=== PATIENT | female | born 1930 | race Caucasian/White ===

== ENCOUNTER 2016-09-30 11:22 | Inpatient (IN) | payer OTHER, MEDICARE ==
[~2016-09-30] VITALS: Ht 147.3 cm; Wt 42.6 kg
[~2016-09-30 11:22] MED LIST: AMLODIPINE10 MG PO; ARANESP200 MCG/0.; ASPIRIN CHILDRE81 MG PO; ATORVASTATIN CA40 MG PO; HYDRODIURIL 2525 MG PO; LASIX20 M1 PO; MYRBETRIQ25 MG PO; PERCOCET 325 MG1 TA2 PO; POTASSIUM CHLO10 ME1 PO; PRILOSEC 20MG C20 MG PO; TRAMADOL50 MG PO; VITAMIN D31000 IU PO
--- NOTE | 2016-09-30 11:35 | NUR ---
85 YEAR OLD FEMALE TO ER WITH COMPLAINTS OF SOB SINCE SATURDAY, O2 SAT ON RA 88-90 % , SOB INCREASES WITH EXERTION AND SPEAKING. PT HAS HISTORY OF ANEMIA, PT NOTED TO BE PALE. DENIES CP BUT STATES THAT SHE FEELS LIKE HER HEART IS RACING, HR 94 ON EKG. PT TO ROOM FROM DENNIS
--- NOTE | 2016-09-30 12:06 | NUR ---
APPRECIATE TRIAGE NOT, ALERT, DENIES ANY PAIN. PLACED ON DISPLAY ASSOCIATE, SINUS RHYTHM. AWAITING PROVIDER EVALUATION.
--- NOTE | 2016-09-30 13:03 | NUR ---
EVALUATED BY SANJU CHASE
--- NOTE | 2016-09-30 13:04 | ED GENERAL ADULT ---
History of Present Illness General Chief Complaint: Palpitations Stated Complaint: SOB/PALPATATIONS Source: patient, family, old records Exam Limitations: no limitations Vital Signs & Intake/Output Vital Signs & Intake/Output Vital Signs Date Time Temp Pulse Resp B/P B/P Pulse O2 O2 Flow FiO2 Mean Ox Delivery Rate 09/30 1403 97.8 81 19 131/60 95 Room Air 09/30 1319 81 131/60 09/30 1133 97.9 92 20 150/64 88 Room Air Allergies Coded Allergies: NO KNOWN ALLERGIES (06/06/15) Reconcile Medications Aspirin (Ecotrin*) 81 MG TABLET.DR 1 TAB PO DAILY HEART HEALTH (Reported) Atorvastatin Calcium (Lipitor) 40 MG TABLET 1 TAB PO DAILY CHOLESTEROL ( Reported) Cholecalciferol (Vitamin D3) (Vitamin D3) 400 UNIT TABLET 1 TAB PO DAILY SUPPLEMENT (Reported) Hydroxychloroquine Sulfate 200 MG TABLET 1 TAB PO D LUPUS (Reported) Omeprazole (Prilosec) 20 MG CAPSULE.DR 1 CAP PO DAILY GI (Reported) Potassium Chloride 10 MEQ TABLET.ER 2 TAB PO BID SUPPLEMENT (Reported) Prednisone 5 MG TABLET 1 TAB PO BID LUPUS (Reported) Triage Note: 85 YEAR OLD FEMALE TO ER WITH COMPLAINTS OF SOB SINCE SATURDAY, O2 SAT ON RA 88-90 % , SOB INCREASES WITH EXERTION AND SPEAKING. PT HAS HISTORY OF ANEMIA, PT NOTED TO BE PALE. DENIES CP BUT STATES THAT SHE FEELS LIKE HER HEART IS RACING, HR 94 ON EKG Triage Nurses Notes Reviewed? yes HPI: Patient is an 85-year-old female presents complaining of dyspnea with exertion and heart racing sensation. Symptoms onset on Saturday. Symptoms are mild at rest, worsened with exertion. Patient reports that she had 7 episodes of black diarrhea on Saturday, no black stools since then. Patient has a history of myelodysplastic disorder receives injections for anemia and has required blood transfusion previously. Patient takes 81 mg of aspirin daily, takes ibuprofen intermittently and has been on prednisone daily for the past one month. Patient denies chest pain, abdominal pain, dyspepsia, nausea, vomiting, cough, fevers, chills. (RENA BILLS,BRAYDEN) Past History Travel History Traveled to [place] past 21 day No Medical History Any Pertinent Medical History? 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 No (BRAYDEN DELGADILLO) Review of Systems Review of Systems Constitutional: Denies: chills, fever. EENTM: Reports: no symptoms. Respiratory: Reports: short of breath (WITH EXERTION). Denies: cough. Cardiovascular: Reports: palpitations. Denies: chest pain, peripheral edema, syncope. GI: Reports: changes in stool (saturday, NONE SINCE). Denies: abdominal pain, nausea, vomiting. Musculoskeletal: Reports: no symptoms. Skin: Reports: no symptoms. Neurological/Psychological: Reports: no symptoms. Hematologic/Endocrine: Reports: no symptoms. Immunologic/Allergic: Reports: no symptoms. (BRAYDEN DELGADILLO) Physical Exam Physical Exam General Appearance: well developed/nourished, alert, awake Head: atraumatic, normal appearance Eyes: Bilateral: normal appearance, PERRL, EOMI. Ears, Nose, Throat: normal pharynx, normal ENT inspection, hearing grossly normal Neck: normal inspection, supple, full range of motion Respiratory: normal breath sounds, chest non-tender, no respiratory distress, lungs clear Cardiovascular: regular rate/rhythm (NO APPRECIABLE MURMUR) Peripheral Pulses: 2+ dorsalis pedis (R), 2+ dorsalis pedis (L) Gastrointestinal: soft, non-tender Rectal: dark stool, heme positive Back: normal inspection, normal range of motion Extremities: normal inspection, normal capillary refill, normal range of motion, no edema Neurologic/Psych: awake, alert, oriented x 3, normal mood/affect Skin: intact, normal color, warm/dry Lymphatic: no anterior cervical bryan Core Measures ACS in differential dx? Yes ASA ordered for poss ACS? No-d/t bleeding/risk of CVA/TIA Diagnosis: No Severe Sepsis Present: No Septic Shock Present: No (BRAYDEN DELGADILLO) Progress Differential Diagnoses I considered the following diagnoses in my evaluation of the patient: Plan of Care: Orders Procedure Date/time Status Regular Diet 09/30 D Active BLOOD PRODUCT PICKUP 09/30 1512 Active Misc Message 09/30 1508 Active ED Holding Orders 09/30 1508 Active Vital Signs 09/30 1508 Active Code Status 09/30 1508 Active Admit to inpatient 09/30 1448 Active Patient Data 09/30 1440 Active LEUKOCYTE POOR (PACKED CELLS) 09/30 1419 Active Intake & Output 09/30 1339 Active MISTAKE 09/30 1305 Active Telemetry/Gm/Svp [employer] 09/30 1305 Active TROPONIN LEVEL 09/30 1305 Complete PROTHROMBIN TIME 09/30 1305 Complete COMPREHENSIVE METABOLIC PANEL 09/30 1305 Complete CBC WITHOUT DIFFERENTIAL 09/30 1305 Complete TYPE & SCREEN (NOT X-MATCH) 09/30 1305 Active EKG 09/30 1124 Active Laboratory Tests 09/30/16 1341: Anion Gap 10, Estimated GFR > 60, BUN/Creatinine Ratio 21.3, Glucose 117 H, Calcium 8.4, Total Bilirubin 0.4, AST 24, ALT 32, Alkaline Phosphatase 97, Troponin I < 0.01, Total Protein 7.1, Albumin 3.2 L, Globulin 3.9, Albumin/ Globulin Ratio 0.8 L, PT 12.1, INR 1.15, CBC w Diff MAN DIFF ORDERED, RBC 1.49 L, MCV 105.1 H, MCH 31.3 H, RDW 25.5 H, MPV 7.9, Gran % 45.0, Lymphocytes % 41.4, Monocytes % 13.6 H, Eosinophils % 0, Basophils % 0 L, Absolute Granulocytes 1.0 L, Segmented Neutrophils 60, Absolute Lymphocytes 0.9 L, Lymphocytes 35, Monocytes 5, Absolute Monocytes 0.3, Absolute Eosinophils 0, Absolute Basophils 0, Nucleated RBCs 9 H, Platelet Estimate ADEQUATE, Polychromasia 1+, Hypochromic-Microcytic 3+, Poikilocytosis 2+, Anisocytosis 2+, Macrocytic Cells 2+, Schistocytes , PUBS MCHC 29.8 L 09/30/2016 1:10:36 PM: Discussed with Dr. Bajwa 09/30/2016 2:20:30 PM: Critical hemoglobin discussed with patient and her family. Patient consented to blood transfusion after risks and benefits were discussed. Rectal exam performed no melena present but stool was dark and guaiac positive. 2 units of PRBC ordered. 09/30/2016 2:27:13 PM: Discussed with Dr. Tucker: can have admitting team contact him after they have evaluated patient. 09/30/2016 2:35:30 PM: Discussed with Dr. Carreon for admission (BRAYDEN DELGADILLO) Diagnostic Imaging: Viewed by Me: Radiology Read. Discussed w/RAD: Radiology Read. Initial ED EKG: NORMAL SINUS RHYTHM 94 BPM NORMAL AXIS, pvc PRESENT, MINIMAL st DEPRESSION IN LEADS v5 AND v6 THAT IS CHANGED FROM PREVIOUS ekg Prior EKG: changed Rhythm Strip: normal sinus rhythm (BRAYDEN DELGADILLO) Departure Departure Disposition: STILL A PATIENT Condition: Stable Clinical Impression Primary Impression: Symptomatic anemia Referrals: JIN FRANCISCO MD (PCP/Family) Departure Forms: Customer Survey General Discharge Information Admission Note Spoke With: ELISE CARREON MD Documentation of Exam: Documentation of any treatments & extenuating circumstances including Concerns Regarding Discharge (functional status, medication knowledge or non-compliance, living conditions, etc.) that warrant an admission rather than observation: Blood transfusion, serial complete blood cell counts, consider hematology and GI consultation. (BRAYDEN DELGADILLO) PA/PALLET SORTER Co-Sign Statement Statement: ED Attending supervision documentation- [x] I saw and evaluated the patient. I have also reviewed all the pertinent lab results and diagnostic results. I agree with the findings and the plan of care as documented in the PA's/PALLET SORTER's documentation. [] I have reviewed the ED Record and agree with the PA's/PALLET SORTER's documentation. [] Additions or exceptions (if any) to the PAs/PALLET SORTER's note and plan are summarized below: [] (SIM PROCTOR,NATALEE Borges) Critical Care Note Critical Care Note Critical Care Time: 30-74 min (BRAYDEN DELGADILLO)
[2016-09-30] MEDS ORDERED: HYDROXYCHLOROQ200 M2 PO (13:41)
[2016-09-30] MEDS ORDERED: PREDNISONE5 M1 PO (13:42)
[2016-09-30] MEDS ORDERED: VITAMIN D3400 UNI1 PO (13:42)
[2016-09-30] MEDS ORDERED: ASPIRIN EC81 M1 PO (13:43)
--- NOTE | 2016-09-30 13:44 | NUR ---
LABS DRAWN AND SENT BY THIS [facility]. BLUE,SST,PINK,LAV
[2016-09-30 13:55] LABS: ABSOLUTE BASOPHIL COUNT 0 /CUMM (0.0-0.2); ABSOLUTE EOSINOPHIL COUNT 0 /CUMM (0.0-0.7); ABSOLUTE MONOCYTE COUNT 0.3 /CUMM (0.10-0.60); BASOPHIL % 0 % (0.0-2.0); EOSINOPHIL % 0 % (0-5); RED BLOOD CELL CT 1.49 /CUMM (4.20-5.40)
[2016-09-30 13:58] LABS: ABSOLUTE LYMPH COUNT 0.9 /CUMM (1.2-3.4); MEAN CORPUSCULAR HGB 31.3 PG (27.0-31.0); MEAN CORPUSCULAR HGB CONC 29.8 G/DL (33.0-37.0); MEAN CORPUSCULAR VOLUME 105.1 FL (81.0-99.0); MEAN PLATELET VOLUME 7.9 FL (7.4-10.4); PLATELET COUNT 223 /CUMM (130-400); RBC DISTRIBUTION WIDTH 25.5 % (11.5-14.5)
[2016-09-30 14:01] LABS: PT 12.1 SEC (9.4-12.5)
[2016-09-30 14:02] LABS: HEMATOCRIT 15.7 % (37-47)
--- NOTE | 2016-09-30 14:05 | NUR ---
CRITICAL TEST RESULTS [id number] GRUPO HOANG 85 F TESTS AND RESULTS: HGB 4.7 HCT 15.7 Results received and read back by: MICHAEL ALMONTE Results received date and time: 09/30/16 1405 The following provider was notified of the results, and read the results back: BRAYDEN BILLS Notified date and time: 09/30/16 at 1405
--- NOTE | 2016-09-30 14:10 | RADIOLOGY REPORT ---
EXAMINATION: XR PORTABLE CHEST CLINICAL INFORMATION: Dyspnea with exertion. Rule out CHF. COMPARISON: 10/14/2015 TECHNIQUE: Portable AP upright view of the chest was obtained. FINDINGS: Lungs are hyperexpanded with architectural distortion in the upper lobes, consistent with COPD. No consolidation, pneumothorax, or pleural effusion. No appreciable interstitial edema. Cardiac silhouette is within normal limits in size. Pulmonary vasculature is normal. Multiple old left-sided rib fractures are again noted. Bones are osteopenic. There is scoliosis of the thoracolumbar spine with associated degenerative spondylosis. IMPRESSION: 1. Chronic changes of COPD. 2. No acute findings. No convincing radiographic evidence of CHF.
--- NOTE | 2016-09-30 14:10 | NUR ---
SANJU CHASE AT BEDSIDE
--- NOTE | 2016-09-30 14:18 | NUR ---
PT GUIAC+ PER SANJU NEAL.
[2016-09-30 14:26] LABS: WHITE BLOOD CELL COUNT 2.2 /CUMM (4.8-10.8)
--- NOTE | 2016-09-30 14:54 | History & Physical ---
KOJO PROCTOR,[facility] 09/30/16 1453: General Information and HPI MD Statement: I have seen and personally examined GRUPO HOANG and documented this H&P. The patient is a 85 year old F who presented with a patient stated chief complaint of [wrist, shortness breath, and palpitation]. Source of Information: patient, family, old records Exam Limitations: no limitations History of Present Illness: 85/F with PMHx HTN, HLD, SLE on Hydroxychloroquine, MDS diagnosed with BM biopsy on January, she is on darbepoetin every 2 weeks who presents to the [facility] ED complaining of exertional dyspnea, palpitation, and generalized weakness That started last Saturday. On last Saturday patient had multiple semi-formed, large and dark bowel movements, soon after on the same day she started complaining of generalize weakness, exertional dyspnea, and palpitation. Patient was admitted on March 2016 because of low H&H. Patient is taking aspirin and prednisone. She does not remember if she ever had a colonoscopy or upper endoscopy. Patient follows with oncology every 2 weeks to check CBC and receive darbepoetin , her last visit was 11 days ago, at that visit she was told that her H&H is normal. Patient denies nausea, vomiting, abdominal pain, chest pain, dizziness, lightheadedness, or loss of consciousness. Patient denies any bleeding from her chronic lower extremity varicocele. Allergies/Medications Allergies: Coded Allergies: NO KNOWN ALLERGIES (06/06/15) Home Med list Aspirin (Ecotrin*) 81 MG TABLET.DR 1 TAB PO DAILY HEART HEALTH (Reported) Atorvastatin Calcium (Lipitor) 40 MG TABLET 1 TAB PO DAILY CHOLESTEROL ( Reported) Cholecalciferol (Vitamin D3) (Vitamin D3) 400 UNIT TABLET 1 TAB PO DAILY SUPPLEMENT (Reported) Hydroxychloroquine Sulfate 200 MG TABLET 1 TAB PO D LUPUS (Reported) Omeprazole (Prilosec) 20 MG CAPSULE.DR 1 CAP PO DAILY GI (Reported) Potassium Chloride 10 MEQ TABLET.ER 2 TAB PO BID SUPPLEMENT (Reported) Prednisone 5 MG TABLET 1 TAB PO BID LUPUS (Reported) Past History Travel History Traveled to [place] past 21 day No Medical History Neurological: NONE EENT: NONE Cardiovascular: hypertension, hyperlipidemia Respiratory: NONE Gastrointestinal: NONE Hepatic: NONE Renal: NONE, urinary incontinence Musculoskeletal: NONE Psychiatric: NONE Endocrine: NONE Blood Disorders: MYELODYSPLASIA Cancer(s): NONE INFORMATICS CONSULTANT/Reproductive: NONE History of MRSA: No History of VRE: No History of CDIFF: No Influenza Vaccine: 03/10/15 Surgical History Surgical History: SKIN GRAFT Past Family/Social History Psychosocial History Services at Home: None ETOH Use: denies use Illicit Drug Use: denies illicit drug use Review of Systems Review of Systems Constitutional: Reports: weakness. Denies: chills, fever, unexplained weight loss. EENTM: Denies: blurred vision, double vision, visual changes. Cardiovascular: Reports: palpitations. Denies: chest pain, edema, orthopena, peripheral edema, syncope. Respiratory: Reports: short of breath. Denies: cough, hemoptysis, orthopnea, sputum production, stridor, wheezing. GI: Reports: melena. Denies: abdominal pain, bloating, constipation, diarrhea, distention, nausea, bloody stool, vomiting. Genitourinary: Denies: discharge, dysuria, hematuria. Musculoskeletal: Denies: back pain, joint pain. Exam & Diagnostic Data Last 24 Hrs of Vital Signs/I&O Vital Signs Date Time Temp Pulse Resp B/P B/P Pulse O2 O2 Flow FiO2 Mean Ox Delivery Rate 09/30 1652 98.2 77 19 130/60 87 Room Air 09/30 1627 98.9 73 18 124/60 93 Room Air 09/30 1403 97.8 81 19 131/60 95 Room Air 09/30 1319 81 131/60 09/30 1133 97.9 92 20 150/64 88 Room Air Intake & Output 09/30 1600 09/30 0800 09/30 0000 Intake Total 240 Output Total Balance 240 Intake, Oral 240 Patient 42.638 kg Weight Physical Exam General Appearance Alert, Oriented X3, Cooperative, No Acute Distress Skin No Rashes, bilateral lower extremity erythema up to mid vaughn. She is wearing tight socks with bandages because of recurrent varicose vein bleeding Skin Temp/Moisture Exam: Cool/Dry Sepsis Skin Exam (color): Pale HEENT Atraumatic, PERRLA, EOMI, Dry oral mucosa, pale bilateral conjunctiva Cardiovascular Regular Rate, Normal S1, Normal S2, No Murmurs, multiple extra beats Lungs Clear to Auscultation, Normal Air Movement Abdomen Soft, No Tenderness, increased bowel sounds Neurological Normal Speech, Strength at 5/5 X4 Ext Extremities No Edema, bilateral lower extremity erythema and bandages Last 24 Hrs of Labs/Red: Laboratory Tests 09/30/16 1341: Anion Gap 10, Estimated GFR > 60, BUN/Creatinine Ratio 21.3, Glucose 117 H, Calcium 8.4, Total Bilirubin 0.4, AST 24, ALT 32, Alkaline Phosphatase 97, Troponin I < 0.01, Total Protein 7.1, Albumin 3.2 L, Globulin 3.9, Albumin/ Globulin Ratio 0.8 L, PT 12.1, INR 1.15, CBC w Diff MAN DIFF ORDERED, RBC 1.49 L, MCV 105.1 H, MCH 31.3 H, RDW 25.5 H, MPV 7.9, Gran % 45.0, Lymphocytes % 41.4, Monocytes % 13.6 H, Eosinophils % 0, Basophils % 0 L, Absolute Granulocytes 1.0 L, Segmented Neutrophils 60, Absolute Lymphocytes 0.9 L, Lymphocytes 35, Monocytes 5, Absolute Monocytes 0.3, Absolute Eosinophils 0, Absolute Basophils 0, Nucleated RBCs 9 H, Platelet Estimate ADEQUATE, Polychromasia 1+, Hypochromic-Microcytic 3+, Poikilocytosis 2+, Anisocytosis 2+, Macrocytic Cells 2+, Schistocytes , PUBS MCHC 29.8 L Diagnostic Data EKG Results Sinus rhythm, regular, PVCs, no ST elevation or depression, no T-wave abnormalities. QTC within normal limits CXR Results No acute finding Assessment/Plan Assessment: 85/F who was admitted before because of low H&H. She had a history of multiple blood transfusion due to MDS. She was diagnosed last year with SLE and now on hydroxychloroquine and prednisone 5 mg twice a day. Patient reported multiple large dark stool on Saturday just prior to her symptom. #Acute anemia on top of chronic macrocytic anemia Patient CBC was done on oncology clinic visit 10 days ago and was above the target, today she presented with symptomatic anemia that developed post multiple large dark stool. She is taking aspirin and prednisone, this increases her chance of getting GI ulcers and bleed. Patient was found to be guaiac-positive in the ED. 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 Ration hemoglobin was 4.7. Constant for blood transfusion was obtained in the ED * Keep patient clear liquid with no reds allowed for now, then NPO starting midnight. * [place]son type, 2 packed RBCs transfusion. * We'll give IV fluid maintenance, patient is dehydrated. * CBC posttransfusion and then every 12 hours. * We'll continue PPI 40 mg * We will consult GI in the morning. * We will inform Dr. Gibbons oncologist. #Hyperlipidemia/hypertension/SLE * Continue statin * Continue hydroxychloroquine * Hold all antihypertensive medication Clear liquid diet, nothing by mouth starting midnight DVT prophylaxis Alps although only DNR/DNI As Ranked By This Provider Problem List: 1. Leg hematoma 2. Symptomatic anemia 3. Lupus (systemic lupus erythematosus) 4. HTN (hypertension) 5. HLD (hyperlipidemia) Core Measures/Miscellaneous Acute Coronary Syndrome ACS Diagnosis: No Cerebrovascular Accident CVA/TIA Diagnosis: No Congestive Heart Failure CHF Diagnosis: No Venous Thromboembolism VTE Risk Factors: Acute medical illness, Age > 40 No [facility] VTE prophylaxis d/t: No contraindications No VTE Pharm Prophylaxis d/t: No contraindications VTE Diagnosis: No VTE Type: NONE VTE Confirmed by (Test): NONE Severe Sepsis Severe Sepsis Present: No Septic Shock Septic Shock Present: No Miscellaneous Documentation Attending Case Discussed With: ELISE MUNOZ MD Primary Care Physician: JIN FRANCISCO MD. Patient sees these Specialists JIN FRANCISCO MD Level of Patient Care: General Medicine KIMBERLY MCKEON 09/30/161945: Resident Review Statement Resident Statement: examined this patient, discussed with agribusiness internship, agreed with agribusiness internship, discussed with family, reviewed EMR data (avail), reviewed images, amended to note Other Findings: This is 85-year-old female with past medical history of hypertension, hyperlipidemia, myelodysplastic syndrome on conservative management, SLE, GERD, bilateral leg swelling. Presented to the emergency department with chief complain off shortness of breath, palpitation and generalized weakness that was started last Saturday. Patient stated that she had multiple episode of diarrhea for 1 day that was started on , she stated the color of her stool was black without any bright blood been noticed. Patient stated that she follow with the consistent across the street, and that she receive darbepoetin alpha every other week. Patient stated that she received at least 2 time a transfusion when she went to the cancer Center since her discharge in March 2016. According to her daughters for the past couple months her H&H was stable and she didn't require any blood transfusion. Physical examination, lab and imaging as above. Assessment: -Acute and chronic anemia: The patient guaiac was positive in the emergency department, GI was consulted and stated that he will come to evaluate her in a.m. as the patient didn't have overt bleeding. Given the patient's underlying history of MDS that could be added onto her questionable GI bleeding. She will need to receive packed RBCs, and GI evaluation for possible inpatient or outpatient scope. -Generalized weakness: Most likely secondary to acute anemia, also the patient complain off palpitation that could be secondary to anemia. Plan: -Admit patient to general medicine floor -Vitals every shift, I and O's -Guaiac all stool -Repeat CBC after blood transfusion, transfuse as needed to keep H&H above 8 -Normal saline IV fluid hydration at 50 mL/h one bag -Start IV Protonix daily -Start the patient on clear liquid diet no reds -Vitamin B12, folate -Physical therapy consultation in a.m -Hematology consultation in a.m. -Gastrology consultation in a.m. -Hold home medication off aspirin -Continue the rest of her home medication -Pain pathway -DVT prophylaxis:Alps -DNI DNR TAMMY PROCTOR,[facility] 09/30/16 3938: Attending MD Review Statement Attending Statement Attending MD Statement: examined this patient, discuss w/resident/PA/MANAGER ZONE, agreed w/resident/PA/MANAGER ZONE, discussed with family, reviewed EMR data (avail), discussed with nursing, discussed with case mgmt, reviewed images, amended to note Attending Assessment/Plan: 85F with PMHx of HTN, HLD, SLE on Hydroxychloroquine, MDS on darbepoetin every 2 weeks c/w symptomatic anemia. Hb 4. Has been doing good for last 3 months, other odonnell she was getting transfussion every 2-3 weeks. Now c/w multiple dark stools. Admit to 2PRBC for now. She will need more transfusion. Inform Dr Jauregui about her admission. GI consult as Pt has Dark stools and is Guiac positive. Hold ASA. c/w PPI ALPS for DVT Px
--- NOTE | 2016-09-30 15:05 | NUR ---
IV ACCESS X 2 ESTABLISHED AT THIS TIME. #20 LFA AND #20 LAC. PLAN IS FOR ADMISSION TO HOSPITAL AND RECEIVE 2 UNITS PRBC PER SANJU CHASE.
--- NOTE | 2016-09-30 15:51 | NUR ---
BLOOD TRANSFUSION STARTED.
--- NOTE | 2016-09-30 16:12 | NUR ---
PT ADMITTED TO ROOM 230-2
--- NOTE | 2016-09-30 16:26 | NUR ---
REPORT GIVEN TO KORINA MAYNARD.
[2016-09-30 16:52] VITALS: BP 130/60
--- NOTE | 2016-09-30 17:12 | Admission Certification ---
Admission Certification Certification Statement - As attending physician, I certify that at the time of - admission, based on clinical presentation, severity of - symptoms, need for further diagnostic testing and - therapeutic interventions, and risk of adverse outcomes - without in-hospital treatment, in my clinical assessment, - this patient requires an acute hospital stay for a minimum - of two nights or longer. I have also considered psychsocial - factors such as support system, advanced age, financial - issues, cognitive issues, and failed out-patient treatments, - past re-admission history, safety of patient, and lack of - compliance as applicable. Specific rationale supporting this admission is: Symptomatic anemia, Hem/onc consult, will need PRBC, GI workup
--- NOTE | 2016-09-30 17:48 | NUR ---
ADMISSION NOTE- PT ARRIVED TO FLOOR AT 1645, A/O X 3 ON RA 87-88% DENIES SOB, PLACED ON 2L AT THIS TIME. DENIES CP DENIES PALPITATIONS, VSS, SKIN INTACT, BRUISING TO BLE, TRACE EDEMA, TWO BANDAIDS IN PLACE TO SHINS-ONE ON EACH- "BLOOD BLISTERS" DENIES PAIN OR DISCOMFORT. AX1 WITH CANE TO BATHROOM. FIRST UNIT OF BLOOD INFUSING FROM ER. PLAN IS TO GIVE 2 UNITS AND RECHECK CBC AT MIDNIGHT. CLEAR LIQ DIET. ORIENTED TO ROOM AND CALL MONTEMAYOR WILL MONITOR
[2016-09-30 18:08] VITALS: BP 132/60
--- NOTE | 2016-09-30 18:17 | NUR ---
FIRST UNIT OF BLOOD COMPLETED AT THIS TIME. VSS. CALL PLACED FOR SECOND UNIT OF BLOOD TO BE DELIVERED NOW.
[2016-09-30 19:26] VITALS: BP 128/60
[2016-09-30 21:46] VITALS: BP 128/68
--- NOTE | 2016-09-30 21:51 | NUR ---
2ND UNIT OF BLOOD FINISHED INFUSING AT THIS TIME. VSS. PT 97% ON 2L, PER SENIOR SQL DEVELOPER WEAN PT OFF O2, O2 TURNED DOWN TO 1L AT THIS TIME. PT DENIES SOB/CP. WILL CONTINUE TO MONITOR.
[2016-10-01 00:35] LABS: ABSOLUTE BASOPHIL COUNT 0 /CUMM (0.0-0.2); ABSOLUTE EOSINOPHIL COUNT 0 /CUMM (0.0-0.7); ABSOLUTE GRANULOCYTE CT 0.5 /CUMM (1.4-6.5); ABSOLUTE LYMPH COUNT 1.5 /CUMM (1.2-3.4); ABSOLUTE MONOCYTE COUNT 0.3 /CUMM (0.10-0.60); BASOPHIL % 0 % (0.0-2.0); EOSINOPHIL % 0 % (0-5); MEAN CORPUSCULAR HGB 30.9 PG (27.0-31.0); MEAN CORPUSCULAR HGB CONC 32.1 G/DL (33.0-37.0); MEAN PLATELET VOLUME 8.7 FL (7.4-10.4); PLATELET COUNT 195 /CUMM (130-400); RBC DISTRIBUTION WIDTH 21.9 % (11.5-14.5); WHITE BLOOD CELL COUNT 2.3 /CUMM (4.8-10.8)
[2016-10-01 00:36] LABS: GRANULOCYTE % 22.4 % (42.2-75.2)
[2016-10-01 01:01] LABS: HEMATOCRIT 23.8 % (37-47); MEAN CORPUSCULAR VOLUME 96.3 FL (81.0-99.0); RED BLOOD CELL CT 2.47 /CUMM (4.20-5.40)
[2016-10-01 06:52] VITALS: BP 124/70
--- NOTE | 2016-10-01 07:28 | Cons- Hematology ---
General Information and HPI Consulting Request Date of Consult: 10/01/16 Requested By: ELISE MUNOZ MD History of Present Illness: The patient is an 85-year-old woman with biopsy-proven myelodysplasia. She has been maintained on erythropoietin replacement therapy and red cell transfusions. She recently was begun on low dose prednisone by her dynamotor repairer resulting in stabilization of her hematocrit. This suggests a component of chronic hemolysis was present. Patient is now admitted with a sudden drop in hematocrit associated with black stools. Patient currently denies significant shortness of breath or chest pain. Stools have been found to be heme positive. Allergies/Medications Allergies: Coded Allergies: NO KNOWN ALLERGIES (06/06/15) Home Med List: Aspirin (Ecotrin*) 81 MG TABLET.DR 1 TAB PO DAILY HEART HEALTH (Reported) Atorvastatin Calcium (Lipitor) 40 MG TABLET 1 TAB PO DAILY CHOLESTEROL ( Reported) Cholecalciferol (Vitamin D3) (Vitamin D3) 400 UNIT TABLET 1 TAB PO DAILY SUPPLEMENT (Reported) Hydroxychloroquine Sulfate 200 MG TABLET 1 TAB PO D LUPUS (Reported) Omeprazole (Prilosec) 20 MG CAPSULE.DR 1 CAP PO DAILY GI (Reported) Potassium Chloride 10 MEQ TABLET.ER 2 TAB PO BID SUPPLEMENT (Reported) Prednisone 5 MG TABLET 1 TAB PO BID LUPUS (Reported) Current Medications: Current Medications Sig/Zeb Start time Last Medication Dose Route Stop Time Status Admin Acetaminophen 500 MG Q6P PRN 09/30 1615 AC PO Acetaminophen/ 1 TAB Q8P PRN 09/30 1615 AC Hydrocodone Bitart PO Atorvastatin Calcium 40 MG DAILY 10/01 1000 AC PO Cholecalciferol 400 IU DAILY 10/01 1000 AC PO Hydroxychloroquine 200 MG DAILY 10/01 1000 AC Sulfate PO Hydroxychloroquine 200 MG .[D] 09/30 1615 DC Sulfate PO Oxycodone/ 1 TAB Q6P PRN 09/30 1615 AC Acetaminophen PO Pantoprazole Sodium 40 MG DAILY 09/30 1615 AC 09/30 IV 2005 Patient Medication 1 UNIT ONE NR 09/30 1630 NE Teaching ED 09/30 1700 Patient Medication 1 UNIT ONE NR 09/30 1630 NE Teaching ED 09/30 1700 Patient Medication 1 UNIT ONE NR 09/30 1630 NE Teaching ED 09/30 1700 Prednisone 5 MG BID 10/01 1000 AC PO Sodium Chloride 1,000 ML Q10H 09/30 2350 AC 09/30 IV 10/01 0949 2355 Sodium Chloride 1,000 ML .Q10H 09/30 1615 DC IV Review of Systems Review of Systems: Patient denies headaches or dizziness. She denies nausea vomiting or abdominal pain. Patient denies significant shortness of breath presently. Patient denies dysuria hematuria. Patient denies focal neurologic deficit Past History Travel History Traveled to [place] past 21 day No Medical History Blood Transfusion Hx: Yes Neurological: NONE EENT: NONE Cardiovascular: hypertension, hyperlipidemia Respiratory: NONE Gastrointestinal: NONE Hepatic: NONE Renal: urinary incontinence Musculoskeletal: NONE Psychiatric: NONE Endocrine: NONE Blood Disorders: MYELODYSPLASIA Cancer(s): NONE C.O.D. CLERK/Reproductive: NONE Surgical History Surgical History: SKIN GRAFT RIGHT LEG Psychosocial History Services at Home: None Smoking Status: Former Smoker ETOH Use: denies use Illicit Drug Use: denies illicit drug use Exam & Diagnostic Data Vital Signs and I&O Vital Signs Date Time Temp Pulse Resp B/P B/P Pulse O2 O2 Flow FiO2 Mean Ox Delivery Rate 10/01 0652 98.1 66 16 124/70 98 Nasal 1.0L Cannula 10/01 0000 97 Nasal 1.0L Cannula 09/30 2146 98.4 68 16 128/68 97 Nasal 2.0L Cannula 09/30 1926 98.1 69 20 128/60 100 Nasal Cannula 09/30 1808 98.2 67 19 132/60 97 Nasal Cannula 09/30 1652 98.2 77 19 130/60 87 Room Air 09/30 1627 98.9 73 18 124/60 93 Room Air 09/30 1403 97.8 81 19 131/60 95 Room Air 09/30 1319 81 131/60 09/30 1133 97.9 92 20 150/64 88 Room Air Intake & Output 10/01 0800 10/01 0000 09/30 1600 Intake Total 200 1050 240 Output Total Balance 200 1050 240 Intake, Blood 700 Product Intake, Oral 200 350 240 Number 0 Bowel Movements Patient 94 lb 0.01 oz 94 lb 0.01 oz Weight Gen.: in NAD ENT: Sclera anicteric Chest: Normal respiratory effort, decreased breath sounds Cor: RRR, no extra sounds Abdomen: Soft, bowel sounds present, no tenderness, no rebound Extremities: Without clubbing, cyanosis, or asymmetric edema Neurology: Alert and oriented 3, no gross deficit Skin: No rashes Last 48 Hours of Lab Results: Laboratory Tests 10/01 09/30 0000 1341 Chemistry Sodium (137 - 145 mmol/L) 137 Potassium (3.5 - 5.1 mmol/L) 4.5 Chloride (98 - 107 mmol/L) 101 Carbon Dioxide (22 - 30 mmol/L) 25 Anion Gap (5 - 16) 10 BUN (7 - 17 mg/dL) 17 Creatinine (0.5 - 1.0 mg/dL) 0.8 Estimated GFR (>60 ml/min) > 60 BUN/Creatinine Ratio (7 - 25 %) 21.3 Glucose (65 - 99 mg/dL) 117 H Calcium (8.4 - 10.2 mg/dL) 8.4 Total Bilirubin (0.2 - 1.3 mg/dL) 0.4 AST (14 - 36 U/L) 24 ALT (9 - 52 U/L) 32 Alkaline Phosphatase (<127 U/L) 97 Troponin I (< 0.11 ng/ml) < 0.01 Total Protein (6.3 - 8.2 g/dL) 7.1 Albumin (3.5 - 5.0 g/dL) 3.2 L Globulin (1.9 - 4.2 gm/dL) 3.9 Albumin/Globulin Ratio (1.1 - 2.2 %) 0.8 L Vitamin B12 (239 - 931 pg/mL) 955 H Folate (2.76 - 20.0 ng/mL) > 20.0 H Coagulation PT (9.4 - 12.5 SEC) 12.1 INR (0.90 - 1.19) 1.15 Hematology CBC w Diff MAN DIFF ORDERED MAN DIFF ORDERED WBC (4.8 - 10.8 /CUMM) 2.3 L 2.2 L RBC (4.20 - 5.40 /CUMM) 2.47 L 1.49 L Hgb (12.0 - 16.0 G/DL) 7.6 L 4.7 *L Hct (37 - 47 %) 23.8 L 15.7 *L MCV (81.0 - 99.0 FL) 96.3 105.1 H MCH (27.0 - 31.0 PG) 30.9 31.3 H RDW (11.5 - 14.5 %) 21.9 H 25.5 H Plt Count (130 - 400 /CUMM) 195 223 MPV (7.4 - 10.4 FL) 8.7 7.9 Gran % (42.2 - 75.2 %) 22.4 L 45.0 Lymphocytes % (20.5 - 51.1 %) 64.2 H 41.4 Monocytes % (1.7 - 9.3 %) 13.4 H 13.6 H Eosinophils % (0 - 5 %) 0 0 Basophils % (0.0 - 2.0 %) 0 L 0 L Absolute Granulocytes (1.4 - 6.5 /CUMM) 0.5 L 1.0 L Segmented Neutrophils (42.2 - 75.2 %) 28 L 60 Absolute Lymphocytes (1.2 - 3.4 /CUMM) 1.5 0.9 L Lymphocytes (20.5 - 51.1 %) 68 H 35 Monocytes (1.7 - 9.3 %) 4 5 Absolute Monocytes (0.10 - 0.60 /CUMM) 0.3 0.3 Absolute Eosinophils (0.0 - 0.7 /CUMM) 0 0 Absolute Basophils (0.0 - 0.2 /CUMM) 0 0 Nucleated RBCs (0.0 - 0.0 /100WBC) 4 H 9 H Platelet Estimate (ADEQUATE) ADEQUATE ADEQUATE Polychromasia 1+ 1+ Hypochromic-Microcytic 3+ Poikilocytosis 2+ Anisocytosis 2+ Macrocytic Cells 1+ 2+ Schistocytes PUBS MCHC (33.0 - 37.0 G/DL) 32.1 L 29.8 L Assessment/Plan Assessment: 1. MDS-improved with transfusion. Hemolysis seems unlikely given normal total bilirubin Recommend- Continue prednisone 5 mg twice a day Transfuse to keep hematocrit > 24% 2. GI bleeding-as per gastroenterology. Workup seems appropriate given sudden drop in hematocrit from baseline of 30%(recently) Recommendations: .. Consult Acknowledgment - Thank you for your consult request.
[2016-10-01 08:14] LABS: ABSOLUTE BASOPHIL COUNT 0 /CUMM (0.0-0.2); ABSOLUTE EOSINOPHIL COUNT 0 /CUMM (0.0-0.7); ABSOLUTE GRANULOCYTE CT 1.3 /CUMM (1.4-6.5); ABSOLUTE LYMPH COUNT 1.3 /CUMM (1.2-3.4); ABSOLUTE MONOCYTE COUNT 0.1 /CUMM (0.10-0.60); BASOPHIL % 0.3 % (0.0-2.0); EOSINOPHIL % 0.2 % (0-5); HEMATOCRIT 24.6 % (37-47); MEAN CORPUSCULAR HGB 30.6 PG (27.0-31.0); MEAN CORPUSCULAR HGB CONC 31.7 G/DL (33.0-37.0); MEAN CORPUSCULAR VOLUME 96.4 FL (81.0-99.0); MEAN PLATELET VOLUME 8.5 FL (7.4-10.4); PLATELET COUNT 171 /CUMM (130-400); RBC DISTRIBUTION WIDTH 23.6 % (11.5-14.5); RED BLOOD CELL CT 2.55 /CUMM (4.20-5.40); WHITE BLOOD CELL COUNT 2.7 /CUMM (4.8-10.8)
[2016-10-01 08:36] LABS: GRANULOCYTE % 47.9 % (42.2-75.2)
--- NOTE | 2016-10-01 11:39 | PN- Housestaff ---
See Addendum Subjective Follow-up For: Acute anemia on top of chronic anemia Subjective: Afebrile, hemodynamically stable, no acute overnight events reported. Patient H &H is stable posttransfusion yesterday. Patient denies any current active complaints. She reported that all her symptom significantly improved post transfusion. Review of Systems Constitutional: Reports: no symptoms. Objective Last 24 Hrs of Vital Signs/I&O Vital Signs Date Time Temp Pulse Resp B/P B/P Pulse O2 O2 Flow FiO2 Mean Ox Delivery Rate 10/01 1418 97.0 66 18 112/60 98 Room Air 10/01 0800 98 Nasal 1.0L Cannula 10/01 0652 98.1 66 16 124/70 98 Nasal 1.0L Cannula 10/01 0000 97 Nasal 1.0L Cannula 09/30 2146 98.4 68 16 128/68 97 Nasal 2.0L Cannula 09/30 1926 98.1 69 20 128/60 100 Nasal Cannula 09/30 1808 98.2 67 19 132/60 97 Nasal Cannula 09/30 1652 98.2 77 19 130/60 87 Room Air 09/30 1627 98.9 73 18 124/60 93 Room Air Intake & Output 10/01 1600 10/01 0800 10/01 0000 Intake Total 235 901 1221 Output Total Balance 979 900 0644 Intake, Blood 700 Product Intake, IV 400 Intake, Oral 500 200 350 Number 0 Bowel Movements Patient 42.638 kg Weight Physical Exam General Appearance: Alert, Oriented X3, Cooperative, No Acute Distress HEENT: Atraumatic, PERRLA, EOMI, Mucous Membr. moist/pink Cardiovascular: Regular Rate, Normal S1, Normal S2, No Murmurs Lungs: Clear to Auscultation, Normal Air Movement Abdomen: Normal Bowel Sounds, Soft, No Tenderness Neurological: Normal Speech Extremities: No Cyanosis, No Edema, B/L LE erythema Current Medications: Current Medications Sig/Zeb Start time Last Medication Dose Route Stop Time Status Admin Acetaminophen 500 MG Q6P PRN 09/30 1615 AC PO Acetaminophen/ 1 TAB Q8P PRN 09/30 1614 AC Hydrocodone Bitart PO Atorvastatin Calcium 40 MG DAILY 10/01 1000 AC 10/01 PO 906 Cholecalciferol 400 IU DAILY 10/01 1000 AC 10/01 PO 09 Hydroxychloroquine 200 MG DAILY 10/01 1000 AC 10/01 Sulfate PO 0907 Hydroxychloroquine 200 MG .[D] 09/30 161 DC Sulfate PO Oxycodone/ 1 TAB Q6P PRN 09/30 161 AC Acetaminophen PO Pantoprazole Sodium 40 MG DAILY 09/30 1615 AC 10/01 IV 0907 Patient Medication 1 ED .STK-MED ONE 10/01 1348 DC Teaching ED 10/01 1349 Patient Medication 1 UNIT ONE NR 09/[address] Teaching ED 09/30 1700 Patient Medication 1 UNIT ONE NR 09/[address] Teaching ED 09/30 1700 Patient Medication 1 UNIT ONE NR 09/[address] [facility] ED 09/30 1700 Prednisone 5 MG BID 10/01 1000 AC 10/01 PO 0907 Sodium Chloride 1,000 ML Q10H 09/30 2350 DC 09/30 IV 10/01 0949 2355 Sodium Chloride 1,000 ML .Q10H 09/30 161 DC IV Last 24 Hrs of Lab/Red Results Last 24 Hrs of Labs/Mics: Laboratory Tests 10/01/16 0700: Anion Gap 10, Estimated GFR > 60, BUN/Creatinine Ratio 12.5, CBC w Diff MAN DIFF ORDERED, RBC 2.55 L, MCV 96.4, MCH 30.6, RDW 23.6 H, MPV 8.5, Gran % 47.9, Lymphocytes % 48.8, Monocytes % 2.8, Eosinophils % 0.2, Basophils % 0.3, Absolute Granulocytes 1.3 L, Segmented Neutrophils 38 L, Band Neutrophils 2, Absolute Lymphocytes 1.3, Lymphocytes 56 H, Monocytes 4, Absolute Monocytes 0.1 L, Absolute Eosinophils 0, Absolute Basophils 0, Nucleated RBCs 2 H, Platelet Estimate VERIFIED BY SMEAR, Polychromasia 1+, Anisocytosis 1+, Macrocytic Cells 1+, PUBS MCHC 31.7 L 10/01/16 0000: CBC w Diff MAN DIFF ORDERED, RBC 2.47 L, MCV 96.3, MCH 30.9, RDW 21.9 H, MPV 8.7, Gran % 22.4 L, Lymphocytes % 64.2 H, Monocytes % 13.4 H, Eosinophils % 0 , Basophils % 0 L, Absolute Granulocytes 0.5 L, Segmented Neutrophils 28 L, Absolute Lymphocytes 1.5, Lymphocytes 68 H, Monocytes 4, Absolute Monocytes 0.3 , Absolute Eosinophils 0, Absolute Basophils 0, Nucleated RBCs 4 H, Platelet Estimate ADEQUATE, Polychromasia 1+, Macrocytic Cells 1+, PUBS MCHC 32.1 L Assessment/Plan Assessment: 85/F who was admitted before because of low H&H. She had a history of multiple blood transfusion due to MDS. She was diagnosed last year with SLE and now on hydroxychloroquine and prednisone 5 mg twice a day. Patient reported multiple large dark stool on Saturday just prior to her symptom. #Acute anemia on top of chronic macrocytic anemia Patient CBC was done on oncology clinic visit 10 days ago and was above the target, today she presented with symptomatic anemia that developed post multiple large dark stool few days prior to admission. She is taking aspirin and prednisone, this increases her chance of getting GI ulcers and bleed. Patient was found to be guaiac-positive in the ED. 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 On admission hemoglobin was 4.7. Consent for blood transfusion was obtained in the ED. patient received 2 packed blood transfusion yesterday after which her hemoglobin being increased to 7.4. * Keep patient clear liquid with no reds allowed for now * CBC every 12 hours. * We'll continue PPI 40 mg * We will follow GI recommendation * We will follow Dr. Gibbons oncologist recommendation #Hyperlipidemia/hypertension/SLE * Continue statin * Continue hydroxychloroquine * Hold all antihypertensive medication #Increase oxygen demand Sedated patient required 2 L of oxygen to saturate above 92. This morning she is saturating well on 1 L of oxygen. She required no oxygen at baseline. * We will try to wean patient off oxygen Clear liquid diet DVT prophylaxis Alps although only DNR/DNI Problem List: 1. HTN (hypertension) 2. HLD (hyperlipidemia) 3. Myelodysplastic syndrome 4. Lupus (systemic lupus erythematosus) 5. Anemia Pain Ratin Pain Location: NA Pain Goal: Remain pain free Pain Plan: See A&P Tomorrow's Labs & Rationales: CBC to f/u Hb
[2016-10-01 14:18] VITALS: BP 112/60
--- NOTE | 2016-10-01 15:05 | Cons- Gastroenterology ---
General Information and HPI Consulting Request Date of Consult: 10/01/16 Requested By: KRISHNA PROCTOR,MARIO Reason for Consult: I was notified this morning by the hospitalist service to assess patient with multifactorial anemia (MDS) and OB-positive stool, HD #2. Source of Information: patient, old records Exam Limitations: no limitations History of Present Illness: 85-year-old female, HTN, HLD, SLE on Hydroxychloroquine, MDS diagnosed via BM biopsy 01/2016, on Darbepoetin Q 2 weeks & transfusions as needed, osteopenia, DJD, COPD, history of falls with left rib fractures, who presented to the [place] [facility] 09/30/2016 at 11:22 a.m., with dyspnea on exertion, palpitations & generalized weakness since 09/26/2016, attributed to symptomatic anemia. She claims she had dark stools on 09/26/2016, but was not taking any iron or Pepto- Bismol. She claimed her last bowel movement was 09/26/2016, but is passing flatus. Her baseline HCT is 30, and was 15.7 on admission. Upon arrival, BP 150/64, P 92, R 20, T 97.9, O2 sat RA 88%. She reportedly had dark bowel movements as an outpatient. She was OB-positive as an inpatient. She was taking ECASA 81 mg daily (denies history of ASHD or CVA) and Prednisone 5 mg BID for SLE. She denied any NSAIDs. She has never had an EGD or colonoscopy, but she may have remotely had a flexible sigmoidoscopy at her PMD > 20 years ago. She denied any nausea, vomiting, reflux (although she is on outpatient OTC Prilosec daily x years), odynophagia, dysphagia, hematemesis, early satiety, abdominal pain, chest pain, diarrhea, obstipation, change in stool caliber, or rectal bleeding. *The patient later stated that she is on the Prilosec x years for GERD, which alleviates it completely, however she is dependent on this. 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 The patient denied any abdominal trauma to suggest retroperitoneal bleeding. She denied any bleeding disorders. The patient denied any jaundice, fevers, chills, symptoms of UTI or URI, weight loss, or change in appetite. [id number]-year cigarette smoker, stopped in 1986. No EtOH or drugs. The patient is on clears po.*The patient initially refused an endoscopic GI workup, but now agrees to it. The patient's father reportedly had some type of "liver cancer" (non-cirrhotic- ? if primary vs. met), otherwise there is no family history of any definite GI malignancy, GI disease, or inherited liver disease. The patient received 2u PRBC on 09/30/2016. She denied any gross hematuria, hemoptysis or vaginal spotting. She does not see PATTERN MARKER. She was previously in [facility] 03/21/2016 to 03/22/2016, with a post-traumatic right popliteal hematoma, requiring transfusion. 03/21/2016: Doppler study RLE- negative DVT, + right popliteal fossa cyst. 03/29/2005: IPEP- normal, CHELLE- negative, ANCA- negative. 09/30/2016: *Admission labs- WBC 2.2 (60S/35L/5M/9 NRBC), H/H 4.7/15.7, MCV 105.1, RDW 25.5, PLT 223, glu 117, BUN/Cr 17/0.8, GFR > 60, normal lytes, including Ca 8.4, albumin 3.2, globulin 3.9, TBil 0.4, alk phos 97, AST 24, ALT 32, troponin < .01, B12 955, folate > 20 (*no Fe studies sent on admission labs? ! ), PT 12.1, INR 1.15. 10/01/2016: WBC 2.7, H//H 7.8/24.6 (post 2u PRBC on 09/30/2016), PLT 171; BUN/Cr 10/0.8, GFR > 60. 09/30/2016: XR PORTABLE CHEST- 1. Chronic changes of COPD. 2. No acute findings. No convincing radiographic evidence of CHF. 3. Multiple left-sided rib fractures. 4. DJD with scoliosis of T-L spine. 5. Osteopenia. 09/30/2016: EKG- NSR @ 94, normal axis, normal intervals, occasional unifocal PVCs, ? LVH, no acute ischemic change. Allergies/Medications Allergies: Coded Allergies: NO KNOWN ALLERGIES (06/06/15) Home Med List: Aspirin (Ecotrin*) 81 MG TABLET. 1 TAB PO DAILY HEART HEALTH (Reported) Atorvastatin Calcium (Lipitor) 40 MG TABLET 1 TAB PO DAILY CHOLESTEROL ( Reported) Cholecalciferol (Vitamin D3) (Vitamin D3) 400 UNIT TABLET 1 TAB PO DAILY SUPPLEMENT (Reported) Hydroxychloroquine Sulfate 200 MG TABLET 1 TAB PO D LUPUS (Reported) Omeprazole (Prilosec) 20 MG CAPSULE.DR 1 CAP PO DAILY GI (Reported) Potassium Chloride 10 MEQ TABLET.ER 2 TAB PO BID SUPPLEMENT (Reported) Prednisone 5 MG TABLET 1 TAB PO BID LUPUS (Reported) Current Medications: Current Medications Sig/Zeb Start time Last Medication Dose Route Stop Time Status Admin Acetaminophen 500 MG Q6P PRN 09/30 1615 AC PO Acetaminophen/ 1 TAB Q8P PRN 09/30 1615 AC Hydrocodone Bitart PO Atorvastatin Calcium 40 MG DAILY 10/01 1000 AC 10/01 PO 0907 Bisacodyl 5 MG DAILY 10/01 1430 AC 10/01 PO 1555 Cholecalciferol 400 IU DAILY 10/01 1000 AC 10/01 PO 0907 Hydroxychloroquine 200 MG DAILY 10/01 1000 AC 10/01 Sulfate PO 0907 Oxycodone/ 1 TAB Q6P PRN 09/30 1615 AC Acetaminophen PO Pantoprazole Sodium 40 MG DAILY 09/30 1615 AC 10/01 IV 0907 Patient Medication 1 ED .STK-MED ONE 10/01 1348 [facility] ED 10/01 1349 Patient Medication 1 UNIT ONE NR 09/30 1630 [facility] ED 09/30 1700 Patient Medication 1 UNIT ONE NR 09/30 1630 [facility] ED 09/30 1700 Patient Medication 1 UNIT ONE NR 09/30 1630 [facility] ED 09/30 1700 Polyethylene Glycol 1 GAL ONCE ONE 10/01 2100 AC PO 10/01 2101 Prednisone 5 MG BID 10/01 1000 AC 10/01 PO 0907 Senna/Docusate Sodium 2 TAB DAILY 10/01 1430 AC 10/01 PO 1555 Sodium Chloride 1,000 ML Q10H 09/30 2350 DC 09/30 IV 10/01 0949 2355 Sodium Chloride 1,000 ML .Q10H 09/30 1615 DC IV Past History Travel History Traveled to [place] past 21 day No Medical History Blood Transfusion Hx: Yes Neurological: NONE EENT: NONE Cardiovascular: hypertension, hyperlipidemia Respiratory: COPD Gastrointestinal: GERD (dependent on OTC Prilosec xyrs) Hepatic: NONE Renal: urinary incontinence Musculoskeletal: degen joint disease, falls, SLE Psychiatric: NONE Endocrine: NONE, osteopenia Blood Disorders: anemia, MYELODYSPLASIA Cancer(s): NONE PATTERN MARKER/Reproductive: NONE Surgical History Surgical History: SKIN GRAFT RIGHT LEG POST FALL Family History Relations & Conditions If Any: FATHER (Hx "liver ca" (? if primary vs. met); non-cirrhotic.). , Age 60+ ; Cause: Postoperative complication. MOTHER, , Age 60+; Cause: Unknown cause of morbidity or mortality. SON, , Age 30-40; Cause: MVA (motor vehicle accident). Psychosocial History Where Do You Live? Home Who Do You Live With? spouse (in law apt next to dtr), self Services at Home: None Primary Language: Georgian Smoking Status: Former Smoker ETOH Use: denies use Illicit Drug Use: denies illicit drug use Living Will? no Power of Airfreight Operations Agent/HCP? no Other Social History: . Lives alone in in-law apt next to r. Ex-38 pk yr cigarette smoker, D/ C 1986. No EtOH. No drugs. Uses cane. 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 Had 4 children- 1 son 30, MVA. 1 living son & 2 dtrs- [employer]. Functional Ability ADLs Independent: dressing, eating, toileting, bathing. Ambulation: cane IADLs Independent: shopping, housework, finances, food prep, telephone, transportation , medication admin. 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 Review of Systems Review of Systems: Full 14 point ROS was noncontributory, and as above. Review of Systems Constitutional: Denies: chills, diaphoresis, fever, malaise, weakness, unexplained weight loss. EENTM: Denies: blurred vision, double vision, visual changes, eye pain, eye drainage, eye tearing, icterus, ear discharge, ear pain, ear redness, hearing changes, nasal congestion, epistaxis, nasal pain, throat pain, throat swelling, mouth pain, tooth pain. Cardiovascular: Denies: chest pain, edema, orthopena, palpitations, peripheral edema, syncope. 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 Denies: cough, hemoptysis, orthopnea, sputum production, stridor, wheezing. GI: Reports: constipation (mild). Denies: no symptoms (GERD- dependent on Prilosec) , abdominal pain, bloating, diarrhea, distention, bowel incontinence, melena, nausea, bloody stool, changes in stool, vomiting, steatorrhea. Genitourinary: Denies: no symptoms (incontinence), discharge, dysuria, frequency, hematuria, hesitation, nocturia, pain, urgency. Musculoskeletal: Reports: joint pain (DJD). Denies: back pain, gout, joint swelling, muscle pain , muscle stiffness, neck pain. Skin: Reports: change in skin color (chronic LE B/L). Denies: cysts, change in hair/ nails, dryness, erythema, jaundice, lesions, lymphangitis, lumps, moles, rash. Neurological/Psychological: Denies: anxiety, ataxia, cognitive dysfunction, confusion, depressed, dementia, emotional problems, headache, numbness, paresthesia, pre-existing deficit, petit mal seizures, tingling, tremors, tonic-clonic seizures, unable to move lower ext , unable to move upper ext, weakness. Hematologic/Endocrine: Denies: no symptoms (MDS), bruising, bleeding, polyuria, polydipsia. Immunologic/Allergic: Denies: splenectomy, HIV/AIDS, lymphadenopathy. All Other Systems: Reviewed and Negative Exam & Diagnostic Data Vital Signs and I&O Vital Signs Date Time Temp Pulse Resp B/P B/P Pulse O2 O2 Flow FiO2 Mean Ox Delivery Rate 10/01 1418 97.0 66 18 112/60 98 Room Air 10/01 0800 98 Nasal 1.0L Cannula 10/01 0652 98.1 66 16 124/70 98 Nasal 1.0L Cannula 10/01 0000 97 Nasal 1.0L Cannula 09/30 2146 98.4 68 16 128/68 97 Nasal 2.0L Cannula 09/30 1926 98.1 69 20 128/60 100 Nasal Cannula 09/30 1808 98.2 67 19 132/60 97 Nasal Cannula 09/30 1652 98.2 77 19 130/60 87 Room Air 09/30 1627 98.9 73 18 124/60 93 Room Air Intake & Output 10/01 1600 10/01 0400 09/30 1600 09/30 0400 09/29 1600 09/29 0400 Intake Total 1100 1050 240 Output Total Balance 1100 1050 240 Intake, Blood 700 Product Intake, IV 400 Intake, Oral 700 350 240 Number 0 Bowel Movements Patient 94 lb 0.01 oz 94 lb 0.01 oz Weight Physical Exam: Well-developed well-nourished, thin chronically ill-appearing female, in no apparent distress. Sclera anicteric. Conjunctiva slightly pale. Oropharynx clear. False uppers. There is no adenopathy, thyromegaly, or JVD. No peripheral stigmata of inflammatory bowel disease or chronic liver disease on exam. No spiders on the anterior chest wall. No CVA tenderness. +T-L scoliosis. Breast & pelvic exams: API. Lungs: clear to A&P, with decreased BS at the bases B/L. Heart exam: regular rate rhythm, S1 and S2, without any murmur. Abdominal exam: normal bowel sounds, soft scaphoid belly, nontender, without guarding or rebound. No mass. No organomegaly. No fluid shift. No epigastric bruit. No pulsatile mass. Digital rectal exam: OB-positive in ER on admission 09/30/2016. *Repeat digital rectal exam by myself 10/01/2016: empty vault, contents OB- negative, no BRB, no mass, normal sphincter tone, no external hemorrhoids. No fissure. (? if melena at home 09/26/2016- not witnessed). Extremities: without C , C, or E. Stasis dermatitis changes LE B/L. +DJD. No palpable cords. No palmar erythema. No Dupuytren's contractures. Distal pulses 1+ bilaterally. DTRs 1+ bilaterally. Alert and oriented x 3. No tremor. No asterixis. Results Pertinent Lab Results: Laboratory Tests 10/01 10/01 0700 0000 Chemistry Sodium (137 - 145 mmol/L) 136 L Potassium (3.5 - 5.1 mmol/L) 4.1 Chloride (98 - 107 mmol/L) 100 Carbon Dioxide (22 - 30 mmol/L) 26 Anion Gap (5 - 16) 10 BUN (7 - 17 mg/dL) 10 Creatinine (0.5 - 1.0 mg/dL) 0.8 Estimated GFR (>60 ml/min) > 60 BUN/Creatinine Ratio (7 - 25 %) 12.5 Iron (37 - 170 ug/dL) 40 TIBC (265 - 497 ug/dL) Pending Ferritin (11.1 - 264 ng/mL) Pending Hematology CBC w Diff MAN DIFF ORDERED MAN DIFF ORDERED WBC (4.8 - 10.8 /CUMM) 2.7 L 2.3 L RBC (4.20 - 5.40 /CUMM) 2.55 L 2.47 L Hgb (12.0 - 16.0 G/DL) 7.8 L 7.6 L Hct (37 - 47 %) 24.6 L 23.8 L MCV (81.0 - 99.0 FL) 96.4 96.3 MCH (27.0 - 31.0 PG) 30.6 30.9 RDW (11.5 - 14.5 %) 23.6 H 21.9 H Plt Count (130 - 400 /CUMM) 171 195 MPV (7.4 - 10.4 FL) 8.5 8.7 Gran % (42.2 - 75.2 %) 47.9 22.4 L Lymphocytes % (20.5 - 51.1 %) 48.8 64.2 H Monocytes % (1.7 - 9.3 %) 2.8 13.4 H Eosinophils % (0 - 5 %) 0.2 0 Basophils % (0.0 - 2.0 %) 0.3 0 L Absolute Granulocytes (1.4 - 6.5 /CUMM) 1.3 L 0.5 L Segmented Neutrophils (42.2 - 75.2 %) 38 L 28 L Band Neutrophils (0.0 - 5.0 %) 2 Absolute Lymphocytes (1.2 - 3.4 /CUMM) 1.3 1.5 Lymphocytes (20.5 - 51.1 %) 56 H 68 H Monocytes (1.7 - 9.3 %) 4 4 Absolute Monocytes (0.10 - 0.60 /CUMM) 0.1 L 0.3 Absolute Eosinophils (0.0 - 0.7 /CUMM) 0 0 Absolute Basophils (0.0 - 0.2 /CUMM) 0 0 Nucleated RBCs (0.0 - 0.0 /100WBC) 2 H 4 H Platelet Estimate (ADEQUATE) VERIFIED BY SMEAR ADEQUATE Polychromasia 1+ 1+ Anisocytosis 1+ Macrocytic Cells 1+ 1+ PUBS MCHC (33.0 - 37.0 G/DL) 31.7 L 32.1 L 09/30 1341 Chemistry Sodium (137 - 145 mmol/L) 137 Potassium (3.5 - 5.1 mmol/L) 4.5 Chloride (98 - 107 mmol/L) 101 Carbon Dioxide (22 - 30 mmol/L) 25 Anion Gap (5 - 16) 10 BUN (7 - 17 mg/dL) 17 Creatinine (0.5 - 1.0 mg/dL) 0.8 Estimated GFR (>60 ml/min) > 60 BUN/Creatinine Ratio (7 - 25 %) 21.3 Glucose (65 - 99 mg/dL) 117 H Calcium (8.4 - 10.2 mg/dL) 8.4 Total Bilirubin (0.2 - 1.3 mg/dL) 0.4 AST (14 - 36 U/L) 24 ALT (9 - 52 U/L) 32 Alkaline Phosphatase (<127 U/L) 97 Troponin I (< 0.11 ng/ml) < 0.01 Total Protein (6.3 - 8.2 g/dL) 7.1 Albumin (3.5 - 5.0 g/dL) 3.2 L Globulin (1.9 - 4.2 gm/dL) 3.9 Albumin/Globulin Ratio (1.1 - 2.2 %) 0.8 L Vitamin B12 (239 - 931 pg/mL) 955 H Folate (2.76 - 20.0 ng/mL) > 20.0 H Coagulation PT (9.4 - 12.5 SEC) 12.1 INR (0.90 - 1.19) 1.15 Hematology CBC w Diff MAN DIFF ORDERED WBC (4.8 - 10.8 /CUMM) 2.2 L RBC (4.20 - 5.40 /CUMM) 1.49 L Hgb (12.0 - 16.0 G/DL) 4.7 *L Hct (37 - 47 %) 15.7 *L MCV (81.0 - 99.0 FL) 105.1 H MCH (27.0 - 31.0 PG) 31.3 H RDW (11.5 - 14.5 %) 25.5 H Plt Count (130 - 400 /CUMM) 223 MPV (7.4 - 10.4 FL) 7.9 Gran % (42.2 - 75.2 %) 45.0 Lymphocytes % (20.5 - 51.1 %) 41.4 Monocytes % (1.7 - 9.3 %) 13.6 H Eosinophils % (0 - 5 %) 0 Basophils % (0.0 - 2.0 %) 0 L Absolute Granulocytes (1.4 - 6.5 /CUMM) 1.0 L Segmented Neutrophils (42.2 - 75.2 %) 60 Absolute Lymphocytes (1.2 - 3.4 /CUMM) 0.9 L Lymphocytes (20.5 - 51.1 %) 35 Monocytes (1.7 - 9.3 %) 5 Absolute Monocytes (0.10 - 0.60 /CUMM) 0.3 Absolute Eosinophils (0.0 - 0.7 /CUMM) 0 Absolute Basophils (0.0 - 0.2 /CUMM) 0 Nucleated RBCs (0.0 - 0.0 /100WBC) 9 H Platelet Estimate (ADEQUATE) ADEQUATE Polychromasia 1+ Hypochromic-Microcytic 3+ Poikilocytosis 2+ Anisocytosis 2+ Macrocytic Cells 2+ Schistocytes PUBS MCHC (33.0 - 37.0 G/DL) 29.8 L Imaging/Other Studies: 09/30/2016: XR PORTABLE CHEST- 1. Chronic changes of COPD. 2. No acute findings. No convincing radiographic evidence of CHF. 3. Multiple left-sided rib fractures. 4. DJD with scoliosis of T-L spine. 5. Osteopenia. 09/30/2016: EKG- NSR @ 94, normal axis, normal intervals, occasional unifocal PVCs, ? LVH, no acute ischemic change. Assessment/Plan Assessment/Recommendations: 85-year-old female, HTN, HLD, SLE on Hydroxychloroquine, MDS diagnosed via BM biopsy 01/2016, on Darbepoetin Q 2 weeks & transfusions as needed, osteopenia, DJD, COPD, history of falls with left rib fractures, who presented to the [place] ER 09/30/2016 at 11:22 a.m., with dyspnea on exertion, palpitations & generalized weakness since 09/26/2016, attributed to symptomatic anemia. She claims she had dark stools on 09/26/2016, but was not taking any iron or Pepto- Bismol. She claimed her last bowel movement was 09/26/2016, but is passing flatus. Her baseline HCT is 30, and was 15.7 on admission. Upon arrival, BP 150/64, P 92, R 20, T 97.9, O2 sat RA 88%. She reportedly had dark bowel movements as an outpatient. She was OB-positive as an inpatient. She was taking ECASA 81 mg daily (denies history of ASHD or CVA) and Prednisone 5 mg BID for SLE. She denied any NSAIDs. She has never had an EGD or colonoscopy, but she may have remotely had a flexible sigmoidoscopy at her PMD > 20 years ago. She denied any nausea, vomiting, reflux (although she is on outpatient OTC Prilosec daily x years), odynophagia, dysphagia, hematemesis, early satiety, abdominal pain, chest pain, diarrhea, obstipation, change in stool caliber, or rectal bleeding. *The patient later stated that she is on the Prilosec x years for GERD, which alleviates it completely, however she is dependent on this. 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 The patient denied any abdominal trauma to suggest retroperitoneal bleeding. She denied any bleeding disorders. The patient denied any jaundice, fevers, chills, symptoms of UTI or URI, weight loss, or change in appetite. Ed-[id number]-[id number]-year cigarette smoker, stopped in 1986. No EtOH or drugs. The patient is on clears po. *The patient initially refused an endoscopic GI workup, but now agrees to it. The patient's father reportedly had some type of "liver cancer" (non-cirrhotic- ? if primary vs. met), otherwise there is no family history of any definite GI malignancy, GI disease, or inherited liver disease. The patient received 2u PRBC on 09/30/2016. She denied any gross hematuria, hemoptysis or vaginal spotting. She does not see PATTERN MARKER. She was previously in [facility] 03/21/2016 to 03/22/2016, with a post-traumatic right popliteal hematoma, requiring transfusion. 03/21/2016: Doppler study RLE- negative DVT, + right popliteal fossa cyst. 03/29/2005: IPEP- normal, CHELLE- negative, ANCA- negative. 09/30/2016: *Admission labs- WBC 2.2 (60S/35L/5M/9 NRBC), H/H 4.7/15.7, MCV 105.1, RDW 25.5, PLT 223, glu 117, BUN/Cr 17/0.8, GFR > 60, normal lytes, including Ca 8.4, albumin 3.2, globulin 3.9, TBil 0.4, alk phos 97, AST 24, ALT 32, troponin < .01, B12 955, folate > 20 (*no Fe studies sent on admission labs? ! ), PT 12.1, INR 1.15. 10/01/2016: WBC 2.7, H//H 7.8/24.6 (post 2u PRBC on 09/30/2016), PLT 171; BUN/Cr 10/0.8, GFR > 60. 09/30/2016: XR PORTABLE CHEST- 1. Chronic changes of COPD. 2. No acute findings. No convincing radiographic evidence of CHF. 3. Multiple left-sided rib fractures. 4. DJD with scoliosis of T-L spine. 5. Osteopenia. 09/30/2016: EKG- NSR @ 94, normal axis, normal intervals, occasional unifocal PVCs, ? LVH, no acute ischemic change. *The patient has acute on chronic anemia. She reportedly had melena on 2016 at home, which was unwitnessed. She had OB-positive stool on admission in the ER & now has empty vault, contents OB negative, on digital exam by myself 10/01/2016. She has never had an EGD or colonoscopy. She was on baby aspirin 81 mg daily, without any history of ASHD or CVA. She is on Prednisone, which is a relative risk factor for upper GI bleeding, as is COPD. There is no pertinent family history, other than the fact that her father reportedly had some type of "liver cancer (non-cirrhotic)", details unknown. Certainly, GI bleeding superimposed on MDS, is a distinct possibility, benign versus malignant. There is no history of abdominal trauma to suggest retroperitoneal bleeding. The normal TBilirubin goes against hemolysis. SUGGEST: Clears po for now, then NPO after 11:59 p.m. on 10/01/2016, for EGD/colonoscopy on Saturday10/02/2016. The risks and benefits of EGD/colonoscopy were discussed with the patient, and informed consent was obtained from her. GoLytely 1 gallon po now please, over 4-5 hours. Continue to hold ASA. Agree with IV Protonix 40 mg daily. Will defer to medical team for stress dose steroids (on H ydroxychloroquine, Prednisone 5 mg po BID for SLE). Supplemental O2 as needed. Add iron, TIBC, and ferritin to pre-transfusion labs of 09/30/2016. Continue Dulcolax and Senna. Pelvic exam API. Follow-up with hematology for Darbepoietin. Consideration for CT AP depending on clinical course to rule out retroperitoneal bleed (doubt). Check CBC Q12h for now. T&C 4u PRBC. Keep Hgb > 7 (no history of ASHD). If the above workup is negative, consideration for outpatient PillCam. The above findings and recommendations were discussed with the medical house staff. Further recommendations to follow, depending on clinical course. Problem List: 1. Symptomatic anemia 2. Occult blood positive stool 3. GERD (gastroesophageal reflux disease) 4. Constipation 5. MDS (myelodysplastic syndrome) Copies To: KRISHNA PROCTOR,MARIO; MARYAM PROCTOR,JIN Bain; DWIGHT PROCTOR,JESSE Cox; NANCY PROCTOR,MACKENZIE Yan. Consult Acknowledgment - Thank you for your consult request.
--- NOTE | 2016-10-01 22:18 | NUR ---
LATE ENTRY FOR 1999: BOWEL PREP FOR COLONSCOPY FOR TOMORROW MORNING STARTED AT THIS TIME. 2200-PT ABLE TO HAVE 1 BM AT THIS TIME. DENIES PAIN OR CRAMPING, BOWEL PREP CONTINUED.
[2016-10-01 22:46] VITALS: BP 132/54
[2016-10-02 06:57] VITALS: BP 110/64
--- NOTE | 2016-10-02 06:59 | PN- Housestaff ---
DANITA PROCTOR,JE 10/02/16 0658: Subjective Follow-up For: anemia sp 2prbc Subjective: Pt seen today, she is feeling "OK", reports light brown waterry stool this morning. plan for colonoscopy and endoscopy at noon. if no significant findings, plan to discharge today or tomorrow as hb currently stable post 2 units. she was on 1l o2 nc but denies shortness of breath. ros negative. Review of Systems Constitutional: Reports: see HPI. Objective Last 24 Hrs of Vital Signs/I&O Vital Signs Date Time Temp Pulse Resp B/P B/P Pulse O2 O2 Flow FiO2 Mean Ox Delivery Rate 10/02 0800 95 Nasal 1.0L Cannula 10/02 0657 98.0 68 18 110/64 95 Nasal Cannula 10/02 0000 95 Nasal 1.0L Cannula 10/01 2246 97.7 66 18 132/54 95 Nasal Cannula 10/01 1600 Nasal 1.0L Cannula 10/01 1418 97.0 66 18 112/60 98 Room Air Intake & Output 10/02 1600 10/02 0800 10/02 0000 Intake Total 500 Output Total Balance 500 Intake, IV 500 Number 2 1 Bowel Movements Patient 42.638 kg Weight Physical Exam General Appearance: Alert, Oriented X3, Cooperative, No Acute Distress Cardiovascular: Regular Rate, Normal S1, Normal S2, No Murmurs Lungs: Clear to Auscultation, Normal Air Movement Abdomen: Normal Bowel Sounds, Soft, No Tenderness Neurological: Normal Speech Current Medications: Current Medications Sig/Zeb Start time Last Medication Dose Route Stop Time Status Admin Acetaminophen 500 MG Q6P PRN 09/30 1615 AC PO Acetaminophen/ 1 TAB Q8P PRN 09/30 1615 AC Hydrocodone Bitart PO Atorvastatin Calcium 40 MG DAILY 10/01 1000 AC 10/01 PO 0907 Bisacodyl 5 MG DAILY 10/01 1430 AC 10/01 PO 1555 Cholecalciferol 400 IU DAILY 10/01 1000 AC 10/01 PO 0907 Hydroxychloroquine 200 MG DAILY 10/01 1000 AC 10/01 Sulfate PO 0907 Oxycodone/ 1 TAB Q6P PRN 09/30 1615 AC Acetaminophen PO Pantoprazole Sodium 40 MG DAILY 09/30 1615 AC 10/02 IV 0951 Patient Medication 1 ED .STK-MED ONE 10/[address] Teaching ED 10/01 1349 Polyethylene Glycol 1 GAL ONCE ONE 10/01 2100 DC 10/01 PO 10/01 Prednisone 5 MG BID 10/01 1000 AC 10/01 PO 2035 Senna/Docusate Sodium 2 TAB DAILY 10/01 1430 AC 10/01 PO 1555 Last 24 Hrs of Lab/Red Results Last 24 Hrs of Labs/Mics: Laboratory Tests 10/02/16 0640: CBC w Diff MAN DIFF ORDERED, RBC 2.63 L, MCV 96.8, MCH 31.0, RDW 23.3 H, MPV 8.2, Gran % 50.7, Lymphocytes % 47.7, Monocytes % 0.8 L, Eosinophils % 0.6, Basophils % 0.2, Absolute Granulocytes 1.1 L, Segmented Neutrophils 48, Band Neutrophils 1, Absolute Lymphocytes 1.1 L, Lymphocytes 51, Absolute Monocytes 0 L, Absolute Eosinophils 0, Absolute Basophils 0, Nucleated RBCs 3 H, Platelet Estimate VERIFIED BY SMEAR, Polychromasia 1+, Anisocytosis 1+, Macrocytic Cells 1+, Stomatocytes 1+, PUBS MCHC 32.0 L Assessment/Plan Assessment: 85/F who was admitted before because of low H&H. She had a history of multiple blood transfusion due to MDS. She was diagnosed last year with SLE and now on hydroxychloroquine and prednisone 5 mg twice a day. Patient reported multiple large dark stool on Saturday just prior to her symptom. #Acute anemia on top of chronic macrocytic anemia - Patient CBC was done on oncology clinic visit 10 days TAPPER BIT and was above the target, she presented with symptomatic anemia that developed post multiple large dark stool few days prior to admission. She is taking aspirin and prednisone, this increases her chance of getting GI ulcers and bleed. Patient was found to be guaiac-positive in the ED. 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 On admission hemoglobin was 4.7. Consent for blood transfusion was obtained in the ED. patient received 2 packed blood transfusion after which her hemoglobin being increased to 7.4, and stable at 8.1. * NPO for endoscopy and colonoscopy. Discharge if stable post procedure with f/u with PCP, Dr. Thompson, Dr. Bates, and CBC in 1 week. * CBC every 12 hours. * We'll continue PPI 40 mg IV * We will follow GI recommendation * We will follow Dr. Gibbons oncologist recommendation # Hyperlipidemia/hypertension/SLE * Continue statin * Continue hydroxychloroquine * Hold all antihypertensive medication # Increase oxygen demand * We will try to wean patient off oxygen NPO DVT prophylaxis Alps only DNR/DNI Problem List: 1. MDS (myelodysplastic syndrome) 2. Symptomatic anemia Pain Ratin Pain Location: none Pain Goal: Remain pain free Pain Plan: none Tomorrow's Labs & Rationales: cbc for anemia DVT/Prophylaxis: MARIO Rivera 10/02/16 1031: Attending MD Review Statement Attending Statement Attending MD Statement: examined this patient, discuss w/resident/PA/HEALTHCARE MARKETER, agreed w/resident/PA/HEALTHCARE MARKETER, discussed with family, reviewed EMR data (avail), discussed with nursing, discussed with case mgmt, reviewed images, amended to note Attending Assessment/Plan: "85/F with PMHx HTN, HLD, SLE on Hydroxychloroquine, MDS diagnosed with BM biopsy on January, she is on darbepoetin every 2 weeks who presents to the [place] ED complaining of exertional dyspnea, palpitation, and generalized weakness" ASSESSMENT 1. Anemia 2. Myelodysplasia 3. SLE on hydroxychloroquine, steroids 4. Hypertension 5. dyslipidemia PLAN Patient transfused 2 unit of PBC Hematology/consult following Patient agreed to GI work up. Plan for EGD/colon as per GI. Patient with stable h/h at discharge. resume home meds at d/c. check walking pulse oximtery, anticipate d/c soon. f/u OP PCP and hem/onc Dr Thompson.
--- NOTE | 2016-10-02 07:02 | PN- Hematology ---
Subjective Subjective: Patient fatigued, feels improved after red blood cell transfusion Review of Systems: 12 point review of systems otherwise unchanged Objective Vital Signs and I&Os Vital Signs Date Time Temp Pulse Resp B/P B/P Pulse O2 O2 Flow FiO2 Mean Ox Delivery Rate 10/02 0657 98.0 68 18 110/64 95 Nasal Cannula 10/02 0000 95 Nasal 1.0L Cannula 10/01 2246 97.7 66 18 132/54 95 Nasal Cannula 10/01 1600 Nasal 1.0L Cannula 10/01 1418 97.0 66 18 112/60 98 Room Air 10/01 0800 98 Nasal 1.0L Cannula Intake & Output 10/02 0800 10/02 0000 10/01 1600 10/01 0800 10/01 0000 09/30 1600 Intake Total 500 572 659 4510 240 Output Total Balance 500 139 184 2792 240 Intake, Blood 700 Product Intake, IV 500 400 Intake, Oral 500 200 350 240 Number 2 1 0 Bowel Movements Patient 94 lb 0.01 oz 94 lb 0.01 oz Weight Gen.: in NAD ENT: Sclera anicteric Chest: Normal respiratory effort, decreased breath sounds Cor: RRR, no extra sounds Abdomen: Soft, bowel sounds present, no tenderness, no rebound Extremities: Without clubbing, cyanosis, or asymmetric edema Neurology: Alert and oriented 3, no gross deficit Current Medications: Current Medications Sig/Zeb Start time Last Medication Dose Route Stop Time Status Admin Acetaminophen 500 MG Q6P PRN 09/30 1615 AC PO Acetaminophen/ 1 TAB Q8P PRN 09/30 1615 AC Hydrocodone Bitart PO Atorvastatin Calcium 40 MG DAILY 10/01 1000 AC 10/01 PO 0907 Bisacodyl 5 MG DAILY 10/01 1430 AC 10/01 PO 1555 Cholecalciferol 400 IU DAILY 10/01 1000 AC 10/01 PO 0907 Hydroxychloroquine 200 MG DAILY 10/01 1000 AC 10/01 Sulfate PO 0907 Oxycodone/ 1 TAB Q6P PRN 09/30 1615 AC Acetaminophen PO Pantoprazole Sodium 40 MG DAILY 09/30 1615 AC 10/01 IV 0907 Patient Medication 1 ED .STK-MED ONE 10/01 1348 DC Teaching ED 10/01 1349 Polyethylene Glycol 1 GAL ONCE ONE 10/01 2100 DC 10/01 PO 10/01 Prednisone 5 MG BID 10/01 1000 AC 10/01 PO 2036 Senna/Docusate Sodium 2 TAB DAILY 10/01 1430 AC 10/01 PO 1555 Sodium Chloride 1,000 ML Q10H 09/30 2350 DC 09/30 IV 10/01 0949 2355 Results Last 24 Hours of Lab Results: Hematocrit >24 Assessment/Plan Assessment/Recommendations: 1. MDS-continue current management 2. GI bleeding-endoscopies planned
--- NOTE | 2016-10-02 07:17 | PN- Gastroenterology ---
Assessment/Plan Assessment/Recommendations: 85-year-old female, HTN, HLD, SLE on Hydroxychloroquine, MDS diagnosed via BM biopsy 01/2016, on Darbepoetin Q 2 weeks & transfusions as needed, osteopenia, DJD, COPD, history of falls with left rib fractures, who presented to the [place] ER 09/30/2016 at 11:22 a.m., with dyspnea on exertion, palpitations & generalized weakness since 09/26/2016, attributed to symptomatic anemia. She claims she had dark stools on 09/26/2016, but was not taking any iron or Pepto- Bismol. She claimed her last bowel movement was 09/26/2016, but is passing flatus. Her baseline HCT is 30, and was 15.7 on admission. Upon arrival, BP 150/64, P 92, R 20, T 97.9, O2 sat RA 88%. She reportedly had dark bowel movements as an outpatient. She was OB-positive as an inpatient. She was taking ECASA 81 mg daily (denies history of ASHD or CVA) and Prednisone 5 mg BID for SLE. She denied any NSAIDs. She has never had an EGD or colonoscopy, but she may have remotely had a flexible sigmoidoscopy at her PMD > 20 years ago. She denied any nausea, vomiting, reflux (although she is on outpatient OTC Prilosec daily x years), odynophagia, dysphagia, hematemesis, early satiety, abdominal pain, chest pain, diarrhea, obstipation, change in stool caliber, or rectal bleeding. *The patient later stated that she is on the Prilosec x years for GERD, which alleviates it completely, however she is dependent on this. 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 The patient denied any abdominal trauma to suggest retroperitoneal bleeding. She denied any bleeding disorders. The patient denied any jaundice, fevers, chills, symptoms of UTI or URI, weight loss, or change in appetite. Oz-14-hsma-year cigarette smoker, stopped in 1986. No EtOH or drugs. The patient is on clears po. *The patient initially refused an endoscopic GI workup, but now agrees to it. The patient's father reportedly had some type of "liver cancer" (non-cirrhotic- ? if primary vs. met), otherwise there is no family history of any definite GI malignancy, GI disease, or inherited liver disease. The patient received 2u PRBC on 09/30/2016. She denied any gross hematuria, hemoptysis or vaginal spotting. She does not see SENIOR DATA SCIENTIST. She was previously in [facility] 03/21/2016 to 03/22/2016, with a post-traumatic right popliteal hematoma, requiring transfusion. 03/21/2016: Doppler study RLE- negative DVT, + right popliteal fossa cyst. 03/29/2005: IPEP- normal, CHELLE- negative, ANCA- negative. 09/30/2016: *Admission labs- WBC 2.2 (60S/35L/5M/9 NRBC), H/H 4.7/15.7, MCV 105.1, RDW 25.5, PLT 223, glu 117, BUN/Cr 17/0.8, GFR > 60, normal lytes, including Ca 8.4, albumin 3.2, globulin 3.9, TBil 0.4, alk phos 97, AST 24, ALT 32, troponin < .01, B12 955, folate > 20 (*no Fe studies sent on admission labs? ! ), PT 12.1, INR 1.15. 10/01/2016: WBC 2.7, H//H 7.8/24.6 (post 2u PRBC on 09/30/2016), PLT 171; BUN/Cr 10/0.8, GFR > 60. 09/30/2016: XR PORTABLE CHEST- 1. Chronic changes of COPD. 2. No acute findings. No convincing radiographic evidence of CHF. 3. Multiple left-sided rib fractures. 4. DJD with scoliosis of T-L spine. 5. Osteopenia. 09/30/2016: EKG- NSR @ 94, normal axis, normal intervals, occasional unifocal PVCs, ? LVH, no acute ischemic change. *The patient has acute on chronic anemia. She reportedly had melena on 2016 at home, which was unwitnessed. She had OB-positive stool on admission in the ER & now has empty vault, contents OB negative, on digital exam by myself 10/01/2016. She has never had an EGD or colonoscopy. She was on baby aspirin 81 mg daily, without any history of ASHD or CVA. She is on Prednisone, which is a relative risk factor for upper GI bleeding, as is COPD. There is no pertinent family history, other than the fact that her father reportedly had some type of "liver cancer (non-cirrhotic)", details unknown. Certainly, GI bleeding superimposed on MDS, is a distinct possibility, benign versus malignant. There is no history of abdominal trauma to suggest retroperitoneal bleeding. The normal TBilirubin goes against hemolysis. 09/30/2016: Fe 48, TIBC 242, Fe sat 19.8%, ferritin 782 (? acute phase rx- pre- transfx) *As of 10/02/2016, the patient remains hemodynamically stable and afebrile. O2 sat 1L- 95%. She feels stronger after receiving 2 units PRBC earlier this admission. She denied any overt GI bleeding or melena. She denied any chest pain or increased shortness of breath. There is no abdominal pain. She only took 1/2 gallon GoLytely, however she had clearish yellow returns. Medicine and hematology notes appreciated. She remains on IV Protonix 40 mg daily, plus Dulcolax and Senna. SUGGEST: NPO for EGD/colonoscopy on Saturday10/02/2016. The risks and benefits of EGD/ colonoscopy were discussed with the patient, and informed consent was obtained from her. Continue to hold ASA. Agree with IV Protonix 40 mg daily. Will defer to medical team for stress dose steroids (on Hydroxychloroquine, Prednisone 5 mg po BID for SLE). Supplemental O2 as needed. Continue Dulcolax and Senna. Pelvic exam API. Follow-up with hematology for Darbepoietin. Consideration for CT AP depending on clinical course to rule out retroperitoneal bleed (doubt). Check CBC Q12h for now. T&C 4u PRBC. Keep Hgb > 7 (no history of ASHD). If the above workup is negative, consideration for outpatient PillCam. The above findings and recommendations were previously discussed with the medical house staff. Further recommendations to follow, depending on clinical course. Problem List: 1. Symptomatic anemia 2. Occult blood positive stool 3. GERD (gastroesophageal reflux disease) 4. Constipation 5. MDS (myelodysplastic syndrome) Subjective Subjective: 09/30/2016: Fe 48, TIBC 242, Fe sat 19.8%, ferritin 782 (? acute phase rx- pre- transfx) *As of 10/02/2016, the patient remains hemodynamically stable and afebrile. O2 sat 1L- 95%. She feels stronger after receiving 2 units PRBC earlier this admission. She denied any overt GI bleeding or melena. She denied any chest pain or increased shortness of breath. There is no abdominal pain. She only took 1/2 gallon GoLytely, however she had clearish yellow returns. Medicine and hematology notes appreciated. She remains on IV Protonix 40 mg daily, plus Dulcolax and Senna. Review of Systems: Full 14 point ROS was noncontributory, and as above. Review of Systems Constitutional: Denies: chills, diaphoresis, fever, malaise, weakness, unexplained weight loss. EENTM: Denies: blurred vision, double vision, visual changes, eye pain, eye drainage, eye tearing, icterus, ear discharge, ear pain, ear redness, hearing changes, nasal congestion, epistaxis, nasal pain, throat pain, throat swelling, mouth pain, tooth pain. Cardiovascular: Denies: chest pain, edema, orthopena, palpitations, peripheral edema, syncope. 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 Denies: cough, hemoptysis, orthopnea, sputum production, stridor, wheezing. GI: Reports: constipation (mild), stable GERD on PPI. Denies: no symptoms (GERD- dependent on Prilosec), abdominal pain, bloating, diarrhea, distention, bowel incontinence, melena, nausea, bloody stool, changes in stool, vomiting, steatorrhea. Genitourinary: Denies: no symptoms (incontinence), discharge, dysuria, frequency, hematuria, hesitation, nocturia, pain, urgency. Musculoskeletal: Reports: joint pain (DJD). Denies: back pain, gout, joint swelling, muscle pain, muscle stiffness, neck pain. Skin: Reports: change in skin color (chronic LE B/L). Denies: cysts, change in hair/nails, dryness, erythema, jaundice, lesions, lymphangitis, lumps, moles, rash. Neurological/Psychological: Denies: anxiety, ataxia, cognitive dysfunction, confusion, depressed, dementia, emotional problems, headache, numbness, paresthesia, pre-existing deficit, petit mal seizures, tingling, tremors, tonic-clonic seizures, unable to move lower ext , unable to move upper ext, weakness. Hematologic/Endocrine: Denies: no symptoms (MDS), bruising, bleeding, polyuria, polydipsia. Immunologic/Allergic: Denies: splenectomy, HIV/AIDS, lymphadenopathy. All Other Systems: Reviewed and Negative Objective Vital Signs and I&Os Vital Signs Date Time Temp Pulse Resp B/P B/P Pulse O2 O2 Flow FiO2 Mean Ox Delivery Rate 10/02 0657 98.0 68 18 110/64 95 Nasal Cannula 10/02 0000 95 Nasal 1.0L Cannula 10/01 2246 97.7 66 18 132/54 95 Nasal Cannula 10/01 1600 Nasal 1.0L Cannula 10/01 1418 97.0 66 18 112/60 98 Room Air 10/01 0800 98 Nasal 1.0L Cannula Intake & Output 10/02 1600 10/02 0400 10/01 1600 10/01 0400 09/30 1600 09/30 0400 Intake Total 500 1100 1050 240 Output Total Balance 500 1100 1050 240 Intake, Blood 700 Product Intake, IV 500 400 Intake, Oral 700 350 240 Number 2 1 0 Bowel Movements Patient 94 lb 0.01 oz 94 lb 0.01 oz Weight Physical Exam: Well-developed, well-nourished, thin chronically ill-appearing female, in no apparent distress. Sclera anicteric. Conjunctiva less pale. Oropharynx clear. False uppers. There is no adenopathy, thyromegaly, or JVD. No peripheral stigmata of inflammatory bowel disease or chronic liver disease on exam. No spiders on the anterior chest wall. No CVA tenderness. +T-L scoliosis. Breast & pelvic exams: API. Lungs: clear to A&P, with decreased BS at the bases B/L. Heart exam: regular rate rhythm, S1 and S2, without any murmur. Abdominal exam: normal bowel sounds, soft scaphoid belly, nontender, without guarding or rebound. No mass. No organomegaly. No fluid shift. No epigastric bruit. No pulsatile mass. Digital rectal exam: OB-positive in ER on admission 09/30/2016. *Repeat digital rectal exam by myself 10/01/2016: empty vault, contents OB- negative, no BRB, no mass, normal sphincter tone, no external hemorrhoids. No fissure. (? if melena at home 09/26/2016- not witnessed). Extremities: without C , C, or E. Stasis dermatitis changes LE B/L. +DJD. No palpable cords. No palmar erythema. No Dupuytren's contractures. Distal pulses 1+ bilaterally. DTRs 1+ bilaterally. Alert and oriented x 3. No tremor. No asterixis. Current Medications: Current Medications Sig/Zeb Start time Last Medication Dose Route Stop Time Status Admin Acetaminophen 500 MG Q6P PRN 09/30 1615 AC PO Acetaminophen/ 1 TAB Q8P PRN 09/30 1615 AC Hydrocodone Bitart PO Atorvastatin Calcium 40 MG DAILY 10/01 1000 AC 10/01 PO 0907 Bisacodyl 5 MG DAILY 10/01 1430 AC 10/01 PO 1555 Cholecalciferol 400 IU DAILY 10/01 1000 AC 10/01 PO 0907 Hydroxychloroquine 200 MG DAILY 10/01 1000 AC 10/01 Sulfate PO 0907 Oxycodone/ 1 TAB Q6P PRN 09/30 1615 AC Acetaminophen PO Pantoprazole Sodium 40 MG DAILY 09/30 1615 AC 10/01 IV 0907 Patient Medication 1 ED .STK-MED ONE 10/01 1348 DC Teaching ED 10/01 1349 Polyethylene Glycol 1 GAL ONCE ONE 10/01 2100 DC 10/01 PO 10/01 2101 2036 Prednisone 5 MG BID 10/01 1000 AC 10/01 PO 2036 Senna/Docusate Sodium 2 TAB DAILY 10/01 1430 AC 10/01 PO 1555 Sodium Chloride 1,000 ML Q10H 09/30 2350 DC 09/30 IV 10/01 0949 2355 Results Pertinent Lab Results: Laboratory Tests 10/01 10/01 0700 0000 Chemistry Sodium (137 - 145 mmol/L) 136 L Potassium (3.5 - 5.1 mmol/L) 4.1 Chloride (98 - 107 mmol/L) 100 Carbon Dioxide (22 - 30 mmol/L) 26 Anion Gap (5 - 16) 10 BUN (7 - 17 mg/dL) 10 Creatinine (0.5 - 1.0 mg/dL) 0.8 Estimated GFR (>60 ml/min) > 60 BUN/Creatinine Ratio (7 - 25 %) 12.5 Iron (37 - 170 ug/dL) 40 TIBC (265 - 497 ug/dL) 220 L Hematology CBC w Diff MAN DIFF ORDERED MAN DIFF ORDERED WBC (4.8 - 10.8 /CUMM) 2.7 L 2.3 L RBC (4.20 - 5.40 /CUMM) 2.55 L 2.47 L Hgb (12.0 - 16.0 G/DL) 7.8 L 7.6 L Hct (37 - 47 %) 24.6 L 23.8 L MCV (81.0 - 99.0 FL) 96.4 96.3 MCH (27.0 - 31.0 PG) 30.6 30.9 RDW (11.5 - 14.5 %) 23.6 H 21.9 H Plt Count (130 - 400 /CUMM) 171 195 MPV (7.4 - 10.4 FL) 8.5 8.7 Gran % (42.2 - 75.2 %) 47.9 22.4 L Lymphocytes % (20.5 - 51.1 %) 48.8 64.2 H Monocytes % (1.7 - 9.3 %) 2.8 13.4 H Eosinophils % (0 - 5 %) 0.2 0 Basophils % (0.0 - 2.0 %) 0.3 0 L Absolute Granulocytes (1.4 - 6.5 /CUMM) 1.3 L 0.5 L Segmented Neutrophils (42.2 - 75.2 %) 38 L 28 L Band Neutrophils (0.0 - 5.0 %) 2 Absolute Lymphocytes (1.2 - 3.4 /CUMM) 1.3 1.5 Lymphocytes (20.5 - 51.1 %) 56 H 68 H Monocytes (1.7 - 9.3 %) 4 4 Absolute Monocytes (0.10 - 0.60 /CUMM) 0.1 L 0.3 Absolute Eosinophils (0.0 - 0.7 /CUMM) 0 0 Absolute Basophils (0.0 - 0.2 /CUMM) 0 0 Nucleated RBCs (0.0 - 0.0 /100WBC) 2 H 4 H Platelet Estimate (ADEQUATE) VERIFIED BY SMEAR ADEQUATE Polychromasia 1+ 1+ Anisocytosis 1+ Macrocytic Cells 1+ 1+ PUBS MCHC (33.0 - 37.0 G/DL) 31.7 L 32.1 L 09/30 1341 Chemistry Sodium (137 - 145 mmol/L) 137 Potassium (3.5 - 5.1 mmol/L) 4.5 Chloride (98 - 107 mmol/L) 101 Carbon Dioxide (22 - 30 mmol/L) 25 Anion Gap (5 - 16) 10 BUN (7 - 17 mg/dL) 17 Creatinine (0.5 - 1.0 mg/dL) 0.8 Estimated GFR (>60 ml/min) > 60 BUN/Creatinine Ratio (7 - 25 %) 21.3 Glucose (65 - 99 mg/dL) 117 H Calcium (8.4 - 10.2 mg/dL) 8.4 Iron (37 - 170 ug/dL) 48 TIBC (265 - 497 ug/dL) 242 L Ferritin (11.1 - 264 ng/mL) 784.0 H Total Bilirubin (0.2 - 1.3 mg/dL) 0.4 AST (14 - 36 U/L) 24 ALT (9 - 52 U/L) 32 Alkaline Phosphatase (<127 U/L) 97 Troponin I (< 0.11 ng/ml) < 0.01 Total Protein (6.3 - 8.2 g/dL) 7.1 Albumin (3.5 - 5.0 g/dL) 3.2 L Globulin (1.9 - 4.2 gm/dL) 3.9 Albumin/Globulin Ratio (1.1 - 2.2 %) 0.8 L Vitamin B12 (239 - 931 pg/mL) 955 H Folate (2.76 - 20.0 ng/mL) > 20.0 H Coagulation PT (9.4 - 12.5 SEC) 12.1 INR (0.90 - 1.19) 1.15 Hematology CBC w Diff MAN DIFF ORDERED WBC (4.8 - 10.8 /CUMM) 2.2 L RBC (4.20 - 5.40 /CUMM) 1.49 L Hgb (12.0 - 16.0 G/DL) 4.7 *L Hct (37 - 47 %) 15.7 *L MCV (81.0 - 99.0 FL) 105.1 H MCH (27.0 - 31.0 PG) 31.3 H RDW (11.5 - 14.5 %) 25.5 H Plt Count (130 - 400 /CUMM) 223 MPV (7.4 - 10.4 FL) 7.9 Gran % (42.2 - 75.2 %) 45.0 Lymphocytes % (20.5 - 51.1 %) 41.4 Monocytes % (1.7 - 9.3 %) 13.6 H Eosinophils % (0 - 5 %) 0 Basophils % (0.0 - 2.0 %) 0 L Absolute Granulocytes (1.4 - 6.5 /CUMM) 1.0 L Segmented Neutrophils (42.2 - 75.2 %) 60 Absolute Lymphocytes (1.2 - 3.4 /CUMM) 0.9 L Lymphocytes (20.5 - 51.1 %) 35 Monocytes (1.7 - 9.3 %) 5 Absolute Monocytes (0.10 - 0.60 /CUMM) 0.3 Absolute Eosinophils (0.0 - 0.7 /CUMM) 0 Absolute Basophils (0.0 - 0.2 /CUMM) 0 Nucleated RBCs (0.0 - 0.0 /100WBC) 9 H Platelet Estimate (ADEQUATE) ADEQUATE Polychromasia 1+ Hypochromic-Microcytic 3+ Poikilocytosis 2+ Anisocytosis 2+ Macrocytic Cells 2+ Schistocytes PUBS MCHC (33.0 - 37.0 G/DL) 29.8 L Imaging/Other Studies: 09/30/2016: XR PORTABLE CHEST- 1. Chronic changes of COPD. 2. No acute findings. No convincing radiographic evidence of CHF. 3. Multiple left-sided rib fractures. 4. DJD with scoliosis of T-L spine. 5. Osteopenia. 09/30/2016: EKG- NSR @ 94, normal axis, normal intervals, occasional unifocal PVCs, ? LVH, no acute ischemic change.
[2016-10-02 08:04] LABS: ABSOLUTE BASOPHIL COUNT 0 /CUMM (0.0-0.2); ABSOLUTE EOSINOPHIL COUNT 0 /CUMM (0.0-0.7); ABSOLUTE GRANULOCYTE CT 1.1 /CUMM (1.4-6.5); ABSOLUTE LYMPH COUNT 1.1 /CUMM (1.2-3.4); ABSOLUTE MONOCYTE COUNT 0 /CUMM (0.10-0.60); BASOPHIL % 0.2 % (0.0-2.0); EOSINOPHIL % 0.6 % (0-5); GRANULOCYTE % 50.7 % (42.2-75.2); HEMATOCRIT 25.4 % (37-47); MEAN CORPUSCULAR VOLUME 96.8 FL (81.0-99.0); MEAN PLATELET VOLUME 8.2 FL (7.4-10.4); PLATELET COUNT 198 /CUMM (130-400); RBC DISTRIBUTION WIDTH 23.3 % (11.5-14.5); RED BLOOD CELL CT 2.63 /CUMM (4.20-5.40); WHITE BLOOD CELL COUNT 2.2 /CUMM (4.8-10.8)
--- NOTE | 2016-10-02 09:01 | NUR ---
PHYSICAL THERAPY: ATTEMPTED TO SEE PT THIS MORNING BEFORE SCHEDULED COLONOSCOPY. PT REPORTS THAT SHE IS NOT FEELING WELL, DIDN'T SLEEP WELL LAST NIGHT, AND WOULD LIKE TO REST AND PREP FOR HER UPCOMING PROCEDURE. WILL CANCEL TODAY'S P.T. SESSION AND FOLLOW UP TOMORROW. THANK YOU.
--- NOTE | 2016-10-02 11:44 | Patient Discharge Instructions ---
Discharge Instructions General Discharge Information You were seen/treated for: Anemia, transfused 2 units of blood Special Instructions: - Please follow up with PCP, Dr. Thompson and Dr. Bates in 1 week. - Repeat CBC in 1 week Diet Continue normal diet: Yes Activity Full Activity/No Limits: Yes Acute Coronary Syndrome Inclusion Criteria At DC or during hospital stay patient has or had the following: ACS DIAGNOSIS No Discharge Core Measures Meds if any: Prescribed or Continued at Discharge Meds if any: NOT Prescribed or Continued at Discharge Congestive Heart Failure Inclusion Criteria At DC or during hospital stay patient has or had the following: CHF DIAGNOSIS No Discharge Core Measures Meds if any: Prescribed or Continued at Discharge Meds if any: NOT Prescribed or Continued at Discharge Cerebrovascular accident Inclusion Criteria At DC or during hospital stay patient has or had the following: CVA/TIA Diagnosis No Discharge Core Measures Meds if any: Prescribed or Continued at Discharge Meds if any: NOT Prescribed or Continued at Discharge Venous thromboembolism Inclusion Criteria VTE Diagnosis No VTE Type NONE VTE Confirmed by (Test) NONE Discharge Core Measures - Per Current guidelines, there needs to be overlap - treatment for the first 5 days of Warfarin therapy. - If discharged on Warfarin prior to 5 days of - overlap therapy, the patient will need to be - assessed for post discharge needs including - *Post discharge parental anticoagulation - *Warfarin and/or parental anticoagulation education - *Follow up date to check INR post discharge At least 5 days overlap therapy as Inpatient No Meds if any: Prescribed or Continued at Discharge Note: Overlap Therapy is Warfarin and Anticoagulant Meds if any: NOT Prescribed or Continued at Discharge
--- NOTE | 2016-10-02 12:19 | Proc Note Gastroenterology ---
Gastroenterology Procedure Date of Last Colonoscopy: Never Procedure Date: 10/02/16 GI Procedure(s): Combined baseline upper endoscopy to the third portion of the duodenum with random biopsies, plus baseline colonoscopy to the terminal ileum. Land Leveler: MACKENZIE CUMMINGS MD ASA Classification: III Indications: (*Please refer to GI consult of 10/01/2016). INDX: 85-year-old female, MDS, OB positive stool, questionable history of melena [facility] (OB negative, empty vault, on my digital rectal exam of 10/01/2016). Ex-ASA 81 mg daily. On Prednisone 5 mg BID & Plqquenil for SLE. No previous EGD or colonoscopy. There is no family history of GI disease or GI malignancy except for the patient's father having had some type of "liver cancer" (non-cirrhotic, uncertain if primary vs. met, uncertain if primary GI etiology). The patient has chronic GERD on PPI, plus mild constipation. Otherwise, GI review of systems negative. Meds Received: O2-10L via NRB & MAC as per Dr. Ag & Dr. Haji, of [facility]. Patient's Tolerance: good Complications: None Extent Reached: D3/TI. Procedure: Combined baseline upper endoscopy to the third portion of the duodenum with random biopsies, plus baseline colonoscopy to the terminal ileum, were performed with the Olympus high-definition videoscopes from above and below (the pediatric videocolonoscope was used from below), after obtaining informed consent from the patient for each procedure prior to IV sedation, with the radiation monitor and pulse oximeter, after 1/2 gallon of GoLYTELY (the patient could not finish the entire gallon), with the assistance of Dr. Ag & Dr. Haji, of [facility]. Documenting photographs were obtained from above and below, and placed inside the patient's chart. The patient's false teeth were removed preoperatively. Baseline upper endoscopy to the third portion of the duodenum with random biopsies, was performed with the Olympus high definition videoendoscope, after obtaining informed consent from the patient, with the radiation monitor and pulse oximeter, with the assistance of Dr. Ag, of [facility]. A mouthpiece was placed in the usual fashion to protect the patient's residual teeth & oral cavity. The patient was placed in the left lateral decubitus position and sedated by [facility]. At this point, the endoscope was advanced through the fenestrated hole in the NRB mask, into the mouth, then into the esophagus, using direct visualization technique. The vocal cords appeared normal. The esophageal mucosa appeared normal. There were no esophageal rings, webs, lesions, strictures, or ulcers. There was no monilia or vesicles. There was no esophageal ribbing. The Z line was well demarcated at 35 cm. There was a 3 cm sliding hiatal hernia pouch, from 35-38 cm, without any Bart erosions. No significant esophageal inflammation was seen. There were no ectopic islands, nor gross Sharp's esophagus. Based on the patient's symptoms, random biopsies of normal-appearing distal esophageal mucosa were obtained: (Specimen B- 35 cm, Specimen C- 32 cm). There were no esophageal or gastric varices, nor any Dora Cameron tear. The castro of the stomach distended normally with air insufflation. Direct and retroflexed views of the stomach were performed. There was nothing endoscopically to suggest gastroparesis or portal gastropathy. The mucosa of the gastric cardia, fundus, lesser curvature, incisura, body, and antrum appeared normal, without any gastric ulcers or gastric lesions. The pylorus was patent, without any gastric outlet obstruction or channel ulcer. The duodenal bulb, duodenal sweep, and third portion of the duodenum appeared normal, without any duodenal ulcers, distal ulcerations, or angiodysplasias. I was not able to see the ampulla with the direct-viewing scope. The folds of the second and third portions of the duodenum were normal in caliber, without any flattening, nodularity, scalloping, or mosaic pattern. Nevertheless, in view of the anemia, random small bowel biopsy 4 of normal- appearing second and third portions of the duodenum were obtained: (Specimen A- rule out malabsorption and/or celiac sprue). No active upper GI bleeding was seen. The patient tolerated the procedure well. After completing the preliminary baseline upper endoscopy to the third portion of the duodenum with random biopsies, baseline colonoscopy to the terminal ileum was performed with the Olympus high-definition pediatric videocolonoscope, after obtaining informed consent from the patient, with the radiation monitor and pulse oximeter, after 1/2 gallon of Zoey, with the assistance of Dr. Haji, of [facility]. The prep was good. The patient was in the left lateral decubitus position for the initial portion of the procedure, then was switched to the supine position, in order to inspect the right colon, cecum, and terminal ileum. Direct views of the rectum failed to reveal any external hemorrhoids, fissures, or perianal disease. Digital rectal exam was unremarkable, without any masses. Sphincter tone was normal. Retroflexion in the rectum failed to reveal any internal hemorrhoids, gross proctitis, rectal ulcers, or rectal lesions. The colonic mucosa was carefully inspected, both upon insertion and upon withdrawal of the colonoscope. Withdrawal time was exceedingly adequate. No definite diverticula were seen, although the patient's lumen was extremely tortuous and redundant, especially the proximal colon. The patient was repositioned, as above. There were no strictures. The cecum, base of the appendix, and ileocecal valve were all identified. The last few centimeters of the terminal ileum were entered, and appeared normal. Confirmatory photographs were obtained. The colonic mucosa appeared intact and within normal limits to the terminal ileum, without any polyps, lesions, gross colitis, ileitis, or angiodysplasias. No active lower GI bleeding was seen. The patient tolerated both procedures well. Impression: 1. Random small bowel biopsy 4 of normal-appearing second and third portions of the duodenum: (Specimen A- rule out malabsorption and/or celiac sprue). 2. 3 cm sliding hiatal hernia pouch from 35-38 cm, without any Bart erosions. 3. Random biopsies of normal-appearing distal esophageal mucosa: (Specimen B- 35 cm, Specimen C- 32 cm). 4. Normal colonic mucosa to the terminal ileum. 5. Tortuous colonic lumen, without any definite diverticula. 6. *No active upper or lower GI bleeding seen. Recommendations: Await random biopsies of duodenum and esophagus. The patient was advised to contact my office for the pathology results within 2 weeks. She was previously given my office number. Continue antireflux measures. Continue PPI daily (can switch patient to p.o. route). Regular diet as tolerated. Based on patient's advanced age, no indication for follow-up surveillance colonoscopy. Continue Dulcolax and Senna. Continue Plaquenil and Prednisone for SLE, as per medical team. Will defer to medical team regarding resumption of baby aspirin 81 mg daily (no history of ASHD or CVA). Pelvic exam API. Follow-up with hematology for Darbepoietin. Consideration for CT AP depending on clinical course, to rule out retroperitoneal bleed (doubt). Check CBC daily for now. T&C 4u PRBC. Keep Hgb > 7 (no history of ASHD). *Consideration for outpatient PillCam, for full workup of intermittent OB positive stools, if patient allows (the risks & benefits of this were discussed with the patient, including the need for retrieval of the PillCam if it gets obstructed, as it contains a battery). The above findings and recommendations were discussed with the patient postoperatively, as well as with Dr. Lopez. *Further inpatient GI follow up as needed. ADDENDUM: 10/03/2016- A. D2/D3, RANDOM BIOPSY X 4: UNREMARKABLE DUODENAL MUCOSA. NEGATIVE FOR SIGNIFICANT BLUNTING OF VILLI. B. ESOPHAGUS AT 35 CM, RANDOM BIOPSY: BENIGN ESOPHAGEAL MUCOSA. NEGATIVE FOR SIGNIFICANT NUMBER OF EOSINOPHILS. C. ESOPHAGUS AT 32 CM, RANDOM BIOPSY: BENIGN ESOPHAGEAL MUCOSA. NEGATIVE FOR SIGNIFICANT NUMBER OF EOSINOPHILS. Dictated by: KEM RAYMOND MD The pt was D/C to home on 10/03/2016. Hx MDS with superimposed OB+ stool. 10/02/2016: WBC 2.2, H/H 8.1/25.4, nl MCV, PLT 198. Random bxs D2/D3- normal villi. Random esophageal bxs at 35 & 32 cm- normal. I called the pt 10/03/2016 at 9:17 p.m. at [phone] & left a message regarding the negative random bxs. I then called the pt's dtr, Rosalinda Helton, at [phone] & left a similar message. Continue antireflux measures. Continue po PPI daily. Regular diet as tolerated. Based on patient's advanced age, no indication for follow-up surveillance colonoscopy. Continue Dulcolax and Senna. Continue Plaquenil and Prednisone for SLE, as per medical team. Will defer to medical team regarding resumption of baby aspirin 81 mg daily (no history of ASHD or CVA). Pelvic exam API. Follow-up with hematology for Darbepoietin (hx MDS). Consideration for CT AP depending on clinical course, to rule out retroperitoneal bleed (doubt). Keep Hgb > 7 (no history of ASHD). *Consideration for outpatient PillCam, for full workup of intermittent OB positive stools, if patient allows (the risks & benefits of this were discussed with the patient, including the need for retrieval of the PillCam if it gets obstructed, as it contains a battery). * Await pt decision. Follow-up Colonscopy Screening not indicated in view of patient's advanced age CC: KRISHNA PROCTOR,MARIO; MARYAM PROCTOR,JIN Bain; DWIGHT PROCTOR,JESSE Cox; NANCY PROCTOR,MACKENZIE Saunders
--- NOTE | 2016-10-02 13:26 | NUR ---
PHYSICAL THERAPY: Pt REFUSED PTX2 TODAY. SHE REPORTED TO THERAPISTS THAT SHE IS TOO TIRED AND IS LEAVING FLOOR FOR COLONOSCOPY. DESPITE IT BEING 3 HRS AWAY, SHE STILL REFUSED. WILL CHECK BACK ABLE.
[2016-10-02 15:03] VITALS: BP 142/60
[2016-10-03 06:38] VITALS: BP 122/62
--- NOTE | 2016-10-03 06:41 | PN- Oncology ---
Subjective Subjective: Offers no specific complaints, no complaints regarding endoscopy Review of Systems: 12 point review of systems negative Objective Vital Signs and I&Os Vital Signs Date Time Temp Pulse Resp B/P B/P Pulse O2 O2 Flow FiO2 Mean Ox Delivery Rate 10/03 0638 97.4 53 18 122/62 97 Room Air 10/02 2230 99.3 10/026 102.7 10/02 1600 Nasal 1.0L Cannula 10/02 1503 97.4 68 20 142/60 94 10/02 0800 95 Nasal 1.0L Cannula 10/02 0657 98.0 68 18 110/64 95 Nasal Cannula Intake & Output 10/03 0800 10/03 0000 10/02 1600 10/02 0800 10/02 0000 10/01 1600 Intake Total 120 500 900 Output Total 700 400 Balance -580 -400 500 900 Intake, IV 500 400 Intake, Oral 120 500 Number 1 2 1 Bowel Movements Output, Urine 700 400 Patient 94 lb 0.01 oz Weight Gen.: in NAD ENT: Sclera anicteric Chest: Normal respiratory effort, clear breath sounds Cor: RRR, no extra sounds Abdomen: Soft, bowel sounds present, no tenderness, no rebound Extremities: Without clubbing, cyanosis, or edema Neurology: Alert and oriented 3, no gross deficit Current Medications: Current Medications Sig/Zeb Start time Last Medication Dose Route Stop Time Status Admin Acetaminophen 500 MG .STK-MED ONE 10/02 2224 DC PO 10/02 222 Acetaminophen 500 MG Q6P PRN 09/30 1615 AC 10/02 PO 2226 Acetaminophen/ 1 TAB Q8P PRN 09/30 1615 AC Hydrocodone Bitart PO Aspirin Buffered 81 MG DAILY 10/02 1527 AC 10/02 PO 1730 Atorvastatin Calcium 40 MG DAILY 10/01 1000 AC 10/01 PO 0907 Bisacodyl 5 MG DAILY 10/01 1430 AC 10/01 PO 1555 Chlorhexidine 1 GM .STK-MED ONE 10/02 1331 DC Gluconate TOP 10/02 1332 Cholecalciferol 400 IU DAILY 10/01 1000 AC 10/01 PO 0907 Hydroxychloroquine 200 MG DAILY 10/01 1000 AC 10/01 Sulfate PO 0907 Omeprazole 20 MG DAILY AC 10/03 0700 AC PO Oxycodone/ 1 TAB Q6P PRN 09/30 1615 AC Acetaminophen PO Pantoprazole Sodium 40 MG DAILY 09/30 1615 DC 10/02 IV 0951 Prednisone 5 MG BID 10/01 1000 AC 10/02 PO 2059 Senna/Docusate Sodium 2 TAB DAILY 10/01 1430 AC 10/01 PO 1555 Results Last 24 Hours of Lab Results: Laboratory Tests 10/02 1700 Hematology CBC w Diff Cancelled WBC Cancelled RBC Cancelled Hgb Cancelled Hct Cancelled MCV Cancelled MCH Cancelled RDW Cancelled Plt Count Cancelled MPV Cancelled PUBS MCHC Cancelled Assessment/Plan Assessment/Recommendations: 1. MDS-stable counts 2. GI bleeding-no active bleeding discovered on endoscopies Await biopsies Question need for PillCam Follow-up my office
--- NOTE | 2016-10-03 06:57 | PN- Housestaff ---
Subjective Follow-up For: anemia Subjective: patient feels well this morning, she was sitting up in bed eating breakfast. she has tolerated food well except feeling gassy. she feels ready to go home. will get repeat pt evaluation for discharge disposition. informed the nurse to wean down her oxygen as tolerated and likely discharge today. Review of Systems Constitutional: Reports: see HPI. Objective Last 24 Hrs of Vital Signs/I&O Vital Signs Date Time Temp Pulse Resp B/P B/P Pulse O2 O2 Flow FiO2 Mean Ox Delivery Rate 10/03 0638 97.4 53 18 122/62 97 Room Air 10/02 2230 99.3 10/02 2225 102.7 10/02 1600 Nasal 1.0L Cannula 10/02 1503 97.4 68 20 142/60 94 10/02 0800 95 Nasal 1.0L Cannula Intake & Output 10/03 0800 10/03 0000 10/02 1600 Intake Total 120 Output Total 700 400 Balance -580 -400 Intake, Oral 120 Number 1 Bowel Movements Output, Urine 700 400 Patient 42.638 kg Weight Physical Exam General Appearance: Alert, Oriented X3, Cooperative, No Acute Distress HEENT: Atraumatic Cardiovascular: Regular Rate, Normal S1, Normal S2 Lungs: Clear to Auscultation, Normal Air Movement Abdomen: Normal Bowel Sounds, Soft, No Tenderness Extremities: No Edema Current Medications: Current Medications Sig/Zeb Start time Last Medication Dose Route Stop Time Status Admin Acetaminophen 500 MG .STK-MED ONE 10/02 2224 DC PO 10/02 2225 Acetaminophen 500 MG Q6P PRN 09/30 1615 AC 10/02 PO 2226 Acetaminophen/ 1 TAB Q8P PRN 09/30 1615 AC Hydrocodone Bitart PO Aspirin Buffered 81 MG DAILY 10/02 1527 AC 10/02 PO 1730 Atorvastatin Calcium 40 MG DAILY 10/01 1000 AC 10/01 PO 0907 Bisacodyl 5 MG DAILY 10/01 1430 AC 10/01 PO 1555 Chlorhexidine 1 GM .STK-MED ONE 10/02 1331 DC Gluconate TOP 10/02 1332 Cholecalciferol 400 IU DAILY 10/01 1000 AC 10/01 PO 0907 Hydroxychloroquine 200 MG DAILY 10/01 1000 AC 10/01 Sulfate PO 0907 Omeprazole 20 MG DAILY AC 10/03 0700 AC 10/03 PO 0644 Oxycodone/ 1 TAB Q6P PRN 09/30 1615 AC Acetaminophen PO Pantoprazole Sodium 40 MG DAILY 09/30 1615 DC 10/02 IV 0951 Prednisone 5 MG BID 10/01 1000 AC 10/02 PO 2058 Senna/Docusate Sodium 2 TAB DAILY 10/01 1430 AC 10/01 PO 1555 Assessment/Plan Assessment: 85/F who was admitted before because of low H&H. She had a history of multiple blood transfusion due to MDS. She was diagnosed last year with SLE and now on hydroxychloroquine and prednisone 5 mg twice a day. Patient reported multiple large dark stool on Saturday just prior to her symptom. 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 She is taking aspirin and prednisone, this increases her chance of getting GI ulcers and bleed. Patient was found to be guaiac-positive in the ED. 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 On admission hemoglobin was 4.7. Consent for blood transfusion was obtained in the ED. patient received 2 packed blood transfusion after which her hemoglobin being increased to 7.4, and stable at 8.1. - Endoscopy/colonoscopy showed no active bleeds. Biopsies obtained. * Plan for discharge f/u with PCP, Dr. Thompson, Dr. Bates, and CBC in 1 week. * We'll continue omeprazole , continue aspirin * We will follow GI recommendation, f/u with Dr. Bates for biopsy f/u * We will follow Dr. Gibbons oncologist recommendation # Hyperlipidemia/hypertension/SLE * Continue statin * Continue hydroxychloroquine * Hold all antihypertensive medication # Increase oxygen demand * We will try to wean patient off oxygen Heart healthy DVT prophylaxis Alps only DNR/DNI Problem List: 1. Anemia Pain Ratin Pain Location: none Pain Goal: Remain pain free Pain Plan: none Tomorrow's Labs & Rationales: none DVT/Prophylaxis: mechanical
--- NOTE | 2016-10-03 10:45 | Discharge Summary ---
Visit Information Visit Dates Admission Date: 09/30/16 Discharge Date: 10/03/16 Hospital Course Course Attending Physician: MARIO KELLER MD Primary Care Physician: JIN FRANCISCO MD Hospital Course: with PMHx HTN, HLD, SLE on Hydroxychloroquine, MDS diagnosed with BM biopsy in January 2016, on darbepoetin every 2 weeks, presented to the [facility] ED complaining of exertional dyspnea, palpitation, and generalized weakness, after multiple episodes of semi-formed, large and dark bowel movements. Her H/H on admission was found to be 4.7/15.7, while her H/H 10 days prior to admission was reportedly above target. She received 2 units of PRBC transfusions and h/h improved to 8.1/25.4. She reports improvement in symptoms and was cleared to go home without services by PT. Combined baseline upper endoscopy to the third portion of the duodenum with random biopsies, plus baseline colonoscopy to the terminal ileum was performed on 10/02/[address] Bates, with the following impressions: 1. Random small bowel biopsy 4 of normal-appearing second and third portions of the duodenum: (Specimen A- rule out malabsorption and/or celiac sprue). 2. 3 cm sliding hiatal hernia pouch from 35-38 cm, without any Bart erosions. 3. Random biopsies of normal-appearing distal esophageal mucosa: (Specimen B- 35 cm, SpecimenC- 32 cm). 4. Normal colonic mucosa to the terminal ileum. 5. Tortuous colonic lumen, without any definite diverticula. 6. *No active upper or lower GI bleeding seen. Pt will follow up with Dr. Bates for biopsy results, Dr. Thompson for repeat CBC in 1 week, and PCP. Allergies: Coded Allergies: NO KNOWN ALLERGIES (06/06/15) Disposition Summary Disposition Principal Diagnosis: Anemia most likely due to myelodysplastic syndrome Additional Diagnosis: SLE Discharge Disposition: home or self care Discharge Instructions General Discharge Information Code Status: Do Not Resucitate/Intubat Patient's Diet: Heart healthy Patient's Activity: As tolerated Follow-Up Instructions/Appts: You were seen/treated for: Anemia, transfused 2 units of blood Special Instructions: - Please follow up with PCP, Dr. Thompson and Dr. Bates in 1 week. - Repeat CBC in 1 week Medications at Discharge Discharge Medications: Continue taking these medications: Atorvastatin Calcium (Lipitor) 40 MG TABLET 1 Tablet ORAL DAILY Omeprazole (Prilosec) 20 MG CAPSULE.DR 1 Capsule ORAL DAILY Potassium Chloride (Potassium Chloride) 10 MEQ TABLET.ER 2 Tablet ORAL TWICE DAILY Qty = 120 Hydroxychloroquine Sulfate (Hydroxychloroquine Sulfate) 200 MG TABLET 1 Tablet ORAL Every Day Qty = 60 Comments: Last Taken: 10/03/16 Time: 8 AM Prednisone (Prednisone) 5 MG TABLET 1 Tablet ORAL TWICE DAILY Qty = 100 Comments: Last Taken: 10/03/16 Time: 8 AM Cholecalciferol (Vitamin D3) (Vitamin D3) 400 UNIT TABLET 1 Tablet ORAL DAILY Comments: Last Taken: 10/03/16 Time: 8 AM Aspirin (Ecotrin*) 81 MG TABLET.DR 1 Tablet ORAL DAILY Comments: Last Taken: 10/03/16 Time: 8 AM Copies To: EMILIANO PROCTOR,MACKENZIE Perez; MARYAM PROCTOR,JIN Bain; NANCY PROCTOR,MACKENZIE Saunders Attending MD Review Statement Documenting Attending: KRISHNA PROCTOR,MARIO
== END 2016-10-03 11:42 | disposition home health service (06) | DRG 812 ==
LOC: ERH 11:22 → 2NA 14:48 → ERHI 14:48 → ENRESERV 16:08 → 2NA 16:36 → ENPENDDIS 10-03 10:55 → 2NA 10-03 11:42
PROVIDERS: Physician Assistant; Student in an Organized Health Care Education/Training Program; ADMIT Internal Medicine
PROC: 0DJD8ZZ Inspection of Lower Intestinal Tract, Via Natural or Artificial Opening Endoscopic (ICD-10-PCS; 2016-09-30)
PROC: 0DB98ZX Excision of Duodenum, Via Natural or Artificial Opening Endoscopic, Diagnostic (ICD-10-PCS; principal; 2016-10-02)
PROC: 0DB58ZX Excision of Esophagus, Via Natural or Artificial Opening Endoscopic, Diagnostic (ICD-10-PCS; principal; 2016-10-02)
PROC: 0DJD8ZZ Inspection of Lower Intestinal Tract, Via Natural or Artificial Opening Endoscopic (ICD-10-PCS; principal; 2016-10-02)
DX: D46.9 Myelodysplastic syndrome, unspecified (principal); M32.9 Systemic lupus erythematosus, unspecified; I10 Essential (primary) hypertension; F17.200 Nicotine dependence, unspecified, uncomplicated
CPT/HCPCS: 2NASP; 36415; 82436; 86920; 88305; 93005; 93010; 97116-GO; 97161-GP; 97530-GO; 99291; J7512; P9016

== ENCOUNTER 2017-07-02 10:30 | Inpatient (IN) | payer OTHER, MEDICARE ==
[~2017-07-02] VITALS: Ht 147.3 cm; Wt 42.6 kg
[~2017-07-02 10:30] MED LIST changes: +ASPIRIN EC81 M1 PO; -ATORVASTATIN CA40 MG PO; +HYDROXYCHLOROQ200 M2 PO; +LIPITOR40 M1 PO; -POTASSIUM CHLO10 ME1 PO; +POTASSIUM CHLO10 ME4 PO; +PREDNISONE5 M1 PO; -PRILOSEC 20MG C20 MG PO; +PRILOSEC OTC20 M1 PO; +VITAMIN D3400 UNI1 PO
--- NOTE | 2017-07-02 11:06 | ED GI/GU/ABDOMINAL COMPLAINT ---
History of Present Illness General Chief Complaint: General Adult Stated Complaint: SIB FOR BLACK STOOL Source: patient Exam Limitations: no limitations Vital Signs & Intake/Output Vital Signs & Intake/Output Vital Signs Date Time Temp Pulse Resp B/P B/P Pulse O2 O2 Flow FiO2 Mean Ox Delivery Rate 07/02 1249 98.1 72 16 122/59 93 Room Air 07/02 1048 97.5 67 20 137/63 93 Room Air Allergies Coded Allergies: NO KNOWN ALLERGIES (06/06/15) Reconcile Medications Aspirin (Ecotrin*) 81 MG TABLET.DR 1 TAB PO DAILY HEART HEALTH (Reported) Atorvastatin Calcium (Lipitor) 40 MG TABLET 1 TAB PO DAILY CHOLESTEROL ( Reported) Cholecalciferol (Vitamin D3) (Vitamin D3) 400 UNIT TABLET 1 TAB PO DAILY SUPPLEMENT (Reported) Hydroxychloroquine Sulfate 200 MG TABLET 1 TAB PO DAILY LUPUS (Reported) Omeprazole Magnesium (Prilosec Otc) 20 MG TABLET.DR 1 TAB PO DAILY GI ( Reported) Potassium Chloride 10 MEQ TABLET.ER 2 TAB PO BID SUPPLEMENT (Reported) Prednisone 5 MG TABLET 1 TAB PO BID LUPUS (Reported) Triage Note: SIB DR CRUZ FOR BLACK TARRY STOOLS X 1 WEEK. PT WITH HX MYLEODYSPLASIA. PER DR CRUZ, PT HCT WENT FROM 26 TO 20. Triage Nurses Notes Reviewed? yes LMP (ages 10-50): post menopausal, unknown ? N Is pt currently ? No Onset: Abrupt Duration: week(s): (1), continues in ED Timing: single episode today Activities at Onset: BOWEL MOVEMENTS Prior Abdominal Problems: none Past Sexual History: Unobtainable at this time No Modifying Factors: none Associated Symptoms: weakness, FATIGUE HPI: 86-year-old female past medical history of myelodysplasia, anemia, COPD, hypertension, remembers evaluation of black stools. Patient states that over the past week she has had aN episode of black tarry stool every day. Last time was this morning. She does not take blood thinners other than aspirin. She reports associated lightheadedness fatigue and weakness. She does have a previous history of symptomatically anemia. She does not take any NSAIDs currently. No abdominal pain chest pain shortness of breath bright red blood per rectum vaginal bleeding GERD. She does not take iron. She had a colonoscopy back in September 2016 when she presented for symptom medical anemia. She was seen by Dr. Gibbons who did blood work and noted that her crit dropped from 26-20. SHe has needed transfusions in the past. (Shorty Giron) Past History Travel History Traveled to [place] past 21 day No Medical History Any Pertinent Medical History? see below for history Neurological: NONE EENT: NONE Cardiovascular: hypertension, hyperlipidemia Respiratory: COPD Gastrointestinal: GERD (dependent on OTC Prilosec xyrs) Hepatic: NONE Renal: urinary incontinence Musculoskeletal: degen joint disease, falls, SLE Psychiatric: NONE Endocrine: NONE, osteopenia Blood Disorders: anemia, MYELODYSPLASIA Cancer(s): NONE RECORD LABEL INTERNSHIP/Reproductive: NONE History of MRSA: No History of VRE: No History of CDIFF: No Surgical History Surgical History: SKIN GRAFT RIGHT LEG POST FALL Psychosocial History Who do you live with Significant Other Services at Home None What is your primary language Latvian Tobacco Use: Never used ETOH Use: denies use Illicit Drug Use: denies illicit drug use Family History Family History, If Any: FATHER (Hx "liver ca" (? if primary vs. met); non-cirrhotic.). , Age 60+ ; Cause: Postoperative complication. MOTHER, , Age 60+; Cause: Unknown cause of morbidity or mortality. SON, , Age 30-40; Cause: MVA (motor vehicle accident). Hx Contributory? No (Shorty Giron) Review of Systems Review of Systems Constitutional: Reports: malaise, weakness. EENTM: Reports: no symptoms. Respiratory: Reports: no symptoms. Cardiovascular: Reports: no symptoms. GI: Reports: melena, changes in stool. Genitourinary: Reports: no symptoms. Musculoskeletal: Reports: no symptoms. Skin: Reports: no symptoms. Neurological/Psychological: Reports: see HPI (FATIGUE, WEAK). Hematologic/Endocrine: Reports: no symptoms. Immunologic/Allergic: Reports: no symptoms. All Other Systems: Reviewed and Negative (Shorty Giron) Physical Exam Physical Exam General Appearance: well developed/nourished, no apparent distress, alert, awake , thin Head: atraumatic, normal appearance Eyes: Bilateral: PERRL, EOMI, other (PALE CONJUNCTIVA). Ears, Nose, Throat, Mouth: hearing grossly normal, moist mucous membrane Neck: normal inspection, supple, full range of motion Respiratory: normal breath sounds, chest non-tender, no respiratory distress, lungs clear Cardiovascular: regular rate/rhythm, normal peripheral pulses Peripheral Pulses: 2+ radial (R), 2+ radial (L) Gastrointestinal: normal bowel sounds, soft, non-tender, no organomegaly Rectal: normal inspection, normal rectal tone, THERE IS NO STOOL IN THE RECTAL VAULT. rECTAL SECRETIONS HEME-NEGATIVE Back: normal inspection, normal range of motion, no vertebral tenderness Extremities: normal range of motion Neurologic/Psych: no motor/sensory deficits, awake, alert, oriented x 3 Core Measures ACS in differential dx? No Sepsis Present: No Sepsis Focused Exam Completed? No (Stephane BILLS,Shorty) Progress Differential Diagnosis: diverticulitis, gastritis, hemorrhoids, Dora-Carlos Eduardo tear, peptic ulcer, PUD/GERD, perforated viscous, SYMPTOMATIC ANEMIA, UPPER gi BLEED, LOWER gi BLEED, COLON CANCER Plan of Care: Orders Procedure Date/time Status Regular Diet 07/02 D Active URINALYSIS 07/02 1237 Active BLOOD PRODUCT PICKUP 07/02 1231 Active Patient Data 07/02 1221 Active OXYGEN SETUP (GEN) 07/02 1204 Active Saline Lock 07/02 1204 Active Admit to inpatient 07/02 1204 Active Vital Signs 07/02 1204 Active Activity/Ambulation 07/02 1204 Active Code Status 07/02 1204 Active LEUKOCYTE POOR (PACKED CELLS) 07/02 1202 Active Intake & Output 07/02 1131 Active TROPONIN LEVEL 07/02 1120 Complete EKG 07/02 1056 Active MISTAKE 07/02 1055 Active PARTIAL THROMBOPLASTIN TIME 07/02 1032 Complete PROTHROMBIN TIME 07/02 1032 Complete COMPREHENSIVE METABOLIC PANEL 07/02 1032 Complete CBC WITHOUT DIFFERENTIAL 07/02 1032 Complete TYPE & SCREEN (NOT X-MATCH) 07/02 1032 Active Laboratory Tests 07/02/17 1120: Anion Gap 16, Estimated GFR > 60, BUN/Creatinine Ratio 28.8 H, Glucose 90, Calcium 9.0, Total Bilirubin 0.5, AST 37 H, ALT 28, Alkaline Phosphatase 97, Troponin I < 0.01, Total Protein 8.7 H, Albumin 3.6, Globulin 5.1 H, Albumin/ Globulin Ratio 0.7 L, PT 12.7 H, INR 1.21 H, APTT 25, CBC w Diff MAN DIFF ORDERED, RBC 2.09 L, MCV 104.7 H, MCH 30.0, RDW 18.5 H, MPV 8.8, Segmented Neutrophils 40 L, Band Neutrophils 2, Lymphocytes 48, Monocytes 10 H, Nucleated RBCs 1 H, Platelet Estimate VERIFIED BY SMEAR, Polychromasia 1+, Anisocytosis 1+, Macrocytic Cells 2+, PUBS MCHC 28.7 L 07/02/171055: Troponin I Cancelled Patient seen and evaluated. She has a history of myelodysplastic syndrome and symptomatically anemia. She was seen here back in September 2016 for similar symptoms. She reports black tarry stools currently wishes for GI bleed. The Hemoccult test currently is negative. There is no stool in the rectal vault. Her hemoglobin is 6.3 down from 8.1 in September 2016. She is not orthostatic. Vital signs are stable. She is symptomatically reporting weakness fatigue and lightheadedness. Spoke with Dr. Davis from she is aware and will see the patient. She recommends transfusion protonIX. TRANSfusion consent form signed 2 units packed red blood cells ordered. Patient be admitted to the hospital for further evaluation and treatment. Case discussed with Dr. Leach he agrees. Diagnostic Imaging: Viewed by Me: Radiology Read. Discussed w/RAD: Radiology Read. Radiology Impression: PATIENT: GRUPO HOANG PRESENT AGE : 86 PATIENT ACCOUNT NO: [id number] : 29 LOCATION: [facility] [place] ORDERING PHYSICIAN: Shorty BILLS SERVICE DATE: 07/02/17 EXAM TYPE: RAD - XRY- PORTABLE CHEST XRAY EXAMINATION: XR PORTABLE CHEST CLINICAL INFORMATION: Presumptive diagnosis, CHF. Signs and symptoms, GI bleeding. COMPARISON: Chest x -ray dated 10/14/2015. TECHNIQUE: Portable frontal view of the chest was obtained. FINDINGS: There is mild prominence of the central pulmonary vasculature suggestive of pulmonary vascular congestion but without evidence of dimitris pulmonary edema. The cardiac silhouette is probably within normal limits. No pleural effusion is noted. There is no evidence of pneumothorax. Bony remodeling of multiple of the lateral left ribs is consistent with old healed rib fractures, progressive by comparison with the previous study. IMPRESSION: Pulmonary vascular congestion without dimitris pulmonary edema. No pleural effusions are present. DICTATED BY: Manju Riley MD DATE/TIME DICTATED:1116 AUTOMOBILE TIRE BUILDER:CHUY DATE/TIME TRANSCRIBED:07/02/171116 CONFIDENTIAL, DO NOT COPY WITHOUT APPROPRIATE AUTHORIZATION. Initial ED EKG: normal sinus rhythm, no ST T wave changes (Shorty Giron) Departure Departure Disposition: STILL A PATIENT Condition: Stable Clinical Impression Primary Impression: Symptomatic anemia Referrals: Lauryn PROCTOR,Rio Bain (PCP/Family) Departure Forms: Customer Survey General Discharge Information Admission Note Spoke With: Bere Marsh MD Documentation of Exam: Documentation of any treatments & extenuating circumstances including Concerns Regarding Discharge (functional status, medication knowledge or non-compliance, living conditions, etc.) that warrant an admission rather than observation: [GI consult, hematology consult, transfusion, serial hemoglobinS, colonoscopy, IV Protonix, monitoring of vital signs] (Shorty Giron) PA/CONTRACTS ANALYST Co-Sign Statement Statement: ED Attending supervision documentation- x I saw and evaluated the patient. I have also reviewed all the pertinent lab results and diagnostic results. I agree with the findings and the plan of care as documented in the PA's/CONTRACTS ANALYST's documentation. Black stools, pallor, weakness hct below baseline. [] I have reviewed the ED Record and agree with the PA's/CONTRACTS ANALYST's documentation. [] Additions or exceptions (if any) to the PAs/CONTRACTS ANALYST's note and plan are summarized below: [] (Gracy PROCTOR,Octavio)
--- NOTE | 2017-07-02 11:23 | RADIOLOGY REPORT ---
EXAMINATION: XR PORTABLE CHEST CLINICAL INFORMATION: Presumptive diagnosis, CHF. Signs and symptoms, GI bleeding. COMPARISON: Chest x-ray dated 10/14/2015. TECHNIQUE: Portable frontal view of the chest was obtained. FINDINGS: There is mild prominence of the central pulmonary vasculature suggestive of pulmonary vascular congestion but without evidence of dimitris pulmonary edema. The cardiac silhouette is probably within normal limits. No pleural effusion is noted. There is no evidence of pneumothorax. Bony remodeling of multiple of the lateral left ribs is consistent with old healed rib fractures, progressive by comparison with the previous study. IMPRESSION: Pulmonary vascular congestion without dimitris pulmonary edema. No pleural effusions are present.
[2017-07-02 11:38] LABS: PLATELET COUNT 189 /CUMM (130-400); WHITE BLOOD CELL COUNT 3.2 /CUMM (4.8-10.8)
[2017-07-02 11:45] LABS: HEMATOCRIT 21.9 % (37-47); MEAN CORPUSCULAR HGB CONC 28.7 G/DL (33.0-37.0); MEAN CORPUSCULAR VOLUME 104.7 FL (81.0-99.0); MEAN PLATELET VOLUME 8.8 FL (7.4-10.4); RBC DISTRIBUTION WIDTH 18.5 % (11.5-14.5); RED BLOOD CELL CT 2.09 /CUMM (4.20-5.40)
[2017-07-02 11:47] LABS: PT 12.7 SEC (9.4-12.5); PTT 25 SEC (25-37)
--- NOTE | 2017-07-02 13:33 | Cons- Gastroenterology ---
General Information and HPI Consulting Request Date of Consult: 07/02/17 Requested By: Darvin PROCTOR,Steph Reason for Consult: 1. Melena 2. Anemia 3. Acute Drop in Hemoglobin/Hematocrit Source of Information: patient, Electronic Medical Records Exam Limitations: no limitations History of Present Illness: Patient is an 86-year-old female with past medical history of biopsy-proven myelodysplastic syndrome for which she sees Dr. Thompson. She has a past medical history of acute blood loss anemia with melena and has been seen in the past by Dr. Bates. In September of 2016 she was admitted with a chief complaint of melena and hemoccult positive stool. At that time her H/H had dropped to 20. At discharge on 10/02 her H/H was 8.1/25.4. On admission today she has an H/H of 6/3/21.9 with WBC of 3.2 and platelets of 189,000. Her MCV was 104.7 with an RDW of 18.5. BUN/Cr was 23/0.8. In September iron studies were obtained that showed an iron of 40 and ferritin of 784. She also had a normal B12 and folate. She underwent EGD and Colonoscopy which showed a hiatal hernia and a normal colon and terminal ileum. Biopsies were obtained from the esophagus and from the small bowel to rule out underlying inflammatory changes as well as Celiac Disease all of which were unrevealing. A consultation by Dr. Thompson at that time remarked that she had been started on prednisone by her celery wrapper for her systemic lupus erythematosus which had helped to stabilize an ongoing chronic hemolysis. Ms. Aguirre presents today with a chief complaint of daily melenic stools over the past week. She does not take any anticoagulants. Although she does take ASA 81 mg daily. She reports that the stool was "black as night." However, her stools were not loose, tarry or foul-smelling. She has had no dysphagia, odynophagia, nausea, vomiting, or abdominal pain. She has had no weight loss. She moves her bowels normally. She has a history of popliteal hematoma requiring transfusion but has nothad any falls and no joint swelling or pain. She has no unusual bruising. She does report feeling weak and fatigued. Allergies/Medications Allergies: Coded Allergies: NO KNOWN ALLERGIES (06/06/15) Home Med List: Aspirin (Ecotrin*) 81 MG TABLET.DR 1 TAB PO DAILY HEART HEALTH (Reported) Atorvastatin Calcium (Lipitor) 40 MG TABLET 1 TAB PO DAILY CHOLESTEROL ( Reported) Cholecalciferol (Vitamin D3) (Vitamin D3) 400 UNIT TABLET 1 TAB PO DAILY SUPPLEMENT (Reported) Hydroxychloroquine Sulfate 200 MG TABLET 1 TAB PO DAILY LUPUS (Reported) Omeprazole Magnesium (Prilosec Otc) 20 MG TABLET.DR 1 TAB PO DAILY GI ( Reported) Potassium Chloride 10 MEQ TABLET.ER 2 TAB PO BID SUPPLEMENT (Reported) Prednisone 5 MG TABLET 1 TAB PO BID LUPUS (Reported) Current Medications: Current Medications Sig/Zeb Start time Last Medication Dose Route Stop Time Status Admin Pantoprazole Sodium 0 .STK-MED ONE 07/02 1226 DC IV Pantoprazole Sodium 40 MG ONCE ONE 07/02 1215 DC 07/02 IV 07/02 1216 1222 Past History Travel History Traveled to [place] past 21 day No Medical History Neurological: NONE EENT: NONE Cardiovascular: hypertension, hyperlipidemia Respiratory: COPD Gastrointestinal: GERD (dependent on OTC Prilosec xyrs) Hepatic: NONE Renal: urinary incontinence Musculoskeletal: degen joint disease, falls, SLE Psychiatric: NONE Endocrine: NONE, osteopenia Blood Disorders: anemia, MYELODYSPLASIA Cancer(s): NONE 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 if primary vs. met); non-cirrhotic.). , Age 60+ ; Cause: Postoperative complication. MOTHER, , Age 60+; Cause: Unknown cause of morbidity or mortality. SON, , Age 30-40; Cause: MVA (motor vehicle accident). Psychosocial History Who Do You Live With? spouse (in law apt next to dtr), self Services at Home: None Primary Language: Kazakh ETOH Use: denies use Illicit Drug Use: denies illicit drug use Living Will? no Power of [employer] Assembler/HCP? no Functional Ability ADLs Independent: dressing, eating, toileting, bathing. Ambulation: cane IADLs Independent: shopping, housework, finances, food prep, telephone, transportation , medication admin. Review of Systems Review of Systems Constitutional: Reports: malaise, weakness. EENTM: Denies: no symptoms. Cardiovascular: Denies: no symptoms. Respiratory: Denies: no symptoms. GI: Reports: see HPI, melena. Genitourinary: Denies: no symptoms. Musculoskeletal: Reports: joint pain. Skin: Denies: no symptoms. Neurological/Psychological: Denies: no symptoms. Hematologic/Endocrine: Reports: bruising. Exam & Diagnostic Data Vital Signs and I&O Vital Signs Date Time Temp Pulse Resp B/P B/P Pulse O2 O2 Flow FiO2 Mean Ox Delivery Rate 07/02 1249 98.1 72 16 122/59 93 Room Air 07/02 1048 97.5 67 20 137/63 93 Room Air Intake & Output 07/02 1600 07/02 0400 07/01 1600 07/01 0400 06/30 1600 06/30 0400 Intake Total 0 Output Total Balance 0 Intake, Oral 0 Patient 93 lb Weight Weight Reported by Patient Measurement Method Physical Exam General Appearance: alert, awake, anxious, mild distress, thin Head: atraumatic, normal appearance Eyes: Bilateral: normal appearance. Ears, Nose, Throat: hearing grossly normal Neck: normal inspection, supple, full range of motion Respiratory: normal breath sounds, lungs clear Cardiovascular: regular rate/rhythm, normal S1S2 Regular without Rub, Murmur or Gallop Gastrointestinal: normal bowel sounds, soft, non-tender, no organomegaly Rectal: normal rectal tone, heme negative stool Back: normal inspection Neurologic/Psych: oriented x 3, normal mood/affect Cranial Nerves: Normal cranial nerves II-XII intact Skin: Bruising upper extremities/forearms bilaterally Results Pertinent Lab Results: Laboratory Tests 07/02 07/02 1120 1056 Chemistry Sodium (137 - 145 mmol/L) 142 Potassium (3.5 - 5.1 mmol/L) 4.4 Chloride (98 - 107 mmol/L) 101 Carbon Dioxide (22 - 30 mmol/L) 26 Anion Gap (5 - 16) 16 BUN (7 - 17 mg/dL) 23 H Creatinine (0.5 - 1.0 mg/dL) 0.8 Estimated GFR (>60 ml/min) > 60 BUN/Creatinine Ratio (7 - 25 %) 28.8 H Glucose (65 - 99 mg/dL) 90 Calcium (8.4 - 10.2 mg/dL) 9.0 Total Bilirubin (0.2 - 1.3 mg/dL) 0.5 AST (14 - 36 U/L) 37 H ALT (9 - 52 U/L) 28 Alkaline Phosphatase (<127 U/L) 97 Troponin I (< 0.11 ng/ml) < 0.01 Cancelled Total Protein (6.3 - 8.2 g/dL) 8.7 H Albumin (3.5 - 5.0 g/dL) 3.6 Globulin (1.9 - 4.2 gm/dL) 5.1 H Albumin/Globulin Ratio (1.1 - 2.2 %) 0.7 L Coagulation PT (9.4 - 12.5 SEC) 12.7 H INR (0.90 - 1.19) 1.21 H APTT (25 - 37 SEC) 25 Hematology CBC w Diff MAN DIFF ORDERED WBC (4.8 - 10.8 /CUMM) 3.2 L RBC (4.20 - 5.40 /CUMM) 2.09 L Hgb (12.0 - 16.0 G/DL) 6.3 *L Hct (37 - 47 %) 21.9 L MCV (81.0 - 99.0 FL) 104.7 H MCH (27.0 - 31.0 PG) 30.0 RDW (11.5 - 14.5 %) 18.5 H Plt Count (130 - 400 /CUMM) 189 MPV (7.4 - 10.4 FL) 8.8 Segmented Neutrophils (42.2 - 75.2 %) 40 L Band Neutrophils (0.0 - 5.0 %) 2 Lymphocytes (20.5 - 51.1 %) 48 Monocytes (1.7 - 9.3 %) 10 H Nucleated RBCs (0.0 - 0.0 /100WBC) 1 H Platelet Estimate (ADEQUATE) VERIFIED BY SMEAR Polychromasia 1+ Anisocytosis 1+ Macrocytic Cells 2+ PUBS MCHC (33.0 - 37.0 G/DL) 28.7 L Imaging/Other Studies: IMPRESSION: Pulmonary vascular congestion without dimitris pulmonary edema. No pleural effusions are present. Assessment/Plan Assessment/Recommendations: ASSESSMENT: 1. Acute Drop in H/H 2. Black Stools. Patient's stools are not clearly melenic. Per the ER report there is no stool in the vault and secretions were Hemoccult negative. Patient does not describe tarry or foul-smelling stools. Patient is Gallo had a negative EGD and colonoscopy in September. Question other etiology such as vasculitis that would explain her drop in H&H such as hemolysis which has been an ongoing problem in the past. 3. Myelodysplastic Syndrome 4. SLE -- on prednisone and plaquenil RECOMMENDATIONS: 1. Transfuse 2 units PRBC as you are doing now 2. Urgent EGD 3. If negative would recommend outpatient video capsule endoscopy to r/o small bowel avm 4. check haptoglobin and LDH 5. Protonix 40 mg IV BID 6. Admit to medical floor 7. 2 large bore IV 8. Serial H/H, every 6 hours for the first 24 hours 9. NPO until further notice 10. IV fluids, until able to take PO Copies To: Jay PROCTOR,Niranjan Saunders Consult Acknowledgment - Thank you for your consult request.
--- NOTE | 2017-07-02 13:43 | History & Physical ---
Juanjo Garcia 07/02/17 1342: General Information and HPI MD Statement: I have seen and personally examined GRUPO HOANG and documented this H&P. The patient is a 86 year old F who presented with a patient stated chief complaint of black stools for 1 week Source of Information: patient, family, Electronic Medical Records Exam Limitations: no limitations History of Present Illness: This is a 86-year-old female with past medical history significant for myelodysplastic syndrome, diagnosed from bone biopsy, on darbepoetin every 2 weeks, lupus on hydroxy chloroquine, prednisone, GERD, chronic anemia, COPD not on home oxygen, hypertension, degenerative joint disease, arthritis, history of falls, osteopenia presented from Dr. Gibbons's office for evaluation of low hemoglobin and black stools. Patient was diagnosed with myelodysplastic syndrome after bone marrow biopsy in 2015, has been following up with Dr. Gibbons oncologist, getting darbepoetin injections every 2 weeks. She was admitted at in September 2016 for anemia with hemoglobin 4.7, status post colonoscopy and endoscopy which were normal. She was advised to get outpatient PillCam study. Biopsies and celiac panel was negative. However she didn't get any outpatient PillCam study so far. Patient went for her routine appointment today with Dr. Gibbons to get darbepoetin injection, however she was found to have low hemoglobin. She was sent into the ER for further evaluation. Patient reports one-week history of black colored stools. She denied any nausea , vomiting, hematemesis, hematochezia. She has been noticing black tarry stools for 1 week. Denied any fresh blood in stool. She takes omeprazole daily. Of note she is on hydroxychloroquine and prednisone twice daily for lupus. Denied taking any iron supplements. Denied taking any fgln-bid-dqvrldz pain medication , and NSAIDS. She reports being tired and having low appetite these days. Otherwise she denied any chest pain, shortness of breath, exertional dyspnea. Review of systems was negative for chest pain, shortness of breath, fever, chills, palpitations, nausea, vomiting, abdominal pain, urinary symptoms, headache. Denied any allergies. Home medications include aspirin, Lipitor, hydroxychloroquine, prednisone, omeprazole. She denied any smoking, alcohol abuse, illicit drug abuse. She follows up with her PCP, oncologist Dr. 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 Allergies/Medications Allergies: Coded Allergies: NO KNOWN ALLERGIES (06/06/15) Home Med list Aspirin (Ecotrin*) 81 MG TABLET.DR 1 TAB PO DAILY HEART HEALTH (Reported) Atorvastatin Calcium (Lipitor) 40 MG TABLET 1 TAB PO DAILY CHOLESTEROL ( Reported) Cholecalciferol (Vitamin D3) (Vitamin D3) 400 UNIT TABLET 1 TAB PO DAILY SUPPLEMENT (Reported) Hydroxychloroquine Sulfate 200 MG TABLET 1 TAB PO DAILY LUPUS (Reported) Omeprazole Magnesium (Prilosec Otc) 20 MG TABLET.DR 1 TAB PO DAILY GI ( Reported) Potassium Chloride 10 MEQ TABLET.ER 2 TAB PO BID SUPPLEMENT (Reported) Prednisone 5 MG TABLET 1 TAB PO BID LUPUS (Reported) Compliance With Home Meds: GOOD Past History Travel History Traveled to [place] past 21 day No Medical History Neurological: NONE EENT: NONE Cardiovascular: hypertension, hyperlipidemia Respiratory: COPD Gastrointestinal: GERD (dependent on OTC Prilosec xyrs) Hepatic: NONE Renal: urinary incontinence Musculoskeletal: degen joint disease, falls, SLE Psychiatric: NONE Endocrine: NONE, osteopenia Blood Disorders: anemia, MYELODYSPLASIA Cancer(s): NONE 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 if primary vs. met); non-cirrhotic.). , Age 60+ ; Cause: Postoperative complication. MOTHER, , Age 60+; Cause: Unknown cause of morbidity or mortality. SON, , Age 30-40; Cause: MVA (motor vehicle accident). Psychosocial History Who Do You Live With? spouse (in law apt next to dtr), self Services at Home: None Primary Language: Latvian ETOH Use: denies use Illicit Drug Use: denies illicit drug use Living Will? no Power of Studio Associate/HCP? no Functional Ability ADLs Independent: dressing, eating, toileting, bathing. Ambulation: cane IADLs Independent: shopping, housework, finances, food prep, telephone, transportation , medication admin. Sexual History Past Sexual History Unobtainable at this time Review of Systems Review of Systems Constitutional: Reports: see HPI, weakness. Denies: diaphoresis, fever, malaise, unexplained weight loss. EENTM: Denies: blurred vision, double vision, visual changes, hearing changes. Cardiovascular: Denies: chest pain, edema, orthopena, palpitations, peripheral edema, syncope. Respiratory: Denies: cough, hemoptysis, orthopnea, short of breath, sputum production, stridor. GI: Reports: changes in stool. Denies: abdominal pain, constipation, diarrhea, bowel incontinence, nausea, bloody stool. Genitourinary: Denies: discharge, dysuria, frequency, hematuria. Musculoskeletal: Denies: back pain, gout, joint pain. Skin: Reports: erythema, rash. Exam & Diagnostic Data Last 24 Hrs of Vital Signs/I&O Vital Signs Date Time Temp Pulse Resp B/P B/P Pulse O2 O2 Flow FiO2 Mean Ox Delivery Rate 07/02 1249 98.1 72 16 122/59 93 Room Air 07/02 1048 97.5 67 20 137/63 93 Room Air Intake & Output 07/02 1600 07/02 0800 07/02 0000 Intake Total 0 Output Total Balance 0 Intake, Oral 0 Patient 42.184 kg Weight Weight Reported by Patient Measurement Method Physical Exam General Appearance Alert, Oriented X3, Cooperative, No Acute Distress Skin ECHYMOTIC LESIONS EVERYWHERE Skin Temp/Moisture Exam: Warm/Dry HEENT Atraumatic, PERRLA, EOMI, Mucous Membr. moist/pink Neck Supple, No JVD Lymphatic Axillary nl, Cervical nl Cardiovascular Normal S1, Normal S2 Lungs Clear to Auscultation, Normal Air Movement Abdomen Normal Bowel Sounds, Soft, No Tenderness, No Hepatospenomegaly Neurological Normal Speech, Strength at 5/5 X4 Ext, Normal Tone Extremities No Clubbing, No Cyanosis, No Edema, Normal Pulses, No Tenderness/ Swelling Vascular Pulses Symmetrical Last 24 Hrs of Labs/Red: Laboratory Tests 07/02/17 1120: Anion Gap 16, Estimated GFR > 60, BUN/Creatinine Ratio 28.8 H, Glucose 90, Calcium 9.0, Iron 89, TIBC 228 L, Ferritin Pending, Total Bilirubin 0.5, AST 37 H, ALT 28, Alkaline Phosphatase 97, Lactate Dehydrogenase 680 H, Troponin I < 0.01, Total Protein 8.7 H, Albumin 3.6, Globulin 5.1 H, Albumin/Globulin Ratio 0.7 L, Vitamin B12 Pending, Folate Pending, PT 12.7 H, INR 1.21 H, APTT 25, CBC w Diff MAN DIFF ORDERED, RBC 2.09 L, MCV 104.7 H, MCH 30.0, RDW 18.5 H, MPV 8.8, Segmented Neutrophils 40 L, Band Neutrophils 2, Lymphocytes 48, Monocytes 10 H, Nucleated RBCs 1 H, Platelet Estimate VERIFIED BY SMEAR, Polychromasia 1+, Anisocytosis 1+, Macrocytic Cells 2+, PUBS MCHC 28.7 L 07/02/17 1056: Troponin I Cancelled 07/02/17 1032: Haptoglobin Pending Microbiology 07/02 1436 GI: RHODA Preparation - COMP YEAST Assessment/Plan Assessment: This is a 86-year-old female with past medical history significant for myelodysplastic syndrome, diagnosed from bone biopsy, on darbepoetin every 2 weeks, lupus on hydroxy chloroquine, prednisone, GERD, chronic anemia, COPD not on home oxygen, hypertension, degenerative joint disease, arthritis, history of falls, osteopenia presented from Dr. Gibbons's office for evaluation of low hemoglobin and black stools. Vitals at the time of presentation afebrile, heart rate 67, respiratory rate 20, blood pressure 130/60, saturating at 93 on room air. Pertinent labs- WBC 3.2, hemoglobin 6.3, hematocrit 21.9, platelets 189. BEP completely normal LFT normal Troponin 0.01 Chest x-ray findings suggestive of pulmonary vascular congestion. 1. Acute blood loss anemia/melena Patient was sent in by PCP for evaluation of black stools and low hemoglobin. She is hemodynamically stable with normal vitals. However she was found to have hemoglobin 6.3 and hematocrit 21.9, MCV 104.7, RDW 18.5. LFTs were normal. Bilirubin was normal. stool guaiac negative. She will be admitted to general medicine for management of anemia. * Admit to general med floor * Monitor vitals closely * Acute on chronic anemia most possibly from worsening myelodysplastic syndrome, bone marrow suppression of RBC production. * Stool guaiac negative * Urgent endoscopy was done which showed Rosetta esophagitis. No source of bleeding was found. Patient needs outpatient PillCam study to evaluate for small bowel telangiectasia given history of lupus erythematosus * Type and screen * 2 large IV bore lines * Guaiac all the stools * Provide adequate hydration * Transfuse 2 units * serial hemoglobin * IV Protonix twice daily 40 mg * Appreciate shelf stocker recommendations * Avoid nsaids * Check orthostatic vitals * Hold aspirin * Follow-up iron studies, B12, folate, haptoglobin, LDH 2. Rosetta esophagitis Patient underwent urgent endoscopy given her acute on chronic anemia with hemoglobin 6.3. She was found to have Rosetta esophagitis on endoscopy. Patient also reports odynophagia sometimes. * Fungal infection most likely from prednisone use * Fluconazole 200 mg once and then continue fluconazole 100 daily for 14 days Lupus continue hydroxychloroquine and prednisone Hyperlipidemia continue Lipitor Myelodysplastic emserclf-zxibki-rk with Dr. Gibbons as an outpatient COPD not on home oxygen Full code DVT prophylaxis alps given GI bleed Regular diet Pain pathway As Ranked By This Provider Problem List: 1. MDS (myelodysplastic syndrome) 2. GERD (gastroesophageal reflux disease) 3. Anemia Core Measures/Misc (02/24) Acute Coronary Syndrome ACS Diagnosis: No Congestive Heart Failure Congestive Heart Failure Diagnosis No Cerebrovascular Accident CVA/TIA Diagnosis: No VTE (View Protocol) VTE Risk Factors No risk factors No Mechanical VTE Prophylaxis d/t Medical Contraindication No VTE Pharm Prophylaxis d/t Medical Contraindication Sepsis (View protocol) Sepsis Present: No Darvin PROCTOR,Steph 07/03/17 1123: Attending MD Review Statement Attending Statement Attending MD Statement: examined this patient, discuss w/resident/PA/OVERLAY PLASTICIAN, agreed w/resident/PA/OVERLAY PLASTICIAN, discussed with family, reviewed EMR data (avail), discussed with nursing, discussed with case mgmt, amended to note Attending Assessment/Plan: See my separate addendum.
--- NOTE | 2017-07-02 14:54 | Proc Note Endoscopy ---
Endoscopy Procedure Medical History: unchanged Mental Status: alert/oriented Heart/Lung Eval Prior to Sedation: within normal limits Candidate for Sedation? Yes Procedure Date: 07/02/17 Procedure Type: EGD w/biopsy Hand Rounder: Steph Boston MD ASA Classification: III Indications: 1. Acute Drop in Hemoglobin and Hematocrit 2. Melena 3. Light-headedness Instrument: diagnostic gastroscope Meds Received: MAC Patient's Tolerance: good Complications: none Extent Reached: second part of duodenum Procedure: Note: Informed consent was obtained prior to procedure. Risks and benefits of procedure were discussed with patient. Potential complications discussed included perforation, bleeding, abdominal pain, and adverse reaction to medications. It was explained that iany or all of these complications could result in the need for extended hospitalization, emergency surgery, transfusion of packed red blood cells (with the risk of HIV or hepatitis virus), intubation with mechanical ventilation, and possible need for antibiotics. It was further explained that an existing tumor polyp or mucosal abnormality might not be identified at the time of the procedure thus resulting in a missed opportunity for early diagnosis and treatment of a gastrointestinal malignancy or disease with possible interval development of a gastrointestinal cancer or other disease with possible worsening of clinical condition in the interval between endoscopies. It was also discussed that complications are not limited to those listed above. Possible alternatives to endoscopic treatment or evaluation were discussed. All questions were answered. Continuous EKG and blood pressure monitors were attached. Supplemental oxygen was provided with O2 Sat monitoring. Patient was placed in the left lateral decubitus position. A surgical timeout was performed. All persons in the room were identified. All concerns were expressed and answered. A bite block was placed in the mouth and sedation was administered by anesthesia and titrated to comfort prior to starting the procedure. The Olympus upper endoscope was advanced under direct vision to the level of the third portion of the duodenum. Esophagus: The esophagus had a normal mucosal vascular pattern throughout its entirety. The GE junction was identified and was normal. The Z line was located at 35 cm from the incisors and was nondisplaced. At the GE junction and throughout the entire esophagus there were tenacious heaped up white plaques/Mt. was suggestive of Candidal plaques. Brushing was obtained from the distal esophagus. Biopsy also was obtained from the distal esophagus to rule out underlying inflammatory changes. There was a qpjar-uh-kqkhed sized hiatal hernia noted. Stomach: The stomach had a normal mucosal and vascular pattern throughout its entirety. Retroflexed view of the cardiofundic region revealed a normal mucosal and vascular pattern. There were normal rugae and normal distensibility. There is a tadjy-au-zopqyd sized hiatal hernia noted. There were no Bart's erosions. The pylorus was patent and easily intubated. Biopsies were obtained from the antrum, angularis, gastric body and lesser curvature to rule out H. Pylori. Duodenum: The duodenum was fully examined from bulb down to the third portion. There was a normal mucosal vascular pattern throughout. Biopsies were obtained from D1, D2 and the duodenal bulb to rule out celiac disease. Over 6 separate bites were obtained. With the endoscope in the forward-viewing position, it was slowly withdrawn and all areas were re-inspected and findings are as described previously. Patient tolerated the procedure well. EBL: Minimal Specimens Removed: 1. D1, D2 and the duodenal bulb to rule out celiac disease. 2. antrum, angularis, gastric body and lesser curvature to rule out H. Pylori. 3. Brushing to rule out bri esophagitis 4. Distal esophageal biopsy Findings: 1. Mtraa-bv-npsfwb sized hiatal hernia 2. Bri esophagitis Impression: 1. Zodqy-qv-rznoft sized hiatal hernia 2. Bri esophagitis Recommendations: 1. Await pathology 2. As per my consult would check LDH and haptoglobin 3. As this is patient's second unremarkable EGD for evaluation of melena, would recommend outpatient video capsule endoscopy as patient may have melenic stool from small bowel telangiectasia given history of lupus erythematosus and prior negative EGD and colonoscopy. Also, given Hemoccult-negative stool as well as description of formed black stools would consider alternative etiologies for her drop in H&H such as hemolysis and/or progression of her myelodysplastic disease process. 4. Transfuse as needed 5. Serial H&H 6. Regular diet 7. Start Diflucan 200 mg by mouth on day 1 and then 100 mg daily for 14 day course CC: Jay PROCTOR,Niranjan Saundesr
[2017-07-02 15:30] VITALS: BP 122/59
--- NOTE | 2017-07-02 16:16 | PN- Att Addend ---
Attending Addendum Attending Brief Note 86-year-old female with past history significant for myelodysplasia, lupus, hypertension, GERD, previous admission for anemia presented with the black stools 1 week. Patient has been complaining of feeling tired and exhausted lately. She claims that she has not required any blood transfusions since September of last year. She denies any abdominal pain. She does admit to occasional Alia Borjas. Coagulation was seen by GI in the emergency room and was taken for endoscopy. Endoscopy results revealed a hiatal hernia as well as Rosetta esophagitis. Patient has been started on a PPI as well as Diflucan per GI recommendations. Vital Signs Date Time Temp Pulse Resp B/P B/P Pulse O2 O2 Flow FiO2 Mean Ox Delivery Rate 07/02 1249 98.1 72 16 122/59 93 Room Air 07/02 1048 97.5 67 20 137/63 93 Room Air on exam; aox3, nad. cv; s1,s2, rrr resp; clear abd; soft, nt, bs+ ext; no edema. Laboratory Tests 07/02 07/02 07/02 1120 1056 1032 Chemistry Sodium (137 - 145 mmol/L) 142 Potassium (3.5 - 5.1 mmol/L) 4.4 Chloride (98 - 107 mmol/L) 101 Carbon Dioxide (22 - 30 mmol/L) 26 Anion Gap (5 - 16) 16 BUN (7 - 17 mg/dL) 23 H Creatinine (0.5 - 1.0 mg/dL) 0.8 Estimated GFR (>60 ml/min) > 60 BUN/Creatinine Ratio (7 - 25 %) 28.8 H Glucose (65 - 99 mg/dL) 90 Calcium (8.4 - 10.2 mg/dL) 9.0 Iron (37 - 170 ug/dL) 89 TIBC (265 - 497 ug/dL) 228 L Ferritin (11.1 - 264 ng/mL) Pending Total Bilirubin (0.2 - 1.3 mg/dL) 0.5 AST (14 - 36 U/L) 37 H ALT (9 - 52 U/L) 28 Alkaline Phosphatase (<127 U/L) 97 Lactate Dehydrogenase (313 - 618 U/L) 680 H Troponin I (< 0.11 ng/ml) < 0.01 Cancelled Total Protein (6.3 - 8.2 g/dL) 8.7 H Albumin (3.5 - 5.0 g/dL) 3.6 Globulin (1.9 - 4.2 gm/dL) 5.1 H Albumin/Globulin Ratio (1.1 - 2.2 %) 0.7 L Vitamin B12 (239 - 931 pg/mL) Pending Folate (2.76 - 20.0 ng/mL) Pending Coagulation PT (9.4 - 12.5 SEC) 12.7 H INR (0.90 - 1.19) 1.21 H APTT (25 - 37 SEC) 25 Hematology CBC w Diff MAN DIFF ORDERED WBC (4.8 - 10.8 /CUMM) 3.2 L RBC (4.20 - 5.40 /CUMM) 2.09 L Hgb (12.0 - 16.0 G/DL) 6.3 *L Hct (37 - 47 %) 21.9 L MCV (81.0 - 99.0 FL) 104.7 H MCH (27.0 - 31.0 PG) 30.0 RDW (11.5 - 14.5 %) 18.5 H Plt Count (130 - 400 /CUMM) 189 MPV (7.4 - 10.4 FL) 8.8 Segmented Neutrophils (42.2 - 75.2 %) 40 L Band Neutrophils (0.0 - 5.0 %) 2 Lymphocytes (20.5 - 51.1 %) 48 Monocytes (1.7 - 9.3 %) 10 H Nucleated RBCs (0.0 - 0.0 /100WBC) 1 H Platelet Estimate (ADEQUATE) VERIFIED BY SMEAR Polychromasia 1+ Anisocytosis 1+ Macrocytic Cells 2+ PUBS MCHC (33.0 - 37.0 G/DL) 28.7 L Haptoglobin Pending Chest x-ray shows some pulmonary congestion but no overt pulmonary edema. A/P: 86-year-old female with past history significant for myelodysplasia, lupus, hypertension, GERD, previous admission for anemia admitted with acute blood loss anemia secondary to GI bleed. Endoscopy findings as dictated above. Patient will be started on Diflucan as well as PPI. Patient be started on diet. She has received 1 unit of transfusion. Will give her dose of Lasix in between and she will receive the second unit. Please monitor H&H. We'll continue the rest of her home medications but hold aspirin. DVT prophylaxis: ALPS. Full code. PT eval. Daughter present at bedside.
[2017-07-02 22:33] VITALS: BP 128/58
[2017-07-03 01:33] LABS: ABSOLUTE BASOPHIL COUNT 0 /CUMM (0.0-0.2); ABSOLUTE EOSINOPHIL COUNT 0 /CUMM (0.0-0.7); ABSOLUTE LYMPH COUNT 0.7 /CUMM (1.2-3.4); BASOPHIL % 0 % (0.0-2.0); HEMATOCRIT 24.5 % (37-47)
[2017-07-03 01:52] LABS: ABSOLUTE GRANULOCYTE CT 0.3 /CUMM (1.4-6.5); ABSOLUTE MONOCYTE COUNT 0.2 /CUMM (0.10-0.60); EOSINOPHIL % 0 % (0-5); MEAN CORPUSCULAR HGB 30.4 PG (27.0-31.0); MEAN CORPUSCULAR HGB CONC 31.4 G/DL (33.0-37.0); MEAN PLATELET VOLUME 8.8 FL (7.4-10.4); RED BLOOD CELL CT 2.54 /CUMM (4.20-5.40)
[2017-07-03 01:54] LABS: MEAN CORPUSCULAR VOLUME 96.8 FL (81.0-99.0)
[2017-07-03 04:46] LABS: PLATELET COUNT 141 /CUMM (130-400)
[2017-07-03 04:54] LABS: WHITE BLOOD CELL COUNT 1.1 /CUMM (4.8-10.8)
[2017-07-03 05:35] LABS: ABSOLUTE BASOPHIL COUNT 0 /CUMM (0.0-0.2); ABSOLUTE EOSINOPHIL COUNT 0 /CUMM (0.0-0.7); ABSOLUTE GRANULOCYTE CT 0.4 /CUMM (1.4-6.5); ABSOLUTE LYMPH COUNT 0.8 /CUMM (1.2-3.4); ABSOLUTE MONOCYTE COUNT 0 /CUMM (0.10-0.60); BASOPHIL % 0 % (0.0-2.0); EOSINOPHIL % 0 % (0-5); GRANULOCYTE % 32.8 % (42.2-75.2); HEMATOCRIT 25.6 % (37-47); MEAN CORPUSCULAR HGB 30.6 PG (27.0-31.0); MEAN CORPUSCULAR HGB CONC 31.3 G/DL (33.0-37.0); MEAN CORPUSCULAR VOLUME 97.9 FL (81.0-99.0); MEAN PLATELET VOLUME 9.6 FL (7.4-10.4); PLATELET COUNT 152 /CUMM (130-400); RBC DISTRIBUTION WIDTH 20.9 % (11.5-14.5); RED BLOOD CELL CT 2.61 /CUMM (4.20-5.40)
[2017-07-03 06:00] VITALS: BP 132/60
[2017-07-03 06:42] LABS: WHITE BLOOD CELL COUNT 1.3 /CUMM (4.8-10.8)
--- NOTE | 2017-07-03 07:29 | PN- Housestaff ---
Subjective Follow-up For: Acute blood loss anemia Myelodysplastic syndrome Candidia esophagitis Complaints: no complaints Subjective: Patient was seen and examined this morning. She is alert awake and oriented to time place and person. No acute events noticed. She denied any abdominal pain, nausea, vomiting, black stools. She is feeling much better this morning. No new complaints. She worked with physical therapist this morning. Vitals remained stable Review of Systems Constitutional: Reports: see HPI. Objective Last 24 Hrs of Vital Signs/I&O Vital Signs Date Time Temp Pulse Resp B/P B/P Pulse O2 O2 Flow FiO2 Mean Ox Delivery Rate 07/03 1419 98.3 63 18 128/52 97 Room Air 07/03 0600 98.7 71 18 132/60 94 Nasal Cannula 07/03 0000 Nasal 1.0L Cannula 07/02 2233 98.5 68 20 128/58 95 Nasal Cannula 07/02 1817 96 Nasal 1.0L Cannula Intake & Output 07/03 1600 07/03 0800 07/03 0000 Intake Total 480 451 Output Total 350 250 Balance 130 201 Intake, Blood 1 Product Intake, IV 50 Intake, Oral 480 400 Output, Urine 350 250 Patient 42.638 kg Weight Weight Reported by Patient Measurement Method Physical Exam General Appearance: Alert, Oriented X3, Cooperative, No Acute Distress Other Physical Findings: Skin ECHYMOTIC LESIONS EVERYWHERE Skin Temp/Moisture Exam: Warm/Dry HEENT Atraumatic, PERRLA, EOMI, Mucous Membr. moist/pink Neck Supple, No JVD Lymphatic Axillary nl, Cervical nl Cardiovascular Normal S1, Normal S2 Lungs Clear to Auscultation, Normal Air Movement Abdomen Normal Bowel Sounds, Soft, No Tenderness, No Hepatospenomegaly Neurological Normal Speech, Strength at 5/5 X4 Ext, Normal Tone Extremities No Clubbing, No Cyanosis, No Edema, Normal Pulses, No Tenderness/ Swelling Vascular Pulses Symmetrical Current Medications: Current Medications Sig/Zeb Start time Last Medication Dose Route Stop Time Status Admin Acetaminophen 650 MG Q6P PRN 07/02 1530 AC PO Acetaminophen 1,000 MG Q6P PRN 07/02 1530 AC IV Atorvastatin Calcium 40 MG DAILY 07/02 1534 AC 07/03 PO 0955 Benzocaine/Menthol 1 EVANGELIST Q2P PRN 07/02 2115 AC 07/03 PO 1432 Cholecalciferol 400 IU DAILY 07/02 1534 AC 07/03 PO 0957 Fluconazole 100 MG DAILY 07/03 1000 AC 07/03 PO 0956 Fluconazole 200 MG ONCE ONE 07/02 1545 DC PO 07/02 1546 Furosemide 20 MG ONCE ONE 07/02 1615 DC IV 07/02 1616 Hydroxychloroquine 200 MG DAILY 07/03 1000 AC 07/03 Sulfate PO 0957 Omeprazole 40 MG BID 07/03 1000 AC 07/03 PO 1432 Pantoprazole Sodium 40 MG BID 07/02 1533 DC 07/02 IV 2140 Patient Medication 1 ED ONE ONE 07/03 1100 DC Teaching ED 07/03 1101 Prednisone 5 MG BID 07/02 2200 AC 07/03 PO 0955 Last 24 Hrs of Lab/Red Results Last 24 Hrs of Labs/Mics: Laboratory Tests 07/03/17 0825: Anion Gap 13, Estimated GFR > 60, BUN/Creatinine Ratio 48.3 H, CBC w Diff MAN DIFF ORDERED, RBC 2.76 L, MCV 98.2, MCH 31.0, RDW 20.1 H, MPV 8.3, Gran % 39.9 L, Lymphocytes % 59.1 H, Monocytes % 0.9 L, Eosinophils % 0, Basophils % 0.1, Absolute Granulocytes 0.8 L, Segmented Neutrophils 35 L, Band Neutrophils 2, Absolute Lymphocytes 1.1 L, Lymphocytes 62 H, Monocytes 1 L, Absolute Monocytes 0 L, Absolute Eosinophils 0, Absolute Basophils 0, Nucleated RBCs 2 H, Platelet Estimate VERIFIED BY SMEAR, Polychromasia 1+, Anisocytosis 2+, Target Cells , PUBS MCHC 31.5 L 07/03/17 0500: CBC w Diff NO MAN DIFF REQ, RBC 2.61 L, MCV 97.9, MCH 30.6, RDW 20.9 H, MPV 9.6, Gran % 32.8 L, Lymphocytes % 65.6 H, Monocytes % 1.6 L, Eosinophils % 0, Basophils % 0, Absolute Granulocytes 0.4 L, Absolute Lymphocytes 0.8 L, Absolute Monocytes 0 L, Absolute Eosinophils 0, Absolute Basophils 0, PUBS MCHC 31.3 L 07/03/17 0030: CBC w Diff MAN DIFF ORDERED, RBC 2.54 L, MCV 96.8, MCH 30.4, RDW 20.0 H, MPV 8.8, Gran % 27.0 L, Lymphocytes % 59.5 H, Monocytes % 13.5 H, Eosinophils % 0 , Basophils % 0, Absolute Granulocytes 0.3 L, Segmented Neutrophils 27 L, Absolute Lymphocytes 0.7 L, Lymphocytes 63 H, Monocytes 10 H, Absolute Monocytes 0.2, Absolute Eosinophils 0, Absolute Basophils 0, Nucleated RBCs 7 H , Platelet Estimate ADEQUATE, Polychromasia 1+, Hypochromic-Microcytic 1+, Anisocytosis 1+, Macrocytic Cells FEW, Target Cells FEW, Stomatocytes FEW, Bhargav Cells FEW, PUBS MCHC 31.4 L 07/02/17 1607: Urine Color YEL, Urine Clarity CLEAR, Urine pH 7.5, Ur Specific [place] 1.020, Urine Protein NEG, Urine Ketones NEG, Urine Nitrite NEG, Urine Bilirubin NEG, Urine Urobilinogen 0.2, Ur Leukocyte Esterase NEG, Ur Microscopic EXAM NOT REQUIRED, Urine Hemoglobin NEG, Urine Glucose NEG Assessment/Plan Assessment: This is a 86-year-old female with past medical history significant for myelodysplastic syndrome, diagnosed from bone biopsy, on darbepoetin every 2 weeks, lupus on hydroxy chloroquine, prednisone, GERD, chronic anemia, COPD not on home oxygen, hypertension, degenerative joint disease, arthritis, history of falls, osteopenia presented from Dr. Gibbons's office for evaluation of low hemoglobin and black stools. Vitals at the time of presentation afebrile, heart rate 67, respiratory rate 20, blood pressure 130/60, saturating at 93 on room air. Pertinent labs- WBC 3.2, hemoglobin 6.3, hematocrit 21.9, platelets 189. BEP completely normal LFT normal Troponin 0.01 Chest x-ray findings suggestive of pulmonary vascular congestion. 1. Acute blood loss anemia/melena Patient was sent in by PCP for evaluation of black stools and low hemoglobin. She is hemodynamically stable with normal vitals. However she was found to have hemoglobin 6.3 and hematocrit 21.9, MCV 104.7, RDW 18.5. LFTs were normal. Bilirubin was normal. stool guaiac positive. She is admitted to general medicine for management of anemia. * Admited to general med floor * Monitor vitals closely * Acute on chronic anemia most possibly from worsening myelodysplastic syndrome, bone marrow suppression of RBC production. * Stool guaiac positive * Urgent endoscopy was done which showed Rosetta esophagitis. No source of bleeding was found. Patient needs outpatient PillCam study to evaluate for small bowel telangiectasia given history of lupus erythematosus * Type and screen * 2 large IV bore lines * Guaiac all the stools * Provide adequate hydration * Transfused 2 units * serial hemoglobin-hemoglobin remained stable between 7-8. * Oral PPI omeprazole 40 mg twice daily * Appreciate senior health consultant recommendations * Avoid nsaids * Hold aspirin 2. Rosetta esophagitis Patient underwent urgent endoscopy given her acute on chronic anemia with hemoglobin 6.3. She was found to have Rosetta esophagitis on endoscopy. Patient also reports odynophagia sometimes. * Fungal infection most likely from prednisone use * Fluconazole 200 mg once and then continue fluconazole 100 daily for 14 days- day1 3. Neutropenia WBC count went down to as low as 1.3. Absolute neutrophil count 426. Oncology consult was placed in regarding management of neutropenia. Given her myelodysplastic disease neupogen is not recommended. * Follow-up WBC count closely * Follow-up oncology recommendations Lupus continue hydroxychloroquine and prednisone Hyperlipidemia continue Lipitor Myelodysplastic [id number] with Dr. Gibbons as an outpatient COPD not on home oxygen Full code DVT prophylaxis alps given GI bleed Regular diet Pain pathway Problem List: 1. MDS (myelodysplastic syndrome) 2. GERD (gastroesophageal reflux disease) Pain Ratin Pain Location: n/a Pain Goal: Remain pain free Pain Plan: tylniol Tomorrow's Labs & Rationales: cbc
[2017-07-03 09:03] LABS: ABSOLUTE BASOPHIL COUNT 0 /CUMM (0.0-0.2); ABSOLUTE EOSINOPHIL COUNT 0 /CUMM (0.0-0.7); ABSOLUTE GRANULOCYTE CT 0.8 /CUMM (1.4-6.5); ABSOLUTE LYMPH COUNT 1.1 /CUMM (1.2-3.4); ABSOLUTE MONOCYTE COUNT 0 /CUMM (0.10-0.60); BASOPHIL % 0.1 % (0.0-2.0); EOSINOPHIL % 0 % (0-5); GRANULOCYTE % 39.9 % (42.2-75.2); HEMATOCRIT 27.1 % (37-47); MEAN CORPUSCULAR HGB CONC 31.5 G/DL (33.0-37.0); MEAN CORPUSCULAR VOLUME 98.2 FL (81.0-99.0); MEAN PLATELET VOLUME 8.3 FL (7.4-10.4); PLATELET COUNT 136 /CUMM (130-400); RBC DISTRIBUTION WIDTH 20.1 % (11.5-14.5); RED BLOOD CELL CT 2.76 /CUMM (4.20-5.40); WHITE BLOOD CELL COUNT 1.9 /CUMM (4.8-10.8)
--- NOTE | 2017-07-03 11:35 | PN- Att Addend ---
Attending Addendum Attending Brief Note Patient seen and examined, Feels ok. H&H remains stable. WBC was dropped yesterday but improved today. Vital Signs Date Time Temp Pulse Resp B/P B/P Pulse O2 O2 Flow FiO2 Mean Ox Delivery Rate 07/03 0600 98.7 71 18 132/60 94 Nasal Cannula 07/03 0000 Nasal 1.0L Cannula 07/02 2233 98.5 68 20 128/58 95 Nasal Cannula 07/02 1817 96 Nasal 1.0L Cannula 07/02 1530 98.1 72 16 122/59 93 Nasal 1.0L Cannula 07/02 1249 98.1 72 16 122/59 93 Room Air on exam; aox3, nad. cv; s1,s2, rrr resp; clear abd; soft, nt, bs+ ext; no edema. Laboratory Tests 07/03 07/03 0825 0500 Chemistry Sodium (137 - 145 mmol/L) 140 Potassium (3.5 - 5.1 mmol/L) 4.1 Chloride (98 - 107 mmol/L) 101 Carbon Dioxide (22 - 30 mmol/L) 25 Anion Gap (5 - 16) 13 BUN (7 - 17 mg/dL) 29 H Creatinine (0.5 - 1.0 mg/dL) 0.6 Estimated GFR (>60 ml/min) > 60 BUN/Creatinine Ratio (7 - 25 %) 48.3 H Hematology CBC w Diff MAN DIFF ORDERED NO MAN DIFF REQ WBC (4.8 - 10.8 /CUMM) 1.9 L 1.3 *L RBC (4.20 - 5.40 /CUMM) 2.76 L 2.61 L Hgb (12.0 - 16.0 G/DL) 8.5 L 8.0 L Hct (37 - 47 %) 27.1 L 25.6 L MCV (81.0 - 99.0 FL) 98.2 97.9 MCH (27.0 - 31.0 PG) 31.0 30.6 RDW (11.5 - 14.5 %) 20.1 H 20.9 H Plt Count (130 - 400 /CUMM) 136 152 MPV (7.4 - 10.4 FL) 8.3 9.6 Gran % (42.2 - 75.2 %) 39.9 L 32.8 L Lymphocytes % (20.5 - 51.1 %) 59.1 H 65.6 H Monocytes % (1.7 - 9.3 %) 0.9 L 1.6 L Eosinophils % (0 - 5 %) 0 0 Basophils % (0.0 - 2.0 %) 0.1 0 Absolute Granulocytes (1.4 - 6.5 /CUMM) 0.8 L 0.4 L Segmented Neutrophils (42.2 - 75.2 %) 35 L Band Neutrophils (0.0 - 5.0 %) 2 Absolute Lymphocytes (1.2 - 3.4 /CUMM) 1.1 L 0.8 L Lymphocytes (20.5 - 51.1 %) 62 H Monocytes (1.7 - 9.3 %) 1 L Absolute Monocytes (0.10 - 0.60 /CUMM) 0 L 0 L Absolute Eosinophils (0.0 - 0.7 /CUMM) 0 0 Absolute Basophils (0.0 - 0.2 /CUMM) 0 0 Nucleated RBCs (0.0 - 0.0 /100WBC) 2 H Platelet Estimate (ADEQUATE) VERIFIED BY SMEAR Polychromasia 1+ Anisocytosis 2+ Target Cells PUBS MCHC (33.0 - 37.0 G/DL) 31.5 L 31.3 L 07/03 07/02 0030 1607 Hematology CBC w Diff MAN DIFF ORDERED WBC (4.8 - 10.8 /CUMM) 1.1 *L RBC (4.20 - 5.40 /CUMM) 2.54 L Hgb (12.0 - 16.0 G/DL) 7.7 L Hct (37 - 47 %) 24.5 L MCV (81.0 - 99.0 FL) 96.8 MCH (27.0 - 31.0 PG) 30.4 RDW (11.5 - 14.5 %) 20.0 H Plt Count (130 - 400 /CUMM) 141 MPV (7.4 - 10.4 FL) 8.8 Gran % (42.2 - 75.2 %) 27.0 L Lymphocytes % (20.5 - 51.1 %) 59.5 H Monocytes % (1.7 - 9.3 %) 13.5 H Eosinophils % (0 - 5 %) 0 Basophils % (0.0 - 2.0 %) 0 Absolute Granulocytes (1.4 - 6.5 /CUMM) 0.3 L Segmented Neutrophils (42.2 - 75.2 %) 27 L Absolute Lymphocytes (1.2 - 3.4 /CUMM) 0.7 L Lymphocytes (20.5 - 51.1 %) 63 H Monocytes (1.7 - 9.3 %) 10 H Absolute Monocytes (0.10 - 0.60 /CUMM) 0.2 Absolute Eosinophils (0.0 - 0.7 /CUMM) 0 Absolute Basophils (0.0 - 0.2 /CUMM) 0 Nucleated RBCs (0.0 - 0.0 /100WBC) 7 H Platelet Estimate (ADEQUATE) ADEQUATE Polychromasia 1+ Hypochromic-Microcytic 1+ Anisocytosis 1+ Macrocytic Cells FEW Target Cells FEW Stomatocytes FEW [place] Cells FEW PUBS MCHC (33.0 - 37.0 G/DL) 31.4 L Urines Urine Color (YEL,AMB,STR) YEL Urine Clarity (CLEAR) CLEAR Urine pH (5.0 - 8.0) 7.5 Ur Specific [place] (1.001 - 1.035) 1.020 Urine Protein (NEG,<30 MG/DL) NEG Urine Ketones (NEG) NEG Urine Nitrite (NEG) NEG Urine Bilirubin (NEG) NEG Urine Urobilinogen (0.1 - 1.0 EU/dl) 0.2 Ur Leukocyte Esterase (NEG) NEG Ur Microscopic EXAM NOT REQUIRED Urine Hemoglobin (NEG) NEG Urine Glucose (N MG/DL) NEG A/P; 86-year-old female with past history significant for myelodysplasia, lupus, hypertension, GERD, previous admission for anemia admitted with acute blood loss anemia secondary to GI bleed. Endoscopy yesterday results revealed a hiatal hernia as well as Rosetta esophagitis. Continue PPI, Diflucan. H&H stable. WBC dropped due to myelodysplasia and now this am improved. Continue the rest of medications. DVT px; ALPS.
--- NOTE | 2017-07-03 14:18 | Discharge Summary ---
Visit Information Visit Dates Admission Date: 07/02/17 Discharge Date: 07/04/2017 Hospital Course Course Attending Physician: Steph Boston MD Primary Care Physician: Lauryn PROCTOR,[place] Consulting Request: Consulting Specialty: Gastroenterology Hospital Course: This is a 86-year-old female with past medical history significant for myelodysplastic syndrome, diagnosed from bone biopsy, on darbepoetin every 2 weeks, lupus on hydroxy chloroquine, prednisone, GERD, chronic anemia, COPD not on home oxygen, hypertension, degenerative joint disease, arthritis, history of falls, osteopenia presented from Dr. Gibbons's office for evaluation of low hemoglobin and black stools. Vitals at the time of presentation afebrile, heart rate 67, respiratory rate 20, blood pressure 130/60, saturating at 93 on room air. Pertinent labs- WBC 3.2, hemoglobin 6.3, hematocrit 21.9, platelets 189. BEP completely normal LFT normal Troponin 0.01 Chest x-ray findings suggestive of pulmonary vascular congestion. 1. Acute blood loss anemia/melena Patient was sent in by PCP for evaluation of black stools and low hemoglobin. She is hemodynamically stable with normal vitals. However she was found to have hemoglobin 6.3 and hematocrit 21.9, MCV 104.7, RDW 18.5. LFTs were normal. Bilirubin was normal. stool guaiac positive. She is admitted to general medicine for management of anemia. Acute on chronic anemia most possibly from worsening myelodysplastic syndrome, bone marrow suppression of RBC production. Urgent endoscopy was done which showed Bri esophagitis. No source of bleeding was found. Patient needs outpatient PillCam study to evaluate for small bowel telangiectasia given history of lupus erythematosus. Type and screen was done. She received 2 units of packed RBC. Hemoglobin remained stable between 7-8. Received IV Protonix in the hospital. Later switched to oral omeprazole 40 mg once daily. Aspirin was on hold in the hospital. She Was advised to follow-up with preventative maintenance technician closely after discharge as an outpatient. 2. Bri esophagitis Patient underwent urgent endoscopy given her acute on chronic anemia with hemoglobin 6.3. She was found to have Bri esophagitis on endoscopy. Patient also reported odynophagia sometimes. Fungal infection most likely from prednisone use. She received fluconazole 200 mg once and then she was started on fluconazole 100 mg daily for the next 2 weeks. 3. Neutropenia WBC count went down to as low as 1.3. Absolute neutrophil count 426. Oncology consult was placed in regarding management of neutropenia. Given her myelodysplastic disease neupogen is not recommended. However follow-up WBC remained stable at 2.2. Lupus continued hydroxychloroquine and prednisone Hyperlipidemia continued Lipitor Myelodysplastic [id number] with Dr. Gibbons as an outpatient COPD not on home oxygen Full code DVT prophylaxis alps given GI bleed Regular diet Pain pathway Allergies: Coded Allergies: NO KNOWN ALLERGIES (06/06/15) Significant Procedures: Medical History: unchanged Mental Status: alert/oriented Heart/Lung Eval Prior to Sedation: within normal limits Candidate for Sedation? Yes Procedure Date: 07/02/17 Procedure Type: EGD w/biopsy Home School Teacher: Steph Boston MD ASA Classification: III Indications: 1. Acute Drop in Hemoglobin and Hematocrit 2. Melena 3. Light-headedness Instrument: diagnostic gastroscope Meds Received: MAC Patient's Tolerance: good Complications: none Extent Reached: second part of duodenum Procedure: Note: Informed consent was obtained prior to procedure. Risks and benefits of procedure were discussed with patient. Potential complications discussed included perforation, bleeding, abdominal pain, and adverse reaction to medications. It was explained that iany or all of these complications could result in the need for extended hospitalization, emergency surgery, transfusion of packed red blood cells (with the risk of HIV or hepatitis virus), intubation with mechanical ventilation, and possible need for antibiotics. It was further explained that an existing tumor polyp or mucosal abnormality might not be identified at the time of the procedure thus resulting in a missed opportunity for early diagnosis and treatment of a gastrointestinal malignancy or disease with possible interval development of a gastrointestinal cancer or other disease with possible worsening of clinical condition in the interval between endoscopies. It was also discussed that complications are not limited to those listed above. Possible alternatives to endoscopic treatment or evaluation were discussed. All questions were answered. Continuous EKG and blood pressure monitors were attached. Supplemental oxygen was provided with O2 Sat monitoring. Patient was placed in the left lateral decubitus position. A surgical timeout was performed. All persons in the room were identified. All concerns were expressed and answered. A bite block was placed in the mouth and sedation was administered by anesthesia and titrated to comfort prior to starting the procedure. The Olympus upper endoscope was advanced under direct vision to the level of the third portion of the duodenum. Esophagus: The esophagus had a normal mucosal vascular pattern throughout its entirety. The GE junction was identified and was normal. The Z line was located at 35 cm from the incisors and was nondisplaced. At the GE junction and throughout the entire esophagus there were tenacious heaped up white plaques/Mt. was suggestive of Candidal plaques. Brushing was obtained from the distal esophagus. Biopsy also was obtained from the distal esophagus to rule out underlying inflammatory changes. There was a zewho-hp-mmdion sized hiatal hernia noted. Stomach: The stomach had a normal mucosal and vascular pattern throughout its entirety. Retroflexed view of the cardiofundic region revealed a normal mucosal and vascular pattern. There were normal rugae and normal distensibility. There is a grdhz-lu-xdshqr sized hiatal hernia noted. There were no Bart's erosions. The pylorus was patent and easily intubated. Biopsies were obtained from the antrum, angularis, gastric body and lesser curvature to rule out H. Pylori. Duodenum: The duodenum was fully examined from bulb down to the third portion. There was a normal mucosal vascular pattern throughout. Biopsies were obtained from D1, D2 and the duodenal bulb to rule out celiac disease. Over 6 separate bites were obtained. With the endoscope in the forward-viewing position, it was slowly withdrawn and all areas were re-inspected and findings are as described previously. Patient tolerated the procedure well. EBL: Minimal Specimens Removed: 1. D1, D2 and the duodenal bulb to rule out celiac disease. 2. antrum, angularis, gastric body and lesser curvature to rule out H. Pylori. 3. Brushing to rule out bri esophagitis 4. Distal esophageal biopsy Findings: 1. Rnotv-vq-mjikgg sized hiatal hernia 2. Bri esophagitis Impression: 1. Robzi-fn-mshqli sized hiatal hernia 2. Bri esophagitis Pertinent Lab Results: FINDINGS: There is mild prominence of the central pulmonary vasculature suggestive of pulmonary vascular congestion but without evidence of dimitris pulmonary edema. The cardiac silhouette is probably within normal limits. No pleural effusion is noted. There is no evidence of pneumothorax. Bony remodeling of multiple of the lateral left ribs is consistent with old healed rib fractures, progressive by comparison with the previous study. IMPRESSION: Pulmonary vascular congestion without dimitris pulmonary edema. No pleural effusions are present. Disposition Summary Disposition Principal Diagnosis: Acute blood loss anemia Myelodysplastic syndrome Candidia esophagitis Additional Diagnosis: Neutropenia Discharge Disposition: home or self care Discharge Instructions General Discharge Information Code Status: Full Code Patient's Diet: As Tolerated Patient's Activity: As tolerated Follow-Up Instructions/Appts: Please follow-up with PCP in one week after discharge. Please follow-up with oncologist in one week after discharge. Please follow-up with preventative maintenance technician in 1 week after discharge Medications at Discharge Discharge Medications: Stop taking the following medications: Omeprazole Magnesium (Prilosec Otc) 20 MG TABLET. ORAL DAILY Continue taking these medications: Atorvastatin Calcium (Lipitor) 40 MG TABLET 1 Tablet ORAL DAILY Potassium Chloride (Potassium Chloride) 10 MEQ TABLET.ER 2 Tablet ORAL TWICE DAILY Hydroxychloroquine Sulfate (Hydroxychloroquine Sulfate) 200 MG TABLET 1 Tablet ORAL DAILY Qty = 60 Comments: Last Taken: 10/03/16 Time: 8 AM Prednisone (Prednisone) 5 MG TABLET 1 Tablet ORAL TWICE DAILY Qty = 100 Comments: Last Taken: 10/03/16 Time: 8 AM Cholecalciferol (Vitamin D3) (Vitamin D3) 400 UNIT TABLET 1 Tablet ORAL DAILY Comments: Last Taken: 10/03/16 Time: 8 AM Aspirin (Ecotrin*) 81 MG TABLET. 1 Tablet ORAL DAILY Comments: Last Taken: 10/03/16 Time: 8 AM Start taking the following new medications: Fluconazole (Diflucan) 100 MG TABLET 100 Milligram ORAL DAILY Qty = 12 No Refills Instructions: . Omeprazole (Omeprazole) 20 MG CAPSULE.DR 40 Milligram ORAL DAILY Qty = 30 No Refills Benzocaine/Menthol (Chloraseptic Sore Throat Lozng) 6 MG-10 MG LOZENGE 1 Lozenge ORAL EVERY 2 HOURS NEEDED as needed for Sore Throat Qty = 20 No Refills Copies To: Lauryn PROCTOR,[place] B[place]
[2017-07-03 14:19] VITALS: BP 128/52
[2017-07-03] MEDS ORDERED: DIFLUCAN100 M1 PO (15:43)
[2017-07-03] MEDS ORDERED: OMEPRAZOLE20 M2 PO (15:43)
--- NOTE | 2017-07-03 15:45 | Patient Discharge Instructions ---
Discharge Instructions General Discharge Information You were seen/treated for: Acute blood loss anemia Candidiasis esophagitis Neutropenia Special Instructions: Follow Up with PCP in one week after discharge. Follow-up with oncologist in one week after discharge Follow-up with franchise sales representative in 1 week after discharge Diet Continue normal diet: Yes Activity Full Activity/No Limits: Yes Acute Coronary Syndrome Inclusion Criteria At DC or during hospital stay patient has or had the following: ACS DIAGNOSIS No Discharge Core Measures Meds if any: Prescribed or Continued at Discharge ROSS/ARB if EF <40% No Meds if any: NOT Prescribed or Continued at Discharge Congestive Heart Failure Inclusion Criteria At DC or during hospital stay patient has or had the following: CHF DIAGNOSIS No Discharge Core Measures Meds if any: Prescribed or Continued at Discharge Meds if any: NOT Prescribed or Continued at Discharge Cerebrovascular accident Inclusion Criteria At DC or during hospital stay patient has or had the following: CVA/TIA Diagnosis No Discharge Core Measures Meds if any: Prescribed or Continued at Discharge Meds if any: NOT Prescribed or Continued at Discharge Venous thromboembolism Inclusion Criteria VTE Diagnosis No VTE Type NONE VTE Confirmed by (Test) NONE Discharge Core Measures - Per Current guidelines, there needs to be overlap - treatment for the first 5 days of Warfarin therapy. - If discharged on Warfarin prior to 5 days of - overlap therapy, the patient will need to be - assessed for post discharge needs including - *Post discharge parental anticoagulation - *Warfarin and/or parental anticoagulation education - *Follow up date to check INR post discharge At least 5 days overlap therapy as Inpatient No Meds if any: Prescribed or Continued at Discharge Note: Overlap Therapy is Warfarin and Anticoagulant Meds if any: NOT Prescribed or Continued at Discharge
--- NOTE | 2017-07-03 17:41 | PN- Gastroenterology ---
Assessment/Plan Assessment/Recommendations: ASSESSMENT: 1. Acute Drop in H/H 2. Black Stools. -- no signs of UGI Bleeding on EGD 3. Myelodysplastic Syndrome 4. SLE -- on prednisone and plaquenil RECOMMENDATIONS: 1. If negative would recommend outpatient video capsule endoscopy to r/o small bowel avm 2. Haptoglobin and LDH were not checked and likely of little utility now 3. Discussed with patient that she will need follow up with me as an outpatient for possible capsule endoscopy. She is not eager to have capsule endoscopy but is willing to consider it. Subjective Subjective: Patient denies melena nor bright red blood per rectum. No nausea, vomiting or abdominal pain. Review of Systems Constitutional: Reports: malaise, weakness. Gastrointestinal: Denies: no symptoms. Hematologic/Endocrine: Reports: bruising. Objective Vital Signs and I&Os Vital Signs Date Time Temp Pulse Resp B/P B/P Pulse O2 O2 Flow FiO2 Mean Ox Delivery Rate 07/03 1419 98.3 63 18 128/52 97 Room Air 07/03 0600 98.7 71 18 132/60 94 Nasal Cannula 07/03 0000 Nasal 1.0L Cannula 07/02 2233 98.5 68 20 128/58 95 Nasal Cannula 07/02 1817 96 Nasal 1.0L Cannula Intake & Output 07/03 1600 07/03 0400 07/02 1600 07/02 0400 07/01 1600 07/01 0400 Intake Total 480 451 0 Output Total 350 250 Balance 130 201 0 Intake, Blood 1 Product Intake, IV 50 Intake, Oral 480 400 0 Output, Urine 350 250 Patient 94 lb 0.01 oz 93 lb Weight Weight Reported by Patient Reported by Patient Measurement Method Physical Exam General Appearance: no apparent distress, alert, awake Head: normal appearance Respiratory: normal breath sounds, no respiratory distress, lungs clear Cardiovascular: regular rate/rhythm Abdomen: normal bowel sounds, soft, non-tender, no organomegaly Neurologic/Psychiatric: awake, alert, oriented x 3 Skin: intact, normal color, warm/dry Current Medications: Current Medications Sig/Zeb Start time Last Medication Dose Route Stop Time Status Admin Acetaminophen 650 MG Q6P PRN 07/02 1530 AC PO Acetaminophen 1,000 MG Q6P PRN 07/02 1530 AC IV Atorvastatin Calcium 40 MG DAILY 07/02 1534 AC 07/03 PO 0955 Benzocaine/Menthol 1 EVANGELIST Q2P PRN 07/02 2115 AC 07/03 PO 1432 Cholecalciferol 400 IU DAILY 07/02 1534 AC 07/03 PO 0957 Fluconazole 100 MG DAILY 07/03 1000 AC 07/03 PO 0956 Hydroxychloroquine 200 MG DAILY 07/03 1000 AC 07/03 Sulfate PO 0957 Omeprazole 40 MG BID 07/03 1000 AC 07/03 PO 1432 Pantoprazole Sodium 40 MG BID 07/02 1533 DC 07/02 IV 2140 Patient Medication 1 ED ONE ONE 07/03 1100 DC Teaching ED 07/03 1101 Prednisone 5 MG BID 07/02 2200 AC 07/03 PO 0955 Results Pertinent Lab Results: Laboratory Tests 07/03 07/03 0825 0500 Chemistry Sodium (137 - 145 mmol/L) 140 Potassium (3.5 - 5.1 mmol/L) 4.1 Chloride (98 - 107 mmol/L) 101 Carbon Dioxide (22 - 30 mmol/L) 25 Anion Gap (5 - 16) 13 BUN (7 - 17 mg/dL) 29 H Creatinine (0.5 - 1.0 mg/dL) 0.6 Estimated GFR (>60 ml/min) > 60 BUN/Creatinine Ratio (7 - 25 %) 48.3 H Hematology CBC w Diff MAN DIFF ORDERED NO MAN DIFF REQ WBC (4.8 - 10.8 /CUMM) 1.9 L 1.3 *L RBC (4.20 - 5.40 /CUMM) 2.76 L 2.61 L Hgb (12.0 - 16.0 G/DL) 8.5 L 8.0 L Hct (37 - 47 %) 27.1 L 25.6 L MCV (81.0 - 99.0 FL) 98.2 97.9 MCH (27.0 - 31.0 PG) 31.0 30.6 RDW (11.5 - 14.5 %) 20.1 H 20.9 H Plt Count (130 - 400 /CUMM) 136 152 MPV (7.4 - 10.4 FL) 8.3 9.6 Gran % (42.2 - 75.2 %) 39.9 L 32.8 L Lymphocytes % (20.5 - 51.1 %) 59.1 H 65.6 H Monocytes % (1.7 - 9.3 %) 0.9 L 1.6 L Eosinophils % (0 - 5 %) 0 0 Basophils % (0.0 - 2.0 %) 0.1 0 Absolute Granulocytes (1.4 - 6.5 /CUMM) 0.8 L 0.4 L Segmented Neutrophils (42.2 - 75.2 %) 35 L Band Neutrophils (0.0 - 5.0 %) 2 Absolute Lymphocytes (1.2 - 3.4 /CUMM) 1.1 L 0.8 L Lymphocytes (20.5 - 51.1 %) 62 H Monocytes (1.7 - 9.3 %) 1 L Absolute Monocytes (0.10 - 0.60 /CUMM) 0 L 0 L Absolute Eosinophils (0.0 - 0.7 /CUMM) 0 0 Absolute Basophils (0.0 - 0.2 /CUMM) 0 0 Nucleated RBCs (0.0 - 0.0 /100WBC) 2 H Platelet Estimate (ADEQUATE) VERIFIED BY SMEAR Polychromasia 1+ Anisocytosis 2+ Target Cells PUBS MCHC (33.0 - 37.0 G/DL) 31.5 L 31.3 L 07/03 07/02 0030 1607 Hematology CBC w Diff MAN DIFF ORDERED WBC (4.8 - 10.8 /CUMM) 1.1 *L RBC (4.20 - 5.40 /CUMM) 2.54 L Hgb (12.0 - 16.0 G/DL) 7.7 L Hct (37 - 47 %) 24.5 L MCV (81.0 - 99.0 FL) 96.8 MCH (27.0 - 31.0 PG) 30.4 RDW (11.5 - 14.5 %) 20.0 H Plt Count (130 - 400 /CUMM) 141 MPV (7.4 - 10.4 FL) 8.8 Gran % (42.2 - 75.2 %) 27.0 L Lymphocytes % (20.5 - 51.1 %) 59.5 H Monocytes % (1.7 - 9.3 %) 13.5 H Eosinophils % (0 - 5 %) 0 Basophils % (0.0 - 2.0 %) 0 Absolute Granulocytes (1.4 - 6.5 /CUMM) 0.3 L Segmented Neutrophils (42.2 - 75.2 %) 27 L Absolute Lymphocytes (1.2 - 3.4 /CUMM) 0.7 L Lymphocytes (20.5 - 51.1 %) 63 H Monocytes (1.7 - 9.3 %) 10 H Absolute Monocytes (0.10 - 0.60 /CUMM) 0.2 Absolute Eosinophils (0.0 - 0.7 /CUMM) 0 Absolute Basophils (0.0 - 0.2 /CUMM) 0 Nucleated RBCs (0.0 - 0.0 /100WBC) 7 H Platelet Estimate (ADEQUATE) ADEQUATE Polychromasia 1+ Hypochromic-Microcytic 1+ Anisocytosis 1+ Macrocytic Cells FEW Target Cells FEW Stomatocytes FEW Bhargav Cells FEW PUBS MCHC (33.0 - 37.0 G/DL) 31.4 L Urines Urine Color (YEL,AMB,STR) YEL Urine Clarity (CLEAR) CLEAR Urine pH (5.0 - 8.0) 7.5 Ur Specific [place] (1.001 - 1.035) 1.020 Urine Protein (NEG,<30 MG/DL) NEG Urine Ketones (NEG) NEG Urine Nitrite (NEG) NEG Urine Bilirubin (NEG) NEG Urine Urobilinogen (0.1 - 1.0 EU/dl) 0.2 Ur Leukocyte Esterase (NEG) NEG Ur Microscopic EXAM NOT REQUIRED Urine Hemoglobin (NEG) NEG Urine Glucose (N MG/DL) NEG 07/02 07/02 07/02 1120 1056 1032 Chemistry Sodium (137 - 145 mmol/L) 142 Potassium (3.5 - 5.1 mmol/L) 4.4 Chloride (98 - 107 mmol/L) 101 Carbon Dioxide (22 - 30 mmol/L) 26 Anion Gap (5 - 16) 16 BUN (7 - 17 mg/dL) 23 H Creatinine (0.5 - 1.0 mg/dL) 0.8 Estimated GFR (>60 ml/min) > 60 BUN/Creatinine Ratio (7 - 25 %) 28.8 H Glucose (65 - 99 mg/dL) 90 Calcium (8.4 - 10.2 mg/dL) 9.0 Iron (37 - 170 ug/dL) 89 TIBC (265 - 497 ug/dL) 228 L Ferritin (11.1 - 264 ng/mL) 394.0 H Total Bilirubin (0.2 - 1.3 mg/dL) 0.5 AST (14 - 36 U/L) 37 H ALT (9 - 52 U/L) 28 Alkaline Phosphatase (<127 U/L) 97 Lactate Dehydrogenase (313 - 618 U/L) 680 H Troponin I (< 0.11 ng/ml) < 0.01 Cancelled Total Protein (6.3 - 8.2 g/dL) 8.7 H Albumin (3.5 - 5.0 g/dL) 3.6 Globulin (1.9 - 4.2 gm/dL) 5.1 H Albumin/Globulin Ratio (1.1 - 2.2 %) 0.7 L Vitamin B12 (239 - 931 pg/mL) 916 Folate (2.76 - 20.0 ng/mL) 19.6 Coagulation PT (9.4 - 12.5 SEC) 12.7 H INR (0.90 - 1.19) 1.21 H APTT (25 - 37 SEC) 25 Hematology CBC w Diff MAN DIFF ORDERED WBC (4.8 - 10.8 /CUMM) 3.2 L RBC (4.20 - 5.40 /CUMM) 2.09 L Hgb (12.0 - 16.0 G/DL) 6.3 *L Hct (37 - 47 %) 21.9 L MCV (81.0 - 99.0 FL) 104.7 H MCH (27.0 - 31.0 PG) 30.0 RDW (11.5 - 14.5 %) 18.5 H Plt Count (130 - 400 /CUMM) 189 MPV (7.4 - 10.4 FL) 8.8 Segmented Neutrophils (42.2 - 75.2 %) 40 L Band Neutrophils (0.0 - 5.0 %) 2 Lymphocytes (20.5 - 51.1 %) 48 Monocytes (1.7 - 9.3 %) 10 H Nucleated RBCs (0.0 - 0.0 /100WBC) 1 H Platelet Estimate (ADEQUATE) VERIFIED BY SMEAR Polychromasia 1+ Anisocytosis 1+ Macrocytic Cells 2+ PUBS MCHC (33.0 - 37.0 G/DL) 28.7 L Haptoglobin Pending
[2017-07-03 22:20] VITALS: BP 124/60
[2017-07-04 06:09] VITALS: BP 130/52
--- NOTE | 2017-07-04 06:32 | Cons- Hematology ---
See Addendum General Information and HPI Consulting Request Date of Consult: 07/04/17 Requested By: Steph Boston MD History of Present Illness: 86-year-old woman with known MDS treated with darbepoetin and prednisone 10 mg a day . Her MDS is characterized by anemia with modest leukopenia. She was admitted from my office with a dramatic drop in her hematocrit associated with black tarry stools for several days. She is now status post transfusion and upper endoscopy. She currently feels well back to her baseline. She specifically denied fever or chills or other infectious complaints. Allergies/Medications Allergies: Coded Allergies: NO KNOWN ALLERGIES (06/06/15) Home Med List: Aspirin (Ecotrin*) 81 MG TABLET.DR 1 TAB PO DAILY HEART HEALTH (Reported) Atorvastatin Calcium (Lipitor) 40 MG TABLET 1 TAB PO DAILY CHOLESTEROL ( Reported) Cholecalciferol (Vitamin D3) (Vitamin D3) 400 UNIT TABLET 1 TAB PO DAILY SUPPLEMENT (Reported) Fluconazole (Diflucan) 100 MG TABLET 100 MG PO DAILY bri esophagitis Hydroxychloroquine Sulfate 200 MG TABLET 1 TAB PO DAILY LUPUS (Reported) Omeprazole 20 MG CAPSULE.DR 40 MG PO BID gi bleed Omeprazole Magnesium (Prilosec Otc) 20 MG TABLET.DR 1 TAB PO DAILY GI ( Reported) Potassium Chloride 10 MEQ TABLET.ER 2 TAB PO BID SUPPLEMENT (Reported) Prednisone 5 MG TABLET 1 TAB PO BID LUPUS (Reported) Current Medications: Current Medications Sig/Zeb Start time Last Medication Dose Route Stop Time Status Admin Acetaminophen 650 MG Q6P PRN 07/02 1530 AC PO Acetaminophen 1,000 MG Q6P PRN 07/02 1530 AC IV Atorvastatin Calcium 40 MG DAILY 07/02 1534 AC 07/03 PO 0955 Benzocaine/Menthol 1 EVANGELIST Q2P PRN 07/02 2115 AC 07/03 PO 2158 Cholecalciferol 400 IU DAILY 07/02 1534 AC 07/03 PO 0957 Fluconazole 100 MG DAILY 07/03 1000 AC 07/03 PO 0956 Hydroxychloroquine 200 MG DAILY 07/03 1000 AC 07/03 Sulfate PO 0957 Omeprazole 40 MG BID 07/03 1000 AC 07/03 PO 2156 Pantoprazole Sodium 40 MG BID 07/02 1533 DC 07/02 IV 2140 Patient Medication 1 ED ONE ONE 07/03 1100 DC Teaching ED 07/03 1101 Prednisone 5 MG BID 07/02 2199 AC 07/03 PO 2156 Review of Systems Review of Systems: Patient denies headaches or dizziness. She denies shortness of breath cough chest pain or hemoptysis. Patient denies nausea vomiting or abdominal pain. Patient denies dysuria or hematuria. 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 if primary vs. met); non-cirrhotic.). , Age 60+ ; Cause: Postoperative complication. MOTHER, , Age 60+; Cause: Unknown cause of morbidity or mortality. SON, , Age 30-40; Cause: MVA (motor vehicle accident). Psychosocial History Where Do You Live? Home Who Do You Live With? spouse (in law apt next to dtr), self Services at Home: None Primary Language: Korean Smoking Status: Former Smoker ETOH Use: denies use Illicit Drug Use: denies illicit drug use Living Will? no Power of Histologist/HCP? no Functional Ability ADLs Independent: dressing, eating, toileting, bathing. Ambulation: cane IADLs Independent: shopping, housework, finances, food prep, telephone, transportation , medication admin. Exam & Diagnostic Data Vital Signs and I&O Vital Signs Date Time Temp Pulse Resp B/P B/P Pulse O2 O2 Flow FiO2 Mean Ox Delivery Rate 07/04 0609 97.7 64 20 130/52 91 Room Air 07/03 2220 98.0 61 19 124/60 91 Room Air 07/03 1419 98.3 63 18 128/52 97 Room Air Intake & Output 07/04 0800 07/04 0000 07/03 1600 Intake Total 240 240 240 Output Total 200 Balance 240 240 40 Intake, Oral 240 240 240 Output, Urine 200 Gen.: in NAD ENT: Sclera anicteric Chest: Normal respiratory effort, clear breath sounds Cor: RRR, no extra sounds Abdomen: Soft, bowel sounds present, no tenderness, no rebound Extremities: Without clubbing, cyanosis, or asymmetric edema Neurology: Alert and oriented 3, no gross deficit Skin: No rashes Last 48 Hours of Lab Results: Laboratory Tests 07/03 07/03 0825 0500 Chemistry Sodium (137 - 145 mmol/L) 140 Potassium (3.5 - 5.1 mmol/L) 4.1 Chloride (98 - 107 mmol/L) 101 Carbon Dioxide (22 - 30 mmol/L) 25 Anion Gap (5 - 16) 13 BUN (7 - 17 mg/dL) 29 H Creatinine (0.5 - 1.0 mg/dL) 0.6 Estimated GFR (>60 ml/min) > 60 BUN/Creatinine Ratio (7 - 25 %) 48.3 H Hematology CBC w Diff MAN DIFF ORDERED NO MAN DIFF REQ WBC (4.8 - 10.8 /CUMM) 1.9 L 1.3 *L RBC (4.20 - 5.40 /CUMM) 2.76 L 2.61 L Hgb (12.0 - 16.0 G/DL) 8.5 L 8.0 L Hct (37 - 47 %) 27.1 L 25.6 L MCV (81.0 - 99.0 FL) 98.2 97.9 MCH (27.0 - 31.0 PG) 31.0 30.6 RDW (11.5 - 14.5 %) 20.1 H 20.9 H Plt Count (130 - 400 /CUMM) 136 152 MPV (7.4 - 10.4 FL) 8.3 9.6 Gran % (42.2 - 75.2 %) 39.9 L 32.8 L Lymphocytes % (20.5 - 51.1 %) 59.1 H 65.6 H Monocytes % (1.7 - 9.3 %) 0.9 L 1.6 L Eosinophils % (0 - 5 %) 0 0 Basophils % (0.0 - 2.0 %) 0.1 0 Absolute Granulocytes (1.4 - 6.5 /CUMM) 0.8 L 0.4 L Segmented Neutrophils (42.2 - 75.2 %) 35 L Band Neutrophils (0.0 - 5.0 %) 2 Absolute Lymphocytes (1.2 - 3.4 /CUMM) 1.1 L 0.8 L Lymphocytes (20.5 - 51.1 %) 62 H Monocytes (1.7 - 9.3 %) 1 L Absolute Monocytes (0.10 - 0.60 /CUMM) 0 L 0 L Absolute Eosinophils (0.0 - 0.7 /CUMM) 0 0 Absolute Basophils (0.0 - 0.2 /CUMM) 0 0 Nucleated RBCs (0.0 - 0.0 /100WBC) 2 H Platelet Estimate (ADEQUATE) VERIFIED BY SMEAR Polychromasia 1+ Anisocytosis 2+ Target Cells PUBS MCHC (33.0 - 37.0 G/DL) 31.5 L 31.3 L 07/03 07/02 0030 1607 Hematology CBC w Diff MAN DIFF ORDERED WBC (4.8 - 10.8 /CUMM) 1.1 *L RBC (4.20 - 5.40 /CUMM) 2.54 L Hgb (12.0 - 16.0 G/DL) 7.7 L Hct (37 - 47 %) 24.5 L MCV (81.0 - 99.0 FL) 96.8 MCH (27.0 - 31.0 PG) 30.4 RDW (11.5 - 14.5 %) 20.0 H Plt Count (130 - 400 /CUMM) 141 MPV (7.4 - 10.4 FL) 8.8 Gran % (42.2 - 75.2 %) 27.0 L Lymphocytes % (20.5 - 51.1 %) 59.5 H Monocytes % (1.7 - 9.3 %) 13.5 H Eosinophils % (0 - 5 %) 0 Basophils % (0.0 - 2.0 %) 0 Absolute Granulocytes (1.4 - 6.5 /CUMM) 0.3 L Segmented Neutrophils (42.2 - 75.2 %) 27 L Absolute Lymphocytes (1.2 - 3.4 /CUMM) 0.7 L Lymphocytes (20.5 - 51.1 %) 63 H Monocytes (1.7 - 9.3 %) 10 H Absolute Monocytes (0.10 - 0.60 /CUMM) 0.2 Absolute Eosinophils (0.0 - 0.7 /CUMM) 0 Absolute Basophils (0.0 - 0.2 /CUMM) 0 Nucleated RBCs (0.0 - 0.0 /100WBC) 7 H Platelet Estimate (ADEQUATE) ADEQUATE Polychromasia 1+ Hypochromic-Microcytic 1+ Anisocytosis 1+ Macrocytic Cells FEW Target Cells FEW Stomatocytes FEW Bhargav Cells FEW PUBS MCHC (33.0 - 37.0 G/DL) 31.4 L Urines Urine Color (YEL,AMB,STR) YEL Urine Clarity (CLEAR) CLEAR Urine pH (5.0 - 8.0) 7.5 Ur Specific [place] (1.001 - 1.035) 1.020 Urine Protein (NEG,<30 MG/DL) NEG Urine Ketones (NEG) NEG Urine Nitrite (NEG) NEG Urine Bilirubin (NEG) NEG Urine Urobilinogen (0.1 - 1.0 EU/dl) 0.2 Ur Leukocyte Esterase (NEG) NEG Ur Microscopic EXAM NOT REQUIRED Urine Hemoglobin (NEG) NEG Urine Glucose (N MG/DL) NEG 07/02 07/02 07/02 1120 1056 1032 Chemistry Sodium (137 - 145 mmol/L) 142 Potassium (3.5 - 5.1 mmol/L) 4.4 Chloride (98 - 107 mmol/L) 101 Carbon Dioxide (22 - 30 mmol/L) 26 Anion Gap (5 - 16) 16 BUN (7 - 17 mg/dL) 23 H Creatinine (0.5 - 1.0 mg/dL) 0.8 Estimated GFR (>60 ml/min) > 60 BUN/Creatinine Ratio (7 - 25 %) 28.8 H Glucose (65 - 99 mg/dL) 90 Calcium (8.4 - 10.2 mg/dL) 9.0 Iron (37 - 170 ug/dL) 89 TIBC (265 - 497 ug/dL) 228 L Ferritin (11.1 - 264 ng/mL) 394.0 H Total Bilirubin (0.2 - 1.3 mg/dL) 0.5 AST (14 - 36 U/L) 37 H ALT (9 - 52 U/L) 28 Alkaline Phosphatase (<127 U/L) 97 Lactate Dehydrogenase (313 - 618 U/L) 680 H Troponin I (< 0.11 ng/ml) < 0.01 Cancelled Total Protein (6.3 - 8.2 g/dL) 8.7 H Albumin (3.5 - 5.0 g/dL) 3.6 Globulin (1.9 - 4.2 gm/dL) 5.1 H Albumin/Globulin Ratio (1.1 - 2.2 %) 0.7 L Vitamin B12 (239 - 931 pg/mL) 916 Folate (2.76 - 20.0 ng/mL) 19.6 Coagulation PT (9.4 - 12.5 SEC) 12.7 H INR (0.90 - 1.19) 1.21 H APTT (25 - 37 SEC) 25 Hematology CBC w Diff MAN DIFF ORDERED WBC (4.8 - 10.8 /CUMM) 3.2 L RBC (4.20 - 5.40 /CUMM) 2.09 L Hgb (12.0 - 16.0 G/DL) 6.3 *L Hct (37 - 47 %) 21.9 L MCV (81.0 - 99.0 FL) 104.7 H MCH (27.0 - 31.0 PG) 30.0 RDW (11.5 - 14.5 %) 18.5 H Plt Count (130 - 400 /CUMM) 189 MPV (7.4 - 10.4 FL) 8.8 Segmented Neutrophils (42.2 - 75.2 %) 40 L Band Neutrophils (0.0 - 5.0 %) 2 Lymphocytes (20.5 - 51.1 %) 48 Monocytes (1.7 - 9.3 %) 10 H Nucleated RBCs (0.0 - 0.0 /100WBC) 1 H Platelet Estimate (ADEQUATE) VERIFIED BY SMEAR Polychromasia 1+ Anisocytosis 1+ Macrocytic Cells 2+ PUBS MCHC (33.0 - 37.0 G/DL) 28.7 L Haptoglobin Pending Imaging/Other Studies: Chest x-ray-mild congestion Endoscopy-consistent with fungal esophagitis Assessment/Plan Assessment: 1. Significant anemia in the setting of MDS. Given the patient's clinical scenario, a superimposed GI bleed is most likely etiology of her current profound anemia. Given normal bilirubin, I would not suspect active hemolysis. Recommend-as per GI-PillCam study Follow-up my office in 2 weeks to continue darbepoetin Prednisone 10 milligrams orally per day 2. Esophagitis I have discussed this with the patient Recommendations: .. Consult Acknowledgment - Thank you for your consult request.
--- NOTE | 2017-07-04 07:43 | PN- Housestaff ---
See Addendum Subjective Follow-up For: Acute blood loss anemia Myelodysplastic syndrome Candidia esophagitis Complaints: no complaints Subjective: Patient was seen and examined this morning. She is alert awake and oriented to time place and person. No acute events noticed. She denied any abdominal pain, nausea, vomiting, black stools. She is feeling much better this morning. No new complaints. Vitals remained stable Review of Systems Constitutional: Reports: see HPI. Objective Last 24 Hrs of Vital Signs/I&O Vital Signs Date Time Temp Pulse Resp B/P B/P Pulse O2 O2 Flow FiO2 Mean Ox Delivery Rate 07/04 0609 97.7 64 20 130/52 91 Room Air 07/03 2220 98.0 61 19 124/60 91 Room Air 07/03 1419 98.3 63 18 128/52 97 Room Air Intake & Output 07/04 1600 07/04 0800 07/04 0000 Intake Total 240 240 Output Total Balance 240 240 Intake, Oral 240 240 Physical Exam General Appearance: Alert, Oriented X3, Cooperative, No Acute Distress Other Physical Findings: Skin ECHYMOTIC LESIONS EVERYWHERE Skin Temp/Moisture Exam: Warm/Dry HEENT Atraumatic, PERRLA, EOMI, Mucous Membr. moist/pink Neck Supple, No JVD Lymphatic Axillary nl, Cervical nl Cardiovascular Normal S1, Normal S2 Lungs Clear to Auscultation, Normal Air Movement Abdomen Normal Bowel Sounds, Soft, No Tenderness, No Hepatospenomegaly Neurological Normal Speech, Strength at 5/5 X4 Ext, Normal Tone Extremities No Clubbing, No Cyanosis, No Edema, Normal Pulses, No Tenderness/ Swelling Vascular Pulses Symmetrical Current Medications: Current Medications Sig/Zeb Start time Last Medication Dose Route Stop Time Status Admin Acetaminophen 650 MG Q6P PRN 07/02 1530 AC PO Acetaminophen 1,000 MG Q6P PRN 07/02 1530 AC IV Atorvastatin Calcium 40 MG DAILY 07/02 1534 AC 07/04 PO 1021 Benzocaine/Menthol 1 EVANGELIST Q2P PRN 07/02 2115 AC 07/04 PO 1020 Cholecalciferol 400 IU DAILY 07/02 1534 AC 07/04 PO 1021 Fluconazole 100 MG DAILY 07/03 1000 AC 07/04 PO 1020 Hydroxychloroquine 200 MG DAILY 07/03 1000 AC 07/03 Sulfate PO 0957 Omeprazole 40 MG BID 07/03 1000 AC 07/03 PO 2156 Patient Medication 1 ED ONE ONE 07/03 1100 DC Teaching ED 07/03 1101 Prednisone 5 MG BID 07/020 AC 07/04 PO 1020 Last 24 Hrs of Lab/Red Results Last 24 Hrs of Labs/Mics: Laboratory Tests 07/04/17 0728: CBC w Diff MAN DIFF ORDERED, RBC 2.50 L, MCV 98.2, MCH 30.8, MCHC 31.4 L, RDW 20.3 H, MPV 8.3, Gran % 41.0 L, Lymphocytes % 57.1 H, Monocytes % 1.4 L, Eosinophils % 0.2, Basophils % 0.3, Absolute Granulocytes 0.9 L, Segmented Neutrophils 33 L, Absolute Lymphocytes 1.2, Lymphocytes 62 H, Monocytes 5, Absolute Monocytes 0 L, Absolute Eosinophils 0, Absolute Basophils 0, Nucleated RBCs 1 H, Platelet Estimate ADEQUATE, Polychromasia 1+, Anisocytosis 1+, Macrocytic Cells FEW, Ovalocytes FEW Assessment/Plan Assessment: This is a 86-year-old female with past medical history significant for myelodysplastic syndrome, diagnosed from bone biopsy, on darbepoetin every 2 weeks, lupus on hydroxy chloroquine, prednisone, GERD, chronic anemia, COPD not on home oxygen, hypertension, degenerative joint disease, arthritis, history of falls, osteopenia presented from Dr. Gibbons's office for evaluation of low hemoglobin and black stools. Vitals at the time of presentation afebrile, heart rate 67, respiratory rate 20, blood pressure 130/60, saturating at 93 on room air. Pertinent labs- WBC 3.2, hemoglobin 6.3, hematocrit 21.9, platelets 189. BEP completely normal LFT normal Troponin 0.01 Chest x-ray findings suggestive of pulmonary vascular congestion. 1. Acute blood loss anemia/melena Patient was sent in by PCP for evaluation of black stools and low hemoglobin. She is hemodynamically stable with normal vitals. However she was found to have hemoglobin 6.3 and hematocrit 21.9, MCV 104.7, RDW 18.5. LFTs were normal. Bilirubin was normal. stool guaiac positive. She is admitted to general medicine for management of anemia. * Admited to general med floor * Monitor vitals closely * Acute on chronic anemia most possibly from worsening myelodysplastic syndrome, bone marrow suppression of RBC production. * Stool guaiac positive * Urgent endoscopy was done which showed Rosetta esophagitis. No source of bleeding was found. Patient needs outpatient PillCam study to evaluate for small bowel telangiectasia given history of lupus erythematosus * Type and screen done * 2 large IV bore lines * Guaiac all the stools * Provide adequate hydration * Transfused 2 units * serial hemoglobin-hemoglobin remained stable between 7-8. * Oral PPI omeprazole 40 mg daily * Appreciate tag press operator recommendations * Avoid nsaids 2. Rosetta esophagitis Patient underwent urgent endoscopy given her acute on chronic anemia with hemoglobin 6.3. She was found to have Rosetta esophagitis on endoscopy. Patient also reports odynophagia sometimes. * Fungal infection most likely from prednisone use * Fluconazole 200 mg once and then continue fluconazole 100 daily for 14 days- day2 3. Neutropenia WBC count went down to as low as 1.3. Absolute neutrophil count 426. Oncology consult was placed in regarding management of neutropenia. Given her myelodysplastic disease neupogen is not recommended. * Follow-up WBC count improved 2.2 * Follow-up oncology recommendations Lupus continue hydroxychloroquine and prednisone Hyperlipidemia continue Lipitor Myelodysplastic [id number] with Dr. Gibbons as an outpatient COPD not on home oxygen Full code DVT prophylaxis alps given GI bleed Regular diet Pain pathway Problem List: 1. MDS (myelodysplastic syndrome) 2. Symptomatic anemia Pain Ratin Pain Location: none Pain Goal: Remain pain free Pain Plan: none Tomorrow's Labs & Rationales: none Consulting Request: Consulting Specialty: Gastroenterology
[2017-07-04 08:25] LABS: ABSOLUTE BASOPHIL COUNT 0 /CUMM (0.0-0.2); ABSOLUTE EOSINOPHIL COUNT 0 /CUMM (0.0-0.7); ABSOLUTE GRANULOCYTE CT 0.9 /CUMM (1.4-6.5); ABSOLUTE LYMPH COUNT 1.2 /CUMM (1.2-3.4); ABSOLUTE MONOCYTE COUNT 0 /CUMM (0.10-0.60); BASOPHIL % 0.3 % (0.0-2.0); EOSINOPHIL % 0.2 % (0-5); HEMATOCRIT 24.6 % (37-47); MEAN CORPUSCULAR HGB 30.8 PG (27.0-31.0); MEAN CORPUSCULAR HGB CONC 31.4 G/DL (33.0-37.0); MEAN CORPUSCULAR VOLUME 98.2 FL (81.0-99.0); MEAN PLATELET VOLUME 8.3 FL (7.4-10.4); PLATELET COUNT 148 /CUMM (130-400); RBC DISTRIBUTION WIDTH 20.3 % (11.5-14.5); WHITE BLOOD CELL COUNT 2.2 /CUMM (4.8-10.8)
[2017-07-04] MEDS ORDERED: DIFLUCAN100 M1 PO (09:25)
[2017-07-04] MEDS ORDERED: OMEPRAZOLE20 M2 PO (09:25)
[2017-07-04] MEDS ORDERED: CHLORASEPTIC S1 EACH PO (09:42)
== END 2017-07-04 15:00 | DRG 378 ==
LOC: ERH 10:30 → ERHI 12:04 → 2NA 12:04 → ENRESERV 13:28 → 2NA 14:36 → ENPENDDIS 07-04 10:31 → ENTRNSPT 07-04 14:37 → 2NA 07-04 15:00 → EDTRNSPTSTS 07-04 15:13 → EDTRNSPT 07-04 15:13 → CMPTRNSPT 07-04 15:18
PROVIDERS: Hospitalist; Internal Medicine; Physician Assistant
PROC: 0DB68ZX Excision of Stomach, Via Natural or Artificial Opening Endoscopic, Diagnostic (ICD-10-PCS; principal; 2017-07-02)
PROC: 0DB38ZX Excision of Lower Esophagus, Via Natural or Artificial Opening Endoscopic, Diagnostic (ICD-10-PCS; 2017-07-02)
PROC: 0DB98ZX Excision of Duodenum, Via Natural or Artificial Opening Endoscopic, Diagnostic (ICD-10-PCS; 2017-07-02)
PROC: 30233N1 Transfusion of Nonautologous Red Blood Cells into Peripheral Vein, Percutaneous Approach (ICD-10-PCS; 2017-07-02)
DX: K92.2 Gastrointestinal hemorrhage, unspecified (principal); B37.81 Candidal esophagitis; M32.9 Systemic lupus erythematosus, unspecified; D70.9 Neutropenia, unspecified; J44.9 Chronic obstructive pulmonary disease, unspecified; D62 Acute posthemorrhagic anemia; D46.9 Myelodysplastic syndrome, unspecified; I10 Essential (primary) hypertension; K21.9 Gastro-esophageal reflux disease without esophagitis; K92.1 Melena; K44.9 Diaphragmatic hernia without obstruction or gangrene; M19.90 Unspecified osteoarthritis, unspecified site; Z91.81 History of falling; M85.80 Other specified disorders of bone density and structure, unspecified site; Z87.891 Personal history of nicotine dependence; R32 Unspecified urinary incontinence
CPT/HCPCS: 2NASP; 36415; 71045; 81003; 82436; 83010; 86920; 93005; 93010; 97116-GO; 97161-GP; 97530-GO; J1940; J7512; P9016

== ENCOUNTER 2017-07-29 12:27 | Inpatient (IN) | payer OTHER, MEDICARE ==
[~2017-07-29] VITALS: Ht 147.3 cm; Wt 38.3 kg
[~2017-07-29 12:27] MED LIST changes: +CHLORASEPTIC S1 EACH PO; +DIFLUCAN100 M1 PO; +OMEPRAZOLE20 M2 PO; +VITAMIN D32000 UNI1 PO; -VITAMIN D3400 UNI1 PO
--- NOTE | 2017-07-29 12:37 | ED DYSPNEA/ASTHMA COMPLAINT ---
History of Present Illness General Chief Complaint: General Adult Stated Complaint: BIBA ?PNA SEPSIS AND DIARRHEA Source: patient, family, old records, EMS Exam Limitations: no limitations Vital Signs & Intake/Output Vital Signs & Intake/Output Vital Signs Date Time Temp Pulse Resp B/P B/P Pulse O2 O2 Flow FiO2 Mean Ox Delivery Rate 07/29 1999 94 Nasal 6.0L Cannula 07/29 1814 98.0 98 25 84/44 91 Nasal 5.0L Cannula 07/29 1730 91 Nasal 6.0L Cannula 07/29 1725 98.0 94 24 104/58 93 Nasal 6.0L Cannula 07/29 1653 97.4 101 24 94/49 93 Nasal 6.0L Cannula 07/29 1627 97.6 105 24 99/52 93 Nasal 6.0L Cannula 07/29 1600 99.4 97 24 102/50 93 Nasal 6.0L Cannula 07/29 1539 99.4 96 24 96/56 91 Nasal 6.0L Cannula 07/29 1534 97 24 94/50 86 Nasal 6.0L Cannula 07/29 1532 99.5 106 28 95/50 77 Nasal 3.0L Cannula 07/29 1508 93 Venti Mask 35% 07/29 1503 99.5 108 28 93/44 93 Venti Mask 35% 07/29 1416 99.8 107 30 109/51 95 Venti Mask 35% 07/29 1345 110 30 97/50 95 Venti Mask 35% 07/29 1307 99 Venti Mask 35% 07/29 1300 102.4 109 30 116/53 100 Venti Mask 35% 07/29 1250 102.4 Allergies Coded Allergies: NO KNOWN ALLERGIES (06/06/15) Reconcile Medications Atorvastatin Calcium (Lipitor) 40 MG TABLET 1 TAB PO DAILY CHOLESTEROL ( Reported) Cholecalciferol (Vitamin D3) (Vitamin D3) 2,000 UNIT TABLET 1 TAB PO DAILY VITAMIN SUPPORT (Reported) Hydroxychloroquine Sulfate 200 MG TABLET 1 TAB PO DAILY LUPUS (Reported) Omeprazole Magnesium (Prilosec Otc) 20 MG TABLET.DR 1 20MG PO DAILY ACID REFLUX (Reported) Potassium Chloride 10 MEQ TABLET.ER 2 TAB PO BID SUPPLEMENT (Reported) Prednisone 5 MG TABLET 1 TAB PO BID LUPUS (Reported) Triage Nurses Notes Reviewed? yes Onset: Abrupt Duration: day(s): (1), constant Timing: recent history Severity: moderate, severe Associated Symptoms: denies HPI: 86 Year old female past medical history significant for myelodysplastic syndrome , diagnosed from bone biopsy, on darbepoetin every 2 weeks, lupus on hydroxy chloroquine, prednisone, GERD, chronic anemia, COPD not on home oxygen, hypertension, degenerative joint disease, arthritis, history of falls, osteopenia presents brought in by ambulance after patient was found to be lethargic and had several episodes of diarrhea today. The patient lives with her family who states she was in her normal state of health up until today. On arrival of EMS they were unable to obtain an oxygen saturation blood pressure was in the 70 systolic. Patient is alert and oriented 3 on arrival reporting to a cough and feeling short of breath. She denies chest pain abdominal pain nausea vomiting (Ezio Jernigan) ED Sepsis Exam Date of Focused Sepsis Exam: 07/29/17 Time of Focused Sepsis Exam: 1424 Sepsis Cardiac Exam: Tachycardia Sepsis Resp Exam: Ronchi Sepsis Cap Refill Exam: <2 Sec Sepsis Peripheral Pulse Exam: Normal Sepsis Peripheral Pulse Location: Radial Sepsis Skin Color Exam: Normal for Ethnicity Skin Temp/Moisture Exam: Warm/Dry (Ezio Jernigan) Past History Travel History Traveled to [place] past 21 day No Medical History Any Pertinent Medical History? see below for history Neurological: NONE EENT: NONE Cardiovascular: hypertension, hyperlipidemia Respiratory: COPD Gastrointestinal: GERD (dependent on OTC Prilosec xyrs) Hepatic: NONE Renal: urinary incontinence Musculoskeletal: degen joint disease, falls, SLE Psychiatric: NONE Endocrine: NONE, osteopenia Blood Disorders: anemia, MYELODYSPLASIA Cancer(s): NONE CARTOGRAPHIC TECHNICIAN/Reproductive: NONE History of MRSA: No History of VRE: No History of CDIFF: No Influenza Vaccine: 03/10/17 Surgical History Surgical History: SKIN GRAFT RIGHT LEG POST FALL Psychosocial History Who do you live with Significant Other Services at Home None What is your primary language Grenadian Family History Family History, If Any: FATHER (Hx "liver ca" (? if primary vs. met); non-cirrhotic.). , Age 60+ ; Cause: Postoperative complication. MOTHER, , Age 60+; Cause: Unknown cause of morbidity or mortality. SON, , Age 30-40; Cause: MVA (motor vehicle accident). Hx Contributory? No (Ezio Jernigan) Review of Systems Review of Systems Constitutional: Reports: see HPI. Comments Review of systems: via family, All other systems negative. Constitutional, chills fever, no malaise HEENT: no sore throat no congestion, no ear pain Cardiovascular: No chest pain , no palpitation Skin: no rashes, no change in skin Respiratory: dyspnea no cough no sputum GI: diarrhea : No dysuria No hematuria, no frequency Muscle skeletal: No joint pain, no back pain Neurologic: , no headache Heme/endocrine: No bruising Immunology: No lymphadenopathy (Ezio Jernigan) Physical Exam Physical Exam General Appearance: cachetic Respiratory: rhonchi Comments: Cachectic female in moderate distress HEENT: Normal EENT exam; PERRL, EOMI, HEAD is atraumatic. moist mucous membranes. Neck: Supple, normal range of motion Back: Full range of motion Cardiovascular: Tachycardic, regular rhythm no murmurs rubs or gallops, normal JVP Respiratory: respiratory distress. Patient speaking in 3-4 word sentences lung sounds are rhonchorous, No wheezing Abdomen: Soft, nontender nondistended, no appreciable organomegaly. Normal bowel sounds. No rebound/guarding,, No ascites. Rectal: Guaiac negative brown stool Extremity: No edema, the legs are ecchymotic, full range of motion of extremities, Neuro: Alert oriented x3, motor sensory normal, cranial nerves II through XII grossly intact. There were no obvious focal neurologic abnormalities. Skin: No appreciable rash on exposed skin, skin is warm and dry. Psych: Mood and affect is normal, memory and judgment is normal. Core Measures ACS in differential dx? Yes CVA/TIA Diagnosis No Sepsis Present: Yes Sepsis Focused Exam Completed? Yes (Ezio Jernigan) Progress Differential Diagnosis: AMI, CHF, COPD, pericarditis, pulmonary embolism, pneumonia, unstable angina, uti, sepsis, electrolyte abnoramlity, gi bleed, chronic anemia Plan of Care: Orders Procedure Date/time Status VANCOMYCIN (VANCOCIN) LEVEL 07/30 0500 Active ICU LAB BUNDLE 07/30 0500 Active CBC WITHOUT DIFFERENTIAL 07/30 0500 Active TROPONIN LEVEL 07/30 0100 Active TROPONIN LEVEL 07/30 0100 Active EKG 07/30 0100 Active EKG 07/30 0100 Active Nothing by Mouth 07/29 D Active LACTIC ACID 07/29 2200 Active TROPONIN LEVEL 07/29 1900 Complete LACTIC ACID 07/29 1900 Complete ICU LAB BUNDLE 07/29 1900 Complete EKG 07/29 1900 Active Wound Care/Dressing 07/29 1808 Complete Weight 07/29 1808 Complete VTE Mechanical Prophylaxis 07/29 1808 Complete Vital Signs 07/29 1808 Complete Turn and Reposition 07/29 1808 Complete Drains/Tubes 07/29 1808 Complete Teach/Educate 07/29 1808 Complete Skin Integrity Protocol 07/29 1808 Complete Skin/Pressure Ulcer Assess (Sk 07/29 1808 Complete Precautions 07/29 1808 Complete Pain Treatment and Response 07/29 1808 Complete Nutritional Intake, Monitor 07/29 1808 Complete Isolation 07/29 1808 Complete CIWA 07/29 1808 Complete Patient Care Conference 07/29 1808 Complete Activity/Ambulation 07/29 1808 Complete Drains/Tubes 07/29 1802 Active BLOOD PRODUCT PICKUP 07/29 1757 Active Add-on Test (ER Only) 07/29 1658 Active Add-on Test (ER Only) 07/29 1656 Active Wound Care/Dressing 07/29 1649 Active Weight 07/29 1649 Active VTE Mechanical Prophylaxis 07/29 1649 Active Vital Signs 07/29 1649 Active Turn and Reposition 07/29 1649 Active Drains/Tubes 07/29 1649 Complete Teach/Educate 07/29 1649 Active Skin Integrity Protocol 07/29 1649 Active Skin/Pressure Ulcer Assess (Sk 07/29 1649 Active Precautions 07/29 1649 Active Pain Treatment and Response 07/29 1649 Active Nutritional Intake, Monitor 07/29 1649 Active Isolation 07/29 1649 Active CIWA 07/29 1649 Complete Patient Care Conference 07/29 1649 Active Activity/Ambulation 07/29 1649 Active VRE ACTIVE SURVIELLANCE 07/29 1633 Active ACTIVE SURVEILLANCE NARES 07/29 1633 Active STREP PNEUMO URINARY ANTIGEN 07/29 1557 Complete LEGIONELLA URINARY ANTIGEN 07/29 1557 Complete C.DIFFICILE 07/29 1557 Active LACTIC ACID 07/29 1535 Complete TRC EVALUATION (GEN) 07/29 1531 Active OXYGEN SETUP (GEN) 07/29 1531 Active Pathway - chart 07/29 1531 Active House Staff 07/29 1531 Active Patient Data 07/29 1531 Active Code Status 07/29 1531 Active Admit to inpatient 07/29 1429 Active Telemetry/Breakdown Mill Operator 07/29 1422 Active BLOOD PRODUCT PICKUP 07/29 1422 Active Patient Data 07/29 1417 Active LEUKOCYTE POOR (PACKED CELLS) 07/29 1409 Active Add-on Test (ER Only) 07/29 1402 Active MAGNESIUM 07/29 1250 Complete FIBRINOGEN LEVEL 07/29 1250 Complete D-DIMER 07/29 1250 Complete CORTISOL PM 07/29 1250 Complete CREATINE PHOSPHOKINASE 07/29 1250 Complete BLOOD CULTURE 07/29 1242 Active PARTIAL THROMBOPLASTIN TIME 07/29 1241 Complete PROTHROMBIN TIME 07/29 1241 Complete TYPE & SCREEN (NOT X-MATCH) 07/29 1241 Active FingerStick- Glucose 07/29 1240 Complete ARTERIAL BLOOD GAS (GEN) 07/29 1235 Complete Muir, Insertion/Removal/Asses 07/29 1235 Active RAPID VIRAL INFLUENZA A 07/29 1235 Complete CULTURE,URINE 07/29 1235 Active VIRAL CULTURE 07/29 1235 Active URINALYSIS 07/29 1235 Complete TROPONIN LEVEL 07/29 1235 Complete LACTIC ACID 07/29 1235 Complete COMPREHENSIVE METABOLIC PANEL 07/29 1235 Complete CBC WITHOUT DIFFERENTIAL 07/29 1235 Complete B-TYPE NATRIURETIC PEP (BNP) 07/29 1235 Complete EKG 07/29 1235 Active TRC EVALUATION (GEN) 07/29 UNK Active Lab Add-on Test 07/29 UNK Active VTE Mechanical Prophylaxis 07/29 UNK Active Vital Signs 07/29 UNK Complete MISTAKE 07/29 UNK Active Intake & Output 07/29 UNK Active Hemoccult 07/29 UNK Active FingerStick- Glucose 07/29 UNK Active Current Medications Sig/Zeb Start time Last Medication Dose Stop Time Status Admin Ceftazidime 1,000 MG Q12 07/30 1000 AC (Fortaz) Methylprednisolone 40 MG Q12H 07/29 2000 AC 07/29 (Solumedrol) 202 Magnesium Sulfate 1 GM Q2H 07/29 1845 AC 07/29 (Mag Sulfate in D5) 07/29 2244 1946 Dextrose/Water 100 ML (D5W) Azithromycin 500 MG DAILY 07/29 1730 AC (Zithromax) Dextrose/Water 250 ML (D5W) Dextrose/Water 1,000 ML ONCE ONE 07/29 1400 AC 07/29 (D5W 1000) 07/29 2159 1358 Laboratory Tests 07/29/17 1852: Anion Gap 10, Estimated GFR 36 L, Glucose 95, Lactic Acid 2.6 H, Calcium 7.6 L, Phosphorus 4.2, Magnesium 1.4 L, Total Bilirubin 0.4, AST 152 H, ALT 50, Troponin I 0.28 *H, Albumin 2.4 L 07/29/17 1604: Lactic Acid 2.4 H 07/29/17 1255: Urine Color YEL, Urine Clarity CLDY H, Urine pH 7.0, Ur Specific [place] 1.020, Urine Protein 100 H, Urine Ketones NEG, Urine Nitrite NEG, Urine Bilirubin NEG, Urine Urobilinogen 0.2, Ur Leukocyte Esterase NEG, Ur Microscopic SEDIMENT EXAMINED, Urine RBC 5-10 H, Urine WBC 50-75 H, Ur Epithelial Cells FEW, Urine Bacteria PACKD H, Hyaline Casts 1-3 H, Granular Casts 1-3 H, Urine Mucus RARE , Urine Hemoglobin SMALL H, Urine Glucose NEG 07/29/17 1250: Anion Gap 7, Estimated GFR > 60, BUN/Creatinine Ratio 24.3, Glucose 43 *L, Lactic Acid 3.2 H, Calcium 4.8 *L, Magnesium 1.1 L, Total Bilirubin 0.2, AST 33, ALT 20, Alkaline Phosphatase 24, Creatine Kinase 622 H, Troponin I 0.11 *H, Sbs-C-Exgjdfuqcub Pept 4350 H, Total Protein 3.6 L, Albumin 1.3 L, Globulin 2.3, Albumin/Globulin Ratio 0.6 L, Cortisol PM Sample 6.2, PT 20.6 H, INR 1.98 H, APTT 44 H, Fibrinogen Activity 156 L, D-Dimer High Sensitivty 1188 H, CBC w Diff MAN DIFF ORDERED, RBC 1.88 L, MCV 96.6, MCH 29.3, MCHC 30.4 L, RDW 27.3 H, MPV 8.5, Segmented Neutrophils 25 L, Band Neutrophils 12 H, Lymphocytes 47 , Monocytes 16 H, Nucleated RBCs 1 H, Platelet Estimate DECREASED, Hypochromic -Microcytic 2+, Poikilocytosis 2+, Anisocytosis 2+ 07/29/17 1235: Virus Culture Pending 07/29/17 1230: pH 7.39, pCO2 37, pO2 395 H, HCO3 22, ABG O2 Sat (Measured) 99.0, Carboxyhemoglobin 0.3 L, O2 Concentration % 100%, O2 Delivery Method NRB, Phlebotomy Draw Site RIGHT BRACHIAL 07/29/17 0500: Random Vancomycin Cancelled Microbiology 07/29 1734 URINE ROUT: Streptococcus pneumoniae Antigen (M - CAN Cancelled: DUPLICATE ORDER 07/29 1730 UPPER RESP: Surveillance Culture - RECD 07/29 1730 GI: Surveillance Culture - RECD 07/29 1645 GI: Surveillance Culture - CAN Cancelled: Cancelled via OE: DUPLICATE ORDER 07/29 1557 STOOL: Clostridium difficile Toxin A & B - ORD 07/29 1335 BLOOD: Blood Culture - RECD 07/29 1315 BLOOD: Blood Culture - RECD 07/29 1255 URINE ROUT: Legionella Antigen - COMP 07/29 1255 URINE ROUT: Streptococcus pneumoniae Antigen (M - COMP 07/29 1255 URINE ROUT: Urine Culture - RECD 07/29 1252 NASOPHARYN: Influenza Virus A & B Rapid Smear - COMP Unable to obtain accurate pulse ox, ABG will be ordered Dr. Farr at bedside to evaluate PT and agrees with plan after reviewing the ABG patient was taken off high flow alert and oriented 3 mentating well at this time IV fluids running I discussed with the patient and her family at length all of her lab results today Dr. Farr at bedside to discuss plan of care she'll be admitted to the ICU. Dr. Peng spoke with Dr. Pope who is in the department to evaluate patient in consult EKG reveals sinus tach with no acute changes Patient's daughter Rosalinda consented for blood 2 units ordered cardiology and transportation associate at bedside Diagnostic Imaging: Viewed by Me: Radiology Read. Discussed w/RAD: Radiology Read. Radiology Impression: PATIENT: GRUPO HOANG PRESENT AGE : 86 PATIENT ACCOUNT NO: [id number] : 29 LOCATION: [facility] ORDERING PHYSICIAN: Ezio BILLS SERVICE DATE: 07/29/17-1234 EXAM TYPE: RAD - XRY- PORTABLE CHEST XRAY EXAMINATION: XR PORTABLE CHEST CLINICAL INFORMATION: Cough and fever COMPARISON: Multiple chest x-rays most recent prior dated 07/02/2017 TECHNIQUE: Portable frontal view of the chest was obtained. FINDINGS: Increasing haziness and prominence of the interstitial markings. No acute airspace opacity. Stable mild cardiomegaly. Mild central pulmonary vascular congestion. Pleural thickening or trace right effusion. Degenerative changes bilateral shoulders and thoracic spine. No acute osseous abnormality. IMPRESSION: Increasing haziness of the interstitial markings may represent interstitial edema. Differential possibility also includes viral or interstitial pneumonia. Pleural thickening or trace right effusion. DICTATED BY: Chano Wilson MD DATE/TIME DICTATED:07/29/171411 SUBSTATION ELECTRICIAN SUPERVISOR:CHUY DATE/TIME TRANSCRIBED:07/29/171411 CONFIDENTIAL, DO NOT COPY WITHOUT APPROPRIATE AUTHORIZATION. <Electronically signed in Other Vendor System> SIGNED BY: Chano Wilson MD 07/29/171416 Initial ED EKG: stach at 100, no acute st seg changes, normal axis Prior EKG: changed Rhythm Strip: sinus tachycardia (Ezio Jernigan) Departure Departure Time of Disposition: 1413 Disposition: STILL A PATIENT Condition: Guarded Clinical Impression Primary Impression: Sepsis Qualifiers: Sepsis type: sepsis due to unspecified organism Qualified Code: A41.9 - Sepsis, unspecified organism Secondary Impressions: Chronic anemia, Elevated troponin, Hypocalcemia, Hypokalemia, UTI (urinary tract infection) Referrals: Rio Combs MD (PCP/Family) Departure Forms: Customer Survey General Discharge Information Admission Note Spoke With: Marck Blackwell MD Documentation of Exam: Documentation of any treatments & extenuating circumstances including Concerns Regarding Discharge (functional status, medication knowledge or non-compliance, living conditions, etc.) that warrant an admission rather than observation: IV ABX, IV FLUIDS, ELECTROLYTE REPLACEMENT, TREND LABS, POSSIBLE IV PRESSORES. PREMATURE DISCHARGE WOULD BE MEDICALLY HARMFUL (Ezio Jernigan) PA/GUILLOTINE TRIMMER Co-Sign Statement Statement: ED Attending supervision documentation- [x] I saw and evaluated the patient. I have also reviewed all the pertinent lab results and diagnostic results. I agree with the findings and the plan of care as documented in the PA's/GUILLOTINE TRIMMER's documentation. [] I have reviewed the ED Record and agree with the PA's/GUILLOTINE TRIMMER's documentation. [] Additions or exceptions (if any) to the PAs/GUILLOTINE TRIMMER's note and plan are summarized below: [] 12:46 PM I've seen and personally examined the patient and I agree with the PAs evaluation. She is an 86-year-old female presents to the emergency department hypotensive and febrile. Her O2 sat on 100% nonrebreather is 91%. She is hypotensive. She is receiving IV fluids. Sepsis workup including 30 mL per KG and serum lactic acid level was ordered. She is also getting IV ceftriaxone and Fortaz. Cardiology consultation was obtained-the patient was seen by Dr. Pope. ICU consultation was obtained, the patient was seen and admitted by Dr. Blackwell. 07/29/17 2:30 PM Patient: Clear. She has positive troponin. She was seen and evaluated by Dr. Pope. No additional care. Accepted to the ICU by Dr. Blackwell. The rationale for admission his blood transfusions, IV fluids, intensive care level monitoring. (Crow Farr DO) Critical Care Note Critical Care Note Critical Care Time: 30-74 min (Ezio Jernigan)
[2017-07-29 13:17] LABS: MEAN CORPUSCULAR HGB 29.3 PG (27.0-31.0); MEAN CORPUSCULAR HGB CONC 30.4 G/DL (33.0-37.0); MEAN CORPUSCULAR VOLUME 96.6 FL (81.0-99.0); MEAN PLATELET VOLUME 8.5 FL (7.4-10.4); PLATELET COUNT 71 /CUMM (130-400); RBC DISTRIBUTION WIDTH 27.3 % (11.5-14.5); RED BLOOD CELL CT 1.88 /CUMM (4.20-5.40)
[2017-07-29 13:19] LABS: HEMATOCRIT 18.2 % (37-47); PT 20.6 SEC (9.4-12.5); PTT 44 SEC (25-37)
--- NOTE | 2017-07-29 14:17 | RADIOLOGY REPORT ---
EXAMINATION: XR PORTABLE CHEST CLINICAL INFORMATION: Cough and fever COMPARISON: Multiple chest x-rays most recent prior dated 07/02/2017 TECHNIQUE: Portable frontal view of the chest was obtained. FINDINGS: Increasing haziness and prominence of the interstitial markings. No acute airspace opacity. Stable mild cardiomegaly. Mild central pulmonary vascular congestion. Pleural thickening or trace right effusion. Degenerative changes bilateral shoulders and thoracic spine. No acute osseous abnormality. IMPRESSION: Increasing haziness of the interstitial markings may represent interstitial edema. Differential possibility also includes viral or interstitial pneumonia. Pleural thickening or trace right effusion.
--- NOTE | 2017-07-29 14:49 | History & Physical ---
Umari Hall 07/29/17 1448: General Information and HPI MD Statement: I have seen and personally examined GRUPO HOANG and documented this H&P. Source of Information: patient, family Exam Limitations: clinical condition History of Present Illness: This is a 86-year-old lady with past medical history significant for myelodysplastic syndrome and chronic anemia, lupus, GERD, COPD, hypertension who was brought to the hospital for further evaluation of diarrhea and weakness. Patient's family including her daughter Tarah are present at bedside who helped provide parts of history. The patient had flu-like symptoms since Saturday which were improving. Per family, she had a large amount of diarrhea this morning and felt weak after to the point that she was not able to sit up. The family became concerned and called an ambulance to bring the patient to the hospital. There was no blood noted in the stool. The patient reports having cough with sputum(is unsure of the color). The patient denies having any fever, chills, nausea, vomiting, dizziness, lightheadedness, abdominal pain, urinary symptoms. Regarding her myelodysplastic syndrome, the patient follows with Dr. Thompson, her last blood transfusion was 2 weeks ago. Allergies/Medications Allergies: Coded Allergies: NO KNOWN ALLERGIES (06/06/15) Home Med list Atorvastatin Calcium (Lipitor) 40 MG TABLET 1 TAB PO DAILY CHOLESTEROL ( Reported) Cholecalciferol (Vitamin D3) (Vitamin D3) 2,000 UNIT TABLET 1 TAB PO DAILY VITAMIN SUPPORT (Reported) Hydroxychloroquine Sulfate 200 MG TABLET 1 TAB PO DAILY LUPUS (Reported) Omeprazole Magnesium (Prilosec Otc) 20 MG TABLET.DR 1 20MG PO DAILY ACID REFLUX (Reported) Potassium Chloride 10 MEQ TABLET.ER 2 TAB PO BID SUPPLEMENT (Reported) Prednisone 5 MG TABLET 1 TAB PO BID LUPUS (Reported) Past History Travel History Traveled to [place] past 21 day No Medical History Neurological: NONE EENT: NONE Cardiovascular: hypertension, hyperlipidemia Respiratory: COPD Gastrointestinal: GERD (dependent on OTC Prilosec xyrs) Hepatic: NONE Renal: urinary incontinence Musculoskeletal: degen joint disease, falls, SLE Psychiatric: NONE Endocrine: NONE, osteopenia Blood Disorders: anemia, MYELODYSPLASIA Cancer(s): NONE CHIEF OF ANESTHESIOLOGY/Reproductive: NONE History of MRSA: No History of VRE: No History of CDIFF: No Influenza Vaccine: 04/10/17 Surgical History Surgical History: SKIN GRAFT RIGHT LEG POST FALL Past Family/Social History Family History Relations & Conditions if any FATHER (Hx "liver ca" (? if primary vs. met); non-cirrhotic.). , Age 60+ ; Cause: Postoperative complication. MOTHER, , Age 60+; Cause: Unknown cause of morbidity or mortality. SON, , Age 30-40; Cause: MVA (motor vehicle accident). Psychosocial History Who Do You Live With? spouse (in law apt next to dtr), self Services at Home: None Primary Language: Slovenian Living Will? no Power of Window Cutter/HCP? no Functional Ability ADLs Independent: dressing, eating, toileting, bathing. Ambulation: cane IADLs Independent: shopping, housework, finances, food prep, telephone, transportation , medication admin. Review of Systems Review of Systems Constitutional: Reports: weakness. Denies: chills, diaphoresis, fever, malaise, unexplained weight loss. EENTM: Reports: no symptoms. Cardiovascular: Denies: chest pain, edema, orthopena, palpitations, peripheral edema, syncope. Respiratory: Reports: no symptoms. GI: Reports: diarrhea. Denies: abdominal pain, bloating, constipation, distention, bowel incontinence, melena, nausea, bloody stool, changes in stool, vomiting, steatorrhea. Genitourinary: Denies: discharge, dysuria, frequency, hematuria, hesitation, nocturia, pain, urgency. Musculoskeletal: Reports: no symptoms. Skin: Reports: no symptoms. Neurological/Psychological: Reports: no symptoms. Hematologic/Endocrine: Reports: no symptoms. Immunologic/Allergic: Reports: no symptoms. All Other Systems: Reviewed and Negative Exam & Diagnostic Data Last 24 Hrs of Vital Signs/I&O Vital Signs Date Time Temp Pulse Resp B/P B/P Pulse O2 O2 Flow FiO2 Mean Ox Delivery Rate 07/29 1600 99.4 97 24 102/50 93 Nasal 6.0L Cannula 07/29 1539 99.4 96 24 96/56 91 Nasal 6.0L Cannula 07/29 1534 97 24 94/50 86 Nasal 6.0L Cannula 07/29 1532 99.5 106 28 95/50 77 Nasal 3.0L Cannula 07/29 1508 93 Venti Mask 35% 07/29 1503 99.5 108 28 93/44 93 Venti Mask 35% 07/29 1416 99.8 107 30 109/51 95 Venti Mask 35% 07/29 1345 110 30 97/50 95 Venti Mask 35% 07/29 1307 99 Venti Mask 35% 07/29 1300 102.4 109 30 116/53 100 Venti Mask 35% 07/29 1250 102.4 Intake & Output 07/29 1600 07/29 0800 07/29 0000 Intake Total 500 Output Total Balance 500 Intake, IV 500 Patient 89 lb 15.99 oz Weight Physical Exam General Appearance Alert, Oriented X3, Cooperative, Mild Distress Skin ecchymosis noted on bilateral lower extremities. Skin Temp/Moisture Exam: Warm/Dry Sepsis Skin Exam (color): Normal for Ethnicity HEENT Atraumatic, PERRLA, EOMI, Mucous Membr. moist/pink Neck Supple, No JVD, No thryomegaly, +2 Carotid Pulse wo Bruit, No LAD Lymphatic Axillary nl, Cervical nl Cardiovascular Normal S1, Normal S2, No Murmurs, Gallops, Rubs, tachycardic Lungs Expiratory wheezes, Decreased breath sounds Abdomen Normal Bowel Sounds, Soft, No Tenderness, No Hepatospenomegaly, No Masses Neurological Normal Speech, Strength at 5/5 X4 Ext, Sensation Intact Extremities BL LE edema, See skin exam Vascular Normal Pulses Last 24 Hrs of Labs/Red: Laboratory Tests 07/29/17 1604: Lactic Acid Pending 07/29/17 1255: Urine Color YEL, Urine Clarity CLDY H, Urine pH 7.0, Ur Specific [place] 1.020, Urine Protein 100 H, Urine Ketones NEG, Urine Nitrite NEG, Urine Bilirubin NEG, Urine Urobilinogen 0.2, Ur Leukocyte Esterase NEG, Ur Microscopic SEDIMENT EXAMINED, Urine RBC 5-10 H, Urine WBC 50-75 H, Ur Epithelial Cells FEW, Urine Bacteria PACKD H, Hyaline Casts 1-3 H, Granular Casts 1-3 H, Urine Mucus RARE , Urine Hemoglobin SMALL H, Urine Glucose NEG 07/29/17 1250: Anion Gap 7, Estimated GFR > 60, BUN/Creatinine Ratio 24.3, Glucose 43 *L, Lactic Acid 3.2 H, Calcium 4.8 *L, Total Bilirubin 0.2, AST 33, ALT 20, Alkaline Phosphatase 24, Troponin I 0.11 *H, Jrz-T-Cprmuwtonra Pept 4350 H, Total Protein 3.6 L, Albumin 1.3 L, Globulin 2.3, Albumin/Globulin Ratio 0.6 L, PT 20.6 H, INR 1.98 H, APTT 44 H, CBC w Diff MAN DIFF ORDERED, RBC 1.88 L , MCV 96.6, MCH 29.3, MCHC 30.4 L, RDW 27.3 H, MPV 8.5, Segmented Neutrophils 25 L, Band Neutrophils 12 H, Lymphocytes 47, Monocytes 16 H, Nucleated RBCs 1 H, Platelet Estimate DECREASED, Hypochromic-Microcytic 2+, Poikilocytosis 2+, Anisocytosis 2+ 07/29/17 1235: Virus Culture Pending 07/29/17 1230: pH 7.39, pCO2 37, pO2 395 H, HCO3 22, ABG O2 Sat (Measured) 99.0, Carboxyhemoglobin 0.3 L, O2 Concentration % 100%, O2 Delivery Method NRB, Phlebotomy Draw Site RIGHT BRACHIAL Microbiology 07/29 1557 URINE ROUT: Legionella Antigen - ORD 07/29 1557 URINE ROUT: Streptococcus pneumoniae Antigen (M - ORD 07/29 1557 STOOL: Clostridium difficile Toxin A & B - ORD 07/29 1335 BLOOD: Blood Culture - RECD 07/29 1315 BLOOD: Blood Culture - RECD 07/29 1255 URINE ROUT: Urine Culture - RECD 07/29 1252 NASOPHARYN: Influenza Virus A & B Rapid Smear - COMP Diagnostic Data EKG Results Sinus tachycardia, rate 114,? Supraventricular bigeminy Assessment/Plan Assessment: This is a 86-year-old lady with past medical history significant for myelodysplastic syndrome and chronic anemia, lupus, GERD, COPD, hypertension who was brought to the hospital for further evaluation of diarrhea and weakness. On route she hospital she was noted to be hypoxemic and was started on oxygen supplement. Assessment #Acute hypoxic respiratory failure #Sepsis with likely GI versus urinary source #Hypoglycemia: likely 2/2 poor PO intake #Elevated troponin #Electrolyte abnormalities #MDS with chronic anemia #History of COPD Plan * Admission to the ICU * Monitor vitals closely * Oxygen supplementation as needed * TRC/nebs * Check fingersticks * Monitor electrolytes and replete accordingly * Blood cultures, urine cultures, stool for C. difficile * Check urine for legionella and strep antigen * Flu swab has been negative * Check troponins until they peak, check serial EKGs * Trend lactic acid * Received IV vancomycin and IV ceftaz x1 in the ED; will consult ID for guidance for antibiotic therapy * Cardiology consult * Will keep the patient nothing by mouth at this point * DVT prophylaxis Alps given thrombocytopenia * The patient is full code As Ranked By This Provider Problem List: 1. Chronic anemia 2. Elevated troponin 3. Hypokalemia 4. Sepsis Qualifiers Sepsis type: sepsis due to unspecified organism Qualified Code: A41.9 - Sepsis, unspecified organism 5. MDS (myelodysplastic syndrome) Core Measures/Misc (02/24) Acute Coronary Syndrome ACS Diagnosis: No Congestive Heart Failure Congestive Heart Failure Diagnosis No Cerebrovascular Accident CVA/TIA Diagnosis: No VTE (View Protocol) VTE Risk Factors Age>40 No Mechanical VTE Prophylaxis d/t N/A MechProphylax Ordered No VTE Pharm Prophylaxis d/t Other (thrombocytopenia) Sepsis (View protocol) Sepsis Present: No Marck Blackwell MD 07/29/17 1520: Attending MD Review Statement Attending Statement Attending MD Statement: examined this patient, discuss w/resident/PA/ENG[employer] SAL[employer], agreed w/resident/PA/[employer], discussed with family, reviewed EMR data (avail), discussed with nursing, discussed with case mgmt, reviewed images, amended to note Attending Assessment/Plan: Impression 86 year old woman * hx of MDS/Anemia * acute hypoxemic respiratory failure * sepsis - likely urinary vs GI source * troponinemia Plan Respiratory -change to high flow o2 and titrate as needed to keep spo2 >92% ID -received vancomycin/ceftaz, panculture including sputum, stool studies -legionella and strep ag -tailor abx once cx return [facility] -cardiology consulted -f/u recommendations Heme -alert Dr. Thompson regarding pts admission -she has been ordered prbcs Metabolic -electrolyte including calcium repletion -repeat bmp/ca tonight -on steroids, if bp doesnt improve will consider stress dose, however stabilizing now Alimentary -NPO for now Neuro -alert, no acute issues Full Code discussed plan of care with patient and family, all questions answered TTS 45 min
--- NOTE | 2017-07-29 15:20 | Admission Certification ---
Admission Certification Certification Statement - As attending physician, I certify that at the time of - admission, based on clinical presentation, severity of - symptoms, need for further diagnostic testing and - therapeutic interventions, and risk of adverse outcomes - without in-hospital treatment, in my clinical assessment, - this patient requires an acute hospital stay for a minimum - of two nights or longer. I have also considered psychsocial - factors such as support system, advanced age, financial - issues, cognitive issues, and failed out-patient treatments, - past re-admission history, safety of patient, and lack of - compliance as applicable. Specific rationale supporting this admission is: anemia, respiratory distress/failure, sepsis, hypocalcemia, hypoglycemia, hypokalemia, ICU level of care.
--- NOTE | 2017-07-29 16:50 | Cons- Infect Disease ---
General Information and HPI Consulting Request Date of Consult: 07/29/17 Requested By: Marck Blackwell M.D. Reason for Consult: Rule out sepsis Source of Information: patient, family, old records History of Present Illness: This is an 86-year-old woman with a history of lupus, maintained on 10 mg of prednisone daily, COPD, hypertension and myelodysplastic syndrome, maintained on Erythropoietin and periodic red blood cell transfusions, hospitalized 4 weeks prior to admission with anemia and melanotic stools, found on upper endoscopy to have candidal esophagitis, treated with blood transfusions and discharged on Fluconazole to complete a two-week course of treatment, seen in the emergency room 2 weeks prior to admission for anemia, requiring 2 units of blood, admitted today after she was brought to the emergency room because of the sudden onset of diarrhea, lethargy and weakness and several days of a cough, reportedly productive of yellow sputum, and congestion with no documented fevers. She was reportedly found by EMS to be hypotensive, with a blood pressure in the 70s, and with an O2 sat also in the 70s. In the ER she was febrile to 102.4. She was guaiac negative. Laboratory data revealed a white blood cell count of 7000, with 25 segs and 12 bands, H&H 5.5 and 18, platelets 71,000, glucose 43, BUN/ creatinine 17 and 0.7, potassium 2.6, lactic acid 3.2, calcium 4.8, with normal liver enzymes, troponin 0.11, proBNP 4350, INR 1.98/PTT 44. Urinalysis 5-10 RBCs/50-75 WBCs. Chest x-ray revealed increased interstitial markings. A Muir catheter was inserted. She was given a half an amp of Dextrose, Lasix and IV fluids and is currently being transfused. She was also given one dose each of Vancomycin and Ceftazidime. At present she does not mild shortness of breath and weakness but does not report any specific pain. Allergies/Medications Allergies: Coded Allergies: NO KNOWN ALLERGIES (06/06/15) Home Med List: Atorvastatin Calcium (Lipitor) 40 MG TABLET 1 TAB PO DAILY CHOLESTEROL ( Reported) Cholecalciferol (Vitamin D3) (Vitamin D3) 2,000 UNIT TABLET 1 TAB PO DAILY VITAMIN SUPPORT (Reported) Hydroxychloroquine Sulfate 200 MG TABLET 1 TAB PO DAILY LUPUS (Reported) Omeprazole Magnesium (Prilosec Otc) 20 MG TABLET.DR 1 20MG PO DAILY ACID REFLUX (Reported) Potassium Chloride 10 MEQ TABLET.ER 2 TAB PO BID SUPPLEMENT (Reported) Prednisone 5 MG TABLET 1 TAB PO BID LUPUS (Reported) Past History Travel History Traveled to [place] past 21 day No Medical History Neurological: NONE EENT: NONE Cardiovascular: hypertension, hyperlipidemia Respiratory: COPD Gastrointestinal: GERD (dependent on OTC Prilosec xyrs) Hepatic: NONE Renal: urinary incontinence Musculoskeletal: degen joint disease, falls, SLE Psychiatric: NONE Endocrine: osteopenia Blood Disorders: anemia, MYELODYSPLASIA 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 if primary vs. met); non-cirrhotic.). , Age 60+ ; Cause: Postoperative complication. MOTHER, , Age 60+; Cause: Unknown cause of morbidity or mortality. SON, , Age 30-40; Cause: MVA (motor vehicle accident). Psychosocial History Who Do You Live With? spouse (in law apt next to dtr), self Services at Home: None Primary Language: [place] Living Will? no Power of Advertising Associate/HCP? no Functional Ability ADLs Independent: dressing, eating, toileting, bathing. Ambulation: cane IADLs Independent: shopping, housework, finances, food prep, telephone, transportation , medication admin. Review of Systems Review of Systems Cardiovascular: Denies: chest pain. Respiratory: Reports: cough, short of breath. GI: Denies: abdominal pain, nausea, vomiting. Genitourinary: Reports: no symptoms. Musculoskeletal: Denies: back pain, joint pain, muscle pain. All Other Systems: Reviewed and Negative Exam & Diagnostic Data Last 24 Hrs of Vital Signs/I&O Vital Signs Date Time Temp Pulse Resp B/P B/P Pulse O2 O2 Flow FiO2 Mean Ox Delivery Rate 07/29 1627 97.6 105 24 99/52 93 Nasal 6.0L Cannula 07/29 1600 99.4 97 24 102/50 93 Nasal 6.0L Cannula 07/29 1539 99.4 96 24 96/56 91 Nasal 6.0L Cannula 07/29 1534 97 24 94/50 86 Nasal 6.0L Cannula 07/29 1532 99.5 106 28 95/50 77 Nasal 3.0L Cannula 07/29 1508 93 Venti Mask 35% 07/29 1503 99.5 108 28 93/44 93 Venti Mask 35% 07/29 1416 99.8 107 30 109/51 95 Venti Mask 35% 07/29 1345 110 30 97/50 95 Venti Mask 35% 07/29 1307 99 Venti Mask 35% 07/29 1300 102.4 109 30 116/53 100 Venti Mask 35% 07/29 1250 102.4 Intake & Output 07/29 1600 07/29 0800 07/29 0000 Intake Total 500 Output Total Balance 500 Intake, IV 500 Patient 89 lb 15.99 oz Weight Physical Exam Other Physical Findings: MAXIMUM TEMPERATURE 102.4. She is weak appearing, lethargic but responsive, in mild respiratory distress, with high flow oxygen in place. Skin diffuse ecchymoses. HEENT dry oral mucosa. Neck is supple with shoddy bilateral cervical adenopathy. Lungs bilateral expiratory wheezes with scattered rhonchi. Heart regular rhythm with no murmur. Abdomen is soft, nontender with positive bowel sounds. Back no CVA tenderness. Extremities 1+ edema both lower extremities, with diffuse ecchymoses; pulses 1+ and equal. Neuro is without focality. Muir catheter is in place. Last 24 Hours of Lab Results: Laboratory Tests 07/29 07/29 1604 1255 Chemistry Lactic Acid Pending Urines Urine Color (YEL,AMB,STR) YEL Urine Clarity (CLEAR) CLDY H Urine pH (5.0 - 8.0) 7.0 Ur Specific [place] (1.001 - 1.035) 1.020 Urine Protein (NEG,<30 MG/DL) 100 H Urine Ketones (NEG) NEG Urine Nitrite (NEG) NEG Urine Bilirubin (NEG) NEG Urine Urobilinogen (0.1 - 1.0 EU/dl) 0.2 Ur Leukocyte Esterase (NEG) NEG Ur Microscopic SEDIMENT EXAMINED Urine RBC (0 - 5 /HPF) 5-10 H Urine WBC (0 - 2 /HPF) 50-75 H Ur Epithelial Cells (NONE,FEW) FEW Urine Bacteria (NEG/NONE) PACKD H Hyaline Casts (0/LPF) 1-3 H Granular Casts (NONE /LPF) 1-3 H Urine Mucus (FEW,NONE) RARE Urine Hemoglobin (NEG) SMALL H Urine Glucose (N MG/DL) NEG 07/29 07/29 1250 1235 Chemistry Sodium (137 - 145 mmol/L) 141 Potassium (3.5 - 5.1 mmol/L) 2.6 *L Chloride (98 - 107 mmol/L) 118 H Carbon Dioxide (22 - 30 mmol/L) 17 L Anion Gap (5 - 16) 7 BUN (7 - 17 mg/dL) 17 Creatinine (0.5 - 1.0 mg/dL) 0.7 Estimated GFR (>60 ml/min) > 60 BUN/Creatinine Ratio (7 - 25 %) 24.3 Glucose (65 - 99 mg/dL) 43 *L Lactic Acid (0.7 - 2.1 mmol/L) 3.2 H Calcium (8.4 - 10.2 mg/dL) 4.8 *L Total Bilirubin (0.2 - 1.3 mg/dL) 0.2 AST (14 - 36 U/L) 33 ALT (9 - 52 U/L) 20 Alkaline Phosphatase (<127 U/L) 24 Troponin I (< 0.11 ng/ml) 0.11 *H [id number] Pept (<125 pg/mL) 4350 H Total Protein (6.3 - 8.2 g/dL) 3.6 L Albumin (3.5 - 5.0 g/dL) 1.3 L Globulin (1.9 - 4.2 gm/dL) 2.3 Albumin/Globulin Ratio (1.1 - 2.2 %) 0.6 L Coagulation PT (9.4 - 12.5 SEC) 20.6 H INR (0.90 - 1.19) 1.98 H APTT (25 - 37 SEC) 44 H Hematology CBC w Diff MAN DIFF ORDERED WBC (4.8 - 10.8 /CUMM) 7.0 RBC (4.20 - 5.40 /CUMM) 1.88 L Hgb (12.0 - 16.0 G/DL) 5.5 *L Hct (37 - 47 %) 18.2 *L MCV (81.0 - 99.0 FL) 96.6 MCH (27.0 - 31.0 PG) 29.3 MCHC (33.0 - 37.0 G/DL) 30.4 L RDW (11.5 - 14.5 %) 27.3 H Plt Count (130 - 400 /CUMM) 71 L MPV (7.4 - 10.4 FL) 8.5 Segmented Neutrophils (42.2 - 75.2 %) 25 L Band Neutrophils (0.0 - 5.0 %) 12 H Lymphocytes (20.5 - 51.1 %) 47 Monocytes (1.7 - 9.3 %) 16 H Nucleated RBCs (0.0 - 0.0 /100WBC) 1 H Platelet Estimate (ADEQUATE) DECREASED Hypochromic-Microcytic 2+ Poikilocytosis 2+ Anisocytosis 2+ Serology Virus Culture Pending 07/29 1230 Blood Gas pH (7.35 - 7.45 PH) 7.39 pCO2 (35 - 45 TORR) 37 pO2 (80 - 100 TORR) 395 H HCO3 (21 - 28 MEQ/L) 22 ABG O2 Sat (Measured) (>96.0 %) 99.0 Carboxyhemoglobin (1.5 - 5.0 %) 0.3 L O2 Concentration % 100% O2 Delivery Method NRB Miscellaneous Phlebotomy Draw Site RIGHT BRACHIAL Last 24 Hours of Red Results: Blood cultures 2 July 29 pending Urine culture July 29 pending Rapid flu swab July 29 negative Diagnostic Data Recent Imaging Findings: Chest x-ray July 29 reveals bilateral increased interstitial markings Assessment/Plan Assessment/Plan Impression: This is an 86-year-old woman with a history of lupus, maintained on 10 mg of prednisone daily, COPD, hypertension and myelodysplastic syndrome, maintained on Erythropoietin and periodic red blood cell transfusions, admitted today because of the sudden onset of diarrhea, lethargy and weakness and several days of a cough, reportedly productive of yellow sputum, and congestion, found to be febrile with borderline hypotension, in mild respiratory distress, with multiple laboratory abnormalities, including hypoglycemia, hypokalemia, hypocalcemia, anemia, thrombocytopenia, bandemia, coagulopathy, elevated troponin and pyuria and with her chest x-ray revealing increased interstitial markings. Her clinical picture is consistent with sepsis. She has several possible sources including pneumonia, with a report of a productive cough prior to admission and increased markings on chest x-ray, the urinary tract, with pyuria, though she denies urinary symptoms, and the GI tract, with diarrhea, though her abdominal exam is benign and she has no history of recent antibiotics to suggest C. difficile. Her electrolyte abnormalities may in part be secondary to relative adrenal insufficiency and stress steroids should be considered. Her anemia may be multifactorial, as may her thrombocytopenia, given her history of MDS and SLE, though this, along with her prolonged coags, is suggestive of sepsis and possible DIC. Influenza is possible, though she has no headache, sore throat or body aches to suggest this diagnosis. Her elevated troponin is of unclear significance and she has apparently been evaluated by Cardiology. Her prognosis at this time appears quite guarded. Suggestion: 1. Would cover with stress steroids 2. Sputum for culture 3. Urine for strep pneumo antigen and Legionella antigen 4. Stool for C. difficile 5. Consider CT of the chest, abdomen and pelvis 6. Add Azithromycin 500 mg IV every 24 hours pending above 7. Vancomycin random level in the a.m. 8. Continue Ceftazidime 1 g IV every 12 hours pending above Consult Acknowledgment - Thank you for your consult request.
[2017-07-29 18:14] VITALS: BP 84/44
--- NOTE | 2017-07-29 21:03 | Cons- Cardiology ---
General Information and HPI Consulting Request Date of Consult: 07/29/17 Requested By: Marck Blackwell MD History of Present Illness: Ms. Aguirre is an 86 year old female with history of myelodysplastic syndrome, Lupus and COPD. She has had chronic anemia and recently had a blood transfusion. Over the past few days this patient has had shortness of breath which has progressed and is accompanied by a cough. She denies fever or chills. She was noted to be profoundly weak and was brought to the ER for further evaluation. The patient also had diarrhea. This patient denies chest pain, pressure, tightness, lightheadedness of palpitations. In the ER this patient was hypotensive and was noted to have guaiac positive stool with a profoundly low H/H. Platelets are low at 71 and her INR is elvated. She has an elevated creatinine, increased serum lactate level and mildly elevated troponin. Finally, this patient has a purulent urine. Allergies/Medications Allergies: Coded Allergies: NO KNOWN ALLERGIES (06/06/15) Home Med List: Atorvastatin Calcium (Lipitor) 40 MG TABLET 1 TAB PO DAILY CHOLESTEROL ( Reported) Cholecalciferol (Vitamin D3) (Vitamin D3) 2,000 UNIT TABLET 1 TAB PO DAILY VITAMIN SUPPORT (Reported) Hydroxychloroquine Sulfate 200 MG TABLET 1 TAB PO DAILY LUPUS (Reported) Omeprazole Magnesium (Prilosec Otc) 20 MG TABLET.DR 1 20MG PO DAILY ACID REFLUX (Reported) Potassium Chloride 10 MEQ TABLET.ER 2 TAB PO BID SUPPLEMENT (Reported) Prednisone 5 MG TABLET 1 TAB PO BID LUPUS (Reported) Review of Systems Review of Systems: A review of systems is unremarkable. 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 if primary vs. met); non-cirrhotic.). , Age 60+ ; Cause: Postoperative complication. MOTHER, , Age 60+; Cause: Unknown cause of morbidity or mortality. SON, , Age 30-40; Cause: MVA (motor vehicle accident). Psychosocial History Who Do You Live With? spouse (in law apt next to dtr), self Services at Home: None Primary Language: Sinhala Smoking Status: Former Smoker Living Will? no Power of Sales Incentive Analyst/HCP? no Functional Ability ADLs Independent: dressing, eating, toileting, bathing. Ambulation: cane IADLs Independent: shopping, housework, finances, food prep, telephone, transportation , medication admin. Exam & Diagnostic Data Vital Signs and I&O Vital Signs Date Time Temp Pulse Resp B/P B/P Pulse O2 O2 Flow FiO2 Mean Ox Delivery Rate 07/29 2000 94 Nasal 6.0L Cannula 07/29 1814 98.0 98 25 84/44 91 Nasal 5.0L Cannula 07/29 1730 91 Nasal 6.0L Cannula 07/29 1725 98.0 94 24 104/58 93 Nasal 6.0L Cannula 07/29 1653 97.4 101 24 94/49 93 Nasal 6.0L Cannula 07/29 1627 97.6 105 24 99/52 93 Nasal 6.0L Cannula 07/29 1600 99.4 97 24 102/50 93 Nasal 6.0L Cannula 07/29 1539 99.4 96 24 96/56 91 Nasal 6.0L Cannula 07/29 1534 97 24 94/50 86 Nasal 6.0L Cannula 07/29 1532 99.5 106 28 95/50 77 Nasal 3.0L Cannula 07/29 1508 93 Venti Mask 35% 07/29 1503 99.5 108 28 93/44 93 Venti Mask 35% 07/29 1416 99.8 107 30 109/51 95 Venti Mask 35% 07/29 1345 110 30 97/50 95 Venti Mask 35% 07/29 1307 99 Venti Mask 35% 07/29 1300 102.4 109 30 116/53 100 Venti Mask 35% 07/29 1250 102.4 Intake & Output 07/29 1600 07/29 0800 07/29 0000 07/28 1600 07/28 0800 07/28 0000 Intake Total 500 Output Total Balance 500 Intake, IV 500 Patient 89 lb 15.99 oz Weight Physical Exam: General: WD/WN male in NAD; alert and oriented x 3 HEENT: NC/AT, PERRL, EOMI Neck: no JVD, no carotid bruit Heart: RRR w/o murmur Lungs: crackles at the bases bilaterally Abdomen: soft, NT, +ve bowel sounds Extremities; no edema with venous stasis changes, legs are ecchymotic Diagnostic Data EKG Results sinus rhythm Assessment/Plan Assessment/Plan * This patient is profoundly anemic and in that setting has demand ischemia causing a type 2 RI. She denies chest discomfort and does not demonstrate any ischemic ST-T changes. In consideration of her borderline blood pressure the patient cannot tolerate anti-ischemic medications such as nitrate or beta blockers and due to her bleeding she cannot tolerate anticoagulation. Ensure adequate oxygenation and transfuse to an H/H of 04/06. Monitor on telemetry in the CCU and follow cardiac enzymes until peak. * Obtain an echocardiogram * This patient is hypotensive which may be related to sepsis, volume loss in the setting of bleeding or adrenal insufficiency due to being on prolonged steroid therapy. Volume can be repleted as the patient is transfused. Antibiotic therapy should be instituted to treat sepsis. Finally, this patient will need stress steroids. * This patient has fever and signs of sepsis. She has a purulent urine and a cough with abnormal chest X-ray. As such, she may have both a UTI and pneumonia. Although she has diarrhea it is likely related to blood in her bowels. Continue antibiotic therapy. * It should be noted that hydroxychloroquine is associated with diarrhea, bruising and anemia. Consult Acknowledgment - Thank you for your consult request.
[2017-07-30] VITALS: BP 110/50
[2017-07-30 00:59] LABS: ABSOLUTE BASOPHIL COUNT 0 /CUMM (0.0-0.2); ABSOLUTE EOSINOPHIL COUNT 0 /CUMM (0.0-0.7)
[2017-07-30 01:10] LABS: ABSOLUTE GRANULOCYTE CT 4.4 /CUMM (1.4-6.5); ABSOLUTE LYMPH COUNT 1.4 /CUMM (1.2-3.4); BASOPHIL % 0 % (0.0-2.0); EOSINOPHIL % 0.1 % (0-5); GRANULOCYTE % 40.7 % (42.2-75.2); MEAN CORPUSCULAR HGB 29.6 PG (27.0-31.0); MEAN CORPUSCULAR HGB CONC 31.3 G/DL (33.0-37.0); MEAN CORPUSCULAR VOLUME 94.5 FL (81.0-99.0); MEAN PLATELET VOLUME 9.1 FL (7.4-10.4); PLATELET COUNT 83 /CUMM (130-400); RBC DISTRIBUTION WIDTH 23.4 % (11.5-14.5)
[2017-07-30 01:14] LABS: RED BLOOD CELL CT 4.13 /CUMM (4.20-5.40); WHITE BLOOD CELL COUNT 10.9 /CUMM (4.8-10.8)
--- NOTE | 2017-07-30 03:00 | CT SCAN REPORT ---
EXAMINATION: CT CHEST WITHOUT CONTRAST CT ABDOMEN AND PELVIS WITHOUT CONTRAST CLINICAL INFORMATION: Sepsis. Hypotension. Leukocytosis. COMPARISON: 06/06/2015 TECHNIQUE: Multidetector volumetric imaging was performed through the chest, abdomen and pelvis without contrast. Sagittal and coronal reformatted images were obtained on the technologist's workstation. Axial MIP volume rendering provided. DLP: 318 mGy-cm. FINDINGS: CHEST: Lungs: The central airways are patent. Small bilateral pleural effusions. Left basilar consolidation with air bronchograms. Extensive centrilobular emphysema. Interlobular septal thickening. Consolidation in the left lower lobe limits evaluation of the previously seen nodule. Mediastinum: The heart is enlarged. Coronary artery calcifications are present. No pericardial effusion. Mediastinal lymphadenopathy is noted, appearing increased when compared to prior. For instance, there is a precarinal node which measures 1.2 x 1.1 cm. The main pulmonary arteries are enlarged, suggesting pulmonary artery hypertension. Chest Wall/Axilla: No lymphadenopathy. No chest wall mass. ABDOMEN/PELVIS: Liver, Gallbladder, Biliary Tree: The liver is normal in size, shape, and attenuation. No focal hepatic lesion or biliary ductal dilatation is present. Distended without wall thickening. Small gallstones layering in the gallbladder lumen. Pancreas: Unremarkable. Spleen: Unremarkable. Adrenal Glands: Unremarkable. Kidneys and Ureters: The kidneys are normal in size, shape, and attenuation. No hydronephrosis, hydroureter or calculi seen. No perinephric stranding. Bladder: Partially decompressed with a Muir catheter in place. Gastrointestinal Tract: Stomach is unremarkable. The small bowel is normal in caliber without obstruction. A majority of the colon is fluid-filled. No definite colonic wall thickening. No adjacent inflammation. No free air. No free fluid. Abdominal Wall: No hernia is demonstrated. Lymphovascular Structures: Lymph nodes: Normal. Vascular: Moderate atherosclerotic calcifications. Pelvic Viscera: A pessary is in place. No adnexal mass. Atrophic uterus. OSSEOUS STRUCTURES: No suspicious sclerotic or lytic bone lesions are identified. Degenerative changes of the spine. Multiple chronic left lateral rib fractures. IMPRESSION: 1. Small bilateral pleural effusions. Left lower lobe consolidation with air bronchograms is suspicious for pneumonia. 2. Mediastinal lymphadenopathy is likely reactive. 3. No acute findings in the abdomen or pelvis.
[2017-07-30 05:15] LABS: ABSOLUTE BASOPHIL COUNT 0 /CUMM (0.0-0.2); ABSOLUTE EOSINOPHIL COUNT 0 /CUMM (0.0-0.7); ABSOLUTE GRANULOCYTE CT 9.9 /CUMM (1.4-6.5); ABSOLUTE LYMPH COUNT 2.8 /CUMM (1.2-3.4); ABSOLUTE MONOCYTE COUNT 0 /CUMM (0.10-0.60); BASOPHIL % 0.1 % (0.0-2.0); EOSINOPHIL % 0.4 % (0-5); HEMATOCRIT 39.6 % (37-47); MEAN CORPUSCULAR HGB 29.9 PG (27.0-31.0); MEAN CORPUSCULAR HGB CONC 31.3 G/DL (33.0-37.0); MEAN CORPUSCULAR VOLUME 95.3 FL (81.0-99.0); MEAN PLATELET VOLUME 9.2 FL (7.4-10.4); PLATELET COUNT 99 /CUMM (130-400); RBC DISTRIBUTION WIDTH 25.2 % (11.5-14.5); RED BLOOD CELL CT 4.16 /CUMM (4.20-5.40); WHITE BLOOD CELL COUNT 12.8 /CUMM (4.8-10.8)
[2017-07-30 05:17] LABS: GRANULOCYTE % 77.2 % (42.2-75.2)
--- NOTE | 2017-07-30 07:27 | Cons- Hematology ---
See Addendum General Information and HPI Consulting Request Date of Consult: 07/30/17 Requested By: Marck Blackwell MD History of Present Illness: 86-year-old woman well known to me with myelodysplasia, as well as lupus, COPD. She has been treated with darbepoetin and prednisone 10 mg a day. Recent course has been complicated several rapid drops in hematocrit presumed secondary to GI bleeding. Hemolytic workup has been negative. Patient has a recent diagnosis of Rosetta esophagitis . Patient is now admitted with several days of fever diarrhea and malaise. Allergies/Medications Allergies: Coded Allergies: NO KNOWN ALLERGIES (06/06/15) Home Med List: Atorvastatin Calcium (Lipitor) 40 MG TABLET 1 TAB PO DAILY CHOLESTEROL ( Reported) Cholecalciferol (Vitamin D3) (Vitamin D3) 2,000 UNIT TABLET 1 TAB PO DAILY VITAMIN SUPPORT (Reported) Hydroxychloroquine Sulfate 200 MG TABLET 1 TAB PO DAILY LUPUS (Reported) Omeprazole Magnesium (Prilosec Otc) 20 MG TABLET.DR 1 20MG PO DAILY ACID REFLUX (Reported) Potassium Chloride 10 MEQ TABLET.ER 2 TAB PO BID SUPPLEMENT (Reported) Prednisone 5 MG TABLET 1 TAB PO BID LUPUS (Reported) Current Medications: Current Medications Sig/Zeb Start time Last Medication Dose Route Stop Time Status Admin Acetaminophen 1,000 MG ONCE ONE 07/29 1315 DC 07/29 N/A 1 UNIT IV 07/29 1329 1250 Acetaminophen 0 .STK-MED ONE 07/29 1239 DC IV Albuterol Sulfate 3 ML Q4P PRN 07/29 2200 AC INH Azithromycin 500 MG DAILY 07/29 1730 AC 07/29 Dextrose/Water 250 ML IV 2215 Calcium Gluconate 0 .STK-MED ONE 07/29 1456 DC IV Calcium Gluconate 1 GM ONCE ONE 07/29 1430 DC 07/29 Sodium Chloride 100 ML IV 07/29 1529 1500 Ceftazidime 1,000 MG Q12 07/30 1000 AC IV Ceftazidime 0 .STK-MED ONE 07/29 1316 DC .ROUTE Ceftazidime 1,000 MG ONCE ONE 07/29 1245 DC 07/29 IV 07/29 1246 1335 Dextrose 25 GM ONCE ONE 07/29 1345 DC 07/29 IV 07/29 1346 1340 Dextrose 1 SYR ONE ONE 07/29 1245 DC 07/29 IV 07/29 1246 1315 Dextrose/Water 1,000 ML ONCE ONE 07/29 1400 DC 07/29 IV 07/29 2159 1358 Furosemide 0 .STK-MED ONE 07/29 1436 DC IV Furosemide 20 MG ONCE ONE 07/29 1430 DC 07/29 IV 07/29 1431 1432 Magnesium Sulfate 1 GM Q2H 07/29 1845 DC 07/29 Dextrose/Water 100 ML IV 07/29 2244 2105 Methylprednisolone 40 MG Q12H 07/29 2000 AC 07/29 IV 2028 Ondansetron HCl 4 MG ONCE ONE 07/29 1330 DC 07/29 IV 07/29 1331 1327 Ondansetron HCl 0 .STK-MED ONE 07/29 1329 DC .ROUTE Potassium Chloride 10 MEQ ONCE ONE 07/29 1400 DC 07/29 IV 07/29 1401 1538 Potassium Chloride 10 MEQ ONCE ONE 07/29 1400 DC IV 07/29 1401 Sodium Chloride 1,000 ML Q13H 07/30 0230 AC 07/30 IV 07/30 1529 0300 Sodium Chloride 1,000 ML BOLUS ONE 07/29 1400 DC 07/29 IV 07/29 1459 1310 Sodium Chloride 1,000 ML BOLUS ONE 07/29 1315 DC 07/29 IV 07/29 1414 1250 Vancomycin HCl 0 .STK-MED ONE 07/29 1316 DC .ROUTE Vancomycin HCl 1,000 MG ONCE ONE 07/29 1245 DC 07/29 Dextrose/Water 250 ML IV 07/29 1344 1350 Review of Systems Review of Systems: Patient currently denies headaches or dizziness. She is mildly short of breath without hemoptysis or chest pain. She denied nausea abdominal pain but is had diarrhea. She denied blood loss. She denied dysuria or hematuria. 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 if primary vs. met); non-cirrhotic.). , Age 60+ ; Cause: Postoperative complication. MOTHER, , Age 60+; Cause: Unknown cause of morbidity or mortality. SON, , Age 30-40; Cause: MVA (motor vehicle accident). Psychosocial History Who Do You Live With? spouse (in law apt next to dtr), self Services at Home: None Primary Language: Khmer Smoking Status: Former Smoker Living Will? no Power of Industrial Retrofit Designer/HCP? no Functional Ability ADLs Independent: dressing, eating, toileting, bathing. Ambulation: cane IADLs Independent: shopping, housework, finances, food prep, telephone, transportation , medication admin. Exam & Diagnostic Data Vital Signs and I&O Vital Signs Date Time Temp Pulse Resp B/P B/P Pulse O2 O2 Flow FiO2 Mean Ox Delivery Rate 07/30 0400 94 Nasal 6.0L Cannula 07/30 0000 95 Nasal 6.0L Cannula 07/30 0000 99.3 106 24 110/50 95 Nasal 6.0L Cannula 07/29 2000 94 Nasal 6.0L Cannula 07/29 1845 93 Nasal 6.0L Cannula 07/29 1840 Nasal 6.0L Cannula 07/29 1814 98.0 98 25 84/44 91 Nasal 5.0L Cannula 07/29 1730 91 Nasal 6.0L Cannula 07/29 1725 98.0 94 24 104/58 93 Nasal 6.0L Cannula 07/29 1653 97.4 101 24 94/49 93 Nasal 6.0L Cannula 07/29 1627 97.6 105 24 99/52 93 Nasal 6.0L Cannula 07/29 1600 99.4 97 24 102/50 93 Nasal 6.0L Cannula 07/29 1539 99.4 96 24 96/56 91 Nasal 6.0L Cannula 07/29 1534 97 24 94/50 86 Nasal 6.0L Cannula 07/29 1532 99.5 106 28 95/50 77 Nasal 3.0L Cannula 07/29 1508 93 Venti Mask 35% 07/29 1503 99.5 108 28 93/44 93 Venti Mask 35% 07/29 1416 99.8 107 30 109/51 95 Venti Mask 35% 07/29 1345 110 30 97/50 95 Venti Mask 35% 07/29 1307 99 Venti Mask 35% 07/29 1300 102.4 109 30 116/53 100 Venti Mask 35% 07/29 1250 102.4 Intake & Output 07/30 0800 07/30 0000 07/29 1600 Intake Total 742 5975 500 Output Total 1025 370 Balance -283 5605 500 Intake, Blood 700 Product Intake, IV 742 5275 500 Number 1 Bowel Movements Output, Urine 1025 370 Patient 90 lb 89 lb 15.99 oz Weight Weight Bed scale Measurement Method Gen.: Ill-appearing ENT: Sclera anicteric Chest: Normal respiratory effort, clear breath sounds Cor: RRR, no extra sounds Abdomen: Soft, bowel sounds present, no tenderness, no rebound Extremities: Without clubbing, cyanosis, or asymmetric edema Neurology: Alert and oriented 3, no gross deficit Skin: No rashes Last 48 Hours of Lab Results: Laboratory Tests 07/30 07/30 07/30 0445 0445 0200 Chemistry Sodium (137 - 145 mmol/L) 133 L Potassium (3.5 - 5.1 mmol/L) 4.9 Chloride (98 - 107 mmol/L) 100 Carbon Dioxide (22 - 30 mmol/L) 21 L Anion Gap (5 - 16) 11 BUN (7 - 17 mg/dL) 25 H Creatinine (0.5 - 1.0 mg/dL) 1.2 H Estimated GFR (>60 ml/min) 42 L Glucose (65 - 99 mg/dL) 109 H Lactic Acid (0.7 - 2.1 mmol/L) 3.2 H 3.4 H Calcium (8.4 - 10.2 mg/dL) 7.5 L Phosphorus (2.5 - 4.5 mg/dL) 5.4 H Magnesium (1.6 - 2.3 mg/dL) 2.2 Total Bilirubin (0.2 - 1.3 mg/dL) 0.7 AST (14 - 36 U/L) 216 H ALT (9 - 52 U/L) 65 H Troponin I (< 0.11 ng/ml) 0.15 *H Albumin (3.5 - 5.0 g/dL) 2.6 L Hematology CBC w Diff NO MAN DIFF REQ WBC (4.8 - 10.8 /CUMM) 12.8 H RBC (4.20 - 5.40 /CUMM) 4.16 L Hgb (12.0 - 16.0 G/DL) 12.4 Hct (37 - 47 %) 39.6 MCV (81.0 - 99.0 FL) 95.3 MCH (27.0 - 31.0 PG) 29.9 MCHC (33.0 - 37.0 G/DL) 31.3 L RDW (11.5 - 14.5 %) 25.2 H Plt Count (130 - 400 /CUMM) 99 L MPV (7.4 - 10.4 FL) 9.2 Gran % (42.2 - 75.2 %) 77.2 H Lymphocytes % (20.5 - 51.1 %) 21.9 Monocytes % (1.7 - 9.3 %) 0.4 L Eosinophils % (0 - 5 %) 0.4 Basophils % (0.0 - 2.0 %) 0.1 Absolute Granulocytes (1.4 - 6.5 /CUMM) 9.9 H Absolute Lymphocytes (1.2 - 3.4 /CUMM) 2.8 Absolute Monocytes (0.10 - 0.60 /CUMM) 0 L Absolute Eosinophils (0.0 - 0.7 /CUMM) 0 Absolute Basophils (0.0 - 0.2 /CUMM) 0 Toxicology Random Vancomycin (ug/ml) 11.0 07/29 07/29 07/29 2345 2200 1852 Chemistry Sodium (137 - 145 mmol/L) 132 L Potassium (3.5 - 5.1 mmol/L) 3.9 Chloride (98 - 107 mmol/L) 101 Carbon Dioxide (22 - 30 mmol/L) 21 L Anion Gap (5 - 16) 10 BUN (7 - 17 mg/dL) 25 H Creatinine (0.5 - 1.0 mg/dL) 1.4 H Estimated GFR (>60 ml/min) 36 L Glucose (65 - 99 mg/dL) 95 Lactic Acid (0.7 - 2.1 mmol/L) 3.0 H 2.6 H Calcium (8.4 - 10.2 mg/dL) 7.6 L Phosphorus (2.5 - 4.5 mg/dL) 4.2 Magnesium (1.6 - 2.3 mg/dL) 1.4 L Total Bilirubin (0.2 - 1.3 mg/dL) 0.4 AST (14 - 36 U/L) 152 H ALT (9 - 52 U/L) 50 Troponin I (< 0.11 ng/ml) 0.28 *H Albumin (3.5 - 5.0 g/dL) 2.4 L Hematology CBC w Diff MAN DIFF ORDERED WBC (4.8 - 10.8 /CUMM) 10.9 H RBC (4.20 - 5.40 /CUMM) 4.13 L Hgb (12.0 - 16.0 G/DL) 12.2 Hct (37 - 47 %) 39.0 MCV (81.0 - 99.0 FL) 94.5 MCH (27.0 - 31.0 PG) 29.6 MCHC (33.0 - 37.0 G/DL) 31.3 L RDW (11.5 - 14.5 %) 23.4 H Plt Count (130 - 400 /CUMM) 83 L MPV (7.4 - 10.4 FL) 9.1 Gran % (42.2 - 75.2 %) 40.7 L Lymphocytes % (20.5 - 51.1 %) 12.8 L Monocytes % (1.7 - 9.3 %) 46.4 H Eosinophils % (0 - 5 %) 0.1 Basophils % (0.0 - 2.0 %) 0 Absolute Granulocytes (1.4 - 6.5 /CUMM) 4.4 Segmented Neutrophils (42.2 - 75.2 %) 44 Band Neutrophils (0.0 - 5.0 %) 11 H Absolute Lymphocytes (1.2 - 3.4 /CUMM) 1.4 Lymphocytes (20.5 - 51.1 %) 41 Monocytes (1.7 - 9.3 %) 4 Absolute Monocytes (0.10 - 0.60 /CUMM) 5.0 H Absolute Eosinophils (0.0 - 0.7 /CUMM) 0 Absolute Basophils (0.0 - 0.2 /CUMM) 0 Platelet Estimate (ADEQUATE) DECREASED Poikilocytosis 1+ Anisocytosis 1+ Macrocytic Cells 1+ Ovalocytes 1+ 07/29 07/29 1604 1255 Chemistry Lactic Acid (0.7 - 2.1 mmol/L) 2.4 H Urines Urine Color (YEL,AMB,STR) YEL Urine Clarity (CLEAR) CLDY H Urine pH (5.0 - 8.0) 7.0 Ur Specific [place] (1.001 - 1.035) 1.020 Urine Protein (NEG,<30 MG/DL) 100 H Urine Ketones (NEG) NEG Urine Nitrite (NEG) NEG Urine Bilirubin (NEG) NEG Urine Urobilinogen (0.1 - 1.0 EU/dl) 0.2 Ur Leukocyte Esterase (NEG) NEG Ur Microscopic SEDIMENT EXAMINED Urine RBC (0 - 5 /HPF) 5-10 H Urine WBC (0 - 2 /HPF) 50-75 H Ur Epithelial Cells (NONE,FEW) FEW Urine Bacteria (NEG/NONE) PACKD H Hyaline Casts (0/LPF) 1-3 H Granular Casts (NONE /LPF) 1-3 H Urine Mucus (FEW,NONE) RARE Urine Hemoglobin (NEG) SMALL H Urine Glucose (N MG/DL) NEG 07/29 07/29 1250 1235 Chemistry Sodium (137 - 145 mmol/L) 141 Potassium (3.5 - 5.1 mmol/L) 2.6 *L Chloride (98 - 107 mmol/L) 118 H Carbon Dioxide (22 - 30 mmol/L) 17 L Anion Gap (5 - 16) 7 BUN (7 - 17 mg/dL) 17 Creatinine (0.5 - 1.0 mg/dL) 0.7 Estimated GFR (>60 ml/min) > 60 BUN/Creatinine Ratio (7 - 25 %) 24.3 Glucose (65 - 99 mg/dL) 43 *L Lactic Acid (0.7 - 2.1 mmol/L) 3.2 H Calcium (8.4 - 10.2 mg/dL) 4.8 *L Magnesium (1.6 - 2.3 mg/dL) 1.1 L Total Bilirubin (0.2 - 1.3 mg/dL) 0.2 AST (14 - 36 U/L) 33 ALT (9 - 52 U/L) 20 Alkaline Phosphatase (<127 U/L) 24 Creatine Kinase (30 - 135 U/L) 622 H Troponin I (< 0.11 ng/ml) 0.11 *H Cxy-S-Wfdjooovizi Pept (<125 pg/mL) 4350 H Total Protein (6.3 - 8.2 g/dL) 3.6 L Albumin (3.5 - 5.0 g/dL) 1.3 L Globulin (1.9 - 4.2 gm/dL) 2.3 Albumin/Globulin Ratio (1.1 - 2.2 %) 0.6 L Cortisol PM Sample (1.7 - 14.1) 6.2 Coagulation PT (9.4 - 12.5 SEC) 20.6 H INR (0.90 - 1.19) 1.98 H APTT (25 - 37 SEC) 44 H Fibrinogen Activity (200 - 393 MG/DL) 156 L D-Dimer High Sensitivty (0 - 243 ng/ml) 1188 H Hematology CBC w Diff MAN DIFF ORDERED WBC (4.8 - 10.8 /CUMM) 7.0 RBC (4.20 - 5.40 /CUMM) 1.88 L Hgb (12.0 - 16.0 G/DL) 5.5 *L Hct (37 - 47 %) 18.2 *L MCV (81.0 - 99.0 FL) 96.6 MCH (27.0 - 31.0 PG) 29.3 MCHC (33.0 - 37.0 G/DL) 30.4 L RDW (11.5 - 14.5 %) 27.3 H Plt Count (130 - 400 /CUMM) 71 L MPV (7.4 - 10.4 FL) 8.5 Segmented Neutrophils (42.2 - 75.2 %) 25 L Band Neutrophils (0.0 - 5.0 %) 12 H Lymphocytes (20.5 - 51.1 %) 47 Monocytes (1.7 - 9.3 %) 16 H Nucleated RBCs (0.0 - 0.0 /100WBC) 1 H Platelet Estimate (ADEQUATE) DECREASED Hypochromic-Microcytic 2+ Poikilocytosis 2+ Anisocytosis 2+ Serology Virus Culture Pending 07/29 07/29 1230 0500 Blood Gas pH (7.35 - 7.45 PH) 7.39 pCO2 (35 - 45 TORR) 37 pO2 (80 - 100 TORR) 395 H HCO3 (21 - 28 MEQ/L) 22 ABG O2 Sat (Measured) (>96.0 %) 99.0 Carboxyhemoglobin (1.5 - 5.0 %) 0.3 L O2 Concentration % 100% O2 Delivery Method NRB Miscellaneous Phlebotomy Draw Site RIGHT BRACHIAL Toxicology Random Vancomycin Cancelled Nasal swab-negative for flu Imaging/Other Studies: CT-chest abdomen pelvis-question pneumonia Assessment/Plan Assessment: 1. Presumed sepsis-as per ID, stress dose steroids 2. Hematologic status-patient was admitted with profound anemia, hematocrit 18. After 2 units of red blood cells the patient's had a dramatic rise in her hematocrit. Patient's white blood count in the past is borderline but now is elevated with adequate neutrophils. Recommend- Follow CBC Transfuse accordingly No indication for g-csf 3. Coagulopathy-consistent with DIC Recommend- Would aim to keep fibrinogen greater than 200 with cryoprecipitate If active bleeding, FFP Monitor PT PTT fibrinogen Recommendations: .. Consult Acknowledgment - Thank you for your consult request.
[2017-07-30 08:00] VITALS: BP 110/60
--- NOTE | 2017-07-30 10:33 | Cons- CRCU ---
General Information and HPI Allergies/Medications Allergies: Coded Allergies: NO KNOWN ALLERGIES (06/06/15) Home Med List: Atorvastatin Calcium (Lipitor) 40 MG TABLET 1 TAB PO DAILY CHOLESTEROL ( Reported) Cholecalciferol (Vitamin D3) (Vitamin D3) 2,000 UNIT TABLET 1 TAB PO DAILY VITAMIN SUPPORT (Reported) Hydroxychloroquine Sulfate 200 MG TABLET 1 TAB PO DAILY LUPUS (Reported) Omeprazole Magnesium (Prilosec Otc) 20 MG TABLET.DR 1 20MG PO DAILY ACID REFLUX (Reported) Potassium Chloride 10 MEQ TABLET.ER 2 TAB PO BID SUPPLEMENT (Reported) Prednisone 5 MG TABLET 1 TAB PO BID LUPUS (Reported) Past History Travel History Traveled to [place] past 21 day No Medical History Neurological: NONE EENT: NONE Cardiovascular: hypertension, hyperlipidemia Respiratory: COPD Gastrointestinal: GERD (dependent on OTC Prilosec xyrs) Hepatic: NONE Renal: urinary incontinence Musculoskeletal: degen joint disease, falls, SLE Psychiatric: NONE Endocrine: osteopenia Blood Disorders: anemia, MYELODYSPLASIA Cancer(s): NONE 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 if primary vs. met); non-cirrhotic.). , Age 60+ ; Cause: Postoperative complication. MOTHER, , Age 60+; Cause: Unknown cause of morbidity or mortality. SON, , Age 30-40; Cause: MVA (motor vehicle accident). Psychosocial History Who Do You Live With? spouse (in law apt next to dtr), self Services at Home: None Primary Language: Serbian Smoking Status: Former Smoker Living Will? no Power of Neuroradiologist/HCP? no Functional Ability ADLs Independent: dressing, eating, toileting, bathing. Ambulation: cane IADLs Independent: shopping, housework, finances, food prep, telephone, transportation , medication admin. Assessment/Plan [facility] Consult Acknowledgment - Thank you for your consult request.
--- NOTE | 2017-07-30 10:34 | PN- Resident CRCU ---
Yakov PROCTOR,Prabha 07/30/17 1034: Subjective HPI/CRCU Issues: Septic shock 24 Hour Events: MAXIMUM TEMPERATURE 99.3. Heart rate between 90-106, normal sinus rhythm with PACs. Respiratory rate between 18-28. Blood pressure between 94/56-110/50. Patient is on 6 L nasal cannula satting between 90-97% 24 hour intake: 4467. 24 hour output: 1145. Pt has no complaints this AM. She is awake and alert on NC. Objective Vital Signs & I&O Last 8 Hrs of Vitals and I&O: Intake & Output 07/30 1600 Intake Total 700 Output Total 1100 Balance -400 Intake, IV 700 Number 0 Bowel Movements Output, Urine 1100 Exam General Appearance: well developed/nourished, alert, awake, mild distress Head: atraumatic, normal appearance Ears, Nose, Throat: normal pharynx Neck: normal inspection, supple Respiratory: wheezing Cardiovascular: regular rate/rhythm Gastrointestinal: soft, non-tender Extremities: pedal edema Current Medications: Current Medications Sig/Zeb Start time Last Medication Dose Route Stop Time Status Admin Albuterol Sulfate 3 ML Q4P PRN 07/29 2200 AC 07/30 INH 1341 Azithromycin 500 MG 2200 07/30 2200 AC Dextrose/Water 250 ML IV Azithromycin 500 MG DAILY 07/29 1730 DC 07/29 Dextrose/Water 250 ML IV 2215 Ceftazidime 1,000 MG Q12 07/30 1000 DC 07/30 IV 0946 Ceftriaxone Sodium 1,000 MG DAILY 07/30 1159 AC 07/30 IV 1337 Dextrose 12.5 GM ONCE ONE 07/30 1130 DC 07/30 IV 07/30 1131 1128 Dextrose/Sodium 1,000 ML Q13H 07/30 1345 DC 07/30 Chloride IV 1337 Dextrose/Water 1,000 ML ONCE ONE 07/29 1400 DC 07/29 IV 07/29 2159 1358 Furosemide 20 MG ONCE ONE 07/30 1715 DC 07/30 IV 07/30 1716 1714 Magnesium Sulfate 1 GM Q2H 07/29 1845 DC 07/29 Dextrose/Water 100 ML IV 07/29 2244 2105 Methylprednisolone 40 MG Q12H 07/29 2000 AC 07/30 IV 0808 Sodium Chloride 1,000 ML Q13H 07/30 0230 DC 07/30 IV 07/30 1529 0300 Impression/Plan Impression/Problem List Impression: This is a 86-year-old lady with past medical history significant for myelodysplastic syndrome and chronic anemia requiring blood transfusions, lupus on hydroxychloroquine and prednisone, GERD, hx of COPD, and hypertension who was brought to the hospital for further evaluation of diarrhea and weakness. She was foung to be in sepsis with profound anemia. Initially she was hypotensive but responded well to fluids and adjunctive theraphy. Her progress has been hindered today by worsening respiratory distress requiring hi-flow. PLAN: Respiratory: Acute hypoxic respiratory failure: Xray shows worsening inflitrates today. C/o edema vs PNA. She failed swallow eval, unsure if she has hx aspiration. However lugns sound much better today. She was very wheezy yesterday and only has some residual wheeze and mild crackles today. * Solumedrol IV 40 BID * Lasix 20 x1 with repeat if pt improves * Con't hi flow at 60 * HOB elevated * NEBS prn * If respiratory status worsens will do repeat lasix and get a gas History of COPD: * Nebs * Solumedrol as above Infectious disease: Sepsis: Pt has WBC 14 with 35 bands later this evening. Given that most pertinent finding on CT Chest abdomen and pelvis was possible consolidation in chest most likely source of infection is PNA, though she is growing GNR in urine. Pt does not have any urinary symptoms at this time. Note that pt was initially hypotensive yesterday but her BP is WNL today. Holding all anti- hypertensives. Lactic acidosis resolved. * Continue Vanco today * Trough level * Monitor berger cultures * Change Ceftaz to ceftriaxone today * Continue Azithromycin * Appreciate ID consult * Sputum cx Cardiovascular: Hypotension: Much better today when compared to yesterday. However, she is on steroids and was initially volume resuscitated after episodes of diarrhea. * Cont' monitor * Cardiac consult appreciated Heme oncology: MDS with chronic anemia: After 2u PRBC pt had hb 5.5--> 12.4. Unsure of the synergistic jump in hematocrit given only two units. Repeat values suggest that the jump in Hb is accurate. * Repeat CBC at 7 PM * Initially DIC panel positive for very low Fibrinogen; repeat shows elevated fibrinogen. * Appreciate Heme/Onc recs * Will give FFP if active bleeding Metabolic: Hypokalemia: * Will replete Alimentary: Failed swallow eval: * As such currently nothing by mouth * Very low rate of IVF had to be held due to c/o volume overload Transamanitis: Today AST 164 and ALT 62. Unsure if her coagulopathy is secondary to liver/DIC. Nephro: * No issues DVT prophylaxis ALPS for c/o bleeding Gi ppx on board FC NPO Problem List: 1. Chronic anemia 2. Elevated troponin 3. Sepsis Pain Ratin Tomorrow's Labs & Rationales: CBC ICU Plan DVT/Prophylaxis: mechanical Marck Blackwell MD 07/30/17 1038: Attending MD Review Statement Attending Sign Off Attending Cosign Statement: I have: examined this patient, reviewed [employer] EMR data, personally reviewd images, discussd w/resident/PA/[employer], discussed mgmt plan w/monique, discussed mgmt plan w/CM, discussed mgmt plan w/pt, agreed w/resident/PA/[employer], amended to note. Other Findings: Impression 86 year old woman hx of MDS/Anemia acute hypoxemic respiratory failure sepsis - likely urinary vs GI source troponinemia Plan Respiratory -titrate as needed to keep spo2 >92% ID -tailor abx once cx return -scan pending CVS -cardiology consulted -f/u recommendations Heme -f/u hematology recs -DIC, cryo considered pending labs -s/p prbcs Metabolic -electrolyte improved -cont solumedrol for now, reduce to prednisone to tomorrow Alimentary -NPO for now Neuro -alert, no acute issues Full Code TTS 35 min
[2017-07-30 10:46] LABS: PT 18.2 SEC (9.4-12.5); PTT 37 SEC (25-37)
--- NOTE | 2017-07-30 10:47 | PN- Infect Dx ---
Subjective Subjective: MAXIMUM TEMPERATURE 102.4 with temperatures decreased overnight on steroids. Her blood pressure has been borderline off pressors. She feels somewhat better with no complaints of shortness of breath but she does have a cough. She has had no further diarrhea. Objective Last 24 Hrs of Vital Signs/I&O Vital Signs Date Time Temp Pulse Resp B/P B/P Pulse O2 O2 Flow FiO2 Mean Ox Delivery Rate 07/30 0400 94 Nasal 6.0L Cannula 07/30 0000 95 Nasal 6.0L Cannula 07/30 0000 99.3 106 24 110/50 95 Nasal 6.0L Cannula 07/29 2000 94 Nasal 6.0L Cannula 07/29 1845 93 Nasal 6.0L Cannula 07/29 1840 Nasal 6.0L Cannula 07/29 1814 98.0 98 25 84/44 91 Nasal 5.0L Cannula 07/29 1730 91 Nasal 6.0L Cannula 07/29 1725 98.0 94 24 104/58 93 Nasal 6.0L Cannula 07/29 1653 97.4 101 24 94/49 93 Nasal 6.0L Cannula 07/29 1627 97.6 105 24 99/52 93 Nasal 6.0L Cannula 07/29 1600 99.4 97 24 102/50 93 Nasal 6.0L Cannula 07/29 1539 99.4 96 24 96/56 91 Nasal 6.0L Cannula 07/29 1534 97 24 94/50 86 Nasal 6.0L Cannula 07/29 1532 99.5 106 28 95/50 77 Nasal 3.0L Cannula 07/29 1508 93 Venti Mask 35% 07/29 1503 99.5 108 28 93/44 93 Venti Mask 35% 07/29 1416 99.8 107 30 109/51 95 Venti Mask 35% 07/29 1345 110 30 97/50 95 Venti Mask 35% 07/29 1307 99 Venti Mask 35% 07/29 1300 102.4 109 30 116/53 100 Venti Mask 35% 07/29 1250 102.4 Intake & Output 07/30 1600 07/30 0800 07/30 0000 Intake Total 742 5975 Output Total 1025 370 Balance -283 5605 Intake, Blood 700 Product Intake, IV 742 5275 Number 1 Bowel Movements Output, Urine 1025 370 Patient 90 lb Weight Weight Bed scale Measurement Method Physical Exam Other Physical Findings: She is awake and alert in no acute distress Lungs scattered rhonchi and crackles Heart regular rhythm with no murmur Abdomen is soft, nontender with positive bowel sounds Extremities ecchymoses on both lower extremities Muir catheter is in place Results Last 24 Hours of Lab Results: Laboratory Tests 07/30 07/30 07/30 07/30 07/30 1010 0940 0848 0730 0445 Chemistry Lactic Acid (0.7 - 2.1 mmol/L) Pending Cancelled 2.6 H 3.2 H Coagulation PT Pending INR Pending APTT Pending Fibrinogen Activity Pending 07/30 07/30 0445 0200 Chemistry Sodium (137 - 145 mmol/L) 133 L Potassium (3.5 - 5.1 mmol/L) 4.9 Chloride (98 - 107 mmol/L) 100 Carbon Dioxide (22 - 30 mmol/L) 21 L Anion Gap (5 - 16) 11 BUN (7 - 17 mg/dL) 25 H Creatinine (0.5 - 1.0 mg/dL) 1.2 H Estimated GFR (>60 ml/min) 42 L Glucose (65 - 99 mg/dL) 109 H Lactic Acid (0.7 - 2.1 mmol/L) 3.4 H Calcium (8.4 - 10.2 mg/dL) 7.5 L Phosphorus (2.5 - 4.5 mg/dL) 5.4 H Magnesium (1.6 - 2.3 mg/dL) 2.2 Total Bilirubin (0.2 - 1.3 mg/dL) 0.7 AST (14 - 36 U/L) 216 H ALT (9 - 52 U/L) 65 H Troponin I (< 0.11 ng/ml) 0.15 *H Albumin (3.5 - 5.0 g/dL) 2.6 L Hematology CBC w Diff NO MAN DIFF REQ WBC (4.8 - 10.8 /CUMM) 12.8 H RBC (4.20 - 5.40 /CUMM) 4.16 L Hgb (12.0 - 16.0 G/DL) 12.4 Hct (37 - 47 %) 39.6 MCV (81.0 - 99.0 FL) 95.3 MCH (27.0 - 31.0 PG) 29.9 MCHC (33.0 - 37.0 G/DL) 31.3 L RDW (11.5 - 14.5 %) 25.2 H Plt Count (130 - 400 /CUMM) 99 L MPV (7.4 - 10.4 FL) 9.2 Gran % (42.2 - 75.2 %) 77.2 H Lymphocytes % (20.5 - 51.1 %) 21.9 Monocytes % (1.7 - 9.3 %) 0.4 L Eosinophils % (0 - 5 %) 0.4 Basophils % (0.0 - 2.0 %) 0.1 Absolute Granulocytes (1.4 - 6.5 /CUMM) 9.9 H Absolute Lymphocytes (1.2 - 3.4 /CUMM) 2.8 Absolute Monocytes (0.10 - 0.60 /CUMM) 0 L Absolute Eosinophils (0.0 - 0.7 /CUMM) 0 Absolute Basophils (0.0 - 0.2 /CUMM) 0 Toxicology Random Vancomycin (ug/ml) 11.0 07/29 07/29 07/29 2345 2200 1852 Chemistry Sodium (137 - 145 mmol/L) 132 L Potassium (3.5 - 5.1 mmol/L) 3.9 Chloride (98 - 107 mmol/L) 101 Carbon Dioxide (22 - 30 mmol/L) 21 L Anion Gap (5 - 16) 10 BUN (7 - 17 mg/dL) 25 H Creatinine (0.5 - 1.0 mg/dL) 1.4 H Estimated GFR (>60 ml/min) 36 L Glucose (65 - 99 mg/dL) 95 Lactic Acid (0.7 - 2.1 mmol/L) 3.0 H 2.6 H Calcium (8.4 - 10.2 mg/dL) 7.6 L Phosphorus (2.5 - 4.5 mg/dL) 4.2 Magnesium (1.6 - 2.3 mg/dL) 1.4 L Total Bilirubin (0.2 - 1.3 mg/dL) 0.4 AST (14 - 36 U/L) 152 H ALT (9 - 52 U/L) 50 Troponin I (< 0.11 ng/ml) 0.28 *H Albumin (3.5 - 5.0 g/dL) 2.4 L Hematology CBC w Diff MAN DIFF ORDERED WBC (4.8 - 10.8 /CUMM) 10.9 H RBC (4.20 - 5.40 /CUMM) 4.13 L Hgb (12.0 - 16.0 G/DL) 12.2 Hct (37 - 47 %) 39.0 MCV (81.0 - 99.0 FL) 94.5 MCH (27.0 - 31.0 PG) 29.6 MCHC (33.0 - 37.0 G/DL) 31.3 L RDW (11.5 - 14.5 %) 23.4 H Plt Count (130 - 400 /CUMM) 83 L MPV (7.4 - 10.4 FL) 9.1 Gran % (42.2 - 75.2 %) 40.7 L Lymphocytes % (20.5 - 51.1 %) 12.8 L Monocytes % (1.7 - 9.3 %) 46.4 H Eosinophils % (0 - 5 %) 0.1 Basophils % (0.0 - 2.0 %) 0 Absolute Granulocytes (1.4 - 6.5 /CUMM) 4.4 Segmented Neutrophils (42.2 - 75.2 %) 44 Band Neutrophils (0.0 - 5.0 %) 11 H Absolute Lymphocytes (1.2 - 3.4 /CUMM) 1.4 Lymphocytes (20.5 - 51.1 %) 41 Monocytes (1.7 - 9.3 %) 4 Absolute Monocytes (0.10 - 0.60 /CUMM) 5.0 H Absolute Eosinophils (0.0 - 0.7 /CUMM) 0 Absolute Basophils (0.0 - 0.2 /CUMM) 0 Platelet Estimate (ADEQUATE) DECREASED Poikilocytosis 1+ Anisocytosis 1+ Macrocytic Cells 1+ Ovalocytes 1+ 07/29 07/29 1604 1255 Chemistry Lactic Acid (0.7 - 2.1 mmol/L) 2.4 H Urines Urine Color (YEL,AMB,STR) YEL Urine Clarity (CLEAR) CLDY H Urine pH (5.0 - 8.0) 7.0 Ur Specific [place] (1.001 - 1.035) 1.020 Urine Protein (NEG,<30 MG/DL) 100 H Urine Ketones (NEG) NEG Urine Nitrite (NEG) NEG Urine Bilirubin (NEG) NEG Urine Urobilinogen (0.1 - 1.0 EU/dl) 0.2 Ur Leukocyte Esterase (NEG) NEG Ur Microscopic SEDIMENT EXAMINED Urine RBC (0 - 5 /HPF) 5-10 H Urine WBC (0 - 2 /HPF) 50-75 H Ur Epithelial Cells (NONE,FEW) FEW Urine Bacteria (NEG/NONE) PACKD H Hyaline Casts (0/LPF) 1-3 H Granular Casts (NONE /LPF) 1-3 H Urine Mucus (FEW,NONE) RARE Urine Hemoglobin (NEG) SMALL H Urine Glucose (N MG/DL) NEG 07/29 07/29 1250 1235 Chemistry Sodium (137 - 145 mmol/L) 141 Potassium (3.5 - 5.1 mmol/L) 2.6 *L Chloride (98 - 107 mmol/L) 118 H Carbon Dioxide (22 - 30 mmol/L) 17 L Anion Gap (5 - 16) 7 BUN (7 - 17 mg/dL) 17 Creatinine (0.5 - 1.0 mg/dL) 0.7 Estimated GFR (>60 ml/min) > 60 BUN/Creatinine Ratio (7 - 25 %) 24.3 Glucose (65 - 99 mg/dL) 43 *L Lactic Acid (0.7 - 2.1 mmol/L) 3.2 H Calcium (8.4 - 10.2 mg/dL) 4.8 *L Magnesium (1.6 - 2.3 mg/dL) 1.1 L Total Bilirubin (0.2 - 1.3 mg/dL) 0.2 AST (14 - 36 U/L) 33 ALT (9 - 52 U/L) 20 Alkaline Phosphatase (<127 U/L) 24 Creatine Kinase (30 - 135 U/L) 622 H Troponin I (< 0.11 ng/ml) 0.11 *H Emo-F-Wztyrnmurvy Pept (<125 pg/mL) 4350 H Total Protein (6.3 - 8.2 g/dL) 3.6 L Albumin (3.5 - 5.0 g/dL) 1.3 L Globulin (1.9 - 4.2 gm/dL) 2.3 Albumin/Globulin Ratio (1.1 - 2.2 %) 0.6 L Cortisol PM Sample (1.7 - 14.1) 6.2 Coagulation PT (9.4 - 12.5 SEC) 20.6 H INR (0.90 - 1.19) 1.98 H APTT (25 - 37 SEC) 44 H Fibrinogen Activity (200 - 393 MG/DL) 156 L D-Dimer High Sensitivty (0 - 243 ng/ml) 1188 H Hematology CBC w Diff MAN DIFF ORDERED WBC (4.8 - 10.8 /CUMM) 7.0 RBC (4.20 - 5.40 /CUMM) 1.88 L Hgb (12.0 - 16.0 G/DL) 5.5 *L Hct (37 - 47 %) 18.2 *L MCV (81.0 - 99.0 FL) 96.6 MCH (27.0 - 31.0 PG) 29.3 MCHC (33.0 - 37.0 G/DL) 30.4 L RDW (11.5 - 14.5 %) 27.3 H Plt Count (130 - 400 /CUMM) 71 L MPV (7.4 - 10.4 FL) 8.5 Segmented Neutrophils (42.2 - 75.2 %) 25 L Band Neutrophils (0.0 - 5.0 %) 12 H Lymphocytes (20.5 - 51.1 %) 47 Monocytes (1.7 - 9.3 %) 16 H Nucleated RBCs (0.0 - 0.0 /100WBC) 1 H Platelet Estimate (ADEQUATE) DECREASED Hypochromic-Microcytic 2+ Poikilocytosis 2+ Anisocytosis 2+ Serology Virus Culture Pending 07/29 1230 Blood Gas pH (7.35 - 7.45 PH) 7.39 pCO2 (35 - 45 TORR) 37 pO2 (80 - 100 TORR) 395 H HCO3 (21 - 28 MEQ/L) 22 ABG O2 Sat (Measured) (>96.0 %) 99.0 Carboxyhemoglobin (1.5 - 5.0 %) 0.3 L O2 Concentration % 100% O2 Delivery Method NRB Miscellaneous Phlebotomy Draw Site RIGHT BRACHIAL Last 24 Hours of Red Results: Blood cultures 2 July 29 Urine culture July 29 greater than 100,000 colonies of lactose fermenting gram-negative rods Urine strep pneumo antigen and Legionella antigen July 29 negative Recent Imaging Studies: CT of the chest, abdomen and pelvis July 30 reveals left lower lobe consolidation with air bronchograms and small bilateral pleural effusions Assessment/Plan ID Impression: Somewhat improved with temperatures down (on stress steroids) with white blood cell count mildly elevated, possibly secondary to the steroids, on Vancomycin, Azithromycin and Ceftazidime Day 1 for presumed sepsis, most likely secondary to pneumonia, with her CT scan revealing a left lower lobe consolidation, with a urinary source also possible, though the positive urine culture likely represents asymptomatic bacteriuria given the absence of urinary symptoms. Her H&H is markedly elevated after just 2 units of packed RBCs, which is somewhat difficult to explain. Suggestion: 1. Would attempt to obtain a sputum culture 2. Follow-up final cultures 3. Discontinue Ceftazidime 4. Begin Ceftriaxone 1 g IV every 24 hours 5. Re-dose with Vancomycin 1 g IV 1 today 6. Continue Azithromycin
--- NOTE | 2017-07-30 15:17 | PN- Cardiology ---
Subjective Subjective: * Patient continues to report shortness of breath although she feels better than yesterday. No chest discomfort. * sinus rhythm * creatinine 1.2 * cardiac enzymes are coming down * Improved H/H after transfusion * emphysema and left basilar consolidation noted on her chest CT Objective Vital Signs and I&Os Vital Signs Date Time Temp Pulse Resp B/P B/P Pulse O2 O2 Flow FiO2 Mean Ox Delivery Rate 07/30 1436 100.0 07/30 1344 93 Nasal 6.0L Cannula 07/30 1200 93 Nasal 6.0L Cannula 07/30 0800 92 Nasal 6.0L Cannula 07/30 0800 98.2 93 16 110/60 92 Nasal 6.0L Cannula 07/30 0400 94 Nasal 6.0L Cannula 07/30 0000 95 Nasal 6.0L Cannula 07/30 0000 99.3 106 24 110/50 95 Nasal 6.0L Cannula 07/29 2000 94 Nasal 6.0L Cannula 07/29 1845 93 Nasal 6.0L Cannula 07/29 1840 Nasal 6.0L Cannula 07/29 1814 98.0 98 25 84/44 91 Nasal 5.0L Cannula 07/29 1730 91 Nasal 6.0L Cannula 07/29 1725 98.0 94 24 104/58 93 Nasal 6.0L Cannula 07/29 1653 97.4 101 24 94/49 93 Nasal 6.0L Cannula 07/29 1627 97.6 105 24 99/52 93 Nasal 6.0L Cannula 07/29 1600 99.4 97 24 102/50 93 Nasal 6.0L Cannula 07/29 1539 99.4 96 24 96/56 91 Nasal 6.0L Cannula 07/29 1534 97 24 94/50 86 Nasal 6.0L Cannula 07/29 1532 99.5 106 28 95/50 77 Nasal 3.0L Cannula Intake & Output 07/30 1600 07/30 0800 07/30 0000 07/29 1600 07/29 0807/29 0000 Intake Total 742 5975 500 Output Total 1025 370 Balance -283 5605 500 Intake, Blood 700 Product Intake, IV 742 5275 500 Number 1 Bowel Movements Output, Urine 1025 370 Patient 90 lb 89 lb 15.99 oz Weight Weight Bed scale Measurement Method Physical Exam: General: WD/WN male in NAD; alert and oriented x 3 HEENT: NC/AT, PERRL, EOMI Neck: no JVD, no carotid bruit Heart: RRR w/o murmur Lungs: clear bilaterally Abdomen: soft, NT, +ve bowel sounds Extremities; no edema with venous stasis changes, legs are ecchymotic Assessment/Plan Assessment/Plan * This patient demonstrated demand ischemia causing a type 2 NH in the setting of severe anemia and the physiologic stress of infection. She denies chest discomfort and does not demonstrate any ischemic ST-T changes. She does have coronary calcifications of her chest CT indicative of some degree of coronary artery disease but an ACS characterized by ruptured plaque is not suspected. In consideration of her bleeding she cannot tolerate anticoagulation at this point in time. Ensure adequate oxygenation. Monitor on telemetry in the CCU. We will hold off on a statin since her hepatic transaminases are elevated at present. * Obtain an echocardiogram * This patient's blood pressue is improved. Her prior hypotension is may have been related to sepsis, volume loss in the setting of bleeding or adrenal insufficiency due to being on prolonged steroid therapy. Continue antibiotic therapy as recommended by Dr. Olvera and continue steroids. * It should be noted that hydroxychloroquine is associated with diarrhea, bruising and anemia. Continue telemetry? Yes
[2017-07-30 16:00] VITALS: BP 116/55
--- NOTE | 2017-07-30 16:25 | RADIOLOGY REPORT ---
EXAMINATION: XR PORTABLE CHEST CLINICAL INFORMATION: Respiratory failure, and the concern for increasing pulmonary edema. COMPARISON: Portable chest x-ray dated 07/29/2017, CT scan of chest abdomen pelvis performed on the same day as the current study. TECHNIQUE: Portable frontal view of the chest was obtained. FINDINGS: There is interval progression of the haziness and prominence of the pulmonary interstitial markings as well as interval development of blunting of the left costophrenic angle. Findings are concerning for increasing pulmonary edema. IMPRESSION: Findings suggestive of progression of the pulmonary edema present on the previous study, versus interstitial pneumonia or viral pneumonia.
[2017-07-30 17:25] LABS: ABSOLUTE BASOPHIL COUNT 0 /CUMM (0.0-0.2); ABSOLUTE EOSINOPHIL COUNT 0 /CUMM (0.0-0.7); ABSOLUTE GRANULOCYTE CT 11.4 /CUMM (1.4-6.5); ABSOLUTE LYMPH COUNT 1.6 /CUMM (1.2-3.4); ABSOLUTE MONOCYTE COUNT 1.1 /CUMM (0.10-0.60); BASOPHIL % 0.1 % (0.0-2.0); EOSINOPHIL % 0 % (0-5); GRANULOCYTE % 80.8 % (42.2-75.2); HEMATOCRIT 36.1 % (37-47); MEAN CORPUSCULAR HGB 29.5 PG (27.0-31.0); MEAN CORPUSCULAR HGB CONC 31.4 G/DL (33.0-37.0); MEAN CORPUSCULAR VOLUME 94.1 FL (81.0-99.0); MEAN PLATELET VOLUME 8.7 FL (7.4-10.4); PLATELET COUNT 117 /CUMM (130-400); RBC DISTRIBUTION WIDTH 24.3 % (11.5-14.5); RED BLOOD CELL CT 3.84 /CUMM (4.20-5.40); WHITE BLOOD CELL COUNT 14.1 /CUMM (4.8-10.8)
[2017-07-30 17:39] LABS: PT 18.4 SEC (9.4-12.5); PTT 38 SEC (25-37)
[2017-07-31 05:07] LABS: ABSOLUTE BASOPHIL COUNT 0 /CUMM (0.0-0.2); ABSOLUTE EOSINOPHIL COUNT 0 /CUMM (0.0-0.7); ABSOLUTE GRANULOCYTE CT 9.9 /CUMM (1.4-6.5); ABSOLUTE LYMPH COUNT 2.4 /CUMM (1.2-3.4); ABSOLUTE MONOCYTE COUNT 0.1 /CUMM (0.10-0.60); BASOPHIL % 0.1 % (0.0-2.0); EOSINOPHIL % 0.1 % (0-5); HEMATOCRIT 36.3 % (37-47); MEAN CORPUSCULAR HGB CONC 31.8 G/DL (33.0-37.0); MEAN CORPUSCULAR VOLUME 94.5 FL (81.0-99.0); MEAN PLATELET VOLUME 8.6 FL (7.4-10.4); PLATELET COUNT 109 /CUMM (130-400); RBC DISTRIBUTION WIDTH 24.5 % (11.5-14.5); RED BLOOD CELL CT 3.84 /CUMM (4.20-5.40); WHITE BLOOD CELL COUNT 12.5 /CUMM (4.8-10.8)
--- NOTE | 2017-07-31 07:30 | PN- Hematology ---
Subjective Subjective: Feeling better 12 point review of systems unchanged Objective Vital Signs and I&Os Vital Signs Date Time Temp Pulse Resp B/P B/P Pulse O2 O2 Flow FiO2 Mean Ox Delivery Rate 07/31 0514 94 Nasal 60% Cannula 07/31 0047 93 Nasal 60% Cannula 07/31 0033 90 Nasal 55% Cannula 07/30 2200 95 Nasal 55% Cannula 07/30 2000 96 Nasal 65% Cannula 07/30 1711 88 Nasal 60% Cannula 07/30 1600 96 Nasal 60% Cannula 07/30 1600 99.1 95 20 116/55 96 Nasal 60% Cannula 07/30 1436 100.0 07/30 1344 93 Nasal 6.0L Cannula 07/30 1200 93 Nasal 6.0L Cannula 07/30 0800 92 Nasal 6.0L Cannula 07/30 0800 98.2 93 16 110/60 92 Nasal 6.0L Cannula Intake & Output 07/31 0800 07/31 0000 07/30 1600 07/30 0800 07/30 0000 07/29 1600 Intake Total 100 675 433 650 3370 500 Output Total 1150 1775 1100 1025 370 Balance -1050 -1100 -400 -283 5605 500 Intake, Blood 700 Product Intake, IV 100 675 328 744 7893 500 Number 0 1 Bowel Movements Output, Urine 1150 1775 1100 1025 370 Patient 90 lb 89 lb 15.99 oz Weight Weight Bed scale Measurement Method Gen.: in NAD ENT: Sclera anicteric Chest: Normal respiratory effort, decreased breath sounds Cor: RRR, no extra sounds Abdomen: Soft, bowel sounds present, no tenderness, no rebound Extremities: Without clubbing, cyanosis, or asymmetric edema Neurology: Alert and oriented 3, no gross deficit Current Medications: Current Medications Sig/Zeb Start time Last Medication Dose Route Stop Time Status Admin Albuterol Sulfate 3 ML Q4P PRN 07/29 2199 AC 07/30 INH 1341 Azithromycin 500 MG 07/30 AC 07/30 Dextrose/Water 250 ML IV 2147 Azithromycin 500 MG DAILY 07/29 1730 DC 07/29 Dextrose/Water 250 ML IV 2215 Ceftazidime 1,000 MG Q12 07/30 1000 DC 07/30 IV 0946 Ceftriaxone Sodium 1,000 MG DAILY 07/30 1159 AC 07/30 IV 1337 Dextrose 12.5 GM ONCE ONE 07/30 1130 DC 07/30 IV 07/30 1131 1128 Dextrose/Sodium 1,000 ML Q13H 07/30 1345 DC 07/30 Chloride IV 1337 Furosemide 20 MG ONCE ONE 07/30 1715 DC 07/30 IV 07/30 1716 1714 Methylprednisolone 40 MG Q12H 07/29 1999 AC 07/30 IV 2030 Pantoprazole Sodium 40 MG DAILY 07/30 2200 AC 07/30 IV 2147 Potassium Chloride 10 MEQ Q1H 07/30 2045 DC 07/30 IV 07/30 2146 2310 Sodium Chloride 1,000 ML Q13H 07/30 0230 DC 07/30 IV 07/30 1529 0300 Vancomycin HCl 1,000 MG ONCE ONE 07/30 1900 DC 07/30 Dextrose/Water 250 ML IV 07/30 1959 1925 Results Last 24 Hours of Lab Results: Laboratory Tests 07/31 07/30 0435 1900 Chemistry Sodium (137 - 145 mmol/L) 139 Cancelled Potassium (3.5 - 5.1 mmol/L) 3.5 Cancelled Chloride (98 - 107 mmol/L) 103 Cancelled Carbon Dioxide (22 - 30 mmol/L) 26 Cancelled Anion Gap (5 - 16) 10 Cancelled BUN (7 - 17 mg/dL) 19 H Cancelled Creatinine (0.5 - 1.0 mg/dL) 1.0 Cancelled Estimated GFR (>60 ml/min) 52 L Glucose (65 - 99 mg/dL) 132 H Cancelled Calcium (8.4 - 10.2 mg/dL) 7.8 L Cancelled Phosphorus (2.5 - 4.5 mg/dL) 4.2 Cancelled Magnesium (1.6 - 2.3 mg/dL) 2.2 Cancelled Total Bilirubin (0.2 - 1.3 mg/dL) 0.3 Cancelled AST (14 - 36 U/L) 137 H Cancelled ALT (9 - 52 U/L) 63 H Cancelled Albumin (3.5 - 5.0 g/dL) 2.5 L Cancelled Coagulation PT Cancelled INR Cancelled APTT Cancelled Fibrinogen Activity Cancelled Hematology CBC w Diff MAN DIFF ORDERED Cancelled WBC (4.8 - 10.8 /CUMM) 12.5 H Cancelled RBC (4.20 - 5.40 /CUMM) 3.84 L Cancelled Hgb (12.0 - 16.0 G/DL) 11.5 L Cancelled Hct (37 - 47 %) 36.3 L Cancelled MCV (81.0 - 99.0 FL) 94.5 Cancelled MCH (27.0 - 31.0 PG) 30.0 Cancelled MCHC (33.0 - 37.0 G/DL) 31.8 L Cancelled RDW (11.5 - 14.5 %) 24.5 H Cancelled Plt Count (130 - 400 /CUMM) 109 L Cancelled MPV (7.4 - 10.4 FL) 8.6 Cancelled Gran % (42.2 - 75.2 %) 79.0 H Lymphocytes % (20.5 - 51.1 %) 19.6 L Monocytes % (1.7 - 9.3 %) 1.2 L Eosinophils % (0 - 5 %) 0.1 Basophils % (0.0 - 2.0 %) 0.1 Absolute Granulocytes (1.4 - 6.5 /CUMM) 9.9 H Segmented Neutrophils (42.2 - 75.2 %) 50 Band Neutrophils (0.0 - 5.0 %) 27 H Absolute Lymphocytes (1.2 - 3.4 /CUMM) 2.4 Lymphocytes (20.5 - 51.1 %) 17 L Monocytes (1.7 - 9.3 %) 6 Absolute Monocytes (0.10 - 0.60 /CUMM) 0.1 Absolute Eosinophils (0.0 - 0.7 /CUMM) 0 Absolute Basophils (0.0 - 0.2 /CUMM) 0 Nucleated RBCs (0.0 - 0.0 /100WBC) 2 H Platelet Estimate (ADEQUATE) DECREASED Polychromasia 1+ Anisocytosis 1+ Macrocytic Cells FEW Target Cells FEW Stomatocytes 1+ Lee Cells FEW Elliptocytes FEW 07/30 07/30 07/30 1604 1010 0940 Chemistry Sodium (137 - 145 mmol/L) 137 Potassium (3.5 - 5.1 mmol/L) 3.6 Chloride (98 - 107 mmol/L) 104 Carbon Dioxide (22 - 30 mmol/L) 21 L Anion Gap (5 - 16) 12 BUN (7 - 17 mg/dL) 20 H Creatinine (0.5 - 1.0 mg/dL) 1.0 Estimated GFR (>60 ml/min) 52 L Glucose (65 - 99 mg/dL) 149 H Lactic Acid (0.7 - 2.1 mmol/L) 1.4 Calcium (8.4 - 10.2 mg/dL) 7.5 L Phosphorus (2.5 - 4.5 mg/dL) 4.5 Magnesium (1.6 - 2.3 mg/dL) 2.2 Total Bilirubin (0.2 - 1.3 mg/dL) 0.3 AST (14 - 36 U/L) 164 H ALT (9 - 52 U/L) 62 H Albumin (3.5 - 5.0 g/dL) 2.4 L Coagulation PT (9.4 - 12.5 SEC) 18.4 H 18.2 H INR (0.90 - 1.19) 1.76 H 1.74 H APTT (25 - 37 SEC) 38 H 37 Fibrinogen Activity (200 - 393 MG/DL) 604 H 640 H D-Dimer High Sensitivty (0 - 243 ng/ml) 3225 H Hematology CBC w Diff MAN DIFF ORDERED WBC (4.8 - 10.8 /CUMM) 14.1 H RBC (4.20 - 5.40 /CUMM) 3.84 L Hgb (12.0 - 16.0 G/DL) 11.3 L Hct (37 - 47 %) 36.1 L MCV (81.0 - 99.0 FL) 94.1 MCH (27.0 - 31.0 PG) 29.5 MCHC (33.0 - 37.0 G/DL) 31.4 L RDW (11.5 - 14.5 %) 24.3 H Plt Count (130 - 400 /CUMM) 117 L MPV (7.4 - 10.4 FL) 8.7 Gran % (42.2 - 75.2 %) 80.8 H Lymphocytes % (20.5 - 51.1 %) 11.4 L Monocytes % (1.7 - 9.3 %) 7.7 Eosinophils % (0 - 5 %) 0 Basophils % (0.0 - 2.0 %) 0.1 Absolute Granulocytes (1.4 - 6.5 /CUMM) 11.4 H Segmented Neutrophils (42.2 - 75.2 %) 40 L Band Neutrophils (0.0 - 5.0 %) 35 H Absolute Lymphocytes (1.2 - 3.4 /CUMM) 1.6 Lymphocytes (20.5 - 51.1 %) 8 L Monocytes (1.7 - 9.3 %) 13 H Absolute Monocytes (0.10 - 0.60 /CUMM) 1.1 H Absolute Eosinophils (0.0 - 0.7 /CUMM) 0 Absolute Basophils (0.0 - 0.2 /CUMM) 0 Metamyelocytes (0.0 - 1.0 %) 4 H Nucleated RBCs (0.0 - 0.0 /100WBC) 1 H Polychromasia 1+ Anisocytosis 2+ Macrocytic Cells 2+ 07/30 07/30 0840 0730 Chemistry Lactic Acid (0.7 - 2.1 mmol/L) Cancelled 2.6 H Microbiology-GNR urine Assessment/Plan Hematology Assessment/Recommendations: 1. Pneumonia-overall improved 2. Hematologic status-CBC stable 3. Coagulopathy-much improved
--- NOTE | 2017-07-31 07:34 | PN- Resident CRCU ---
Yakov PROCTOR,Prabha 07/31/17 0734: Subjective HPI/CRCU Issues: Saw patient at bedside this a.m. She is on high flow mask. She states she feels better today than yesterday. No acute overnight events complaints. Problems: Respiratory failure secondary to pneumonia Failed swallow eval 24 Hour Events: Vitals: MAXIMUM TEMPERATURE 100.0, respiratory rate between 11 and 22, heart rate between 7497, blood pressure between 96/54 and 138/66, satting 93% on high flow at 60% FiO2. In: 1475. Out: 4025. Last fingerstick: 153, 224, 182. Objective Vital Signs & I&O Last 8 Hrs of Vitals and I&O: Intake & Output 07/31 1600 Intake Total 250 Output Total 1300 Balance -1050 Intake, IV 250 Intake, Oral 0 Intake, Tube 0 Feeding Output, Urine 1300 Patient 40.823 kg Weight Exam General Appearance: well developed/nourished, no apparent distress, alert Head: atraumatic, HI FLOW OXYGEN Ears, Nose, Throat: NC IN. Neck: supple Respiratory: NO WHEEZES, SOME CRACKLES AND RHONCHI PRESENT. Cardiovascular: regular rate/rhythm Gastrointestinal: soft, non-tender Extremities: HAS SIGNIFICANT ECCHYMOSIS IN BILAT LE Current Medications: Current Medications Sig/Zeb Start time Last Medication Dose Route Stop Time Status Admin Albuterol Sulfate 3 ML Q4P PRN 07/29 2199 AC 07/30 INH 1341 Azithromycin 500 MG 07/30 AC 07/30 Dextrose/Water 250 ML IV 2147 Ceftriaxone Sodium 1,000 MG DAILY 07/30 1159 AC 07/31 IV 1056 Dextrose/Sodium 1,000 ML Q20H 07/31 1030 AC 07/31 Chloride IV 1100 Furosemide 20 MG ONCE ONE 07/31 1030 DC 07/31 IV 07/31 1031 1058 Heparin Sodium 25,000 UNIT Q24H 07/31 1730 CAN (Porcine) IV Sodium Chloride 500 ML Methylprednisolone 40 MG Q12H 07/29 2000 DC 07/31 IV 0841 Pantoprazole Sodium 40 MG DAILY 07/30 2200 AC 07/31 IV 1056 Potassium Chloride 10 MEQ Q1H 07/30 2045 DC 07/30 IV 07/30 2146 2310 Prednisone 40 MG DAILY 08/01 1000 AC PO Prednisone 40 MG DAILY 07/31 1134 CAN PO Sodium Chloride 2 SPRAY Q4P PRN 07/31 1715 AC 07/31 KRYSTYNA 1735 Vancomycin HCl 1,000 MG ONCE ONE 07/300 DC 07/30 Dextrose/Water 250 ML IV 07/30 Impression/Plan Impression/Problem List Impression: This is a 86-year-old lady with past medical history significant for myelodysplastic syndrome and chronic anemia requiring blood transfusions, lupus on hydroxychloroquine and prednisone, GERD, hx of COPD, and hypertension who was brought to the hospital for further evaluation of diarrhea and weakness. She was foung to be in sepsis with profound anemia. Initially she was hypotensive but responded well to fluids and adjunctive theraphy. Her progress has been hindered by worsening respiratory distress requiring hi-flow O2 and repeat failed swallow evals. PLAN: Respiratory: Acute hypoxic respiratory failure: Xray shows improving inflitrates after aggressive diuresis. C/o edema vs PNA. She failed swallow eval again today. Unsure if she has hx aspiration. * Solumedrol switched to PO Prednisone 40mg today * IV Lasix 20 x 1 * Con't hi flow at 60 * HOB elevated * NEBS prn * If respiratory status worsens will do repeat lasix and get a gas History of COPD: * Nebs * Solumedrol as above Infectious disease: Sepsis: White count 12.5 and 27 bands which is improved from 14 and 35 bands yesterday.. Given that most pertinent finding on CT Chest abdomen and pelvis was possible consolidation in chest most likely source of infection is PNA, though she is growing GNR in urine. Pt does not have any urinary symptoms at this time. * We'll stop vancomycin after today * Monitor berger cultures * Due to ceftriaxone * Continue Azithromycin * Appreciate ID consult * Follow-up Sputum cx Cardiovascular: Elevated troponin: Resolved .Patient's troponin peaked at 0.28 on July 29. Thought to be secondary to demand due to low hemoglobin and sepsis. Per retail service specialist, transfusion recommendations are 10 and 28. * Pending echocardiogram to evaluate cardiac function. * Appreciate cardiology recommendations * Per Cardiology given transamanitis will hold off on starting her on a statin Heme oncology: MDS with chronic anemia: After 2u PRBC pt had hb 5.5--> 12.4. Unsure of the synergistic jump in hematocrit given only two units. Repeat values suggest that the jump in Hb is accurate. * Repeat CBC at 7 PM * Initially DIC panel positive for very low Fibrinogen; repeat shows elevated fibrinogen. * Appreciate Heme/Onc recs * Will give FFP if active bleeding History of lupus: Patient is on hydroxychloroquine and prednisone 10 mg daily at home for treatment of lupus. This medication is associated with leukopenia, thrombocytopenia and aplastic anemia along with hemolysis. Note that after discontinuing medication her counts seem to have significantly improved. * Continue to hold hydroxychloroquine * Continue steroid Metabolic: Hypokalemia: * Will replete Alimentary: Failed swallow eval: * As such currently nothing by mouth * Very low rate of IVF had to be held due to c/o volume overload Transamanitis: Today AST 137 and ALT 63. Unsure if her coagulopathy is secondary to liver/DIC. ??fx of hydroxychloroquine. Nephro: * No issues DVT prophylaxis ALPS for c/o bleeding Gi ppx on board FC NPO Problem List: 1. Chronic anemia 2. Sepsis Pain Ratin Tomorrow's Labs & Rationales: cbc icu Plan DVT/Prophylaxis: mechanical Marck Blackwell MD 07/31/17 1112: Attending MD Review Statement Attending Sign Off Attending Cosign Statement: I have: examined this patient, reviewed aval EMR data, personally reviewd images, discussd w/resident/PA/[employer], discussed mgmt plan w/monique, discussed mgmt plan w/CM, discussed mgmt plan w/pt, agreed w/resident/PA/[employer], amended to note. Other Findings: Impression 86 year old woman hx of MDS/Anemia acute hypoxemic respiratory failure sepsis - likely urinary vs GI source troponinemia Plan Respiratory -titrate as needed to keep spo2 >92% -needs better high flow nasal cannula fit, d/w RT ID -f/u ID recs regarding abx -scan pending CVS -cardiology consulted -f/u recommendations Heme -f/u hematology recs -s/p blood products Metabolic -electrolyte improved -dc solumedrol, begin prednisone (SLE) Alimentary -NPO for now, failed swallow eval, if not passing swallow eval may require parenteral nutrition Neuro -alert, no acute issues Full Code TTS 35 min
[2017-07-31 08:00] VITALS: BP 122/60
--- NOTE | 2017-07-31 10:00 | RADIOLOGY REPORT ---
EXAMINATION: XR PORTABLE CHEST CLINICAL INFORMATION: Follow-up pulmonary edema after aggressive diuresis. Increasing O2 requirement. COMPARISON: Chest radiograph 07/30/2017. TECHNIQUE: Portable frontal view of the chest was obtained. Multiple support lines overlie the patient. FINDINGS: Compared to the prior study there is interval decrease in pulmonary edema with stable background prominence of the interstitium. The hazy opacification at the left lower lobe has decreased. There is no central vascular congestion. No large volume pleural effusions are seen. There is no pneumothorax. There are stable biapical pleural-parenchymal thickening. There is redemonstration of multiple chronic appearing left-sided rib fractures. The cardiomediastinal contours are stable. IMPRESSION: Interval decrease in pulmonary edema. No new consolidation. No large volume effusion.
--- NOTE | 2017-07-31 11:45 | PN- Infect Dx ---
Subjective Subjective: Afebrile on steroids. She feels better but continues to have a nonproductive cough. Objective Last 24 Hrs of Vital Signs/I&O Vital Signs Date Time Temp Pulse Resp B/P B/P Pulse O2 O2 Flow FiO2 Mean Ox Delivery Rate 07/31 1011 91 Nasal 70% Cannula 07/31 0800 91 Nasal 60% Cannula 07/31 0514 94 Nasal 60% Cannula 07/31 0047 93 Nasal 60% Cannula 07/31 0033 90 Nasal 55% Cannula 07/30 2200 95 Nasal 55% Cannula 07/30 2000 96 Nasal 65% Cannula 07/30 1711 88 Nasal 60% Cannula 07/30 1600 96 Nasal 60% Cannula 07/30 1600 99.1 95 20 116/55 96 Nasal 60% Cannula 07/30 1436 100.0 07/30 1344 93 Nasal 6.0L Cannula 07/30 1200 93 Nasal 6.0L Cannula Intake & Output 07/31 1600 07/31 0800 07/31 0000 Intake Total 100 675 Output Total 1150 1775 Balance -1050 -1100 Intake, IV 100 675 Output, Urine 1150 1775 Patient 89 lb 15.99 oz Weight Physical Exam Other Physical Findings: She is more awake and alert, on the high flow oxygen, in no acute distress Lungs bilateral crackles and rhonchi Heart regular rhythm with no murmur Abdomen is soft, nontender with positive bowel sounds Extremities ecchymosis both lower extremities Muir catheter remains in place Results Last 24 Hours of Lab Results: Laboratory Tests 07/31 07/30 0435 1900 Chemistry Sodium (137 - 145 mmol/L) 139 Cancelled Potassium (3.5 - 5.1 mmol/L) 3.5 Cancelled Chloride (98 - 107 mmol/L) 103 Cancelled Carbon Dioxide (22 - 30 mmol/L) 26 Cancelled Anion Gap (5 - 16) 10 Cancelled BUN (7 - 17 mg/dL) 19 H Cancelled Creatinine (0.5 - 1.0 mg/dL) 1.0 Cancelled Estimated GFR (>60 ml/min) 52 L Glucose (65 - 99 mg/dL) 132 H Cancelled Calcium (8.4 - 10.2 mg/dL) 7.8 L Cancelled Phosphorus (2.5 - 4.5 mg/dL) 4.2 Cancelled Magnesium (1.6 - 2.3 mg/dL) 2.2 Cancelled Total Bilirubin (0.2 - 1.3 mg/dL) 0.3 Cancelled AST (14 - 36 U/L) 137 H Cancelled ALT (9 - 52 U/L) 63 H Cancelled Albumin (3.5 - 5.0 g/dL) 2.5 L Cancelled Coagulation PT Cancelled INR Cancelled APTT Cancelled Fibrinogen Activity Cancelled Hematology CBC w Diff MAN DIFF ORDERED Cancelled WBC (4.8 - 10.8 /CUMM) 12.5 H Cancelled RBC (4.20 - 5.40 /CUMM) 3.84 L Cancelled Hgb (12.0 - 16.0 G/DL) 11.5 L Cancelled Hct (37 - 47 %) 36.3 L Cancelled MCV (81.0 - 99.0 FL) 94.5 Cancelled MCH (27.0 - 31.0 PG) 30.0 Cancelled MCHC (33.0 - 37.0 G/DL) 31.8 L Cancelled RDW (11.5 - 14.5 %) 24.5 H Cancelled Plt Count (130 - 400 /CUMM) 109 L Cancelled MPV (7.4 - 10.4 FL) 8.6 Cancelled Gran % (42.2 - 75.2 %) 79.0 H Lymphocytes % (20.5 - 51.1 %) 19.6 L Monocytes % (1.7 - 9.3 %) 1.2 L Eosinophils % (0 - 5 %) 0.1 Basophils % (0.0 - 2.0 %) 0.1 Absolute Granulocytes (1.4 - 6.5 /CUMM) 9.9 H Segmented Neutrophils (42.2 - 75.2 %) 50 Band Neutrophils (0.0 - 5.0 %) 27 H Absolute Lymphocytes (1.2 - 3.4 /CUMM) 2.4 Lymphocytes (20.5 - 51.1 %) 17 L Monocytes (1.7 - 9.3 %) 6 Absolute Monocytes (0.10 - 0.60 /CUMM) 0.1 Absolute Eosinophils (0.0 - 0.7 /CUMM) 0 Absolute Basophils (0.0 - 0.2 /CUMM) 0 Nucleated RBCs (0.0 - 0.0 /100WBC) 2 H Platelet Estimate (ADEQUATE) DECREASED Polychromasia 1+ Anisocytosis 1+ Macrocytic Cells FEW Target Cells FEW Stomatocytes 1+ Bhargav Cells FEW Elliptocytes FEW 07/30 1604 Chemistry Sodium (137 - 145 mmol/L) 137 Potassium (3.5 - 5.1 mmol/L) 3.6 Chloride (98 - 107 mmol/L) 104 Carbon Dioxide (22 - 30 mmol/L) 21 L Anion Gap (5 - 16) 12 BUN (7 - 17 mg/dL) 20 H Creatinine (0.5 - 1.0 mg/dL) 1.0 Estimated GFR (>60 ml/min) 52 L Glucose (65 - 99 mg/dL) 149 H Calcium (8.4 - 10.2 mg/dL) 7.5 L Phosphorus (2.5 - 4.5 mg/dL) 4.5 Magnesium (1.6 - 2.3 mg/dL) 2.2 Total Bilirubin (0.2 - 1.3 mg/dL) 0.3 AST (14 - 36 U/L) 164 H ALT (9 - 52 U/L) 62 H Albumin (3.5 - 5.0 g/dL) 2.4 L Coagulation PT (9.4 - 12.5 SEC) 18.4 H INR (0.90 - 1.19) 1.76 H APTT (25 - 37 SEC) 38 H Fibrinogen Activity (200 - 393 MG/DL) 604 H D-Dimer High Sensitivty (0 - 243 ng/ml) 3225 H Hematology CBC w Diff MAN DIFF ORDERED WBC (4.8 - 10.8 /CUMM) 14.1 H RBC (4.20 - 5.40 /CUMM) 3.84 L Hgb (12.0 - 16.0 G/DL) 11.3 L Hct (37 - 47 %) 36.1 L MCV (81.0 - 99.0 FL) 94.1 MCH (27.0 - 31.0 PG) 29.5 MCHC (33.0 - 37.0 G/DL) 31.4 L RDW (11.5 - 14.5 %) 24.3 H Plt Count (130 - 400 /CUMM) 117 L MPV (7.4 - 10.4 FL) 8.7 Gran % (42.2 - 75.2 %) 80.8 H Lymphocytes % (20.5 - 51.1 %) 11.4 L Monocytes % (1.7 - 9.3 %) 7.7 Eosinophils % (0 - 5 %) 0 Basophils % (0.0 - 2.0 %) 0.1 Absolute Granulocytes (1.4 - 6.5 /CUMM) 11.4 H Segmented Neutrophils (42.2 - 75.2 %) 40 L Band Neutrophils (0.0 - 5.0 %) 35 H Absolute Lymphocytes (1.2 - 3.4 /CUMM) 1.6 Lymphocytes (20.5 - 51.1 %) 8 L Monocytes (1.7 - 9.3 %) 13 H Absolute Monocytes (0.10 - 0.60 /CUMM) 1.1 H Absolute Eosinophils (0.0 - 0.7 /CUMM) 0 Absolute Basophils (0.0 - 0.2 /CUMM) 0 Metamyelocytes (0.0 - 1.0 %) 4 H Nucleated RBCs (0.0 - 0.0 /100WBC) 1 H Polychromasia 1+ Anisocytosis 2+ Macrocytic Cells 2+ Last 24 Hours of Red Results: Blood cultures 2 July 29 negative Urine culture July 29 greater than 100,000 colonies of Escherichia coli sensitive to all antibiotics tested Recent Imaging Studies: Chest x-ray July 31 reveals a decrease in pulmonary edema with a decrease in the left lower lobe density and with no large pleural effusions Assessment/Plan ID Impression: Improved, with temperatures remaining normal (on stress steroids) with white blood cell count mildly elevated, likely secondary to the steroids, on Vancomycin, Azithromycin and Ceftriaxone Day 2 for presumed sepsis, most likely secondary to pneumonia, with persistent cough, respiratory failure, requiring high flow oxygen, and with her CT scan revealing a left lower lobe consolidation. A urinary source is also possible, but she has had no urinary symptoms and, therefore, suspect that the positive urine culture represents asymptomatic bacteriuria. Her H&H is stable, suggesting that the low H&H on admission was a spurious value. Suggestion: 1. Would hold on further Vancomycin 2. Continue Ceftriaxone and Azithromycin
[2017-07-31 12:00] VITALS: BP 130/80
[2017-07-31 15:14] VITALS: BP 126/58
--- NOTE | 2017-07-31 20:37 | PN- Cardiology ---
Subjective Subjective: * Patient continues to report shortness of breath. No chest discomfort. * sinus rhythm * cardiac enzymes are coming down * Improved H/H after transfusion * emphysema and left basilar consolidation noted on her chest CT * elevated D-dimer Objective Vital Signs and I&Os Vital Signs Date Time Temp Pulse Resp B/P B/P Pulse O2 O2 Flow FiO2 Mean Ox Delivery Rate 07/31 Nasal 60% Cannula 07/31 1931 94 Nasal 65% Cannula 07/31 1620 94 Nasal 70% Cannula 07/31 1600 94 Nasal 70% Cannula 07/31 1514 98.9 85 14 126/58 92 Nasal 70% Cannula 07/31 1403 93 Nasal 70% Cannula 07/31 1200 93 Nasal 70% Cannula 07/31 1200 97.7 73 130/80 88 Nasal 70% Cannula 07/31 1011 91 Nasal 70% Cannula 07/31 0800 91 Nasal 60% Cannula 07/31 0800 97.9 80 18 122/60 93 Nasal 60% Cannula 07/31 0514 94 Nasal 60% Cannula 07/31 0047 93 Nasal 60% Cannula 07/31 0033 90 Nasal 55% Cannula 07/30 2200 95 Nasal 55% Cannula Intake & Output 07/31 1600 07/31 0800 07/31 0000 07/30 1600 07/30 0800 07/30 0000 Intake Total 250 100 675 872 695 1659 Output Total 1300 1150 1775 1100 1025 370 Balance -1050 -1050 -1100 -400 -283 5605 Intake, Blood 700 Product Intake, IV 250 100 675 612 078 7589 Intake, Oral 0 Intake, Tube 0 Feeding Number 0 1 Bowel Movements Output, Urine 1300 1150 1775 1100 1025 370 Patient 89 lb 15.99 oz 90 lb Weight Weight Bed scale Measurement Method Physical Exam: General: WD/WN male in NAD; alert and oriented x 3 HEENT: NC/AT, PERRL, EOMI Neck: no JVD, no carotid bruit Heart: RRR w/o murmur Lungs: clear bilaterally Abdomen: soft, NT, +ve bowel sounds Extremities; no edema with venous stasis changes, legs are ecchymotic Assessment/Plan Assessment/Plan * This patient had an elevated troponin which was initially attributed to demand ischemia. She continues to have shortness of breath despite being on high flow oxygen and despite her chest X-ray to a large extent clearing. In consideration of these facts and a very elevated D-dimer it is prudent to obtain a CT angiogram to rule out a PE now that her creatinine has normalized. Her last pO2 was high but it was on high flow oxygen. If the patient rules in for a PE then begin IV heparin. * We will continue to treat for demand ischemia with type 2 CO in the setting of severe anemia and the physiologic stress of infection. She denies chest discomfort and does not demonstrate any ischemic ST-T changes. She does have coronary calcifications of her chest CT indicative of some degree of coronary artery disease but an ACS characterized by ruptured plaque is not suspected. Ensure adequate oxygenation. Monitor on telemetry in the CCU. We will hold off on a statin since her hepatic transaminases are elevated at present. * Obtain an echocardiogram * This patient's blood pressue is improved. Her prior hypotension is may have been related to sepsis, volume loss in the setting of bleeding or adrenal insufficiency due to being on prolonged steroid therapy. Continue antibiotic therapy as recommended by Dr. Olvera and continue steroids. * It should be noted that hydroxychloroquine is associated with diarrhea, bruising and anemia. Continue telemetry? Yes
--- NOTE | 2017-07-31 21:05 | ECHOCARDIOGRAM REPORT ---
GRUPO HOANG Age: 86 : 1930 Gender: F Exam Date: 07/30/2017 17:59 Exam Location: [facility] Ht (in): 60 Wt (lb): 90 BSA: 1.31 BP: 110 / 50 Ordering Physician: Johanny Carter MD Referring Physician: Jeronimo Pope MD, PhD Technologist: Connie Vee [facility] Room Number: 108 Indications: MYOCARDIAL ISCHEMIA/IN Rhythm: Sinus Technical Quality: fair FINDINGS Left Ventricle Normal left ventricular size and wall thickness. Mildly decreased systolic function with mid to distal anteroseptal hypokinesis. Diastolic filling pattern is consistent with impaired LV relaxation. The ejection fraction is visually estimated at 40%. Right Ventricle The right ventricle is normal in size and function. Right Atrium The right atrium is normal in size. Left Atrium The left atrium is normal in size. The interatrial septum is intact. Mitral Valve The mitral valve is normal in structure and function. There is mild mitral regurgitation. Aortic Valve Structurally normal aortic valve without significant sclerosis or stenosis. There is trace aortic regurgitation. Tricuspid Valve The tricuspid valve is normal in structure and function. There is no tricuspid regurgitation. Pulmonic Valve Structurally normal pulmonic valve. There is no pulmonic regurgitation. Pericardium Normal pericardium without effusion. No pleural effusion. Great Vessels Normal aortic root dimension. The aortic arch and great vessels are well seen and are normal. CONCLUSIONS 1. Mildly decreased EF of 40% with mid to distal anteroseptal wall hypokinesis and impaired LV relaxation. 2. Mild mitral regurgitation. 3. Trace aortic insufficiency. Jeronimo Pope M.D. (Electronically Signed) Final Date: 31 July 2017 21:04 MEASUREMENTS (Male / Female) Normal Values 2D ECHO LV Diastolic Diameter PLAX 4.2 cm 4.2 - 5.9 / 3.9 - 5.3 cm LV Systolic Diameter PLAX 2.9 cm 2.1 - 4.0 cm LV Fractional Shortening PLAX 31.0 % 25 - 46 % LV Ejection Fraction 2D Teich 59.0 % IVS Diastolic Thickness 0.9 cm LVPW Diastolic Thickness 0.9 cm LV Relative Wall Thickness 0.4 RV Internal Dim ED PLAX 2.4 cm 1.9 - 3.8 cm LVOT Diameter 2.0 cm Aortic Root Diameter 3.0 cm LA Systolic Diameter LX 3.2 cm 3.0 - 4.0 / 2.7 - 3.8 cm LA Volume 29.0 cm 18 - 58 / 22 - 52 cm Ascending Aorta Diameter 2.9 cm DOPPLER AV Peak Velocity 125.0 cm/s AV Peak Gradient 6.3 mmHg AV Mean Velocity 88.9 cm/s AV Mean Gradient 4.0 mmHg AV Velocity Time Integral 27.5 cm LVOT Peak Velocity 96.3 cm/s LVOT Peak Gradient 3.7 mmHg LVOT Mean Velocity 64.3 cm/s LVOT Mean Gradient 2.0 mmHg LVOT Velocity Time Integral 21.7 cm LVOT Stroke Volume 68.2 cm AV Area Cont Eq vti 2.5 cm AV Area Cont Eq pk 2.4 cm MV Peak Velocity 131.0 cm/s MV Peak Gradient 6.9 mmHg MV Mean Velocity 62.7 cm/s MV Mean Gradient 2.0 mmHg Mitral E Point Velocity 81.9 cm/s Mitral A Point Velocity 104.0 cm/s Mitral E to A Ratio 0.8 MV PHT Velocity 73.7 cm/s MV Deceleration Angelina 217.0 cm/s MV Pressure Half Time 101.9 ms MV Area PHT 2.2 cm MV Deceleration Time 285.0 ms PV Peak Velocity 79.6 cm/s PV Peak Gradient 2.5 mmHg PV Mean Velocity 51.7 cm/s PV Mean Gradient 1.0 mmHg PV Velocity Time Integral 14.9 cm LV E' Lateral Velocity 9.2 cm/s Mitral E to LV E' Lateral Ratio 8.9 LV E' Septal Velocity 6.5 cm/s Mitral E to LV E' Septal Ratio 12.5
--- NOTE | 2017-07-31 21:19 | CT SCAN REPORT ---
EXAMINATION: CT ANGIOGRAM OF THE CHEST WITH AND WITHOUT CONTRAST (CT PULMONARY ANGIOGRAM FOR PE) CLINICAL INFORMATION: Shortness of breath COMPARISON: CT chest 07/30/2017, chest x-ray 07/31/2017 TECHNIQUE: Prior to contrast administration, noncontrast localization images were obtained. Subsequently, multidetector volumetric imaging was performed from the thoracic inlet to below the diaphragms following the administration of 80 mL Omnipaque 350 intravenous contrast. No contrast reaction reported. Sagittal, coronal, and MIP oblique sagittal reformatted images were obtained on the CT workstation, uploaded to PACS, and reviewed. Total exam dose-length product 172.0 mGy-cm. FINDINGS: QUALITY OF STUDY/CONTRAST BOLUS: Satisfactory PULMONARY ARTERIES: No central or segmental pulmonary emboli. THORACIC AORTA: Atherosclerotic vascular wall calcifications of aortic arch and descending aorta. No aneurysm or dissection of aorta LUNG: There is marked emphysematous changes of lungs. Bibasilar consolidation at the dependent lung bilaterally. PLEURA: Small bilateral pleural effusions. MEDIASTINUM: Normal heart size. No pericardial effusion. No hilar or mediastinal lymphadenopathy. No evidence of septal bowing or right heart strain. CHEST WALL/AXILLA: No axillary or internal mammary lymphadenopathy. OSSEOUS STRUCTURES: Multiple healed left-sided rib fractures. Degenerative spondylosis of dorsal spine. UPPER ABDOMEN: Unremarkable. No reflux of contrast into the hepatic veins to suggest elevated right heart pressures. IMPRESSION: 1. No evidence of pulmonary embolism. 2. Bibasilar infiltrates with small bilateral pleural effusions. 3. Marked emphysematous changes of lung. VTE: negative
[2017-08-01] VITALS: BP 142/60
[2017-08-01 06:13] LABS: ABSOLUTE BASOPHIL COUNT 0 /CUMM (0.0-0.2); ABSOLUTE EOSINOPHIL COUNT 0 /CUMM (0.0-0.7); ABSOLUTE GRANULOCYTE CT 5.2 /CUMM (1.4-6.5); ABSOLUTE LYMPH COUNT 1.1 /CUMM (1.2-3.4); ABSOLUTE MONOCYTE COUNT 0.1 /CUMM (0.10-0.60); BASOPHIL % 0 % (0.0-2.0); EOSINOPHIL % 0.2 % (0-5); GRANULOCYTE % 82.1 % (42.2-75.2); HEMATOCRIT 33.4 % (37-47); MEAN CORPUSCULAR VOLUME 93.7 FL (81.0-99.0); MEAN PLATELET VOLUME 9.8 FL (7.4-10.4); RBC DISTRIBUTION WIDTH 22.8 % (11.5-14.5); RED BLOOD CELL CT 3.57 /CUMM (4.20-5.40); WHITE BLOOD CELL COUNT 6.3 /CUMM (4.8-10.8)
[2017-08-01 06:43] LABS: PLATELET COUNT ND /CUMM (130-400)
--- NOTE | 2017-08-01 07:19 | PN- Resident CRCU ---
Yakov PROCTOR,Prabha 08/01/17 0718: Subjective HPI/CRCU Issues: Acute hypoxic respiratory failure secondary to pneumonia Elevated troponin MDS of chronic anemia LFT elevation Saw patient at bedside this a.m., she seemed a little better but she said she felt about the same as yesterday. Oxygen requirement is increasing throughout the day. She continues to feel swallow eval and I spoke with family member at bedside about possibly requiring alternate methods of feeding. Plan is for MBS tomorrow and further evaluate alternative measures depending on pathology of swallow mechanism. 24 Hour Events: Vitals: Temperature 97.0, heart rate between 6484, respiratory rate between 13 and 22, blood pressure between 114/59 and 134/65. Patient on high flow between 60 and 70% last night. Satting around 93% Total in: 7088. Total out: 7470. Objective Vital Signs & I&O Last 8 Hrs of Vitals and I&O: Intake & Output 08/01 1600 Intake Total 437 Output Total 1200 Balance -763 Intake, IV 437 Number 0 Bowel Movements Output, Urine 1200 Exam General Appearance: well developed/nourished, no apparent distress, alert, awake , mild distress, hi flow nasal canula in place Head: atraumatic, normal appearance Ears, Nose, Throat: normal pharynx, normal ENT inspection Neck: normal inspection, supple Respiratory: respiratory distress Cardiovascular: regular rate/rhythm Gastrointestinal: soft, non-tender Extremities: normal inspection Current Medications: Current Medications Sig/Zeb Start time Last Medication Dose Route Stop Time Status Admin Albuterol Sulfate 3 ML Q4P PRN 07/29 2199 AC 08/01 INH 1048 Azithromycin 500 MG 07/30 AC 07/31 Dextrose/Water 250 ML IV 2143 Ceftriaxone Sodium 1,000 MG DAILY 07/30 1159 AC 08/01 IV 1002 Dextrose/Sodium 1,000 ML Q20H 07/31 1030 AC 08/01 Chloride IV 0826 Furosemide 20 MG ONCE ONE 08/01 1230 DC 08/01 IV 08/01 1231 1226 Methylprednisolone 40 MG DAILY 08/01 1000 AC 08/01 IV 1002 Pantoprazole Sodium 40 MG DAILY 07/30 2200 AC 08/01 IV 1002 Potassium Chloride 10 MEQ Q1H 08/01 0900 DC 08/01 IV 08/01 1001 1155 Prednisone 40 MG DAILY 08/01 1000 CAN PO Sodium Chloride 2 SPRAY Q4P PRN 07/31 1715 AC 07/31 KRYSTYNA 1735 Impression/Plan Impression/Problem List Impression: This is a 86-year-old lady with past medical history significant for myelodysplastic syndrome and chronic anemia requiring blood transfusions, lupus on hydroxychloroquine and prednisone, GERD, hx of COPD, and hypertension who was brought to the hospital for further evaluation of diarrhea and weakness. She was foung to be in sepsis with profound anemia. Initially she was hypotensive but responded well to fluids and adjunctive theraphy. Her progress has been hindered by worsening respiratory distress requiring hi-flow O2 and repeat failed swallow evals. PLAN: Respiratory: Acute hypoxic respiratory failure: She is now on 100% Hi flow nasal cannula. She has increased from 60--70--100% thruogh the past two days. She does have sig hx smoking with evidence of emphysema in CTA. Dimer markedly elevated but no evidence of PE on CTA. There are some infiltrates on CT with minor pleural effusion. * Solumedrol dose decreased * IV Lasix 20 x 1 * Con't hi flow. Pt is very clear about her wishes and has articulated multiple times in room with family present that she wants to be intubated and wants all aggressive measures to be performed if necessary. * HOB elevated * NEBS prn * If respiratory status worsens will do repeat lasix and get a gas History of COPD: * Nebs * Solumedrol as above Infectious disease: Sepsis: White count 6.3 and 14 bands which is improved but she has been on steroids. Given that most pertinent finding on CT Chest abdomen and pelvis was possible consolidation in chest most likely source of infection is PNA, though she is growing pansensitive ecoli in urine. Pt does not have any urinary symptoms at this time. * We'll stop vancomycin after today * Monitor berger cultures * Due to ceftriaxone * Continue Azithromycin * Appreciate ID consult * Follow-up Sputum cx Cardiovascular: Elevated troponin: Resolved .Patient's troponin peaked at 0.28 on July 29. Thought to be secondary to demand due to low hemoglobin and sepsis. Per education reviewer, transfusion recommendations are 10 and 28. * Pending echocardiogram to evaluate cardiac function. * Appreciate cardiology recommendations * Per Cardiology given transamanitis will hold off on starting her on a statin Heme oncology: MDS with chronic anemia: After 2u PRBC pt had hb 5.5--> 12.4 today around 10. Unsure of the synergistic jump in hematocrit given only two units. Repeat values suggest that the jump in Hb is accurate. * Repeat CBC at 7 PM * Initially DIC panel positive for very low Fibrinogen; repeat shows elevated fibrinogen. * Appreciate Heme/Onc recs * Will give FFP if active bleeding * dic panel today History of lupus: Patient is on hydroxychloroquine and prednisone 10 mg daily at home for treatment of lupus. This medication is associated with leukopenia, thrombocytopenia and aplastic anemia along with hemolysis. Note that after discontinuing medication her counts seem to have significantly improved. * Continue to hold hydroxychloroquine * Continue steroid Metabolic: Hypokalemia: Likely 2/2 lasix. Pt does not have a central line and is currently NPO given failed swallow eval x3. Cannot replete orally. Will attempt to replete via PIV. * Replete Alimentary: Failed swallow eval: * As such currently nothing by mouth * Very low rate of IVF had to be held due to c/o volume overload Transamanitis: Unsure of etiology. Transamanitis in 100s since admission. Unsure if her coagulopathy is secondary to liver/DIC. ??fx of hydroxychloroquine. Nephro: * No issues DVT prophylaxis ALPS for c/o bleeding GI ppx on board Muir in place FC NPO Problem List: 1. Hypokalemia 2. Thrombocytopenia 3. 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 Other Findings: Impression 86 year old woman hx of MDS/Anemia acute hypoxemic respiratory failure sepsis - likely urinary vs GI source troponinemia Plan Respiratory -titrate as needed to keep spo2 >92% -needs better high flow nasal cannula fit, d/w RT ID -f/u ID recs regarding abx -scan pending CVS -cardiology consulted -f/u recommendations -no evidence of PE Heme -f/u hematology recs Metabolic -electrolyte improved -taper steroids Alimentary -NPO for now, failed swallow eval, if not passing swallow eval may require parenteral nutrition Neuro -alert, no acute issues Full Code TTS 35 min
--- NOTE | 2017-08-01 07:44 | PN- Hematology ---
Subjective Subjective: Breathing is improved. She denies any new pain. She does have some difficulty with swallowing. She denies any nausea or vomiting. She denies any diarrhea. She has no new fever or chills. Review of Systems Constitutional: Reports: weakness. Denies: chills, fever. EENTM: Reports: throat pain. Denies: throat swelling. Cardiovascular: Denies: chest pain. Respiratory: Reports: short of breath. Gastrointestinal: Denies: abdominal pain. Musculoskeletal: Denies: back pain. Immunologic/Allergic: Denies: lymphadenopathy. All Other Systems: Reviewed and Negative Objective Vital Signs and I&Os Vital Signs Date Time Temp Pulse Resp B/P B/P Pulse O2 O2 Flow FiO2 Mean Ox Delivery Rate 08/01 0400 93 Nasal 65% Cannula 08/01 0000 90 Nasal 65% Cannula 08/01 0000 97.0 82 14 142/60 90 Nasal 65% Cannula 07/31 2349 89 Nasal 60% Cannula 07/31 2208 93 Nasal 60% Cannula 07/31 2000 92 Nasal 60% Cannula 07/31 1931 94 Nasal 65% Cannula 07/31 1620 94 Nasal 70% Cannula 07/31 1600 94 Nasal 70% Cannula 07/31 1514 98.9 85 14 126/58 92 Nasal 70% Cannula 07/31 1403 93 Nasal 70% Cannula 07/31 1200 93 Nasal 70% Cannula 07/31 1200 97.7 73 130/80 88 Nasal 70% Cannula 07/31 1011 91 Nasal 70% Cannula 07/31 0800 91 Nasal 60% Cannula 07/31 0800 97.9 80 18 122/60 93 Nasal 60% Cannula Intake & Output 08/01 0800 08/01 0000 07/31 1600 07/31 0800 07/31 0000 07/30 1600 Intake Total 496 400 250 100 675 700 Output Total 142 924 5893 1150 1775 1100 Balance 96 -200 -1050 -1050 -1100 -400 Intake, IV 496 400 250 100 675 700 Intake, Oral 0 0 Intake, Tube 0 Feeding Number 0 0 0 Bowel Movements Output, Urine 863 486 9587 1150 1775 1100 Patient 40.823 kg Weight Physical Exam General Appearance: no apparent distress, alert, awake, comfortable Head: atraumatic, normal appearance Ears, Nose, Throat: normal pharynx Respiratory: chest non-tender, no respiratory distress, quiet respiration, on highflow oxygen Cardiovascular: regular rate/rhythm Abdomen: normal bowel sounds, soft, non-tender Extremities: no edema Neurologic/Psychiatric: awake, alert, oriented x 3 Skin: normal color Current Medications: Current Medications Sig/Zeb Start time Last Medication Dose Route Stop Time Status Admin Albuterol Sulfate 3 ML Q4P PRN 07/29 2199 AC 07/30 INH 1341 Azithromycin 500 MG 07/30 AC 07/31 Dextrose/Water 250 ML IV 2143 Ceftriaxone Sodium 1,000 MG DAILY 07/30 1159 AC 07/31 IV 1056 Dextrose/Sodium 1,000 ML Q20H 07/31 1030 AC 07/31 Chloride IV 1100 Furosemide 20 MG ONCE ONE 07/31 1030 DC 07/31 IV 07/31 1031 1058 Heparin Sodium 25,000 UNIT Q24H 07/31 1730 CAN (Porcine) IV Sodium Chloride 500 ML Methylprednisolone 40 MG DAILY 08/01 1000 AC IV Methylprednisolone 40 MG Q12H 07/29 2000 DC 07/31 IV 0841 Pantoprazole Sodium 40 MG DAILY 07/30 2200 AC 07/31 IV 1056 Prednisone 40 MG DAILY 08/01 1000 CAN PO Prednisone 40 MG DAILY 07/31 1134 CAN PO Sodium Chloride 2 SPRAY Q4P PRN 07/31 1715 AC 07/31 KRYSTYNA 1735 Results Last 24 Hours of Lab Results: Laboratory Tests 08/01 0513 Chemistry Sodium (137 - 145 mmol/L) 139 Potassium (3.5 - 5.1 mmol/L) 3.4 L Chloride (98 - 107 mmol/L) 99 Carbon Dioxide (22 - 30 mmol/L) 32 H Anion Gap (5 - 16) 8 BUN (7 - 17 mg/dL) 20 H Creatinine (0.5 - 1.0 mg/dL) 0.7 Estimated GFR (>60 ml/min) > 60 Glucose (65 - 99 mg/dL) 97 Calcium (8.4 - 10.2 mg/dL) 8.0 L Phosphorus (2.5 - 4.5 mg/dL) 3.0 Magnesium (1.6 - 2.3 mg/dL) 2.0 Total Bilirubin (0.2 - 1.3 mg/dL) 0.6 AST (14 - 36 U/L) 115 H ALT (9 - 52 U/L) 51 Albumin (3.5 - 5.0 g/dL) 2.6 L Hematology CBC w Diff MAN DIFF ORDERED WBC (4.8 - 10.8 /CUMM) 6.3 RBC (4.20 - 5.40 /CUMM) 3.57 L Hgb (12.0 - 16.0 G/DL) 10.7 L Hct (37 - 47 %) 33.4 L MCV (81.0 - 99.0 FL) 93.7 MCH (27.0 - 31.0 PG) 30.0 MCHC (33.0 - 37.0 G/DL) 32.0 L RDW (11.5 - 14.5 %) 22.8 H Plt Count (130 - 400 /CUMM) ND MPV (7.4 - 10.4 FL) 9.8 Gran % (42.2 - 75.2 %) 82.1 H Lymphocytes % (20.5 - 51.1 %) 16.8 L Monocytes % (1.7 - 9.3 %) 0.9 L Eosinophils % (0 - 5 %) 0.2 Basophils % (0.0 - 2.0 %) 0 Absolute Granulocytes (1.4 - 6.5 /CUMM) 5.2 Segmented Neutrophils (42.2 - 75.2 %) 72 Band Neutrophils (0.0 - 5.0 %) 14 H Absolute Lymphocytes (1.2 - 3.4 /CUMM) 1.1 L Lymphocytes (20.5 - 51.1 %) 4 L Monocytes (1.7 - 9.3 %) 9 Absolute Monocytes (0.10 - 0.60 /CUMM) 0.1 Absolute Eosinophils (0.0 - 0.7 /CUMM) 0 Absolute Basophils (0.0 - 0.2 /CUMM) 0 Metamyelocytes (0.0 - 1.0 %) 1 Platelet Estimate (ADEQUATE) ADEQUATE Hypochromic-Microcytic 1+ Poikilocytosis 1+ Ovalocytes 1+ Other Body Source Fld Total RBCs Counted (%) 100 Recent Imaging Studies: CTA chest 07/31/2017: 1. No evidence of pulmonary embolism. 2. Bibasilar infiltrates with small bilateral pleural effusions. 3. Marked emphysematous changes of lung. Assessment/Plan Hematology Assessment/Recommendations: Ms. Aguirre is an 86-year-old female with myelodysplastic syndrome and chronic anemia requiring blood transfusions, lupus on hydroxychloroquine and prednisone, GERD, COPD, and hypertension who was brought to the hospital for further evaluation of diarrhea and weakness. She was noted to have severe anemia and hypoxia respiratory failure. She is on antibiotics and is improving. She had evidence of DIC and is improving. Her blood counts are also improving. Sepsis: -improving -antibiotics as per primary DIC: -improving -monitor PT/PTT/fibrinogen Cytopenias: -overall improving -monitor CBC Please call [phone] with any questions or concerns. Problem List: 1. Chronic anemia 2. Sepsis 3. MDS (myelodysplastic syndrome) 4. Thrombocytopenia
[2017-08-01 08:00] VITALS: BP 130/70
--- NOTE | 2017-08-01 10:52 | PN- Infect Dx ---
Subjective Subjective: Afebrile on steroids. She feels improved with no complaints. Objective Last 24 Hrs of Vital Signs/I&O Vital Signs Date Time Temp Pulse Resp B/P B/P Pulse O2 O2 Flow FiO2 Mean Ox Delivery Rate 08/01 0928 93 Nasal 70% Cannula 08/01 0800 90 Nasal 75% Cannula 08/01 08 97.8 65 130/70 90 Nasal 70% Cannula 08/01 0400 93 Nasal 65% Cannula 08/01 0000 90 Nasal 65% Cannula 08/01 0000 97.0 82 14 142/60 90 Nasal 65% Cannula 07/31 2349 89 Nasal 60% Cannula 07/31 2208 93 Nasal 60% Cannula 07/31 2000 92 Nasal 60% Cannula 07/31 1931 94 Nasal 65% Cannula 07/31 1620 94 Nasal 70% Cannula 07/31 1600 94 Nasal 70% Cannula 07/31 1514 98.9 85 14 126/58 92 Nasal 70% Cannula 07/31 1403 93 Nasal 70% Cannula 07/31 1200 93 Nasal 70% Cannula 07/31 1200 97.7 73 130/80 88 Nasal 70% Cannula Intake & Output 08/01 1600 08/01 0800 08/01 0000 Intake Total 496 400 Output Total 400 600 Balance 96 -200 Intake, IV 496 400 Intake, Oral 0 Number 0 0 Bowel Movements Output, Urine 400 600 Physical Exam Other Physical Findings: She appears comfortable on high flow oxygen Lungs diffuse crackles Heart regular rhythm with no murmur Abdomen is soft, nontender positive bowel sounds Extremities ecchymoses both lower extremities Muir catheter remains in place Results Last 24 Hours of Lab Results: Laboratory Tests 08/01 512 Chemistry Sodium (137 - 145 mmol/L) 139 Potassium (3.5 - 5.1 mmol/L) 3.4 L Chloride (98 - 107 mmol/L) 99 Carbon Dioxide (22 - 30 mmol/L) 32 H Anion Gap (5 - 16) 8 BUN (7 - 17 mg/dL) 20 H Creatinine (0.5 - 1.0 mg/dL) 0.7 Estimated GFR (>60 ml/min) > 60 Glucose (65 - 99 mg/dL) 97 Calcium (8.4 - 10.2 mg/dL) 8.0 L Phosphorus (2.5 - 4.5 mg/dL) 3.0 Magnesium (1.6 - 2.3 mg/dL) 2.0 Total Bilirubin (0.2 - 1.3 mg/dL) 0.6 AST (14 - 36 U/L) 115 H ALT (9 - 52 U/L) 51 Albumin (3.5 - 5.0 g/dL) 2.6 L Hematology CBC w Diff MAN DIFF ORDERED WBC (4.8 - 10.8 /CUMM) 6.3 RBC (4.20 - 5.40 /CUMM) 3.57 L Hgb (12.0 - 16.0 G/DL) 10.7 L Hct (37 - 47 %) 33.4 L MCV (81.0 - 99.0 FL) 93.7 MCH (27.0 - 31.0 PG) 30.0 MCHC (33.0 - 37.0 G/DL) 32.0 L RDW (11.5 - 14.5 %) 22.8 H Plt Count (130 - 400 /CUMM) ND MPV (7.4 - 10.4 FL) 9.8 Gran % (42.2 - 75.2 %) 82.1 H Lymphocytes % (20.5 - 51.1 %) 16.8 L Monocytes % (1.7 - 9.3 %) 0.9 L Eosinophils % (0 - 5 %) 0.2 Basophils % (0.0 - 2.0 %) 0 Absolute Granulocytes (1.4 - 6.5 /CUMM) 5.2 Segmented Neutrophils (42.2 - 75.2 %) 72 Band Neutrophils (0.0 - 5.0 %) 14 H Absolute Lymphocytes (1.2 - 3.4 /CUMM) 1.1 L Lymphocytes (20.5 - 51.1 %) 4 L Monocytes (1.7 - 9.3 %) 9 Absolute Monocytes (0.10 - 0.60 /CUMM) 0.1 Absolute Eosinophils (0.0 - 0.7 /CUMM) 0 Absolute Basophils (0.0 - 0.2 /CUMM) 0 Metamyelocytes (0.0 - 1.0 %) 1 Platelet Estimate (ADEQUATE) ADEQUATE Hypochromic-Microcytic 1+ Poikilocytosis 1+ Ovalocytes 1+ Other Body Source Fld Total RBCs Counted (%) 100 Last 24 Hours of Red Results: Blood cultures July 29 negative Recent Imaging Studies: CTA of the chest July 31 bibasilar densities with small bilateral pleural effusions Assessment/Plan ID Impression: Continues to improve, with temperatures remaining normal (on steroids) with white blood cell count also now normal on Ceftriaxone and Azithromycin Day 3 of treatment for sepsis, most likely secondary to pneumonia, with a persistent cough, respiratory failure, requiring high flow oxygen, and with her most recent CT scan revealing bibasilar densities. There appears to be an element of fluid overload as well, which may in part explain her continued respiratory failure. Suggestion: 1. Remove Muir catheter once I's and O's are stable 2. Continue Ceftriaxone and Azithromycin
[2017-08-01 16:00] VITALS: BP 120/70
--- NOTE | 2017-08-01 19:19 | PN- Cardiology ---
Subjective Subjective: * Patient continues to report shortness of breath. No chest discomfort. * sinus rhythm * cardiac enzymes are coming down * Improved H/H after transfusion * Oxygen requirements are increasing. Emphysema and basilar consolidation noted on her chest CT. Small pleural effusions. No central or segmental pulmonary emboli noted. * elevated D-dimer Objective Vital Signs and I&Os Vital Signs Date Time Temp Pulse Resp B/P B/P Pulse O2 O2 Flow FiO2 Mean Ox Delivery Rate 08/01 1600 90 Nasal 95% Cannula 08/01 1600 99.0 72 18 120/70 90 Nasal 95% Cannula 08/01 1234 91 Nasal 100% Cannula 08/01 1200 Nasal 70% Cannula 08/01 1050 91 Nasal 70% Cannula 08/01 0928 93 Nasal 70% Cannula 08/01 0800 90 Nasal 75% Cannula 08/01 0800 97.8 65 130/70 90 Nasal 70% Cannula 08/01 0400 93 Nasal 65% Cannula 08/01 0000 90 Nasal 65% Cannula 08/01 0000 97.0 82 14 142/60 90 Nasal 65% Cannula 07/31 2349 89 Nasal 60% Cannula 07/31 2208 93 Nasal 60% Cannula 07/31 1999 92 Nasal 60% Cannula 07/31 1931 94 Nasal 65% Cannula Intake & Output 08/01 1600 08/01 0800 08/01 0000 07/31 1600 07/31 0800 07/31 0000 Intake Total 437 496 400 250 100 675 Output Total 1200 271 439 9814 1150 1775 Balance -763 96 -200 -1050 -1050 -1100 Intake, IV 437 496 400 250 100 675 Intake, Oral 0 0 Intake, Tube 0 Feeding Number 0 0 0 Bowel Movements Output, Urine 1200 632 693 1320 1150 1775 Patient 89 lb 15.99 oz Weight Physical Exam: General: WD/WN male in NAD; alert and oriented x 3 HEENT: NC/AT, PERRL, EOMI Neck: no JVD, no carotid bruit Heart: RRR w/o murmur Lungs: clear bilaterally Abdomen: soft, NT, +ve bowel sounds Extremities; no edema with venous stasis changes, legs are ecchymotic Assessment/Plan Assessment/Plan * This patient had an elevated troponin which was initially attributed to demand ischemia. She continues to have shortness of breath despite being on high flow oxygen and despite her chest X-ray to a large extent clearing. In consideration of these facts and a very elevated D-dimer a CT angiogram was done to assess for a PE. This study did not show any central or segmental pulmonary emboli. If the patient continues to demonstrate a respiratory status disproportionate to her pulmonary findings I would consider peripheral embolization which is a potential situation due to the late acquisition of her CT angiogram as central thrombus may already have been breaking up. If suspected it would be reasonable to begin IV heparin. Would obtain a repeat ABG after lowering her supplemental oxygen to evaluate her pO2. * We will continue to treat for demand ischemia with type 2 [place] in the setting of severe anemia and the physiologic stress of infection. She denies chest discomfort and does not demonstrate any ischemic ST-T changes. She does have coronary calcifications of her chest CT indicative of some degree of coronary artery disease but an ACS characterized by ruptured plaque is not suspected. Ensure adequate oxygenation. Monitor on telemetry in the CCU. We will hold off on a statin since her hepatic transaminases are elevated at present. * Obtain an echocardiogram * This patient's blood pressue is improved. Her prior hypotension is may have been related to sepsis, volume loss in the setting of bleeding or adrenal insufficiency due to being on prolonged steroid therapy. Continue antibiotic therapy as recommended by Dr. Olvera and continue steroids. * It should be noted that hydroxychloroquine is associated with diarrhea, bruising and anemia. Continue telemetry? Yes
[2017-08-01 20:24] LABS: PT 11.7 SEC (9.4-12.5); PTT 27 SEC (25-37)
[2017-08-02] VITALS: BP 146/68
[2017-08-02 04:44] LABS: ABSOLUTE BASOPHIL COUNT 0 /CUMM (0.0-0.2); ABSOLUTE EOSINOPHIL COUNT 0 /CUMM (0.0-0.7); ABSOLUTE GRANULOCYTE CT 1.6 /CUMM (1.4-6.5); BASOPHIL % 0 % (0.0-2.0); MEAN PLATELET VOLUME 9.4 FL (7.4-10.4); RBC DISTRIBUTION WIDTH 22.6 % (11.5-14.5); WHITE BLOOD CELL COUNT 3.7 /CUMM (4.8-10.8)
[2017-08-02 04:49] LABS: ABSOLUTE LYMPH COUNT 1.5 /CUMM (1.2-3.4); ABSOLUTE MONOCYTE COUNT 0.7 /CUMM (0.10-0.60); EOSINOPHIL % 0.6 % (0-5); GRANULOCYTE % 41.7 % (42.2-75.2); MEAN CORPUSCULAR HGB 29.6 PG (27.0-31.0); MEAN CORPUSCULAR HGB CONC 31.7 G/DL (33.0-37.0); MEAN CORPUSCULAR VOLUME 93.4 FL (81.0-99.0); PLATELET COUNT 88 /CUMM (130-400)
[2017-08-02 05:45] LABS: HEMATOCRIT 39.2 % (37-47)
--- NOTE | 2017-08-02 07:38 | PN- Hematology ---
Subjective Subjective: She feels a little better with her breathing. She remains on hi-flow oxygen. She did not chest pain this morning. It has went away. She denies any fever or chills. She denies any nausea or vomiting. Review of Systems Constitutional: Denies: chills, fever. Cardiovascular: Reports: chest pain (resolved). Respiratory: Reports: short of breath. Denies: cough. Gastrointestinal: Denies: abdominal pain. Musculoskeletal: Denies: back pain. Neurological/Psychological: Denies: confusion. All Other Systems: Reviewed and Negative Objective Vital Signs and I&Os Vital Signs Date Time Temp Pulse Resp B/P B/P Pulse O2 O2 Flow FiO2 Mean Ox Delivery Rate 08/02 0400 91 Nasal 60% Cannula 08/02 0209 94 Nasal 60% Cannula 08/02 0000 98.2 64 14 146/68 93 Nasal 65% Cannula 08/02 0000 93 Nasal 65% Cannula 08/01 2030 92 Nasal 65% Cannula 08/01 2000 89 Nasal 60% Cannula 08/01 1600 90 Nasal 95% Cannula 08/01 1600 99.0 72 18 120/70 90 Nasal 95% Cannula 08/01 1234 91 Nasal 100% Cannula 08/01 1200 Nasal 70% Cannula 08/01 1050 91 Nasal 70% Cannula 08/01 0928 93 Nasal 70% Cannula 08/01 0800 90 Nasal 75% Cannula 08/01 0800 97.8 65 130/70 90 Nasal 70% Cannula Intake & Output 08/02 0800 08/02 0000 08/01 1600 08/01 0800 08/01 0000 07/31 1600 Intake Total 675 396 437 496 400 250 Output Total 571 389 8906 148 661 4644 Balance -175 -174 -763 96 -200 -1050 Intake, IV 675 396 437 496 400 250 Intake, Oral 0 0 0 Intake, Tube 0 Feeding Number 0 0 0 0 0 Bowel Movements Output, Urine 629 020 2446 096 281 5771 Patient 40.823 kg Weight Physical Exam: General Appearance: no apparent distress, alert, awake, comfortable Head: atraumatic, normal appearance Ears, Nose, Throat: normal pharynx Respiratory: chest non-tender, no respiratory distress, quiet respiration, on highflow oxygen Cardiovascular: regular rate/rhythm Abdomen: normal bowel sounds, soft, non-tender Extremities: no edema Neurologic/Psychiatric: awake, alert, oriented x 3 Skin: hyperpigmented/ecchymoses on the lower extremities and in the hands Current Medications: Current Medications Sig/Zeb Start time Last Medication Dose Route Stop Time Status Admin Acetaminophen 1,000 MG ONCE ONE 08/01 2014 DC 08/01 N/A 1 UNIT IV 08/01 Albuterol Sulfate 3 ML BID 08/01 2199 AC 08/01 INH 2030 Albuterol Sulfate 3 ML Q4P PRN 07/29 220 DC 08/01 INH 1048 Azithromycin 500 MG 07/30 AC 08/01 Dextrose/Water 250 ML IV 2347 Ceftriaxone Sodium 1,000 MG DAILY 07/30 1159 AC 08/01 IV 1002 Dextrose/Sodium 1,000 ML Q20H 07/31 1030 DC 08/01 Chloride IV 0826 Furosemide 20 MG ONCE ONE 08/02 0300 DC 08/02 IV 08/02 0301 0307 Furosemide 20 MG ONCE ONE 08/01 1230 DC 08/01 IV 08/01 1231 1226 Methylprednisolone 40 MG DAILY 08/01 1000 AC 08/01 IV 1002 Nitroglycerin 0.4 MG ONCE ONE 08/02 0415 DC 08/02 SL 08/02 0416 0405 Nitroglycerin 0.4 MG Q 5 MINUTES X 3 DO.. 08/02 0415 AC 08/02 SL 0508 Pantoprazole Sodium 40 MG DAILY 07/30 220 AC 08/01 IV 1002 Potassium Chloride 10 MEQ Q1H 08/02 0300 DC 08/02 IV 08/02 0401 0419 Potassium Chloride 10 MEQ ONCE ONE 08/01 2130 DC 08/01 IV 08/01 213 2308 Potassium Chloride 10 MEQ Q1H 08/01 1915 DC 08/01 IV 08/01 Potassium Chloride 10 MEQ Q1H 08/01 0900 DC 08/01 IV 08/01 1001 1155 Sodium Chloride 2 SPRAY Q4P PRN 07/31 1715 AC 07/31 KRYSTYNA 1735 Results Last 24 Hours of Lab Results: Laboratory Tests 08/02 08/02 08/02 0620 0410 0140 Chemistry Sodium (137 - 145 mmol/L) 137 139 Potassium (3.5 - 5.1 mmol/L) 3.8 3.4 L Chloride (98 - 107 mmol/L) 94 L 98 Carbon Dioxide (22 - 30 mmol/L) 34 H 32 H Anion Gap (5 - 16) 9 9 BUN (7 - 17 mg/dL) 25 H 24 H Creatinine (0.5 - 1.0 mg/dL) 0.6 0.7 Estimated GFR (>60 ml/min) > 60 > 60 Glucose (65 - 99 mg/dL) 91 133 H Calcium (8.4 - 10.2 mg/dL) 8.1 L 8.0 L Phosphorus (2.5 - 4.5 mg/dL) 3.0 3.3 Magnesium (1.6 - 2.3 mg/dL) 1.7 1.8 Total Bilirubin (0.2 - 1.3 mg/dL) 0.5 0.3 AST (14 - 36 U/L) 77 H 66 H ALT (9 - 52 U/L) 49 50 Troponin I (< 0.11 ng/ml) 0.04 Albumin (3.5 - 5.0 g/dL) 2.9 L 2.7 L Hematology CBC w Diff MAN DIFF ORDERED WBC (4.8 - 10.8 /CUMM) 3.7 L RBC (4.20 - 5.40 /CUMM) 4.20 Hgb (12.0 - 16.0 G/DL) 12.4 Hct (37 - 47 %) 39.2 MCV (81.0 - 99.0 FL) 93.4 MCH (27.0 - 31.0 PG) 29.6 MCHC (33.0 - 37.0 G/DL) 31.7 L RDW (11.5 - 14.5 %) 22.6 H Plt Count (130 - 400 /CUMM) 88 L MPV (7.4 - 10.4 FL) 9.4 Gran % (42.2 - 75.2 %) 41.7 L Lymphocytes % (20.5 - 51.1 %) 39.0 Monocytes % (1.7 - 9.3 %) 18.7 H Eosinophils % (0 - 5 %) 0.6 Basophils % (0.0 - 2.0 %) 0 Absolute Granulocytes (1.4 - 6.5 /CUMM) 1.6 Segmented Neutrophils (42.2 - 75.2 %) 62 Band Neutrophils (0.0 - 5.0 %) 10 H Absolute Lymphocytes (1.2 - 3.4 /CUMM) 1.5 Lymphocytes (20.5 - 51.1 %) 19 L Monocytes (1.7 - 9.3 %) 9 Absolute Monocytes (0.10 - 0.60 /CUMM) 0.7 H Absolute Eosinophils (0.0 - 0.7 /CUMM) 0 Absolute Basophils (0.0 - 0.2 /CUMM) 0 Nucleated RBCs (0.0 - 0.0 /100WBC) 4 H Platelet Estimate (ADEQUATE) DECREASED Anisocytosis 1+ Macrocytic Cells 1+ Target Cells 1+ 08/01 Blood Gas pH (7.35 - 7.45 PH) 7.51 H pCO2 (35 - 45 TORR) 40 pO2 (80 - 100 TORR) 55 L HCO3 (21 - 28 MEQ/L) 31 H ABG O2 Sat (Measured) (>96.0 %) 89.0 L P-50 (Temp Corrected) N Carboxyhemoglobin (1.5 - 5.0 %) 0.5 L O2 Concentration % 60% Temperature (97.0 - 100.0 FARH) 98.3 O2 Delivery Method HFNC AT 40 Chemistry Sodium (137 - 145 mmol/L) 141 Potassium (3.5 - 5.1 mmol/L) 2.5 *L Chloride (98 - 107 mmol/L) 95 L Carbon Dioxide (22 - 30 mmol/L) 33 H Anion Gap (5 - 16) 13 BUN (7 - 17 mg/dL) 20 H Creatinine (0.5 - 1.0 mg/dL) 0.8 Estimated GFR (>60 ml/min) > 60 Glucose (65 - 99 mg/dL) 98 Calcium (8.4 - 10.2 mg/dL) 8.3 L Phosphorus (2.5 - 4.5 mg/dL) 2.8 Magnesium (1.6 - 2.3 mg/dL) 1.8 Total Bilirubin (0.2 - 1.3 mg/dL) 0.4 AST (14 - 36 U/L) 73 H ALT (9 - 52 U/L) 57 H Albumin (3.5 - 5.0 g/dL) 2.8 L Coagulation PT (9.4 - 12.5 SEC) 11.7 INR (0.90 - 1.19) 1.12 APTT (25 - 37 SEC) 27 Fibrinogen Activity (200 - 393 MG/DL) 588 H D-Dimer High Sensitivty (0 - 243 ng/ml) 2288 H Miscellaneous Phlebotomy Draw Site RIGHT RADIAL Assessment/Plan Hematology Assessment/Recommendations: Ms. Aguirre is an 86-year-old female with myelodysplastic syndrome and chronic anemia requiring blood transfusions, lupus on hydroxychloroquine and prednisone, GERD, COPD, and hypertension who was brought to the hospital for further evaluation of diarrhea and weakness. She was noted to have severe anemia and hypoxia respiratory failure. Respiratory status is slowly improving. DIC seems to also be improving and being monitored currently. Platelet count and WBC continues to fluctuate. She does not need any intervention for the cytopenia for now. Sepsis: -antibiotics as per primary/ID DIC: -monitor PT/PTT/fibrinogen Pancytopenia: -continue monitoring CBC Please call [phone] with any questions or concerns. Problem List: 1. Thrombocytopenia 2. Chronic anemia 3. UTI (urinary tract infection) 4. MDS (myelodysplastic syndrome)
--- NOTE | 2017-08-02 07:52 | PN- Resident CRCU ---
Yakov PROCTOR,Prabha 08/02/17 0752: Subjective HPI/CRCU Issues: Saw patient at bedside this a.m. Overnight, she had one episode of chest pain that seemed to ameliorate with nitrate. EKG and troponin within normal limits. Patient stated overall she felt about the same. She was pending a swallow eval and MBS this morning. Vitals: Temperature 97.9 to 100, heart rate between 62 and 92, blood pressure between 116/70 and 157/76. Wean down from 100% FiO2 on high flow nasal cannula to 65% on high flow then switched to a nasal pendant. Satting between 88 and 97. Blood gas last night: 7.51, 40, 31. Total in: 8596. Total out: 10,090. 24 Hour Events: -- Objective Vital Signs & I&O Last 8 Hrs of Vitals and I&O: -- Exam General Appearance: well developed/nourished, no apparent distress, comfortable Head: atraumatic, normal appearance Ears, Nose, Throat: normal pharynx, nc IN PLACE Neck: normal inspection, supple Respiratory: + Crackles in bases. no wheezes appreciated. Cardiovascular: no edema Gastrointestinal: soft, non-tender Extremities: significant ecchymoses present in bilat le adn in her arms. no active area s of bleeding Impression/Plan Impression/Problem List Impression: This is a 86-year-old lady with past medical history significant for myelodysplastic syndrome and chronic anemia requiring blood transfusions, lupus on hydroxychloroquine and prednisone, GERD, hx of COPD, and hypertension who was brought to the hospital for further evaluation of diarrhea and weakness. She was foung to be in sepsis with profound anemia. Initially she was hypotensive but responded well to fluids and adjunctive theraphy. Her progress has been hindered by worsening respiratory distress requiring hi-flow O2 and repeat failed swallow evals. PLAN: Respiratory: Acute hypoxic respiratory failure: Doing much better today. Switched to nasal pendant from high flow. She does have sig hx smoking with evidence of emphysema in CTA. Dimer markedly elevated but no evidence of PE on CTA. There are some infiltrates on CT with minor pleural effusion. * Solumedrol dose decreased--> Plan is to taper her back to her home dose of steroids in the next two days * PRN diuresis. * Pt is very clear about her wishes and has articulated multiple times in room with family present that she wants to be intubated and wants all aggressive measures to be performed if necessary. * HOB elevated * NEBS prn History of COPD: * Nebs * Solumedrol as above Infectious disease: Sepsis: Given that most pertinent finding on CT Chest abdomen and pelvis was possible consolidation in chest most likely source of infection is PNA, though she is growing pansensitive ecoli in urine. Pt does not have any urinary symptoms at this time. * Monitor berger cultures * Continue Azithromycin/ceftriaxone duration per ID * Appreciate ID consult * Follow-up Sputum cx Cardiovascular: Elevated troponin: Resolved .Patient's troponin peaked at 0.28 on July 29. Thought to be secondary to demand due to low hemoglobin and sepsis. Per [employer] worker, transfusion recommendations are 10 and 28. Unfortunately later today pt complained of CP and her trop became positive and continues to rise. So far peak .52, w/o EKG changes. After speaking with family adn explaining risks the plan is to proceed with heparin drip per cardio recomendations. Will do more frequent CBC and monitor very closely. In this pt with hx of GI bleed, MDS, chronic anemia, and DIC when she first came in, risks and benefits were weighed. Note that pt has been guiac + multiple times during this admission. In context of chest pain, and uptrending trops will treat for ACS. Will re-evaluate pending pt's hospital course. * Appreciate cardiology recommendations * Per Cardiology given transamanitis will hold off on starting her on a statin * Careful monitoring of H/H. Heme oncology: MDS with chronic anemia: After 2u PRBC pt had hb 5.5--> 12.4 today around 10. Unsure of the synergistic jump in hematocrit given only two units. Repeat values suggest that the jump in Hb is accurate. * Initially DIC panel positive for very low Fibrinogen; repeat shows elevated fibrinogen. * Appreciate Heme/Onc recs * Will give FFP if active bleeding * Monitor DIC panel History of lupus: Patient is on hydroxychloroquine and prednisone 10 mg daily at home for treatment of lupus. This medication is associated with leukopenia, thrombocytopenia and aplastic anemia along with hemolysis. Note that after discontinuing medication her counts seem to have significantly improved. * Continue to hold hydroxychloroquine * Continue steroid Metabolic: Hypokalemia: * Replete Alimentary: Failed swallow eval: * As such currently nothing by mouth * Very low rate of IVF had to be held due to c/o volume overload Transamanitis: Unsure of etiology. Transamanitis in 100s since admission. Unsure if her coagulopathy is secondary to liver/DIC. ??fx of hydroxychloroquine. Nephro: * No issues DVT prophylaxis ALPS for c/o bleeding GI ppx on board Muir in place FC NPO Problem List: 1. Thrombocytopenia 2. Elevated troponin 3. Hypokalemia Pain Ratin Tomorrow's Labs & Rationales: cbc icu Plan DVT/Prophylaxis: mechanical Marck Blackwell MD 08/02/17 1342: Objective Current Medications: Current Medications Sig/Zeb Start time Last Medication Dose Route Stop Time Status Admin Albuterol Sulfate 3 ML BID 08/01 2199 AC 08/04 INH 0746 Azithromycin 500 MG 07/30 AC 08/03 Dextrose/Water 250 ML IV 2217 Ceftriaxone Sodium 1,000 MG DAILY 07/30 1159 AC 08/04 IV 1127 Furosemide 40 MG ONCE ONE 08/04 1015 DC 08/04 IV 08/04 1016 1128 Furosemide 20 MG ONCE ONE 08/03 1615 DC 08/03 IV 08/03 1616 1638 Heparin Sodium 25,000 UNIT Q24H 08/02 1945 AC 08/02 (Porcine) IV 08/05 1800 2224 Sodium Chloride 500 ML Hydrocortisone 40 MG DAILY 08/04 1000 AC 08/04 Sodium Succinate IV 1128 Lidocaine 1 PAT ONCE ONE 08/04 1130 DC EXT 08/04 1131 Magnesium Oxide 400 MG ONE ONE 08/04 0630 CAN PO 08/04 0631 Magnesium Sulfate 1 GM ONCE ONE 08/04 0945 AC 08/04 Dextrose/Water 100 ML IV 08/04 1344 1124 Nitroglycerin 1 GM Q6 08/02 2359 AC 08/04 TOP 0619 Pantoprazole Sodium 40 MG DAILY 07/30 2200 AC 08/04 IV 1127 Potassium Chloride 10 MEQ ONCE ONE 08/04 0945 DC 08/04 IV 08/04 0946 1124 Potassium Chloride 40 MEQ ONCE ONE 08/04 0630 CAN PO 08/04 0631 Potassium Chloride 20 MEQ BID 08/03 1102 DC 08/03 PO 2215 Prednisone 10 MG DAILY 08/04 1000 CAN PO Sodium Chloride 2 SPRAY Q4P PRN 07/31 1715 AC 07/31 KRYSTYNA 1735 Attending MD Review Statement Attending Sign Off Attending Cosign Statement: I have: examined this patient, reviewed [employer] EMR data, personally reviewd images, discussd w/resident/PA/CLIPPER MACHINE OPERATOR, discussed mgmt plan w/monique, discussed mgmt plan w/CM, discussed mgmt plan w/pt, agreed w/resident/PA/CLIPPER MACHINE OPERATOR, amended to note. Other Findings: Impression 86 year old woman hx of MDS/Anemia acute hypoxemic respiratory failure sepsis - likely urinary vs GI source troponinemia Plan Respiratory -titrate as needed to keep spo2 >92% ID -f/u ID recs regarding abx -scan pending CVS -cardiology consulted -f/u recommendations -no evidence of PE Heme -f/u hematology recs Metabolic -electrolyte improved -taper steroids Alimentary -NPO for now, failed swallow eval, if not passing swallow eval may require parenteral nutrition, awaiting MBS Neuro -alert Full Code TTS 35 min
[2017-08-02 08:00] VITALS: BP 130/70
--- NOTE | 2017-08-02 10:09 | RADIOLOGY REPORT ---
EXAMINATION: XR PORTABLE ABDOMEN CLINICAL INFORMATION: Abdominal pain and constipation. COMPARISON: CT images from 07/30/2017 TECHNIQUE: AP view of the abdomen. FINDINGS: On this limited single AP view of the abdomen, there is mild gaseous distention of bowel. Gas is seen to level the rectum. No evidence of bowel obstruction or overt pneumoperitoneum. There is no excessive fecal material within the colon or rectum. Findings in the visualized chest include cardiomegaly and persistent small pleural effusions. Mild dextroscoliosis of severely degenerated lumbar spine. IMPRESSION: Mild, nonspecific gaseous distention of the bowel without bowel obstruction. Consider possibility of mild ileus. No overt pneumoperitoneum observed on this limited single view exam.
--- NOTE | 2017-08-02 11:07 | PN- Infect Dx ---
Subjective Subjective: Afebrile on steroids. She had lower chest pain earlier today but this has now resolved and she overall feels improved. She apparently failed her swallowing evaluation yesterday. Objective Last 24 Hrs of Vital Signs/I&O Vital Signs Date Time Temp Pulse Resp B/P B/P Pulse O2 O2 Flow FiO2 Mean Ox Delivery Rate 08/02 0800 97 Nasal 70% Cannula 08/02 0800 98.0 70 18 130/70 97 Nasal 70% Cannula 08/02 0400 91 Nasal 60% Cannula 08/02 0209 94 Nasal 60% Cannula 08/02 0000 98.2 64 14 146/68 93 Nasal 65% Cannula 08/02 0000 93 Nasal 65% Cannula 08/01 2030 92 Nasal 65% Cannula 08/01 2000 89 Nasal 60% Cannula 08/01 1600 90 Nasal 95% Cannula 08/01 1600 99.0 72 18 120/70 90 Nasal 95% Cannula 08/01 1234 91 Nasal 100% Cannula 08/01 1200 Nasal 70% Cannula Intake & Output 08/02 1600 08/02 0800 08/02 0000 Intake Total 675 396 Output Total 850 570 Balance -175 -174 Intake, IV 675 396 Intake, Oral 0 Number 0 0 Bowel Movements Output, Urine 850 570 Physical Exam Other Physical Findings: She appears comfortable on the nasal pendant. Lungs mostly clear Chest no tenderness on palpation Heart regular rhythm with no murmur Abdomen is soft, nontender with positive bowel sounds Extremities bilateral lower extremity ecchymoses Muir catheter remains in place Results Last 24 Hours of Lab Results: Laboratory Tests 08/02 08/02 08/02 0950 0620 0410 Chemistry Sodium (137 - 145 mmol/L) 137 Potassium (3.5 - 5.1 mmol/L) 3.8 Chloride (98 - 107 mmol/L) 94 L Carbon Dioxide (22 - 30 mmol/L) 34 H Anion Gap (5 - 16) 9 BUN (7 - 17 mg/dL) 25 H Creatinine (0.5 - 1.0 mg/dL) 0.6 Estimated GFR (>60 ml/min) > 60 Glucose (65 - 99 mg/dL) 91 Calcium (8.4 - 10.2 mg/dL) 8.1 L Phosphorus (2.5 - 4.5 mg/dL) 3.0 Magnesium (1.6 - 2.3 mg/dL) 1.7 Total Bilirubin (0.2 - 1.3 mg/dL) 0.5 AST (14 - 36 U/L) 77 H ALT (9 - 52 U/L) 49 Troponin I (< 0.11 ng/ml) Pending 0.04 Albumin (3.5 - 5.0 g/dL) 2.9 L Hematology CBC w Diff MAN DIFF ORDERED WBC (4.8 - 10.8 /CUMM) 3.7 L RBC (4.20 - 5.40 /CUMM) 4.20 Hgb (12.0 - 16.0 G/DL) 12.4 Hct (37 - 47 %) 39.2 MCV (81.0 - 99.0 FL) 93.4 MCH (27.0 - 31.0 PG) 29.6 MCHC (33.0 - 37.0 G/DL) 31.7 L RDW (11.5 - 14.5 %) 22.6 H Plt Count (130 - 400 /CUMM) 88 L MPV (7.4 - 10.4 FL) 9.4 Gran % (42.2 - 75.2 %) 41.7 L Lymphocytes % (20.5 - 51.1 %) 39.0 Monocytes % (1.7 - 9.3 %) 18.7 H Eosinophils % (0 - 5 %) 0.6 Basophils % (0.0 - 2.0 %) 0 Absolute Granulocytes (1.4 - 6.5 /CUMM) 1.6 Segmented Neutrophils (42.2 - 75.2 %) 62 Band Neutrophils (0.0 - 5.0 %) 10 H Absolute Lymphocytes (1.2 - 3.4 /CUMM) 1.5 Lymphocytes (20.5 - 51.1 %) 19 L Monocytes (1.7 - 9.3 %) 9 Absolute Monocytes (0.10 - 0.60 /CUMM) 0.7 H Absolute Eosinophils (0.0 - 0.7 /CUMM) 0 Absolute Basophils (0.0 - 0.2 /CUMM) 0 Nucleated RBCs (0.0 - 0.0 /100WBC) 4 H Platelet Estimate (ADEQUATE) DECREASED Anisocytosis 1+ Macrocytic Cells 1+ Target Cells 1+ 08/02 Blood Gas pH (7.35 - 7.45 PH) 7.51 H pCO2 (35 - 45 TORR) 40 pO2 (80 - 100 TORR) 55 L HCO3 (21 - 28 MEQ/L) 31 H ABG O2 Sat (Measured) (>96.0 %) 89.0 L P-50 (Temp Corrected) N Carboxyhemoglobin (1.5 - 5.0 %) 0.5 L O2 Concentration % 60% Temperature (97.0 - 100.0 FARH) 98.3 O2 Delivery Method HFNC AT 40 Chemistry Sodium (137 - 145 mmol/L) 139 141 Potassium (3.5 - 5.1 mmol/L) 3.4 L 2.5 *L Chloride (98 - 107 mmol/L) 98 95 L Carbon Dioxide (22 - 30 mmol/L) 32 H 33 H Anion Gap (5 - 16) 9 13 BUN (7 - 17 mg/dL) 24 H 20 H Creatinine (0.5 - 1.0 mg/dL) 0.7 0.8 Estimated GFR (>60 ml/min) > 60 > 60 Glucose (65 - 99 mg/dL) 133 H 98 Calcium (8.4 - 10.2 mg/dL) 8.0 L 8.3 L Phosphorus (2.5 - 4.5 mg/dL) 3.3 2.8 Magnesium (1.6 - 2.3 mg/dL) 1.8 1.8 Total Bilirubin (0.2 - 1.3 mg/dL) 0.3 0.4 AST (14 - 36 U/L) 66 H 73 H ALT (9 - 52 U/L) 50 57 H Albumin (3.5 - 5.0 g/dL) 2.7 L 2.8 L Coagulation PT (9.4 - 12.5 SEC) 11.7 INR (0.90 - 1.19) 1.12 APTT (25 - 37 SEC) 27 Fibrinogen Activity (200 - 393 MG/DL) 588 H D-Dimer High Sensitivty (0 - 243 ng/ml) 2288 H Miscellaneous Phlebotomy Draw Site RIGHT RADIAL Last 24 Hours of Red Results: No new cultures Recent Imaging Studies: Abdominal x-ray August 02 reveals mild, nonspecific gaseous distention of the bowel Assessment/Plan ID Impression: Continues to improve, with temperatures remaining normal (on steroids) and white blood cell count also now normal, with decreased bands, on Ceftriaxone and Azithromycin Day 4 of treatment for sepsis, most likely secondary to pneumonia, with further improvement in her respiratory status. Her mild leukopenia and thrombocytopenia may be secondary to sepsis versus her underlying myelodysplastic syndrome. Suggestion: 1. Remove Muir catheter 2. Continue Ceftriaxone and Azithromycin Ruth Ann Martini MD will be covering until August 12
--- NOTE | 2017-08-02 14:44 | RADIOLOGY REPORT ---
EXAMINATION: XR MODIFIED BARIUM SWALLOW CLINICAL INFORMATION: Unable to swallow. COMPARISON: None TECHNIQUE: Modified barium swallow study was performed with speech therapist. FINDINGS: No evidence of any penetration or aspiration noted. FLUOROSCOPY TIME: 1 minute 40 seconds NUMBER OF IMAGES: 13 images IMPRESSION: No evidence of aspiration or penetration is noted. A full procedural detail and a separate report will be dictated by the speech therapist.
[2017-08-02 16:00] VITALS: BP 138/62
--- NOTE | 2017-08-02 17:34 | PN- Cardiology ---
Subjective Subjective: * Patient is less short of breath and is on a nasal cannula. Earlier today she had some epigastric verses chest discomfort. * sinus rhythm * cardiac enzymes are elevated * Improved H/H Objective Vital Signs and I&Os Vital Signs Date Time Temp Pulse Resp B/P B/P Pulse O2 O2 Flow FiO2 Mean Ox Delivery Rate 08/02 1640 Nasal 8L Cannula 08/02 1600 97 Nasal 6.0L Cannula 08/02 1600 99.0 60 12 138/62 99 Ventilator 25% 08/02 1200 90 Nasal 8L Cannula 08/02 1104 97 Nasal 8L Cannula 08/02 0800 97 Nasal 70% Cannula 08/02 0800 98.0 70 18 130/70 97 Nasal 70% Cannula 08/02 0400 91 Nasal 60% Cannula 08/02 0209 94 Nasal 60% Cannula 08/02 0000 98.2 64 14 146/68 93 Nasal 65% Cannula 08/02 0000 93 Nasal 65% Cannula 08/01 2030 92 Nasal 65% Cannula 08/01 2000 89 Nasal 60% Cannula Intake & Output 08/02 1600 08/02 0800 08/02 0000 08/01 1600 08/01 0800 08/01 0000 Intake Total 180 675 396 437 496 400 Output Total 250 078 925 6866 400 600 Balance -70 -175 -174 -763 96 -200 Intake, IV 180 675 396 437 496 400 Intake, Oral 0 0 Number 0 0 0 0 0 0 Bowel Movements Output, Urine 250 649 173 9257 400 600 Physical Exam: General: WD/WN male in NAD; alert and oriented x 3 HEENT: NC/AT, PERRL, EOMI Neck: no JVD, no carotid bruit Heart: RRR w/o murmur Lungs: clear bilaterally Abdomen: soft, NT, +ve bowel sounds Extremities; no edema with venous stasis changes, legs are ecchymotic Assessment/Plan Assessment/Plan * This patient had an elevated troponin which was initially attributed to demand ischemia. her enzyme are trending up although there are no ST elevations suggestive of an acute injury current. In consideration of her comorbidities she should be treated medically. Begin NTG paste 1 inch Q6 hrs. Begin IV heparin with careful monitoring of her H/H and Platelets. Guaiac all stools and watch for bleeding. Ensure adequate oxygenation. Monitor on telemetry in the CCU. We will hold off on a statin since her hepatic transaminases are elevated at present. * This patient's blood pressue is improved. Her prior hypotension is may have been related to sepsis, volume loss in the setting of bleeding or adrenal insufficiency due to being on prolonged steroid therapy. Continue antibiotic therapy as recommended by Dr. Olvera and continue steroids. * It should be noted that hydroxychloroquine is associated with diarrhea, bruising and anemia. Her anemia improved after stopping this medication. Continue telemetry? Yes
[2017-08-02 18:47] LABS: ABSOLUTE BASOPHIL COUNT 0 /CUMM (0.0-0.2); ABSOLUTE EOSINOPHIL COUNT 0 /CUMM (0.0-0.7); ABSOLUTE GRANULOCYTE CT 0.5 /CUMM (1.4-6.5); ABSOLUTE LYMPH COUNT 1.5 /CUMM (1.2-3.4); ABSOLUTE MONOCYTE COUNT 0.3 /CUMM (0.10-0.60); BASOPHIL % 0 % (0.0-2.0); EOSINOPHIL % 0 % (0-5); GRANULOCYTE % 21.9 % (42.2-75.2); HEMATOCRIT 39.5 % (37-47); MEAN CORPUSCULAR HGB 29.7 PG (27.0-31.0); MEAN CORPUSCULAR HGB CONC 32.1 G/DL (33.0-37.0); MEAN CORPUSCULAR VOLUME 92.5 FL (81.0-99.0); RBC DISTRIBUTION WIDTH 22.5 % (11.5-14.5); RED BLOOD CELL CT 4.27 /CUMM (4.20-5.40)
[2017-08-02 19:01] LABS: PLATELET COUNT 81 /CUMM (130-400); WHITE BLOOD CELL COUNT 2.3 /CUMM (4.8-10.8)
--- NOTE | 2017-08-02 22:44 | RADIOLOGY REPORT ---
EXAMINATION: XR PORTABLE CHEST CLINICAL INFORMATION: Hypoxia. Concern for aspiration or pulmonary edema. COMPARISON: Chest x-ray 07/31/2017 , 07/30/2017. CT chest 07/31/2017. Chest x-ray 07/02/2017 TECHNIQUE: Portable frontal view of the chest was obtained. 10:07 PM FINDINGS: There is persistent mild central pulmonary vascular congestion. This is similar to chest x-ray 07/31/2017. There is no overt edema however. There are bilateral pleural effusions blunting the costophrenic angle which are moderate in volume. Linear density above both diaphragms of subsegmental atelectasis. No dense consolidation. IMPRESSION: 1. Persistent mild pulmonary vascular congestion. There are bilateral pleural effusions now present. 2. No dense consolidation. Linear atelectasis at lung bases.
[2017-08-03] VITALS: BP 112/64
[2017-08-03 05:12] LABS: ABSOLUTE BASOPHIL COUNT 0 /CUMM (0.0-0.2); ABSOLUTE EOSINOPHIL COUNT 0 /CUMM (0.0-0.7); ABSOLUTE GRANULOCYTE CT 0.3 /CUMM (1.4-6.5); ABSOLUTE LYMPH COUNT 1.5 /CUMM (1.2-3.4); ABSOLUTE MONOCYTE COUNT 0.2 /CUMM (0.10-0.60); BASOPHIL % 0 % (0.0-2.0); EOSINOPHIL % 0 % (0-5); GRANULOCYTE % 14.5 % (42.2-75.2); HEMATOCRIT 39.2 % (37-47); MEAN CORPUSCULAR HGB 29.6 PG (27.0-31.0); MEAN CORPUSCULAR HGB CONC 31.9 G/DL (33.0-37.0); MEAN PLATELET VOLUME 9.7 FL (7.4-10.4); PLATELET COUNT 76 /CUMM (130-400); RBC DISTRIBUTION WIDTH 22.2 % (11.5-14.5); RED BLOOD CELL CT 4.22 /CUMM (4.20-5.40); WHITE BLOOD CELL COUNT 2.1 /CUMM (4.8-10.8)
[2017-08-03 05:16] LABS: PTT 42 SEC (25-37)
[2017-08-03 08:00] VITALS: BP 112/66
--- NOTE | 2017-08-03 08:43 | PN- Resident CRCU ---
Yudelka PROCTOR,Chun 08/03/17 0842: Subjective HPI/CRCU Issues: Patient seen and examined. She is seen sitting upright in bed resting comfortably maintained on supplemental oxygen via nasal cannula. She appears to be in no acute distress. Her family member is at bedside. She reports feeling well and has no complaints and otherwise denies any headache, fever, chills, chest pain, palpitations, shortness of breath, nausea, vomiting, or diarrhea. Objective Vital Signs & I&O Last 8 Hrs of Vitals and I&O: VS since 0000 08/03/17 -TMAX: 99.5 -HR 68-131 -RR 16-20 -BP 102-11/64-70 -O2 96-98% on 90% FiO2 Telemetry-Period of atrial fibrillation with RVR, now NSR rate controlled Exam General Appearance: well developed/nourished, no apparent distress, alert, awake , comfortable, thin Other Physical Findings: GEN: thin elderly woman in no acute distress HEENT: NCAT, PERRL, EOMI, anicteric sclera, MMM, nasal cannula in place NECK: Supple, no JVD, trachea midline, no accessory respiratory muscle use CARD: Normal S1/S2 w/o m/g/r; RRR PULM: Scant bibasilar crackles (R>L) ABD: Soft, NT, ND, BS+ NEURO: Awake and alert, CN II-XII grossly intact EXT: normal pulses, no cyanosis or edema Current Medications: Current Medications Sig/Zeb Start time Last Medication Dose Route Stop Time Status Admin Albuterol Sulfate 3 ML BID 08/01 2199 AC 08/03 INH 0849 Aspirin 300 MG ONCE ONE 08/02 1145 DC 08/02 DC 08/02 1146 1156 Azithromycin 500 MG 07/30 AC 08/02 Dextrose/Water 250 ML IV 2220 Ceftriaxone Sodium 1,000 MG DAILY 07/30 1159 AC 08/03 IV 0928 Furosemide 20 MG ONCE ONE 08/02 2244 DC 08/02 IV 08/02 2245 224 Heparin Sodium 25,000 UNIT Q24H 08/02 1945 AC 08/02 (Porcine) IV 2224 Sodium Chloride 500 ML Magnesium Chloride 64 MG ONCE ONE 08/03 0015 DC 08/03 PO 08/03 0016 0110 Methylprednisolone 20 MG DAILY 08/02 1000 DC IV Metoprolol Tartrate 5 MG ONCE ONE 08/03 0130 DC 08/03 IV 08/03 0131 0124 Nitroglycerin 1 GM Q6 08/02 2359 AC 08/03 TOP 0614 Nitroglycerin 0.4 MG Q 5 MINUTES X 3 DO.. 08/02 0415 DC 08/02 SL 0508 Pantoprazole Sodium 40 MG DAILY 07/30 2200 AC 08/03 IV 0928 Potassium Chloride 20 MEQ BID 08/03 1102 AC PO Potassium Chloride 20 MEQ ONCE ONE 08/03 0015 DC 08/03 PO 08/03 0016 0027 Prednisone 10 MG DAILY 08/04 1000 AC PO Prednisone 10 MG ONCE ONE 08/03 1000 DC 08/03 PO 08/03 1001 0928 Sodium Chloride 2 SPRAY Q4P PRN 07/31 1715 AC 07/31 KRYSTYNA 1735 Impression/Plan Impression/Problem List Impression: 86 year old woman with multiple medical problems significant for COPD, MDS, SLE, anemia seen for evaluation of diarrhea and weakness with "flu-like" symptoms found to have respiratory failure with sepsis and pneumonia requiring ICU admission. Patient remains on high flow oxygen with SPO2 in the low 90s. She is otherwise asymptomatic and in no acute respiratory distress. She remains otherwise hemodynamically stable with improved sepsis. She is afebrile without leukocytosis on day six of ceftriaxone/azithromycin for her pneumonia. Hemoglobin remains stable. She is now back on oral prednisone. Potassium was found to be low which was repleated. Problem List -Sepsis -Acute hypoxic respiratory failure -Elevated troponin, likely demand ischemia -Myelodysplastic syndrome -Transfusion-dependent anemia -SLE, on hydroxychloroquine/prednisone -COPD -Hypertension Plan -ICU -TRC with Nebs PRN -High-flow O2, on 90% FiO2 -Type & Cross, transfuse PRBC to hgb > 8 -Ceftriaxone 1 g IV Daily, day 6 -Azithromycin 500 mg IV Daily, day 6 -Protonix 40 mg IV Daily -Heparin GGT for atrial fibrillation -Continue home meds: prednisone, NTG -Held meds: hydroxychloroquine, statin; restart as tolerated/needed -Consults with cardiology, hematology, and infectious disease -Pain control PRN -Regular diet (ground/thins) -DVT PPx -FULL CODE Problem List: 1. Sepsis Pain Ratin Tomorrow's Labs & Rationales: CBC, BMP, Mg Plan DVT/Prophylaxis: mechanical Rosalva MD,Marck 08/03/17 0927: Attending MD Review Statement Attending Sign Off Attending Cosign Statement: I have: examined this patient, reviewed aval EMR data, personally reviewd images, discussd w/resident/PA/HOEING [employer]OW BOSS, discussed mgmt plan w/monique, discussed mgmt plan w/CM, discussed mgmt plan w/pt, agreed w/resident/PA/HOEING [employer]OW [employer]OSS, amended to note. Other Findings: Impression 86 year old woman hx of MDS/Anemia acute hypoxemic respiratory failure sepsis - likely urinary vs GI source troponinemia Plan Respiratory -titrate as needed to keep spo2 >92% ID -f/u ID recs regarding abx -scan pending CVS -cardiology consulted -f/u recommendations -no evicence of PE -fount in a.fib, elevated troponins, on heparin gtt Heme -f/u hematology recs Metabolic -electrolyte improved -taper steroids Alimentary -diet ordered, aspiration precautions Neuro -alert Full Code TTS 35 min keep in ICU given o2 requirements
--- NOTE | 2017-08-03 13:01 | PN- Infect Dx ---
Subjective Subjective: Dry cough; denies any headache, fever, chills, chest pain, palpitations, shortness of breath, nausea, vomiting, or diarrhea. Review of Systems Comments: 12 points reviewed as noted, otherwise negative. Objective Last 24 Hrs of Vital Signs/I&O Vital Signs Date Time Temp Pulse Resp B/P B/P Pulse O2 O2 Flow FiO2 Mean Ox Delivery Rate 08/03 0852 97 Nasal 90% Cannula 08/03 08 98.5 68 20 112/66 96 Nasal 95% Cannula 08/03 0800 96 Nasal 95% Cannula 08/03 0400 96 Nasal 95% Cannula 08/03 0124 131 16 102/70 08/03 0104 96 Nasal 95% Cannula 08/03 0000 98 Nasal 95% Cannula 08/03 0000 99.5 75 16 112/64 98 Nasal 95% Cannula 08/02 2050 94 Nasal 7.0L Cannula 08/02 2000 91 Nasal 7.0L Cannula 08/02 1640 Nasal 8L Cannula 08/02 1600 97 Nasal 6.0L Cannula 08/02 1600 99.0 60 12 138/62 99 Ventilator 25% Intake & Output 08/03 1600 08/03 0800 08/03 0000 Intake Total 250 1330 Output Total 250 250 Balance 0 1080 Intake, IV 70 250 Intake, Oral 180 1080 Number 0 0 Bowel Movements Output, Urine 250 250 Physical Exam Other Physical Findings: GEN: thin elderly woman in no acute distress HEENT: NCAT, PERRL, EOMI, anicteric sclera, MMM, nasal cannula in place NECK: Supple, no JVD, trachea midline, no accessory respiratory muscle use CARD: Normal S1/S2 w/o m/g/r; RRR PULM: Scant bibasilar crackles (R>L) ABD: Soft, NT, ND, BS+ NEURO: Awake and alert, CN II-XII grossly intact EXT: normal pulses, no cyanosis or edema Results Last 24 Hours of Lab Results: Laboratory Tests 08/03 08/03 08/03 1245 0436 0034 Chemistry Sodium (137 - 145 mmol/L) 136 L Potassium (3.5 - 5.1 mmol/L) 3.4 L Chloride (98 - 107 mmol/L) 90 L Carbon Dioxide (22 - 30 mmol/L) 37 H Anion Gap (5 - 16) 9 BUN (7 - 17 mg/dL) 30 H Creatinine (0.5 - 1.0 mg/dL) 0.9 Estimated GFR (>60 ml/min) 59 L Glucose (65 - 99 mg/dL) 109 H Calcium (8.4 - 10.2 mg/dL) 8.0 L Phosphorus (2.5 - 4.5 mg/dL) 3.4 Magnesium (1.6 - 2.3 mg/dL) 1.6 Total Bilirubin (0.2 - 1.3 mg/dL) 0.3 AST (14 - 36 U/L) 56 H ALT (9 - 52 U/L) 50 Troponin I (< 0.11 ng/ml) 0.46 *H Albumin (3.5 - 5.0 g/dL) 2.9 L Coagulation APTT (25 - 37 SEC) Pending 42 H D-Dimer High Sensitivty Pending Hematology CBC w Diff MAN DIFF ORDERED WBC (4.8 - 10.8 /CUMM) 2.1 L RBC (4.20 - 5.40 /CUMM) 4.22 Hgb (12.0 - 16.0 G/DL) 12.5 Hct (37 - 47 %) 39.2 MCV (81.0 - 99.0 FL) 93.0 MCH (27.0 - 31.0 PG) 29.6 MCHC (33.0 - 37.0 G/DL) 31.9 L RDW (11.5 - 14.5 %) 22.2 H Plt Count (130 - 400 /CUMM) 76 L MPV (7.4 - 10.4 FL) 9.7 Gran % (42.2 - 75.2 %) 14.5 L Lymphocytes % (20.5 - 51.1 %) 74.3 H Monocytes % (1.7 - 9.3 %) 11.2 H Eosinophils % (0 - 5 %) 0 Basophils % (0.0 - 2.0 %) 0 Absolute Granulocytes (1.4 - 6.5 /CUMM) 0.3 L Segmented Neutrophils (42.2 - 75.2 %) 42 L Absolute Lymphocytes (1.2 - 3.4 /CUMM) 1.5 Lymphocytes (20.5 - 51.1 %) 51 Monocytes (1.7 - 9.3 %) 7 Absolute Monocytes (0.10 - 0.60 /CUMM) 0.2 Absolute Eosinophils (0.0 - 0.7 /CUMM) 0 Absolute Basophils (0.0 - 0.2 /CUMM) 0 Platelet Estimate (ADEQUATE) DECREASED Poikilocytosis 1+ Macrocytic Cells 1+ 08/02 08/02 1743 1425 Chemistry Potassium (3.5 - 5.1 mmol/L) 3.4 L Magnesium (1.6 - 2.3 mg/dL) 1.8 Troponin I (< 0.11 ng/ml) 0.52 *H 0.48 *H Hematology CBC w Diff NO MAN DIFF REQ WBC (4.8 - 10.8 /CUMM) 2.3 L RBC (4.20 - 5.40 /CUMM) 4.27 Hgb (12.0 - 16.0 G/DL) 12.7 Hct (37 - 47 %) 39.5 MCV (81.0 - 99.0 FL) 92.5 MCH (27.0 - 31.0 PG) 29.7 MCHC (33.0 - 37.0 G/DL) 32.1 L RDW (11.5 - 14.5 %) 22.5 H Plt Count (130 - 400 /CUMM) 81 L MPV (7.4 - 10.4 FL) 9.0 Gran % (42.2 - 75.2 %) 21.9 L Lymphocytes % (20.5 - 51.1 %) 64.8 H Monocytes % (1.7 - 9.3 %) 13.3 H Eosinophils % (0 - 5 %) 0 Basophils % (0.0 - 2.0 %) 0 Absolute Granulocytes (1.4 - 6.5 /CUMM) 0.5 L Absolute Lymphocytes (1.2 - 3.4 /CUMM) 1.5 Absolute Monocytes (0.10 - 0.60 /CUMM) 0.3 Absolute Eosinophils (0.0 - 0.7 /CUMM) 0 Absolute Basophils (0.0 - 0.2 /CUMM) 0 Last 24 Hours of Red Results: Procedure Result > URINE CULTURE Final 07/31/17-1007 Greater than 100,000 colonies per ml of: ESCHERICHIA COLI 1. ESCHERICHIA COLI RX AB ------ -- AMPICILLIN S CEFAZOLIN S AMOXICILLIN/CLAVULINIC ACID S AMPICILLIN/SULBACTAM S CIPROFLOXACIN S GENTAMICIN S NITROFURANTOIN S TRIMETHOPRIM/SULFAMETHOXAZOLE S Note: Infectious Diseases Society of [place] Guidelines state that asymptomatic bacteriuria is not associated with any increase in morbidity or mortality in most patients and therefore treatment is usually not indicated unless patients are less than five years old, or about to undergo urological procedures. BC 07/29 NGTSD x2 Recent Imaging Studies: SERVICE DATE: 08/02/17 EXAM TYPE: RAD - XRY-PORTABLE CHEST XRAY EXAMINATION: XR PORTABLE CHEST CLINICAL INFORMATION: Hypoxia. Concern for aspiration or pulmonary edema. COMPARISON: Chest x-ray 07/31/2017 , 07/30/2017. CT chest 07/31/2017. Chest x-ray 07/02/2017 TECHNIQUE: Portable frontal view of the chest was obtained. 10:07 PM FINDINGS: There is persistent mild central pulmonary vascular congestion. This is similar to chest x-ray 07/31/2017. There is no overt edema however. There are bilateral pleural effusions blunting the costophrenic angle which are moderate in volume. Linear density above both diaphragms of subsegmental atelectasis. No dense consolidation. IMPRESSION: 1. Persistent mild pulmonary vascular congestion. There are bilateral pleural effusions now present. 2. No dense consolidation. Linear atelectasis at lung bases. DICTATED BY: Elieser Butler MD DATE/TIME DICTATED:08/02/172236 BAD WORK GATHERER:CHUY DATE/TIME TRANSCRIBED:08/02/172236 CTA IMPRESSION: 1. No evidence of pulmonary embolism. 2. Bibasilar infiltrates with small bilateral pleural effusions. 3. Marked emphysematous changes of lung. VTE: negative Assessment/Plan ID Impression: 86-year-old woman with a history of lupus, maintained on 10 mg of prednisone daily, COPD, hypertension and myelodysplastic syndrome, maintained on Erythropoietin and periodic red blood cell transfusions, hospitalized 4 weeks prior to admission with anemia and melanotic stools, found on upper endoscopy to have candidal esophagitis, treated with blood transfusions and discharged on Fluconazole to complete a two-week course of treatment, seen in the emergency room 2 weeks prior to admission for anemia, requiring 2 units of blood, admitted 07/29 with sepsis. Continues to improve, with temperatures remaining normal (on steroids), while on Ceftriaxone and Azithromycin Day 5 of treatment for sepsis, most likely secondary to pneumonia, with further improvement in her respiratory status. Her mild leukopenia and thrombocytopenia may be secondary to sepsis versus her underlying myelodysplastic syndrome. Suggestion: 1. Remove Muir catheter 2. Continue Ceftriaxone and Azithromycin Suggestion: 1. F/U hem recommendations; continue to trend CBC; please call if fever. 2. Continue Ceftriaxone and Azithromycin D #5/.
[2017-08-03 14:15] LABS: PTT 68 SEC (25-37)
[2017-08-03 16:00] VITALS: BP 112/60
--- NOTE | 2017-08-03 18:51 | PN- Cardiology ---
Subjective Subjective: Reasonably stable ; sitting in bedside chair; no specific complaints. Objective Vital Signs and I&Os Vital Signs Date Time Temp Pulse Resp B/P B/P Pulse O2 O2 Flow FiO2 Mean Ox Delivery Rate 08/03 1600 98.3 67 20 112/60 96 Nasal 8L Cannula 08/03 1600 96 Nasal 7.0L Cannula 08/03 1200 95 Nasal 8L Cannula 08/03 0852 97 Nasal 90% Cannula 08/03 0800 98.5 68 20 112/66 96 Nasal 95% Cannula 08/03 0800 96 Nasal 95% Cannula 08/03 0400 96 Nasal 95% Cannula 08/03 0124 131 16 102/70 08/03 0104 96 Nasal 95% Cannula 08/03 0000 98 Nasal 95% Cannula 08/03 0000 99.5 75 16 112/64 98 Nasal 95% Cannula 08/02 2050 94 Nasal 7.0L Cannula 08/02 1999 91 Nasal 7.0L Cannula Intake & Output 08/03 1600 08/03 0800 08/03 0000 08/02 1600 08/02 0800 08/02 0000 Intake Total 560 281 5288 180 675 396 Output Total 250 250 250 850 570 Balance 580 0 1080 -70 -175 -174 Intake, IV 100 70 250 180 675 396 Intake, Oral 530 113 1863 0 Number 1 0 0 0 0 0 Bowel Movements Output, Urine 250 250 250 850 570 Physical Exam: GENERAL: thin elderly woman in no acute distress HEENT: NCAT, PERRL, EOMI, anicteric sclera, MMM, nasal cannula in place NECK: Supple, no JVD, carotid normal bilaterally HEART: Normal S1/S2 ; 1/6 systolic murmur PULM: Bilateral rhonchi ABD: Soft, NT, ND, BS+ NEURO: Nonfocal EXT: normal pulses, no cyanosis or edema Assessment/Plan Assessment/Plan Assessment: 1. Elevated troponin consistent with Type II [place] 2. Sepsis 3. Acute hypoxic respiratory failure 4. COPD 5. MDS 6. SLE 7. Anemia Recommendations: - COntinue current management as outlined by the ICU team - Continue IV heparin another 24 hours if stable - Continue current cardiac medications. - Reassess status in AM Continue telemetry? Yes
[2017-08-04] VITALS: BP 102/60
[2017-08-04 00:42] LABS: PTT 62 SEC (25-37)
[2017-08-04 06:02] LABS: ABSOLUTE BASOPHIL COUNT 0 /CUMM (0.0-0.2); ABSOLUTE EOSINOPHIL COUNT 0 /CUMM (0.0-0.7); ABSOLUTE GRANULOCYTE CT 0.6 /CUMM (1.4-6.5); ABSOLUTE LYMPH COUNT 2.7 /CUMM (1.2-3.4); ABSOLUTE MONOCYTE COUNT 0.2 /CUMM (0.10-0.60); BASOPHIL % 0.2 % (0.0-2.0); EOSINOPHIL % 0 % (0-5); GRANULOCYTE % 17.8 % (42.2-75.2); HEMATOCRIT 38.2 % (37-47); MEAN CORPUSCULAR HGB 29.6 PG (27.0-31.0); MEAN CORPUSCULAR HGB CONC 31.7 G/DL (33.0-37.0); MEAN CORPUSCULAR VOLUME 93.4 FL (81.0-99.0); MEAN PLATELET VOLUME 9.5 FL (7.4-10.4); PLATELET COUNT 60 /CUMM (130-400); RBC DISTRIBUTION WIDTH 21.4 % (11.5-14.5); RED BLOOD CELL CT 4.09 /CUMM (4.20-5.40)
[2017-08-04 06:28] LABS: WHITE BLOOD CELL COUNT 3.5 /CUMM (4.8-10.8)
[2017-08-04 08:00] VITALS: BP 110/58
--- NOTE | 2017-08-04 08:31 | RADIOLOGY REPORT ---
EXAMINATION: XR PORTABLE CHEST CLINICAL INFORMATION: SOB with decreased saturation. COMPARISON: Chest 08/02/2017 TECHNIQUE: Portable frontal view of the chest was obtained. FINDINGS: There is a new patchy airspace opacity in the right lung base and likely consolidation left lung base retrocardiac area. Similarly patchy airspace opacities seen in the right upper lobe paramediastinal. Heart size is normal. Pulmonary vascularity is slightly prominent, less likely congestion. No gross bony abnormality. IMPRESSION: New airspace opacity right lower lobe, left lower lobe and right upper lobe suggestive of infiltrates, likely aspiration related. There is no suggestion for congestion on this exam. Previously seen pleural effusions are not well visualized on this exam but cannot be excluded.
--- NOTE | 2017-08-04 09:20 | PN- Resident CRCU ---
Umair Hall 08/04/17 0920: Subjective HPI/CRCU Issues: The patient was seen and examined this morning. Early in the morning, she desaturated. Chest x-ray was ordered which was suspicious for aspiration. She was made nothing by mouth. She has remained afebrile. Patient first having shortness of breath improved while on oxygen, denies any neck, dizziness, lightheadedness, nausea, vomiting, chest pain, abdominal pain, urinary symptoms. Objective Vital Signs & I&O Last 8 Hrs of Vitals and I&O: Vital Signs Date Time Temp Pulse Resp B/P B/P Pulse O2 O2 Flow FiO2 Mean Ox Delivery Rate 08/04 1157 93 Aerosol 100% Mask 08/04 08 92 Aerosol 100% Mask 08/04 0808 86 Nasal 90% Cannula 08/04 08 97.6 74 16 110/58 88 Nasal 9L Cannula 08/04 0400 91 Nasal 9L Cannula 08/04 0000 94 Nasal 9L Cannula 08/04 0000 97.2 76 11 102/60 94 Nasal 9L Cannula 08/03 2054 94 Nasal 8L Cannula 08/03 2000 94 Nasal 8L Cannula 08/03 1600 98.3 67 20 112/60 96 Nasal 8L Cannula 08/03 1600 96 Nasal 7.0L Cannula Intake & Output 08/04 1600 08/04 0800 08/04 0000 Intake Total 100 711 Output Total Balance 100 711 Intake, IV 100 351 Intake, Oral 360 Number 0 1 Bowel Movements Exam General Appearance: no apparent distress, alert, awake Head: atraumatic, normal appearance Ears, Nose, Throat: normal ENT inspection Neck: normal inspection, supple Respiratory: diminished breath sounds bilaterally, mild bibasilar crackles Cardiovascular: regular rate/rhythm Gastrointestinal: normal bowel sounds, soft, non-tender Extremities: no edema Cranial Nerves: normal hearing, PERRL Skin: intact Current Medications: Current Medications Sig/Zeb Start time Last Medication Dose Route Stop Time Status Admin Albuterol Sulfate 3 ML BID 08/01 2199 AC 08/04 INH 0746 Azithromycin 500 MG 07/30 DC 08/03 Dextrose/Water 250 ML IV 2217 Ceftriaxone Sodium 1,000 MG DAILY 07/30 1159 DC 08/04 IV 1127 Furosemide 40 MG ONCE ONE 08/04 1015 DC 08/04 IV 08/04 1016 1128 Furosemide 20 MG ONCE ONE 08/03 1615 DC 08/03 IV 08/03 1616 1638 Heparin Sodium 25,000 UNIT Q24H 08/02 1945 AC 08/02 (Porcine) IV 08/05 1800 2224 Sodium Chloride 500 ML Hydrocortisone 40 MG DAILY 08/04 1000 AC 08/04 Sodium Succinate IV 1128 Lidocaine 1 PAT ONCE ONE 08/04 1130 DC EXT 08/04 1131 Magnesium Oxide 400 MG ONE ONE 08/04 0630 CAN PO 08/04 0631 Magnesium Sulfate 1 GM ONCE ONE 08/04 0945 DC 08/04 Dextrose/Water 100 ML IV 08/04 1344 1124 Nitroglycerin 1 GM Q6 08/02 2359 AC 08/04 TOP 0619 Non-Formulary 0 SEE ADMIN CRITERIA 08/04 1345 CAN Medication ANY Pantoprazole Sodium 40 MG DAILY 07/30 2200 AC 08/04 IV 1127 Potassium Chloride 10 MEQ ONCE ONE 08/04 0945 DC 08/04 IV 08/04 0946 1124 Potassium Chloride 40 MEQ ONCE ONE 08/04 0630 CAN PO 08/04 0631 Potassium Chloride 20 MEQ BID 08/03 1102 DC 08/03 PO 2215 Prednisone 10 MG DAILY 08/04 1000 CAN PO Sodium Chloride 2 SPRAY Q4P PRN 07/31 1715 AC 07/31 KRYSTYNA 1735 Vancomycin HCl 750 MG Q24 08/04 1400 DC Dextrose/Water 250 ML IV Vancomycin HCl 750 MG Q24H 08/04 1400 AC Dextrose/Water 250 ML IV Vancomycin HCl 500 MG Q12 08/04 1333 DC Dextrose/Water 250 ML IV Impression/Plan Impression/Problem List Impression: This is a 86 year old lady with past medical history significant for COPD, MDS, SLE, anemia seen for evaluation of diarrhea and weakness with "flu-like" symptoms found to have respiratory failure with sepsis and pneumonia requiring ICU admission. Assessment/plan: #Acute hypoxemic respiratory failure: * Had another episode of desaturation, chest x-ray suspicious for aspiration * The patient was made nothing by mouth, will change medications to IV * On prednisone 10 mg daily, will change to equivalent of IV Solu-Cortef 40 mg daily, checked with pharmacy * IV diuretics on a when necessary basis * Repeat swallow evaluation done today, they agreed with keeping the patient nothing by mouth this point #History of COPD: * TRC/nebs as needed * IV steroids as above #Sepsis: * Most likely respiratory source * Possible consolidation in the chest, likely pneumonia, suspect aspiration pneumonia * Sputum cultures were sent * Talked with infectious disease, fairly was suggested to change antibiotics to vancomycin and Zosyn, checked dosing with pharmacy #Elevated troponins * Troponin peaked, initially attributes it to demand ischemia given her comorbidities, she was started on IV heparin. * Discussed with cardiology on-call, Dr. Maya who suggests continuing IV heparin until tomorrow morning * Follow cardiology recommendations #History of MDS/anemia * Initially DIC panel positive for very low Fibrinogen; repeat shows elevated fibrinogen. * Appreciate Heme/Onc recs * Will give FFP if active bleeding * Monitor DIC panel #History of Lupus: * On hydroxychloroquine and prednisone 10 mg daily at home. * Hydroxychloroquine is associated with leukopenia, thrombocytopenia and aplastic anemia along with hemolysis. Note that after discontinuing medication her counts seem to have significantly improved. * Continue to hold hydroxychloroquine * Continue steroids #Electrolytes abnormalities * Monitor electrolytes and replete accordingly #Transaminitis: * Unsure of etiology. Transamanitis in 100s since admission. Unsure if her coagulopathy is secondary to liver/DIC. ??fx of hydroxychloroquine. #DVT PPX: * Being addressed by IV heparin #Code status: * Full code Problem List: 1. Elevated troponin 2. Sepsis 3. MDS (myelodysplastic syndrome) Pain Ratin Tomorrow's Labs & Rationales: CBC to monitor H&H ICU bundle to monitor electrolytes Plan DVT/Prophylaxis: mechanical Rosalva PROCTOR,Marck 08/04/17 0943: Attending MD Review Statement Attending Sign Off Attending Cosign Statement: I have: examined this patient, reviewed [facility] EMR data, personally reviewd images, discussd w/resident/PA/[employer], discussed mgmt plan w/monique, discussed mgmt plan w/CM, discussed mgmt plan w/pt, agreed w/resident/PA/[employer], amended to note. Other Findings: Impression 86 year old woman hx of MDS/Anemia acute hypoxemic respiratory failure sepsis - likely urinary vs GI source troponinemia Plan Respiratory -titrate as needed to keep spo2 >92% ID -f/u ID recs regarding abx -scan pending CVS -cardiology consulted -f/u recommendations -no evicence of PE -fount in a.fib, elevated troponins, on heparin gtt Heme -f/u hematology recs Metabolic -electrolyte improved -taper steroids Alimentary -diet ordered, aspiration precautions Neuro -alert Full Code TTS 35 min
--- NOTE | 2017-08-04 12:28 | PN- Infect Dx ---
Subjective Subjective: Fatigued. Increased cough. Increased O2 requirements. Chills. Review of Systems Comments: 12 points reviewed as noted, otherwise negative. Objective Last 24 Hrs of Vital Signs/I&O Vital Signs Date Time Temp Pulse Resp B/P B/P Pulse O2 O2 Flow FiO2 Mean Ox Delivery Rate 08/04 1157 93 Aerosol 100% Mask 08/04 0820 92 Aerosol 100% Mask 08/04 0808 86 Nasal 90% Cannula 08/04 0400 91 Nasal 9L Cannula 08/04 0000 94 Nasal 9L Cannula 08/04 0000 97.2 76 11 102/60 94 Nasal 9L Cannula 08/03 2054 94 Nasal 8L Cannula 08/03 1999 94 Nasal 8L Cannula 08/03 1600 98.3 67 20 112/60 96 Nasal 8L Cannula 08/03 1600 96 Nasal 7.0L Cannula Intake & Output 08/04 1600 08/04 0800 08/04 0000 Intake Total 100 711 Output Total Balance 100 711 Intake, IV 100 351 Intake, Oral 360 Number 0 1 Bowel Movements Physical Exam Other Physical Findings: GEN: thin elderly thin and frail, chronically ill HEENT: NCAT, PERRL, EOMI, anicteric sclera NECK: Supple, no JVD, trachea midline CARD: S1, S2 present, no m/g/r PULM: BS present ABD: Soft, NT NEURO: Awake and alert, CN II-XII grossly intact EXT: normal pulses, no cyanosis or edema Results Last 24 Hours of Lab Results: Laboratory Tests 08/04 08/04 08/03 0458 0000 1245 Chemistry Sodium (137 - 145 mmol/L) 137 Potassium (3.5 - 5.1 mmol/L) 3.7 Chloride (98 - 107 mmol/L) 88 L Carbon Dioxide (22 - 30 mmol/L) 39 H Anion Gap (5 - 16) 10 BUN (7 - 17 mg/dL) 32 H Creatinine (0.5 - 1.0 mg/dL) 0.9 Estimated GFR (>60 ml/min) 59 L BUN/Creatinine Ratio (7 - 25 %) 35.6 H Magnesium (1.6 - 2.3 mg/dL) 1.6 Coagulation APTT (25 - 37 SEC) 62 H 68 H D-Dimer High Sensitivty (0 - 243 ng/ml) 937 H Hematology CBC w Diff NO MAN DIFF REQ WBC (4.8 - 10.8 /CUMM) 3.5 L RBC (4.20 - 5.40 /CUMM) 4.09 L Hgb (12.0 - 16.0 G/DL) 12.1 Hct (37 - 47 %) 38.2 MCV (81.0 - 99.0 FL) 93.4 MCH (27.0 - 31.0 PG) 29.6 MCHC (33.0 - 37.0 G/DL) 31.7 L RDW (11.5 - 14.5 %) 21.4 H Plt Count (130 - 400 /CUMM) 60 L MPV (7.4 - 10.4 FL) 9.5 Gran % (42.2 - 75.2 %) 17.8 L Lymphocytes % (20.5 - 51.1 %) 76.1 H Monocytes % (1.7 - 9.3 %) 5.9 Eosinophils % (0 - 5 %) 0 Basophils % (0.0 - 2.0 %) 0.2 Absolute Granulocytes (1.4 - 6.5 /CUMM) 0.6 L Absolute Lymphocytes (1.2 - 3.4 /CUMM) 2.7 Absolute Monocytes (0.10 - 0.60 /CUMM) 0.2 Absolute Eosinophils (0.0 - 0.7 /CUMM) 0 Absolute Basophils (0.0 - 0.2 /CUMM) 0 Last 24 Hours of Red Results: SPEC #: [id number] BRANDEN: 08/04/17 STATUS: RES RECD: 08/04/[address]: Isabel PROCTOR, Randy SOURCE: LOWER RESP ENTR: 08/04/17 [facility] DR: Lauryn PROCTOR,Rio Bain SPDESC: SPUTUM Rosalva PROCTOR,Marck ORDERED: LOWER RESPIRATO Procedure Result > GRAM STAIN Final 08/04/17 WHITE BLOOD CELLS FEW SQUAMOUS CELLS FEW GRAM POSITIVE COCCI FEW GRAM NEGATIVE RODS RARE GRAM POSITIVE RODS RARE LOWER RESPIRATORY CULTURE - PENDING Recent Imaging Studies: CXR 08/04 FINDINGS: There is a new patchy airspace opacity in the right lung base and likely consolidation left lung base retrocardiac area. Similarly patchy airspace opacities seen in the right upper lobe paramediastinal. Heart size is normal. Pulmonary vascularity is slightly prominent, less likely congestion. No gross bony abnormality. IMPRESSION: New airspace opacity right lower lobe, left lower lobe and right upper lobe suggestive of infiltrates, likely aspiration related. There is no suggestion for congestion on this exam. Previously seen pleural effusions are not well visualized on this exam but cannot be excluded. DICTATED BY: Hussain Noble MD DATE/TIME DICTATED:08/04/17823 [employer]GER:CHUY DATE/TIME TRANSCRIBED:08/04/17823 Assessment/Plan ID Impression: 86-year-old woman with a history of lupus (maintained on prednisone 10 mg daily) , COPD, hypertension and myelodysplastic syndrome, and bri esophagitis was admitted 07/29 with sepsis. Temperatures remaining normal (on steroids), while on Ceftriaxone and Azithromycin Day 6 of treatment for sepsis, most likely secondary to pneumonia. Persistent cough; CXR 08/04 revealing new airspace opacity right lower lobe, left lower lobe and right upper lobe suggestive of infiltrates, likely aspiration related. Of note MBS on 08/02 was negative for aspiration. While leukopenia improving; noted worsening thrombocytopenia. Suggestion: 1. F/U sputum cx results; aspiration precautions. 2. Trend CBC/BMP; please call if fever. 3. Treated w/ Ceftriaxone and Azithromycin D #6; taking in account worsening aspiration pneumonia consider empiric Zosyn 3.375 gm q 8 h and one dose iv vancomycin 1 gm x 1 pending sputum cx results.
[2017-08-04 13:09] LABS: PTT 58 SEC (25-37)
[2017-08-04 16:00] VITALS: BP 102/56
--- NOTE | 2017-08-04 17:47 | PN- Cardiology ---
Subjective Subjective: Clinically unchanged. NO new CV symptoms. Transient atrial fibrillatiion now reverted to NSR. Objective Vital Signs and I&Os Vital Signs Date Time Temp Pulse Resp B/P B/P Pulse O2 O2 Flow FiO2 Mean Ox Delivery Rate 08/04 1600 93 Aerosol 95% Mask 08/04 1600 98.0 83 17 102/56 93 Aerosol 95% Mask 08/04 1200 94 Venti Mask 100% 08/04 1157 93 Aerosol 100% Mask 08/04 0820 92 Aerosol 100% Mask 08/04 0808 86 Nasal 90% Cannula 08/04 0800 88 Nasal 9L Cannula 08/04 0800 97.6 74 16 110/58 88 Nasal 9L Cannula 08/04 0400 91 Nasal 9L Cannula 08/04 0000 94 Nasal 9L Cannula 08/04 0000 97.2 76 11 102/60 94 Nasal 9L Cannula 08/03 2054 94 Nasal 8L Cannula 08/03 2000 94 Nasal 8L Cannula Intake & Output 08/04 1600 08/04 0800 08/04 0000 08/03 1600 08/03 0800 08/03 0000 Intake Total 225 100 711 066 534 4172 Output Total 600 250 250 Balance -375 100 711 580 0 1080 Intake, IV 225 100 351 100 70 250 Intake, Oral 360 997 737 9280 Number 0 1 1 0 0 Bowel Movements Output, Urine 600 250 250 Physical Exam: GENERAL: thin elderly woman in no acute distress HEENT: NCAT, PERRL, EOMI, anicteric sclera, MMM, nasal cannula in place NECK: Supple, no JVD, carotid normal bilaterally HEART: Normal S1/S2 ; 1/6 systolic murmur PULM: Bilateral rhonchi ABD: Soft, NT, ND, BS+ NEURO: Nonfocal EXT: normal pulses, no cyanosis or edema Current Medications: Current Medications Sig/Zeb Start time Last Medication Dose Route Stop Time Status Admin Albuterol Sulfate 3 ML BID 08/01 2199 AC 08/04 INH 0746 Azithromycin 500 MG 07/30 DC 08/03 Dextrose/Water 250 ML IV 2217 Ceftriaxone Sodium 1,000 MG DAILY 07/30 1159 DC 08/04 IV 1127 Furosemide 40 MG ONCE ONE 08/04 1015 DC 08/04 IV 08/04 1016 1128 Heparin Sodium 25,000 UNIT Q24H 08/02 1945 AC 08/02 (Porcine) IV 08/05 1800 2224 Sodium Chloride 500 ML Hydrocortisone 40 MG DAILY 08/04 1000 AC 08/04 Sodium Succinate IV 1128 Lidocaine 1 PAT ONCE ONE 08/04 1130 DC EXT 08/04 1131 Magnesium Oxide 400 MG ONE ONE 08/04 0630 CAN PO 08/04 0631 Magnesium Sulfate 1 GM ONCE ONE 08/04 0945 DC 08/04 Dextrose/Water 100 ML IV 08/04 1344 1124 Nitroglycerin 1 GM Q6 08/02 2359 AC 08/04 TOP 0619 Non-Formulary 0 SEE ADMIN CRITERIA 08/04 1345 CAN Medication ANY Pantoprazole Sodium 40 MG DAILY 07/30 2200 AC 08/04 IV 1127 Potassium Chloride 10 MEQ ONCE ONE 08/04 0945 DC 08/04 IV 08/04 0946 1124 Potassium Chloride 40 MEQ ONCE ONE 08/04 0630 CAN PO 08/04 0631 Potassium Chloride 20 MEQ BID 08/03 1102 DC 08/03 PO 2215 Prednisone 10 MG DAILY 08/04 1000 CAN PO Sodium Chloride 2 SPRAY Q4P PRN 07/31 1715 AC 07/31 KRYSTYNA 1735 Vancomycin HCl 750 MG Q24 08/04 1400 DC Dextrose/Water 250 ML IV Vancomycin HCl 750 MG Q24H 08/04 1400 AC 08/04 Dextrose/Water 250 ML IV 1600 Vancomycin HCl 500 MG Q12 08/04 1333 DC Dextrose/Water 250 ML IV Results Last 48 Hrs of Labs/Mics: Laboratory Tests 08/04/17 1225: APTT 58 H 08/04/17 0458: Anion Gap 10, Estimated GFR 59 L, BUN/Creatinine Ratio 35.6 H, Magnesium 1.6, CBC w Diff NO MAN DIFF REQ, RBC 4.09 L, MCV 93.4, MCH 29.6, MCHC 31.7 L, RDW 21.4 H, MPV 9.5, Gran % 17.8 L, Lymphocytes % 76.1 H, Monocytes % 5.9, Eosinophils % 0, Basophils % 0.2, Absolute Granulocytes 0.6 L, Absolute Lymphocytes 2.7, Absolute Monocytes 0.2, Absolute Eosinophils 0, Absolute Basophils 0 08/04/17 0000: APTT 62 H 08/03/17 1245: APTT 68 H, D-Dimer High Sensitivty 937 H 08/03/17 0436: Anion Gap 9, Estimated GFR 59 L, Glucose 109 H, Calcium 8.0 L, Phosphorus 3.4 , Magnesium 1.6, Total Bilirubin 0.3, AST 56 H, ALT 50, Albumin 2.9 L, APTT 42 H, CBC w Diff MAN DIFF ORDERED, RBC 4.22, MCV 93.0, MCH 29.6, MCHC 31.9 L, RDW 22.2 H, MPV 9.7, Gran % 14.5 L, Lymphocytes % 74.3 H, Monocytes % 11.2 H, Eosinophils % 0, Basophils % 0, Absolute Granulocytes 0.3 L, Segmented Neutrophils 42 L, Absolute Lymphocytes 1.5, Lymphocytes 51, Monocytes 7, Absolute Monocytes 0.2, Absolute Eosinophils 0, Absolute Basophils 0, Platelet Estimate DECREASED, Poikilocytosis 1+, Macrocytic Cells 1+ 08/03/17 0034: Troponin I 0.46 *H Assessment/Plan Assessment/Plan Assessment: 1. Elevated troponin consistent with Type II IL 2. Sepsis 3. Acute hypoxic respiratory failure 4. COPD 5. MDS 6. SLE 7. Anemia 8. Paroxysmal atrial fibrillation - reverted to sinus rhythm Recommendations: - COntinue current management as outlined by the ICU team - Continue IV heparin another 24 hours if stable - Continue current cardiac medications. - Reassess status in AM - Considder addition of low dose metoprolol at that time if tolerated by BP. Continue telemetry? Yes
[2017-08-04 21:11] LABS: PTT 71 SEC (25-37)
[2017-08-05] VITALS: BP 136/80
[2017-08-05 05:43] LABS: ABSOLUTE BASOPHIL COUNT 0 /CUMM (0.0-0.2); ABSOLUTE EOSINOPHIL COUNT 0 /CUMM (0.0-0.7); ABSOLUTE LYMPH COUNT 2.9 /CUMM (1.2-3.4); ABSOLUTE MONOCYTE COUNT 0.1 /CUMM (0.10-0.60); BASOPHIL % 0.1 % (0.0-2.0); EOSINOPHIL % 0 % (0-5); GRANULOCYTE % 25.6 % (42.2-75.2); MEAN CORPUSCULAR HGB 29.3 PG (27.0-31.0); MEAN CORPUSCULAR HGB CONC 31.6 G/DL (33.0-37.0); MEAN CORPUSCULAR VOLUME 92.7 FL (81.0-99.0); MEAN PLATELET VOLUME 9.4 FL (7.4-10.4); PLATELET COUNT 48 /CUMM (130-400); RBC DISTRIBUTION WIDTH 21.4 % (11.5-14.5); RED BLOOD CELL CT 3.47 /CUMM (4.20-5.40); WHITE BLOOD CELL COUNT 4.1 /CUMM (4.8-10.8)
[2017-08-05 05:52] LABS: HEMATOCRIT 32.1 % (37-47)
--- NOTE | 2017-08-05 07:23 | PN- Hematology ---
Subjective Subjective: She denies any new pain. She has no fever or chills. She did have some nose bleeding overnight. She is on a facemask now. Review of Systems Constitutional: Denies: chills, fever. EENTM: Reports: epistaxis. Cardiovascular: Denies: chest pain. Respiratory: Reports: short of breath. Denies: hemoptysis. Gastrointestinal: Denies: abdominal pain. Musculoskeletal: Denies: back pain. Hematologic/Endocrine: Reports: bruising, bleeding. All Other Systems: Reviewed and Negative Objective Vital Signs and I&Os Vital Signs Date Time Temp Pulse Resp B/P B/P Pulse O2 O2 Flow FiO2 Mean Ox Delivery Rate 08/05 0400 91 Aerosol 80% Mask 08/05 0000 92 Aerosol 80% Mask 08/05 0000 97.6 76 18 136/80 92 Aerosol 80% Mask 08/04 2115 93 Aerosol 80% Mask 08/04 2000 93 Aerosol 80% Mask 08/04 1600 93 Aerosol 95% Mask 08/04 1600 98.0 83 17 102/56 93 Aerosol 95% Mask 08/04 1200 94 Venti Mask 100% 08/04 1157 93 Aerosol 100% Mask 08/04 0820 92 Aerosol 100% Mask 08/04 0808 86 Nasal 90% Cannula 08/04 0800 88 Nasal 9L Cannula 08/04 0800 97.6 74 16 110/58 88 Nasal 9L Cannula Intake & Output 08/05 0800 08/05 0000 08/04 1600 08/04 0800 08/04 0000 08/03 1600 Intake Total 254 686 225 100 711 580 Output Total 235 440 600 Balance 19 246 -375 100 711 580 Intake, IV 104 566 225 100 351 100 Intake, Oral 150 120 360 480 Number 0 1 1 Bowel Movements Output, Urine 235 440 600 Physical Exam: General Appearance: no apparent distress, alert, awake, comfortable Head: atraumatic, normal appearance Ears, Nose, Throat: dry blood in nares and lips Respiratory: chest non-tender, no respiratory distress, quiet respiration, on facemask Cardiovascular: regular rate/rhythm Abdomen: normal bowel sounds, soft, non-tender Extremities: no edema Neurologic/Psychiatric: awake, alert, oriented x 3 Skin: diffuse ecchymoses and hyperpigmentation in the extremities Current Medications: Current Medications Sig/Zeb Start time Last Medication Dose Route Stop Time Status Admin Acetaminophen 1,000 MG .STK-MED ONE 08/04 1118 DC IV 08/04 1119 Albuterol Sulfate 3 ML BID 08/01 2200 AC 08/04 INH 2115 Azithromycin 500 MG 07/30 2200 DC 08/03 Dextrose/Water 250 ML IV 2217 Ceftriaxone Sodium 1,000 MG DAILY 07/30 1159 DC 08/04 IV 1127 Dextrose 25 GM ONCE ONE 08/05 0630 DC 08/05 IV 08/05 0631 0630 Dextrose 25 GM ONCE ONE 08/05 0030 DC 08/05 IV 08/05 0031 0028 Furosemide 40 MG ONCE ONE 08/04 1015 DC 08/04 IV 08/04 1016 1128 Heparin Sodium 25,000 UNIT Q24H 08/02 1945 DC 08/02 (Porcine) IV 08/05 1800 2224 Sodium Chloride 500 ML Hydrocortisone 40 MG DAILY 08/04 1000 AC 08/04 Sodium Succinate IV 1128 Lidocaine 1 PAT ONCE ONE 08/04 1130 DC EXT 08/04 1131 Magnesium Oxide 400 MG ONE ONE 08/04 0630 CAN PO 08/04 0631 Magnesium Sulfate 1 GM .STK-MED ONE 08/04 1107 DC IM 08/04 1108 Magnesium Sulfate 1 GM ONCE ONE 08/04 0945 DC 08/04 Dextrose/Water 100 ML IV 08/04 1344 1124 Nitroglycerin 1 GM Q6 08/02 2359 AC 08/05 TOP 0630 Non-Formulary 0 SEE ADMIN CRITERIA 08/04 1345 CAN Medication ANY Pantoprazole Sodium 40 MG DAILY 07/30 2200 AC 08/04 IV 1127 Potassium Chloride 20 MEQ BID 08/05 1000 AC 08/05 PO 0641 Potassium Chloride 10 MEQ ONCE ONE 08/04 0945 DC 08/04 IV 08/04 0946 1124 Potassium Chloride 40 MEQ ONCE ONE 08/04 0630 CAN PO 08/04 0631 Potassium Chloride 20 MEQ BID 08/03 1102 DC 08/03 PO 2215 Prednisone 10 MG DAILY 08/04 1000 CAN PO Sodium Chloride 2 SPRAY Q4P PRN 07/31 1715 AC 07/31 KRYSTYNA 1735 Vancomycin HCl 750 MG Q24 08/04 1400 DC Dextrose/Water 250 ML IV Vancomycin HCl 750 MG Q24H 08/04 1400 AC 08/04 Dextrose/Water 250 ML IV 1600 Vancomycin HCl 500 MG Q12 08/04 1333 DC Dextrose/Water 250 ML IV Results Last 24 Hours of Lab Results: Laboratory Tests 08/05 08/04 08/04 8476 2004 1225 Chemistry Sodium (137 - 145 mmol/L) 133 L Potassium (3.5 - 5.1 mmol/L) 3.1 L Chloride (98 - 107 mmol/L) 87 L Carbon Dioxide (22 - 30 mmol/L) 38 H Anion Gap (5 - 16) 7 BUN (7 - 17 mg/dL) 25 H Creatinine (0.5 - 1.0 mg/dL) 0.8 Estimated GFR (>60 ml/min) > 60 Glucose (65 - 99 mg/dL) 49 *L Calcium (8.4 - 10.2 mg/dL) 8.1 L Phosphorus (2.5 - 4.5 mg/dL) 2.9 Magnesium (1.6 - 2.3 mg/dL) 1.7 Total Bilirubin (0.2 - 1.3 mg/dL) 0.3 AST (14 - 36 U/L) 38 H ALT (9 - 52 U/L) 35 Albumin (3.5 - 5.0 g/dL) 2.6 L Coagulation APTT (25 - 37 SEC) 71 H 58 H Hematology CBC w Diff MAN DIFF ORDERED WBC (4.8 - 10.8 /CUMM) 4.1 L RBC (4.20 - 5.40 /CUMM) 3.47 L Hgb (12.0 - 16.0 G/DL) 10.1 L Hct (37 - 47 %) 32.1 L MCV (81.0 - 99.0 FL) 92.7 MCH (27.0 - 31.0 PG) 29.3 MCHC (33.0 - 37.0 G/DL) 31.6 L RDW (11.5 - 14.5 %) 21.4 H Plt Count (130 - 400 /CUMM) 48 L MPV (7.4 - 10.4 FL) 9.4 Gran % (42.2 - 75.2 %) 25.6 L Lymphocytes % (20.5 - 51.1 %) 71.9 H Monocytes % (1.7 - 9.3 %) 2.4 Eosinophils % (0 - 5 %) 0 Basophils % (0.0 - 2.0 %) 0.1 Absolute Granulocytes (1.4 - 6.5 /CUMM) 1.0 L Segmented Neutrophils (42.2 - 75.2 %) 21 L Band Neutrophils (0.0 - 5.0 %) 1 Absolute Lymphocytes (1.2 - 3.4 /CUMM) 2.9 Lymphocytes (20.5 - 51.1 %) 72 H Monocytes (1.7 - 9.3 %) 6 Absolute Monocytes (0.10 - 0.60 /CUMM) 0.1 Absolute Eosinophils (0.0 - 0.7 /CUMM) 0 Absolute Basophils (0.0 - 0.2 /CUMM) 0 Platelet Estimate (ADEQUATE) DECREASED Hypochromic-Microcytic 1+ Poikilocytosis 2+ Ovalocytes 1+ Stomatocytes 1+ Other Body Source Fld Total RBCs Counted (%) 100 Recent Imaging Studies: Chest x-ray 08/04/2017: New airspace opacity right lower lobe, left lower lobe and right upper lobe suggestive of infiltrates, likely aspiration related. There is no suggestion for congestion on this exam. Previously seen pleural effusions are not well visualized on this exam but cannot be excluded. Assessment/Plan Hematology Assessment/Recommendations: Ms. Aguirre is an 86-year-old female with myelodysplastic syndrome and chronic anemia requiring blood transfusions, lupus on hydroxychloroquine and prednisone, GERD, COPD, and hypertension who was brought to the hospital for further evaluation of diarrhea and weakness. She was noted to have severe anemia and hypoxia respiratory failure. She is on facemask at the moment. CXR demonstrated feature concerning for aspiration. She was ceftriaxone, azithromycin, and vancomycin. She is switched to pip/tazo and vancomycin. she is noted to have epistaxis this morning. Her blood work demonstrated worsening anemia. This is concerning for possible bleeding. She should have heparin discontinued for now. She should get 1 unit pooled platelet transfusion given bleeding. DIC should be checked. Thrombocytopenia may be related to infection and drug. Pancytopenia: -transfused 1 unit pooled platelet given bleeding and <50,000 -discontinue heparin drip -monitor CBC Sepsis: -antibiotics as per primary/ID DIC: -monitor PT/PTT/fibrinogen -transfuse with cryo if fibrinogen <100 Please call [phone] with any questions or concerns. Problem List: 1. Thrombocytopenia 2. Chronic anemia 3. Sepsis 4. MDS (myelodysplastic syndrome)
--- NOTE | 2017-08-05 07:54 | PN- Resident CRCU ---
Umair Hall 08/05/17 0753: Subjective HPI/CRCU Issues: The patient was seen and examined this morning. The patient desaturated earlier in the morning to 70s on high flow oxygen. She was noted to be in respiratory distress. Report notes shortness of breath, denied any dizziness, lightheadedness, chest pain, abdominal pain, urinary symptoms. ABG was ordered. Chest x-ray revealed worsening of opacity in the right lower lobe. With attending (Dr. Blackwell) instructions, she was started on BiPAP; her oxygen saturations improved to high 90s. Discussed with family, present at bedside, they agree with intubation if need be. This morning had worsening of thrombocytopenia, hematology recommended with the transfusion. Objective Vital Signs & I&O Last 8 Hrs of Vitals and I&O: Vital Signs Date Time Temp Pulse Resp B/P B/P Pulse O2 O2 Flow FiO2 Mean Ox Delivery Rate 08/05 08 98.1 96 24 108/58 99 BIPAP 100% 08/05 0800 99 BIPAP 100% 08/05 0745 96 99 08/05 0745 86 Nasal 100% Cannula 08/05 0400 91 Aerosol 80% Mask 08/05 0000 92 Aerosol 80% Mask 08/05 0000 97.6 76 18 136/80 92 Aerosol 80% Mask 08/04 2115 93 Aerosol 80% Mask 08/04 2000 93 Aerosol 80% Mask 08/04 1600 93 Aerosol 95% Mask 08/04 1600 98.0 83 17 102/56 93 Aerosol 95% Mask 08/04 1200 94 Venti Mask 100% 08/04 1157 93 Aerosol 100% Mask Intake & Output 08/05 1600 08/05 0800 08/05 0000 Intake Total 254 686 Output Total 235 440 Balance 19 246 Intake, IV 104 566 Intake, Oral 150 120 Output, Urine 235 440 Exam General Appearance: moderate distress Other Physical Findings: Head: atraumatic, normal appearance Ears, Nose, Throat: normal ENT inspection Neck: normal inspection, supple Respiratory: diminished breath sounds bilaterally Cardiovascular: regular rate/rhythm Gastrointestinal: normal bowel sounds, soft, non-tender Extremities: no edema Cranial Nerves: normal hearing, PERRL Skin: intact Current Medications: Current Medications Sig/Zeb Start time Last Medication Dose Route Stop Time Status Admin Acetaminophen 1,000 MG .STK-MED ONE 08/04 1118 DC IV 08/04 1119 Albuterol Sulfate 3 ML BID 08/01 2200 AC 08/05 INH 0745 Azithromycin 500 MG 2200 07/30 2200 DC 08/03 Dextrose/Water 250 ML IV 2217 Ceftriaxone Sodium 1,000 MG DAILY 07/30 1159 DC 08/04 IV 1127 Dextrose 25 GM ONCE ONE 08/05 0630 DC 08/05 IV 08/05 0631 0630 Dextrose 25 GM ONCE ONE 08/05 0030 DC 08/05 IV 08/05 0031 0028 Heparin Sodium 25,000 UNIT Q24H 08/02 1945 DC 08/02 (Porcine) IV 08/05 1800 2224 Sodium Chloride 500 ML Hydrocortisone 40 MG DAILY 08/04 1000 AC 08/05 Sodium Succinate IV 0957 Lidocaine 1 PAT ONCE ONE 08/04 1130 DC EXT 08/04 1131 Magnesium Sulfate 1 GM .STK-MED ONE 08/04 1107 DC IM 08/04 1108 Magnesium Sulfate 1 GM ONCE ONE 08/04 0945 DC 08/04 Dextrose/Water 100 ML IV 08/04 1344 1124 Nitroglycerin 1 GM Q6 08/02 2359 AC 08/05 TOP 0630 Non-Formulary 0 SEE ADMIN CRITERIA 08/04 1345 CAN Medication ANY Pantoprazole Sodium 40 MG DAILY 07/30 2200 AC 08/05 IV 0957 Potassium Chloride 20 MEQ BID 08/05 1000 AC 08/05 PO 0641 Potassium Chloride 10 MEQ Q1H 08/05 0915 AC 08/05 IV 08/05 1216 0950 Sodium Chloride 2 SPRAY Q4P PRN 07/31 1715 AC 07/31 KRYSTYNA 1735 Vancomycin HCl 750 MG Q24 08/04 1400 DC Dextrose/Water 250 ML IV Vancomycin HCl 750 MG Q24H 08/04 1400 AC 08/04 Dextrose/Water 250 ML IV 1600 Vancomycin HCl 500 MG Q12 08/04 1333 DC Dextrose/Water 250 ML IV Impression/Plan Impression/Problem List Impression: This is a 86 year old lady with past medical history significant for COPD, MDS, SLE, anemia seen for evaluation of diarrhea and weakness with "flu-like" symptoms found to have respiratory failure with sepsis and pneumonia requiring ICU admission. Assessment/plan: #Acute hypoxemic respiratory failure: * Had another episode of desaturation, chest x-ray revealed worsening of right lower lobe opacification, she wasn't started on BiPAP * Follow-up ABG results. * The patient was made nothing by mouth * On prednisone 10 mg daily, continue with equivalent of IV Solu-Cortef 40 mg daily, checked with pharmacy * IV diuretics on a when necessary basis * Repeat swallow evaluation today #Hypoglycemia: * Glucose 49 this morning, required IV dextrose 25 g push #History of COPD: * TRC/nebs as needed * IV steroids as above #Sepsis: * Most likely respiratory source * Possible consolidation in the chest, likely pneumonia, suspect aspiration pneumonia * Sputum cultures were sent * Continue with vancomycin and Zosyn, checked dosing with pharmacy #Elevated troponins * Troponin peaked, initially attributes it to demand ischemia given her comorbidities, she was started on IV heparin. * IV heparin was discontinued this morning given thrombocytopenia. * Follow cardiology recommendations #History of MDS/anemia * Initially DIC panel positive for very low Fibrinogen; repeat shows elevated fibrinogen. * Appreciate Heme/Onc recs * Will give FFP if active bleeding * Monitor DIC panel #History of Lupus: * On hydroxychloroquine and prednisone 10 mg daily at home. * Hydroxychloroquine is associated with leukopenia, thrombocytopenia and aplastic anemia along with hemolysis. Note that after discontinuing medication her counts seem to have significantly improved. * Continue to hold hydroxychloroquine * Continue steroids #Electrolytes abnormalities * Monitor electrolytes and replete accordingly * Noted to be hypokalemic to 3.1 this morning; will replete with IV potassium at this point given she is nothing by mouth. * Considering JENY tube placement * Will check potassium level later today. #Transaminitis: * Unsure of etiology. Transamanitis in 100s since admission. Unsure if her coagulopathy is secondary to liver/DIC. ??fx of hydroxychloroquine. #DVT PPX: * ALPS given worsening of thrombocytopenia #Code status: * Full code Problem List: 1. Thrombocytopenia 2. Respiratory failure Pain Ratin Tomorrow's Labs & Rationales: CBC to monitor platelets and H&H ICU bundle to monitor electrolytes Plan DVT/Prophylaxis: Marck Ca MD 08/05/17 1154: Attending MD Review Statement Attending Sign Off Attending Cosign Statement: I have: examined this patient, reviewed [facility] EMR data, personally reviewd images, discussd w/resident/PA/HOP PICKER, discussed mgmt plan w/monique, discussed mgmt plan w/CM, discussed mgmt plan w/pt, agreed w/resident/PA/HOP PICKER, amended to note. Other Findings: Impression 86 year old woman hx of MDS/Anemia acute hypoxemic respiratory failure sepsis - likely urinary vs GI source troponinemia Plan Respiratory -titrate as needed to keep spo2 >88% ID -f/u ID recs regarding abx -likely underlying pneumonia - mostly pronounced at her RLL with aspiration the most likely cause CVS -cardiology consulted -f/u recommendations Heme -f/u hematology recs Metabolic -electrolyte improved -taper steroids Alimentary -diet ordered, aspiration precautions Neuro -alert Full Code TTS 35 min
[2017-08-05 08:00] VITALS: BP 108/58
--- NOTE | 2017-08-05 08:07 | RADIOLOGY REPORT ---
EXAMINATION: XR PORTABLE CHEST CLINICAL INFORMATION: Pneumonia/aspiration. COMPARISON: Multiple prior chest x-rays most recent prior dated 08/04/2017 TECHNIQUE: Portable frontal view of the chest was obtained. FINDINGS: Stable mild cardiomegaly. Hyperinflated lungs noted bilaterally similar to the previous examination. Interval worsening airspace opacification right lower lung. Stable retrocardiac opacification lower lung. Trace effusion pleural thickening noted bilaterally. Bony thorax is intact. IMPRESSION: Worsening airspace disease right lower lung. Stable airspace disease left lower lung including the retrocardiac region. Findings may represent aspiration pneumonia in the appropriate clinical setting. Trace effusions.
--- NOTE | 2017-08-05 09:30 | PN- Cardiology ---
Subjective Subjective: * Patient is short of breath without chest discomfort. She is on Bipap. * sinus rhythm * cardiac enzymes are are trending down * Very low platelets with a nose bleed this morning. * Potassium is 3.1 Objective Vital Signs and I&Os Vital Signs Date Time Temp Pulse Resp B/P B/P Pulse O2 O2 Flow FiO2 Mean Ox Delivery Rate 08/05 799 98.1 96 24 108/58 99 BIPAP 100% 08/05 0745 96 99 08/05 0745 86 Nasal 100% Cannula 08/05 0400 91 Aerosol 80% Mask 08/05 0000 92 Aerosol 80% Mask 08/05 0000 97.6 76 18 136/80 92 Aerosol 80% Mask 08/04 2115 93 Aerosol 80% Mask 08/04 2000 93 Aerosol 80% Mask 08/04 1600 93 Aerosol 95% Mask 08/04 1600 98.0 83 17 102/56 93 Aerosol 95% Mask 08/04 1200 94 Venti Mask 100% 08/04 1157 93 Aerosol 100% Mask Intake & Output 08/05 1600 08/05 0800 08/05 0000 08/04 1600 08/04 0800 08/04 0000 Intake Total 254 686 225 100 711 Output Total 235 440 600 Balance 19 246 -375 100 711 Intake, IV 104 566 225 100 351 Intake, Oral 150 120 360 Number 0 1 Bowel Movements Output, Urine 235 440 600 Physical Exam: General: WD/WN male in NAD; alert and oriented x 3 Neck: no JVD, no carotid bruit Heart: RRR w/o murmur Lungs: decreased air movement bilaterally Extremities; no edema with venous stasis changes, legs are ecchymotic Assessment/Plan Assessment/Plan * This patient had an elevated troponin which was initially attributed to demand ischemia. Her enzyme are now trending down and she is pain free. She is not a reasonable and safe candidate for acute intervention due to her breathing issues , inability to lie flat and very low platelets with bleeding. There is no acute injury current on her ECG and she is pain free. We will continue medical therapy with NTG paste 1 inch Q6 hrs. Ensure adequate oxygenation. Monitor on telemetry in the CCU. We will hold off on a statin since her hepatic transaminases are elevated at present. * This patient's blood pressue is borderline. Her prior hypotension is may have been related to sepsis, volume loss in the setting of bleeding or adrenal insufficiency due to being on prolonged steroid therapy. Continue antibiotic therapy as recommended by Dr. Olvera and continue steroids. * This patient needs to have her potassium repleted especially in the setting of continued Lasix use, a decreased EF and recent positive troponin. Okay to begin with KCL 20meq IV but she may need a small NG tube for administration. * Diurese with Lasix 40mg IV BID or as tolerated by blood pressure. Continue telemetry? Yes
[2017-08-05 16:00] VITALS: BP 100/58
--- NOTE | 2017-08-05 16:22 | PN- Infect Dx ---
Subjective Subjective: The patient desaturated earlier in the morning to 70s on high flow oxygen. She was noted to be in respiratory distress. Requiring BiPAP. Chest x-ray revealed worsening of opacity in the right lower lobe. Review of Systems Comments: 12 points reviewed as noted, otherwise negative. Has shortness of breath; chest pain, abdominal pain, urinary symptoms. Objective Last 24 Hrs of Vital Signs/I&O Vital Signs Date Time Temp Pulse Resp B/P B/P Pulse O2 O2 Flow FiO2 Mean Ox Delivery Rate 08/05 1401 78 98 08/05 1200 96 BIPAP 75% 08/05 1114 98 97 08/05 0800 98.1 96 24 108/58 99 BIPAP 100% 08/05 0800 99 BIPAP 100% 08/05 0745 96 99 08/05 0745 86 Nasal 100% Cannula 08/05 0400 91 Aerosol 80% Mask 08/05 0000 92 Aerosol 80% Mask 08/05 0000 97.6 76 18 136/80 92 Aerosol 80% Mask 08/04 2115 93 Aerosol 80% Mask 08/04 1999 93 Aerosol 80% Mask Intake & Output 08/05 1600 08/05 0800 08/05 0000 Intake Total 600 254 686 Output Total 150 235 440 Balance 450 19 246 Intake, Blood 280 Product Intake, IV 320 104 566 Intake, Oral 150 120 Output, Urine 150 235 440 Physical Exam Other Physical Findings: EN: elderly thin and frail, mild resp distress HEENT: NC/AT,, anicteric sclera NECK: Supple, no MARIAA CARD: S1, S2 present, no m/g/r PULM: BS present, few b/l rhonchi, bibasilar rales ABD: Soft, NT NEURO: Awake and alert, answering questions appropriately EXT: no cyanosis or pedal edema Results Last 24 Hours of Lab Results: Laboratory Tests 08/05 08/05 08/04 4945 0359 2004 Blood Gas pH (7.35 - 7.45 PH) 7.52 H pCO2 (35 - 45 TORR) 39 pO2 (80 - 100 TORR) 117 H HCO3 (21 - 28 MEQ/L) 31 H ABG O2 Sat (Measured) (>96.0 %) 98.0 P-50 (Temp Corrected) YES Carboxyhemoglobin (1.5 - 5.0 %) 0.4 L O2 Concentration % 75% Temperature (97.0 - 100.0 FARH) 98.1 Respiration Rate (BPM) 18 O2 Delivery Method BIPAP Vent Mode ST Expiratory Pressure (CM H2O P) 6 Inspiratory Pressure (CM H2O P) 16 Chemistry Sodium (137 - 145 mmol/L) 133 L Potassium (3.5 - 5.1 mmol/L) 3.1 L Chloride (98 - 107 mmol/L) 87 L Carbon Dioxide (22 - 30 mmol/L) 38 H Anion Gap (5 - 16) 7 BUN (7 - 17 mg/dL) 25 H Creatinine (0.5 - 1.0 mg/dL) 0.8 Estimated GFR (>60 ml/min) > 60 Glucose (65 - 99 mg/dL) 49 *L Calcium (8.4 - 10.2 mg/dL) 8.1 L Phosphorus (2.5 - 4.5 mg/dL) 2.9 Magnesium (1.6 - 2.3 mg/dL) 1.7 Total Bilirubin (0.2 - 1.3 mg/dL) 0.3 AST (14 - 36 U/L) 38 H ALT (9 - 52 U/L) 35 Albumin (3.5 - 5.0 g/dL) 2.6 L Coagulation APTT (25 - 37 SEC) 71 H Hematology CBC w Diff MAN DIFF ORDERED WBC (4.8 - 10.8 /CUMM) 4.1 L RBC (4.20 - 5.40 /CUMM) 3.47 L Hgb (12.0 - 16.0 G/DL) 10.1 L Hct (37 - 47 %) 32.1 L MCV (81.0 - 99.0 FL) 92.7 MCH (27.0 - 31.0 PG) 29.3 MCHC (33.0 - 37.0 G/DL) 31.6 L RDW (11.5 - 14.5 %) 21.4 H Plt Count (130 - 400 /CUMM) 48 L MPV (7.4 - 10.4 FL) 9.4 Gran % (42.2 - 75.2 %) 25.6 L Lymphocytes % (20.5 - 51.1 %) 71.9 H Monocytes % (1.7 - 9.3 %) 2.4 Eosinophils % (0 - 5 %) 0 Basophils % (0.0 - 2.0 %) 0.1 Absolute Granulocytes (1.4 - 6.5 /CUMM) 1.0 L Segmented Neutrophils (42.2 - 75.2 %) 21 L Band Neutrophils (0.0 - 5.0 %) 1 Absolute Lymphocytes (1.2 - 3.4 /CUMM) 2.9 Lymphocytes (20.5 - 51.1 %) 72 H Monocytes (1.7 - 9.3 %) 6 Absolute Monocytes (0.10 - 0.60 /CUMM) 0.1 Absolute Eosinophils (0.0 - 0.7 /CUMM) 0 Absolute Basophils (0.0 - 0.2 /CUMM) 0 Platelet Estimate (ADEQUATE) DECREASED Hypochromic-Microcytic 1+ Poikilocytosis 2+ Ovalocytes 1+ Stomatocytes 1+ Miscellaneous Phlebotomy Draw Site RIGHT RADIAL Other Body Source Fld Total RBCs Counted (%) 100 Last 24 Hours of Red Results: SPEC #: [id number] BRANDEN: 08/04/17 STATUS: RES RECD: 08/04/[address]: Isabel PROCTOR, Randy SOURCE: LOWER RESP ENTR: 08/04/[address]: Lauryn PROCTOR,[place] SPDESC: SPUTUM Marck Blackwell MD ORDERED: LOWER RESPIRATO Procedure Result > GRAM STAIN Final 08/04/17 WHITE BLOOD CELLS FEW SQUAMOUS CELLS FEW GRAM POSITIVE COCCI FEW GRAM NEGATIVE RODS RARE GRAM POSITIVE RODS RARE > LOWER RESPIRATORY CULTURE Preliminary 08/05/17 Mixed ean after 1 day with Moderate growth of: GRAM NEGATIVE RODS Identification and sensitivities to follow Recent Imaging Studies: CXR IMPRESSION: Worsening airspace disease right lower lung. Stable airspace disease left lower lung including the retrocardiac region. Findings may represent aspiration pneumonia in the appropriate clinical setting. Trace effusions. DICTATED BY: Chano Wilson MD DATE/TIME DICTATED:08/05/17799 Assessment/Plan ID Impression: 86-year-old woman with a history of lupus (maintained on prednisone 10 mg daily) , COPD, hypertension and myelodysplastic syndrome, and bri esophagitis was admitted 07/29 with sepsis. Temperatures remaining normal (on steroids), while on Ceftriaxone and Azithromycin Day 6 of treatment for sepsis, most likely secondary to pneumonia. Persistent cough; CXR 08/04 revealing new airspace opacity right lower lobe, left lower lobe and right upper lobe suggestive of infiltrates, likely aspiration related. Of note MBS on 08/02 was negative for aspiration. Leukopenia; worsening thrombocytopenia. Suggestion: 1. F/U final sputum cx results from 08/04 to further guide abx treatment; preliminary GNR; aspiration precautions. 2. Trend CBC/BMP; please call if fever. 3. Cont Zosyn 3.375 gm q 8 h D #2. 4. Repeat nasal MRSA surv cx.
[2017-08-05 18:44] LABS: ABSOLUTE BASOPHIL COUNT 0 /CUMM (0.0-0.2); ABSOLUTE EOSINOPHIL COUNT 0 /CUMM (0.0-0.7); ABSOLUTE GRANULOCYTE CT 0.5 /CUMM (1.4-6.5); ABSOLUTE LYMPH COUNT 1.5 /CUMM (1.2-3.4); ABSOLUTE MONOCYTE COUNT 0.7 /CUMM (0.10-0.60); BASOPHIL % 0 % (0.0-2.0); EOSINOPHIL % 0 % (0-5); GRANULOCYTE % 18.2 % (42.2-75.2); HEMATOCRIT 29.1 % (37-47); MEAN CORPUSCULAR HGB CONC 32.4 G/DL (33.0-37.0); MEAN CORPUSCULAR VOLUME 92.5 FL (81.0-99.0); MEAN PLATELET VOLUME 9.6 FL (7.4-10.4); PTT 27 SEC (25-37); RBC DISTRIBUTION WIDTH 21.6 % (11.5-14.5); RED BLOOD CELL CT 3.15 /CUMM (4.20-5.40); WHITE BLOOD CELL COUNT 2.7 /CUMM (4.8-10.8)
[2017-08-05 18:49] LABS: PLATELET COUNT 76 /CUMM (130-400)
[2017-08-06] VITALS: BP 102/60
[2017-08-06 05:02] LABS: ABSOLUTE BASOPHIL COUNT 0 /CUMM (0.0-0.2); ABSOLUTE EOSINOPHIL COUNT 0 /CUMM (0.0-0.7); ABSOLUTE GRANULOCYTE CT 0.3 /CUMM (1.4-6.5); BASOPHIL % 0 % (0.0-2.0); MEAN CORPUSCULAR VOLUME 93.2 FL (81.0-99.0)
[2017-08-06 05:14] LABS: ABSOLUTE LYMPH COUNT 2.2 /CUMM (1.2-3.4); ABSOLUTE MONOCYTE COUNT 0.8 /CUMM (0.10-0.60); EOSINOPHIL % 0.2 % (0-5); HEMATOCRIT 28.1 % (37-47); MEAN CORPUSCULAR HGB 30.2 PG (27.0-31.0); MEAN CORPUSCULAR HGB CONC 32.4 G/DL (33.0-37.0); MEAN PLATELET VOLUME 9.2 FL (7.4-10.4); RBC DISTRIBUTION WIDTH 21.7 % (11.5-14.5); RED BLOOD CELL CT 3.02 /CUMM (4.20-5.40); WHITE BLOOD CELL COUNT 3.3 /CUMM (4.8-10.8)
[2017-08-06 05:45] LABS: GRANULOCYTE % 8.8 % (42.2-75.2)
[2017-08-06 05:46] LABS: PLATELET COUNT 60 /CUMM (130-400)
--- NOTE | 2017-08-06 07:38 | PN- Hematology ---
Subjective Subjective: She feels a little better this morning. She has no fever or chills. She has no nausea or vomiting. She denies any new pain. Epistaxis has improved. She is back on high flow nasal canula. Review of Systems: Constitutional: Denies: chills, fever. EENTM: Reports: epistaxis improved. Cardiovascular: Denies: chest pain. Respiratory: Reports: short of breath. Denies: hemoptysis. Gastrointestinal: Denies: abdominal pain. Musculoskeletal: Denies: back pain. Hematologic/Endocrine: Reports: bruising. All Other Systems: Reviewed and Negative Objective Vital Signs and I&Os Vital Signs Date Time Temp Pulse Resp B/P B/P Pulse O2 O2 Flow FiO2 Mean Ox Delivery Rate 08/06 0400 98 Nasal 75% Cannula 08/06 0143 97 Nasal 75% Cannula 08/06 0000 97.8 82 23 102/60 98 Nasal 75% Cannula 08/06 0000 98 Nasal 75% Cannula 08/05 2000 97 Nasal 80% Cannula 08/05 1850 94 BIPAP 55% 08/05 1600 99.7 78 24 100/58 96 BIPAP 60% 08/05 1600 96 BIPAP 60% 08/05 1600 80 97 08/05 1401 78 98 08/05 1200 96 BIPAP 75% 08/05 1114 98 97 08/05 0800 98.1 96 24 108/58 99 BIPAP 100% 08/05 0800 99 BIPAP 100% 08/05 0745 96 99 08/05 0745 86 Nasal 100% Cannula Intake & Output 08/06 0800 08/06 0000 08/05 1600 08/05 0800 08/05 0000 08/04 1600 Intake Total 100 200 600 254 686 225 Output Total 375 935 150 235 440 600 Balance -275 -735 450 19 246 -375 Intake, Blood 280 Product Intake, IV 100 200 320 104 566 225 Intake, Oral 150 120 Output, Urine 375 935 150 235 440 600 Physical Exam: General Appearance: no apparent distress, alert, awake, comfortable Head: atraumatic, normal appearance Ears, Nose, Throat: dry blood in nares, high flow NC in place Respiratory: chest non-tender, no respiratory distress, quiet respiration, on facemask Cardiovascular: regular rate/rhythm Abdomen: normal bowel sounds, soft, non-tender Extremities: no edema Neurologic/Psychiatric: awake, alert, oriented x 3 Skin: diffuse ecchymoses and hyperpigmentation in the extremities Current Medications: Current Medications Sig/Zeb Start time Last Medication Dose Route Stop Time Status Admin Albuterol Sulfate 3 ML BID 08/01 220 AC 08/05 INH 2145 Dextrose 25 GM ONCE ONE 08/06 0600 DC 08/06 IV 08/06 0601 0559 Dextrose 12.5 GM ONCE ONE 08/06 0115 DC 08/06 IV 08/06 0116 0131 Furosemide 20 MG ONCE ONE 08/06 0545 DC 08/06 IV 08/06 0546 0643 Furosemide 40 MG ONCE ONE 08/05 1500 DC 08/05 IV 08/05 1501 1525 Hydrocortisone 40 MG DAILY 08/04 1000 AC 08/05 Sodium Succinate IV 0957 Nitroglycerin 1 GM Q6 08/02 2359 AC 08/05 TOP 1819 Pantoprazole Sodium 40 MG DAILY 07/30 2200 AC 08/05 IV 0957 Potassium Chloride 10 MEQ Q1H 08/06 0645 AC 08/06 IV 08/06 0746 0646 Potassium Chloride 10 MEQ ONCE ONE 08/05 1930 DC 08/05 IV 08/05 1931 2020 Potassium Chloride 20 MEQ BID 08/05 1000 DC 08/05 PO 0641 Potassium Chloride 10 MEQ Q1H 08/05 0915 DC 08/05 IV 08/05 1216 1315 Sodium Chloride 2 SPRAY Q4P PRN 07/31 1715 AC 07/31 KRYSTYNA 1735 Vancomycin HCl 750 MG Q24H 08/04 1400 DC 08/04 Dextrose/Water 250 ML IV 1600 Results Last 24 Hours of Lab Results: Laboratory Tests 08/06 08/05 0430 1710 Chemistry Sodium (137 - 145 mmol/L) 138 133 L Potassium (3.5 - 5.1 mmol/L) 3.4 L 3.8 Chloride (98 - 107 mmol/L) 90 L 88 L Carbon Dioxide (22 - 30 mmol/L) 39 H 37 H Anion Gap (5 - 16) 9 9 BUN (7 - 17 mg/dL) 24 H 22 H Creatinine (0.5 - 1.0 mg/dL) 0.9 0.9 Estimated GFR (>60 ml/min) 59 L 59 L Glucose (65 - 99 mg/dL) 63 L 131 H Calcium (8.4 - 10.2 mg/dL) 8.2 L 8.2 L Phosphorus (2.5 - 4.5 mg/dL) 3.1 3.5 Magnesium (1.6 - 2.3 mg/dL) 1.7 1.7 Total Bilirubin (0.2 - 1.3 mg/dL) 0.6 0.5 AST (14 - 36 U/L) 30 32 ALT (9 - 52 U/L) 36 40 Albumin (3.5 - 5.0 g/dL) 2.8 L 2.9 L Coagulation PT (9.4 - 12.5 SEC) 13.0 H INR (0.90 - 1.19) 1.24 H APTT (25 - 37 SEC) 27 Fibrinogen Activity (200 - 393 MG/DL) 344 Hematology CBC w Diff MAN DIFF ORDERED NO MAN DIFF REQ WBC (4.8 - 10.8 /CUMM) 3.3 L 2.7 L RBC (4.20 - 5.40 /CUMM) 3.02 L 3.15 L Hgb (12.0 - 16.0 G/DL) 9.1 L 9.4 L Hct (37 - 47 %) 28.1 L 29.1 L MCV (81.0 - 99.0 FL) 93.2 92.5 MCH (27.0 - 31.0 PG) 30.2 30.0 MCHC (33.0 - 37.0 G/DL) 32.4 L 32.4 L RDW (11.5 - 14.5 %) 21.7 H 21.6 H Plt Count (130 - 400 /CUMM) 60 L 76 L MPV (7.4 - 10.4 FL) 9.2 9.6 Gran % (42.2 - 75.2 %) 8.8 L 18.2 L Lymphocytes % (20.5 - 51.1 %) 66.6 H 57.0 H Monocytes % (1.7 - 9.3 %) 24.4 H 24.8 H Eosinophils % (0 - 5 %) 0.2 0 Basophils % (0.0 - 2.0 %) 0 0 Absolute Granulocytes (1.4 - 6.5 /CUMM) 0.3 L 0.5 L Segmented Neutrophils (42.2 - 75.2 %) 26 L Band Neutrophils (0.0 - 5.0 %) 5 Absolute Lymphocytes (1.2 - 3.4 /CUMM) 2.2 1.5 Lymphocytes (20.5 - 51.1 %) 63 H Monocytes (1.7 - 9.3 %) 6 Absolute Monocytes (0.10 - 0.60 /CUMM) 0.8 H 0.7 H Absolute Eosinophils (0.0 - 0.7 /CUMM) 0 0 Absolute Basophils (0.0 - 0.2 /CUMM) 0 0 Platelet Estimate (ADEQUATE) VERIFIED BY SMEAR Hypochromic-Microcytic 1+ Poikilocytosis 1+ Anisocytosis 2+ Target Cells 1+ Stomatocytes 1+ 08/05 08/05 1305 0800 Blood Gas pH (7.35 - 7.45 PH) 7.52 H pCO2 (35 - 45 TORR) 39 pO2 (80 - 100 TORR) 117 H HCO3 (21 - 28 MEQ/L) 31 H ABG O2 Sat (Measured) (>96.0 %) 98.0 P-50 (Temp Corrected) YES Carboxyhemoglobin (1.5 - 5.0 %) 0.4 L O2 Concentration % 75% Temperature (97.0 - 100.0 FARH) 98.1 Respiration Rate (BPM) 18 O2 Delivery Method BIPAP Vent Mode ST Expiratory Pressure (CM H2O P) 6 Inspiratory Pressure (CM H2O P) 16 Coagulation APTT Cancelled Miscellaneous Phlebotomy Draw Site RIGHT RADIAL Recent Imaging Studies: CXR 08/05/2017: Worsening airspace disease right lower lung. Stable airspace disease left lower lung including the retrocardiac region. Findings may represent aspiration pneumonia in the appropriate clinical setting. Trace effusions. Assessment/Plan Hematology Assessment/Recommendations: Ms. Aguirre is an 86-year-old female with myelodysplastic syndrome and chronic anemia requiring blood transfusions, lupus on hydroxychloroquine and prednisone, GERD, COPD, and hypertension who was brought to the hospital for further evaluation of diarrhea and weakness. She was noted to have severe anemia and hypoxia respiratory failure. CXR demonstrated worsening RLL opacity concerning for aspiration pneumonia. She is on pip/tazo and vancomycin. She is afebrile. She has some worsening of her hematologic parameters including anemia, thrombocytopenia, and DIC. This is likely related to bleeding and worsening pneumonia. She has improved with the epistaxis after holding heparin drip and transfusing with 1 unit pooled platelet. She should be monitored closely for worsening DIC and bleeding. Pancytopenia: -monitor CBC Sepsis of pulmonary origin: -antibiotics as per primary/ID DIC: -monitor PT/PTT/fibrinogen -transfuse with cryo if fibrinogen <100 Please call [phone] with any questions or concerns. Problem List: 1. Respiratory failure 2. Thrombocytopenia 3. Chronic anemia 4. MDS (myelodysplastic syndrome) 5. Sepsis
[2017-08-06 08:00] VITALS: BP 98/58
--- NOTE | 2017-08-06 08:34 | PN- Resident CRCU ---
Umair Hall 08/06/17 0834: Subjective HPI/CRCU Issues: The patient was seen and examined this morning. She states that she is feeling much better. Has been saturating high 90s on high flow oxygen. Denies headache, nausea, vomiting, dizziness, lightheadedness, shortness of breath, chest pain, abdominal pain, urinary symptoms. Objective Vital Signs & I&O Last 8 Hrs of Vitals and I&O: Intake & Output 08/06 1600 Intake Total Output Total Balance Patient 89 lb 15.99 oz Weight Exam General Appearance: no apparent distress, alert, awake Other Physical Findings: Head: atraumatic, normal appearance Ears, Nose, Throat: normal ENT inspection Neck: normal inspection, supple Respiratory: diminished breath sounds bilaterally; slightly improved compared to last physical exam Cardiovascular: regular rate/rhythm Gastrointestinal: normal bowel sounds, soft, non-tender Extremities: no edema Cranial Nerves: normal hearing, PERRL Skin: intact Current Medications: Current Medications Sig/Zeb Start time Last Medication Dose Route Stop Time Status Admin Albuterol Sulfate 3 ML BID 08/01 2200 AC 08/06 INH 0848 Dextrose 25 GM ONCE ONE 08/06 0600 DC 08/06 IV 08/06 0601 0559 Dextrose 12.5 GM ONCE ONE 08/06 0115 DC 08/06 IV 08/06 0116 0131 Furosemide 20 MG ONCE ONE 08/06 0545 DC 08/06 IV 08/06 0546 0643 Furosemide 40 MG ONCE ONE 08/05 1500 DC 08/05 IV 08/05 1501 1525 Hydrocortisone 40 MG DAILY 08/04 1000 AC 08/06 Sodium Succinate IV 0936 Nitroglycerin 1 GM Q6 08/02 2359 AC 08/05 TOP 1819 Pantoprazole Sodium 40 MG DAILY 07/30 2200 AC 08/06 IV 0935 Potassium Chloride 10 MEQ Q1H 08/06 0645 DC 08/06 IV 08/06 0746 0936 Potassium Chloride 10 MEQ ONCE ONE 08/05 1930 DC 08/05 IV 08/05 1931 2020 Potassium Chloride 20 MEQ BID 08/05 1000 DC 08/05 PO 0641 Sodium Chloride 2 SPRAY Q4P PRN 07/31 1715 AC 07/31 KRYSTYNA 1735 Impression/Plan Impression/Problem List Impression: This is a 86 year old lady with past medical history significant for COPD, MDS, SLE, anemia seen for evaluation of diarrhea and weakness with "flu-like" symptoms found to have respiratory failure with sepsis and pneumonia requiring ICU admission. Assessment/plan: #Acute hypoxemic respiratory failure: * Chest x-ray revealed worsening of right lower lobe opacification * Now off BiPAP, on high flow oxygen with adequate saturations. * The patient was made nothing by mouth * On prednisone 10 mg daily, continue with equivalent of IV Solu-Cortef 40 mg daily, checked with pharmacy * IV diuretics on a when necessary basis * Repeat swallow evaluation today #Hypoglycemia: * No further episode of hypoglycemia so far #History of COPD: * TRC/nebs as needed * IV steroids as above #Sepsis: * Most likely respiratory source * Possible consolidation in the chest, likely pneumonia, suspect aspiration pneumonia * Sputum cultures were sent * Continue with vancomycin and Zosyn, checked dosing with pharmacy #Elevated troponins * Troponin peaked, initially attributes it to demand ischemia given her comorbidities, she was started on IV heparin. * IV heparin was discontinued this morning given thrombocytopenia. * Follow cardiology recommendations #History of MDS/anemia * Initially DIC panel positive for very low Fibrinogen; repeat shows elevated fibrinogen. * Appreciate Heme/Onc recs * Will give FFP if active bleeding * Monitor DIC panel #History of Lupus: * On hydroxychloroquine and prednisone 10 mg daily at home. * Hydroxychloroquine is associated with leukopenia, thrombocytopenia and aplastic anemia along with hemolysis. Note that after discontinuing medication her counts seem to have significantly improved. * Continue to hold hydroxychloroquine * Continue steroids #Electrolytes abnormalities * Monitor electrolytes and replete accordingly * Noted to be hypokalemic to 3.4 this morning; received IV KCL 10 MEQ x2. * Will give another dose of IV KCL 10 MEQ. * Considering JENY tube placement #Transaminitis: * Unsure of etiology. Transamanitis in 100s since admission. Unsure if her coagulopathy is secondary to liver/DIC. ??fx of hydroxychloroquine. #DVT PPX: * ALPS given worsening of thrombocytopenia #Code status: * Full code Problem List: 1. Thrombocytopenia 2. Chronic anemia 3. MDS (myelodysplastic syndrome) 4. Respiratory failure Pain Ratin Tomorrow's Labs & Rationales: CBC to monitor H&H ICU bundle to monitor electrolytes Plan DVT/Prophylaxis: Marck Ca MD 08/06/17 1105: Attending MD Review Statement Attending Sign Off Attending Cosign Statement: I have: examined this patient, reviewed aval EMR data, personally reviewd images, discussd w/resident/PA/RAMP FLIGHT ATTENDANT, discussed mgmt plan w/monique, discussed mgmt plan w/CM, discussed mgmt plan w/pt, agreed w/resident/PA/RAMP FLIGHT ATTENDANT, amended to note. Other Findings: Impression 86 year old woman hx of MDS/Anemia acute hypoxemic respiratory failure sepsis - likely urinary vs GI source troponinemia Plan Respiratory -titrate as needed to keep spo2 >88% ID -f/u ID recs regarding abx -likely underlying pneumonia - mostly pronounced at her RLL with aspiration the most likely cause CVS -cardiology consulted -f/u recommendations Heme -f/u hematology recs Metabolic -electrolyte improved -taper steroids Alimentary -aspiration precautions -ko feed today Neuro -alert Full Code TTS 35 min
[2017-08-06 12:00] VITALS: BP 90/50
--- NOTE | 2017-08-06 12:22 | PN- Infect Dx ---
Subjective Subjective: Low grade temp; no fever. Persistent cough. Off BiPAP; on high flow O2. Review of Systems Comments: 12 points reviewed as noted, otherwise negative. Objective Last 24 Hrs of Vital Signs/I&O Vital Signs Date Time Temp Pulse Resp B/P B/P Pulse O2 O2 Flow FiO2 Mean Ox Delivery Rate 08/06 1200 100 Nasal 60% Cannula 08/06 0845 95 Nasal 60% Cannula 08/06 0800 97 Nasal 70% Cannula 08/06 0800 99.0 78 20 98/58 97 Nasal 70% Cannula 08/06 0400 98 Nasal 75% Cannula 08/06 0143 97 Nasal 75% Cannula 08/06 0000 97.8 82 23 102/60 98 Nasal 75% Cannula 08/06 0000 98 Nasal 75% Cannula 08/05 2000 97 Nasal 80% Cannula 08/05 1850 94 BIPAP 55% 08/05 1600 99.7 78 24 100/58 96 BIPAP 60% 08/05 1600 96 BIPAP 60% 08/05 1600 80 97 08/05 1401 78 98 Intake & Output 08/06 1600 08/06 0800 08/06 0000 Intake Total 100 200 Output Total 375 935 Balance -275 -735 Intake, IV 100 200 Output, Urine 375 935 Patient 89 lb 15.99 oz Weight Physical Exam Other Physical Findings: GEN: elderly thin and frail, mild resp distress HEENT: NC/AT,, anicteric sclera NECK: Supple, no MARIAA CARD: S1, S2 present, no m/g/r PULM: BS present, few b/l rhonchi, bibasilar rales ABD: Soft, NT NEURO: Awake and alert, answering questions appropriately EXT: no cyanosis or pedal edema Results Last 24 Hours of Lab Results: Laboratory Tests 08/06 08/05 0430 1710 Chemistry Sodium (137 - 145 mmol/L) 138 133 L Potassium (3.5 - 5.1 mmol/L) 3.4 L 3.8 Chloride (98 - 107 mmol/L) 90 L 88 L Carbon Dioxide (22 - 30 mmol/L) 39 H 37 H Anion Gap (5 - 16) 9 9 BUN (7 - 17 mg/dL) 24 H 22 H Creatinine (0.5 - 1.0 mg/dL) 0.9 0.9 Estimated GFR (>60 ml/min) 59 L 59 L Glucose (65 - 99 mg/dL) 63 L 131 H Calcium (8.4 - 10.2 mg/dL) 8.2 L 8.2 L Phosphorus (2.5 - 4.5 mg/dL) 3.1 3.5 Magnesium (1.6 - 2.3 mg/dL) 1.7 1.7 Total Bilirubin (0.2 - 1.3 mg/dL) 0.6 0.5 AST (14 - 36 U/L) 30 32 ALT (9 - 52 U/L) 36 40 Albumin (3.5 - 5.0 g/dL) 2.8 L 2.9 L Coagulation PT (9.4 - 12.5 SEC) 13.0 H INR (0.90 - 1.19) 1.24 H APTT (25 - 37 SEC) 27 Fibrinogen Activity (200 - 393 MG/DL) 344 Hematology CBC w Diff MAN DIFF ORDERED NO MAN DIFF REQ WBC (4.8 - 10.8 /CUMM) 3.3 L 2.7 L RBC (4.20 - 5.40 /CUMM) 3.02 L 3.15 L Hgb (12.0 - 16.0 G/DL) 9.1 L 9.4 L Hct (37 - 47 %) 28.1 L 29.1 L MCV (81.0 - 99.0 FL) 93.2 92.5 MCH (27.0 - 31.0 PG) 30.2 30.0 MCHC (33.0 - 37.0 G/DL) 32.4 L 32.4 L RDW (11.5 - 14.5 %) 21.7 H 21.6 H Plt Count (130 - 400 /CUMM) 60 L 76 L MPV (7.4 - 10.4 FL) 9.2 9.6 Gran % (42.2 - 75.2 %) 8.8 L 18.2 L Lymphocytes % (20.5 - 51.1 %) 66.6 H 57.0 H Monocytes % (1.7 - 9.3 %) 24.4 H 24.8 H Eosinophils % (0 - 5 %) 0.2 0 Basophils % (0.0 - 2.0 %) 0 0 Absolute Granulocytes (1.4 - 6.5 /CUMM) 0.3 L 0.5 L Segmented Neutrophils (42.2 - 75.2 %) 26 L Band Neutrophils (0.0 - 5.0 %) 5 Absolute Lymphocytes (1.2 - 3.4 /CUMM) 2.2 1.5 Lymphocytes (20.5 - 51.1 %) 63 H Monocytes (1.7 - 9.3 %) 6 Absolute Monocytes (0.10 - 0.60 /CUMM) 0.8 H 0.7 H Absolute Eosinophils (0.0 - 0.7 /CUMM) 0 0 Absolute Basophils (0.0 - 0.2 /CUMM) 0 0 Platelet Estimate (ADEQUATE) VERIFIED BY SMEAR Hypochromic-Microcytic 1+ Poikilocytosis 1+ Anisocytosis 2+ Target Cells 1+ Stomatocytes 1+ 08/05 1305 Blood Gas pH (7.35 - 7.45 PH) 7.52 H pCO2 (35 - 45 TORR) 39 pO2 (80 - 100 TORR) 117 H HCO3 (21 - 28 MEQ/L) 31 H ABG O2 Sat (Measured) (>96.0 %) 98.0 P-50 (Temp Corrected) YES Carboxyhemoglobin (1.5 - 5.0 %) 0.4 L O2 Concentration % 75% Temperature (97.0 - 100.0 FARH) 98.1 Respiration Rate (BPM) 18 O2 Delivery Method BIPAP Vent Mode ST Expiratory Pressure (CM H2O P) 6 Inspiratory Pressure (CM H2O P) 16 Miscellaneous Phlebotomy Draw Site RIGHT RADIAL Last 24 Hours of Red Results: SPEC #: [id number] BRANDEN: 08/04/17 STATUS: COMP RECD: 08/04/[address]: Isabel PROCTOR, Randy SOURCE: LOWER RESP ENTR: 08/04/[address]: Lauryn PROCTOR,[place] SPDESC: SPUTUM Marck Blackwell MD ORDERED: LOWER RESPIRATO Procedure Result > GRAM STAIN Final 08/04/17113 WHITE BLOOD CELLS FEW SQUAMOUS CELLS FEW GRAM POSITIVE COCCI FEW GRAM NEGATIVE RODS RARE GRAM POSITIVE RODS RARE > LOWER RESPIRATORY CULTURE Final 08/06/17 Mixed ean after 2 days with Moderate growth of: PSEUDOMONAS AERUGINOSA 1. PSEUDOMONAS AERUGINOSA RX AB ------ -- CEFTAZIDIME S CIPROFLOXACIN S GENTAMICIN S MEROPENEM S Recent Imaging Studies: CXR 08/05 IMPRESSION: Worsening airspace disease right lower lung. Stable airspace disease left lower lung including the retrocardiac region. Findings may represent aspiration pneumonia in the appropriate clinical setting. Trace effusions. DICTATED BY: Chano Wilson MD DATE/TIME DICTATED:08/05/17799 COMPUTER TEACHER:CHUY Assessment/Plan ID Impression: 86-year-old woman with a history of lupus (maintained on prednisone 10 mg daily) , COPD, hypertension and myelodysplastic syndrome, and bri esophagitis was admitted 07/29 with sepsis. Persistent cough; CXR 08/05 revealing worsening right lower lobe pneumonia. Most recent sputum culture from 08/04 growing Ps. aeruginosa pansensitive. Leukopenia; thrombocytopenia. Suggestion: 1. Aspiration precautions; pulm toilet. 2. Trend CBC/BMP; please call if fever. 3. Cont Zosyn 3.375 gm q 8 h D #3; start Ceftazidime 2 gm iv q 8 h in am in order to complete total 14 d treatment.
[2017-08-06 16:00] VITALS: BP 90/50
--- NOTE | 2017-08-06 18:48 | RADIOLOGY REPORT ---
EXAMINATION: CHEST 1 VIEW CLINICAL INFORMATION: Tube placement. COMPARISON: 08/05/2017. TECHNIQUE: An AP view of the chest is provided. FINDINGS: The cardiac silhouette is stable. An enteric tube is in place. The tip overlies the left upper quadrant, likely within the stomach. There is a small left pleural effusion with associated airspace disease. There is streaky bibasilar opacification, improved on the right since the prior exam. The osseous structures are stable with healed left lateral rib fractures. IMPRESSION: Enteric tube in place. Slight improved aeration at the right lung base. Small left pleural effusion with bibasilar airspace disease.
--- NOTE | 2017-08-06 20:04 | RADIOLOGY REPORT ---
EXAMINATION: CHEST 1 VIEW CLINICAL INFORMATION: Enteric tube repositioning. COMPARISON: Same day chest radiograph. TECHNIQUE: An AP view of the chest is provided. FINDINGS: The cardiac silhouette is stable. An enteric tube is in place. The weighted tip is present within the left upper quadrant, likely within the stomach. The mediastinal and hilar contours are unremarkable. There is a small left pleural effusion with adjacent airspace disease. There is streaky bibasilar opacification, improved from prior exam. The osseous structures are stable. IMPRESSION: Enteric tube in place with the weighted tip within the left upper quadrant, likely within the stomach. Small left pleural effusion with associated airspace disease. Mild bibasilar streaky hazy opacification.
--- NOTE | 2017-08-06 22:32 | PN- Cardiology ---
Subjective Subjective: * The patient is a bit less short of breath on high flow oxygen. * sinus rhythm * potassium is 3.4 * platelets mildly improved to 60K Objective Vital Signs and I&Os Vital Signs Date Time Temp Pulse Resp B/P B/P Pulse O2 O2 Flow FiO2 Mean Ox Delivery Rate 08/06 2019 97 Nasal 50% Cannula 08/06 1999 94 Nasal 40% Cannula 08/06 1600 92 Nasal 50% Cannula 08/06 1600 98.0 74 19 90/50 92 Nasal 50% Cannula 08/06 1409 94 Nasal 50% Cannula 08/06 1200 98.2 76 20 90/50 97 Nasal 50% Cannula 08/06 1200 100 Nasal 60% Cannula 08/06 0845 95 Nasal 60% Cannula 08/06 0800 97 Nasal 70% Cannula 08/06 0800 99.0 78 20 98/58 97 Nasal 70% Cannula 08/06 0400 98 Nasal 75% Cannula 08/06 0143 97 Nasal 75% Cannula 08/06 0000 97.8 82 23 102/60 98 Nasal 75% Cannula 08/06 0000 98 Nasal 75% Cannula Intake & Output 08/06 1600 08/06 0800 08/06 0000 08/05 1600 08/05 0800 08/05 0000 Intake Total 330 100 200 600 254 686 Output Total 600 375 935 150 235 440 Balance -270 -275 -735 450 19 246 Intake, Blood 280 Product Intake, IV 330 100 200 320 104 566 Intake, Oral 150 120 Number 0 Bowel Movements Output, Urine 600 375 935 150 235 440 Patient 89 lb 15.99 oz Weight Physical Exam: General: WD/WN male in NAD; alert and oriented x 3 Neck: no JVD, no carotid bruit Heart: RRR w/o murmur Lungs: decreased air movement bilaterally Extremities; no edema with venous stasis changes, legs are ecchymotic Assessment/Plan Assessment/Plan * This patient had an elevated troponin which was initially attributed to demand ischemia. Her enzyme are now trending down and she is pain free. She is not a reasonable and safe candidate for acute intervention due to her breathing issues , inability to lie flat and very low platelets with bleeding. There is no acute injury current on her ECG and she is pain free. We will continue medical therapy with NTG paste 1 inch Q6 hrs. Ensure adequate oxygenation. Monitor on telemetry in the CCU. We will hold off on a statin since her hepatic transaminases are elevated at present. * This patient's blood pressue is borderline. Her prior hypotension is may have been related to sepsis, volume loss in the setting of bleeding or adrenal insufficiency due to being on prolonged steroid therapy. Continue antibiotic therapy as recommended by Dr. Olvera and continue steroids. * Replete potassium. * Diurese with Lasix 40mg IV BID or as tolerated by blood pressure. * Check for HIT antibodies Continue telemetry? Yes
[2017-08-07] VITALS: BP 98/60
[2017-08-07 05:09] LABS: MEAN CORPUSCULAR HGB 29.2 PG (27.0-31.0); MEAN CORPUSCULAR HGB CONC 31.4 G/DL (33.0-37.0); MEAN CORPUSCULAR VOLUME 92.8 FL (81.0-99.0); MEAN PLATELET VOLUME 9.4 FL (7.4-10.4); PLATELET COUNT 48 /CUMM (130-400); RBC DISTRIBUTION WIDTH 21.9 % (11.5-14.5); RED BLOOD CELL CT 2.91 /CUMM (4.20-5.40); WHITE BLOOD CELL COUNT 2.3 /CUMM (4.8-10.8)
[2017-08-07 05:18] LABS: PT 13.9 SEC (9.4-12.5); PTT 27 SEC (25-37)
--- NOTE | 2017-08-07 07:36 | PN- Hematology ---
Subjective Subjective: She reports being very thristy. She has NG tube placed yesterday for feeding. Chest x-ray demonstrated some improvement in her RLL opacity. Review of Systems Constitutional: Reports: see HPI. Denies: chills, fever. Cardiovascular: Denies: chest pain. Respiratory: Reports: short of breath. Gastrointestinal: Denies: diarrhea. Neurological/Psychological: Reports: anxiety. All Other Systems: Reviewed and Negative Objective Vital Signs and I&Os Vital Signs Date Time Temp Pulse Resp B/P B/P Pulse O2 O2 Flow FiO2 Mean Ox Delivery Rate 08/07 0400 93 Nasal 50% Cannula 08/07 0056 88 Nasal 45% Cannula 08/07 0000 93 Nasal 45% Cannula 08/07 0000 98.1 73 16 98/60 93 Nasal 45% Cannula 08/06 2019 97 Nasal 50% Cannula 08/06 2000 94 Nasal 40% Cannula 08/06 1600 92 Nasal 50% Cannula 08/06 1600 98.0 74 19 90/50 92 Nasal 50% Cannula 08/06 1409 94 Nasal 50% Cannula 08/06 1200 98.2 76 20 90/50 97 Nasal 50% Cannula 08/06 1200 100 Nasal 60% Cannula 08/06 0845 95 Nasal 60% Cannula 08/06 0800 97 Nasal 70% Cannula 08/06 0800 99.0 78 20 98/58 97 Nasal 70% Cannula Intake & Output 08/07 0800 08/07 0000 08/06 1600 08/06 0800 08/06 0000 08/05 1600 Intake Total 528 200 330 100 200 600 Output Total 145 140 600 375 935 150 Balance 383 60 -270 -275 -735 450 Intake, Blood 280 Product Intake, IV 300 200 330 100 200 320 Intake, Tube 88 Feeding Intake, Tube 140 Irrigant Number 0 0 Bowel Movements Output, Urine 145 140 600 375 935 150 Patient 41.816 kg 40.823 kg Weight Weight Bed scale Measurement Method Physical Exam: General Appearance: no apparent distress, alert, awake, comfortable Head: atraumatic, normal appearance Ears, Nose, Throat: dry blood in nares, high flow NC in place, NG tube in place Respiratory: chest non-tender, no respiratory distress, quiet respiration, on facemask Cardiovascular: regular rate/rhythm Abdomen: normal bowel sounds, soft, non-tender Extremities: no edema Neurologic/Psychiatric: awake, alert, oriented x 3 Skin: diffuse ecchymoses and hyperpigmentation in the extremities, worse in the lower extremity Current Medications: Current Medications Sig/Zeb Start time Last Medication Dose Route Stop Time Status Admin Albuterol Sulfate 3 ML BID 08/01 2199 AC 08/06 INH 2010 Furosemide 40 MG 7:30 AM, & 4:30 PM 08/07 0730 AC IV Hydrocortisone 40 MG DAILY 08/04 1000 AC 08/06 Sodium Succinate IV 0936 Nitroglycerin 1 GM Q6 08/02 2359 AC 08/07 TOP 0545 Pantoprazole Sodium 40 MG DAILY 07/30 2200 AC 08/06 IV 0935 Potassium Chloride 10 MEQ Q1H 08/06 2345 DC 08/07 IV 08/07 0046 0316 Potassium Chloride 10 MEQ ONCE ONE 08/06 1500 DC 08/06 IV 08/06 1501 1458 Potassium Chloride 10 MEQ Q1H 08/06 0645 DC 08/06 IV 08/06 0746 0936 Sodium Chloride 2 SPRAY Q4P PRN 07/31 1715 AC 07/31 KRYSTYNA 1735 Results Last 24 Hours of Lab Results: Laboratory Tests 08/07 08/07 0435 0005 Chemistry Sodium (137 - 145 mmol/L) 139 Potassium (3.5 - 5.1 mmol/L) 3.8 3.4 L Chloride (98 - 107 mmol/L) 96 L Carbon Dioxide (22 - 30 mmol/L) 33 H Anion Gap (5 - 16) 11 BUN (7 - 17 mg/dL) 29 H Creatinine (0.5 - 1.0 mg/dL) 0.8 Estimated GFR (>60 ml/min) > 60 Glucose (65 - 99 mg/dL) 89 Calcium (8.4 - 10.2 mg/dL) 8.4 Phosphorus (2.5 - 4.5 mg/dL) 3.8 Magnesium (1.6 - 2.3 mg/dL) 1.7 Total Bilirubin (0.2 - 1.3 mg/dL) 0.6 AST (14 - 36 U/L) 26 ALT (9 - 52 U/L) 24 Albumin (3.5 - 5.0 g/dL) 2.7 L Coagulation PT (9.4 - 12.5 SEC) 13.9 H INR (0.90 - 1.19) 1.33 H APTT (25 - 37 SEC) 27 Fibrinogen Activity (200 - 393 MG/DL) 401 H Hematology CBC w Diff MAN DIFF ORDERED WBC (4.8 - 10.8 /CUMM) 2.3 L RBC (4.20 - 5.40 /CUMM) 2.91 L Hgb (12.0 - 16.0 G/DL) 8.5 L Hct (37 - 47 %) 27.0 L MCV (81.0 - 99.0 FL) 92.8 MCH (27.0 - 31.0 PG) 29.2 MCHC (33.0 - 37.0 G/DL) 31.4 L RDW (11.5 - 14.5 %) 21.9 H Plt Count (130 - 400 /CUMM) 48 L MPV (7.4 - 10.4 FL) 9.4 Segmented Neutrophils (42.2 - 75.2 %) 34 L Lymphocytes (20.5 - 51.1 %) 58 H Monocytes (1.7 - 9.3 %) 8 Platelet Estimate (ADEQUATE) DECREASED Hypochromic-Microcytic 1+ Poikilocytosis 1+ Ovalocytes 1+ Immunology Heparin-induced Plt Ab Pending Heparin-PF4 AB OD Pending Other Body Source Fld Total RBCs Counted (%) 100 Recent Imaging Studies: Chest x-ray 08/06/2017: The cardiac silhouette is stable. An enteric tube is in place. The tip overlies the left upper quadrant, likely within the stomach. There is a small left pleural effusion with associated airspace disease. There is streaky bibasilar opacification, improved on the right since the prior exam. The osseous structures are stable with healed left lateral rib fractures. Assessment/Plan Hematology Assessment/Recommendations: Ms. Aguirre is an 86-year-old female with myelodysplastic syndrome and chronic anemia requiring blood transfusions, lupus on hydroxychloroquine and prednisone, GERD, COPD, and hypertension who was brought to the hospital for further evaluation of diarrhea and weakness. She was noted to have severe anemia and hypoxia respiratory failure. Chest x-rays demonstrating improvement in the right lower lobe opacity. She has NG tube in place currently. She continues to be on antibiotic and being followed by by infectious disease. Pip/tazo is switched to ceftazidime due to sputum growing out pansensitive P. aeruginosa. Anemia continues to worsen along with platelet count. This is likely related to infection/drug in setting of MDS. DIC panel is stable. She will continue to be monitored for now. Pancytopenia: -continue to monitor CBC Sepsis of pulmonary origin: -antibiotics as per primary/ID DIC: -transfuse with cryo if fibrinogen <100 Please call [phone] with any questions or concerns. Problem List: 1. Respiratory failure 2. Thrombocytopenia 3. Chronic anemia 4. MDS (myelodysplastic syndrome) 5. Pneumonia
[2017-08-07 08:00] VITALS: BP 110/54
--- NOTE | 2017-08-07 08:29 | PN- Resident CRCU ---
Umair Hall 08/07/17 0828: Subjective HPI/CRCU Issues: The patient was seen and examined in the morning. She reports having pain in her legs. Feels dry. Has been tolerating tube feeding. Denies any headache, dizziness, lightheadedness, nausea, vomiting, chest pain, abdominal pain, urinary symptoms. Objective Vital Signs & I&O Last 8 Hrs of Vitals and I&O: Intake & Output 08/07 1600 Intake Total 392 Output Total 650 Balance -258 Intake, IV 92 Intake, Tube 160 Feeding Intake, Tube 140 Irrigant Output, Urine 650 Exam General Appearance: no apparent distress, alert, awake Head: atraumatic, normal appearance, Left side JENY tube intact Other Physical Findings: Ears, Nose, Throat: normal ENT inspection Neck: normal inspection, supple Respiratory: diminished breath sounds bilaterally; not changed compared to last physical exam Cardiovascular: regular rate/rhythm Gastrointestinal: normal bowel sounds, soft, non-tender Extremities: no edema, extensive ecchymosis on lower extremities; tenderness to palpation Cranial Nerves: normal hearing, PERRL Skin: intact Current Medications: Current Medications Sig/Zeb Start time Last Medication Dose Route Stop Time Status Admin Acetaminophen 1,000 MG ONCE ONE 08/08 0130 DC 08/08 IV 08/08 0131 0121 Albuterol Sulfate 3 ML BID 08/01 2199 08/08 INH 0916 Ceftazidime 1,000 MG Q8 08/07 2200 AC 08/08 IV 0552 Ceftazidime 1,000 MG Q12 08/07 1000 DC 08/07 IV 0941 Furosemide 20 MG ONCE ONE 08/07 2300 DC 08/07 IV 08/07 2301 2251 Furosemide 40 MG 7:30 AM, & 4:30 PM 08/07 0730 AC 08/08 IV 1021 Glycerin 2 SPRAY Q2P PRN 08/07 0830 AC 08/07 PO 1200 Hydrocortisone 40 MG DAILY 08/04 1000 AC 08/08 Sodium Succinate IV 1014 Hydromorphone HCl 2 MG Q6P PRN 08/07 2300 CAN PO Magnesium Sulfate 1 GM ONCE ONE 08/08 0645 DC 08/08 Dextrose/Water 100 ML IV 08/08 1044 1000 Morphine Sulfate 2 MG ONCE ONE 08/07 2300 CAN IV 08/07 2301 Nitroglycerin 1 GM Q6 08/02 2359 AC 08/08 TOP 1232 Pantoprazole Sodium 40 MG DAILY 07/30 2200 AC 08/08 IV 1015 Potassium Chloride 10 MEQ Q1H 08/08 0945 DC 08/08 IV 08/08 1046 1045 Potassium Chloride 40 MEQ ONCE ONE 08/08 0545 DC 08/08 PO 08/08 0546 0550 Sodium Chloride 2 SPRAY Q4P PRN 07/31 1715 AC 07/31 KRYSTYNA 1735 Impression/Plan Impression/Problem List Impression: This is a 86 year old lady with past medical history significant for COPD, MDS, SLE, anemia seen for evaluation of diarrhea and weakness with "flu-like" symptoms found to have respiratory failure with sepsis and pneumonia requiring ICU admission. Assessment/plan: #Acute hypoxemic respiratory failure: * Chest x-ray revealed worsening of right lower lobe opacification * Now off BiPAP, on high flow oxygen with adequate saturations. * The patient was started on tube feeding via JENY tube * On prednisone 10 mg daily, continue with equivalent of IV Solu-Cortef 40 mg daily, checked with pharmacy * IV diuretics on a when necessary basis * Repeat swallow evaluation #Bilateral lower extremity discoloration: * Doppler negative for DVTs. * Vascular insult appreciated. They recommend Asael bandage. #Hypoglycemia: * No further episode of hypoglycemia so far #History of COPD: * TRC/nebs as needed * IV steroids as above #Sepsis: * Most likely respiratory source * Possible consolidation in the chest, likely pneumonia, suspect aspiration pneumonia * Sputum cultures growing pansensitive Pseudomonas. * Per ID instructions, will change antibiotics to ceftazidime. Dosing reduced to 1 g TID per ID and pharmacy. #Elevated troponins * Troponin peaked, initially attributes it to demand ischemia given her comorbidities, she was started on IV heparin. * IV heparin was discontinued this given thrombocytopenia. * Follow cardiology recommendations #History of MDS/anemia * Initially DIC panel positive for very low Fibrinogen; repeat shows elevated fibrinogen. * Appreciate Heme/Onc recs * Will give FFP if active bleeding * Monitor DIC panel #History of Lupus: * On hydroxychloroquine and prednisone 10 mg daily at home. * Hydroxychloroquine is associated with leukopenia, thrombocytopenia and aplastic anemia along with hemolysis. Note that after discontinuing medication her counts seem to have significantly improved. * Continue to hold hydroxychloroquine * Continue steroids #Electrolytes abnormalities * Monitor electrolytes and replete accordingly * Noted to be hypokalemic to 3.8 this morning; received IV KCL 10 MEQ x1. #Transaminitis: * Unsure of etiology. Transamanitis in 100s since admission. Unsure if her coagulopathy is secondary to liver/DIC. ??fx of hydroxychloroquine. #DVT PPX: * ALPS given worsening of thrombocytopenia #Code status: * Full code Problem List: 1. Pneumonia Pain Ratin Pain Location: [facility] Labs & Rationales: CBC to monitor H&H ICU bundle to monitor electrolytes Plan DVT/Prophylaxis: Marck Ca MD 08/07/17 1057: Attending MD Review Statement Attending Sign Off Attending Cosign Statement: I have: examined this patient, reviewed avalbl EMR data, personally reviewd images, discussd w/resident/PA/DEFENSE ATTORNEY, discussed mgmt plan w/monique, discussed mgmt plan w/CM, discussed mgmt plan w/pt, agreed w/resident/PA/DEFENSE ATTORNEY, amended to note. Other Findings: Impression 86 year old woman hx of MDS/Anemia acute hypoxemic respiratory failure sepsis - likely urinary vs GI source troponinemia Plan Respiratory -titrate as needed to keep spo2 >88% ID -f/u ID recs regarding abx -likely underlying pneumonia - mostly pronounced at her RLL with aspiration the most likely cause CVS -cardiology consulted -f/u recommendations Heme -f/u hematology recs -vascular sx input regarding leg tenderness and discoloration Metabolic -electrolyte improved -taper steroids Alimentary -aspiration precautions -ko feed, tube feeds Neuro -alert Full Code TTS 35 min
--- NOTE | 2017-08-07 11:59 | PN- Infect Dx ---
Subjective Subjective: No fever; deep cough. Requiring high flow O2. Review of Systems Comments: 12 points reviewed as noted, otherwise negative. Objective Last 24 Hrs of Vital Signs/I&O Vital Signs Date Time Temp Pulse Resp B/P B/P Pulse O2 O2 Flow FiO2 Mean Ox Delivery Rate 08/07 1133 91 Nasal 60% Cannula 08/07 0800 91 Nasal 50% Cannula 08/07 0800 99.0 78 26 110/54 91 Nasal 50% Cannula 08/07 0400 93 Nasal 50% Cannula 08/07 0056 88 Nasal 45% Cannula 08/07 0000 93 Nasal 45% Cannula 08/07 0000 98.1 73 16 98/60 93 Nasal 45% Cannula 08/06 2019 97 Nasal 50% Cannula 08/06 2000 94 Nasal 40% Cannula 08/06 1600 92 Nasal 50% Cannula 08/06 1600 98.0 74 19 90/50 92 Nasal 50% Cannula 08/06 1409 94 Nasal 50% Cannula 08/06 1200 98.2 76 20 90/50 97 Nasal 50% Cannula 08/06 1200 100 Nasal 60% Cannula Intake & Output 08/07 1600 08/07 0800 08/07 0000 Intake Total 528 200 Output Total 145 140 Balance 383 60 Intake, IV 300 200 Intake, Tube 88 Feeding Intake, Tube 140 Irrigant Number 0 Bowel Movements Output, Urine 145 140 Patient 92 lb 3 oz Weight Weight Bed scale Measurement Method Physical Exam Other Physical Findings: GEN: elderly thin and frail, mild resp distress HEENT: NC/AT,, anicteric sclera NECK: Supple, no MARIAA CARD: S1, S2 present, no m/g/r PULM: BS present, few b/l rhonchi ABD: Soft, NT NEURO: Awake and alert, answering questions appropriately EXT: no cyanosis or pedal edema Skin: blood blisters LE's Results Last 24 Hours of Lab Results: Laboratory Tests 08/07 08/07 0435 0005 Chemistry Sodium (137 - 145 mmol/L) 139 Potassium (3.5 - 5.1 mmol/L) 3.8 3.4 L Chloride (98 - 107 mmol/L) 96 L Carbon Dioxide (22 - 30 mmol/L) 33 H Anion Gap (5 - 16) 11 BUN (7 - 17 mg/dL) 29 H Creatinine (0.5 - 1.0 mg/dL) 0.8 Estimated GFR (>60 ml/min) > 60 Glucose (65 - 99 mg/dL) 89 Calcium (8.4 - 10.2 mg/dL) 8.4 Phosphorus (2.5 - 4.5 mg/dL) 3.8 Magnesium (1.6 - 2.3 mg/dL) 1.7 Total Bilirubin (0.2 - 1.3 mg/dL) 0.6 AST (14 - 36 U/L) 26 ALT (9 - 52 U/L) 24 Albumin (3.5 - 5.0 g/dL) 2.7 L Coagulation PT (9.4 - 12.5 SEC) 13.9 H INR (0.90 - 1.19) 1.33 H APTT (25 - 37 SEC) 27 Fibrinogen Activity (200 - 393 MG/DL) 401 H Hematology CBC w Diff MAN DIFF ORDERED WBC (4.8 - 10.8 /CUMM) 2.3 L RBC (4.20 - 5.40 /CUMM) 2.91 L Hgb (12.0 - 16.0 G/DL) 8.5 L Hct (37 - 47 %) 27.0 L MCV (81.0 - 99.0 FL) 92.8 MCH (27.0 - 31.0 PG) 29.2 MCHC (33.0 - 37.0 G/DL) 31.4 L RDW (11.5 - 14.5 %) 21.9 H Plt Count (130 - 400 /CUMM) 48 L MPV (7.4 - 10.4 FL) 9.4 Segmented Neutrophils (42.2 - 75.2 %) 34 L Lymphocytes (20.5 - 51.1 %) 58 H Monocytes (1.7 - 9.3 %) 8 Platelet Estimate (ADEQUATE) DECREASED Hypochromic-Microcytic 1+ Poikilocytosis 1+ Ovalocytes 1+ Immunology Heparin-induced Plt Ab Pending Heparin-PF4 AB OD Pending Other Body Source Fld Total RBCs Counted (%) 100 Last 24 Hours of Red Results: SPEC #: [id number] BRANDEN: 08/06/17 STATUS: COMP RECD: 08/06/[address]: Isabel PROCTOR, Randy SOURCE: UPPER RESP ENTR: 08/06/[address]: Lauryn PROCTOR,[place] SPDESC: Marck Winkler MD ORDERED: ACT SURV NARES Procedure Result > ACTIVE SURVEILLANCE CULTURE Final 08/07/17 NO METHICILLIN RESISTANT STAPH AUREUS ISOLATED Recent Imaging Studies: CXR IMPRESSION: Enteric tube in place with the weighted tip within the left upper quadrant, likely within the stomach. Small left pleural effusion with associated airspace disease. Mild bibasilar streaky hazy opacification. DICTATED BY: Ramon Bermeo MD DATE/TIME DICTATED:08/06/171958 SPECIAL EDUCATION ASSISTANT:CHUY DATE/TIME TRANSCRIBED:08/06/171958 Assessment/Plan ID Impression: 86-year-old woman with a history of lupus (maintained on prednisone 10 mg daily) , COPD, hypertension and myelodysplastic syndrome, and bri esophagitis was admitted 07/29 with sepsis. Persistent cough; CXR 08/05 revealing worsening right lower lobe pneumonia. Most recent sputum culture from 08/04 growing Ps. aeruginosa pansensitive. Leukopenia; thrombocytopenia (DIC). Transaminitis Suggestion: 1. Aspiration precautions; pulm toilet. 2. Trend CBC/BMP; please call if fever. 3. Cont Ceftazidime 2 gm iv q 8 h in am in order to complete total 14 d treatment (D#07/20).
[2017-08-07 12:00] VITALS: BP 110/60
--- NOTE | 2017-08-07 12:55 | Cons- Vascular Surgery ---
General Information and HPI Consulting Request Date of Consult: 08/07/17 Requested By: Marck Blackwell MD History of Present Illness: 86-year-old lady with myelodysplastic syndrome, lupus, GERD, COPD and hypertension was admitted for diarrhea and weakness. She was also found to be thrombocytopenia. Vascular surgery was consulted regarding bilateral lower extremity discoloration possible ischemia. Allergies/Medications Allergies: Coded Allergies: NO KNOWN ALLERGIES (06/06/15) Home Med List: Atorvastatin Calcium (Lipitor) 40 MG TABLET 1 TAB PO DAILY CHOLESTEROL ( Reported) Cholecalciferol (Vitamin D3) (Vitamin D3) 2,000 UNIT TABLET 1 TAB PO DAILY VITAMIN SUPPORT (Reported) Hydroxychloroquine Sulfate 200 MG TABLET 1 TAB PO DAILY LUPUS (Reported) Omeprazole Magnesium (Prilosec Otc) 20 MG TABLET.DR 1 20MG PO DAILY ACID REFLUX (Reported) Potassium Chloride 10 MEQ TABLET.ER 2 TAB PO BID SUPPLEMENT (Reported) Prednisone 5 MG TABLET 1 TAB PO BID LUPUS (Reported) Past History Medical History Neurological: NONE EENT: NONE Cardiovascular: hypertension, hyperlipidemia Respiratory: COPD Gastrointestinal: GERD (dependent on OTC Prilosec xyrs) Hepatic: NONE Renal: urinary incontinence Musculoskeletal: degen joint disease, falls, SLE Psychiatric: NONE Endocrine: osteopenia Blood Disorders: anemia, MYELODYSPLASIA Cancer(s): NONE RN ENTEROSTOMAL/Reproductive: NONE Surgical History Pertinent Surgical History: SKIN GRAFT RIGHT LEG POST FALL Family History Relations & Conditions If Any: FATHER (Hx "liver ca" (? if primary vs. met); non-cirrhotic.). , Age 60+ ; Cause: Postoperative complication. MOTHER, , Age 60+; Cause: Unknown cause of morbidity or mortality. SON, , Age 30-40; Cause: MVA (motor vehicle accident). Psychosocial History Who Do You Live With? spouse (in law apt next to dtr), self Services at Home: None Primary Language: Sinhala Smoking Status: Former Smoker Living Will? no Power of Registered Physical Therapist/HCP? no Functional Ability ADLs Independent: dressing, eating, toileting, bathing. Ambulation: cane IADLs Independent: shopping, housework, finances, food prep, telephone, transportation , medication admin. Review of Systems Review of Systems: Patient denies headache, dizziness, cough, palpitation Exam & Diagnostic Data Vital Signs and I&O Vital Signs Date Time Temp Pulse Resp B/P B/P Pulse O2 O2 Flow FiO2 Mean Ox Delivery Rate 08/07 1200 Nasal 60% Cannula 08/07 1200 98.7 74 22 110/60 92 Nasal 60% Cannula 08/07 1133 91 Nasal 60% Cannula 08/07 0800 91 Nasal 50% Cannula 08/07 0800 99.0 78 26 110/54 91 Nasal 50% Cannula 08/07 0400 93 Nasal 50% Cannula 08/07 0056 88 Nasal 45% Cannula 08/07 0000 93 Nasal 45% Cannula 08/07 0000 98.1 73 16 98/60 93 Nasal 45% Cannula 08/06 2019 97 Nasal 50% Cannula 08/06 2000 94 Nasal 40% Cannula 08/06 1600 92 Nasal 50% Cannula 08/06 1600 98.0 74 19 90/50 92 Nasal 50% Cannula 08/06 1409 94 Nasal 50% Cannula Intake & Output 08/07 1600 08/07 0800 08/07 0000 08/06 1600 08/06 0800 08/06 0000 Intake Total 528 200 330 100 200 Output Total 145 140 600 375 935 Balance 383 60 -270 -275 -735 Intake, IV 300 200 330 100 200 Intake, Tube 88 Feeding Intake, Tube 140 Irrigant Number 0 0 Bowel Movements Output, Urine 145 140 600 375 935 Patient 92 lb 3 oz 89 lb 15.99 oz Weight Weight Bed scale Measurement Method Physical Exam: Patient is alert Lungs: Decreased breath sounds bilaterally Cardiac: Regular rhythm Abdomen: Soft, nontender nondistended Extremities: There are strongly palpable pedal pulses bilaterally. There is dark discoloration of bilateral legs. There are no ulcers. Assessment/Plan Assessment/Plan 86-year-old lady with thrombocytopenia myelodysplastic disorder and other medical issues with bilateral lower extremity discoloration. Given her strongly palpable pedal pulses, I don't think she has significant arterial disease. Her presentation is most consistent with chronic venous insufficiency. Because of her thrombocytopenia, she may have capillary bleeders on the skin causing some pain and worsening of discoloration. Recommendation: Bilateral lower extremity venous duplex Wrap both legs from feet up to above the knee with Asael bandage. Thank you for asking me to be involved in the care of this patient. Consult Acknowledgment - Thank you for your consult request.
[2017-08-07 16:00] VITALS: BP 108/48
--- NOTE | 2017-08-07 16:22 | ULTRASOUND REPORT ---
EXAMINATION: US TRIPLEX OF LOWER EXTREMITIES, BILATERAL CLINICAL INFORMATION: Bilateral lower extremity pain. COMPARISON: None TECHNIQUE: Color-flow triplex imaging with spectral analysis and compression Doppler were performed on the lower extremities. FINDINGS: Respiratory variation, normal compression and augmented flow are noted throughout the lower extremities. The visualized common femoral vein, superficial femoral vein, profunda femoral vein, popliteal vein and midcalf peroneal and posterior tibial venous segments show no evidence of deep venous thrombosis. There is no Marquez's cyst. IMPRESSION: Normal triplex scan without evidence of deep venous thrombosis involving the lower extremities.
[2017-08-08] VITALS: BP 100/70
[2017-08-08 05:05] LABS: ABSOLUTE BASOPHIL COUNT 0 /CUMM (0.0-0.2); ABSOLUTE EOSINOPHIL COUNT 0 /CUMM (0.0-0.7); ABSOLUTE GRANULOCYTE CT 1.2 /CUMM (1.4-6.5); ABSOLUTE LYMPH COUNT 1.1 /CUMM (1.2-3.4); ABSOLUTE MONOCYTE COUNT 2.1 /CUMM (0.10-0.60); BASOPHIL % 0 % (0.0-2.0); EOSINOPHIL % 0 % (0-5); RED BLOOD CELL CT 3.07 /CUMM (4.20-5.40)
[2017-08-08 05:34] LABS: HEMATOCRIT 28.7 % (37-47); MEAN CORPUSCULAR HGB 29.6 PG (27.0-31.0); MEAN CORPUSCULAR HGB CONC 31.8 G/DL (33.0-37.0); MEAN CORPUSCULAR VOLUME 93.3 FL (81.0-99.0); MEAN PLATELET VOLUME 9.6 FL (7.4-10.4); PLATELET COUNT 55 /CUMM (130-400); RBC DISTRIBUTION WIDTH 21.4 % (11.5-14.5)
[2017-08-08 05:38] LABS: GRANULOCYTE % 27.3 % (42.2-75.2); WHITE BLOOD CELL COUNT 4.4 /CUMM (4.8-10.8)
[2017-08-08 05:43] LABS: PT 12.8 SEC (9.4-12.5); PTT 24 SEC (25-37)
--- NOTE | 2017-08-08 07:38 | PN- Hematology ---
Subjective Subjective: She is on Bipap this morning. She denies any new pain. She has no fever or chills. She denies any diarrhea. Review of Systems: Limited due to Bipap Review of Systems Constitutional: Denies: chills, fever. Cardiovascular: Denies: chest pain. Gastrointestinal: Denies: abdominal pain. Musculoskeletal: Denies: back pain. Skin: Reports: dryness. Hematologic/Endocrine: Reports: bruising. Denies: bleeding. All Other Systems: Reviewed and Negative Objective Vital Signs and I&Os Vital Signs Date Time Temp Pulse Resp B/P B/P Pulse O2 O2 Flow FiO2 Mean Ox Delivery Rate 08/08 0659 87 90 08/08 0649 81 91 08/08 0400 92 BIPAP 60% 08/08 0323 76 91 08/08 0021 92 95 08/08 0018 61 96 08/08 0000 93 BIPAP 65% 08/08 0000 98.8 90 28 100/70 93 BIPAP 65% 08/07 2250 65 91 08/07 2120 90 Nasal 80% Cannula 08/07 2000 93 Nasal 80% Cannula 08/07 1656 93 Nasal 70% Cannula 08/07 1600 95 Nasal 70% Cannula 08/07 1600 98.2 71 20 108/48 95 Nasal 70% Cannula 08/07 1300 94 Nasal 70% Cannula 08/07 1200 Nasal 60% Cannula 08/07 1200 98.7 74 22 110/60 92 Nasal 60% Cannula 08/07 1133 91 Nasal 60% Cannula 08/07 0800 91 Nasal 50% Cannula 08/07 0800 99.0 78 26 110/54 91 Nasal 50% Cannula Intake & Output 08/08 0808/08 0000 08/07 1600 08/07 0800 08/07 0000 08/06 1600 Intake Total 680 410 392 528 200 330 Output Total 780 250 650 145 140 600 Balance -100 160 -258 383 60 -270 Intake, IV 100 30 92 300 200 330 Intake, Tube 320 240 160 88 Feeding Intake, Tube 260 140 140 140 Irrigant Number 0 0 0 Bowel Movements Output, Urine 780 250 650 145 140 600 Patient 41.816 kg 40.823 kg Weight Weight Bed scale Measurement Method Physical Exam: General Appearance: no apparent distress, alert, awake, comfortable Head: atraumatic, normal appearance Ears, Nose, Throat: dry blood in nares, NG tube in place Respiratory: chest non-tender, no respiratory distress, quiet respiration, BiPAP in place Cardiovascular: regular rate/rhythm Abdomen: normal bowel sounds, soft, non-tender : rincon in place Extremities: no edema Neurologic/Psychiatric: awake, alert, oriented x 3 Skin: diffuse ecchymoses and hyperpigmentation in the extremities, worse in the lower extremity Current Medications: Current Medications Sig/Zeb Start time Last Medication Dose Route Stop Time Status Admin Acetaminophen 1,000 MG ONCE ONE 08/08 0130 DC 08/08 IV 08/08 0131 0121 Albuterol Sulfate 3 ML BID 08/01 2200 AC 08/07 INH 2118 Ceftazidime 1,000 MG Q8 08/07 2200 AC 08/08 IV 0552 Ceftazidime 1,000 MG Q12 08/07 1000 DC 08/07 IV 0941 Furosemide 20 MG ONCE ONE 08/07 2300 DC 08/07 IV 08/07 230 2251 Furosemide 20 MG ONCE ONE 08/07 1330 DC 08/07 IV 08/07 1331 1324 Furosemide 40 MG 7:30 AM, & 4:30 PM 08/07 0730 AC IV Glycerin 2 SPRAY Q2P PRN 08/07 0830 AC 08/07 PO 1200 Hydrocortisone 40 MG DAILY 08/04 1000 AC 08/07 Sodium Succinate IV 0941 Hydromorphone HCl 2 MG Q6P PRN 08/07 2300 CAN PO Magnesium Sulfate 1 GM ONCE ONE 08/08 0645 AC Dextrose/Water 100 ML IV 08/08 1044 Morphine Sulfate 2 MG ONCE ONE 08/07 2300 CAN IV 08/07 2301 Nitroglycerin 1 GM Q6 08/02 2359 AC 08/08 TOP 0556 Pantoprazole Sodium 40 MG DAILY 07/30 2200 AC 08/07 IV 0941 Potassium Chloride 40 MEQ ONCE ONE 08/08 0545 DC 08/08 PO 08/08 0546 0550 Sodium Chloride 2 SPRAY Q4P PRN 07/31 1715 AC 07/31 KRYSTYNA 1735 Results Last 24 Hours of Lab Results: Laboratory Tests 08/08 0350 Chemistry Sodium (137 - 145 mmol/L) 140 Potassium (3.5 - 5.1 mmol/L) 2.7 *L Chloride (98 - 107 mmol/L) 93 L Carbon Dioxide (22 - 30 mmol/L) 37 H Anion Gap (5 - 16) 11 BUN (7 - 17 mg/dL) 32 H Creatinine (0.5 - 1.0 mg/dL) 0.8 Estimated GFR (>60 ml/min) > 60 Glucose (65 - 99 mg/dL) 132 H Calcium (8.4 - 10.2 mg/dL) 8.6 Phosphorus (2.5 - 4.5 mg/dL) 2.8 Magnesium (1.6 - 2.3 mg/dL) 1.7 Total Bilirubin (0.2 - 1.3 mg/dL) 0.6 AST (14 - 36 U/L) 24 ALT (9 - 52 U/L) 31 Albumin (3.5 - 5.0 g/dL) 3.0 L Coagulation PT (9.4 - 12.5 SEC) 12.8 H INR (0.90 - 1.19) 1.22 H APTT (25 - 37 SEC) 24 L Fibrinogen Activity (200 - 393 MG/DL) 394 H Hematology CBC w Diff MAN DIFF ORDERED WBC (4.8 - 10.8 /CUMM) 4.4 L RBC (4.20 - 5.40 /CUMM) 3.07 L Hgb (12.0 - 16.0 G/DL) 9.1 L Hct (37 - 47 %) 28.7 L MCV (81.0 - 99.0 FL) 93.3 MCH (27.0 - 31.0 PG) 29.6 MCHC (33.0 - 37.0 G/DL) 31.8 L RDW (11.5 - 14.5 %) 21.4 H Plt Count (130 - 400 /CUMM) 55 L MPV (7.4 - 10.4 FL) 9.6 Gran % (42.2 - 75.2 %) 27.3 L Lymphocytes % (20.5 - 51.1 %) 25.6 Monocytes % (1.7 - 9.3 %) 47.1 H Eosinophils % (0 - 5 %) 0 Basophils % (0.0 - 2.0 %) 0 Absolute Granulocytes (1.4 - 6.5 /CUMM) 1.2 L Segmented Neutrophils (42.2 - 75.2 %) 42 L Band Neutrophils (0.0 - 5.0 %) 9 H Absolute Lymphocytes (1.2 - 3.4 /CUMM) 1.1 L Lymphocytes (20.5 - 51.1 %) 34 Monocytes (1.7 - 9.3 %) 15 H Absolute Monocytes (0.10 - 0.60 /CUMM) 2.1 H Absolute Eosinophils (0.0 - 0.7 /CUMM) 0 Absolute Basophils (0.0 - 0.2 /CUMM) 0 Platelet Estimate (ADEQUATE) DECREASED Hypochromic-Microcytic 1+ Anisocytosis 2+ Stomatocytes 1+ Elliptocytes FEW Recent Imaging Studies: US lower extremity 08/07/2017: Respiratory variation, normal compression and augmented flow are noted throughout the lower extremities. The visualized common femoral vein, superficial femoral vein, profunda femoral vein, popliteal vein and midcalf peroneal and posterior tibial venous segments show no evidence of deep venous thrombosis. There is no Marquez's cyst. Assessment/Plan Hematology Assessment/Recommendations: Ms. Aguirre is an 86-year-old female with myelodysplastic syndrome and chronic anemia requiring blood transfusions, lupus on hydroxychloroquine and prednisone, GERD, COPD, and hypertension who was brought to the hospital for further evaluation of diarrhea and weakness. She was noted to have severe anemia and hypoxia respiratory failure. Respiratory status contines to be her main issue. She is on ceftazidime at the moment. NG tube is in place with tube feeding. Bloodwork seems to show some improvement today. Her coags have also been stable. She has no significant changes in DIC parameters. Hemoglobin seems to have improved along with platelet count. Pancytopenia: -no transfusion needed at the moment -continue to monitor CBC Sepsis of pulmonary origin: -antibiotics as per primary/ID DIC: -transfuse with cryo if fibrinogen <100 Please call [phone] with any questions or concerns. Problem List: 1. Pneumonia 2. Chronic anemia 3. Thrombocytopenia 4. MDS (myelodysplastic syndrome) 5. Respiratory failure
[2017-08-08 08:00] VITALS: BP 120/60
--- NOTE | 2017-08-08 10:57 | PN- Resident CRCU ---
Umair Hall 08/08/17 1057: Subjective HPI/CRCU Issues: The patient was seen and examined this morning. She desaturated overnight and was started on the BiPAP. At the time of our interview, she reports having shortness of breath. Denies any nausea, vomiting, dizziness, lightheadedness, headache, chest pain, abdominal pain, urinary symptoms. Has been refusing to wear Asael bandage. Vital signs remain stable. Objective Vital Signs & I&O Last 8 Hrs of Vitals and I&O: Vital Signs Date Time Temp Pulse Resp B/P B/P Pulse O2 O2 Flow FiO2 Mean Ox Delivery Rate 08/08 1425 79 97 08/08 1136 76 93 08/08 0921 94 BIPAP 70% 08/08 08 97 08/08 08 96 BIPAP 80% 08/08 08 98.6 80 20 120/60 97 BIPAP 80% 08/08 0659 87 90 08/08 0649 81 91 08/08 0400 92 BIPAP 60% 08/08 0323 76 91 08/08 0021 92 95 08/08 0018 61 96 08/08 0000 93 BIPAP 65% 08/08 0000 98.8 90 28 100/70 93 BIPAP 65% 08/07 2250 65 91 08/07 2120 90 Nasal 80% Cannula 08/07 1999 93 Nasal 80% Cannula 08/07 1656 93 Nasal 70% Cannula Intake & Output 08/08 1600 08/08 0800 08/08 0000 Intake Total 680 410 Output Total 780 250 Balance -100 160 Intake, IV 100 30 Intake, Tube 320 240 Feeding Intake, Tube 260 140 Irrigant Number 0 Bowel Movements Output, Urine 780 250 Exam General Appearance: alert, awake, on BIPAP Other Physical Findings: Head: atraumatic, normal appearance, Left side JENY tube intact Other Physical Findings: Ears, Nose, Throat: normal ENT inspection Neck: normal inspection, supple Respiratory: diminished breath sounds bilaterally Cardiovascular: regular rate/rhythm Gastrointestinal: normal bowel sounds, soft, non-tender Extremities: no edema, extensive ecchymosis on lower extremities with tenderness to palpation Cranial Nerves: normal hearing, PERRL Skin:see extremities exam Current Medications: Current Medications Sig/Zeb Start time Last Medication Dose Route Stop Time Status Admin Acetaminophen 1,000 MG ONCE ONE 08/08 129 DC 08/08 IV 03/01 0131 0121 Albuterol Sulfate 3 ML BID 08/01 2200 AC 08/08 INH 0916 Ceftazidime 1,000 MG Q8 08/07 2200 AC 08/08 IV 0552 Ceftazidime 1,000 MG Q12 08/07 1000 DC 08/07 IV 0941 Furosemide 20 MG ONCE ONE 08/07 2300 DC 08/07 IV 08/07 2301 2251 Furosemide 40 MG 7:30 AM, & 4:30 PM 08/07 0730 AC 08/08 IV 1021 Glycerin 2 SPRAY Q2P PRN 08/07 0830 AC 08/07 PO 1200 Hydrocortisone 40 MG DAILY 08/04 1000 AC 08/08 Sodium Succinate IV 1014 Hydromorphone HCl 2 MG Q6P PRN 08/07 2300 CAN PO Magnesium Sulfate 1 GM ONCE ONE 08/08 0645 DC 08/08 Dextrose/Water 100 ML IV 08/08 1044 1000 Morphine Sulfate 2 MG ONCE ONE 08/07 2300 CAN IV 08/07 2301 Nitroglycerin 1 GM Q6 08/02 2359 AC 08/08 TOP 1232 Pantoprazole Sodium 40 MG DAILY 07/30 2200 AC 08/08 IV 1015 Potassium Chloride 10 MEQ Q1H 08/08 0945 DC 08/08 IV 08/08 1046 1045 Potassium Chloride 40 MEQ ONCE ONE 08/08 0545 DC 08/08 PO 08/08 0546 0550 Sodium Chloride 2 SPRAY Q4P PRN 07/31 1715 AC 07/31 KRYSTYNA 1735 Impression/Plan Impression/Problem List Impression: This is a 86 year old lady with past medical history significant for COPD, MDS, SLE, anemia seen for evaluation of diarrhea and weakness with "flu-like" symptoms found to have respiratory failure with sepsis and pneumonia requiring ICU admission. Assessment/plan: #Acute hypoxemic respiratory failure: * Will repeat chest x-ray today. * Was started on BiPAP overnight. * On tube feeding via JENY tube * On prednisone 10 mg daily, continue with equivalent of IV Solu-Cortef 40 mg daily, checked with pharmacy * IV diuretics on a when necessary basis * Repeat swallow evaluation #Bilateral lower extremity discoloration: * Doppler negative for DVTs. * Vascular insult appreciated. They recommend Asael bandage. * The patient has been refusing Asael bandage #Hypoglycemia: * No further episode of hypoglycemia so far #History of COPD: * TRC/nebs as needed * IV steroids as above #Sepsis: * Most likely respiratory source * Possible consolidation in the chest, likely pneumonia, suspect aspiration pneumonia * Sputum cultures growing pansensitive Pseudomonas. * Continue with ceftazidime 1 g TID per ID and pharmacy. #Elevated troponins * Troponin peaked, initially attributes it to demand ischemia given her comorbidities, she was started on IV heparin. * IV heparin was discontinued this given thrombocytopenia. * Follow cardiology recommendations #History of MDS/anemia * Initially DIC panel positive for very low Fibrinogen; repeat shows elevated fibrinogen. * Appreciate Heme/Onc recs * Will give FFP if active bleeding * Monitor DIC panel #History of Lupus: * On hydroxychloroquine and prednisone 10 mg daily at home. * Hydroxychloroquine is associated with leukopenia, thrombocytopenia and aplastic anemia along with hemolysis. Note that after discontinuing medication her counts seem to have significantly improved. * Continue to hold hydroxychloroquine * Continue steroids #Electrolytes abnormalities * Monitor electrolytes and replete accordingly * Noted to be hypokalemic to 2.7 this morning; received IV KCL; has been refusing IV potassium, having burning at the site of injection. IV KCl to be tried at a lower rate. Klor via JENY tube * Will repeat K level later today. #Transaminitis: * Unsure of etiology. Transamanitis in 100s since admission. Unsure if her coagulopathy is secondary to liver/DIC. ??fx of hydroxychloroquine. #DVT PPX: * ALPS given worsening of thrombocytopenia #Code status: * Full code Problem List: 1. Thrombocytopenia 2. Respiratory failure Pain Ratin Tomorrow's Labs & Rationales: CBC to monitor H&H ICU bundle to monitor electrolytes Plan DVT/Prophylaxis: Marck Ca MD 08/08/17 1136: Attending MD Review Statement Attending Sign Off Attending Cosign Statement: I have: examined this patient, reviewed [facility] EMR data, personally reviewd images, discussd w/resident/PA/NUCLEAR REACTOR TECHNICIAN, discussed mgmt plan w/monique, discussed mgmt plan w/CM, discussed mgmt plan w/pt, agreed w/resident/PA/NUCLEAR REACTOR TECHNICIAN, amended to note. Other Findings: Impression 86 year old woman hx of MDS/Anemia acute hypoxemic respiratory failure sepsis - likely urinary vs GI source troponinemia Plan Respiratory -titrate as needed to keep spo2 >88% ID -f/u ID recs regarding abx -likely underlying pneumonia - mostly pronounced at her RLL with aspiration the most likely cause CVS -cardiology consulted -f/u recommendations Heme -f/u hematology recs -vascular sx input regarding leg tenderness and discoloration appreciated Metabolic -electrolyte improved -taper steroids Alimentary -aspiration precautions -ko feed, tube feeds Neuro -alert Full Code TTS 35 min
--- NOTE | 2017-08-08 11:58 | PN- Infect Dx ---
Subjective Subjective: No fever; requiring BiPAP. Fatigued Review of Systems Comments: 12 points reviewed as noted, otherwise negative. Objective Last 24 Hrs of Vital Signs/I&O Vital Signs Date Time Temp Pulse Resp B/P B/P Pulse O2 O2 Flow FiO2 Mean Ox Delivery Rate 08/08 1136 76 93 08/08 0921 94 BIPAP 70% 08/08 0805 97 08/08 0659 87 90 08/08 0649 81 91 08/08 0400 92 BIPAP 60% 08/08 0323 76 91 08/08 0021 92 95 08/08 0018 61 96 08/08 0000 93 BIPAP 65% 08/08 0000 98.8 90 28 100/70 93 BIPAP 65% 08/07 2250 65 91 08/07 2120 90 Nasal 80% Cannula 08/07 2000 93 Nasal 80% Cannula 08/07 1656 93 Nasal 70% Cannula 08/07 1600 95 Nasal 70% Cannula 08/07 1600 98.2 71 20 108/48 95 Nasal 70% Cannula 08/07 1300 94 Nasal 70% Cannula 08/07 1200 Nasal 60% Cannula 08/07 1200 98.7 74 22 110/60 92 Nasal 60% Cannula Intake & Output 08/08 1600 08/08 0800 08/08 0000 Intake Total 680 410 Output Total 780 250 Balance -100 160 Intake, IV 100 30 Intake, Tube 320 240 Feeding Intake, Tube 260 140 Irrigant Number 0 Bowel Movements Output, Urine 780 250 Physical Exam Other Physical Findings: GEN: elderly thin and frail HEENT: NC/AT,, anicteric sclera NECK: Supple, no MARIAA CARD: S1, S2 present, no m/g/r PULM: BS present, few b/l rhonchi ABD: Soft, NT NEURO: Awake and alert, answering questions appropriately EXT: no cyanosis or pedal edema Skin: blood blisters/extensive ecchymoses LE's Results Last 24 Hours of Lab Results: Laboratory Tests 08/08 0350 Chemistry Sodium (137 - 145 mmol/L) 140 Potassium (3.5 - 5.1 mmol/L) 2.7 *L Chloride (98 - 107 mmol/L) 93 L Carbon Dioxide (22 - 30 mmol/L) 37 H Anion Gap (5 - 16) 11 BUN (7 - 17 mg/dL) 32 H Creatinine (0.5 - 1.0 mg/dL) 0.8 Estimated GFR (>60 ml/min) > 60 Glucose (65 - 99 mg/dL) 132 H Calcium (8.4 - 10.2 mg/dL) 8.6 Phosphorus (2.5 - 4.5 mg/dL) 2.8 Magnesium (1.6 - 2.3 mg/dL) 1.7 Total Bilirubin (0.2 - 1.3 mg/dL) 0.6 AST (14 - 36 U/L) 24 ALT (9 - 52 U/L) 31 Albumin (3.5 - 5.0 g/dL) 3.0 L Coagulation PT (9.4 - 12.5 SEC) 12.8 H INR (0.90 - 1.19) 1.22 H APTT (25 - 37 SEC) 24 L Fibrinogen Activity (200 - 393 MG/DL) 394 H Hematology CBC w Diff MAN DIFF ORDERED WBC (4.8 - 10.8 /CUMM) 4.4 L RBC (4.20 - 5.40 /CUMM) 3.07 L Hgb (12.0 - 16.0 G/DL) 9.1 L Hct (37 - 47 %) 28.7 L MCV (81.0 - 99.0 FL) 93.3 MCH (27.0 - 31.0 PG) 29.6 MCHC (33.0 - 37.0 G/DL) 31.8 L RDW (11.5 - 14.5 %) 21.4 H Plt Count (130 - 400 /CUMM) 55 L MPV (7.4 - 10.4 FL) 9.6 Gran % (42.2 - 75.2 %) 27.3 L Lymphocytes % (20.5 - 51.1 %) 25.6 Monocytes % (1.7 - 9.3 %) 47.1 H Eosinophils % (0 - 5 %) 0 Basophils % (0.0 - 2.0 %) 0 Absolute Granulocytes (1.4 - 6.5 /CUMM) 1.2 L Segmented Neutrophils (42.2 - 75.2 %) 42 L Band Neutrophils (0.0 - 5.0 %) 9 H Absolute Lymphocytes (1.2 - 3.4 /CUMM) 1.1 L Lymphocytes (20.5 - 51.1 %) 34 Monocytes (1.7 - 9.3 %) 15 H Absolute Monocytes (0.10 - 0.60 /CUMM) 2.1 H Absolute Eosinophils (0.0 - 0.7 /CUMM) 0 Absolute Basophils (0.0 - 0.2 /CUMM) 0 Platelet Estimate (ADEQUATE) DECREASED Hypochromic-Microcytic 1+ Anisocytosis 2+ Stomatocytes 1+ Elliptocytes FEW Last 24 Hours of Red Results: SPEC #: [id number] BRANDEN: 08/07/17 STATUS: COLB RECD: - SUBM DR: Isabel PROCTOR, Randy SOURCE: URINE ROUT ENTR: 08/07/[address]: Lauryn PROCTOR,[place] SPDESC: URINE KARTHIK Blackwell MD,Marck ORDERED: URINE CULTURE Procedure Result URINE CULTURE PENDING RECEIPT Recent Imaging Studies: DUS 08/07 There is no Marquez's cyst. IMPRESSION: Normal triplex scan without evidence of deep venous thrombosis involving the lower extremities. DICTATED BY: Ramon Bermeo MD DATE/TIME DICTATED:08/07/171613 ASSOCIATE PROFESSOR OF SOCIOLOGY:CHUY DATE/TIME TRANSCRIBED:08/07/171613 Assessment/Plan ID Impression: 86-year-old woman with a history of lupus (maintained on prednisone 10 mg daily) , COPD, hypertension and myelodysplastic syndrome, and bri esophagitis was admitted 07/29 with sepsis. Persistent cough; CXR 08/05 revealing worsening right lower lobe pneumonia. Most recent sputum culture from 08/04 growing Ps. aeruginosa pansensitive. Thrombocytopenia (DIC). Transaminitis Suggestion: 1. Aspiration precautions; pulm toilet. 2. Trend CBC; WBC trending up; L shift w/ 9% bands; F/U UA/UC results. 3. Cont Ceftazidime 1 gm iv q 8 h in am in order to complete total 14 d treatment (D#08/17).
[2017-08-08 13:41] LABS: HEPARIN INDUCED PLATELET AB NEGATIVE (NEGATIVE)
[2017-08-08 16:00] VITALS: BP 120/60
--- NOTE | 2017-08-08 17:55 | PN- Cardiology ---
Subjective Subjective: * Breathing remains difficult with shortness of breath requiring BIPAP. * sinus rhythm * potassium is 2.7 * HIT antibiodies negative with platelets remaining low at 55K Objective Vital Signs and I&Os Vital Signs Date Time Temp Pulse Resp B/P B/P Pulse O2 O2 Flow FiO2 Mean Ox Delivery Rate 08/08 1647 Nasal 8L Cannula 08/08 1637 75 94 08/08 1425 79 97 08/08 1136 76 93 08/08 0921 94 BIPAP 70% 08/08 0805 97 08/08 08 96 BIPAP 80% 08/08 08 98.6 80 20 120/60 97 BIPAP 80% 08/08 0659 87 90 08/08 0649 81 91 08/08 0400 92 BIPAP 60% 08/08 0323 76 91 08/08 0021 92 95 08/08 0018 61 96 08/08 0000 93 BIPAP 65% 08/08 0000 98.8 90 28 100/70 93 BIPAP 65% 08/07 2250 65 91 08/07 2120 90 Nasal 80% Cannula 08/07 1999 93 Nasal 80% Cannula Intake & Output 08/08 1600 08/08 0800 / 0000 08/07 1600 08/07 0800 08/07 0000 Intake Total 680 410 392 528 200 Output Total 780 250 650 145 140 Balance -100 160 -258 383 60 Intake, IV 100 30 92 300 200 Intake, Tube 320 240 160 88 Feeding Intake, Tube 260 140 140 140 Irrigant Number 0 0 Bowel Movements Output, Urine 780 250 650 145 140 Patient 92 lb 3 oz Weight Weight Bed scale Measurement Method Physical Exam: General: WD/WN male in NAD; alert and oriented x 3 Neck: no JVD, no carotid bruit Heart: RRR w/o murmur Lungs: decreased air movement bilaterally Extremities; no edema with venous stasis changes, legs are ecchymotic Assessment/Plan Assessment/Plan * This patient had an elevated troponin which was initially attributed to demand ischemia. Her enzyme are now trending down and she is pain free. She is not a reasonable and safe candidate for acute intervention due to her breathing issues , inability to lie flat and very low platelets with bleeding. There is no acute injury current on her ECG and she is pain free. We will continue medical therapy with NTG paste 1 inch Q6 hrs. Ensure adequate oxygenation. Monitor on telemetry in the CCU. We will hold off on a statin since her hepatic transaminases are elevated at present. * This patient's blood pressue is borderline. Her prior hypotension is may have been related to sepsis, volume loss in the setting of bleeding or adrenal insufficiency due to being on prolonged steroid therapy. Continue antibiotic therapy as recommended by Dr. Olvera and continue steroids. * Replete potassium. * Diurese with Lasix 40mg IV BID or as tolerated by blood pressure. Continue telemetry? Yes
--- NOTE | 2017-08-08 22:35 | RADIOLOGY REPORT ---
EXAMINATION: XR PORTABLE CHEST CLINICAL INFORMATION: 86-year-old female patient with dyspnea. COMPARISON: Portable chest x-rays from 07/02/2017 through 08/06/2017. CT the chest on 07/30/[address] of the chest on 07/31/2017. TECHNIQUE: Portable AP semierect view of the chest was obtained. FINDINGS/IMPRESSION: Certainly there has been improvement in the degree of interstitial pulmonary edema of the right lower lobe since August 04. However, there is persistent dense left lower lobe consolidation which is thought to represent atelectasis and/or pneumonia. The small pleural effusions are difficult to evaluate in this semierect portable chest x-ray. Severe emphysematous disease involves both upper lobes. The tip of the feeding tube is in the stomach.
[2017-08-09] VITALS: BP 100/60
--- NOTE | 2017-08-09 07:34 | PN- Hematology ---
Subjective Subjective: Her breathing is about the same. She feels unwell. She denies any pain. She has not had any bleeding. Review of Systems: Limited due to Bipap Constitutional: Denies: chills, fever. Cardiovascular: Denies: chest pain. Gastrointestinal: Denies: abdominal pain. Musculoskeletal: Denies: back pain. Skin: Reports: dryness. Hematologic/Endocrine: Reports: bruising. Denies: bleeding. All Other Systems: Reviewed and Negative Objective Vital Signs and I&Os Vital Signs Date Time Temp Pulse Resp B/P B/P Pulse O2 O2 Flow FiO2 Mean Ox Delivery Rate 08/09 0527 75 91 08/09 0400 93 BIPAP 60% 08/09 0333 81 91 08/09 0029 73 94 08/09 0000 96 BIPAP 60% 08/09 0000 96.0 83 18 100/60 96 BIPAP 60% 08/08 2235 93 90 08/08 2047 98.3 08/08 2000 90 BIPAP 60% 08/08 1935 96 92 08/08 1647 Nasal 8L Cannula 08/08 1637 75 94 08/08 1600 98.6 80 18 120/60 95 BIPAP 60% 08/08 1600 95 BIPAP 60% 08/08 1425 79 97 08/08 1200 93 BIPAP 70% 08/08 1136 76 93 08/08 0921 94 BIPAP 70% 08/08 0805 97 08/08 0800 96 BIPAP 80% 08/08 0800 98.6 80 20 120/60 97 BIPAP 80% Intake & Output 08/09 0800 08/09 0000 08/08 1600 08/08 0800 08/08 0000 08/07 1600 Intake Total 220 195 680 410 392 Output Total 130 750 780 250 650 Balance 90 -555 -100 160 -258 Intake, IV 195 100 30 92 Intake, Tube 80 320 240 160 Feeding Intake, Tube 140 260 140 140 Irrigant Number 0 Bowel Movements Output, Urine 130 750 780 250 650 Patient 36.741 kg Weight Weight Bed scale Measurement Method Physical Exam: General Appearance: no apparent distress, alert, awake, comfortable Head: atraumatic, normal appearance Ears, Nose, Throat: dry blood in nares, NG tube in place Respiratory: chest non-tender, no respiratory distress, quiet respiration, BiPAP in place Cardiovascular: regular rate/rhythm Abdomen: normal bowel sounds, soft, non-tender : rincon in place Extremities: no edema Neurologic/Psychiatric: awake, alert, oriented x 3 Skin: diffuse ecchymoses and hyperpigmentation in the extremities, worse in the lower extremity Current Medications: Current Medications Sig/Zeb Start time Last Medication Dose Route Stop Time Status Admin Acetaminophen 1,000 MG ONCE ONE 08/08 2044 DC 08/08 N/A 1 UNIT IV 08/08 Albuterol Sulfate 3 ML BID 08/01 2199 AC 08/08 INH 2015 Ceftazidime 1,000 MG Q8 08/07 220 AC 08/09 IV 0557 Furosemide 40 MG 7:30 AM, & 4:30 PM 08/07 0730 AC 08/08 IV 1711 Glycerin 2 SPRAY Q2P PRN 08/07 0830 AC 08/07 PO 1200 Hydrocortisone 40 MG DAILY 08/04 1000 AC 08/08 Sodium Succinate IV 1014 Magnesium Sulfate 1 GM ONCE ONE 08/08 0645 DC 08/08 Dextrose/Water 100 ML IV 08/08 1044 1000 Nitroglycerin 1 GM Q6 08/02 2359 AC 08/09 TOP 0557 Pantoprazole Sodium 40 MG DAILY 07/30 2200 AC 08/08 IV 1015 Potassium Chloride 20 MEQ BID 08/08 1800 AC 08/08 PO 2202 Potassium Chloride 10 MEQ Q1H 08/08 1800 DC 08/08 IV 08/08 1901 2202 Potassium Chloride 10 MEQ Q1H 08/08 0945 DC 08/08 IV 08/08 1046 1400 Sodium Chloride 2 SPRAY Q4P PRN 07/31 1715 AC 07/31 KRYSTYNA 1735 Results Last 24 Hours of Lab Results: Laboratory Tests 08/08 1830 Chemistry Sodium (137 - 145 mmol/L) 141 Potassium (3.5 - 5.1 mmol/L) 3.5 Chloride (98 - 107 mmol/L) 93 L Carbon Dioxide (22 - 30 mmol/L) 38 H Anion Gap (5 - 16) 11 BUN (7 - 17 mg/dL) 31 H Creatinine (0.5 - 1.0 mg/dL) 0.8 Estimated GFR (>60 ml/min) > 60 Glucose (65 - 99 mg/dL) 129 H Calcium (8.4 - 10.2 mg/dL) 9.0 Phosphorus (2.5 - 4.5 mg/dL) 4.1 Magnesium (1.6 - 2.3 mg/dL) 2.1 Total Bilirubin (0.2 - 1.3 mg/dL) 0.7 AST (14 - 36 U/L) 24 ALT (9 - 52 U/L) 29 Albumin (3.5 - 5.0 g/dL) 3.4 L Recent Imaging Studies: CXR 08/08/2017: Certainly there has been improvement in the degree of interstitial pulmonary edema of the right lower lobe since August 04. However, there is persistent dense left lower lobe consolidation which is thought to represent atelectasis and/or pneumonia. The small pleural effusions are difficult to evaluate in this semierect portable chest x-ray. Severe emphysematous disease involves both upper lobes. The tip of the feeding tube is in the stomach. Assessment/Plan Hematology Assessment/Recommendations: Ms. Aguirre is an 86-year-old female with myelodysplastic syndrome and chronic anemia requiring blood transfusions, lupus on hydroxychloroquine and prednisone, GERD, COPD, and hypertension who was brought to the hospital for further evaluation of diarrhea and weakness. She was noted to have severe anemia and hypoxia respiratory failure. Respiratory status remains the same with improving CXR. She continues on ceftazidime. Hematologic parameters demonstrated some improvement yesterday. DIC parameters are stable. This does not have to be check every day now. Limited blood draw on her as much as possible. Pancytopenia: -follow up CBC today Sepsis of pulmonary origin: -antibiotics as per primary/ID DIC: -may recheck with any worsening hematologic parameters or bleeding -transfuse with cryo if fibrinogen <100 Please call [phone] with any questions or concerns. Problem List: 1. Pneumonia 2. Respiratory failure 3. Thrombocytopenia 4. Chronic anemia 5. MDS (myelodysplastic syndrome)
[2017-08-09 08:00] VITALS: BP 108/60
--- NOTE | 2017-08-09 09:21 | PN- Resident CRCU ---
Umair Hall 08/09/17 0921: Subjective HPI/CRCU Issues: The patient was seen and examined this morning. On Bipap. She is complaining of SOB and that her BIPAP mask is bothering her.Denies any headache, n/v, dizziness , lightheadedness, CP, abdominal pain, urinary symptoms. It was reported that she passed tissue overnight which was sent for pathology. Tube feeding rate was reduced. Was reported to have positive hemoccult this morning. BP and DE stable. Objective Vital Signs & I&O Last 8 Hrs of Vitals and I&O: Intake & Output 08/09 1600 Intake Total 329 Output Total 550 Balance -221 Intake, IV 130 Intake, Oral 0 Intake, Tube 169 Feeding Intake, Tube 30 Irrigant Number 2 Bowel Movements Output, Urine 550 Exam General Appearance: alert, awake, on BIPAP Other Physical Findings: Head: atraumatic, normal appearance, Left side JENY tube intact Other Physical Findings: Ears, Nose, Throat: normal ENT inspection Neck: normal inspection, supple Respiratory: diminished breath sounds bilaterally Cardiovascular: regular rate/rhythm Gastrointestinal: normal bowel sounds, soft, non-tender Extremities: no edema, extensive ecchymosis on lower extremities with tenderness to palpation Cranial Nerves: normal hearing, PERRL Current Medications: Current Medications Sig/Zeb Start time Last Medication Dose Route Stop Time Status Admin Acetaminophen 500 MG Q6H PRN 08/09 1245 AC N/A 1 UNIT IV Acetaminophen 1,000 MG ONCE ONE 08/08 2044 DC 08/08 N/A 1 UNIT IV 08/08 Albuterol Sulfate 3 ML BID 08/01 220 AC 08/09 INH 1016 Ceftazidime 1,000 MG Q8 08/07 2200 AC 08/09 IV 0557 Furosemide 40 MG 7:30 AM, & 4:30 PM 08/07 0730 AC 08/09 IV 1017 Glycerin 2 SPRAY Q2P PRN 08/07 0830 AC 08/07 PO 1200 Hydrocortisone 40 MG DAILY 08/04 1000 AC 08/09 Sodium Succinate IV 1017 Nitroglycerin 1 GM Q6 08/02 2359 AC 08/09 TOP 0557 Pantoprazole Sodium 40 MG DAILY 07/30 2200 AC 08/09 IV 1017 Potassium Chloride 20 MEQ BID 08/08 1800 AC 08/09 PO 1017 Potassium Chloride 10 MEQ Q1H 08/08 1800 DC 08/08 IV 08/08 1901 2202 Sodium Chloride 2 SPRAY Q4P PRN 07/31 1715 AC 07/31 KRYSTYNA 1735 Impression/Plan Impression/Problem List Impression: This is a 86 year old lady with past medical history significant for COPD, MDS, SLE, anemia seen for evaluation of diarrhea and weakness with "flu-like" symptoms found to have respiratory failure with sepsis and pneumonia requiring ICU admission. Assessment/plan: #Acute hypoxemic respiratory failure: * On BiPAP. * On tube feeding via JENY tube rate reduced. * On prednisone 10 mg daily, continue with equivalent of IV Solu-Cortef 40 mg daily, checked with pharmacy * IV Lasix 40 twice a day if blood pressure allows. * Repeat swallow evaluation #Bilateral lower extremity discoloration: * Doppler negative for DVTs. * Vascular insult appreciated. They recommend Asael bandage. * The patient has been refusing Asael bandage #Hypoglycemia: * No further episode of hypoglycemia so far #History of COPD: * TRC/nebs as needed * IV steroids as above #Sepsis: * Most likely respiratory source * Possible consolidation in the chest, likely pneumonia, suspect aspiration pneumonia * Sputum cultures growing pansensitive Pseudomonas. * Continue with ceftazidime 1 g TID per ID and pharmacy. #Elevated troponins * Troponin peaked, initially attributes it to demand ischemia given her comorbidities, she was started on IV heparin. * IV heparin was discontinued this given thrombocytopenia. * Follow cardiology recommendations #History of MDS/anemia * Initially DIC panel positive for very low Fibrinogen; repeat shows elevated fibrinogen. * Appreciate Heme/Onc recs * Will give FFP if active bleeding * Recheck DIC panel if there is any worsening of hematologic parameters or bleeding * Transfuse with cryo if fibrinogen<100 #History of Lupus: * On hydroxychloroquine and prednisone 10 mg daily at home. * Hydroxychloroquine is associated with leukopenia, thrombocytopenia and aplastic anemia along with hemolysis. Note that after discontinuing medication her counts seem to have significantly improved. * Continue to hold hydroxychloroquine * Continue steroids #Electrolytes abnormalities * Monitor electrolytes and replete accordingly * Noted to be hypokalemic to 3.9 this morning;c/w Klor via JENY tube * Monitor daily K level #Transaminitis-resolved * Unsure of etiology. Transamanitis on admission. Unsure if her coagulopathy is secondary to liver/DIC. ??fx of hydroxychloroquine. * Hydroxycholorquine stopped during hospital stay; transaminitis has resolved #Deficated intestinal tissue: * Follow pathology results #Hemoccult positive: * H&H stable * Not on any AC or Anti-plt * Monitor closely #DVT PPX: * ALPS given worsening of thrombocytopenia #Code status: * Full code Problem List: 1. Respiratory failure 2. Pneumonia 3. Thrombocytopenia Pain Ratin Tomorrow's Labs & Rationales: CBC to monitor H&H ICU bundle to monitor electrolytes Plan DVT/Prophylaxis: Marck Ca MD 08/09/17 1146: Attending MD Review Statement Attending Sign Off Attending Cosign Statement: I have: examined this patient, reviewed aval EMR data, personally reviewd images, discussd w/resident/PA/FINANCIAL REP, discussed mgmt plan w/monique, discussed mgmt plan w/CM, discussed mgmt plan w/pt, agreed w/resident/PA/FINANCIAL REP, amended to note. Other Findings: Impression 86 year old woman hx of MDS/Anemia acute hypoxemic respiratory failure sepsis - likely urinary vs GI source troponinemia Plan Respiratory -titrate as needed to keep spo2 >88% ID -f/u ID recs regarding abx -RLL pna with aspiration the most likely cause CVS -cardiology consulted -f/u recommendations Heme -f/u hematology recs -vascular sx input regarding leg tenderness and discoloration appreciated Metabolic -electrolyte improved -taper steroids Alimentary -aspiration precautions -ko feed, tube feeds Neuro -alert Full Code TTS 35 min
[2017-08-09 09:26] LABS: HEMATOCRIT 29.6 % (37-47); MEAN CORPUSCULAR HGB 29.7 PG (27.0-31.0); MEAN CORPUSCULAR HGB CONC 31.8 G/DL (33.0-37.0); MEAN CORPUSCULAR VOLUME 93.4 FL (81.0-99.0); MEAN PLATELET VOLUME 9.4 FL (7.4-10.4); PLATELET COUNT 76 /CUMM (130-400); RBC DISTRIBUTION WIDTH 21.4 % (11.5-14.5); RED BLOOD CELL CT 3.17 /CUMM (4.20-5.40); WHITE BLOOD CELL COUNT 2.9 /CUMM (4.8-10.8)
[2017-08-09 09:59] LABS: PT 12.9 SEC (9.4-12.5); PTT 25 SEC (25-37)
--- NOTE | 2017-08-09 12:33 | PN- Infect Dx ---
Subjective Subjective: No fever. Fatigued. Poor iv access Review of Systems Comments: 12 points reviewed as noted, otherwise negative. Objective Last 24 Hrs of Vital Signs/I&O Vital Signs Date Time Temp Pulse Resp B/P B/P Pulse O2 O2 Flow FiO2 Mean Ox Delivery Rate 08/09 1021 89 BIPAP 60% 08/09 1021 93 88 08/09 0820 72 90 08/09 0800 97.0 79 20 108/60 91 BIPAP 60% 08/09 0527 75 91 08/09 0400 93 BIPAP 60% 08/09 0333 81 91 08/09 0029 73 94 03 0000 96 BIPAP 60% 08/09 0000 96.0 83 18 100/60 96 BIPAP 60% 08/08 2235 93 90 08/08 2047 98.3 08/09 1999 92 BIPAP 60% 08/08 2000 90 BIPAP 60% 08/08 1935 96 92 08/08 1647 Nasal 8L Cannula 08/08 1637 75 94 08/08 1600 98.6 80 18 120/60 95 BIPAP 60% 08/08 1600 95 BIPAP 60% 08/08 1425 79 97 Intake & Output 08/09 1600 08/09 0800 08/09 0000 Intake Total 220 636 Output Total 130 700 Balance 90 -64 Intake, IV 546 Intake, Oral 0 Intake, Tube 80 10 Feeding Intake, Tube 140 80 Irrigant Number 1 Bowel Movements Output, Urine 130 700 Patient 81 lb Weight Weight Bed scale Measurement Method Physical Exam Other Physical Findings: GEN: elderly thin and frail requiring BiPAP HEENT: NC/AT,, anicteric sclera NECK: Supple, no MARIAA CARD: S1, S2 present, no m/g/r PULM: BS present, few b/l rhonchi ABD: Soft, NT NEURO: Awake and alert, answering questions appropriately EXT: no cyanosis or pedal edema Skin: blood blisters/extensive ecchymoses LE's Results Last 24 Hours of Lab Results: Laboratory Tests 08/09 08/08 0745 1830 Chemistry Sodium (137 - 145 mmol/L) 147 H 141 Potassium (3.5 - 5.1 mmol/L) 3.9 3.5 Chloride (98 - 107 mmol/L) 100 93 L Carbon Dioxide (22 - 30 mmol/L) 36 H 38 H Anion Gap (5 - 16) 11 11 BUN (7 - 17 mg/dL) 35 H 31 H Creatinine (0.5 - 1.0 mg/dL) 0.9 0.8 Estimated GFR (>60 ml/min) 59 L > 60 Glucose (65 - 99 mg/dL) 98 129 H Calcium (8.4 - 10.2 mg/dL) 9.1 9.0 Phosphorus (2.5 - 4.5 mg/dL) 3.5 4.1 Magnesium (1.6 - 2.3 mg/dL) 2.2 2.1 Total Bilirubin (0.2 - 1.3 mg/dL) 0.7 0.7 AST (14 - 36 U/L) 25 24 ALT (9 - 52 U/L) 28 29 Albumin (3.5 - 5.0 g/dL) 3.4 L 3.4 L Coagulation PT (9.4 - 12.5 SEC) 12.9 H INR (0.90 - 1.19) 1.23 H APTT (25 - 37 SEC) 25 Fibrinogen Activity (200 - 393 MG/DL) 434 H Hematology CBC w Diff MAN DIFF ORDERED WBC (4.8 - 10.8 /CUMM) 2.9 L RBC (4.20 - 5.40 /CUMM) 3.17 L Hgb (12.0 - 16.0 G/DL) 9.4 L Hct (37 - 47 %) 29.6 L MCV (81.0 - 99.0 FL) 93.4 MCH (27.0 - 31.0 PG) 29.7 MCHC (33.0 - 37.0 G/DL) 31.8 L RDW (11.5 - 14.5 %) 21.4 H Plt Count (130 - 400 /CUMM) 76 L MPV (7.4 - 10.4 FL) 9.4 Segmented Neutrophils (42.2 - 75.2 %) 28 L Band Neutrophils (0.0 - 5.0 %) 2 Lymphocytes (20.5 - 51.1 %) 66 H Monocytes (1.7 - 9.3 %) 4 Platelet Estimate (ADEQUATE) DECREASED Anisocytosis 1+ Last 24 Hours of Red Results: Reviewed Recent Imaging Studies: CXR FINDINGS/IMPRESSION: Certainly there has been improvement in the degree of interstitial pulmonary edema of the right lower lobe since August 04. However, there is persistent dense left lower lobe consolidation which is thought to represent atelectasis and/or pneumonia. The small pleural effusions are difficult to evaluate in this semierect portable chest x-ray. Severe emphysematous disease involves both upper lobes. The tip of the feeding tube is in the stomach. DICTATED BY: Damon Herron MD DATE/TIME DICTATED:08/08/172225 WAGON WASHER:CHUY DATE/TIME TRANSCRIBED:08/08/172225 Assessment/Plan ID Impression: 86-year-old woman with a history of lupus (maintained on prednisone 10 mg daily) , COPD, hypertension and myelodysplastic syndrome, and bri esophagitis was admitted 07/29 with sepsis. Persistent cough; CXR 3/1revealing dense LLL pneumonia. Most recent sputum culture from 08/04 growing Ps. aeruginosa pansensitive. Thrombocytopenia (DIC); PLT CT trending up. Suggestion: 1. Aspiration precautions; pulm toilet. 2. Trend CBC; persistent leukopenia. 3. Cont Ceftazidime 1 gm iv q 8 h (dose adjusted per pharmacy) in am in order to complete total 14 d treatment (D#/). 4. Consider double lumen PICC (for iv abx/labs).
[2017-08-09 16:00] VITALS: BP 112/70
--- NOTE | 2017-08-09 20:35 | PN- Cardiology ---
Subjective Subjective: * Patient continues to require breathing support with BIPAP despite aggressive diuresis. * sinus rhythm * potassium is 3.9 and sodium 147 * platelets 76K Objective Vital Signs and I&Os Vital Signs Date Time Temp Pulse Resp B/P B/P Pulse O2 O2 Flow FiO2 Mean Ox Delivery Rate / 1600 99 BIPAP 70% 08/09 1600 96.8 92 18 112/70 92 BIPAP 70% 08/09 1550 88 98 / 1411 98 03/ 1210 88 03/ 1200 89 BIPAP 30% 08/09 1021 89 BIPAP 60% 08/09 1021 93 88 / 0820 72 90 / 0800 97.0 79 20 108/60 91 BIPAP 60% 08/09 0800 94 BIPAP 60% 08/09 0527 75 91 / 0400 93 BIPAP 60% 08/09 0333 81 91 / 0029 73 94 03/ 0000 96 BIPAP 60% / 0000 96.0 83 18 100/60 96 BIPAP 60% 08/08 2235 93 90 08/08 2047 98.3 Intake & Output 08/09 1600 /02 0800 03/02 0000 / 1600 08/08 0800 03/ 0000 Intake Total 329 220 636 195 680 410 Output Total 550 130 700 750 780 250 Balance -221 90 -64 -555 -100 160 Intake, IV 130 546 195 100 30 Intake, Oral 0 0 Intake, Tube 169 80 10 320 240 Feeding Intake, Tube 30 140 80 260 140 Irrigant Number 2 1 0 Bowel Movements Output, Urine 550 130 700 750 780 250 Patient 81 lb Weight Weight Bed scale Measurement Method Physical Exam: General: WD/WN male in NAD; alert and oriented x 3 Neck: no JVD, no carotid bruit Heart: RRR w/o murmur Lungs: decreased air movement bilaterally Extremities; no edema with venous stasis changes, legs are ecchymotic Assessment/Plan Assessment/Plan * This patient had an elevated troponin which was initially attributed to demand ischemia. Her enzyme are now trending down and she is pain free. She is not a reasonable and safe candidate for acute intervention due to her breathing issues , inability to lie flat and very low platelets with bleeding. There is no acute injury current on her ECG and she is pain free. We will continue medical therapy with NTG paste 1 inch Q6 hrs. Ensure adequate oxygenation. Monitor on telemetry in the CCU. LFT's are improved. Begin Lipitor 20mg daily. * This patient's blood pressue was borderline but is now improved. Her prior hypotension is may have been related to sepsis, volume loss in the setting of bleeding or adrenal insufficiency due to being on prolonged steroid therapy. Continue antibiotic therapy as recommended by infectious disease and continue steroids. * The patient has not improved with empiric diuretic therapy. I don't think she has heart failure. Patient is now becoming dry. Hold Lasix for now. Continue telemetry? Yes
[2017-08-10] VITALS: BP 122/70
--- NOTE | 2017-08-10 01:39 | RADIOLOGY REPORT ---
EXAMINATION: XR PORTABLE CHEST CLINICAL INFORMATION: Vomiting. Acute hypoxic respiratory failure. COMPARISON: 08/08/2017 TECHNIQUE: Portable frontal view of the chest was obtained. FINDINGS: Dobbhoff tube extends into the stomach. Cardiac leads overlie the chest. The lungs are well expanded. There is increased hazy opacity at the right midlung with persistent right basilar hazy opacity. No pleural effusion or pneumothorax. Chronic appearing interstitial change consistent with known emphysema. The cardiomediastinal silhouette is unchanged, with a calcified aorta. IMPRESSION: Known emphysema. Increased hazy opacity at the right midlung with persistent right basilar opacity. Findings could represent aspiration.
[2017-08-10 05:20] LABS: MEAN CORPUSCULAR HGB 29.7 PG (27.0-31.0); MEAN CORPUSCULAR HGB CONC 31.5 G/DL (33.0-37.0); MEAN CORPUSCULAR VOLUME 94.3 FL (81.0-99.0); MEAN PLATELET VOLUME 9.4 FL (7.4-10.4); PLATELET COUNT 85 /CUMM (130-400); RBC DISTRIBUTION WIDTH 21.5 % (11.5-14.5); RED BLOOD CELL CT 3.18 /CUMM (4.20-5.40); WHITE BLOOD CELL COUNT 2.7 /CUMM (4.8-10.8)
[2017-08-10 08:00] VITALS: BP 120/60
--- NOTE | 2017-08-10 08:11 | PN- Resident CRCU ---
LeninjovanyFili 08/10/17 0810: Subjective HPI/CRCU Issues: Acute hypoxic respiratory failure Demand Ischemia MDS of chronic anemia Transaminitis 24 Hour Events: Apparently earlier this morning patient vomited while on BiPAP. feeds were stopped and she was placed on high flow. Seen and examined patient this morning. On interview patient states that she does not feel too well overall. Afebrile overnight, total intake 17,423 total output 70,470 Currently saturating 98% on nonrebreather at 60% Objective Vital Signs & I&O Last 8 Hrs of Vitals and I&O: Intake & Output 08/10 1600 08/10 0800 08/10 0000 Intake Total 150 369 Output Total 100 300 Balance 50 69 Intake, IV 130 30 Intake, Oral 0 0 Intake, Other 170 Intake, Tube 20 169 Feeding Number 1 1 Bowel Movements Output, Urine 100 300 Laboratory Tests 08/10 0458 Chemistry Sodium (137 - 145 mmol/L) 149 H Potassium (3.5 - 5.1 mmol/L) 4.2 Chloride (98 - 107 mmol/L) 99 Carbon Dioxide (22 - 30 mmol/L) 38 H Anion Gap (5 - 16) 13 BUN (7 - 17 mg/dL) 50 H Creatinine (0.5 - 1.0 mg/dL) 1.0 Estimated GFR (>60 ml/min) 52 L Glucose (65 - 99 mg/dL) 120 H Calcium (8.4 - 10.2 mg/dL) 9.2 Phosphorus (2.5 - 4.5 mg/dL) 4.8 H Magnesium (1.6 - 2.3 mg/dL) 2.3 Total Bilirubin (0.2 - 1.3 mg/dL) 0.6 AST (14 - 36 U/L) 25 ALT (9 - 52 U/L) 27 Albumin (3.5 - 5.0 g/dL) 3.3 L Hematology CBC w Diff MAN DIFF ORDERED WBC (4.8 - 10.8 /CUMM) 2.7 L RBC (4.20 - 5.40 /CUMM) 3.18 L Hgb (12.0 - 16.0 G/DL) 9.4 L Hct (37 - 47 %) 30.0 L MCV (81.0 - 99.0 FL) 94.3 MCH (27.0 - 31.0 PG) 29.7 MCHC (33.0 - 37.0 G/DL) 31.5 L RDW (11.5 - 14.5 %) 21.5 H Plt Count (130 - 400 /CUMM) 85 L MPV (7.4 - 10.4 FL) 9.4 Segmented Neutrophils (42.2 - 75.2 %) 29 L Lymphocytes (20.5 - 51.1 %) 65 H Monocytes (1.7 - 9.3 %) 6 Nucleated RBCs (0.0 - 0.0 /100WBC) 1 H Platelet Estimate (ADEQUATE) DECREASED Polychromasia 1+ Hypochromic-Microcytic 2+ Poikilocytosis 1+ Anisocytosis 2+ Microcytic Cells 1+ Macrocytic Cells 2+ Target Cells 1+ Exam General Appearance: awake, cachetic, lethargic, mild distress Head: atraumatic Neck: supple Respiratory: quiet respiration Cardiovascular: regular rate/rhythm, edema Gastrointestinal: normal bowel sounds, soft Extremities: no edema Skin: cyanosis (fingertips), ecchymosis Skin Temp/Moisture Exam: Cool/Dry Nutrition Nutrition: tube feeding Current Medications: Current Medications Sig/Zeb Start time Last Medication Dose Route Stop Time Status Admin Acetaminophen 500 MG Q6H PRN 08/09 1245 AC 08/10 N/A 1 UNIT IV 0500 Albuterol Sulfate 3 ML BID 08/01 220 AC 08/09 INH 2100 Ceftazidime 1,000 MG Q8 08/07 2200 AC 08/10 IV 0554 Furosemide 40 MG 7:30 AM, & 4:30 PM 08/07 0730 DC 08/09 IV 1606 Glycerin 2 SPRAY Q2P PRN 08/07 0830 AC 08/07 PO 1200 Hydrocortisone 40 MG DAILY 08/04 1000 AC 08/10 Sodium Succinate IV 0946 Nitroglycerin 1 GM Q6 08/02 2359 AC 08/10 TOP 0554 Ondansetron HCl 4 MG ONCE ONE 08/10 0100 DC 08/10 IV 08/10 0101 0101 Pantoprazole Sodium 40 MG DAILY 07/30 2200 AC 08/10 IV 0945 Potassium Chloride 20 MEQ BID 08/08 1800 AC 08/09 PO 2155 Sodium Chloride 2 SPRAY Q4P PRN 07/31 1715 AC 07/31 KRYSTYNA 1735 CXR Findings: SERVICE DATE: 08/10/17 EXAM TYPE: RAD - XRY-PORTABLE CHEST XRAY FINDINGS: Dobbhoff tube extends into the stomach. Cardiac leads overlie the chest. The lungs are well expanded. There is increased hazy opacity at the right midlung with persistent right basilar hazy opacity. No pleural effusion or pneumothorax. Chronic appearing interstitial change consistent with known emphysema. The cardiomediastinal silhouette is unchanged, with a calcified aorta. IMPRESSION: Known emphysema. Increased hazy opacity at the right midlung with persistent right basilar opacity. Findings could represent aspiration. Impression/Plan Impression/Problem List Impression: 86 year old lady with past medical history significant for COPD, history of lupus (maintained on prednisone 10 mg daily), COPD, hypertension and myelodysplastic syndrome, and bri esophagitis was admitted 07/29 for sepsis. Assessment/plan: #Acute hypoxemic respiratory failure: * currently on high flow, after her episode of vomiting repeat chest x-ray showed worsening right opacity. * Restarted tube feeding via JENY tube rate reduced * On prednisone 10 mg daily, continue with equivalent of IV Solu-Cortef 40 mg daily, checked with pharmacy * Hold off IV Lasix 40 twice she is currently euvolemic * familly was updated regarding morning events * On examination bluish discoloration of fingertips central cyanosis versus #History of COPD: * TRC/nebs as needed * IV steroids as above #Sepsis: * Possible consolidation in the chest, likely pneumonia, suspect aspiration pneumonia * Sputum cultures growing pansensitive Pseudomonas. * ID on board appreciate recommendations * Continue with ceftazidime 1 g TID per ID (D#11/17) * Repeat sputum culture #Bilateral lower extremity discoloration: * Doppler negative for DVTs. * Vascular insult appreciated. They recommend Asael bandage. * The patient has been refusing Asael bandage #Elevated troponins * Troponin peaked, initially attributes it to demand ischemia given her comorbidities, she was started on IV heparin. * IV heparin was discontinued this given thrombocytopenia. * Follow cardiology recommendations #History of MDS/anemia * Initially DIC panel positive for very low Fibrinogen; repeat shows elevated fibrinogen. * Appreciate Heme/Onc recs * Will give FFP if active bleeding * Recheck DIC panel if there is any worsening of hematologic parameters or bleeding * Transfuse with cryo if fibrinogen<100 #History of Lupus: * On hydroxychloroquine and prednisone 10 mg daily at home. * Hydroxychloroquine is associated with leukopenia, thrombocytopenia and aplastic anemia along with hemolysis. Note that after discontinuing medication her counts seem to have significantly improved. * Continue to hold hydroxychloroquine * Continue steroids #Electrolytes abnormalities * Monitor electrolytes and replete accordingly * Potassium to 4.2 this morning #Deficated intestinal tissue: * Follow pathology results #Hemoccult positive: * H&H stable * Not on any AC or Anti-plt * Monitor closely #Malnutriton low lenny score #DVT PPX: * ALPS given worsening of thrombocytopenia #Code status: * Full code Problem List: 1. HTN (hypertension) 2. Elevated troponin 3. Sepsis 4. Respiratory failure Pain Ratin Tomorrow's Labs & Rationales: cbc/icu panel Plan DVT/Prophylaxis: Marck Ca MD 08/10/17 0931: Attending MD Review Statement Attending Sign Off Attending Cosign Statement: I have: examined this patient, reviewed avalbl EMR data, personally reviewd images, discussd w/resident/PA/[employer]ER [employer]F [employer], discussed mgmt plan w/monique, discussed mgmt plan w/CM, discussed mgmt plan w/pt, agreed w/resident/PA/F[employer]ER R[employer]F NET, amended to note. Other Findings: Impression 86 year old woman hx of MDS/Anemia acute hypoxemic respiratory failure sepsis - likely urinary vs GI source troponinemia Plan Respiratory -titrate as needed to keep spo2 >88% ID -f/u ID recs regarding abx -RLL pna with aspiration the most likely cause CVS -cardiology consulted -f/u recommendations Heme -f/u hematology recs -vascular sx input regarding leg tenderness and discoloration appreciated Metabolic -electrolyte improved -taper steroids Alimentary -aspiration precautions -ko feed, tube feeds Neuro -alert Full Code TTS 35 min
--- NOTE | 2017-08-10 11:22 | PN- Infect Dx ---
Subjective Subjective: No fever; persistent SOB and weakness. Vomited. Review of Systems Comments: 12 points reviewed as noted, otherwise negative. Objective Last 24 Hrs of Vital Signs/I&O Vital Signs Date Time Temp Pulse Resp B/P B/P Pulse O2 O2 Flow FiO2 Mean Ox Delivery Rate 08/11 799 98.6 74 18 120/60 96 Part 60% ReBreather 08/10 0800 97 Part 60% ReBreather 08/10 0400 96 Part 60% ReBreather 08/10 0018 98 93 08/10 0000 93 BIPAP 55% 08/10 0000 97.9 95 27 122/70 93 BIPAP 55% 08/09 2222 106 92 08/09 2100 93 BIPAP 55% 08/10 1999 103 93 08/09 2000 92 BIPAP 55% 08/09 1600 99 BIPAP 70% 08/09 1600 96.8 92 18 112/70 92 BIPAP 70% 08/09 1550 88 98 08/09 1411 98 08/09 1210 88 08/09 1200 89 BIPAP 30% Intake & Output 08/10 1600 08/10 0800 08/10 0000 Intake Total 150 369 Output Total 100 300 Balance 50 69 Intake, IV 130 30 Intake, Oral 0 0 Intake, Other 170 Intake, Tube 20 169 Feeding Number 1 1 Bowel Movements Output, Urine 100 300 Physical Exam Other Physical Findings: GEN: elderly thin and frail requiring BiPAP HEENT: NC/AT,, anicteric sclera NECK: Supple, no MARIAA CARD: S1, S2 present, no m/g/r PULM: BS present, few b/l rhonchi ABD: Soft, NT NEURO: Awake and alert, answering questions appropriately EXT: no cyanosis or pedal edema Skin: blood blisters/extensive ecchymoses LE's Results Last 24 Hours of Lab Results: Laboratory Tests 08/10 0458 Chemistry Sodium (137 - 145 mmol/L) 149 H Potassium (3.5 - 5.1 mmol/L) 4.2 Chloride (98 - 107 mmol/L) 99 Carbon Dioxide (22 - 30 mmol/L) 38 H Anion Gap (5 - 16) 13 BUN (7 - 17 mg/dL) 50 H Creatinine (0.5 - 1.0 mg/dL) 1.0 Estimated GFR (>60 ml/min) 52 L Glucose (65 - 99 mg/dL) 120 H Calcium (8.4 - 10.2 mg/dL) 9.2 Phosphorus (2.5 - 4.5 mg/dL) 4.8 H Magnesium (1.6 - 2.3 mg/dL) 2.3 Total Bilirubin (0.2 - 1.3 mg/dL) 0.6 AST (14 - 36 U/L) 25 ALT (9 - 52 U/L) 27 Albumin (3.5 - 5.0 g/dL) 3.3 L Hematology CBC w Diff MAN DIFF ORDERED WBC (4.8 - 10.8 /CUMM) 2.7 L RBC (4.20 - 5.40 /CUMM) 3.18 L Hgb (12.0 - 16.0 G/DL) 9.4 L Hct (37 - 47 %) 30.0 L MCV (81.0 - 99.0 FL) 94.3 MCH (27.0 - 31.0 PG) 29.7 MCHC (33.0 - 37.0 G/DL) 31.5 L RDW (11.5 - 14.5 %) 21.5 H Plt Count (130 - 400 /CUMM) 85 L MPV (7.4 - 10.4 FL) 9.4 Segmented Neutrophils (42.2 - 75.2 %) 29 L Lymphocytes (20.5 - 51.1 %) 65 H Monocytes (1.7 - 9.3 %) 6 Nucleated RBCs (0.0 - 0.0 /100WBC) 1 H Platelet Estimate (ADEQUATE) DECREASED Polychromasia 1+ Hypochromic-Microcytic 2+ Poikilocytosis 1+ Anisocytosis 2+ Microcytic Cells 1+ Macrocytic Cells 2+ Target Cells 1+ Last 24 Hours of Red Results: Reviewed Recent Imaging Studies: CXR 08/10 IMPRESSION: Known emphysema. Increased hazy opacity at the right midlung with persistent right basilar opacity. Findings could represent aspiration. DICTATED BY: Radha PROCTOR,Bolivar DATE/TIME DICTATED:08/10/17133 SUPERVISORY FORESTER:CHUY DATE/TIME TRANSCRIBED:08/10/17133 Assessment/Plan ID Impression: 86-year-old woman with a history of lupus (maintained on prednisone 10 mg daily) , COPD, hypertension and myelodysplastic syndrome, and bri esophagitis was admitted 07/29 with sepsis. Persistent cough; CXR 3/3revealing RLL pneumonia; suspicious for ongoing aspiration. Most recent sputum culture from 08/04 growing Ps. aeruginosa pansensitive. Thrombocytopenia (DIC); PLT CT trending up. Persistent leukopenia Suggestion: 1. Aspiration precautions; pulm toilet; can gastric residuals be checked (? Kaofeed in place). 2. Trend CBC. If productive cough repeat sputum cx 3. Cont Ceftazidime 1 gm iv q 8 h (dose adjusted per pharmacy) in am in order to complete total 14 d treatment (D#10/17). 4. Consider double lumen PICC (for iv abx/labs).
[2017-08-10 16:00] VITALS: BP 102/48
--- NOTE | 2017-08-10 22:52 | Event Note ---
Event Note Event Note: S: MD called as pt refusing bipap B:Pt admitted in ICU for acute hypoxic resp failure and sepsis A/R: Called the daughter and informed her that the patient is requesting her to come into the hospital. I told the daughter it would be a good idea for the two to discuss the patient's goals of care as she is the POA. I did inform the daughter that the patient appears to be confused but does know she is in the hosp. Patient unabel to state which hosp or the year. Patient currently on high flow with O2 sats @ 94%. Family came in to discuss goals of care with patient. The family has decided DNR /DNI.
[2017-08-11] VITALS: BP 118/60
[2017-08-11 05:18] LABS: ABSOLUTE BASOPHIL COUNT 0 /CUMM (0.0-0.2); ABSOLUTE EOSINOPHIL COUNT 0 /CUMM (0.0-0.7); ABSOLUTE GRANULOCYTE CT 0.3 /CUMM (1.4-6.5); ABSOLUTE MONOCYTE COUNT 0.5 /CUMM (0.10-0.60); BASOPHIL % 0 % (0.0-2.0); EOSINOPHIL % 0 % (0-5); MEAN CORPUSCULAR HGB 29.1 PG (27.0-31.0); MEAN CORPUSCULAR HGB CONC 30.8 G/DL (33.0-37.0); MEAN CORPUSCULAR VOLUME 94.7 FL (81.0-99.0); MEAN PLATELET VOLUME 10.3 FL (7.4-10.4); RED BLOOD CELL CT 3.07 /CUMM (4.20-5.40); WHITE BLOOD CELL COUNT 2.9 /CUMM (4.8-10.8)
[2017-08-11 05:39] LABS: GRANULOCYTE % 11.5 % (42.2-75.2); PLATELET COUNT 50 /CUMM (130-400)
[2017-08-11 08:00] VITALS: BP 118/60
--- NOTE | 2017-08-11 09:36 | PN- Resident CRCU ---
Yakov PROCTOR,Prabha 08/11/17 0935: Subjective HPI/CRCU Issues: Hypoxic respiratory failure MDS with chronic anemia Sepsis Transamanitis Emphysema 96.7-98.6/72-104/16-28/(107/60)-(132/59) On 60% non rebreather mask satting 97% TIn 98071/ TOut 98565 24 Hour Events: Had a long discussion with pt and with family this morning about goals of care and expectations. They have decided to promote quality of life over quantity of life. Pt herself verbalized that all she wanted was a sip of water. Overnight she had become DNR/DNI and is currently thinking about comfort measures. She would like to speak with all her children and will get back to us later in the day. Objective Vital Signs & I&O Last 8 Hrs of Vitals and I&O: Intake & Output 08/11 1600 Intake Total 431 Output Total 150 Balance 281 Intake, IV 170 Intake, Oral 0 Intake, Other 80 Intake, Tube 81 Feeding Intake, Tube 100 Irrigant Number 0 Bowel Movements Output, Urine 150 Exam General Appearance: alert, awake, mild distress Head: atraumatic Ears, Nose, Throat: on bipap Neck: normal inspection, supple, full range of motion Respiratory: normal breath sounds, crackles, rhonchi, respiratory distress Cardiovascular: regular rate/rhythm Gastrointestinal: soft, non-tender Extremities: significant ecchymoses in bilat LE Current Medications: Current Medications Sig/Zeb Start time Last Medication Dose Route Stop Time Status Admin Acetaminophen 1,000 MG .STK-MED ONE 08/11 2207 DC IV 08/10 220 Acetaminophen 500 MG Q6H PRN 08/09 1245 08/11 N/A 1 UNIT IV 0934 Albuterol Sulfate 3 ML BID 08/01 220 AC 08/11 INH 0818 Ceftazidime 1,000 MG Q8 08/07 2200 AC 08/11 IV 1418 Glycerin 2 SPRAY Q2P PRN 08/07 0830 AC 08/07 PO 1200 Hydrocortisone 40 MG DAILY 08/04 1000 AC 08/11 Sodium Succinate IV 0935 Melatonin 5 MG ONCE ONE 08/11 0045 DC 08/11 PO 08/11 0046 0101 Morphine Sulfate 1 MG ONCE ONE 08/11 1415 DC 08/11 IV 08/11 1416 1417 Nitroglycerin 1 GM Q6 08/02 2359 AC 08/11 TOP 1200 Pantoprazole Sodium 40 MG DAILY 07/30 2200 AC 08/11 IV 0935 Potassium Chloride 20 MEQ BID 08/08 1800 AC 08/11 PO 0935 Sodium Chloride 2 SPRAY Q4P PRN 07/31 1715 AC 07/31 KRYSTYNA 1735 Impression/Plan Impression/Problem List Impression: This is a 86-year-old lady with past medical history significant for myelodysplastic syndrome and chronic anemia requiring blood transfusions, lupus on hydroxychloroquine and prednisone, GERD, hx of COPD, and hypertension who was brought to the hospital for further evaluation of diarrhea and weakness. She was foung to be in sepsis with profound anemia. Initially she was hypotensive but responded well to fluids and adjunctive theraphy. Her progress has been hindered by worsening respiratory distress requiring hi-flow O2 and repeat failed swallow evals. Last night pt deteriorated on bipap and she and family wished to become DNR/DNI. PLAN: Respiratory: Acute hypoxic respiratory failure: Pt wishes to avoid bipap as she states that it significantly distresses her. She is currently on nasal pendant.She does have sig hx smoking with evidence of emphysema in CTA. Dimer markedly elevated but no evidence of PE on CTA. There are some infiltrates on CT with minor pleural effusion. Regarding advanced directives pt wishes to be more comfortable but remain DNR/ DNI tonight. Family would like to speak to hospice in AM to evaluate all their options. In the interim, pt would like Morphine PRN for pain and be able to drink water/have ice chips though she is known to aspirate. She verbalized understanding of the consequences includng possibility of worsening respratory distress. Family was present and aware of her wishes and are onboard. * PRN diuresis. * HOB elevated * NEBS prn * Bipap PRN if pt tolerates w/goals sats >88% * tube feeds were decreased when pt ws on bipap to decrease risk of aspiration. If pt tolerates will attempt to increase. History of COPD: * Nebs * pt is on solucortef for her relative AI. Infectious disease: Sepsis: Given that most pertinent finding on CT Chest abdomen and pelvis was possible consolidation in chest most likely source of infection is PNA with pseudomonas in cx though she is growing pansensitive ecoli in urine. Pt does not have any urinary symptoms at this time. * Monitor berger cultures * Continue Ceftaz per ID * Appreciate ID consult * Follow-up Sputum cx Cardiovascular: Elevated troponin: Resolved * Appreciate cardiology recommendations * When pt can tolerate PO will start statin * Careful monitoring of H/H. Heme oncology: MDS with chronic anemia: Today HB 8.9. stable. * Initially DIC panel positive for very low Fibrinogen; repeat shows elevated fibrinogen. * Appreciate Heme/Onc recs * Will give FFP if active bleeding * Monitor DIC panel History of lupus: Patient is on hydroxychloroquine and prednisone 10 mg daily at home for treatment of lupus. This medication is associated with leukopenia, thrombocytopenia and aplastic anemia along with hemolysis. Note that after discontinuing medication her counts seem to have significantly improved. * Continue to hold hydroxychloroquine * Continue steroid Metabolic: Hypokalemia: * Replete Alimentary: Failed swallow eval: * As such currently nothing by mouth * Very low rate of IVF had to be held due to c/o volume overload Transamanitis: Unsure of etiology. Transamanitis in 100s since admission. Unsure if her coagulopathy is secondary to liver/DIC. ??fx of hydroxychloroquine. Nephro: * No issues DVT prophylaxis ALPS for c/o bleeding GI ppx on board [place] in place DNR/DNI NPO Problem List: 1. Pneumonia 2. Respiratory failure 3. Thrombocytopenia 4. Chronic anemia 5. Elevated troponin Pain Ratin Tomorrow's Labs & Rationales: icu cbc Plan DVT/Prophylaxis: mechanical Marck Blackwell MD 08/11/17 1021: Attending MD Review Statement Attending Sign Off Attending Cosign Statement: I have: examined this patient, reviewed [facility] EMR data, personally reviewd images, discussd w/resident/PA/FLAT EXAMINER, discussed mgmt plan w/monique, discussed mgmt plan w/CM, discussed mgmt plan w/pt, agreed w/resident/PA/FLAT EXAMINER, amended to note. Other Findings: Impression 86 year old woman hx of MDS/Anemia acute hypoxemic respiratory failure sepsis - likely urinary vs GI source troponinemia Plan Respiratory -titrate as needed to keep spo2 >88% ID -f/u ID recommendations - cont abx -RML/RLL pna with aspiration the most likely cause - pseudomonas in sputum cx CVS -cardiology consulted -f/u recommendations Heme -f/u hematology recs -vascular sx input regarding leg tenderness and discoloration appreciated Metabolic -electrolyte improved -taper steroids Alimentary -aspiration precautions -ko feed, tube feeds Neuro -alert Code status changed to DNR/DNI TTS 35 min
--- NOTE | 2017-08-11 13:21 | PN- Infect Dx ---
Subjective Subjective: No cee; persistent cough/SOB. Review of Systems Comments: 12 points reviewed as noted, otherwise negative. Objective Last 24 Hrs of Vital Signs/I&O Vital Signs Date Time Temp Pulse Resp B/P B/P Pulse O2 O2 Flow FiO2 Mean Ox Delivery Rate 08/11 1200 95 Part 60% ReBreather 08/11 0852 95 Part 60% ReBreather 08/11 0800 96.7 77 18 118/60 94 Part 60% ReBreather 08/11 0800 94 Part 60% ReBreather 08/11 0400 98 Non 100% ReBreather 08/11 0015 76 96 08/11 0000 96 Non 100% ReBreather 08/11 0000 96.7 86 20 118/60 92 Non 100% ReBreather 08/10 2229 94 92 08/10 2116 90 Aerosol 60% Mask 08/10 2000 94 Aerosol 60% Mask 08/10 1600 96.8 81 24 102/48 97 Aerosol 60% Mask 08/10 1600 94 Aerosol 60% Mask Intake & Output 08/11 1600 08/11 0800 08/11 0000 Intake Total 249 230 Output Total 125 150 Balance 124 80 Intake, IV 130 0 Intake, Oral 0 Intake, Tube 59 60 Feeding Intake, Tube 60 170 Irrigant Number 0 0 Bowel Movements Output, Urine 125 150 Patient 81 lb 6 oz Weight Weight Bed scale Measurement Method Physical Exam Other Physical Findings: GEN: elderly WF thin and frail HEENT: NC/AT,, anicteric sclera NECK: Supple, no MARIAA CARD: S1, S2 present, no m/g/r PULM: BS present, few b/l rhonchi ABD: Soft, NT NEURO: Awake and alert, answering questions appropriately EXT: no cyanosis or pedal edema Skin: blood blisters/extensive ecchymoses LE's Results Last 24 Hours of Lab Results: Laboratory Tests 08/11 0442 Chemistry Sodium (137 - 145 mmol/L) 148 H Potassium (3.5 - 5.1 mmol/L) 4.2 Chloride (98 - 107 mmol/L) 103 Carbon Dioxide (22 - 30 mmol/L) 36 H Anion Gap (5 - 16) 9 BUN (7 - 17 mg/dL) 50 H Creatinine (0.5 - 1.0 mg/dL) 0.7 Estimated GFR (>60 ml/min) > 60 Glucose (65 - 99 mg/dL) 97 Calcium (8.4 - 10.2 mg/dL) 9.1 Phosphorus (2.5 - 4.5 mg/dL) 4.1 Magnesium (1.6 - 2.3 mg/dL) 2.4 H Total Bilirubin (0.2 - 1.3 mg/dL) 0.8 AST (14 - 36 U/L) 28 ALT (9 - 52 U/L) 25 Albumin (3.5 - 5.0 g/dL) 3.1 L Hematology CBC w Diff NO MAN DIFF REQ WBC (4.8 - 10.8 /CUMM) 2.9 L RBC (4.20 - 5.40 /CUMM) 3.07 L Hgb (12.0 - 16.0 G/DL) 8.9 L Hct (37 - 47 %) 29.0 L MCV (81.0 - 99.0 FL) 94.7 MCH (27.0 - 31.0 PG) 29.1 MCHC (33.0 - 37.0 G/DL) 30.8 L RDW (11.5 - 14.5 %) 21.0 H Plt Count (130 - 400 /CUMM) 50 L MPV (7.4 - 10.4 FL) 10.3 Gran % (42.2 - 75.2 %) 11.5 L Lymphocytes % (20.5 - 51.1 %) 71.2 H Monocytes % (1.7 - 9.3 %) 17.3 H Eosinophils % (0 - 5 %) 0 Basophils % (0.0 - 2.0 %) 0 Absolute Granulocytes (1.4 - 6.5 /CUMM) 0.3 L Absolute Lymphocytes (1.2 - 3.4 /CUMM) 2.0 Absolute Monocytes (0.10 - 0.60 /CUMM) 0.5 Absolute Eosinophils (0.0 - 0.7 /CUMM) 0 Absolute Basophils (0.0 - 0.2 /CUMM) 0 Last 24 Hours of Red Results: SPEC #: [id number] BRANDEN: 08/10/17 STATUS: COLB RECD: - SUBM DR: Wagner PROCTOR, Fili SOURCE: LOWER RESP ENTR: 08/10/[address]: Lauryn PROCTOR,[place] SPDESC: SPUTUM RosalvaMarck ledezma MD ORDERED: LOWER RESPIRATO Procedure Result LOWER RESPIRATO PENDING RECEIPT Recent Imaging Studies: CXR 08/10 reviewed. Assessment/Plan ID Impression: 86-year-old woman with a history of lupus (maintained on prednisone 10 mg daily) , COPD, hypertension and myelodysplastic syndrome, and bri esophagitis was admitted 07/29 with sepsis. Persistent cough; CXR 3 revealing worsening RML/RLL pneumonia; due to aspiration. Most recent sputum culture from 08/04 growing Ps. aeruginosa pansensitive. Thrombocytopenia (DIC); PLT CT trending down again. Persistent leukopenia Suggestion: 1. Aspiration precautions 2. Trend CBC. If productive cough repeat sputum cx 3. Cont Ceftazidime 1 gm iv q 8 h (dose adjusted per pharmacy) in am in order to complete total 14 d treatment (D#11/17). 4. Goal of care per team.
[2017-08-11 16:00] VITALS: BP 112/51
[2017-08-11 22:00] VITALS: BP 90/47
[2017-08-12 05:45] LABS: ABSOLUTE BASOPHIL COUNT 0 /CUMM (0.0-0.2); ABSOLUTE EOSINOPHIL COUNT 0 /CUMM (0.0-0.7); ABSOLUTE MONOCYTE COUNT 0 /CUMM (0.10-0.60)
[2017-08-12 06:00] LABS: ABSOLUTE LYMPH COUNT 1.8 /CUMM (1.2-3.4); BASOPHIL % 0.2 % (0.0-2.0); EOSINOPHIL % 0.1 % (0-5); HEMATOCRIT 27.5 % (37-47); MEAN CORPUSCULAR HGB 29.6 PG (27.0-31.0); MEAN CORPUSCULAR HGB CONC 31.4 G/DL (33.0-37.0); MEAN CORPUSCULAR VOLUME 94.2 FL (81.0-99.0); MEAN PLATELET VOLUME 9.1 FL (7.4-10.4); PLATELET COUNT 65 /CUMM (130-400); RBC DISTRIBUTION WIDTH 20.9 % (11.5-14.5); RED BLOOD CELL CT 2.93 /CUMM (4.20-5.40)
[2017-08-12 06:13] LABS: WHITE BLOOD CELL COUNT 4.9 /CUMM (4.8-10.8)
--- NOTE | 2017-08-12 07:13 | PN- Resident CRCU ---
LeninjovanySarahmode 08/12/17 0713: Subjective HPI/CRCU Issues: Acute hypoxic respiratory failure Demand Ischemia MDS chronic anemia Transaminitis 24 Hour Events: Patient was agitated overnight she wanted to have ice chips, was given Ativan. Goals of care were addressed yesterday, code status changed to DNR/DNI Continues to feel unwell Objective Vital Signs & I&O Last 8 Hrs of Vitals and I&O: Intake & Output 08/12 1600 08/12 0800 08/12 0000 Intake Total 300 90 Output Total 145 Balance 155 90 Intake, IV 120 10 Intake, Other 180 Intake, Tube 80 Feeding Output, Urine 145 Laboratory Tests 08/12 0520 Chemistry Sodium (137 - 145 mmol/L) 135 L Potassium (3.5 - 5.1 mmol/L) 3.0 L Chloride (98 - 107 mmol/L) 98 Carbon Dioxide (22 - 30 mmol/L) 28 Anion Gap (5 - 16) 9 BUN (7 - 17 mg/dL) 33 H Creatinine (0.5 - 1.0 mg/dL) 0.6 Estimated GFR (>60 ml/min) > 60 Glucose (65 - 99 mg/dL) 71 Calcium (8.4 - 10.2 mg/dL) 7.8 L Phosphorus (2.5 - 4.5 mg/dL) 2.7 Magnesium (1.6 - 2.3 mg/dL) 1.8 Total Bilirubin (0.2 - 1.3 mg/dL) 0.5 AST (14 - 36 U/L) 18 ALT (9 - 52 U/L) 22 Albumin (3.5 - 5.0 g/dL) 2.3 L Hematology CBC w Diff MAN DIFF ORDERED WBC (4.8 - 10.8 /CUMM) 4.9 RBC (4.20 - 5.40 /CUMM) 2.93 L Hgb (12.0 - 16.0 G/DL) 8.6 L Hct (37 - 47 %) 27.5 L MCV (81.0 - 99.0 FL) 94.2 MCH (27.0 - 31.0 PG) 29.6 MCHC (33.0 - 37.0 G/DL) 31.4 L RDW (11.5 - 14.5 %) 20.9 H Plt Count (130 - 400 /CUMM) 65 L MPV (7.4 - 10.4 FL) 9.1 Gran % (42.2 - 75.2 %) 62.0 Lymphocytes % (20.5 - 51.1 %) 37.0 Monocytes % (1.7 - 9.3 %) 0.7 L Eosinophils % (0 - 5 %) 0.1 Basophils % (0.0 - 2.0 %) 0.2 Absolute Granulocytes (1.4 - 6.5 /CUMM) 3.0 Segmented Neutrophils (42.2 - 75.2 %) 43 Band Neutrophils (0.0 - 5.0 %) 7 H Absolute Lymphocytes (1.2 - 3.4 /CUMM) 1.8 Lymphocytes (20.5 - 51.1 %) 34 Monocytes (1.7 - 9.3 %) 16 H Absolute Monocytes (0.10 - 0.60 /CUMM) 0 L Absolute Eosinophils (0.0 - 0.7 /CUMM) 0 Absolute Basophils (0.0 - 0.2 /CUMM) 0 Platelet Estimate (ADEQUATE) DECREASED Hypochromic-Microcytic 1+ Anisocytosis 1+ Target Cells 1+ Stomatocytes 1+ Exam General Appearance: cachetic, moderate distress Respiratory: decreased breath sounds Cardiovascular: regular rate/rhythm Gastrointestinal: normal bowel sounds Extremities: no edema Nutrition Nutrition: tube feeding Current Medications: Current Medications Sig/Zeb Start time Last Medication Dose Route Stop Time Status Admin Acetaminophen 500 MG Q6H PRN 08/09 1245 DC 08/12 N/A 1 UNIT IV 0300 Albuterol Sulfate 3 ML BID 08/01 2199 AC 08/12 INH 0938 Alprazolam 0.5 MG ONCE ONE 08/11 230 DC 08/11 PO 08/11 2301 2307 Ceftazidime 1,000 MG Q8 08/07 2199 AC 08/12 IV 0527 Glycerin 2 SPRAY Q2P PRN 08/07 0830 AC 08/07 PO 1200 Hydrocortisone 40 MG DAILY 08/04 1000 AC 08/11 Sodium Succinate IV 0935 Melatonin 5 MG ONCE ONE 08/11 2229 DC 08/11 PO 08/11 2230 222 Morphine Sulfate 1 MG ONCE ONE 08/11 2114 DC 08/11 IV 08/11 Morphine Sulfate 4 MG .STK-MED ONE 08/11 2110 DC IM 08/12 2111 Morphine Sulfate 1 MG ONCE ONE 08/11 1415 DC 03/04 IV 08/11 1416 1417 Morphine Sulfate 4 MG .STK-MED ONE 08/11 1415 DC IM 08/11 1416 Nitroglycerin 1 GM Q6 08/02 2359 AC 08/11 TOP 1846 Pantoprazole Sodium 40 MG DAILY 07/30 2200 AC 08/11 IV 0935 Potassium Chloride 40 MEQ ONCE ONE 08/12 0900 DC PO 08/12 0901 Potassium Chloride 20 MEQ BID 08/08 1800 AC 08/11 PO 2125 Sodium Chloride 2 SPRAY Q4P PRN 07/31 1715 AC 07/31 KRYSTYNA 1735 Impression/Plan Impression/Problem List Impression: 86 year old lady with past medical history significant for COPD, history of lupus (maintained on prednisone 10 mg daily), COPD, hypertension and myelodysplastic syndrome, and bri esophagitis was admitted 07/29 for sepsis. Assessment/plan: #Acute hypoxemic respiratory failure: * on Non rebreather * Restarted tube feeding via JENY tube rate reduced * On prednisone 10 mg daily, continue with equivalent of IV Solu-Cortef 40 mg daily * Hold off IV Lasix 40 she is currently euvolemic * On examination bluish discoloration of fingertips central cyanosis #History of COPD: * TRC/nebs as needed * IV steroids as above #Sepsis: afebrile overnight, no leukocytosis * Possible consolidation in the chest, likely pneumonia, suspect aspiration pneumonia * Sputum cultures growing pansensitive Pseudomonas. * ID on board appreciate recommendations * Continue with ceftazidime 1 g decreased to q12 per ID (D#11/17) #Bilateral lower extremity discoloration: * Doppler negative for DVTs. * Vascular insult appreciated. They recommend Asael bandage. * The patient has been refusing Asael bandage #Elevated troponins * Troponin peaked, attributed to demand ischemia given her comorbidities * Follow cardiology recommendations * electrolytes repleted #History of MDS/anemia * Initially DIC panel positive for very low Fibrinogen; repeat shows elevated fibrinogen. * Appreciate Heme/Onc recs * Will give FFP if active bleeding * Recheck DIC panel if there is any worsening of hematologic parameters or bleeding * Transfuse with cryo if fibrinogen<100 last checked 08/09/17 434 #History of Lupus: * On hydroxychloroquine and prednisone 10 mg daily at home. * Hydroxychloroquine is associated with leukopenia, thrombocytopenia and aplastic anemia along with hemolysis. Note that after discontinuing medication her counts seem to have significantly improved. * Continue to hold hydroxychloroquine * Continue steroids #Electrolytes abnormalities * Monitor electrolytes and replete accordingly #Hemoccult positive: * H&H stable * Not on any AC or Anti-plt * Monitor closely #Malnutriton low lenny score #DVT PPX: * ALPS given worsening of thrombocytopenia #Code status: * Full code * poor prognosis Problem List: 1. Pneumonia 2. Respiratory failure Pain Ratin Tomorrow's Labs & Rationales: none required Plan DVT/Prophylaxis: Marck Ca MD 08/12/17 0930: Attending MD Review Statement Attending Sign Off Attending Cosign Statement: I have: examined this patient, reviewed al EMR data, personally reviewd images, discussd w/resident/PA/BLAST FURNACE OPERATOR, discussed mgmt plan w/monique, discussed mgmt plan w/CM, discussed mgmt plan w/pt, agreed w/resident/PA/BLAST FURNACE OPERATOR, amended to note. Other Findings: Impression 86 year old woman hx of MDS/Anemia acute hypoxemic respiratory failure sepsis - likely urinary vs GI source troponinemia Plan Respiratory -titrate as needed to keep spo2 >88% ID -f/u ID recommendations - cont abx -RML/RLL pna with aspiration the most likely cause - pseudomonas in sputum cx CVS -cardiology consulted -f/u recommendations Heme -f/u hematology recs -vascular sx input regarding leg tenderness and discoloration appreciated Metabolic -electrolyte improved -taper steroids Alimentary -aspiration precautions -ko feed, tube feeds Neuro -alert Code status changed to DNR/DNI TTS 35 min Continuing to discuss goals of care with family
[2017-08-12 08:00] VITALS: BP 110/50
--- NOTE | 2017-08-12 10:11 | PN- Infect Dx ---
Subjective Subjective: Afebrile on steroids. She does not offer any complaints. Objective Last 24 Hrs of Vital Signs/I&O Vital Signs Date Time Temp Pulse Resp B/P B/P Pulse O2 O2 Flow FiO2 Mean Ox Delivery Rate 08/12 0945 93 Non 100% ReBreather 08/12 08 93 Non 100% ReBreather 08/12 08 97.0 84 20 110/50 93 Non 100% ReBreather 08/12 0400 96 Non 100% ReBreather 08/12 0026 98 03 0000 92 Non 100% ReBreather 08/11 2200 98.3 96 36 90/47 90 Non 100% ReBreather 08/11 2033 90 Part 60% ReBreather 08/11 2000 88 Part 60% ReBreather 08/11 1600 96.8 73 19 112/51 96 Part 60% ReBreather 08/11 1600 95 Part 60% ReBreather 08/11 1200 95 Part 60% ReBreather Intake & Output 08/12 1600 08/12 0800 08/12 0000 Intake Total 300 90 Output Total 145 Balance 155 90 Intake, IV 120 10 Intake, Other 180 Intake, Tube 80 Feeding Output, Urine 145 Physical Exam Other Physical Findings: She appears lethargic but arousable, on a nonrebreather, in no acute distress Lungs diffuse crackles Heart regular rhythm with no murmur Abdomen is soft, nontender with positive bowel sounds Extremities bilateral lower extremity ecchymoses unchanged Muir catheter remains in place Results Last 24 Hours of Lab Results: Laboratory Tests 08/12 05 Chemistry Sodium (137 - 145 mmol/L) 135 L Potassium (3.5 - 5.1 mmol/L) 3.0 L Chloride (98 - 107 mmol/L) 98 Carbon Dioxide (22 - 30 mmol/L) 28 Anion Gap (5 - 16) 9 BUN (7 - 17 mg/dL) 33 H Creatinine (0.5 - 1.0 mg/dL) 0.6 Estimated GFR (>60 ml/min) > 60 Glucose (65 - 99 mg/dL) 71 Calcium (8.4 - 10.2 mg/dL) 7.8 L Phosphorus (2.5 - 4.5 mg/dL) 2.7 Magnesium (1.6 - 2.3 mg/dL) 1.8 Total Bilirubin (0.2 - 1.3 mg/dL) 0.5 AST (14 - 36 U/L) 18 ALT (9 - 52 U/L) 22 Albumin (3.5 - 5.0 g/dL) 2.3 L Hematology CBC w Diff MAN DIFF ORDERED WBC (4.8 - 10.8 /CUMM) 4.9 RBC (4.20 - 5.40 /CUMM) 2.93 L Hgb (12.0 - 16.0 G/DL) 8.6 L Hct (37 - 47 %) 27.5 L MCV (81.0 - 99.0 FL) 94.2 MCH (27.0 - 31.0 PG) 29.6 MCHC (33.0 - 37.0 G/DL) 31.4 L RDW (11.5 - 14.5 %) 20.9 H Plt Count (130 - 400 /CUMM) 65 L MPV (7.4 - 10.4 FL) 9.1 Gran % (42.2 - 75.2 %) 62.0 Lymphocytes % (20.5 - 51.1 %) 37.0 Monocytes % (1.7 - 9.3 %) 0.7 L Eosinophils % (0 - 5 %) 0.1 Basophils % (0.0 - 2.0 %) 0.2 Absolute Granulocytes (1.4 - 6.5 /CUMM) 3.0 Segmented Neutrophils (42.2 - 75.2 %) 43 Band Neutrophils (0.0 - 5.0 %) 7 H Absolute Lymphocytes (1.2 - 3.4 /CUMM) 1.8 Lymphocytes (20.5 - 51.1 %) 34 Monocytes (1.7 - 9.3 %) 16 H Absolute Monocytes (0.10 - 0.60 /CUMM) 0 L Absolute Eosinophils (0.0 - 0.7 /CUMM) 0 Absolute Basophils (0.0 - 0.2 /CUMM) 0 Platelet Estimate (ADEQUATE) DECREASED Hypochromic-Microcytic 1+ Anisocytosis 1+ Target Cells 1+ Stomatocytes 1+ Last 24 Hours of Red Results: No recent cultures Assessment/Plan ID Impression: Overall status poor, with worsening respiratory status, now on Ceftazidime, Day 5 of treatment for possible Pseudomonas pneumonia, with a chest x-ray 8 days ago revealing new airspace opacities in the right lower lobe, left lower lobe and right upper lobes. She remains afebrile (on steroids) with white blood cell count normal, though, with her underlying myelodysplastic syndrome, this parameter is not likely to be useful. Suggestion: 1. Continue Ceftazidime but decrease to 1 g IV every 12 hours
[2017-08-12 16:00] VITALS: BP 108/56
--- NOTE | 2017-08-12 19:48 | PN- Cardiology ---
Subjective Subjective: * Patient is off BIPAP and is breathing comfortably without shortness of breath. No chest discomfort. * On supplemental oxygen with normal O2 saturation while on oxygen. * Ceftazidime continuing for possible pseudomonal pneumonia. * sinus rhythm * potassium is 3.0 * Platelets 65K Objective Vital Signs and I&Os Vital Signs Date Time Temp Pulse Resp B/P B/P Pulse O2 O2 Flow FiO2 Mean Ox Delivery Rate 08/13 1599 97.7 82 18 108/56 97 Non 100% ReBreather 08/12 1600 96 Non 100% ReBreather 08/12 1448 95 Non 100% ReBreather 08/12 1200 97 Non 100% ReBreather 08/12 0945 93 Non 100% ReBreather 08/12 0800 93 Non 100% ReBreather 08/12 0800 97.0 84 20 110/50 93 Non 100% ReBreather 08/12 0400 96 Non 100% ReBreather 08/12 0026 98 03/05 0000 92 Non 100% ReBreather 08/11 2200 98.3 96 36 90/47 90 Non 100% ReBreather 08/11 2032 90 Part 60% ReBreather 08/12 1999 88 Part 60% ReBreather Intake & Output 08/12 1600 08/12 0800 03/ 0000 08/11 1600 08/11 0800 08/11 0000 Intake Total 140 300 90 431 249 230 Output Total 150 145 150 125 150 Balance -10 155 90 281 124 80 Intake, IV 120 10 170 130 0 Intake, Oral 0 0 Intake, Other 70 180 80 Intake, Tube 70 80 81 59 60 Feeding Intake, Tube 100 60 170 Irrigant Number 0 0 0 Bowel Movements Output, Urine 150 145 150 125 150 Patient 81 lb 6 oz Weight Weight Bed scale Measurement Method Physical Exam: General: WD/WN male in NAD; alert and oriented x 3 Neck: no JVD, no carotid bruit Heart: RRR w/o murmur Lungs: decreased air movement bilaterally Extremities; no edema with venous stasis changes, legs are ecchymotic Assessment/Plan Assessment/Plan * This patient had an elevated troponin which was initially attributed to demand ischemia. Her enzyme have trended down and she is pain free. She is not a reasonable and safe candidate for acute intervention due to her breathing issues , inability to lie flat and very low platelets with bleeding. There is no acute injury current on her ECG and she is pain free. We will continue medical therapy with NTG paste 1 inch Q6 hrs. Ensure adequate oxygenation. Monitor on telemetry in the CCU. Begin Lipitor 20mg daily. * This patient's blood pressue was borderline but is now improved. Her prior hypotension may have been related to sepsis, volume loss in the setting of bleeding or adrenal insufficiency due to being on prolonged steroid therapy. Continue antibiotic therapy as recommended by infectious disease and continue steroids. Consider weaning steroids. * The patient did not improved with empiric diuretic therapy. I don't think she has heart failure. No Lasix. Continue telemetry? Yes
[2017-08-13] VITALS: BP 96/44
[2017-08-13 05:27] LABS: HEMATOCRIT 24.8 % (37-47); MEAN CORPUSCULAR HGB CONC 31.8 G/DL (33.0-37.0); MEAN CORPUSCULAR VOLUME 94.2 FL (81.0-99.0); MEAN PLATELET VOLUME 10.2 FL (7.4-10.4); PLATELET COUNT 51 /CUMM (130-400); RED BLOOD CELL CT 2.63 /CUMM (4.20-5.40); WHITE BLOOD CELL COUNT 4.2 /CUMM (4.8-10.8)
--- NOTE | 2017-08-13 07:50 | PN- Resident CRCU ---
LeninlazarogildaFili 08/13/17 0750: Subjective HPI/CRCU Issues: HPI/CRCU Issues: Acute hypoxic respiratory failure Demand Ischemia MDS chronic anemia Transaminitis 24 Hour Events: no overnight events reported. Patient did not want to be placed on bipap Objective Vital Signs & I&O Last 8 Hrs of Vitals and I&O: Intake & Output 08/13 1600 08/13 0800 08/13 0000 Intake Total 142 186 Output Total 70 140 Balance 72 46 Intake, Tube 92 76 Feeding Intake, Tube 50 110 Irrigant Output, Urine 70 140 Laboratory Tests 08/13 0440 Chemistry Sodium (137 - 145 mmol/L) 147 H Potassium (3.5 - 5.1 mmol/L) 4.4 Chloride (98 - 107 mmol/L) 108 H Carbon Dioxide (22 - 30 mmol/L) 31 H Anion Gap (5 - 16) 8 BUN (7 - 17 mg/dL) 30 H Creatinine (0.5 - 1.0 mg/dL) 0.8 Estimated GFR (>60 ml/min) > 60 Glucose (65 - 99 mg/dL) 78 Calcium (8.4 - 10.2 mg/dL) 9.6 Phosphorus (2.5 - 4.5 mg/dL) 3.0 Magnesium (1.6 - 2.3 mg/dL) 2.2 Total Bilirubin (0.2 - 1.3 mg/dL) 0.6 AST (14 - 36 U/L) 24 ALT (9 - 52 U/L) 22 Albumin (3.5 - 5.0 g/dL) 2.7 L Hematology CBC w Diff MAN DIFF ORDERED WBC (4.8 - 10.8 /CUMM) 4.2 L RBC (4.20 - 5.40 /CUMM) 2.63 L Hgb (12.0 - 16.0 G/DL) 7.9 L Hct (37 - 47 %) 24.8 L MCV (81.0 - 99.0 FL) 94.2 MCH (27.0 - 31.0 PG) 30.0 MCHC (33.0 - 37.0 G/DL) 31.8 L RDW (11.5 - 14.5 %) 21.0 H Plt Count (130 - 400 /CUMM) 51 L MPV (7.4 - 10.4 FL) 10.2 Segmented Neutrophils (42.2 - 75.2 %) 47 Band Neutrophils (0.0 - 5.0 %) 2 Lymphocytes (20.5 - 51.1 %) 39 Monocytes (1.7 - 9.3 %) 12 H Platelet Estimate (ADEQUATE) DECREASED Polychromasia 1+ Hypochromic-Microcytic 1+ Poikilocytosis 1+ Ovalocytes 1+ Other Body Source Fld Total RBCs Counted (%) 100 Exam General Appearance: cachetic, moderate distress Respiratory: quiet respiration, rhonchi Cardiovascular: regular rate/rhythm Extremities: no edema Current Medications: Current Medications Sig/Zeb Start time Last Medication Dose Route Stop Time Status Admin Albuterol Sulfate 3 ML Q4-PRN PRN 08/12 1715 AC INH Atorvastatin Calcium 20 MG 1700 08/13 1700 CAN PO Ceftazidime 1,000 MG Q12 08/12 2200 DC 08/13 IV 1043 Glycerin 2 SPRAY Q2P PRN 08/07 0830 AC 08/07 PO 1200 Hydrocortisone 40 MG DAILY 08/04 1000 AC 08/13 Sodium Succinate IV 1043 Morphine Sulfate 2 MG Q6P PRN 08/13 1445 AC IV Nitroglycerin 1 GM Q6 08/02 2359 DC 08/11 TOP 1846 Pantoprazole Sodium 40 MG DAILY 07/30 2200 AC 08/13 IV 1043 Potassium Chloride 20 MEQ BID 08/08 1800 AC 08/13 PO 1043 Scopolamine HBr 1 PAT Q72H 08/13 1100 AC 08/13 TOP 1144 Sodium Chloride 2 SPRAY Q4P PRN 07/31 1715 AC 07/31 KRYSTYNA 1735 Impression/Plan Impression/Problem List Impression: 86 year old lady with past medical history significant for COPD, history of lupus (maintained on prednisone 10 mg daily), COPD, hypertension and myelodysplastic syndrome, and bri esophagitis was admitted 07/29 for sepsis. No Labs were ordered overnight. Goals of care addressed this morning by Dr. Nagy. Patient and family would like to persue comfort measures at this time. Assessment/plan: #Acute hypoxemic respiratory failure: * on Non rebreather * Restarted tube feeding via JENY tube rate at reduced * On prednisone 10 mg daily, continue with equivalent of IV Solu-Cortef 40 mg daily #History of COPD: * TRC/nebs as needed * IV steroids as above #Sepsis: afebrile overnight, no leukocytosis * Possible consolidation in the chest, likely pneumonia, suspect aspiration pneumonia * Sputum cultures growing pansensitive Pseudomonas. * ID on board appreciate recommendations * Continue with ceftazidime 1 g decreased to q12 per ID (D#12/17) -will discontinue today #Bilateral lower extremity discoloration: * Doppler negative for DVTs. * Vascular insult appreciated. They recommend Asael bandage. * The patient has been refusing Asael bandage #Elevated troponins * Troponin peaked, attributed to demand ischemia given her comorbidities * Follow cardiology recommendations * electrolytes repleted #History of MDS/anemia * Initially DIC panel positive for very low Fibrinogen; repeat shows elevated fibrinogen. * Appreciate Heme/Onc recs * Will give FFP if active bleeding * Recheck DIC panel if there is any worsening of hematologic parameters or bleeding * Transfuse with cryo if fibrinogen<100 last checked 08/09/17 434 #History of Lupus: * On hydroxychloroquine and prednisone 10 mg daily at home. * Hydroxychloroquine is associated with leukopenia, thrombocytopenia and aplastic anemia along with hemolysis. Note that after discontinuing medication her counts seem to have significantly improved. * Continue to hold hydroxychloroquine * Continue steroids #Electrolytes abnormalities * Monitor electrolytes and replete accordingly #Hemoccult positive: * H&H stable * Not on any AC or Anti-plt * Monitor closely #Malnutriton low lenny score #DVT PPX: * ALPS given worsening of thrombocytopenia #Code status: * Full code * poor prognosis Problem List: 1. Respiratory failure 2. Thrombocytopenia 3. Elevated troponin Pain Ratin Tomorrow's Labs & Rationales: none required Plan DVT/Prophylaxis: mechanical Marck Blackwell MD 08/13/17 1442: Attending MD Review Statement Attending Sign Off Attending Cosign Statement: I have: examined this patient, reviewed al EMR data, personally reviewd images, discussd w/resident/PA/BOOK SORTER, discussed mgmt plan w/monique, discussed mgmt plan w/CM, discussed mgmt plan w/pt, agreed w/resident/PA/BOOK SORTER, amended to note. Other Findings: Impression 86 year old woman hx of MDS/Anemia acute hypoxemic respiratory failure sepsis - likely urinary vs GI source troponinemia Plan for comfort care per patient choice, family is in agreement. TTS 35 min
[2017-08-13 08:00] VITALS: BP 106/60
--- NOTE | 2017-08-13 13:40 | Transfer of Care Summary ---
Hospital Course Course Hospital Course: 86-year-old lady with past medical history significant for myelodysplastic syndrome and chronic anemia requiring blood transfusions, lupus on hydroxychloroquine and prednisone, GERD, hx of COPD, and hypertension who was brought to the hospital for further evaluation of diarrhea and weakness. In the ER she was febrile to 102.4. She was guaiac negative. Laboratory data revealed a white blood cell count of 7000, with 25 segs and 12 bands, H&H 5.5 and 18, platelets 71,000, glucose 43, BUN/creatinine 17 and 0.7, potassium 2.6, lactic acid 3.2, calcium 4.8, with normal liver enzymes, troponin 0.11, proBNP 4350, INR 1.98/PTT 44. Urinalysis 5-10 RBCs/50-75 WBCs. Chest x-ray revealed increased interstitial markings. She was admitted to the ICU for the following: Acute hypoxemic respiratory failure in the setting of emphsyema secondary interstial edema and continuing aspiration: She was initally on nasal cannula during her hospitalization she progressively worsened to require high flow and eventually bipap. Diuresed with IV lasix daily till euvolemia was achieved and then discontinued. Maintained on IV Solu- Cortef 40 mg daily Sepsis likely due to pneumonia Pressors were never required and BP responded to fluids and steriods Sputum cultures grew pansensitive Pseudomonas. ID on board. Initially treated with Vancomycin and ceftazidine. Vanco was dc and ceftazidime was continued per ID Bilateral lower extremity discoloration: Doppler negative for DVTs. Vascular recommend Asael bandage which the patient has been refusing Asael bandage Elevated troponins Troponin peaked and trended down, attributed to demand ischemia given her comorbidities IV heparin was started and was later discontinued as she was noted to active nasal bleeding. History of MDS/anemia Initially DIC panel positive for very low Fibrinogen; repeated showed elevated fibrinogen. Heme/Onc were consulted and she was monitored for active bleeding History of Lupus: On hydroxychloroquine and prednisone 10 mg daily at home. Maintained on IV Solu -Cortef 40 mg daily for her adrenal insufficiency. Malnutriton low lenny score, currently on low rate of tube feeds. Code status: Made comfort care today. Her antibiotics and IV steriods were discontinued. very poor prognosis Assessment/Plan: Things to follow up: -address if family would like to consult hospice -if patient would like to continue on tube feeds -pain management, she did not require much pain meds in ICU
[2017-08-13 14:24] VITALS: BP 90/52
[2017-08-13 22:05] VITALS: BP 108/52
--- NOTE | 2017-08-14 07:28 | PN- Housestaff ---
Margarito PROCTOR,Ruddy 08/14/17 0727: Subjective Follow-up For: Sepsis secondary to pneumonia , likely aspiration. Acute hypoxemic respiratory failure Demand ischemia Malnutrition Subjective: Patient was seen and examined at bedside, family was also present at bedside. She was resting comfortably. She had no acute events overnight. After being transferred to [facility] last night and attempt at a goals of care discussion was had with the patient and 3 of her children. Family did not seem emotionally ready to have this discussion as it had been a prolonged process to get them to the point of comfort measures. They were informed that this discussion could be temporarily delayed but would need to be had in the future. She is complaining of nonproductive cough and dry mouth. Patient has no other complaints. She denies any pain, chest discomfort, shortness of breath, nausea, vomiting, fever, chills. Review of Systems Constitutional: Denies: chills, fever, malaise. Cardiovascular: Denies: chest pain, palpitations. Respiratory: Reports: cough. Denies: short of breath, sputum production. Gastrointestinal: Reports: no symptoms. Genitourinary: Reports: no symptoms. Objective Last 24 Hrs of Vital Signs/I&O Vital Signs Date Time Temp Pulse Resp B/P B/P Pulse O2 O2 Flow FiO2 Mean Ox Delivery Rate 08/14 0113 93 Nasal 100% Cannula 08/14 0000 Nasal 100% Cannula 08/13 2212 Nasal 100% Cannula 08/13 2205 97.5 70 20 108/52 100 08/13 1933 Nasal 100% Cannula 08/13 1600 100% 08/13 1558 94 Nasal 100% Cannula 08/13 1424 98.4 83 22 90/52 99 08/13 1148 Nasal 100% Cannula 08/13 0800 94 Non 100% ReBreather 08/13 0800 97.7 78 24 106/60 94 Non 100% ReBreather Intake & Output 08/14 0800 08/14 0000 08/13 1600 Intake Total 130 Output Total 75 Balance 55 Intake, Tube 80 Feeding Intake, Tube 50 Irrigant Output, Urine 75 Physical Exam General Appearance: Alert, Cooperative, No Acute Distress, AOx2 Skin Temp/Moisture Exam: Warm/Dry Cardiovascular: Regular Rate, Normal S1, Normal S2 Lungs: diminished breath sounds, scant rhonchi Abdomen: Normal Bowel Sounds, Soft, No Tenderness Extremities: scattered ecchymoses on the upper extremities Current Medications: Current Medications Sig/Zeb Start time Last Medication Dose Route Stop Time Status Admin Albuterol Sulfate 3 ML Q4-PRN PRN 08/12 1715 AC INH Atorvastatin Calcium 20 MG 1700 08/13 1700 CAN PO Ceftazidime 1,000 MG Q12 08/12 2200 DC 08/13 IV 1043 Glycerin 2 SPRAY Q2P PRN 08/07 0830 AC 08/07 PO 1200 Hydrocortisone 40 MG DAILY 08/04 1000 AC 08/13 Sodium Succinate IV 1043 Melatonin 5 MG AT BEDTIME 08/13 2200 AC 08/13 PO 2138 Morphine Sulfate 2 MG Q6P PRN 08/13 1445 AC IV Nitroglycerin 1 GM Q6 08/02 2359 DC 08/11 TOP 1846 Pantoprazole Sodium 40 MG DAILY 07/30 2200 AC 08/13 IV 1043 Potassium Chloride 20 MEQ BID 08/08 1800 AC 08/13 PO 2128 Scopolamine HBr 1 PAT Q72H 08/13 1100 AC 08/13 TOP 1144 Sodium Chloride 2 SPRAY Q4P PRN 07/31 1715 AC 07/31 KRYSTYNA 1735 Assessment/Plan Assessment: #Acute hypoxemic respiratory failure On high flow nasal canula #History of COPD TRC/nebs as needed IV steroids to ease breathing #Sepsis: off of antibiotics as the patient is now on comfort measures #Bilateral lower extremity discoloration: Doppler negative for DVTs. #Elevated troponins consistent with demand ischemia #Malnutriton low lenny score tube feeds currently at low rate due to patient coughing. 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 We will also reconsult nutrition in order to get recommendations for advancing the tube feeding as the patient and her family are willing to accept the risk of aspiration with increasing tube feeds Diet: Regular diet, tube feeds DVT PPX: ALPS CODE STATUS: MEDIA SERVICES COORDINATOR Problem List: 1. Respiratory failure 2. Pneumonia 3. Thrombocytopenia 4. Elevated troponin Pain Ratin Pain Location: none Pain Goal: Remain pain free Pain Plan: pain pathway Tomorrow's Labs & Rationales: none Ramon Holland MD 08/14/171701: Attending MD Review Statement Attending Statement Attending MD Statement: examined this patient, discuss w/resident/PA/PORTABLE MACHINE CUTTER, agreed w/resident/PA/PORTABLE MACHINE CUTTER, discussed with family, reviewed EMR data (avail), discussed with nursing, discussed with case mgmt, amended to note Attending Assessment/Plan: The patient was seen and discussed with house staff. Tolerating low rate NG tube feeds with some cough as per daughter. Will need to have further discussions regarding goals of care with family. Currently on Comfort Measures and will need to consider Hospice.
[2017-08-14 07:38] VITALS: BP 100/54
[2017-08-14 14:28] VITALS: BP 93/53
[2017-08-14 22:07] VITALS: BP 106/58
[2017-08-15 06:33] VITALS: BP 104/52
--- NOTE | 2017-08-15 07:22 | PN- Housestaff ---
Margarito PROCTOR,Ruddy 08/15/1722: Subjective Follow-up For: Sepsis secondary to pneumonia , likely aspiration. Acute hypoxemic respiratory failure Demand ischemia Subjective: Patient seen and examined at bedside. She had no acute events overnight. She continues to have a nonproductive cough. She has been tolerating small amounts of by mouth intake but has also been coughing afterwards. She has no other complaints and denies any chest pain, shortness of breath, nausea, vomiting, fever, chills. Review of Systems Constitutional: Reports: no symptoms. Cardiovascular: Reports: no symptoms. Respiratory: Reports: cough. Denies: short of breath. Gastrointestinal: Reports: no symptoms. Genitourinary: Reports: no symptoms. Objective Last 24 Hrs of Vital Signs/I&O Vital Signs Date Time Temp Pulse Resp B/P B/P Pulse O2 O2 Flow FiO2 Mean Ox Delivery Rate 08/15 0633 98.1 75 20 104/52 98 Nasal Cannula 08/15 0036 96 Nasal 100% Cannula 08/15 0000 94 Nasal 100% Cannula 08/14 2240 94 Nasal 100% Cannula 08/14 2207 97.5 69 20 106/58 89 Nasal Cannula 08/14 1834 96 Nasal 100% Cannula 08/14 1624 97 Nasal 100% Cannula 08/14 1600 Nasal 100% Cannula 08/14 1428 97.8 82 20 93/53 84 Nasal 25% Cannula 08/14 1210 Nasal 100% Cannula 08/14 0800 Nasal Cannula 08/14 0755 Nasal 100% Cannula 08/14 0738 97.6 71 20 100/54 100 Nasal Cannula Intake & Output 08/15 0800 08/15 0000 07 1600 Intake Total 490 80 Output Total 20 50 90 Balance 470 30 -90 Intake, Oral 360 Intake, Tube 80 30 Feeding Intake, Tube 50 50 Irrigant Number 2 Bowel Movements Output, Urine 20 50 90 Patient 79 lb 1 oz Weight Weight Bed scale Measurement Method Physical Exam General Appearance: Alert, Cooperative, No Acute Distress Cardiovascular: Regular Rate, Normal S1, Normal S2 Lungs: rhonchi, dimished breath sounds Abdomen: Normal Bowel Sounds, Soft, No Tenderness Current Medications: Current Medications Sig/Zeb Start time Last Medication Dose Route Stop Time Status Admin Albuterol Sulfate 3 ML Q4-PRN PRN 08/12 1715 AC INH Benzocaine/Menthol 1 EVANGELIST Q2P PRN 08/14 1045 AC 08/14 PO 1142 Glycerin 2 SPRAY Q2P PRN 08/07 0830 AC 08/07 PO 1200 Guaifenesin 10 ML Q6P PRN 08/14 2230 AC PO Hydrocortisone 40 MG DAILY 08/04 1000 AC 08/14 Sodium Succinate IV 0942 Melatonin 5 MG AT BEDTIME 08/13 2200 AC 08/14 PO 2109 Morphine Sulfate 2 MG Q6P PRN 08/13 1445 AC IV Pantoprazole Sodium 40 MG DAILY 07/30 2200 AC 08/14 IV 0942 Patient Medication 1 ED ONE ONE 08/14 1145 DC 08/14 Teaching ED 08/14 1146 1144 Potassium Chloride 20 MEQ BID 08/08 1800 DC 08/14 PO 0942 Scopolamine HBr 1 PAT Q72H 08/13 1100 AC 08/13 TOP 1144 Sodium Chloride 2 SPRAY Q4P PRN 07/31 1715 AC 07/31 KRYSTYNA 1735 Assessment/Plan Assessment: Patient is an 86-year-old female with a PMH significant for myelodysplastic syndrome with chronic anemia, lupus, GERD, COPD, HTN presented to the hospital with complaints of diarrhea and weakness. She had a prolonged stay in the ICU for treatment of sepsis, acute hypoxic respiratory failure and demand ischemia. She was transferred to the [facility] floor on 08/13/17 after she was made comfort measures. Goals of care discussion will be had with the patient's family this afternoon. PT evaluation will be done tomorrow to assess for the possibility of sending patient to [facility], however and I will likely require weaning the patient off of high flow O2 #Acute hypoxemic respiratory failure On high flow nasal canula #History of COPD TRC/nebs as needed IV steroids taper #Sepsis: off of antibiotics as the patient is now on comfort measures #Bilateral lower extremity discoloration: Doppler negative for DVTs. #Elevated troponins consistent with demand ischemia #Malnutriton low lenny score tube feeds are being increased per nutrition recommendations She is tolerating small amounts of by mouth diet Diet: Regular diet, tube feeds DVT PPX: ALPS CODE STATUS: APPLICATION DEVELOPER MANAGER Problem List: 1. Pneumonia 2. Respiratory failure 3. Elevated troponin Pain Ratin Pain Location: none Pain Goal: Remain pain free Pain Plan: pain pathway Tomorrow's Labs & Rationales: none Bere Marsh MD 08/15/17 1351: Attending MD Review Statement Attending Statement Attending MD Statement: examined this patient, discuss w/resident/PA/TRANSCRIBER, agreed w/resident/PA/TRANSCRIBER, reviewed EMR data (avail) Attending Assessment/Plan: 86F PMH myelodysplastic syndrome admitted to ICU several weeks ago for sepsis econdary to pneumonia complicated by respiratory failure with very poor prognosis. Will increase tube feeds, continue PO feeds, taper steroids, hold antibiotics for now, PT eval, continue discussions with patient and family. No further labs draws as patient is comfort measures only.
[2017-08-15 14:52] VITALS: BP 90/51
[2017-08-15 21:30] VITALS: BP 103/86
[2017-08-16 06:44] VITALS: BP 90/52
--- NOTE | 2017-08-16 06:58 | PN- Housestaff ---
Margarito PROCTOR,Ruddy 08/16/17 0658: Subjective Follow-up For: Sepsis secondary to pneumonia , likely aspiration. Acute hypoxemic respiratory failure Demand ischemia Subjective: Patient seen and examined at bedside. She is resting currently. She had no acute events overnight. She continues to have a cough although is improved by Robitussin yesterday. She currently has no other complaints. Review of Systems Constitutional: Denies: chills, fever. Cardiovascular: Denies: chest pain, palpitations. Respiratory: Reports: cough. Denies: short of breath, sputum production. Gastrointestinal: Reports: no symptoms. Genitourinary: Reports: no symptoms. Musculoskeletal: Reports: no symptoms. Objective Last 24 Hrs of Vital Signs/I&O Vital Signs Date Time Temp Pulse Resp B/P B/P Pulse O2 O2 Flow FiO2 Mean Ox Delivery Rate 08/16 0644 97.8 75 20 90/52 90 Nasal Cannula 08/16 0114 97 Nasal 100% Cannula 08/16 0000 97 Nasal 100% Cannula 08/15 2130 98.0 85 18 103/86 98 08/15 1923 Nasal 100% Cannula 08/15 1650 98 Nasal 100% Cannula 08/15 1600 Nasal 100% Cannula 08/15 1452 100.2 77 20 90/51 94 /08 1423 100.3 08 1400 100.3 08/15 0855 92 Nasal 100% Cannula 08/15 0800 Nasal 100% Cannula Intake & Output 08/16 0800 08/16 0000 08/15 1600 Intake Total 220 Output Total 300 Balance -300 220 Intake, IV 10 Intake, Oral 50 Intake, 160 TPN/PPN Output, Urine 300 Patient 87 lb 1 oz Weight Physical Exam General Appearance: Alert, Oriented X3, Cooperative, No Acute Distress Skin Temp/Moisture Exam: Warm/Dry Cardiovascular: Regular Rate, Normal S1, Normal S2 Lungs: diffuse rhonchi Abdomen: Normal Bowel Sounds, Soft, No Tenderness Neurological: Normal Speech, Normal Tone, Sensation Intact Extremities: ecchymoses on the bilateral upper extremities Current Medications: Current Medications Sig/Zeb Start time Last Medication Dose Route Stop Time Status Admin Acetaminophen 500 MG Q6P PRN 08/15 1415 AC 08/15 PO 1423 Albuterol Sulfate 3 ML Q4-PRN PRN 08/12 1715 AC 08/15 INH 0843 Benzocaine/Menthol 1 EVANGELIST Q2P PRN 08/14 1045 AC 08/16 PO 0521 Benzonatate 100 MG TID 08/15 1746 AC PO Glycerin 2 SPRAY Q2P PRN 08/07 0830 AC 08/07 PO 1200 Guaifenesin 10 ML .STK-MED ONE 08/15 1818 DC PO 08/15 1819 Guaifenesin 10 ML .STK-MED ONE 08/15 0840 DC PO 08/15 0841 Guaifenesin 10 ML Q6P PRN 08/14 2230 AC 08/16 PO 0521 Hydrocortisone 40 MG DAILY 08/04 1000 DC 08/15 Sodium Succinate IV 0842 Melatonin 5 MG AT BEDTIME 08/13 2200 AC 08/15 PO 2048 Morphine Sulfate 2 MG Q6P PRN 08/13 1445 AC 08/15 IV 0943 Pantoprazole Sodium 40 MG DAILY 07/30 2200 AC 08/15 IV 0842 Patient Medication 1 ED ONE ONE 08/15 1600 DC Teaching ED 08/15 1601 Prednisone 10 MG DAILY 08/28 1000 AC PO Prednisone 20 MG DAILY 08/25 1000 AC PO 08/28 0959 Prednisone 30 MG DAILY 08/22 1000 AC PO 08/25 0959 Prednisone 40 MG DAILY 08/19 1000 AC PO 08/22 0959 Prednisone 50 MG DAILY 08/16 1000 CAN PO 08/28 0959 Prednisone 50 MG DAILY 08/16 1000 AC PO 08/19 0959 Scopolamine HBr 1 PAT Q72H 08/13 1100 AC 08/13 TOP 1144 Sodium Chloride 2 SPRAY Q4P PRN 07/31 1715 AC 07/31 KRYSTYNA 1735 Assessment/Plan Assessment: Patient is an 86-year-old female with a PMH significant for myelodysplastic syndrome with chronic anemia, lupus, GERD, COPD, HTN presented to the hospital with complaints of diarrhea and weakness. She had a prolonged stay in the ICU for treatment of sepsis, acute hypoxic respiratory failure and demand ischemia. She was transferred to the [facility] floor on 08/13/17 after she was made comfort measures. Goals of care discussion will be had with the patient's family yesterday. No decisions were made but the family and patient were made aware of their options moving forward including hospice care or STR if we can wean off of high flow O2 or home with 24 hour care. PT cannot evaluate the patient while she is on high flow oxygen #Acute hypoxemic respiratory failure On high flow nasal canula, will attempt to wean off of high flow. #History of COPD TRC/nebs as needed IV steroids taper #Sepsis: off of antibiotics as the patient is now on comfort measures #Bilateral lower extremity discoloration: Doppler negative for DVTs. 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 Pneumonia 2. Respiratory failure 3. Chronic anemia 4. Elevated troponin Pain Ratin Pain Location: none Pain Goal: Remain pain free Pain Plan: pain pathway Tomorrow's Labs & Rationales: none Bere Marsh MD 08/16/17 1356: Attending MD Review Statement Attending Statement Attending MD Statement: examined this patient, discuss w/resident/PA/CAREER DEVELOPMENT CONSULTANT, agreed w/resident/PA/CAREER DEVELOPMENT CONSULTANT, reviewed EMR data (avail) Attending Assessment/Plan: 86F PMH myelodysplastic syndrome admitted to ICU several weeks ago for sepsis econdary to pneumonia complicated by respiratory failure with very poor prognosis. Will increase tube feeds, continue PO feeds, taper steroids, hold antibiotics for now, PT eval, continue discussions with patient and family. No further labs draws as patient is comfort measures only.
[2017-08-16 15:30] VITALS: BP 98/60
[2017-08-16 22:33] VITALS: BP 95/49
[2017-08-17 06:20] VITALS: BP 100/50
--- NOTE | 2017-08-17 08:08 | PN- Housestaff ---
Margarito PROCTOR,Ruddy 08/17/17 0807: Subjective Follow-up For: Sepsis secondary to pneumonia , likely aspiration. Acute hypoxemic respiratory failure Demand ischemia Subjective: Patient was seen and examined at bedside. She had no acute events overnight. She continues to complain of cough and now new onset right-sided pain, she has difficulty conveying the location and says that it is all along the right side. The has no other complaints and denies any chest pain, shortness of breath, nausea, vomiting, fever, chills. Review of Systems Constitutional: Denies: chills, fever. Cardiovascular: Denies: chest pain, palpitations. Respiratory: Reports: cough. Denies: short of breath. Gastrointestinal: Reports: no symptoms. Genitourinary: Reports: no symptoms. Musculoskeletal: Reports: see HPI. Objective Last 24 Hrs of Vital Signs/I&O Vital Signs Date Time Temp Pulse Resp B/P B/P Pulse O2 O2 Flow FiO2 Mean Ox Delivery Rate 08/17 0749 83 Nasal 100% Cannula 08/17 0620 97.6 69 22 100/50 98 Nasal Cannula 08/17 0111 92 Nasal 100% Cannula 08/17 0000 Nasal 100% Cannula 08/16 2233 97.8 74 20 95/49 91 Nasal Cannula 08/16 1530 97.3 73 22 98/60 92 08/16 1038 96 Nasal 100% Cannula Intake & Output 08/17 1600 08/17 0800 08/17 0000 Intake Total 600 Output Total 150 200 Balance -150 400 Intake, Oral 100 Intake, Tube 360 Feeding Intake, Tube 140 Irrigant Number 0 1 Bowel Movements Output, Urine 150 200 Patient 90 lb 4 oz Weight Weight Bed scale Measurement Method Physical Exam General Appearance: Alert, Oriented X3, Cooperative, No Acute Distress Skin Temp/Moisture Exam: Warm/Dry Cardiovascular: Regular Rate, Normal S1, Normal S2 Lungs: diffuse rhonchi Abdomen: Normal Bowel Sounds, mildly distended, mild TTP of the RUQ and RLQ Neurological: Normal Speech, Normal Tone, Sensation Intact Extremities: large ecchymoses on the UEs Other Physical Findings: Mild TTP of RUQ, RLQ of abdomen and R lateral chest along the mid axillary line, no overlying skin changes Current Medications: Current Medications Sig/Zeb Start time Last Medication Dose Route Stop Time Status Admin Acetaminophen 500 MG Q6P PRN 08/15 1415 AC 08/15 PO 1423 Albuterol Sulfate 3 ML Q4-PRN PRN 08/12 1715 AC 08/15 INH 0843 Benzocaine/Menthol 1 EVANGELIST Q2P PRN 08/14 1045 AC 08/16 PO 0521 Benzonatate 100 MG TID 08/15 1746 DC PO Glycerin 2 SPRAY Q2P PRN 08/07 0830 AC 08/07 PO 1200 Guaifenesin 10 ML .STK-MED ONE 08/16 1614 DC PO 08/16 1615 Guaifenesin 10 ML .STK-MED ONE 08/16 1023 DC PO 08/16 1024 Guaifenesin 10 ML Q6P PRN 08/14 2230 AC 08/17 PO 0021 Melatonin 5 MG AT BEDTIME 08/13 2200 AC 08/16 PO 2132 Morphine Sulfate 2 MG Q6P PRN 08/13 1445 AC 08/15 IV 0943 Pantoprazole Sodium 40 MG DAILY 07/30 2200 AC 08/16 IV 1032 Prednisone 10 MG DAILY 08/28 1000 AC PO Prednisone 20 MG DAILY 08/25 1000 AC PO 08/28 0959 Prednisone 30 MG DAILY 08/22 1000 AC PO 08/25 0959 Prednisone 40 MG DAILY 08/19 1000 AC PO 08/22 0959 Prednisone 50 MG DAILY 08/16 1000 AC 08/16 PO 08/19 0959 1026 Scopolamine HBr 1 PAT Q72H 08/13 1100 AC 08/16 TOP 1032 Sodium Chloride 2 SPRAY Q4P PRN 07/31 1715 AC 07/31 KRYSTYNA 1735 Assessment/Plan Assessment: Patient is an 86-year-old female with a PMH significant for myelodysplastic syndrome with chronic anemia, lupus, GERD, COPD, HTN presented to the hospital with complaints of diarrhea and weakness. She had a prolonged stay in the ICU for treatment of sepsis, acute hypoxic respiratory failure and demand ischemia. She was transferred to the [facility] floor on 08/13/17 after she was made comfort measures. Patient is complaining of new onset right-sided pain, but having difficulty conveying where exactly the pain is. She has mild tenderness to palpation along the right side and some mild abdominal distention. She was started on a regimen with MiraLAX. The pain was not improved by morphine, and Lidoderm patch was started. #Acute hypoxemic respiratory failure Attempts to wean off of high flow nasal oxygen were unsuccessful yesterday. #History of COPD TRC/nebs as needed oral steroids taper #Sepsis: off of antibiotics as the patient is now on comfort measures #Bilateral lower extremity discoloration: Doppler negative for DVTs. 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 Pneumonia 2. Respiratory failure 3. Thrombocytopenia 4. Chronic anemia 5. Elevated troponin Pain Ratin Pain Location: R side Pain Goal: Remain pain free Pain Plan: lidocaine patch, morphine, tylenol Tomorrow's Labs & Rationales: none Bere Marsh MD 08/17/17 1436: Attending MD Review Statement Attending Statement Attending MD Statement: examined this patient, discuss w/resident/PA/BATCH AND FURNACE OPERATOR, agreed w/resident/PA/BATCH AND FURNACE OPERATOR, reviewed EMR data (avail) Attending Assessment/Plan: 86F PMH myelodysplastic syndrome admitted to ICU several weeks ago for sepsis econdary to pneumonia complicated by respiratory failure with very poor prognosis. Will increase tube feeds, continue PO feeds, taper steroids, hold antibiotics for now, PT eval, continue discussions with patient and family. No further labs draws as patient is comfort measures only.
[2017-08-17 15:06] VITALS: BP 108/60
[2017-08-17 22:16] VITALS: BP 93/52
[2017-08-18 06:20] VITALS: BP 104/52
--- NOTE | 2017-08-18 08:51 | PN- Housestaff ---
Margarito PROCTOR,Ruddy 08/18/17 0851: Subjective Follow-up For: Sepsis secondary to pneumonia , likely aspiration. Acute hypoxemic respiratory failure Demand ischemia Subjective: Patient was seen and examined at bedside. She had no acute events overnight. Patient continues to complain of cough which has now become productive with some greenish sputum. Her right-sided pain is not resolved. The has no other complaints and denies any chest pain, shortness of breath, nausea, vomiting, fever, chills. Review of Systems Constitutional: Reports: no symptoms. EENTM: Reports: no symptoms. Cardiovascular: Reports: no symptoms. Respiratory: Reports: cough, sputum production. Gastrointestinal: Reports: no symptoms. Genitourinary: Reports: no symptoms. Musculoskeletal: Reports: no symptoms. Objective Last 24 Hrs of Vital Signs/I&O Vital Signs Date Time Temp Pulse Resp B/P B/P Pulse O2 O2 Flow FiO2 Mean Ox Delivery Rate 08/18 0620 98.4 77 20 104/52 97 Nasal Cannula 08/18 0000 96 Nasal Cannula 08/17 2329 96 08/17 2216 98.3 77 22 93/52 85 08/17 2211 Nasal 100% Cannula 08/17 1905 95 Nasal 100% Cannula 08/17 1627 98 Nasal 100% Cannula 08/17 1506 97.7 81 20 108/60 98 Intake & Output 08/18 1600 08/18 0800 08/18 0000 Intake Total 500 145 Output Total 150 150 Balance 350 -5 Intake, Oral 10 Intake, Tube 360 135 Feeding Intake, Tube 140 Irrigant Number 0 Bowel Movements Output, Urine 150 150 Patient 91 lb 5 oz Weight Weight Bed scale Measurement Method Physical Exam General Appearance: Alert, Oriented X3, Cooperative, No Acute Distress Skin Temp/Moisture Exam: Warm/Dry Cardiovascular: Regular Rate, Normal S1, Normal S2 Lungs: diffuse rhonchi Abdomen: Normal Bowel Sounds, Soft, No Tenderness Current Medications: Current Medications Sig/Zeb Start time Last Medication Dose Route Stop Time Status Admin Acetaminophen 500 MG Q4 HRS NEEDED PRN 08/17 1415 AC PO Acetaminophen 500 MG Q6P PRN 08/15 1415 DC 08/17 PO 0905 Albuterol Sulfate 3 ML Q4-PRN PRN 08/12 1715 AC 08/15 INH 0843 Benzocaine/Menthol 1 EVANGELIST Q2P PRN 08/14 1045 AC 08/16 PO 0521 Glycerin 2 SPRAY Q2P PRN 08/07 0830 AC 08/07 PO 1200 Guaifenesin 10 ML Q6P PRN 08/14 2230 AC 08/17 PO 0021 Lidocaine 1 PAT DAILY@1300 08/17 1300 AC 08/17 EXT 1350 Melatonin 5 MG AT BEDTIME 08/13 2200 AC 08/17 PO 2200 Morphine Sulfate 2 MG Q4 HRS NEEDED PRN 08/17 1415 AC 08/17 IV 1420 Morphine Sulfate 2 MG Q6P PRN 08/13 1445 DC 08/17 IV 0857 Pantoprazole Sodium 40 MG DAILY 07/30 2200 AC 08/17 IV 1047 Polyethylene Glycol 17 GM DAILY 08/17 1032 AC 08/17 PO 1053 Prednisone 10 MG DAILY 08/28 1000 AC PO Prednisone 20 MG DAILY 08/25 1000 AC PO 08/28 0959 Prednisone 30 MG DAILY 08/22 1000 AC PO 08/25 0959 Prednisone 40 MG DAILY 08/19 1000 AC PO 08/22 0959 Prednisone 50 MG DAILY 08/16 1000 AC 08/17 PO 08/19 0959 0904 Scopolamine HBr 1 PAT Q72H 08/13 1100 AC 08/16 TOP 1032 Sodium Chloride 2 SPRAY Q4P PRN 07/31 1715 AC 07/31 KRYSTYNA 1735 Assessment/Plan Assessment: Patient is an 86-year-old female with a PMH significant for myelodysplastic syndrome with chronic anemia, lupus, GERD, COPD, HTN presented to the hospital with complaints of diarrhea and weakness. She had a prolonged stay in the ICU for treatment of sepsis, acute hypoxic respiratory failure and demand ischemia. She was transferred to the [facility] floor on 08/13/17 after she was made comfort measures. Patient is complaining of new onset right-sided pain, but having difficulty conveying where exactly the pain is. She has mild tenderness to palpation along the right side and some mild abdominal distention. She was started on a regimen with MiraLAX. The pain was not improved by morphine, and Lidoderm patch was started. #Acute hypoxemic respiratory failure Attempts to wean off of high flow nasal oxygen were unsuccessful. We will attempt again tomorrow and have continued treatment goals of care discussion with the family based on the results. #History of COPD TRC/nebs as needed oral steroids taper #Sepsis: off of antibiotics as the patient is now on comfort measures #Bilateral lower extremity discoloration: Doppler negative for DVTs. 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 Pneumonia 2. Respiratory failure 3. Elevated troponin Pain Ratin Pain Location: none Pain Goal: Remain pain free Pain Plan: pain pathway Tomorrow's Labs & Rationales: none Bere Marsh MD 08/18/17 1324: Attending MD Review Statement Attending Statement Attending MD Statement: examined this patient, discuss w/resident/PA/SKID STRAPPER, agreed w/resident/PA/SKID STRAPPER, reviewed EMR data (avail) Attending Assessment/Plan: 86F [facility] myelodysplastic syndrome admitted to ICU several weeks ago for sepsis econdary to pneumonia complicated by respiratory failure with very poor prognosis. Will increase tube feeds, continue PO feeds, taper steroids, hold antibiotics for now, PT eval, continue discussions with patient and family. No further labs draws as patient is comfort measures only.
[2017-08-18 14:39] VITALS: BP 109/64
[2017-08-18 22:22] VITALS: BP 103/66
[2017-08-19 06:20] VITALS: BP 104/68
--- NOTE | 2017-08-19 07:22 | PN- Housestaff ---
Margarito PROCTOR,Ruddy 08/19/17 0721: Subjective Follow-up For: Sepsis secondary to pneumonia , likely aspiration. Acute hypoxemic respiratory failure Demand ischemia Subjective: Patient was seen and examined at bedside. She is resting comfortably. She had no acute events overnight. Her NG tube has become clogged, with unsuccessful attempts to unclog it. She is able to take in small amounts of by mouth diet. She continues to complain of a productive cough. She denies any chest pain, shortness of breath, nausea, vomiting, fever, chills. Review of Systems Constitutional: Reports: no symptoms. EENTM: Reports: no symptoms. Cardiovascular: Reports: no symptoms. Respiratory: Reports: cough, sputum production. Denies: short of breath. Gastrointestinal: Reports: no symptoms. Genitourinary: Reports: no symptoms. Musculoskeletal: Reports: no symptoms. Skin: Reports: no symptoms. Objective Last 24 Hrs of Vital Signs/I&O Vital Signs Date Time Temp Pulse Resp B/P B/P Pulse O2 O2 Flow FiO2 Mean Ox Delivery Rate 08/19 0620 97.9 67 20 104/68 92 Nasal Cannula 08/19 0000 Nasal 95% Cannula 08/18 2222 98.3 80 20 103/66 95 Nasal Cannula 08/18 2216 96 Nasal 95% Cannula 08/18 1923 96 Nasal 100% Cannula 08/18 1626 92 Nasal 100% Cannula 08/18 1439 97.6 81 22 109/64 93 08/18 1430 99 Nasal 100% Cannula 08/18 1412 99 Nasal 100% Cannula 08/18 1137 Nasal 100% Cannula 08/18 1001 Nasal 100% Cannula 08/18 0800 98 Nasal 100% Cannula Intake & Output 08/19 0800 08/19 0000 08/18 1600 Intake Total 570 250 940 Output Total 75 250 400 Balance 495 0 540 Intake, Oral 400 Intake, 540 TPN/PPN Intake, Tube 360 180 Feeding Intake, Tube 210 70 Irrigant Number 0 Bowel Movements Output, Urine 75 250 400 Patient 91 lb 6 oz Weight Weight Bed scale Measurement Method Physical Exam General Appearance: Alert, Oriented X3, Cooperative, No Acute Distress Skin Temp/Moisture Exam: Warm/Dry HEENT: abrasion on nose and upper lip Cardiovascular: Regular Rate, Normal S1, Normal S2 Lungs: Clear to Auscultation, Normal Air Movement Abdomen: Normal Bowel Sounds, Soft, No Tenderness Neurological: Normal Speech, Normal Tone, Sensation Intact Current Medications: Current Medications Sig/Zeb Start time Last Medication Dose Route Stop Time Status Admin Acetaminophen 500 MG Q4 HRS NEEDED PRN 08/17 1415 AC PO Albuterol Sulfate 3 ML Q4-PRN PRN 08/12 1715 AC 08/15 INH 0843 Benzocaine/Menthol 1 EVANGELIST Q2P PRN 08/14 1045 AC 08/16 PO 0521 Benzonatate 100 MG TID 08/18 1015 AC 08/18 PO 2138 Glycerin 2 SPRAY Q2P PRN 08/07 0830 AC 08/07 PO 1200 Guaifenesin 10 ML .STK-MED ONE 08/18 2026 DC PO 08/19 2027 Guaifenesin 10 ML .STK-MED ONE 08/18 0923 DC PO 08/18 0924 Guaifenesin 10 ML Q6P PRN 08/14 2230 AC 08/18 PO 0924 Lidocaine 1 PAT DAILY@1300 08/17 1300 AC 08/18 EXT 1516 Melatonin 5 MG AT BEDTIME 08/13 2200 AC 08/18 PO 2138 Morphine Sulfate 2 MG Q4 HRS NEEDED PRN 08/17 1415 AC 08/17 IV 1420 Pantoprazole Sodium 40 MG DAILY 07/30 2200 AC 08/18 IV 1010 Polyethylene Glycol 17 GM DAILY 08/17 1032 AC 08/18 PO 1026 Prednisone 10 MG DAILY 08/28 1000 AC PO Prednisone 20 MG DAILY 08/25 1000 AC PO 08/28 0959 Prednisone 30 MG DAILY 08/22 1000 AC PO 08/25 0959 Prednisone 40 MG DAILY 08/19 1000 AC PO 08/22 0959 Prednisone 50 MG DAILY 08/16 1000 AC 08/18 PO 08/19 0959 1010 Scopolamine HBr 1 PAT Q72H 08/13 1100 AC 08/16 TOP 1032 Sodium Chloride 2 SPRAY Q4P PRN 07/31 1715 AC 07/31 KRYSTYNA 1735 Assessment/Plan Assessment: Patient is an 86-year-old female with a PMH significant for myelodysplastic syndrome with chronic anemia, lupus, GERD, COPD, HTN presented to the hospital with complaints of diarrhea and weakness. She had a prolonged stay in the ICU for treatment of sepsis, acute hypoxic respiratory failure and demand ischemia. She was transferred to the [facility] floor on 08/13/17 after she was made comfort measures. pain has resolved, plan to meet with the family today to discuss goals of care #Acute hypoxemic respiratory failure Attempts to wean off of high flow nasal oxygen were unsuccessful. We will attempt again tomorrow and have continued treatment goals of care discussion with the family based on the results. #History of COPD TRC/nebs as needed oral steroids taper #Sepsis: off of antibiotics as the patient is now on comfort measures #Bilateral lower extremity discoloration: Doppler negative for DVTs. 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 Pneumonia 2. Respiratory failure 3. Chronic anemia 4. Elevated troponin Pain Ratin Pain Location: none Pain Goal: Remain pain free Pain Plan: pain pathway Tomorrow's Labs & Rationales: none Bere Marsh MD 08/19/17 1432: Attending MD Review Statement Attending Statement Attending MD Statement: examined this patient, discuss w/resident/PA/MICROECONOMICS PROFESSOR, agreed w/resident/PA/MICROECONOMICS PROFESSOR, reviewed EMR data (avail) Attending Assessment/Plan: NG clogged today, will continue to try to flush, continue conversations with family regarding goals of care
[2017-08-19 14:19] VITALS: BP 100/60
[2017-08-19 23:11] VITALS: BP 114/68
--- NOTE | 2017-08-20 06:53 | PN- Housestaff ---
Margarito PROCTOR,Ruddy 08/20/17 0653: Subjective Follow-up For: Sepsis secondary to pneumonia , likely aspiration. Acute hypoxemic respiratory failure Demand ischemia Subjective: Patient seen and examined at bedside. She had no acute events overnight. She was complaining of right-sided pain similar to her previous complaints. Her NG tube is still clogged. Her cough continues to improve. She has no new complaints and denies any chest pain or shortness of breath, nausea vomiting fever, chills. Review of Systems Constitutional: Reports: no symptoms. EENTM: Reports: no symptoms. Respiratory: Reports: cough. Gastrointestinal: Reports: see HPI, abdominal pain. Objective Last 24 Hrs of Vital Signs/I&O Vital Signs Date Time Temp Pulse Resp B/P B/P Pulse O2 O2 Flow FiO2 Mean Ox Delivery Rate 08/20 0139 99 Nasal 100% Cannula 08/19 2311 97.2 62 20 114/68 100 08/19 2250 94 Nasal 95% Cannula 08/19 1959 93 Nasal 95% Cannula 08/19 1642 93 Nasal 95% Cannula 08/19 1600 100% 08/19 1419 97.8 61 21 100/60 95 08/19 1414 Nasal 100% Cannula 08/19 0920 95 Nasal 100% Cannula 08/19 0800 Nasal 100% Cannula Intake & Output 08/20 0800 08/20 0000 08/19 1600 Intake Total 250 Output Total 300 Balance -50 Intake, Oral 250 Output, Urine 300 Physical Exam General Appearance: Alert, Oriented X3, Cooperative, No Acute Distress Skin Temp/Moisture Exam: Warm/Dry Cardiovascular: Regular Rate, Normal S1, Normal S2 Lungs: diffuse rhonchi, improved from yesterday Abdomen: Normal Bowel Sounds, No Tenderness, mild distension Current Medications: Current Medications Sig/Zeb Start time Last Medication Dose Route Stop Time Status Admin Acetaminophen 600 MG Q6-PRN PRN 08/19 1030 AC 08/19 IV 1022 Acetaminophen 1,000 MG Q6H PRN 08/19 1015 DC N/A 1 UNIT IV Acetaminophen 500 MG Q4 HRS NEEDED PRN 08/17 1415 DC PO Albuterol Sulfate 3 ML Q4-PRN PRN 08/12 1715 AC 08/15 INH 0843 Benzocaine/Menthol 1 EVANGELIST Q2P PRN 08/14 1045 AC 08/19 PO 0833 Benzonatate 100 MG TID 08/18 1015 AC 08/19 PO 202 Glycerin 2 SPRAY Q2P PRN 08/07 0830 AC 08/07 PO 1200 Guaifenesin 10 ML .STK-MED ONE 08/19 1001 DC PO 08/19 1002 Guaifenesin 10 ML Q6P PRN 08/14 2230 AC 08/19 PO 1002 Lidocaine 1 PAT DAILY@1300 08/17 1300 AC 08/18 EXT 1516 Melatonin 5 MG AT BEDTIME 08/13 2200 AC 08/19 PO 202 Morphine Sulfate 2 MG Q4 HRS NEEDED PRN 08/17 1415 AC 08/17 IV 1420 Pantoprazole Sodium 40 MG DAILY 07/30 2200 AC 08/19 IV 0834 Polyethylene Glycol 17 GM DAILY 08/17 1032 AC 08/19 PO 0833 Prednisone 10 MG DAILY 08/28 1000 AC PO Prednisone 20 MG DAILY 08/25 1000 AC PO 08/28 0959 Prednisone 30 MG DAILY 08/22 1000 AC PO 08/25 0959 Prednisone 40 MG DAILY 08/19 1000 AC 08/19 PO 08/22 0959 0833 Prednisone 50 MG DAILY 08/16 1000 DC 08/18 PO 08/19 0959 1010 Scopolamine HBr 1 PAT Q72H 08/13 1100 AC 08/19 TOP 0833 Sodium Chloride 2 SPRAY Q4P PRN 07/31 1715 AC 07/31 KRYSTYNA 1735 Assessment/Plan Assessment: Patient is an 86-year-old female with a PMH significant for myelodysplastic syndrome with chronic anemia, lupus, GERD, COPD, HTN presented to the hospital with complaints of diarrhea and weakness. She had a prolonged stay in the ICU for treatment of sepsis, acute hypoxic respiratory failure and demand ischemia. She was transferred to the [facility] med floor on 08/13/17 after she was made comfort measures. NG tube was removed today. Patient tolerated this well and is now on a pure diet this will be advanced as tolerated. #Acute hypoxemic respiratory failure We'll attempt to wean off of high flow oxygen with a lower goal is by mouth of 86% -Pulmonary recommendations appreciated #History of COPD TRC/nebs as needed oral steroids taper #Sepsis: off of antibiotics as the patient is now on comfort measures #Bilateral lower extremity discoloration: Doppler negative for DVTs. #Elevated troponins consistent with demand ischemia #Malnutriton low lenny score tube feeds were at goal, but now on hold due to clog in line She is tolerating small amounts of by mouth diet but continues to cough with by mouth intake Diet: Regular diet, tube feeds on hold due to clog DVT PPX: ALPS CODE STATUS: STAFF RN Problem List: 1. Respiratory failure 2. Chronic anemia 3. Elevated troponin Pain Ratin Pain Location: R side Pain Goal: Remain pain free Pain Plan: pain pathway Tomorrow's Labs & Rationales: none Bere Marsh MD 08/20/17 1252: Attending MD Review Statement Attending Statement Attending MD Statement: examined this patient, discuss w/resident/PA/WET AND DRY SUGAR BIN OPERATOR, agreed w/resident/PA/WET AND DRY SUGAR BIN OPERATOR, reviewed EMR data (avail) Attending Assessment/Plan: NG removed. Patient is comfortable, still requiring high flow oxygen. Family requesting pulmonary re-evaluation, will call Dr. Blackwell, continue current management.
[2017-08-20 07:00] VITALS: BP 98/56
--- NOTE | 2017-08-20 13:36 | PN- Pulmonary ---
Subjective HPI/Critical Care Issues: pt seen and examined on high flow o2 nasogastric tube was removed shes eating at bedside minimal complaints she is on comfort measures Objective Current Medications: Current Medications Sig/Zeb Start time Last Medication Dose Route Stop Time Status Admin Acetaminophen 600 MG Q6-PRN PRN 08/19 1030 AC 08/19 IV 1022 Albuterol Sulfate 3 ML Q4-PRN PRN 08/12 1715 AC 08/15 INH 0843 Benzocaine/Menthol 1 EVANGELIST Q2P PRN 08/14 1045 AC 08/20 PO 0830 Benzonatate 100 MG TID 08/18 1015 AC 08/20 PO 0830 Glycerin 2 SPRAY Q2P PRN 08/07 0830 AC 08/07 PO 1200 Guaifenesin 10 ML Q6P PRN 08/14 2230 AC 08/20 PO 0830 Lidocaine 1 PAT DAILY@1300 08/17 1300 AC 08/20 EXT 1154 Melatonin 5 MG AT BEDTIME 08/13 2200 AC 08/19 PO 2026 Morphine Sulfate 2 MG Q4 HRS NEEDED PRN 08/17 1415 AC 08/20 IV 1101 Pantoprazole Sodium 40 MG DAILY 07/30 2200 AC 08/20 IV 0835 Polyethylene Glycol 17 GM DAILY 08/17 1032 AC 08/20 PO 0835 Prednisone 10 MG DAILY 08/28 1000 AC PO Prednisone 20 MG DAILY 08/25 1000 AC PO 08/28 0959 Prednisone 30 MG DAILY 08/22 1000 AC PO 08/25 0959 Prednisone 40 MG DAILY 08/19 1000 AC 08/20 PO 08/22 0959 0830 Scopolamine HBr 1 PAT Q72H 08/13 1100 AC 08/19 TOP 0833 Sodium Chloride 2 SPRAY Q4P PRN 07/31 1715 AC 07/31 KRYSTYNA 1735 Vital Signs & I&O Last 24 Hrs of Vitals and I&O: Vital Signs Date Time Temp Pulse Resp B/P B/P Pulse O2 O2 Flow FiO2 Mean Ox Delivery Rate 08/20 0800 Nasal 100% Cannula 08/20 0700 97.4 56 20 98/56 98 08/20 0139 99 Nasal 100% Cannula 08/19 2311 97.2 62 20 114/68 100 08/19 2250 94 Nasal 95% Cannula 08/19 1959 93 Nasal 95% Cannula 08/19 1642 93 Nasal 95% Cannula 08/19 1600 100% 08/19 1419 97.8 61 21 100/60 95 08/19 1414 Nasal 100% Cannula Intake & Output 08/20 1600 08/20 0800 08/20 0000 Intake Total 250 Output Total 325 300 Balance -325 -50 Intake, Oral 250 Output, Urine 325 300 Patient 84 lb 8 oz Weight Exam Other Physical Findings: gen awake heent nasal cannula cvs s1, s2 lungs rare rhonchi ext ecchymosis Impression/Plan Impression/Plan Impression/Plan: Impression 86 year old woman hx of MDS/Anemia acute hypoxemic respiratory failure Plan -continue comfort measures -would recommend to discuss with respiratory therapy regarding options such as a nasal pendant to reduce high flow o2 -goal spo2 can be set to be >86% -continue trc/nebs -prednisone taper as ordered
[2017-08-20 15:00] VITALS: BP 120/66
[2017-08-21 06:50] VITALS: BP 110/60
--- NOTE | 2017-08-21 07:07 | PN- Housestaff ---
Margarito PROCTOR,Ruddy 08/21/17 0706: Subjective Follow-up For: Sepsis secondary to pneumonia , likely aspiration. Acute hypoxemic respiratory failure Demand ischemia Subjective: Patient seen and examined at bedside. She was resting comfortably. She had no acute events overnight. She was weaned off of high flow O2 nasal cannula and placed on 3 L O2 nasal cannula yesterday. She has been tolerating this well and denies any shortness of breath. Her cough has remained persistent with less sputum production. Review of Systems Constitutional: Reports: no symptoms. EENTM: Reports: no symptoms. Cardiovascular: Reports: no symptoms. Respiratory: Reports: cough, sputum production. Denies: short of breath. Gastrointestinal: Reports: no symptoms. Genitourinary: Reports: no symptoms. Musculoskeletal: Reports: no symptoms. Objective Last 24 Hrs of Vital Signs/I&O Vital Signs Date Time Temp Pulse Resp B/P B/P Pulse O2 O2 Flow FiO2 Mean Ox Delivery Rate 08/21 0650 97.4 52 20 110/60 99 Nasal 3.0L Cannula 08/21 0000 92 Nasal 3.0L Cannula 08/20 2235 92 Nasal 3.0L Cannula 08/20 1731 89 Nasal 100% Cannula 08/20 1600 Nasal 100% Cannula 08/20 1500 98.0 64 20 120/66 98 08/20 1346 Nasal 100% Cannula 08/20 0800 Nasal 100% Cannula Intake & Output 08/21 0800 08/21 0000 08/20 1600 Intake Total 480 100 Output Total 400 350 100 Balance -400 130 0 Intake, Oral 480 100 Output, Urine 400 350 100 Physical Exam General Appearance: Alert, Cooperative, No Acute Distress Skin Temp/Moisture Exam: Warm/Dry Cardiovascular: Regular Rate, Normal S1, Normal S2 Lungs: scant rhonchi Abdomen: Normal Bowel Sounds, Soft, No Tenderness Neurological: Normal Speech, Normal Tone, Sensation Intact Current Medications: Current Medications Sig/Zeb Start time Last Medication Dose Route Stop Time Status Admin Acetaminophen 600 MG Q6-PRN PRN 08/19 1030 AC 08/19 IV 1022 Albuterol Sulfate 3 ML Q4-PRN PRN 08/12 1715 AC 08/15 INH 0843 Benzocaine/Menthol 1 EVANGELIST Q2P PRN 08/14 1045 AC 08/20 PO 0830 Benzonatate 100 MG TID 08/18 1015 AC 08/20 PO 2114 Glycerin 2 SPRAY Q2P PRN 08/07 0830 AC 08/07 PO 1200 Guaifenesin 10 ML .STK-MED ONE 08/20 2211 DC PO 08/20 221 Guaifenesin 10 ML .STK-MED ONE 08/20 0827 DC PO 08/20 0828 Guaifenesin 10 ML Q6P PRN 08/14 2230 AC 08/20 PO 2211 Guaifenesin/ 10 ML .STK-MED ONE 08/20 2209 DC Dextromethorphan PO 08/20 2210 Lidocaine 1 PAT DAILY@1300 08/17 1300 AC 08/20 EXT 1154 Melatonin 5 MG AT BEDTIME 08/13 2200 AC 08/20 PO 2114 Morphine Sulfate 2 MG Q4 HRS NEEDED PRN 08/17 1415 AC 08/20 IV 1101 Pantoprazole Sodium 40 MG DAILY 07/30 2200 AC 08/20 IV 0835 Polyethylene Glycol 17 GM DAILY 08/17 1032 AC 08/20 PO 0835 Prednisone 10 MG DAILY 08/28 1000 AC PO Prednisone 20 MG DAILY 08/25 1000 AC PO 08/28 0959 Prednisone 30 MG DAILY 08/22 1000 AC PO 08/25 0959 Prednisone 40 MG DAILY 08/19 1000 AC 08/20 PO 08/22 0959 0830 Scopolamine HBr 1 PAT Q72H 08/13 1100 AC 08/19 TOP 0833 Sodium Chloride 2 SPRAY Q4P PRN 07/31 1715 AC 07/31 KRYSTYNA 1735 Assessment/Plan Assessment: Patient is an 86-year-old female with a PMH significant for myelodysplastic syndrome with chronic anemia, lupus, GERD, COPD, HTN presented to the hospital with complaints of diarrhea and weakness. She had a prolonged stay in the ICU for treatment of sepsis, acute hypoxic respiratory failure and demand ischemia. She was transferred to the [facility] floor on 08/13/17 after she was made comfort measures. Having weaned patient off of the high flow nasal cannula she was able to be evaluated by physical therapy and occupational therapy who have recommended short-term rehabilitation. We will await placement. #Acute hypoxemic respiratory failure We'll attempt to wean off of high flow oxygen with a lower goal is by mouth of 86% -Pulmonary recommendations appreciated -Patient was weaned off of high flow O2 nasal cannula and is now on 3 L O2 nasal cannula and saturating in the 90s with no complaints of shortness of breath #History of COPD TRC/nebs as needed oral steroids taper #Sepsis: off of antibiotics as the patient is now on comfort measures #Bilateral lower extremity discoloration: Doppler negative for DVTs. #Elevated troponins consistent with demand ischemia #Malnutriton low lenny score on PO diet now, will follow up official swallow evaluation today Diet: regular puree diet DVT PPX: ALPS CODE STATUS: ENGINEER SYSTEM ADMINISTRATOR Problem List: 1. Respiratory failure Pain Ratin Pain Location: none Pain Goal: Remain pain free Pain Plan: pain pathway Tomorrow's Labs & Rationales: none Discharge Plan Discharge Disposition: STR/NH Bere Marsh MD 08/21/17 1352: Attending MD Review Statement Attending Statement Attending MD Statement: examined this patient, discuss w/resident/PA/MACHINE ZIPPER TRIMMER, agreed w/resident/PA/MACHINE ZIPPER TRIMMER, reviewed EMR data (avail) Attending Assessment/Plan: Now off high flow oxygen and saturating well on 3L NC, was able to move with PT today. Will pursue STR bed, continue current management
--- NOTE | 2017-08-21 11:32 | PN- Pulmonary ---
Subjective HPI/Critical Care Issues: pt seen and examined reduced o2 to 3LNC Objective Current Medications: Current Medications Sig/Zeb Start time Last Medication Dose Route Stop Time Status Admin Acetaminophen 600 MG Q6-PRN PRN 08/19 1030 AC 08/19 IV 1022 Albuterol Sulfate 3 ML Q4-PRN PRN 08/12 1715 AC 08/15 INH 0843 Benzocaine/Menthol 1 EVANGELIST Q2P PRN 08/14 1045 AC 08/21 PO 1002 Benzonatate 100 MG TID 08/18 1015 AC 08/21 PO 0736 Glycerin 2 SPRAY Q2P PRN 08/07 0830 AC 08/21 PO 0736 Guaifenesin 10 ML .STK-MED ONE 08/20 2211 DC PO 08/20 2212 Guaifenesin 10 ML Q6P PRN 08/14 2230 AC 08/21 PO 0735 Guaifenesin/ 10 ML .STK-MED ONE 08/20 2209 DC Dextromethorphan PO 08/20 2210 Lidocaine 1 PAT DAILY@1300 08/17 1300 AC 08/21 EXT 0736 Melatonin 5 MG AT BEDTIME 08/13 2200 AC 08/20 PO 2114 Morphine Sulfate 2 MG Q4 HRS NEEDED PRN 08/17 1415 AC 08/20 IV 1101 Pantoprazole Sodium 40 MG DAILY 07/30 2200 AC 08/21 IV 0737 Polyethylene Glycol 17 GM DAILY 08/17 1032 AC 08/21 PO 0737 Prednisone 10 MG DAILY 08/28 1000 AC PO Prednisone 20 MG DAILY 08/25 1000 AC PO 08/28 0959 Prednisone 30 MG DAILY 08/22 1000 AC PO 08/25 0959 Prednisone 40 MG DAILY 08/19 1000 AC 08/21 PO 08/22 0959 0736 Scopolamine HBr 1 PAT Q72H 08/13 1100 AC 08/19 TOP 0833 Sodium Chloride 2 SPRAY Q4P PRN 07/31 1715 AC 07/31 KRYSTYNA 1735 Vital Signs & I&O Last 24 Hrs of Vitals and I&O: Vital Signs Date Time Temp Pulse Resp B/P B/P Pulse O2 O2 Flow FiO2 Mean Ox Delivery Rate 08/21 1043 87 Nasal 3.0L Cannula 08/21 0800 Nasal 3.0L Cannula 08/21 0650 97.4 52 20 110/60 99 Nasal 3.0L Cannula 08/21 0000 92 Nasal 3.0L Cannula 08/20 2235 92 Nasal 3.0L Cannula 08/20 1731 89 Nasal 100% Cannula 08/20 1600 Nasal 100% Cannula 08/20 1500 98.0 64 20 120/66 98 08/20 1346 Nasal 100% Cannula Intake & Output 08/21 1600 08/21 0800 08/21 0000 Intake Total 0 480 Output Total 400 350 Balance -400 130 Intake, IV 0 Intake, Oral 0 480 Number 0 Bowel Movements Output, Urine 400 350 Exam Other Physical Findings: gen awake heent nasal cannula cvs s1, s2 lungs rare rhonchi ext ecchymosis Impression/Plan Impression/Plan Impression/Plan: Impression 86 year old woman hx of MDS/Anemia acute hypoxemic respiratory failure Plan -continue comfort measures -goal spo2 can be set to be >86% -continue trc/nebs -prednisone taper as ordered DC planning call with any questions
[2017-08-21 15:09] VITALS: BP 110/75
[2017-08-21 15:12] VITALS: BP 145/82
[2017-08-22 07:00] VITALS: BP 100/50
--- NOTE | 2017-08-22 07:22 | PN- Housestaff ---
Margarito PROCTOR,Ruddy 08/22/17 0722: Subjective Follow-up For: Sepsis secondary to pneumonia , likely aspiration. Acute hypoxemic respiratory failure Demand ischemia Subjective: Patient was seen and examined at bedside. She is resting comfortably. She had no acute events overnight. She has continued to tolerate nasal cannula O2 supplementation well. Her daughter Kimberly was at bedside. And expressed her concern about potential discharge with no recent lab values and discontinuation of treatment since she was made comfort measures. The patient shared her concerns. And the discussion was had about covering the patient back to DNR/DNI and doing blood work prior to discharge. Patient has no new complaints and continues to complain of productive cough. Review of Systems Constitutional: Reports: no symptoms. EENTM: Reports: no symptoms. Cardiovascular: Reports: no symptoms. Respiratory: Reports: cough, sputum production. Denies: short of breath. Gastrointestinal: Reports: no symptoms. Genitourinary: Reports: no symptoms. Musculoskeletal: Reports: no symptoms. Skin: Reports: no symptoms. Neurological/Psychological: Reports: no symptoms. Objective Last 24 Hrs of Vital Signs/I&O Vital Signs Date Time Temp Pulse Resp B/P B/P Pulse O2 O2 Flow FiO2 Mean Ox Delivery Rate 08/22 0700 97.6 78 22 100/50 96 Nasal 3.0L Cannula 08/22 0000 91 Nasal 3.0L Cannula 08/21 2042 91 Nasal 3.0L Cannula 08/21 1600 93 Nasal 3.0L Cannula 08/21 1509 97.8 67 20 110/75 100 08/21 1115 Nasal 3.0L Cannula 08/21 1043 87 Nasal 3.0L Cannula 08/21 0800 Nasal 3.0L Cannula Intake & Output 08/22 0800 08/22 0000 08/21 1600 Intake Total 480 200 Output Total 50 Balance 430 200 Intake, Oral 480 200 Output, Urine 50 Physical Exam General Appearance: Alert, Oriented X3, Cooperative, No Acute Distress Skin Temp/Moisture Exam: Warm/Dry Sepsis Skin Exam (color): Normal for Ethnicity Cardiovascular: Regular Rate, Normal S1, Normal S2 Lungs: scant rhonchi Abdomen: Normal Bowel Sounds, Soft, No Tenderness, mild distension Neurological: Normal Speech, Normal Tone, Sensation Intact Extremities: No Clubbing, No Cyanosis, No Edema Current Medications: Current Medications Sig/Zeb Start time Last Medication Dose Route Stop Time Status Admin Acetaminophen 600 MG Q6-PRN PRN 08/19 1030 AC 08/19 IV 1022 Albuterol Sulfate 3 ML Q4-PRN PRN 08/12 1715 AC 08/15 INH 0843 Benzocaine/Menthol 1 EVANGELIST Q2P PRN 08/14 1045 AC 08/22 PO 0603 Benzonatate 100 MG TID 08/18 1015 AC 08/21 PO 2130 Calcium Carbonate 500 MG ONCE ONE 08/21 2215 DC 08/21 PO 08/21 2216 2215 Glycerin 2 SPRAY Q2P PRN 08/07 0830 AC 08/21 PO 1329 Guaifenesin 10 ML .STK-MED ONE 08/21 2250 DC PO 08/21 2251 Guaifenesin 10 ML .STK-MED ONE 08/21 1328 DC PO 08/21 1329 Guaifenesin 10 ML .STK-MED ONE 08/21 0734 DC PO 08/21 0735 Guaifenesin 10 ML Q6P PRN 08/14 2230 AC 08/22 PO 0601 Lidocaine 1 PAT DAILY@1300 08/17 1300 AC 08/21 EXT 0736 Melatonin 5 MG AT BEDTIME 08/13 2200 AC 08/21 PO 2130 Morphine Sulfate 2 MG Q4 HRS NEEDED PRN 08/17 1415 AC 08/20 IV 1101 Pantoprazole Sodium 40 MG DAILY 07/30 2200 AC 08/21 IV 0737 Polyethylene Glycol 17 GM DAILY 08/17 1032 AC 08/21 PO 0737 Prednisone 10 MG DAILY 08/28 1000 AC PO Prednisone 20 MG DAILY 08/25 1000 AC PO 08/28 0959 Prednisone 30 MG DAILY 08/22 1000 AC PO 08/25 0959 Prednisone 40 MG DAILY 08/19 1000 AC 08/21 PO 08/22 0959 0736 Scopolamine HBr 1 PAT Q72H 08/13 1100 AC 08/19 TOP 0833 Sodium Chloride 2 SPRAY Q4P PRN 07/31 1715 AC 07/31 KRYSTYNA 1735 Assessment/Plan Assessment: Patient is an 86-year-old female with a PMH significant for myelodysplastic syndrome with chronic anemia, lupus, GERD, COPD, HTN presented to the hospital with complaints of diarrhea and weakness. She had a prolonged stay in the ICU for treatment of sepsis, acute hypoxic respiratory failure and demand ischemia. She was transferred to the [facility] med floor on 08/13/17 after she was made comfort measures. Patient discussion with patient's daughter Kimberly and patient she was converted back to DNR/DNI. #Anemia Patient's CBC was checked for the first time in 9 days and showed H/H 6.8/12.7. 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 Respiratory failure 2. Anemia 3. Hypokalemia Pain Ratin Pain Location: none Pain Goal: Remain pain free Pain Plan: pain pathway Tomorrow's Labs & Rationales: cbc, bep Bere Marsh MD 08/22/17 1056: Attending MD Review Statement Attending Statement Attending MD Statement: examined this patient, discuss w/resident/PA/HUMAN SERVICE TECHNICIAN, agreed w/resident/PA/HUMAN SERVICE TECHNICIAN, reviewed EMR data (avail) Attending Assessment/Plan: 86F PMH myelodysplastic syndrome requiring intermittent transfusions, SLE on Plaquenil and Prednisone, GERD, COPD, and HTN initially admitted to ICU with sepsis and acute hypoxemic respiratory failure secondary to bilateral pseudomonal pneumonia, made comfort measures and transferred to the medicine floor on high flow oxygen, placed on 3L NC on 08/21 and saturating well. Has been treated with Prednisone taper for adrenal insufficiency with steady vitals. Overnight, family decided to remove comfort measure status and resume treatment. Patient has no complaints today and feels well. She is saturating well on 3L NC. Hgb 6.8 today, potassium 3.1. 1. Sepsis (resolved) 2. Bilateral lower lobe pneumonia due to Pseudomonas (resolved) 3. 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 Acute hypoxemic respiratory failure 5. Deconditioning 6. Chronic anemia secondary to myelodysplastic syndrome 7. Hypokalemia Plan - Continue on general medicine - Transfuse 1 unit pRBC - Replete potassium - Restart home medications - Continue Prednisone taper - DVT PPx - To STR when bed is available
[2017-08-22 09:32] LABS: ABSOLUTE BASOPHIL COUNT 0 /CUMM (0.0-0.2); ABSOLUTE EOSINOPHIL COUNT 0 /CUMM (0.0-0.7); ABSOLUTE GRANULOCYTE CT 0.4 /CUMM (1.4-6.5); ABSOLUTE LYMPH COUNT 1.8 /CUMM (1.2-3.4); ABSOLUTE MONOCYTE COUNT 0.8 /CUMM (0.10-0.60); BASOPHIL % 0 % (0.0-2.0); EOSINOPHIL % 0 % (0-5); HEMATOCRIT 21.7 % (37-47); MEAN CORPUSCULAR HGB 28.6 PG (27.0-31.0); MEAN CORPUSCULAR HGB CONC 31.4 G/DL (33.0-37.0); MEAN CORPUSCULAR VOLUME 91.1 FL (81.0-99.0); MEAN PLATELET VOLUME 9.2 FL (7.4-10.4); PLATELET COUNT 96 /CUMM (130-400); RBC DISTRIBUTION WIDTH 20.7 % (11.5-14.5); RED BLOOD CELL CT 2.39 /CUMM (4.20-5.40); WHITE BLOOD CELL COUNT 2.9 /CUMM (4.8-10.8)
[2017-08-22 09:43] LABS: GRANULOCYTE % 12.6 % (42.2-75.2)
[2017-08-22 14:03] VITALS: BP 110/60
--- NOTE | 2017-08-22 19:02 | Discharge Summary ---
Visit Information Visit Dates Admission Date: 07/29/17 Discharge Date: 08/23/17 Hospital Course Course Attending Physician: Bere Marsh MD Primary Care Physician: Rio Combs MD Hospital Course: 86-year-old lady with past medical history significant for myelodysplastic syndrome and chronic anemia requiring blood transfusions, lupus on hydroxychloroquine and prednisone, GERD, hx of COPD, and hypertension who was brought to the hospital for evaluation of diarrhea and weakness. In the ER she was febrile to 102.4. She was guaiac negative. Laboratory data revealed a white blood cell count of 7000, with 25 segs and 12 bands, H&H 5.5 and 18, platelets 71,000, glucose 43, BUN/creatinine 17 and 0.7, potassium 2.6, lactic acid 3.2, calcium 4.8, with normal liver enzymes, troponin 0.11, proBNP 4350, INR 1.98/PTT 44. Urinalysis 5-10 RBCs/50-75 WBCs. Chest x-ray revealed increased interstitial markings. Problem List 1. Acute hypoxemic respiratory failure in the setting of emphsyema secondary interstial edema and continuing aspiration. She was initally on nasal cannula during her hospitalization she progressively worsened to require high flow and eventually bipap and back to high flow oxygen. She was diuresed with IV lasix daily till euvolemia was achieved and then discontinued. She was given stress dose steroids and maintained on IV Solu-Cortef 40 mg daily to avoid adrenal insufficiency due to history of chronic steroid use. However, patient continued to deteriorate and was deemed to have a very poor prognosis as she was unable to be weaned off high flow oxygen. She was eventually made comfort measures only (TRANSMISSION BUILDER) after multiple discussions with her family. Her antibiotics, blood draws and IV steriods were discontinued and she was kept pain free with IV morphine and scopolamine patches were used to dry secretions. Patient was eventually weaned off high flow oxygen and is saturating well on 3L of O2 via nasal canula. Family requested to change patient from TRANSMISSION BUILDER back to DNR/ DNI due to the marked recovery. 2. Sepsis likely due to pneumonia Pressors were never required and BP responded to fluids and steriods. Sputum cultures grew berger-sensitive Pseudomonas. ID was consulted. Initially treated with Vancomycin and ceftazidime. Vanco was discontinued after sensitivities returned and she completed the course of ceftazidime. She remained afebrile with resolution of her white count and bands. 3. Elevated troponins/Demand Ischemia Troponin peaked and trended down, attributed to demand ischemia given her comorbidities IV heparin was started and was later discontinued as she was noted to active nasal bleeding. 4. History of MDS/anemia/thrombocytopenia Initially DIC panel positive for very low Fibrinogen; repeated showed elevated fibrinogen. Heme/Onc were consulted and she was monitored for active bleeding. Patient was transfused a total of 2 units of PRBC and 1 unit of pooled platelet. 5. Bilateral lower extremity discoloration consistent with chronic venous insufficiency Because of her thrombocytopenia, she may have capillary bleeders on the skin causing some pain and worsening of discoloration. Doppler negative for DVTs. Asael bandage for legs recommended by vascular sugery but patient refused. 6. History of Lupus On hydroxychloroquine and prednisone 10 mg daily at home. Maintained on IV Solu- Cortef 40 mg daily. Can restart her home medications on discharge. 7. Malnutriton Low lenny score, was started on low rate of tube feeds via NGT due to inabilty to take enough nutrition orally. Oral intake now improved, NGT removed. 8. Deconditioning Patient has been bed bound for almost 1 month due to her illness and desaturationg on high flow oxygen. She requires intensive physical therapy. Complications: see hospital course Allergies: Coded Allergies: NO KNOWN ALLERGIES (06/06/15) Disposition Summary Disposition Principal Diagnosis: 1. Acute hypoxemic respiratory failure in the setting of emphsyema secondary interstial edema and continuing aspiration 2. Sepsis likely due to pneumonia Additional Diagnosis: 3. History of MDS/Anemia requiring blood transfusions 4. Elevated troponins likely from demand ischemia 5. History of Lupus 6. Malnutriton 7. Thrombocytopenia/DIC 6. Deconditioning Discharge Disposition: SNF Discharge Instructions General Discharge Information Code Status: Do Not Resucitate/Intubat Patient's Diet: Heart Healthy Diet, Puree solids, thin liquids Patient's Activity: As tolerated Follow-Up Instructions/Appts: Follow-up with your primary care phyisician within 1-2 weeks of discharge. Take all medications as directed. Dr. Thompson would like you to follow-up 1 week from discharge for continuing care of your MDS. Please follow-up 1 week from discharge with your paste plant supervisor for continuing care of your lupus. If you have worsening shortness of breath, chest pain, lightheadedness or loss of consciousness call your doctor or return to the ER. Medications at Discharge Discharge Medications: Stop taking the following medications: Atorvastatin Calcium (Lipitor) 40 MG TABLET ORAL DAILY Continue taking these medications: Hydroxychloroquine Sulfate (Hydroxychloroquine Sulfate) 200 MG TABLET 1 Tablet ORAL DAILY Qty = 60 Comments: Last Taken: 08/23/17 Time: 0915 AM Prednisone (Prednisone) 5 MG TABLET 1 Tablet ORAL TWICE DAILY Qty = 100 Instructions: Start taking on 08/30 after the taper is complete Comments: Cholecalciferol (Vitamin D3) (Vitamin D3) 2,000 UNIT TABLET 1 Tablet ORAL DAILY Comments: DID NOT ADMINISTER IN HOSPITAL Omeprazole Magnesium (Prilosec Otc) 20 MG TABLET.DR 1 20MG ORAL DAILY Comments: NOT TAKEN IN HOSPITAL Start taking the following new medications: Prednisone (Prednisone) 10 MG TABLET 10 Milligram ORAL DAILY Qty = 3 No Refills Instructions: 10 mg daily 08/28-08/30 5 mg daily starting 08/31/17 Prednisone (Prednisone) 10 MG TABLET 30 Milligram ORAL DAILY Qty = 6 No Refills Instructions: 30 mg daily 08/23-08/25 Comments: Last Taken: 08/23/17 Time: 0930 AM Prednisone (Prednisone) 20 MG TABLET 20 Milligram ORAL DAILY Qty = 3 No Refills Instructions: 20 mg daily 08/26-08/28 Lidocaine (Lidoderm) 5 % ADH..PATCH 1 Patch ON SKIN DAILY Qty = 10 No Refills Acetaminophen (Tylenol Extra Strength) 500 MG TABLET 1 Tablet ORAL THREE TIMES DAILY Qty = 10 No Refills The following medications have been changed: Old: Potassium Chloride (Potassium Chloride) 10 MEQ TABLET.ER 2 Tablet ORAL TWICE DAILY New: Potassium Chloride (Potassium Chloride) 10 MEQ TABLET.ER 1 Tablet ORAL TWICE DAILY Qty = 30 Comments: DID NOT ADMINISTER IN HOSPITAL Copies To: Lauryn PROCTOR,Rio Bain
[2017-08-22 23:04] VITALS: BP 128/60
[2017-08-23 06:38] VITALS: BP 118/52
--- NOTE | 2017-08-23 07:09 | PN- Housestaff ---
Margarito PROCTOR,Ruddy 08/23/17 0708: Subjective Follow-up For: Sepsis secondary to pneumonia , likely aspiration. Acute hypoxemic respiratory failure Demand ischemia Subjective: Patient was seen and examined at bedside. She is resting comfortably. She had no acute events overnight. There was a family meeting last night with the attending, nurse case management, patient and her family. Plan for discharge today was discussed. Patient's family requested that the primary team follow-up with Dr. Thompson and Dr. Kramer for recommendations for follow-up. Patient has no new complaints today. She continues to have a persistent cough. Review of Systems Constitutional: Reports: no symptoms. EENTM: Reports: no symptoms. Cardiovascular: Reports: no symptoms. Respiratory: Reports: cough, sputum production. Denies: hemoptysis, short of breath. Gastrointestinal: Reports: no symptoms. Genitourinary: Reports: no symptoms. Musculoskeletal: Reports: no symptoms. Skin: Reports: no symptoms. Objective Last 24 Hrs of Vital Signs/I&O Vital Signs Date Time Temp Pulse Resp B/P B/P Pulse O2 O2 Flow FiO2 Mean Ox Delivery Rate 08/23 0638 98.2 52 20 118/52 100 Nasal 3.0L Cannula 08/23 0000 Nasal 3.0L Cannula 08/22 2304 98.3 60 24 128/60 95 Nasal 3.0L Cannula 08/22 1600 92 Nasal 3.0L Cannula 08/22 1403 97.5 72 21 110/60 98 08/22 0949 Nasal 3.0L Cannula Intake & Output 08/23 0800 08/23 0000 08/22 1600 Intake Total 950 300 Output Total 325 175 Balance -325 775 300 Intake, Blood 350 Product Intake, IV 300 Intake, Oral 300 300 Output, Urine 325 175 Physical Exam General Appearance: Alert, Oriented X3, Cooperative, No Acute Distress Skin Temp/Moisture Exam: Warm/Dry HEENT: abrasion on the nose an lower lip, healing well Cardiovascular: Regular Rate, Normal S1, Normal S2 Lungs: scant rhonchi Abdomen: Normal Bowel Sounds, Soft, No Tenderness Neurological: Normal Speech, Normal Tone, Sensation Intact Extremities: diffuse ecchymoses of the BUEs Current Medications: Current Medications Sig/Zeb Start time Last Medication Dose Route Stop Time Status Admin Acetaminophen 600 MG Q6-PRN PRN 08/19 1030 AC 08/19 IV 1022 Albuterol Sulfate 3 ML Q4-PRN PRN 08/12 1715 DC 08 INH 0843 Atorvastatin Calcium 40 MG 1700 08/22 1700 CAN PO Atorvastatin Calcium 40 MG DAILY 08/22 1004 DC PO Benzocaine/Menthol 1 EVANGELIST Q2P PRN 08/14 1045 AC 08/22 PO 1224 Benzonatate 100 MG TID 08/18 1015 AC 08/22 PO 2052 Glycerin 2 SPRAY Q2P PRN 08/07 0830 DC 08/21 PO 1329 Guaifenesin 10 ML Q6P PRN 08/14 2230 DC 08/22 PO 0601 Hydroxychloroquine 200 MG DAILY 08/22 1005 AC 08/22 Sulfate PO 1144 Lidocaine 1 PAT DAILY@1300 08/17 1300 AC 08/21 EXT 0736 Melatonin 5 MG AT BEDTIME 08/13 2200 AC 08/22 PO 205 Morphine Sulfate 2 MG Q4 HRS NEEDED PRN 08/17 1415 AC 08/20 IV 1101 Pantoprazole Sodium 40 MG DAILY 07/30 2200 DC 08/22 IV 0952 Polyethylene Glycol 17 GM DAILY 08/17 1032 AC 08/22 PO 0950 Potassium Chloride 20 MEQ DAILY 08/23 1000 AC PO Potassium Chloride 40 MEQ ONCE ONE 08/22 1015 DC 08/22 PO 08/22 1016 1144 Prednisone 10 MG DAILY 08/28 1000 AC PO Prednisone 20 MG DAILY 08/25 1000 AC PO 08/28 0959 Prednisone 30 MG DAILY 08/22 1000 AC 08/22 PO 08/25 0959 0951 Prednisone 40 MG DAILY 08/19 1000 DC 08/21 PO 08/22 0959 0736 Scopolamine HBr 1 PAT Q72H 08/13 1100 DC 08/22 TOP 1147 Sodium Chloride 1,000 ML Q13H 08/22 1015 DC 08/22 IV 08/22 2314 1115 Sodium Chloride 2 SPRAY Q4P PRN 07/31 1715 DC 07/31 KRYSTYNA 1735 Last 24 Hrs of Lab/Red Results Last 24 Hrs of Labs/Mics: Laboratory Tests 08/22/17 0920: Anion Gap 9, Estimated GFR > 60, BUN/Creatinine Ratio 33.3 H, CBC w Diff MAN DIFF ORDERED, RBC 2.39 L, MCV 91.1, MCH 28.6, MCHC 31.4 L, RDW 20.7 H, MPV 9.2, Gran % 12.6 L, Lymphocytes % 61.7 H, Monocytes % 25.7 H, Eosinophils % 0 , Basophils % 0, Absolute Granulocytes 0.4 L, Segmented Neutrophils 9 L, Absolute Lymphocytes 1.8, Lymphocytes 85 H, Monocytes 6, Absolute Monocytes 0.8 H, Absolute Eosinophils 0, Absolute Basophils 0, Platelet Estimate DECREASED, Polychromasia 1+, Hypochromic-Microcytic 2+ Assessment/Plan Assessment: Patient is an 86-year-old female with a PMH significant for myelodysplastic syndrome with chronic anemia, lupus, GERD, COPD, HTN presented to the hospital with complaints of diarrhea and weakness. She had a prolonged stay in the ICU for treatment of sepsis, acute hypoxic respiratory failure and demand ischemia. She was transferred to [facility] floor on 08/13/17 after she was made comfort measures. Per family discussion on 08/22/17 patient was a DNR/DNI and was restarted on her home medications. Patient is stable for discharge with plans to go to [facility] short-term rehabilitation today #Lupus Per discussion with patient's blow up operator Dr. Kramer, patient was restarted on hydroxychloroquine -Patient to follow-up with Dr. Kramer on an as-needed basis based on patient's PCP recommendations as an outpaitent. #MDS Per discussion with patient's sugar boiler Dr. Thompson, patient should follow-up with him within 1 week of discharge, he may also follow up with patient and [facility]. #Chronic Anemia Patient's CBC was checked for the first time in 9 days yesterday and showed H/H 6.8/12.7. H/H responded appropriately to 1 unit PRBC transfusion #Hypokalemia -Restarted patient on daily potassium supplementation -We'll follow BEP #Acute hypoxemic respiratory failure Patient is now on 3 L of nasal cannula -Pulmonary recommendations appreciated #History of COPD TRC/nebs as needed oral steroids taper #protein calorie Malnutriton low lenny score continue PO diet Diet: regular puree diet, thin liquids DVT PPX: ALPS CODE STATUS: DNR/DNI Problem List: 1. Respiratory failure 2. Chronic anemia 3. MDS (myelodysplastic syndrome) 4. Lupus (systemic lupus erythematosus) Pain Ratin Pain Location: none Pain Goal: Remain pain free Pain Plan: pain pathway Tomorrow's Labs & Rationales: none Discharge Plan Discharge Disposition: STR/NH Stable for Discharge? Yes Anticipated Discharge (Day): today If Discharged Today/In 24 Hrs: enter antc discharge ord, W-10/discharge paper done, DC summary done, CMR done Bere Marsh MD 08/23/17 1056: Attending MD Review Statement Attending Statement Attending MD Statement: examined this patient, discuss w/resident/PA/SKI EDGE PAINTER, agreed w/resident/PA/SKI EDGE PAINTER, reviewed EMR data (avail) Attending Assessment/Plan: 86F PMH myelodysplastic syndrome requiring intermittent transfusions, SLE on Plaquenil and Prednisone, GERD, COPD, and HTN initially admitted to ICU with sepsis and acute hypoxemic respiratory failure secondary to bilateral pseudomonal pneumonia, made comfort measures and transferred to the medicine floor on high flow oxygen, placed on 3L NC on 08/21 and saturating well. Has been treated with Prednisone taper for adrenal insufficiency with steady vitals. Family decided to remove comfort measure status and resume treatment. Patient has no complaints today and feels well. She is saturating well on 3L NC. Received 1 unit pRBC on 08/22. 1. Sepsis (resolved) 2. Bilateral lower lobe pneumonia due to Pseudomonas (resolved) 3. 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 Acute hypoxemic respiratory failure 5. Deconditioning 6. Chronic anemia secondary to myelodysplastic syndrome 7. Hypokalemia Plan - Stable for discharge to STR - Check CBC in 1 week - Spoke with Dr. Thompson, who will see the patient in 1 week - Potassium 10mEq dialy - Continue home medications - Continue Prednisone taper
[2017-08-23] MEDS ORDERED: LIDODERM1 EACH EXT (08:45)
[2017-08-23] MEDS ORDERED: PREDNISONE10 M2 PO (08:45)
[2017-08-23] MEDS ORDERED: PREDNISONE20 M1 PO (08:45)
[2017-08-23] MEDS ORDERED: OFIRMEV1000 MG/10 IV (08:45)
[2017-08-23] MEDS ORDERED: MORPHINE SU4 MG/1 M2 IV (08:45)
--- NOTE | 2017-08-23 08:51 | Patient Discharge Instructions ---
Discharge Instructions General Discharge Information You were seen/treated for: Sepsis secondary to pneumonia Acute hypoxic respiratory failure Special Instructions: Follow-up with your primary care phyisician within 1-2 weeks of discharge. Take all medications as directed. Dr. Thompson would like you to follow-up 1 week from discharge for continuing care of your MDS. Please follow-up 1 week from discharge with your internal communications manager for continuing care of your lupus. Dr. Kramer will see you as needed once you have seen Dr. Combs. If you have worsening shortness of breath, chest pain, lightheadedness or loss of consciousness call your doctor or return to the ER. Diet Recommended Diet: Heart Healthy Activity Activity Self Limited: Yes Acute Coronary Syndrome Inclusion Criteria At DC or during hospital stay patient has or had the following: ACS DIAGNOSIS No Discharge Core Measures Meds if any: Prescribed or Continued at Discharge Meds if any: NOT Prescribed or Continued at Discharge Congestive Heart Failure Inclusion Criteria At DC or during hospital stay patient has or had the following: CHF DIAGNOSIS No Discharge Core Measures Meds if any: Prescribed or Continued at Discharge Meds if any: NOT Prescribed or Continued at Discharge Cerebrovascular accident Inclusion Criteria At DC or during hospital stay patient has or had the following: CVA/TIA Diagnosis No Discharge Core Measures Meds if any: Prescribed or Continued at Discharge Meds if any: NOT Prescribed or Continued at Discharge Venous thromboembolism Inclusion Criteria VTE Diagnosis No VTE Type NONE VTE Confirmed by (Test) NONE Discharge Core Measures - Per Current guidelines, there needs to be overlap - treatment for the first 5 days of Warfarin therapy. - If discharged on Warfarin prior to 5 days of - overlap therapy, the patient will need to be - assessed for post discharge needs including - *Post discharge parental anticoagulation - *Warfarin and/or parental anticoagulation education - *Follow up date to check INR post discharge At least 5 days overlap therapy as Inpatient No Meds if any: Prescribed or Continued at Discharge Note: Overlap Therapy is Warfarin and Anticoagulant Meds if any: NOT Prescribed or Continued at Discharge
[2017-08-23] MEDS ORDERED: POTASSIUM CHLO10 ME4 PO (09:15)
[2017-08-23] MEDS ORDERED: TYLENOL EXTRA500 M2 PO (09:15)
[2017-08-23 09:35] LABS: ABSOLUTE BASOPHIL COUNT 0 /CUMM (0.0-0.2); ABSOLUTE EOSINOPHIL COUNT 0 /CUMM (0.0-0.7); ABSOLUTE GRANULOCYTE CT 0.3 /CUMM (1.4-6.5); ABSOLUTE LYMPH COUNT 2.2 /CUMM (1.2-3.4); ABSOLUTE MONOCYTE COUNT 0.4 /CUMM (0.10-0.60); BASOPHIL % 0 % (0.0-2.0); EOSINOPHIL % 0 % (0-5); GRANULOCYTE % 11.7 % (42.2-75.2); HEMATOCRIT 25.7 % (37-47); MEAN CORPUSCULAR HGB CONC 32.7 G/DL (33.0-37.0); MEAN CORPUSCULAR VOLUME 91.7 FL (81.0-99.0); MEAN PLATELET VOLUME 9.4 FL (7.4-10.4); WHITE BLOOD CELL COUNT 2.9 /CUMM (4.8-10.8)
[2017-08-23 11:15] LABS: PLATELET COUNT 76 /CUMM (130-400)
[2017-08-23 11:37] VITALS: BP 118/52
== END 2017-08-23 13:07 | DRG 871 ==
LOC: ERH 12:27 → 2NA 14:29 → ERHI 14:29 → CRI 14:29 → ENRESERV 16:18 → ENTRNSPT 17:04 → EDTRNSPT 17:06 → EDTRNSPTSTS 17:06 → EDTRNSPT 17:23 → CRI 17:25 → CMPTRNSPT 17:44 → CRI 17:50 → ENTRNSPT 08-13 11:38 → EDTRNSPTSTS 08-13 12:48 → CMPTRNSPT 08-13 13:09 → 2NA 08-13 13:11 → CMPTRNSPT 08-13 13:15 → 2NA 08-13 14:10
PROVIDERS: Dermatology; Internal Medicine; Internal Medicine Critical Care Medicine; Internal Medicine Interventional Cardiology; Physician Assistant Medical; Student in an Organized Health Care Education/Training Program
PROC: 30233N1 Transfusion of Nonautologous Red Blood Cells into Peripheral Vein, Percutaneous Approach (ICD-10-PCS; principal; 2017-07-29)
PROC: 5A09457 Assistance with Respiratory Ventilation, 24-96 Consecutive Hours, Continuous Positive Airway Pressure (ICD-10-PCS; 2017-08-05)
DX: A41.52 Sepsis due to Pseudomonas (principal); J96.01 Acute respiratory failure with hypoxia; J69.0 Pneumonitis due to inhalation of food and vomit; D65 Disseminated intravascular coagulation [defibrination syndrome]; J15.1 Pneumonia due to Pseudomonas; E27.3 Drug-induced adrenocortical insufficiency; D61.818 Other pancytopenia; E46 Unspecified protein-calorie malnutrition; I24.8 Other forms of acute ischemic heart disease; E87.2 Acidosis; Z68.1 Body mass index [BMI] 19.9 or less, adult; J44.0 Chronic obstructive pulmonary disease with (acute) lower respiratory infection; M32.9 Systemic lupus erythematosus, unspecified; I48.0 Paroxysmal atrial fibrillation; E83.51 Hypocalcemia; D46.9 Myelodysplastic syndrome, unspecified; Z51.5 Encounter for palliative care; Z66 Do not resuscitate; K21.9 Gastro-esophageal reflux disease without esophagitis; R32 Unspecified urinary incontinence; E87.6 Hypokalemia; E16.2 Hypoglycemia, unspecified; I87.2 Venous insufficiency (chronic) (peripheral); I10 Essential (primary) hypertension; T38.0X5A Adverse effect of glucocorticoids and synthetic analogues, initial encounter; E78.5 Hyperlipidemia, unspecified; Z79.52 Long term (current) use of systemic steroids; Z87.891 Personal history of nicotine dependence
CPT/HCPCS: 2NAP; CCU; 36415; 36592; 71045; 74018; 74176; 74230; 81001; 82436; 86920; 87040; 87070; 87086; 87449; 87450; 87804; 87804-59; 93005; 93010; 93306; 93970; 96361; 96365; 96366; 96374; 96375; 97112-GO; 97162-GP; 97166-GO; 99291; J0131; J0456; J0610; J0696; J0713; J1644; J1720; J1940; J2405; J2920; J3370; J3490; J7042; J7060; J7512; P9016; P9031

== ENCOUNTER 2017-10-14 20:07 | Inpatient (IN) | payer OTHER, MEDICARE ==
[~2017-10-14] VITALS: Ht 147.3 cm; Wt 39.5 kg
[~2017-10-14 20:07] MED LIST changes: +LIDODERM1 EACH EXT; +MORPHINE SU4 MG/1 M2 IV; +OFIRMEV1000 MG/10 IV; +PREDNISONE10 M2 PO; +PREDNISONE20 M1 PO; +TYLENOL EXTRA500 M2 PO
--- NOTE | 2017-10-14 20:22 | ED GENERAL ADULT ---
History of Present Illness General Chief Complaint: General Adult Stated Complaint: BIBA, WEAKNESS Source: patient, family, old records, EMS Exam Limitations: confusion Vital Signs & Intake/Output Vital Signs & Intake/Output Vital Signs Date Time Temp Pulse Resp B/P B/P Pulse O2 O2 Flow FiO2 Mean Ox Delivery Rate 10/15 0019 98.5 104 20 100/48 94 Nasal 3.0L Cannula 10/14 2322 99.1 10/14 2303 99.1 114 20 90/44 95 Nasal 2.0L Cannula 10/14 2206 103.0 116 24 95 Nasal 3.0L Cannula 10/14 2053 99.1 125 26 106/51 95 Nasal 3.0L Cannula ED Intake and Output 10/15 0000 10/14 1200 Intake Total 2000 Output Total Balance 1999 Intake, IV 2000 Intake, Oral 0 Patient 87 lb 0.02 oz Weight Weight Reported by Patient Measurement Method Allergies Coded Allergies: NO KNOWN ALLERGIES (06/06/15) Reconcile Medications Acetaminophen (Tylenol Extra Strength) 500 MG TABLET 1 TAB PO TID Pain Cholecalciferol (Vitamin D3) (Vitamin D3) 2,000 UNIT TABLET 1 TAB PO DAILY VITAMIN SUPPORT (Reported) Hydroxychloroquine Sulfate 200 MG TABLET 1 TAB PO DAILY LUPUS (Reported) Lidocaine (Lidoderm) 5 % ADH..PATCH 1 PAT EXT DAILY@1300 pain Omeprazole Magnesium (Prilosec Otc) 20 MG TABLET.DR 1 20MG PO DAILY ACID REFLUX (Reported) Potassium Chloride 10 MEQ TABLET.ER 1 TAB PO BID SUPPLEMENT Prednisone 5 MG TABLET 1 TAB PO BID LUPUS (Reported) Start taking on 08/30 after the taper is complete Prednisone 10 MG TABLET 10 MG PO DAILY steroid taper 10 mg daily 08/28-08/30 5 mg daily starting 08/31/17 Prednisone 10 MG TABLET 30 MG PO DAILY Steroid taper 30 mg daily 08/23-08/25 Prednisone 20 MG TABLET 20 MG PO DAILY steroid taper 20 mg daily 08/26-08/28 Triage Nurses Notes Reviewed? yes HPI: Patient is released from short-term rehabilitation approximately one week ago. The physical therapist was at her house today and noticed her to be more lethargic than normal and also that her oxygen level was low. The physical therapist did not tell the family what the oxygen level was. This evening the patient became confused. This was very unusual for the patient so the family brought her in by ambulance for evaluation. Patient is currently alert and oriented 3 however she has to really stop to think about answers. Past History Travel History Traveled to [place] past 21 day No Medical History Any Pertinent Medical History? see below for history Neurological: NONE EENT: NONE Cardiovascular: hypertension, hyperlipidemia Respiratory: COPD Gastrointestinal: GERD (dependent on OTC Prilosec xyrs) Hepatic: NONE Renal: urinary incontinence Musculoskeletal: degen joint disease, falls, SLE Psychiatric: NONE Endocrine: osteopenia Blood Disorders: anemia, MYELODYSPLASIA Cancer(s): NONE SERGEANT OF CORRECTIONS/Reproductive: NONE History of MRSA: No History of VRE: No History of CDIFF: No Influenza Vaccine: 04/10/17 Surgical History Surgical History: SKIN GRAFT RIGHT LEG POST FALL Psychosocial History Who do you live with Significant Other Services at Home None What is your primary language Kiswahili Tobacco Use: Never used ETOH Use: denies use Illicit Drug Use: denies illicit drug use Family History Family History, If Any: FATHER (Hx "liver ca" (? if primary vs. met); non-cirrhotic.). , Age 60+ ; Cause: Postoperative complication. MOTHER, , Age 60+; Cause: Unknown cause of morbidity or mortality. SON, , Age 30-40; Cause: MVA (motor vehicle accident). Hx Contributory? No Review of Systems Review of Systems Constitutional: Reports: see HPI, chills, fever. EENTM: Reports: no symptoms. Respiratory: Reports: see HPI. Cardiovascular: Reports: no symptoms. GI: Reports: no symptoms. Genitourinary: Reports: no symptoms. Musculoskeletal: Reports: no symptoms. Skin: Reports: no symptoms. Neurological/Psychological: Reports: see HPI, confusion. Hematologic/Endocrine: Reports: no symptoms. Immunologic/Allergic: Reports: no symptoms. All Other Systems: Reviewed and Negative Physical Exam Physical Exam General Appearance: well developed/nourished, alert, awake, mild distress Head: atraumatic, normal appearance Eyes: Bilateral: PERRL, EOMI. Ears, Nose, Throat: normal pharynx, normal ENT inspection, hearing grossly normal Neck: normal inspection, supple, full range of motion Respiratory: normal breath sounds, chest non-tender, no respiratory distress, lungs clear Cardiovascular: normal peripheral pulses, tachycardia Gastrointestinal: normal bowel sounds, soft, non-tender, no organomegaly Back: normal inspection, normal range of motion Extremities: normal inspection, normal capillary refill, normal range of motion, no edema Neurologic/Psych: no motor/sensory deficits, awake, alert, oriented x 3, normal gait, normal mood/affect Skin: intact, normal color Core Measures ACS in differential dx? No CVA/TIA Diagnosis: No Sepsis Present: Yes Sepsis Focused Exam Completed? Yes ED Sepsis Exam Date of Focused Sepsis Exam: 10/14/17 Time of Focused Sepsis Exam: 2029 Sepsis Cardiac Exam: Tachycardia Sepsis Resp Exam: CTA Sepsis Cap Refill Exam: <2 Sec Sepsis Peripheral Pulse Exam: Normal Sepsis Peripheral Pulse Location: Radial Sepsis Skin Color Exam: Normal for Ethnicity Skin Temp/Moisture Exam: Hot/Dry Progress Differential Diagnoses I considered the following diagnoses in my evaluation of the patient: [SEPSIS, PNEUMONIA, UTI, ANEMIA,ELECTROLYTE ABNORMALITY, AMI] Plan of Care: Orders Procedure Date/time Status LACTIC ACID 10/14 2320 Complete RAPID VIRAL INFLUENZA A 10/14 2204 Complete Telemetry/Platform Inspector 10/14 2020 Active CULTURE,URINE 10/14 2020 Active BLOOD CULTURE 10/14 2020 Active URINALYSIS 10/14 2020 Complete TROPONIN LEVEL 10/14 2020 Complete LACTIC ACID 10/14 2020 Complete COMPREHENSIVE METABOLIC PANEL 10/14 2020 Complete CBC WITHOUT DIFFERENTIAL 10/14 2020 Complete EKG 10/14 2020 Active Laboratory Tests 10/14/17 2330: Lactic Acid 1.2 10/14/172124: Urine Color YEL, Urine Clarity CLEAR, Urine pH 7.5, Ur Specific [place] 1.020, Urine Protein TRACE H, Urine Ketones NEG, Urine Nitrite NEG, Urine Bilirubin NEG, Urine Urobilinogen 0.2, Ur Leukocyte Esterase NEG, Ur Microscopic SEDIMENT EXAMINED, Urine RBC RARE, Urine WBC RARE, Ur Epithelial Cells RARE, Urine Bacteria RARE H, Urine Mucus RARE, Urine Hemoglobin NEG, Urine Glucose NEG 10/14/172022: Anion Gap 15, Estimated GFR > 60, BUN/Creatinine Ratio 22.5, Glucose 100 H, Lactic Acid 4.5 H, Calcium 9.0, Total Bilirubin 0.5, AST 20, ALT 18, Alkaline Phosphatase 128 H, Troponin I < 0.01, Total Protein 7.7, Albumin 3.4 L, Globulin 4.3 H, Albumin/Globulin Ratio 0.8 L, CBC w Diff NO MAN DIFF REQ, RBC 2.43 L, MCV 90.7, MCH 28.7, MCHC 31.7 L, RDW 24.1 H, MPV 8.9, Gran % 64.5, Lymphocytes % 18.9 L, Monocytes % 16.6 H, Eosinophils % 0, Basophils % 0, Absolute Granulocytes 2.7, Absolute Lymphocytes 0.8 L, Absolute Monocytes 0.7 H, Absolute Eosinophils 0, Absolute Basophils 0 Microbiology 10/14 2230 NASOPHARYN: Influenza Virus A & B Rapid Smear - COMP 10/14 2157 BLOOD: Blood Culture - RECD 10/14 2124 URINE ROUT: Urine Culture - RECD 10/14 2022 BLOOD: Blood Culture - RECD Diagnostic Imaging: Viewed by Me: Radiology Read. Discussed w/RAD: Radiology Read. Radiology Impression: PATIENT: GRUPO HOANG PRESENT AGE : 86 PATIENT ACCOUNT NO: [id number] : 29 LOCATION: [facility] ORDERING PHYSICIAN: Ruddy Delarosa MD SERVICE DATE: 10/14/17 EXAM TYPE: CAT - CT ABD & PELVIS W IV CONTRAST; CT CHEST W IV CONTRAST EXAMINATION: CT CHEST WITH CONTRAST CT ABDOMEN AND PELVIS WITH CONTRAST CLINICAL INFORMATION: Sepsis. COMPARISON: 07/31/2017 TECHNIQUE: Multidetector volumetric imaging was performed through the chest, abdomen and pelvis following the administration of 95 mL of Optiray 320 intravenous contrast. Sagittal and coronal reformatted images were obtained on the technologist's workstation. Axial MIP volume rendering provided. DLP: 300 mGy-cm. FINDINGS: CHEST: Lungs: The central airways are patent. There is severe emphysema, greatest in the upper lobes with centrilobular and paraseptal components. There is bibasilar patchy opacity, left greater than right. Additional patchy opacity in the lingula at the base. Prominent interlobular septal thickening. This is similar to prior. No significant pleural effusion. No pneumothorax. Mediastinum: The heart is normal in size. No pericardial effusion. Small mediastinal lymph nodes are present, which are similar to prior. No pathologic enlargement. Chest Wall/Axilla: No lymphadenopathy. No chest wall mass. ABDOMEN/PELVIS: Liver, Gallbladder, Biliary Tree: The liver is normal in size, shape, and attenuation. No focal hepatic lesion or biliary ductal dilatation is present. The gallbladder is unremarkable with no evidence of radiopaque gallstones, gallbladder wall thickening, or pericholecystic inflammatory changes. Pancreas: Unremarkable. Spleen: Unremarkable. Adrenal Glands: Unremarkable. Kidneys and Ureters: The kidneys are normal in size, shape, and attenuation. No hydronephrosis, hydroureter or calculi seen. No perinephric stranding. Bladder: Unremarkable. Gastrointestinal Tract: The stomach is unremarkable. The small bowel is normal in caliber. There is no obstruction. No colonic wall thickening or inflammatory change. No free air or free fluid. The appendix is unremarkable. Abdominal Wall: No hernia is demonstrated. Lymphovascular Structures: Lymph nodes: Normal. Vascular: Normal caliber aorta with moderate atherosclerotic calcifications. Pelvic Viscera: Pessary in place. No adnexal mass. OSSEOUS STRUCTURES: No suspicious sclerotic or lytic bone lesions are identified. Scoliotic curvature of the spine. Multilevel degenerative changes. Mild degenerative changes of the hips. IMPRESSION: 1. Patchy opacities at the lung bases, particularly at the left base. This could represent atelectasis or pneumonia. 2. Severe emphysema. There is interlobular septal thickening which may be chronic, although superimposed mild edema is possible. 3. No acute inflammatory changes of the abdomen or pelvis. DICTATED BY: Bolivar Garcia MD DATE/TIME DICTATED:10/15/17 TABLE SAW OPERATOR:CHUY DATE/TIME TRANSCRIBED:10/15/17 CONFIDENTIAL, DO NOT COPY WITHOUT APPROPRIATE AUTHORIZATION. <Electronically signed in Other Vendor System> SIGNED BY: Bolivar Garcia MD 10/15/17 0020 CXR Impression: PATIENT: GRUPO HOANG PRESENT AGE: 86 PATIENT ACCOUNT NO: [id number] : 29 LOCATION: [facility] ORDERING PHYSICIAN: Ruddy Delarosa MD SERVICE DATE: 10/14/17 EXAM TYPE: RAD - XRY- PORTABLE CHEST XRAY EXAMINATION: XR PORTABLE CHEST CLINICAL INFORMATION: Fever and confusion COMPARISON: 08/06/2017 and 08/10/2017 TECHNIQUE: Portable frontal view of the chest was obtained. FINDINGS: Interval improvement compared to the prior chest radiographs. Chronic pulmonary emphysema and apparent chronic thickening of the bronchial castro, as well. Patchy groundglass opacities previously observed within the right mid and lower lung appear resolved. No new pulmonary infiltrates. No pneumothorax or pleural effusion. Cardiac silhouette is normal in size. Atherosclerotic calcification of the aorta. Skeletal findings include multiple old left-sided rib fractures. IMPRESSION: 1. Chronic obstructive pulmonary disease. 2. No new pulmonary findings compared to 2017. In fact, there is interval improvement, with apparent resolution of the previously noted groundglass pulmonary opacities. DICTATED BY: Nick Swain MD DATE/TIME DICTATED:10/14/172101 TABLE SAW OPERATOR:CHUY DATE/TIME TRANSCRIBED:10/14/172101 CONFIDENTIAL, DO NOT COPY WITHOUT APPROPRIATE AUTHORIZATION. <Electronically signed in Other Vendor System> SIGNED BY: Nick Swain MD 10/14/172108 Initial ED EKG: S TACH, NSSTT CHANGES, NO CHANGE FROM PRIOR Prior EKG: unchanged Rhythm Strip: sinus tachycardia Comments: Patient's blood pressure has dropped however it is not responding to IV fluid. Departure Departure Disposition: STILL A PATIENT Condition: Guarded Clinical Impression Primary Impression: Sepsis Referrals: Lauryn PROCTOR,[place] (PCP/Family) Departure Forms: Customer Survey General Discharge Information Admission Note Spoke With: Danita Salamanca MD Documentation of Exam: Documentation of any treatments & extenuating circumstances including Concerns Regarding Discharge (functional status, medication knowledge or non-compliance, living conditions, etc.) that warrant an admission rather than observation: [IV FLUIDS, FOLLOWUP CULTURES, ID CONSULT, HEMATOLOGY CONSULT, BROPAD SPECTRUM ABX] Critical Care Note Critical Care Note Critical Care Time: mins: (90 MIN)
[2017-10-14 20:44] LABS: ABSOLUTE BASOPHIL COUNT 0 /CUMM (0.0-0.2); ABSOLUTE EOSINOPHIL COUNT 0 /CUMM (0.0-0.7); ABSOLUTE GRANULOCYTE CT 2.7 /CUMM (1.4-6.5); ABSOLUTE LYMPH COUNT 0.8 /CUMM (1.2-3.4); ABSOLUTE MONOCYTE COUNT 0.7 /CUMM (0.10-0.60); BASOPHIL % 0 % (0.0-2.0); EOSINOPHIL % 0 % (0-5); MEAN CORPUSCULAR HGB 28.7 PG (27.0-31.0); MEAN CORPUSCULAR HGB CONC 31.7 G/DL (33.0-37.0); MEAN CORPUSCULAR VOLUME 90.7 FL (81.0-99.0); MEAN PLATELET VOLUME 8.9 FL (7.4-10.4); PLATELET COUNT 186 /CUMM (130-400); RBC DISTRIBUTION WIDTH 24.1 % (11.5-14.5); RED BLOOD CELL CT 2.43 /CUMM (4.20-5.40); WHITE BLOOD CELL COUNT 4.2 /CUMM (4.8-10.8)
[2017-10-14 20:48] LABS: GRANULOCYTE % 64.5 % (42.2-75.2)
--- NOTE | 2017-10-14 21:09 | RADIOLOGY REPORT ---
EXAMINATION: XR PORTABLE CHEST CLINICAL INFORMATION: Fever and confusion COMPARISON: 08/06/2017 and 08/10/2017 TECHNIQUE: Portable frontal view of the chest was obtained. FINDINGS: Interval improvement compared to the prior chest radiographs. Chronic pulmonary emphysema and apparent chronic thickening of the bronchial castro, as well. Patchy groundglass opacities previously observed within the right mid and lower lung appear resolved. No new pulmonary infiltrates. No pneumothorax or pleural effusion. Cardiac silhouette is normal in size. Atherosclerotic calcification of the aorta. Skeletal findings include multiple old left-sided rib fractures. IMPRESSION: 1. Chronic obstructive pulmonary disease. 2. No new pulmonary findings compared to 08/10/2017. In fact, there is interval improvement, with apparent resolution of the previously noted groundglass pulmonary opacities.
[2017-10-15] VITALS (8 sets, daily range): BP systolic 94–118; BP diastolic 48–99
--- NOTE | 2017-10-15 00:20 | CT SCAN REPORT ---
EXAMINATION: CT CHEST WITH CONTRAST CT ABDOMEN AND PELVIS WITH CONTRAST CLINICAL INFORMATION: Sepsis. COMPARISON: 07/31/2017 TECHNIQUE: Multidetector volumetric imaging was performed through the chest, abdomen and pelvis following the administration of 95 mL of Optiray 320 intravenous contrast. Sagittal and coronal reformatted images were obtained on the technologist's workstation. Axial MIP volume rendering provided. DLP: 300 mGy-cm. FINDINGS: CHEST: Lungs: The central airways are patent. There is severe emphysema, greatest in the upper lobes with centrilobular and paraseptal components. There is bibasilar patchy opacity, left greater than right. Additional patchy opacity in the lingula at the base. Prominent interlobular septal thickening. This is similar to prior. No significant pleural effusion. No pneumothorax. Mediastinum: The heart is normal in size. No pericardial effusion. Small mediastinal lymph nodes are present, which are similar to prior. No pathologic enlargement. Chest Wall/Axilla: No lymphadenopathy. No chest wall mass. ABDOMEN/PELVIS: Liver, Gallbladder, Biliary Tree: The liver is normal in size, shape, and attenuation. No focal hepatic lesion or biliary ductal dilatation is present. The gallbladder is unremarkable with no evidence of radiopaque gallstones, gallbladder wall thickening, or pericholecystic inflammatory changes. Pancreas: Unremarkable. Spleen: Unremarkable. Adrenal Glands: Unremarkable. Kidneys and Ureters: The kidneys are normal in size, shape, and attenuation. No hydronephrosis, hydroureter or calculi seen. No perinephric stranding. Bladder: Unremarkable. Gastrointestinal Tract: The stomach is unremarkable. The small bowel is normal in caliber. There is no obstruction. No colonic wall thickening or inflammatory change. No free air or free fluid. The appendix is unremarkable. Abdominal Wall: No hernia is demonstrated. Lymphovascular Structures: Lymph nodes: Normal. Vascular: Normal caliber aorta with moderate atherosclerotic calcifications. Pelvic Viscera: Pessary in place. No adnexal mass. OSSEOUS STRUCTURES: No suspicious sclerotic or lytic bone lesions are identified. Scoliotic curvature of the spine. Multilevel degenerative changes. Mild degenerative changes of the hips. IMPRESSION: 1. Patchy opacities at the lung bases, particularly at the left base. This could represent atelectasis or pneumonia. 2. Severe emphysema. There is interlobular septal thickening which may be chronic, although superimposed mild edema is possible. 3. No acute inflammatory changes of the abdomen or pelvis.
--- NOTE | 2017-10-15 00:50 | History & Physical ---
ScottPratibha 10/15/17 0044: General Information and HPI MD Statement: I have seen and personally examined GRUPO HOANG and documented this H&P. The patient is a 86 year old F who presented with a patient stated chief complaint of [weakness]. Source of Information: patient, family, old records, EMS Exam Limitations: no limitations History of Present Illness: Ms. Hoang is a 86yo F w/ PMH of COPD w/ 2L nocturnal O2, HLD, HTN, Myelodysplasia w/ injection of Darbipoient every other week (due tomorrow), lupus x 2yr on hydroxychloroquine 200mg daily and prednisone 10, GERD, DJD, recent discharge from rehab presented to ER w/ CC of increasing lethargy while being visited by HPT, and confusion at evening that she was then BIBA to ER. no lightheadness/ syncope/fever/chills/chest pain/SOB/Diarrhea/Constipation/appetite/swallow difficulty. At baseline patient was ambulating w/ walker at home, and being taken care by the daughter on cooking/daily activities. Patient was last seen in the hospital in August, treated for sepsis secondary to pneumonia with positive sputum culture of Pseudomonas, however negative blood cultures, demand ischemia with elevated troponin, and was later discharged to rehab where she underwent physical therapy, and then discharged home a week prior to this admission. During our clinical interaction, patient denied fever/night sweat/weight change/ cough/SOB/Chest Pain/Palpitation/exercise intolerance/Abdominal pain/bowel movement/urinary abnormality, or other skin/musculoskeletal/neurological disorders/mood change/insomnia/dietary/appetite change. -Smoking: never a smoker -Alcohol: denies -Rec Drugs: denies Allergies/Medications Allergies: Coded Allergies: NO KNOWN ALLERGIES (06/06/15) Home Med list Acetaminophen (Tylenol Extra Strength) 500 MG TABLET 1 TAB PO TID Pain Cholecalciferol (Vitamin D3) (Vitamin D3) 2,000 UNIT TABLET 1 TAB PO DAILY VITAMIN SUPPORT (Reported) Hydroxychloroquine Sulfate 200 MG TABLET 1 TAB PO DAILY LUPUS (Reported) Lidocaine (Lidoderm) 5 % ADH..PATCH 1 PAT EXT DAILY@1300 pain Omeprazole Magnesium (Prilosec Otc) 20 MG TABLET.DR 1 20MG PO DAILY ACID REFLUX (Reported) Potassium Chloride 10 MEQ TABLET.ER 1 TAB PO BID SUPPLEMENT Prednisone 5 MG TABLET 1 TAB PO BID LUPUS (Reported) Start taking on 08/30 after the taper is complete Prednisone 10 MG TABLET 10 MG PO DAILY steroid taper 10 mg daily 08/28-08/30 5 mg daily starting 08/31/17 Prednisone 10 MG TABLET 30 MG PO DAILY Steroid taper 30 mg daily 08/23-08/25 Prednisone 20 MG TABLET 20 MG PO DAILY steroid taper 20 mg daily 08/26-08/28 Past History Travel History Traveled to [place] past 21 day No Medical History Neurological: NONE EENT: NONE Cardiovascular: hypertension, hyperlipidemia Respiratory: COPD Gastrointestinal: GERD (dependent on OTC Prilosec xyrs) Hepatic: NONE Renal: urinary incontinence Musculoskeletal: degen joint disease, falls, SLE Psychiatric: NONE Endocrine: osteopenia Blood Disorders: anemia, MYELODYSPLASIA Cancer(s): NONE [employer]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 if primary vs. met); non-cirrhotic.). , Age 60+ ; Cause: Postoperative complication. MOTHER, , Age 60+; Cause: Unknown cause of morbidity or mortality. SON, , Age 30-40; Cause: MVA (motor vehicle accident). Psychosocial History Who Do You Live With? spouse (in law apt next to dtr), self Services at Home: None Primary Language: Martiniquais ETOH Use: denies use Illicit Drug Use: denies illicit drug use Living Will? no Power of Orbitread Operator/HCP? no Functional Ability ADLs Independent: dressing, eating, toileting, bathing. Ambulation: cane IADLs Independent: shopping, housework, finances, food prep, telephone, transportation , medication admin. Review of Systems Review of Systems Constitutional: Reports: see HPI. Exam & Diagnostic Data Last 24 Hrs of Vital Signs/I&O Vital Signs Date Time Temp Pulse Resp B/P B/P Pulse O2 O2 Flow FiO2 Mean Ox Delivery Rate 10/15 0019 98.5 104 20 100/48 94 Nasal 3.0L Cannula 10/142 99.1 10/143 99.1 114 20 90/44 95 Nasal 2.0L Cannula 05/07 2206 103.0 116 24 95 Nasal 3.0L Cannula 10/14 2052 99.1 125 26 106/51 95 Nasal 3.0L Cannula Intake & Output 10/15 0800 10/15 0000 10/15 1599 Intake Total 1999 Output Total Balance 1999 Intake, IV 1999 Intake, Oral 0 Patient 39.463 kg Weight Weight Reported by Patient Measurement Method Physical Exam General Appearance Alert, Oriented X3, Cooperative, No Acute Distress Skin large bruised likely chronic skin changes in BUEs and BLEs Skin Temp/Moisture Exam: Warm/Dry Sepsis Skin Exam (color): Normal for Ethnicity HEENT Atraumatic, PERRLA Neck Supple Cardiovascular Regular Rate, tachycardia Lungs Normal Air Movement, limited auscultation due to body habitus, fainted crackles/rhonchi on R lung Abdomen Normal Bowel Sounds, Soft, No Tenderness Neurological decreased strength 3/5 BLEs normal 5/5 BUEs Extremities No Tenderness/Swelling, BLE chronic skin discoloration due to venous insufficiency Last 24 Hrs of Labs/Red: Laboratory Tests 10/14/17 2330: Lactic Acid 1.2 10/14/172124: Urine Color YEL, Urine Clarity CLEAR, Urine pH 7.5, Ur Specific [place] 1.020, Urine Protein TRACE H, Urine Ketones NEG, Urine Nitrite NEG, Urine Bilirubin NEG, Urine Urobilinogen 0.2, Ur Leukocyte Esterase NEG, Ur Microscopic SEDIMENT EXAMINED, Urine RBC RARE, Urine WBC RARE, Ur Epithelial Cells RARE, Urine Bacteria RARE H, Urine Mucus RARE, Urine Hemoglobin NEG, Urine Glucose NEG 10/14/172022: Anion Gap 15, Estimated GFR > 60, BUN/Creatinine Ratio 22.5, Glucose 100 H, Lactic Acid 4.5 H, Calcium 9.0, Total Bilirubin 0.5, AST 20, ALT 18, Alkaline Phosphatase 128 H, Troponin I < 0.01, Total Protein 7.7, Albumin 3.4 L, Globulin 4.3 H, Albumin/Globulin Ratio 0.8 L, CBC w Diff NO MAN DIFF REQ, RBC 2.43 L, MCV 90.7, MCH 28.7, MCHC 31.7 L, RDW 24.1 H, MPV 8.9, Gran % 64.5, Lymphocytes % 18.9 L, Monocytes % 16.6 H, Eosinophils % 0, Basophils % 0, Absolute Granulocytes 2.7, Absolute Lymphocytes 0.8 L, Absolute Monocytes 0.7 H, Absolute Eosinophils 0, Absolute Basophils 0 Microbiology 10/14 2229 NASOPHARYN: Influenza Virus A & B Rapid Smear - COMP 10/14 2157 BLOOD: Blood Culture - RECD 10/14 2124 URINE ROUT: Urine Culture - RECD 10/14 2022 BLOOD: Blood Culture - RECD Diagnostic Data EKG Results Sinus tachycardia w/o ST-T changes Assessment/Plan Assessment: On admission, Vitals: T-max 103, now afebrile, 106/51 on presentation dropped to 90/44 now increased to 100/48 after bolus, tachycardia above 100, RR 20, 95% on the nasal cannula 2 L -CBC: WBC 4.2, H/H7 0.0/22.0 in process of blood transfusion, PLT 186 -BMP: Lactic acidosis 4.5, decreased to 1.2 after bolus, troponin negative, alk phos 128, -UA/Microbiology: Trace bacteria, 1. Patchy opacities at the lung bases, particularly at the left base. This could represent atelectasis or pneumonia. 2. Severe emphysema. There is interlobular septal thickening which may be chronic, although superimposed mild edema is possible. 3. No acute inflammatory changes of the abdomen or pelvis. -EKG: Sinus tachycardia w/o significant ST-T abnormalities. -Interventions in ER: Problem list & Assessment: Patient presented with a clinical picture of pneumonia with imaging evidence of opacities on chest CT, and severe sepsis secondary to infection. Patient's pneumonia was likely hospital associated to the previous admissions and recent rehab discharge. Patient was resuscitated on fluids in the ER, and now stable with blood pressure, however still remain tachycardia possibly due to volume status and/or chronic anemic state. Patient was placed on 2 L oxygen for her COPD and/or anemia. Pending transfusion. Patient had previous echo showing EF of 40%, however less likely due to previous septic episodes causing a demand ischemia with decreased ejection fraction. Patient denies any carrier packer with its/cardiac history and denies heart failure. Patient had a risk of aspiration, however likely to be low due to no history of swallowing difficulty/syncope/lightheadedness per patient and per daughter during the past week, and was normal eating/drinking/appetite. #Severe (hypotension, tachycardia, lactic acidosis) secondary to pneumonia #Pneumonia, likely HCAP #chronic anemia secondary to myelodysplasia #COPD w/ 2L nocturnal O2, HLD, HTN, Myelodysplasia w/ injection of Darbipoient every other week (due tomorrow), lupus x 2yr on hydroxychloroquine 200mg daily and prednisone 10, GERD, DJD, Hospital Course: - Admit to general medicine, vitals per protocol DVT prophylaxis Lovenox + ALPS Heart Healthy Diet Full Code As Ranked By This Provider Problem List: 1. Pneumonia 2. Respiratory failure 3. Thrombocytopenia 4. Chronic anemia Core Measures/Misc (02/24) Acute Coronary Syndrome ACS Diagnosis: No Congestive Heart Failure Congestive Heart Failure Diagnosis No Last Known EF % 40 Cerebrovascular Accident CVA/TIA Diagnosis: No VTE (View Protocol) VTE Risk Factors Age>40 No Mechanical VTE Prophylaxis d/t N/A MechProphylax Ordered No VTE Pharm Prophylaxis d/t NA PharmProphylax ordered Sepsis (View protocol) Sepsis Present: Yes Michelle Ravi 10/15/17 0155: Resident Review Statement Resident Statement: examined this patient, discussed with college intern Other Findings: Patient is 86-year-old female with past medical history of MDS(on darbepoetin weekly injections and prednisone 10 mg daily), chronic anemia requiring blood transfusions, SLE on hydroxychloroquine and prednisone, GERD, history of COPD on 2 L nocturnal O2, hypertension, recent admission to [facility](07/2017) for acute hypoxic respiratory failure secondary to pneumonia presented to the was brought into the ED with a chief complaint of increased lethargy and low pulse ox at home. Patient was discharged from [facility] after being treated for hypoxic respiratory failure secondary to pneumonia. Sputum cultures were positive for Pansensitive Pseudomonas and she was treated with ceftazidime. Blood cultures were negative. She also had type II AK secondary to sepsis. Postdischarge patient was sent to rehabilitation from where she was discharged home one week back. Since coming back from the rehabilitation, patient has been very weak, lethargic and but has been ambulating using a walker. Daughter reports that she had no fever, no chills, no cough, abdominal pain, urinary out bowel symptoms. Today however the patient looked very weak, lethargic, fatigued, wasn't able to walk with a walker. She appeared confused and altered. The visiting nurse checked her oxygen saturations which were low and so the the doctor sent her to the ER. However over the past few days she has really walk. Denies any sick contacts, travel history. Vitals at admission to the [facility]: MAXIMUM TEMPERATURE of 103, pulse 125, respiration 24, saturating 95% on 3 L nasal cannula. Labs significant for a white count of 4.2(baseline) no left shift, hemoglobin 7/ 22(baseline 8.6), sodium 136, potassium 5.1, lactic acid 4.5(improved to 1.2 with fluids), alkaline phosphatase 128, troponin 0.01, albumin 3.4. UA showed no infection EKG: Sinus tachycardia, no ischemic changes Chest CT showed patchy opacities at lung bases, more on left? atelectasis/ pneumonia. Severe emphysema. Chest x-ray showed COPD Physical exam General: Awake, alert, oriented 3, mild distress, cachectic HEENT: PERRLA, EOMI, nasal cannula Neck: No JVD, no carotid bruit CVS: S1 and S2 heard, no murmur Lungs: minimal basal crackles on the right, diminished air entry: Abdomen: No tenderness, bowel sounds positive Extremities: No edema, ecchymotic legs, discoloration, multiple ecchymotic areas on the arms and legs Assessment Generalized deconditioning, weakness, confusion likely secondary to pneumonia Severe sepsis(fever, tachycardia, tachypnea, lactic acidosis, opacity on CT) HCAP(Pseudomonas in the previous sputum culture) History of MDS, chronic anemia Bilateral lower extremity ecchymosis, stasis dermatitis History of lupus on hydroxychloroquine and prednisone Plan * Admit to [facility] * Vitals per protocol * Continue oxygen saturation >92% * TRC nebs [id number] * Patient received 3 L of fluid in the ED. Blood pressure responded well with most recent BP 105/53 we'll continue gentle hydration with normal saline at 75 cc an hour. * Will give stress dose of steroids for persistently low BP * Pancultures * IV ceftazidime and vancomycin for HCAP * Hemoglobin 7. Patient will receive 1 unit of blood transfusion * Lasix in between transfusions if crackles on exam * Patient is scheduled for darbepoetin injection tomorrow * Continue hydroxychloroquine and prednisone for lupus * Hemeonc consult in a.m * PT consult * DVT prophylaxis subcutaneous Lovenox * Full code(patient was DNR/DNI in the previous admission please discuss with daughter in a.m.) * Low threshold for ICU transfer Danita Salamanca 10/15/17 0549: Attending MD Review Statement Attending Statement Attending MD Statement: examined this patient, discuss w/resident/PA/TOTER, agreed w/resident/PA/TOTER, reviewed EMR data (avail), reviewed images, amended to note Attending Assessment/Plan: CC: Fever PMH: MDS, COPD on nocturnal 2 L oxygen, lupus, GERD, HTN, HLD Patient was brought in ER through EMS from her home for lethargy, confusion, fever and chills. History is obtained from patient and her daughter. Patient was recently discharged from rehabilitation approximately a week back. Since discharge patient has been doing well but today all of a sudden she developed this fever and chills and confusion, noted once home physical therapy came. Patient states that she has cough since last 2 weeks, productive, denies any chest pain, chest tightness but has right hip pain. She also has laceration on right knee and she is not aware who she did get it. He denies any diarrhea, abdominal pain, urinary burning or frequency. Vitals: Max 103, pulse 125, RR 26, blood pressure 106/51, saturating 95% on 2.5 L On exam: A O 3, lethargic, cachectic, cooperative, mild respiratory distress, neck supple, JVD normal, no lymphadenopathy, mucosa dry, no focal neurological deficit, no dependent edema, skin discoloration on lower extremities secondary to ecchymosis, laceration on right knee, doesn't appear infected CVS: S1-S2, RRR. RS: Bibasilar crackles. Abdomen: Soft, NT, ND, bowel sounds present. CTA chest, CT abdomen and pelvis with IV contrast: 1. Patchy opacities at the lung bases, particularly at the left base. This could represent atelectasis or pneumonia. 2. Severe emphysema. There is interlobular septal thickening which may be chronic, although superimposed mild edema is possible. 3. No acute inflammatory changes of the abdomen or pelvis. Assessment and plan 86-year-old female with extensive past medical history, on chronic prednisone for lupus, COPD on nighttime oxygen presented in ER for 1 day history of lethargy, confusion, fever. She had fever spike of 103, tachycardia and tachypnea. She has bibasilar crackles on auscultation and chest CT scan confirms pneumonia. Patient was recently hospitalized from July 29- August 23 for pneumonia, demand ischemia, significant emphysema and COPD and then discharged to rehabilitation. Patient symptomatically improved but has cough since last 2 weeks according to her. History is also confirmed from patient's daughter. She has MDS and WBC count would be unreliable. She had significant lactic acidosis and transient hypotension which responded to fluids. Will continue to treat her as healthcare associated pneumonia with broad-spectrum antibiotic, panculture, monitor her very closely if blood pressure drops again she might need ICU transfer. + Healthcare associated pneumonia bilateral lower lobe + Severe Sepsis + MDS with anemia + History of COPD on nocturnal 2 L oxygen, lupus, GERD, HTN, HLD - Admit to general medicine - Blood culture, sputum culture, UA urine culture - Continue vancomycin and ceftazidime - Patient received 3 L normal saline bolus in ER with hemoglobin of 7, patient may drop further in need to transfuse 1 unit PRBC then saline lock IV - If persistently hypotensive then a dose of stress dose hydrocortisone - If persistently hypotensive transfer to ICU - inform Haem/Oncology - TRC nebs - Continue gabapentin, mirtazapine and atorvastatin - DVT prophylaxis
--- NOTE | 2017-10-15 05:50 | Admission Certification ---
Admission Certification Certification Statement - As attending physician, I certify that at the time of - admission, based on clinical presentation, severity of - symptoms, need for further diagnostic testing and - therapeutic interventions, and risk of adverse outcomes - without in-hospital treatment, in my clinical assessment, - this patient requires an acute hospital stay for a minimum - of two nights or longer. I have also considered psychsocial - factors such as support system, advanced age, financial - issues, cognitive issues, and failed out-patient treatments, - past re-admission history, safety of patient, and lack of - compliance as applicable. Specific rationale supporting this admission is: Severe sepsis secondary to healthcare associated pneumonia
--- NOTE | 2017-10-15 07:02 | Cons- Hematology ---
General Information and HPI Consulting Request Date of Consult: 10/15/17 Requested By: Danita Salamanca MD History of Present Illness: 86-year-old woman known to me with myelodysplasia treated with prednisone 10 mg a day and erythropoietin. She recently had Pseudomonas pneumonia. She is now admitted with high fevers and low blood pressure. She is awake. Patient recently suffered a laceration on her lower extremity. Patient also has known GI bleeding of unclear source. Allergies/Medications Allergies: Coded Allergies: NO KNOWN ALLERGIES (06/06/15) Home Med List: Acetaminophen (Tylenol Extra Strength) 500 MG TABLET 1 TAB PO TID Pain Cholecalciferol (Vitamin D3) (Vitamin D3) 2,000 UNIT TABLET 1 TAB PO DAILY VITAMIN SUPPORT (Reported) Hydroxychloroquine Sulfate 200 MG TABLET 1 TAB PO DAILY LUPUS (Reported) Lidocaine (Lidoderm) 5 % ADH..PATCH 1 PAT EXT DAILY@1300 pain Omeprazole Magnesium (Prilosec Otc) 20 MG TABLET.DR 1 20MG PO DAILY ACID REFLUX (Reported) Potassium Chloride 10 MEQ TABLET.ER 1 TAB PO BID SUPPLEMENT Prednisone 5 MG TABLET 1 TAB PO BID LUPUS (Reported) Start taking on 08/30 after the taper is complete Prednisone 10 MG TABLET 10 MG PO DAILY steroid taper 10 mg daily 08/28-08/30 5 mg daily starting 08/31/17 Prednisone 10 MG TABLET 30 MG PO DAILY Steroid taper 30 mg daily 08/23-08/25 Prednisone 20 MG TABLET 20 MG PO DAILY steroid taper 20 mg daily 08/26-08/28 Current Medications: Current Medications Sig/Zeb Start time Last Medication Dose Route Stop Time Status Admin Acetaminophen 1,000 MG ONCE ONE 10/15 429 DC 10/15 N/A 1 UNIT IV 10/16 443 0439 Acetaminophen 325 MG Q6 PRN 10/15 010 AC PO Acetaminophen 0 .STK-MED ONE 10/14 2049 DC IV Acetaminophen 1,000 MG ONCE ONE 10/14 2029 DC 10/14 N/A 1 UNIT IV 10/14 Ceftazidime 1,000 MG Q24H 10/15 2099 AC IV Ceftazidime 0 .STK-MED ONE 10/14 2313 DC .ROUTE Ceftazidime 1,000 MG ONCE ONE 10/140 DC 10/14 IV 10/14 2301 2322 Enoxaparin Sodium 30 MG DAILY 10/15 899 AC SC Furosemide 20 MG ONCE ONE 10/15 0315 DC 10/15 IV 10/15 0316 0434 Hydrocortisone 100 MG ONE ONE 10/15 599 DC Sodium Succinate IV 10/15 600 Hydroxychloroquine 200 MG DAILY 10/15 899 AC Sulfate PO Lidocaine 1 PAT DAILY@1300 05/08 1300 AC EXT Omeprazole 20 MG DAILY AC 10/15 699 AC PO Prednisone 10 MG DAILY 10/15 899 AC PO Sodium Chloride 1,000 ML Q13H 10/15 699 CAN IV Sodium Chloride 1,000 ML BOLUS ONE 10/14 2300 DC / IV 10/14 2358 230 Sodium Chloride 1,000 ML BOLUS ONE 10/14 2300 DC / IV 10/14 2358 232 Sodium Chloride 1,000 ML BOLUS ONE 10/14 2029 DC / IV 10/14 2128 220 Sodium Chloride 1,000 ML BOLUS ONE 10/14 2029 DC / IV 10/14 2128 204 Tramadol HCl 50 MG Q6-PRN PRN 10/15 0300 AC 10/15 PO 0309 Vancomycin HCl 750 MG 2100 10/15 2099 AC Sodium Chloride 250 ML IV Vancomycin HCl 0 .STK-MED ONE 10/14 2313 DC .ROUTE Vancomycin HCl 1,000 MG ONCE ONE 10/14 2299 DC 10/14 Sodium Chloride 250 ML IV 10/14 2358 2322 Review of Systems Review of Systems: Patient denies headaches or dizziness. Denies productive cough chest pain or hemoptysis. She denies nausea vomiting or abdominal pain. Denies obvious blood loss. Denies dysuria or hematuria. She denies focal neurologic deficit Past History Travel History Traveled to [place] past 21 day No Medical History Neurological: NONE EENT: NONE Cardiovascular: hypertension, hyperlipidemia Respiratory: COPD Gastrointestinal: GERD (dependent on OTC Prilosec xyrs) Hepatic: NONE Renal: urinary incontinence Musculoskeletal: degen joint disease, falls, SLE Psychiatric: NONE Endocrine: osteopenia Blood Disorders: anemia, MYELODYSPLASIA Cancer(s): NONE PROOF CARRIER/Reproductive: NONE Surgical History Surgical History: SKIN GRAFT RIGHT LEG POST FALL Family History Relations & Conditions If Any: FATHER (Hx "liver ca" (? if primary vs. met); non-cirrhotic.). , Age 60+ ; Cause: Postoperative complication. MOTHER, , Age 60+; Cause: Unknown cause of morbidity or mortality. SON, , Age 30-40; Cause: MVA (motor vehicle accident). Psychosocial History Who Do You Live With? spouse (in law apt next to dtr), self Services at Home: None Primary Language: Slovak ETOH Use: denies use Illicit Drug Use: denies illicit drug use Living Will? no Power of Asphalt Machine Operator/HCP? no Functional Ability ADLs Independent: dressing, eating, toileting, bathing. Ambulation: cane IADLs Independent: shopping, housework, finances, food prep, telephone, transportation , medication admin. Exam & Diagnostic Data Vital Signs and I&O Vital Signs Date Time Temp Pulse Resp B/P B/P Pulse O2 O2 Flow FiO2 Mean Ox Delivery Rate 10/15 0439 101.1 10/15 0112 98.2 114 20 105/53 94 Nasal 2.5L Cannula 10/15 0019 98.5 104 20 100/48 94 Nasal 3.0L Cannula 10/14 2322 99.1 10/14 2303 99.1 114 20 90/44 95 Nasal 2.0L Cannula 10/14 2206 103.0 116 24 95 Nasal 3.0L Cannula 10/14 2053 99.1 125 26 106/51 95 Nasal 3.0L Cannula Intake & Output 10/15 0800 10/15 0000 10/14 1600 Intake Total 2000 Output Total Balance 2000 Intake, IV 2000 Intake, Oral 0 Patient 87 lb 0.02 oz Weight Weight Reported by Patient Measurement Method Gen.: in NAD ENT: Sclera anicteric Chest: Normal respiratory effort, decreased breath sounds Cor: RRR, no extra sounds Abdomen: Soft, bowel sounds present, no tenderness, no rebound Extremities: Without clubbing, cyanosis, or asymmetric edema, right lower extremity wrapped Neurology: Alert and oriented 3, no gross deficit Last 48 Hours of Lab Results: Laboratory Tests 10/14 10/14 2330 2125 Chemistry Lactic Acid (0.7 - 2.1 mmol/L) 1.2 Urines Urine Color (YEL,AMB,STR) YEL Urine Clarity (CLEAR) CLEAR Urine pH (5.0 - 8.0) 7.5 Ur Specific [place] (1.001 - 1.035) 1.020 Urine Protein (NEG,<30 MG/DL) TRACE H Urine Ketones (NEG) NEG Urine Nitrite (NEG) NEG Urine Bilirubin (NEG) NEG Urine Urobilinogen (0.1 - 1.0 EU/dl) 0.2 Ur Leukocyte Esterase (NEG) NEG Ur Microscopic SEDIMENT EXAMINED Urine RBC (0 - 5 /HPF) RARE Urine WBC (0 - 2 /HPF) RARE Ur Epithelial Cells (NONE,FEW) RARE Urine Bacteria (NEG/NONE) RARE H Urine Mucus (FEW,NONE) RARE Urine Hemoglobin (NEG) NEG Urine Glucose (N MG/DL) NEG 10/14 2022 Chemistry Sodium (137 - 145 mmol/L) 136 L Potassium (3.5 - 5.1 mmol/L) 5.1 Chloride (98 - 107 mmol/L) 96 L Carbon Dioxide (22 - 30 mmol/L) 24 Anion Gap (5 - 16) 15 BUN (7 - 17 mg/dL) 18 H Creatinine (0.5 - 1.0 mg/dL) 0.8 Estimated GFR (>60 ml/min) > 60 BUN/Creatinine Ratio (7 - 25 %) 22.5 Glucose (65 - 99 mg/dL) 100 H Lactic Acid (0.7 - 2.1 mmol/L) 4.5 H Calcium (8.4 - 10.2 mg/dL) 9.0 Total Bilirubin (0.2 - 1.3 mg/dL) 0.5 AST (14 - 36 U/L) 20 ALT (9 - 52 U/L) 18 Alkaline Phosphatase (<127 U/L) 128 H Troponin I (< 0.11 ng/ml) < 0.01 Total Protein (6.3 - 8.2 g/dL) 7.7 Albumin (3.5 - 5.0 g/dL) 3.4 L Globulin (1.9 - 4.2 gm/dL) 4.3 H Albumin/Globulin Ratio (1.1 - 2.2 %) 0.8 L Hematology CBC w Diff NO MAN DIFF REQ WBC (4.8 - 10.8 /CUMM) 4.2 L RBC (4.20 - 5.40 /CUMM) 2.43 L Hgb (12.0 - 16.0 G/DL) 7.0 *L Hct (37 - 47 %) 22.0 L MCV (81.0 - 99.0 FL) 90.7 MCH (27.0 - 31.0 PG) 28.7 MCHC (33.0 - 37.0 G/DL) 31.7 L RDW (11.5 - 14.5 %) 24.1 H Plt Count (130 - 400 /CUMM) 186 MPV (7.4 - 10.4 FL) 8.9 Gran % (42.2 - 75.2 %) 64.5 Lymphocytes % (20.5 - 51.1 %) 18.9 L Monocytes % (1.7 - 9.3 %) 16.6 H Eosinophils % (0 - 5 %) 0 Basophils % (0.0 - 2.0 %) 0 Absolute Granulocytes (1.4 - 6.5 /CUMM) 2.7 Absolute Lymphocytes (1.2 - 3.4 /CUMM) 0.8 L Absolute Monocytes (0.10 - 0.60 /CUMM) 0.7 H Absolute Eosinophils (0.0 - 0.7 /CUMM) 0 Absolute Basophils (0.0 - 0.2 /CUMM) 0 Imaging/Other Studies: CT-chest abdomen and pelvis-COPD, patchy densities at base Assessment/Plan Assessment: 1. Fever/hypotension-patient with previous Pseudomonas pneumonia. She has suffered a laceration of her lower extremity. Recommend- Antibiotics Stress dose steroids, ultimately tapered to prednisone 10 mg per day 2. Myelodysplasia- Recommend- Keep hematocrit >25% Recommendations: .. Consult Acknowledgment - Thank you for your consult request.
[2017-10-15 08:37] LABS: ABSOLUTE BASOPHIL COUNT 0 /CUMM (0.0-0.2); ABSOLUTE EOSINOPHIL COUNT 0 /CUMM (0.0-0.7); MEAN CORPUSCULAR VOLUME 88.9 FL (81.0-99.0)
[2017-10-15 08:47] LABS: WHITE BLOOD CELL COUNT 7.4 /CUMM (4.8-10.8)
[2017-10-15 08:48] LABS: EOSINOPHIL % 0.1 % (0-5); GRANULOCYTE % 65.1 % (42.2-75.2); HEMATOCRIT 23.5 % (37-47); MEAN CORPUSCULAR HGB 28.3 PG (27.0-31.0); MEAN CORPUSCULAR HGB CONC 31.8 G/DL (33.0-37.0); MEAN PLATELET VOLUME 8.5 FL (7.4-10.4); PLATELET COUNT 150 /CUMM (130-400); RBC DISTRIBUTION WIDTH 20.8 % (11.5-14.5); RED BLOOD CELL CT 2.65 /CUMM (4.20-5.40)
[2017-10-15 08:49] LABS: ABSOLUTE GRANULOCYTE CT 4.8 /CUMM (1.4-6.5); ABSOLUTE LYMPH COUNT 1.5 /CUMM (1.2-3.4); BASOPHIL % 0.1 % (0.0-2.0)
--- NOTE | 2017-10-15 10:29 | Acceptance Note - Resident/Int ---
Subjective Background: Patient is 86 year old female with past medical history significant for COPD on 2 L oxygen at night, lupus, MDS, hypertension and dyslipidemia was admitted overnight with chief complaint of lethargy, confusion, fever and chills. He was found to have pneumonia and was started on appropriate antibiotics. While this morning second set of troponin came back positive for 0.17 and was also hypotensive for that patient was planned to transfer to telemetry floor but as nonavailability of telemetry beds patient was transferred to ICU as telemetry hold. On examination patient was not complaining of any chest pain, worsening shortness of breath but she was having cough without sputum production. Labs were WBC count 7.4, hemoglobin 7.5, hematocrit 23.5, platelet count 150, sodium 136, potassium 3.7, BUNs 16, creatinine 0.7. Urinalysis is negative She remained afebrile, blood pressure ranges from 90s to 100 systolic /50s to 60s diastolic. Oxygen saturation 98% on 2 L nasal cannula with respiratory rate ranges from 18- 20. Review of Systems Constitutional: Denies: chills, weakness. EENTM: Denies: blurred vision, visual changes. Cardiovascular: Denies: chest pain, edema, orthopena. Respiratory: Reports: cough. Gastrointestinal: Denies: constipation, diarrhea. Genitourinary: Denies: dysuria, hematuria. Musculoskeletal: Reports: muscle pain. Objective Last 24 Hrs of Vital Signs/I&O Vital Signs Date Time Temp Pulse Resp B/P B/P Pulse O2 O2 Flow FiO2 Mean Ox Delivery Rate 10/15 1619 98 Nasal 2.0L Cannula 10/15 1200 95 Nasal 3.0L Cannula 10/15 0929 98.1 92 18 94/58 96 Nasal 3.0L Cannula 10/15 0914 Nasal 3.0L Cannula 10/15 0715 100.7 20 100/48 96 Nasal 4.0L Cannula 10/15 0700 100.7 / 0651 99.6 99 18 108/99 99 Room Air 10/15 0500 101.1 126 26 94/50 05/08 0439 101.1 10/15 0400 100.9 124 24 118/50 90 Nasal 4.0L Cannula 10/15 0112 98.2 114 20 105/53 94 Nasal 2.5L Cannula 10/15 0019 98.5 104 20 100/48 94 Nasal 3.0L Cannula 10/15 0000 93 Nasal 4.0L Cannula 10/15 0000 98.3 110 24 94/60 88 Nasal 3.0L Cannula 10/14 2321 99.1 10/14 2302 99.1 114 20 90/44 95 Nasal 2.0L Cannula 10/14 2205 103.0 116 24 95 Nasal 3.0L Cannula 10/14 2052 99.1 125 26 106/51 95 Nasal 3.0L Cannula Intake & Output 10/15 1600 10/15 0810/15 0000 Intake Total 320 2450 2000 Output Total 150 Balance 320 2300 1999 Intake, Blood 350 Product Intake, IV 1850 1999 Intake, Oral 320 250 0 Number 1 Bowel Movements Output, Urine 150 Patient 94 lb 15.99 oz Weight Weight Bed scale Measurement Method Physical Exam General Appearance: Alert, Oriented X3, Cooperative Skin: No Breakdown Cardiovascular: Normal S1, Normal S2, No Murmurs Abdomen: Soft, No Tenderness, No Hepatospenomegaly Current Medications: Current Medications Sig/Zeb Start time Last Medication Dose Route Stop Time Status Admin Acetaminophen 1,000 MG ONCE ONE 10/15 429 DC 10/15 N/A 1 UNIT IV 10/15 044 0439 Acetaminophen 325 MG Q6 PRN 10/15 010 AC PO Acetaminophen 0 .STK-MED ONE 10/14 2049 DC IV Acetaminophen 1,000 MG ONCE ONE 10/14 2030 DC 10/14 N/A 1 UNIT IV 10/15 2043 2046 Albuterol Sulfate 3 ML EVERY 4 HRS/AWAKE 10/15 0930 AC 10/15 INH 1617 Ceftazidime 1,000 MG Q24H 10/15 2100 AC IV Ceftazidime 0 .STK-MED ONE 10/14 2313 DC .ROUTE Ceftazidime 1,000 MG ONCE ONE 10/14 2300 DC 10/14 IV 10/14 2301 2322 Enoxaparin Sodium 30 MG DAILY 10/15 899 AC 10/15 SC 1110 Furosemide 40 MG .STK-MED ONE 10/15 0428 DC IV 10/15 0429 Furosemide 20 MG ONCE ONE 10/15 0315 DC 10/15 IV 10/15 0316 0434 Hydrocortisone 50 MG Q8 10/16 599 AC Sodium Succinate IV Hydrocortisone 100 MG ONE ONE 10/15 599 DC 10/15 Sodium Succinate IV 10/15 0601 0702 Hydroxychloroquine 200 MG DAILY 10/15 09 AC 10/15 Sulfate PO 1110 Lidocaine 1 PAT DAILY@1300 10/15 1300 AC EXT Omeprazole 20 MG DAILY AC 10/15 07 AC 10/15 PO 0702 Prednisone 10 MG DAILY 10/15 0900 DC 10/15 PO 1110 Sodium Chloride 1,000 ML Q13H 10/15 699 CAN IV Sodium Chloride 1,000 ML BOLUS ONE 10/14 2300 DC 10/14 IV 10/14 2359 230 Sodium Chloride 1,000 ML BOLUS ONE 10/14 2300 DC 10/14 IV 10/14 2359 2322 Sodium Chloride 1,000 ML BOLUS ONE 10/14 2030 DC 10/14 IV 10/14 2128 220 Sodium Chloride 1,000 ML BOLUS ONE 10/14 2029 DC 10/14 IV 10/14 2128 204 Tramadol HCl 50 MG Q6-PRN PRN 10/15 0300 AC 10/15 PO 0309 Vancomycin HCl 750 MG 2100 10/15 2100 AC Sodium Chloride 250 ML IV Vancomycin HCl 0 .STK-MED ONE 10/14 2313 DC .ROUTE Vancomycin HCl 1,000 MG ONCE ONE 10/14 2299 DC 10/14 Sodium Chloride 250 ML IV 10/14 235 2322 Last 24 Hrs of Lab/Red Results Last 24 Hrs of Labs/Mics: Laboratory Tests 10/15/17 1530: Troponin I 0.11 *H 10/15/17 0735: Anion Gap 10, Estimated GFR > 60, BUN/Creatinine Ratio 22.9, Lactic Acid 1.0, Troponin I 0.17 *H, CBC w Diff MAN DIFF ORDERED, RBC 2.65 L, MCV 88.9, MCH 28.3 , MCHC 31.8 L, RDW 20.8 H, MPV 8.5, Gran % 65.1, Lymphocytes % 20.6, Monocytes % 14.1 H, Eosinophils % 0.1, Basophils % 0.1, Absolute Granulocytes 4.8, Segmented Neutrophils 44, Band Neutrophils 20 H, Absolute Lymphocytes 1.5, Lymphocytes 25, Monocytes 8, Absolute Monocytes 1.0 H, Absolute Eosinophils 0, Absolute Basophils 0, Metamyelocytes 1, Myelocytes 2 H, Nucleated RBCs 1 H, Platelet Estimate VERIFIED BY SMEAR, Polychromasia 1+, Hypochromic-Microcytic 1+ , Anisocytosis 1+, Macrocytic Cells FEW, Target Cells FEW 10/14/17 2330: Lactic Acid 1.2 10/14/172229: Virus Culture Pending 10/14/172124: Urine Color YEL, Urine Clarity CLEAR, Urine pH 7.5, Ur Specific [place] 1.020, Urine Protein TRACE H, Urine Ketones NEG, Urine Nitrite NEG, Urine Bilirubin NEG, Urine Urobilinogen 0.2, Ur Leukocyte Esterase NEG, Ur Microscopic SEDIMENT EXAMINED, Urine RBC RARE, Urine WBC RARE, Ur Epithelial Cells RARE, Urine Bacteria RARE H, Urine Mucus RARE, Urine Hemoglobin NEG, Urine Glucose NEG 10/14/172022: Anion Gap 15, Estimated GFR > 60, BUN/Creatinine Ratio 22.5, Glucose 100 H, Lactic Acid 4.5 H, Calcium 9.0, Total Bilirubin 0.5, AST 20, ALT 18, Alkaline Phosphatase 128 H, Troponin I < 0.01, Total Protein 7.7, Albumin 3.4 L, Globulin 4.3 H, Albumin/Globulin Ratio 0.8 L, CBC w Diff NO MAN DIFF REQ, RBC 2.43 L, MCV 90.7, MCH 28.7, MCHC 31.7 L, RDW 24.1 H, MPV 8.9, Gran % 64.5, Lymphocytes % 18.9 L, Monocytes % 16.6 H, Eosinophils % 0, Basophils % 0, Absolute Granulocytes 2.7, Absolute Lymphocytes 0.8 L, Absolute Monocytes 0.7 H, Absolute Eosinophils 0, Absolute Basophils 0 Microbiology 10/15 1333 URINE ROUT: Legionella Antigen - COLB 10/15 1333 URINE ROUT: Streptococcus pneumoniae Antigen (M - COLB 10/15 236 LOWER RESP: Respiratory Culture - COLB 10/15 236 LOWER RESP: Gram Stain - COLB 10/14 2229 NASOPHARYN: Influenza Virus A & B Rapid Smear - COMP 10/14 2157 BLOOD: Blood Culture - RES 10/14 2124 URINE ROUT: Urine Culture - RES 10/14 2022 BLOOD: Blood Culture - RES Assessment/Plan Assessment: Patient is 86-year-old female with past medical history significant for COPD on nocturnal oxygen, MDS, lupus, hypertension and dyslipidemia came in with generalized weakness and confusion most likely secondary to pneumonia . She was initially admitted to general medical floor but given elevated troponin was transferred to ICU as telemetry hold. During ICU stay we will take care for the following problems Generalized deconditioning, weakness, confusion likely secondary to pneumonia Severe sepsis(fever, tachycardia, tachypnea, lactic acidosis, opacity on CT) HCAP(Pseudomonas in the previous sputum culture) History of MDS, chronic anemia Bilateral lower extremity ecchymosis, stasis dermatitis History of lupus on hydroxychloroquine and prednisone Plan 1. We will trend troponins and EKG 2. Cardiology evaluation 3. We will give patient stress dose of hydrocortisone and we will continue hydrocortisone 50 mg every 8 hours tomorrow, 25 mg IV every 8 hours after that and she will be tapered down to 10 mg prednisone daily later on. 4. We will continue vancomycin and Ceptaz for now. 5. Patient received a unit of blood and we will recheck complete blood count this evening. 6. We will call ID for further evaluation and appropriate antibiotic coverage guidance Problem List: 1. Pneumonia 2. MDS (myelodysplastic syndrome) Pain Ratin Pain Location: Not applicable Pain Goal: Remain pain free Pain Plan: Tylenol Tomorrow's Labs & Rationales: CBC and basic electrolyte panel
--- NOTE | 2017-10-15 11:46 | PN- Att Addend ---
Attending Addendum Attending Brief Note Patient seen and examined. 86-year-old female recently admitted to the hospital with hypoxic respiratory failure secondary to Pseudomonas pneumonia treated with antibiotic therapy and discharge home. Readmitted overnight after presenting with weakness. Found to have pneumonia on imaging. Found to be hypotensive. This morning patient is extremely lethargic. She is oriented 3 and answers some simple questions. She denies pain. Denies difficulty breathing. Vital Signs Date Time Temp Pulse Resp B/P B/P Pulse O2 O2 Flow FiO2 Mean Ox Delivery Rate 10/15 0829 98.1 92 18 94/58 96 Nasal 3.0L Cannula 10/15 0914 Nasal 3.0L Cannula 10/15 0715 100.7 20 100/48 96 Nasal 4.0L Cannula / 0700 100.7 / 0651 99.6 99 18 108/99 99 Room Air 10/15 0500 101.1 126 26 94/50 05/08 0439 101.1 / 0400 100.9 124 24 118/50 90 Nasal 4.0L Cannula /08 0112 98.2 114 20 105/53 94 Nasal 2.5L Cannula /08 0019 98.5 104 20 100/48 94 Nasal 3.0L Cannula 05/08 0000 93 Nasal 4.0L Cannula 05/08 0000 98.3 110 24 94/60 88 Nasal 3.0L Cannula 05/07 2322 99.1 05/07 2303 99.1 114 20 90/44 95 Nasal 2.0L Cannula 05/07 2206 103.0 116 24 95 Nasal 3.0L Cannula 05/07 2053 99.1 125 26 106/51 95 Nasal 3.0L Cannula General appearance: Frail looking elderly lady. Not in respiratory distress HEENT: Anicteric, no pallor, pupils equal and reactive. Neck: Supple with no jugular venous distention. Heart: S1-S2 regular with no audible murmur. Lungs: Diminished air entry bilaterally with no added sounds. Abdomen: Nondistended with normal bowel sounds. Soft, nontender with no palpable masses. Extremities: No pedal edema. Laboratory Tests 10/15/17 0735: Anion Gap 10, Estimated GFR > 60, BUN/Creatinine Ratio 22.9, Lactic Acid 1.0, Troponin I 0.17 *H, CBC w Diff MAN DIFF ORDERED, RBC 2.65 L, MCV 88.9, MCH 28.3 , MCHC 31.8 L, RDW 20.8 H, MPV 8.5, Gran % 65.1, Lymphocytes % 20.6, Monocytes % 14.1 H, Eosinophils % 0.1, Basophils % 0.1, Absolute Granulocytes 4.8, Segmented Neutrophils 44, Band Neutrophils 20 H, Absolute Lymphocytes 1.5, Lymphocytes 25, Monocytes 8, Absolute Monocytes 1.0 H, Absolute Eosinophils 0, Absolute Basophils 0, Metamyelocytes 1, Myelocytes 2 H, Nucleated RBCs 1 H, Platelet Estimate VERIFIED BY SMEAR, Polychromasia 1+, Hypochromic-Microcytic 1+ , Anisocytosis 1+, Macrocytic Cells FEW, Target Cells FEW 10/14/17 2330: Lactic Acid 1.2 10/14/172229: Virus Culture Pending 10/14/172124: Urine Color YEL, Urine Clarity CLEAR, Urine pH 7.5, Ur Specific [place] 1.020, Urine Protein TRACE H, Urine Ketones NEG, Urine Nitrite NEG, Urine Bilirubin NEG, Urine Urobilinogen 0.2, Ur Leukocyte Esterase NEG, Ur Microscopic SEDIMENT EXAMINED, Urine RBC RARE, Urine WBC RARE, Ur Epithelial Cells RARE, Urine Bacteria RARE H, Urine Mucus RARE, Urine Hemoglobin NEG, Urine Glucose NEG 10/14/172022: Anion Gap 15, Estimated GFR > 60, BUN/Creatinine Ratio 22.5, Glucose 100 H, Lactic Acid 4.5 H, Calcium 9.0, Total Bilirubin 0.5, AST 20, ALT 18, Alkaline Phosphatase 128 H, Troponin I < 0.01, Total Protein 7.7, Albumin 3.4 L, Globulin 4.3 H, Albumin/Globulin Ratio 0.8 L, CBC w Diff NO MAN DIFF REQ, RBC 2.43 L, MCV 90.7, MCH 28.7, MCHC 31.7 L, RDW 24.1 H, MPV 8.9, Gran % 64.5, Lymphocytes % 18.9 L, Monocytes % 16.6 H, Eosinophils % 0, Basophils % 0, Absolute Granulocytes 2.7, Absolute Lymphocytes 0.8 L, Absolute Monocytes 0.7 H, Absolute Eosinophils 0, Absolute Basophils 0 Microbiology 10/15 236 LOWER RESP: Respiratory Culture - COLB 10/15 236 LOWER RESP: Gram Stain - COLB 10/14 2229 NASOPHARYN: Influenza Virus A & B Rapid Smear - COMP 10/14 2157 BLOOD: Blood Culture - RECD 10/14 2124 URINE ROUT: Urine Culture - RES 10/14 2022 BLOOD: Blood Culture - RECD Problems: 1. Pneumonia; likely secondary to gram-negative pathogen. Patient grew Pseudomonas in the past 2. Sepsis; secondary to above 3. Non-ST elevation myocardial infarction. 4. Anemia secondary to myelodysplastic syndrome 5. Chronic hypoxic respiratory failure secondary to COPD 6. Hypertension 7. Lupus Plan: -On account of her troponin elevation patient has been transferred to the telemetry service for further management (currently telemetry hold in the intensive care unit.) - Trend cardiac enzymes. Cardiology consultation. -Follow-up with the cardiology service regarding need for another echocardiogram. She had an echocardiogram in July when she developed non-ST elevation NH following admission for pneumonia at that time. EF was reported at 40% at that time. She had mid to distal anteroseptal hypokinesis. -Continue antibiotic therapy with vancomycin and ceftaz. Infectious disease consultation. -In view of her non-ST elevation myocardial infarction transfuse to keep hemoglobin level greater than 8. She received 1 unit of blood overnight. Hemoglobin level is currently 7.5. Recommend another unit of PRBC. -Blood pressure is borderline. There was concern for suppression of the hypothalamic pituitary adrenal axis so patient was given a stress dose of hydrocortisone this morning. Recommend hydrocortisone 50 mg IV every 8 hours tomorrow and then hydrocortisone 25 mg IV every 8 hours the day after. -Recommend family meeting to discuss goals of care. Due to her advanced age and comorbidities prognosis is guarded. She was made comfort measures only during the last hospitalization but she did turnaround and improved. She was discharged only to return with another episode of sepsis.
--- NOTE | 2017-10-15 18:46 | Cons- Infect Disease ---
General Information and HPI Consulting Request Date of Consult: 10/15/17 Requested By: Sidney Oliver MD Reason for Consult: Rule out pneumonia Source of Information: patient, family, old records History of Present Illness: This is an 86-year-old woman with a history of hypertension, COPD, maintained on 2 L of oxygen at night, lupus, maintained on 10 mg of prednisone daily, and myelodysplastic syndrome, maintained on biweekly Erythropoietin and periodic blood transfusions, hospitalized nearly 3 months prior to admission with sepsis, felt to be secondary to pneumonia, with her hospital course complicated by possible pseudomonas pneumonia, treated with 5 days of Ceftazidime, which was discontinued when she was made comfort measures, discharged to a rehab facility after 1 month, with reversal of the comfort measures decision and discharged home 1 week prior to admission, with a chronic, nonproductive cough for several months, admitted on October 14 after she was brought to the emergency room because of hypoxia, weakness and confusion. On admission she was febrile to 103, with an initial blood pressure of 106/51. Laboratory data revealed a white blood cell count of 4000, H&H 7 and 22, BUN/creatinine 18 and 0.8, lactic acid 4.5, alkaline phosphatase 128. Urinalysis rare RBC/rare WBCs. Chest x-ray revealed improvement from the previous study with resolution of the groundglass opacities. CT of the chest, abdomen and pelvis revealed patchy opacities at the lung bases, with no acute abdominal or pelvic process. She was given 3 L of normal saline and begun on Vancomycin and Ceftazidime. She was transfused 1 unit of blood. This morning her troponin was mildly elevated and she was moved to the ICU for telemetry. She has also been started on Hydrocortisone for stress steroids. Allergies/Medications Allergies: Coded Allergies: NO KNOWN ALLERGIES (06/06/15) Home Med List: Acetaminophen (Tylenol Extra Strength) 500 MG TABLET 1 TAB PO TID Pain Cholecalciferol (Vitamin D3) (Vitamin D3) 2,000 UNIT TABLET 1 TAB PO DAILY VITAMIN SUPPORT (Reported) Hydroxychloroquine Sulfate 200 MG TABLET 1 TAB PO DAILY LUPUS (Reported) Lidocaine (Lidoderm) 5 % ADH..PATCH 1 PAT EXT DAILY@1300 pain Omeprazole Magnesium (Prilosec Otc) 20 MG TABLET.DR 1 20MG PO DAILY ACID REFLUX (Reported) Potassium Chloride 10 MEQ TABLET.ER 1 TAB PO BID SUPPLEMENT Prednisone 5 MG TABLET 1 TAB PO BID LUPUS (Reported) Start taking on 08/30 after the taper is complete Prednisone 10 MG TABLET 10 MG PO DAILY steroid taper 10 mg daily 08/28-08/30 5 mg daily starting 08/31/17 Prednisone 10 MG TABLET 30 MG PO DAILY Steroid taper 30 mg daily 08/23-08/25 Prednisone 20 MG TABLET 20 MG PO DAILY steroid taper 20 mg daily 08/26-08/28 Past History Travel History Traveled to [place] past 21 day No Medical History Blood Transfusion Hx: Yes Neurological: NONE EENT: NONE Cardiovascular: hypertension, hyperlipidemia Respiratory: COPD Gastrointestinal: GERD (dependent on OTC Prilosec xyrs) Hepatic: NONE Renal: urinary incontinence Musculoskeletal: degen joint disease, falls, SLE Psychiatric: NONE Endocrine: osteopenia SLE Blood Disorders: anemia, MYELODYSPLASIA Cancer(s): NONE TILE DITCHER/Reproductive: NONE History of MRSA: No History of VRE: No History of CDIFF: No Isolation History: Standard Influenza Vaccine: 04/10/17 Surgical History Surgical History: SKIN GRAFT RIGHT LEG POST FALL Family History Relations & Conditions If Any: FATHER (Hx "liver ca" (? if primary vs. met); non-cirrhotic.). , Age 60+ ; Cause: Postoperative complication. MOTHER, , Age 60+; Cause: Unknown cause of morbidity or mortality. SON, , Age 30-40; Cause: MVA (motor vehicle accident). Psychosocial History Where Do You Live? Home Who Do You Live With? spouse (in law apt next to dtr), self Services at Home: None Primary Language: Wolof Smoking Status: Former Smoker ETOH Use: denies use Illicit Drug Use: denies illicit drug use Living Will? no Power of Upholstery Covers Inspector/HCP? no Functional Ability ADLs Independent: dressing, eating, toileting, bathing. Ambulation: cane IADLs Independent: shopping, housework, finances, food prep, telephone, transportation , medication admin. Review of Systems Review of Systems Cardiovascular: Denies: chest pain. Respiratory: Denies: short of breath. GI: Reports: no symptoms. Genitourinary: Reports: no symptoms. All Other Systems: Reviewed and Negative Exam & Diagnostic Data Last 24 Hrs of Vital Signs/I&O Vital Signs Date Time Temp Pulse Resp B/P B/P Pulse O2 O2 Flow FiO2 Mean Ox Delivery Rate 10/15 1619 98 Nasal 2.0L Cannula 10/15 1600 97 Nasal 2.0L Cannula 10/15 1600 98.7 87 18 102/58 97 Nasal 2.0L Cannula 10/15 1200 95 Nasal 3.0L Cannula 10/15 0929 98.1 92 18 94/58 96 Nasal 3.0L Cannula 10/15 0914 Nasal 3.0L Cannula 10/15 0715 100.7 20 100/48 96 Nasal 4.0L Cannula 10/15 0700 100.7 05/08 0651 99.6 99 18 108/99 99 Room Air 10/15 0500 101.1 126 26 94/50 05/08 0439 101.1 /08 0400 100.9 124 24 118/50 90 Nasal 4.0L Cannula 10/15 0112 98.2 114 20 105/53 94 Nasal 2.5L Cannula 10/15 0019 98.5 104 20 100/48 94 Nasal 3.0L Cannula / 0000 93 Nasal 4.0L Cannula / 0000 98.3 110 24 94/60 88 Nasal 3.0L Cannula 10/14 2322 99.1 10/14 2303 99.1 114 20 90/44 95 Nasal 2.0L Cannula 10/14 2206 103.0 116 24 95 Nasal 3.0L Cannula 10/14 2053 99.1 125 26 106/51 95 Nasal 3.0L Cannula Intake & Output 10/15 1600 05/08 0800 05/08 0000 Intake Total 320 2450 2000 Output Total 150 Balance 320 2300 2000 Intake, Blood 350 Product Intake, IV 1850 2000 Intake, Oral 320 250 0 Number 1 Bowel Movements Output, Urine 150 Patient 94 lb 15.99 oz Weight Weight Bed scale Measurement Method Physical Exam Other Physical Findings: She is awake and alert in no acute distress. T-max 103. Skin reveals diffuse ecchymoses over all of her extremities. HEENT exam is negative. Neck is supple with no adenopathy. Lungs crackles at the right base. Heart regular rhythm with no murmur. Abdomen is soft, nontender with positive bowel sounds. Back no CVA tenderness. Extremities laceration below the right knee with no surrounding inflammation; no cyanosis, clubbing or edema. Neuro is without focality. Last 24 Hours of Lab Results: Laboratory Tests 10/15 10/15 10/14 1530 0735 2330 Chemistry Sodium (137 - 145 mmol/L) 136 L Potassium (3.5 - 5.1 mmol/L) 3.7 Chloride (98 - 107 mmol/L) 103 Carbon Dioxide (22 - 30 mmol/L) 23 Anion Gap (5 - 16) 10 BUN (7 - 17 mg/dL) 16 Creatinine (0.5 - 1.0 mg/dL) 0.7 Estimated GFR (>60 ml/min) > 60 BUN/Creatinine Ratio (7 - 25 %) 22.9 Lactic Acid (0.7 - 2.1 mmol/L) 1.0 1.2 Troponin I (< 0.11 ng/ml) 0.11 *H 0.17 *H Hematology CBC w Diff MAN DIFF ORDERED WBC (4.8 - 10.8 /CUMM) 7.4 RBC (4.20 - 5.40 /CUMM) 2.65 L Hgb (12.0 - 16.0 G/DL) 7.5 L Hct (37 - 47 %) 23.5 L MCV (81.0 - 99.0 FL) 88.9 MCH (27.0 - 31.0 PG) 28.3 MCHC (33.0 - 37.0 G/DL) 31.8 L RDW (11.5 - 14.5 %) 20.8 H Plt Count (130 - 400 /CUMM) 150 MPV (7.4 - 10.4 FL) 8.5 Gran % (42.2 - 75.2 %) 65.1 Lymphocytes % (20.5 - 51.1 %) 20.6 Monocytes % (1.7 - 9.3 %) 14.1 H Eosinophils % (0 - 5 %) 0.1 Basophils % (0.0 - 2.0 %) 0.1 Absolute Granulocytes (1.4 - 6.5 /CUMM) 4.8 Segmented Neutrophils (42.2 - 75.2 %) 44 Band Neutrophils (0.0 - 5.0 %) 20 H Absolute Lymphocytes (1.2 - 3.4 /CUMM) 1.5 Lymphocytes (20.5 - 51.1 %) 25 Monocytes (1.7 - 9.3 %) 8 Absolute Monocytes (0.10 - 0.60 /CUMM) 1.0 H Absolute Eosinophils (0.0 - 0.7 /CUMM) 0 Absolute Basophils (0.0 - 0.2 /CUMM) 0 Metamyelocytes (0.0 - 1.0 %) 1 Myelocytes (0 - 0 %) 2 H Nucleated RBCs (0.0 - 0.0 /100WBC) 1 H Platelet Estimate (ADEQUATE) VERIFIED BY SMEAR Polychromasia 1+ Hypochromic-Microcytic 1+ Anisocytosis 1+ Macrocytic Cells FEW Target Cells FEW 10/14 Serology Virus Culture Pending Urines Urine Color (YEL,AMB,STR) YEL Urine Clarity (CLEAR) CLEAR Urine pH (5.0 - 8.0) 7.5 Ur Specific Export (1.001 - 1.035) 1.020 Urine Protein (NEG,<30 MG/DL) TRACE H Urine Ketones (NEG) NEG Urine Nitrite (NEG) NEG Urine Bilirubin (NEG) NEG Urine Urobilinogen (0.1 - 1.0 EU/dl) 0.2 Ur Leukocyte Esterase (NEG) NEG Ur Microscopic SEDIMENT EXAMINED Urine RBC (0 - 5 /HPF) RARE Urine WBC (0 - 2 /HPF) RARE Ur Epithelial Cells (NONE,FEW) RARE Urine Bacteria (NEG/NONE) RARE H Urine Mucus (FEW,NONE) RARE Urine Hemoglobin (NEG) NEG Urine Glucose (N MG/DL) NEG 10/14 2022 Chemistry Sodium (137 - 145 mmol/L) 136 L Potassium (3.5 - 5.1 mmol/L) 5.1 Chloride (98 - 107 mmol/L) 96 L Carbon Dioxide (22 - 30 mmol/L) 24 Anion Gap (5 - 16) 15 BUN (7 - 17 mg/dL) 18 H Creatinine (0.5 - 1.0 mg/dL) 0.8 Estimated GFR (>60 ml/min) > 60 BUN/Creatinine Ratio (7 - 25 %) 22.5 Glucose (65 - 99 mg/dL) 100 H Lactic Acid (0.7 - 2.1 mmol/L) 4.5 H Calcium (8.4 - 10.2 mg/dL) 9.0 Total Bilirubin (0.2 - 1.3 mg/dL) 0.5 AST (14 - 36 U/L) 20 ALT (9 - 52 U/L) 18 Alkaline Phosphatase (<127 U/L) 128 H Troponin I (< 0.11 ng/ml) < 0.01 Total Protein (6.3 - 8.2 g/dL) 7.7 Albumin (3.5 - 5.0 g/dL) 3.4 L Globulin (1.9 - 4.2 gm/dL) 4.3 H Albumin/Globulin Ratio (1.1 - 2.2 %) 0.8 L Hematology CBC w Diff NO MAN DIFF REQ WBC (4.8 - 10.8 /CUMM) 4.2 L RBC (4.20 - 5.40 /CUMM) 2.43 L Hgb (12.0 - 16.0 G/DL) 7.0 *L Hct (37 - 47 %) 22.0 L MCV (81.0 - 99.0 FL) 90.7 MCH (27.0 - 31.0 PG) 28.7 MCHC (33.0 - 37.0 G/DL) 31.7 L RDW (11.5 - 14.5 %) 24.1 H Plt Count (130 - 400 /CUMM) 186 MPV (7.4 - 10.4 FL) 8.9 Gran % (42.2 - 75.2 %) 64.5 Lymphocytes % (20.5 - 51.1 %) 18.9 L Monocytes % (1.7 - 9.3 %) 16.6 H Eosinophils % (0 - 5 %) 0 Basophils % (0.0 - 2.0 %) 0 Absolute Granulocytes (1.4 - 6.5 /CUMM) 2.7 Absolute Lymphocytes (1.2 - 3.4 /CUMM) 0.8 L Absolute Monocytes (0.10 - 0.60 /CUMM) 0.7 H Absolute Eosinophils (0.0 - 0.7 /CUMM) 0 Absolute Basophils (0.0 - 0.2 /CUMM) 0 Last 24 Hours of Red Results: Blood cultures 2 October 14 negative Urine culture October 14 negative Rapid flu swab October 14 negative Diagnostic Data Recent Imaging Findings: Chest x-ray October 14 reveals COPD with resolution of the previously noted groundglass pulmonary opacities CT of the chest, abdomen and pelvis October 14 reveals patchy opacities of the lung bases, particularly the left base, with no acute inflammatory changes of the abdomen or pelvis Assessment/Plan Assessment/Plan Impression: This is an 86-year-old woman with a history of COPD, maintained on 2 L of oxygen at night, lupus, maintained on 10 mg of prednisone daily, and myelodysplastic syndrome, hospitalized nearly 3 months prior to admission with sepsis, felt to be secondary to pneumonia, with a chronic, nonproductive cough since then, admitted on October 14 because of hypoxia, weakness and confusion, found to be febrile and anemic, with a CT of the chest revealing bibasilar patchy opacities. The source of her fever is unclear. She was reportedly hypoxic, but her respiratory status appears to be stable, and her CT of the chest does not reveal a definite pneumonia. She has no other obvious source of sepsis, with her blood and urine cultures so far negative. She can be continued on empiric treatment for now but, if her cultures remain negative, her antibiotics should be able to be adjusted. Suggestion: 1. Would attempt to obtain a sputum culture 2. Nares surveillance culture for MRSA 3. Continue stress steroids per Hematology 4. Follow-up final blood and urine cultures 5. Continue Vancomycin and Ceftazidime pending above Consult Acknowledgment - Thank you for your consult request.
--- NOTE | 2017-10-15 20:51 | Cons- Cardiology ---
General Information and HPI Consulting Request Date of Consult: 10/15/17 Requested By: Benito PROCTOR,Sidney History of Present Illness: Ms. Aguirre is an 86 year old female with history of myelodysplastic syndrome, Lupus and COPD. She has had chronic anemia and with blood transfusions. Over the past few days this patient has had shortness of breath accompanied by a congested cough, weakness fever and chills. Her visiting nurse noted a low oxygen saturation promting her presentation to the ER for further evaluation. She is noted to be febrile with normal WBC count and no new infiltrate on her chest X-ray. She was again found to be profoundly anemic with sinus tachycardia at approximately 120bpm. In this setting she demonstrates a small rise in cardiac enzymes. The patient denies any chest discomfort of any kind but does have some mild shortness of breath. She otherwise denies nausea, vomiting, diaphoresis, lightheadedness or palpitations. It may be recalled that on a recent prior hospital admission in July this patient was hypotensive and was noted to have guaiac positive stool with a profoundly low H/H and platelets. Allergies/Medications Allergies: Coded Allergies: NO KNOWN ALLERGIES (06/06/15) Home Med List: Acetaminophen (Tylenol Extra Strength) 500 MG TABLET 1 TAB PO TID Pain Cholecalciferol (Vitamin D3) (Vitamin D3) 2,000 UNIT TABLET 1 TAB PO DAILY VITAMIN SUPPORT (Reported) Hydroxychloroquine Sulfate 200 MG TABLET 1 TAB PO DAILY LUPUS (Reported) Lidocaine (Lidoderm) 5 % ADH..PATCH 1 PAT EXT DAILY@1300 pain Omeprazole Magnesium (Prilosec Otc) 20 MG TABLET.DR 1 20MG PO DAILY ACID REFLUX (Reported) Potassium Chloride 10 MEQ TABLET.ER 1 TAB PO BID SUPPLEMENT Prednisone 5 MG TABLET 1 TAB PO BID LUPUS (Reported) Start taking on 08/30 after the taper is complete Prednisone 10 MG TABLET 10 MG PO DAILY steroid taper 10 mg daily 08/28-08/30 5 mg daily starting 08/31/17 Prednisone 10 MG TABLET 30 MG PO DAILY Steroid taper 30 mg daily 08/23-08/25 Prednisone 20 MG TABLET 20 MG PO DAILY steroid taper 20 mg daily 08/26-08/28 Review of Systems Review of Systems: A review of systems is unremarkable. Past History Travel History Traveled to [place] past 21 day No Medical History Blood Transfusion Hx: Yes Neurological: NONE EENT: NONE Cardiovascular: hypertension, hyperlipidemia Respiratory: COPD Gastrointestinal: GERD (dependent on OTC Prilosec xyrs) Hepatic: NONE Renal: urinary incontinence Musculoskeletal: degen joint disease, falls, SLE Psychiatric: NONE Endocrine: osteopenia SLE Blood Disorders: anemia, MYELODYSPLASIA Cancer(s): NONE PERSONAL CARE AID/Reproductive: NONE Surgical History Surgical History: SKIN GRAFT RIGHT LEG POST FALL Family History Relations & Conditions If Any: FATHER (Hx "liver ca" (? if primary vs. met); non-cirrhotic.). , Age 60+ ; Cause: Postoperative complication. MOTHER, , Age 60+; Cause: Unknown cause of morbidity or mortality. SON, , Age 30-40; Cause: MVA (motor vehicle accident). Psychosocial History Where Do You Live? Home Who Do You Live With? spouse (in law apt next to dtr), self Services at Home: None Primary Language: Singaporean Smoking Status: Former Smoker ETOH Use: denies use Illicit Drug Use: denies illicit drug use Living Will? no Power of Rn Integrated/HCP? no Functional Ability ADLs Independent: dressing, eating, toileting, bathing. Ambulation: cane IADLs Independent: shopping, housework, finances, food prep, telephone, transportation , medication admin. Exam & Diagnostic Data Vital Signs and I&O Vital Signs Date Time Temp Pulse Resp B/P B/P Pulse O2 O2 Flow FiO2 Mean Ox Delivery Rate 10/15 1619 98 Nasal 2.0L Cannula 10/15 1600 97 Nasal 2.0L Cannula 10/15 1600 98.7 87 18 102/58 97 Nasal 2.0L Cannula 10/15 1200 95 Nasal 3.0L Cannula 10/15 0929 98.1 92 18 94/58 96 Nasal 3.0L Cannula 10/15 0914 Nasal 3.0L Cannula 10/15 0715 100.7 20 100/48 96 Nasal 4.0L Cannula 10/15 0700 100.7 /08 0651 99.6 99 18 108/99 99 Room Air 10/15 0500 101.1 126 26 94/50 05/08 0439 101.1 10/15 0400 100.9 124 24 118/50 90 Nasal 4.0L Cannula 10/15 0112 98.2 114 20 105/53 94 Nasal 2.5L Cannula 10/15 0019 98.5 104 20 100/48 94 Nasal 3.0L Cannula 10/15 0000 93 Nasal 4.0L Cannula 10/15 0000 98.3 110 24 94/60 88 Nasal 3.0L Cannula 10/14 2322 99.1 10/14 2302 99.1 114 20 90/44 95 Nasal 2.0L Cannula 10/14 2206 103.0 116 24 95 Nasal 3.0L Cannula 10/143 99.1 125 26 106/51 95 Nasal 3.0L Cannula Intake & Output 10/15 0000 10/14 1600 10/14 0000 Intake Total 320 2450 2000 Output Total 150 Balance 320 2300 2000 Intake, Blood 350 Product Intake, IV 1850 2000 Intake, Oral 320 250 0 Number 1 Bowel Movements Output, Urine 150 Patient 94 lb 15.99 oz Weight Weight Bed scale Measurement Method Physical Exam: General: WD/WN female in NAD; alert and oriented x 3 HEENT: NC/AT, PERRL, EOMI Neck: no JVD, no carotid bruit Heart: RRR w/o murmur Lungs: No crackles but upper airway congestion Abdomen: soft, NT, +ve bowel sounds Extremities; no edema with venous stasis changes, legs are ecchymotic Assessment/Plan Assessment/Plan * This patient has a mildly elevated troponin that is trending downward. It jose david in the setting of sinus tachycardia at about 120bpm with severe anemia and respiratory distress with low oxygen saturation. I have no doubt that this patient has myocardial ischemia and, in fact, her prior echocardiogram showed a decreased EF with a regional wall motion abnormality. I do not think that this is an acute event or that it is a manifestation of an acute ruptured intracoronary plaque with thrombus. As such, I do not feel compelled to begin anticoagulation which would be problematic in this patient with evidence of a low H/H and bleeding. This is rather a type 2 [place] related to supply demand mismatch in the setting of otherwise stable but significant coronary artery disease. We will treat this medically. She is not a reasonable and safe candidate for acute intervention due to her breathing issues, inability to lie flat and very low platelets with bleeding. There is no acute injury current on her ECG and she is pain free. We will continue medical therapy with NTG paste 1/ 2 inch Q6 hrs or as tolerated by blood pressure. Maintain an H/H of approximately 10/28. Ensure adequate oxygenation. Monitor on telemetry in the CCU. Continue Lipitor 20mg daily. * This patient's blood pressue was borderline but is now improved. Her prior hypotension may have been related to sepsis, volume loss in the setting of bleeding or adrenal insufficiency due to being on prolonged steroid therapy. I do not think she is currently septic. Her congested cough is likely due to a bronchitis although a pneumonia cannot be unequivocally ruled out. Consider aspiration. Continue antibiotic therapy as recommended by infectious disease and continue steroids. * Check a TSH and free T4. Consult Acknowledgment - Thank you for your consult request.
[2017-10-15 21:28] LABS: ABSOLUTE BASOPHIL COUNT 0 /CUMM (0.0-0.2); ABSOLUTE EOSINOPHIL COUNT 0 /CUMM (0.0-0.7); ABSOLUTE GRANULOCYTE CT 6.3 /CUMM (1.4-6.5); ABSOLUTE LYMPH COUNT 1.3 /CUMM (1.2-3.4); ABSOLUTE MONOCYTE COUNT 0 /CUMM (0.10-0.60); BASOPHIL % 0.1 % (0.0-2.0); EOSINOPHIL % 0 % (0-5); GRANULOCYTE % 82.7 % (42.2-75.2); MEAN CORPUSCULAR HGB 27.2 PG (27.0-31.0); MEAN CORPUSCULAR HGB CONC 31.8 G/DL (33.0-37.0); MEAN CORPUSCULAR VOLUME 85.4 FL (81.0-99.0); MEAN PLATELET VOLUME 7.8 FL (7.4-10.4); PLATELET COUNT 164 /CUMM (130-400); RBC DISTRIBUTION WIDTH 23.2 % (11.5-14.5); WHITE BLOOD CELL COUNT 7.7 /CUMM (4.8-10.8)
[2017-10-15 21:49] LABS: HEMATOCRIT 28.8 % (37-47); RED BLOOD CELL CT 3.37 /CUMM (4.20-5.40)
[2017-10-16] VITALS: BP 104/50
[2017-10-16 05:26] LABS: ABSOLUTE BASOPHIL COUNT 0 /CUMM (0.0-0.2); ABSOLUTE EOSINOPHIL COUNT 0 /CUMM (0.0-0.7); ABSOLUTE GRANULOCYTE CT 3.9 /CUMM (1.4-6.5); ABSOLUTE LYMPH COUNT 1.5 /CUMM (1.2-3.4); ABSOLUTE MONOCYTE COUNT 0 /CUMM (0.10-0.60); BASOPHIL % 0 % (0.0-2.0); EOSINOPHIL % 0 % (0-5); GRANULOCYTE % 72.1 % (42.2-75.2); HEMATOCRIT 25.8 % (37-47); MEAN CORPUSCULAR HGB 27.3 PG (27.0-31.0); MEAN CORPUSCULAR VOLUME 85.3 FL (81.0-99.0); MEAN PLATELET VOLUME 8.4 FL (7.4-10.4); PLATELET COUNT 146 /CUMM (130-400); RBC DISTRIBUTION WIDTH 21.8 % (11.5-14.5); RED BLOOD CELL CT 3.02 /CUMM (4.20-5.40); WHITE BLOOD CELL COUNT 5.3 /CUMM (4.8-10.8)
--- NOTE | 2017-10-16 07:20 | PN- Resident CRCU ---
Subjective HPI/CRCU Issues: No issues overnight. Troponins peaked at 0.17 and trended down. Patient states that she does not having chest pain or palpitation. States shortness breath is okay. Is somewhat constipated. Has not yet had a bowel movement. Objective Vital Signs & I&O Last 8 Hrs of Vitals and I&O: Intake & Output 10/16 1600 Intake Total Output Total Balance Patient 96 lb 15.98 oz Weight Laboratory Tests 10/16 10/16 0600 0430 Chemistry Sodium (137 - 145 mmol/L) 137 Potassium (3.5 - 5.1 mmol/L) 2.7 *L Chloride (98 - 107 mmol/L) 102 Carbon Dioxide (22 - 30 mmol/L) 25 Anion Gap (5 - 16) 9 BUN (7 - 17 mg/dL) 12 Creatinine (0.5 - 1.0 mg/dL) 0.5 Estimated GFR (>60 ml/min) > 60 Glucose (65 - 99 mg/dL) 87 Calcium (8.4 - 10.2 mg/dL) 7.4 L Phosphorus (2.5 - 4.5 mg/dL) 2.5 Magnesium (1.6 - 2.3 mg/dL) 1.4 L Total Bilirubin (0.2 - 1.3 mg/dL) 0.5 Direct Bilirubin (< 0.4 mg/dL) 0.2 AST (14 - 36 U/L) 26 ALT (9 - 52 U/L) 41 Alkaline Phosphatase (<127 U/L) 133 H Total Protein (6.3 - 8.2 g/dL) 6.2 L Albumin (3.5 - 5.0 g/dL) 2.4 L 25-OH Vitamin D Total (30 - 100 ng/ml) Pending Free T4 (0.85 - 1.93 ng/dL) 1.52 Total T3 (0.97 - 1.69 ng/mL) 0.59 L TSH &T3 &Free T4 Intrp (0.270 - 4.20 uIU/mL) Cancelled 4.980 H PTH Intact (18.4 - 80.1 pg/ML) Pending Hematology CBC w Diff MAN DIFF ORDERED WBC (4.8 - 10.8 /CUMM) 5.3 RBC (4.20 - 5.40 /CUMM) 3.02 L Hgb (12.0 - 16.0 G/DL) 8.3 L Hct (37 - 47 %) 25.8 L MCV (81.0 - 99.0 FL) 85.3 MCH (27.0 - 31.0 PG) 27.3 MCHC (33.0 - 37.0 G/DL) 32.0 L RDW (11.5 - 14.5 %) 21.8 H Plt Count (130 - 400 /CUMM) 146 MPV (7.4 - 10.4 FL) 8.4 Gran % (42.2 - 75.2 %) 72.1 Lymphocytes % (20.5 - 51.1 %) 27.3 Monocytes % (1.7 - 9.3 %) 0.6 L Eosinophils % (0 - 5 %) 0 Basophils % (0.0 - 2.0 %) 0 Absolute Granulocytes (1.4 - 6.5 /CUMM) 3.9 Segmented Neutrophils (42.2 - 75.2 %) 65 Band Neutrophils (0.0 - 5.0 %) 2 Absolute Lymphocytes (1.2 - 3.4 /CUMM) 1.5 Lymphocytes (20.5 - 51.1 %) 28 Monocytes (1.7 - 9.3 %) 5 Absolute Monocytes (0.10 - 0.60 /CUMM) 0 L Absolute Eosinophils (0.0 - 0.7 /CUMM) 0 Absolute Basophils (0.0 - 0.2 /CUMM) 0 Nucleated RBCs (0.0 - 0.0 /100WBC) 3 H Platelet Estimate (ADEQUATE) ADEQUATE Polychromasia 1+ Hypochromic-Microcytic 1+ Poikilocytosis 2+ Anisocytosis 1+ Macrocytic Cells 1+ Ovalocytes 1+ Elliptocytes 1+ Other Body Source Fld Total RBCs Counted (%) 100 08 10/15 2115 1530 Chemistry Troponin I (< 0.11 ng/ml) 0.11 *H Hematology CBC w Diff MAN DIFF ORDERED WBC (4.8 - 10.8 /CUMM) 7.7 RBC (4.20 - 5.40 /CUMM) 3.37 L Hgb (12.0 - 16.0 G/DL) 9.2 L Hct (37 - 47 %) 28.8 L MCV (81.0 - 99.0 FL) 85.4 MCH (27.0 - 31.0 PG) 27.2 MCHC (33.0 - 37.0 G/DL) 31.8 L RDW (11.5 - 14.5 %) 23.2 H Plt Count (130 - 400 /CUMM) 164 MPV (7.4 - 10.4 FL) 7.8 Gran % (42.2 - 75.2 %) 82.7 H Lymphocytes % (20.5 - 51.1 %) 17.0 L Monocytes % (1.7 - 9.3 %) 0.2 L Eosinophils % (0 - 5 %) 0 Basophils % (0.0 - 2.0 %) 0.1 Absolute Granulocytes (1.4 - 6.5 /CUMM) 6.3 Segmented Neutrophils (42.2 - 75.2 %) 59 Band Neutrophils (0.0 - 5.0 %) 17 H Absolute Lymphocytes (1.2 - 3.4 /CUMM) 1.3 Lymphocytes (20.5 - 51.1 %) 20 L Monocytes (1.7 - 9.3 %) 2 Absolute Monocytes (0.10 - 0.60 /CUMM) 0 L Absolute Eosinophils (0.0 - 0.7 /CUMM) 0 Absolute Basophils (0.0 - 0.2 /CUMM) 0 Metamyelocytes (0.0 - 1.0 %) 1 Myelocytes (0 - 0 %) 1 H Platelet Estimate (ADEQUATE) ADEQUATE Hypochromic-Microcytic 2+ Anisocytosis 2+ Vital Signs Date Time Temp Pulse Resp B/P B/P Pulse O2 O2 Flow FiO2 Mean Ox Delivery Rate 10/17 0707 95 Nasal 3.0L Cannula 10/16 08 Nasal 3.0L Cannula 10/16 0000 97 Nasal 3.0L Cannula 10/16 0000 99.9 86 18 104/50 97 Nasal 3.0L Cannula 10/15 2200 98.9 92 18 110/62 94 Nasal 3.0L Cannula 10/15 1619 98 Nasal 2.0L Cannula 10/15 1600 97 Nasal 2.0L Cannula 10/15 1600 98.7 87 18 102/58 97 Nasal 2.0L Cannula 10/15 1200 95 Nasal 3.0L Cannula Intake & Output 10/16 1600 10/16 0800 10/16 0000 Intake Total 490 80 Output Total 1 Balance 490 79 Intake, IV 290 Intake, Oral 200 80 Number 1 1 Bowel Movements Output, Stool 1 Patient 96 lb 15.98 oz 97 lb Weight Exam General Appearance: no apparent distress, alert, awake Respiratory: basilar crackles were somewhat Gastrointestinal: normal bowel sounds, soft, non-tender Extremities: 2+ radial pulses, 1+ lower extremity edema Other Physical Findings: Stool guaiac positive Current Medications: Current Medications Sig/Zeb Start time Last Medication Dose Route Stop Time Status Admin Acetaminophen 325 MG Q6 PRN 10/15 0100 AC PO Albuterol Sulfate 3 ML EVERY 4 HRS/AWAKE 10/15 0830 AC 10/16 INH 0803 Calcium/Vitamin D 500 MG DAILY 10/16 1030 AC PO Ceftazidime 1,000 MG Q24H 10/15 2099 AC 10/15 IV 2100 Enoxaparin Sodium 30 MG DAILY 10/15 899 AC 10/16 SC 0806 Hydrocortisone 25 MG Q8 10/17 0600 AC Sodium Succinate IV Hydrocortisone 50 MG Q8 10/16 0600 AC 10/16 Sodium Succinate IV 10/17 0500 0516 Hydroxychloroquine 200 MG DAILY 10/15 899 AC 10/16 Sulfate PO 0806 Lidocaine 1 PAT DAILY@1300 10/15 1300 AC EXT Magnesium Oxide 400 MG ONE ONE 10/16 0645 DC 10/16 PO 10/16 0746 0806 Magnesium Sulfate 1 GM ONCE ONE 10/16 644 DC 10/16 Dextrose/Water 100 ML IV 10/16 1044 0814 Omeprazole 20 MG DAILY AC 10/15 0700 AC 10/16 PO 0625 Potassium Chloride 40 MEQ ONCE ONE 10/16 0815 DC 10/16 PO 10/16 0816 0820 Potassium Chloride 10 MEQ Q1H 10/16 644 DC 10/16 IV 10/16 0746 0805 Potassium Chloride 40 MEQ ONCE ONE 10/16 0645 DC 10/16 PO 10/16 0646 0658 Prednisone 10 MG DAILY 10/15 0800 DC 10/15 PO 1110 Tramadol HCl 50 MG Q6-PRN PRN 10/15 0300 AC 10/15 PO 0309 Vancomycin HCl 750 MG 2100 10/15 2099 AC 10/15 Sodium Chloride 250 ML IV 2355 Impression/Plan Impression/Problem List Impression: A: 86 year old female with past medical history significant for COPD on 2 L oxygen at night, lupus, MDS, hypertension and dyslipidemia was admitted overnight with chief complaint of lethargy, confusion, fever and chills found to have pneumonia , type II TN, and anemia with + stool guaiac Problems: Respiratory #COPD CT found severe emphsema with possible superimposed mild edema -cont trc nebs Infection: #Sepsis due to HCAP Presenting T-max 103, pulse 125, RR 26, blood pressure 106/51, saturating 95% on 2.[address] found patchy opacities at the lung bases, particularly at the left base representing atelectasis or pneumonia. CT abd was negative for any sources of sepsis. Continues to have no leukocytosis but patient has MDS. Flu and urinary strep pneumo/leigonaella negative. -f/u random vanc level -f/u cultures -nares serveillance for mrsa. If negative consider discontinuing vancomycin -Repeat speech and swallow eval for possible aspiration -cont vanc and ceftaz #Positive ucx Ucx growing 40k of enterococcus. Pt asymptomatic. -con to monitor for sings of infection Cardiac: #Type II TN Troponins peaked at .17. She was seen by cardiology. Prior echocardiogram showed a decreased EF with a regional wall motion abnormality. -cont NTG paste -cont lipitor -cont cardiology recs #Hypotension Hypotension possibly related to sepsis vs adreanal insuffiency vs anemia. TSH was was 4,98 (high), total t3 0.59 (low), and free t4 1.5 (normal). -cont abx -cont hydrocortisione taper for lupus Heme onc #MDS and anemia Initially presented with Hgb of 7.0. Patient has received 2 units of prbc thus far and hgb jose david to 9.2. Current Hgb 8.3. Stool guaiac positive -cont monitoring H/H -f/u GI consult -cont heme onc recs who recommends HCT>25% -f/u stool guaiac Metabolic #Electrolyte abnomaltieis K 2.7, Mg 1.4, Ca 7.4 -f/u vit D levels and PTH -f/u repeat BEP @ 1pm -consider restarting home vit D Alimentary #Hx of gerd -cont omeprazole #Mild ALP elevation Initial and repeat ALP elevated. other LFT WNL. -cont to monitor -conisder GGT Neuro #Hx of Lupus -cont hydroxychloroquine -cont IV steroid taper House: Pending PT eval DVT prophylaxis: mechanical for GI bleed Diet: Heart healthy diet Problem List: 1. Elevated alkaline phosphatase level 2. GI bleed 3. Anemia 4. MDS (myelodysplastic syndrome) 5. Hypotension 6. Type 2 myocardial infarction 7. HCAP (healthcare-associated pneumonia) 8. Sepsis 9. COPD (chronic obstructive pulmonary disease) Pain Ratin Tomorrow's Labs & Rationales: cbc bep mg phos calcium alp Plan DVT/Prophylaxis: lovenox
[2017-10-16 08:00] VITALS: BP 128/60
--- NOTE | 2017-10-16 08:32 | PN- Att Addend ---
Attending Addendum Attending Brief Note Patient was transferred to the intensive care unit yesterday as a telemetry hold as there were no beds available on the telemetry unit. She was transferred on account of rising troponin levels. Since her transfer she has remained hemodynamically stable. She was febrile with a T-max of 101.1 around 5 AM yesterday morning. Afebrile so far this morning. Blood pressure is borderline but acceptable. She was transfused 2 units of packed red blood cells yesterday. Hemoglobin level improved to 9.2 last night but is 8.3 this morning. She is mentating appropriately. She is alert and oriented 3. Answers questions appropriately this morning. She denies chest pain or shortness of breath. She denied cough. She denied abdominal pain. Nursing staff reports she is moving her bowels. Nursing staff reports negative stool guaiac yesterday however there is no documentation in the EHR. I have asked for this to be repeated this morning. Appreciate consultation provided by the cardiology and infectious disease service yesterday. Vital Signs Date Time Temp Pulse Resp B/P B/P Pulse O2 O2 Flow FiO2 Mean Ox Delivery Rate 10/17 0707 95 Nasal 3.0L Cannula 10/16 0000 97 Nasal 3.0L Cannula 10/16 0000 99.9 86 18 104/50 97 Nasal 3.0L Cannula 10/15 2200 98.9 92 18 110/62 94 Nasal 3.0L Cannula 10/15 1619 98 Nasal 2.0L Cannula 10/15 1600 97 Nasal 2.0L Cannula 10/15 1600 98.7 87 18 102/58 97 Nasal 2.0L Cannula 10/15 1200 95 Nasal 3.0L Cannula 10/15 0929 98.1 92 18 94/58 96 Nasal 3.0L Cannula 10/15 0914 Nasal 3.0L Cannula General appearance: Elderly lady, lean, not in any acute distress. HEENT: Anicteric, mild pallor, pupils equal and reactive. Neck: Supple with no jugular venous distention. Heart: S1-S2 regular . Lungs: Diminished breath sounds bilaterally. Abdomen: Nondistended with normal bowel sounds. Soft, nontender with no palpable masses. Extremities: No pedal edema. Bilateral chronic discoloration, likely due to combination of venous insufficiency and capillary bleeding. Laboratory Tests 10/16/17 0600: TSH &T3 &Free T4 Intrp Cancelled 10/16/17 0430: Anion Gap 9, Estimated GFR > 60, Glucose 87, Calcium 7.4 L, Phosphorus 2.5, Magnesium 1.4 L, Total Bilirubin 0.5, AST 26, ALT 41, Albumin 2.4 L, 25-OH Vitamin D Total Pending, Free T4 1.52, Total T3 0.59 L, TSH &T3 &Free T4 Intrp 4.980 H, CBC w Diff MAN DIFF ORDERED, RBC 3.02 L, MCV 85.3, MCH 27.3, MCHC 32.0 L, RDW 21.8 H, MPV 8.4, Gran % 72.1, Lymphocytes % 27.3, Monocytes % 0.6 L, Eosinophils % 0, Basophils % 0, Absolute Granulocytes 3.9, Segmented Neutrophils 65, Band Neutrophils 2, Absolute Lymphocytes 1.5, Lymphocytes 28, Monocytes 5, Absolute Monocytes 0 L, Absolute Eosinophils 0, Absolute Basophils 0, Nucleated RBCs 3 H, Platelet Estimate ADEQUATE, Polychromasia 1+, Hypochromic-Microcytic 1+, Poikilocytosis 2+, Anisocytosis 1+, Macrocytic Cells 1+, Ovalocytes 1+, Elliptocytes 1+, Fld Total RBCs Counted 100 10/15/17 2115: CBC w Diff MAN DIFF ORDERED, RBC 3.37 L, MCV 85.4, MCH 27.2, MCHC 31.8 L, RDW 23.2 H, MPV 7.8, Gran % 82.7 H, Lymphocytes % 17.0 L, Monocytes % 0.2 L, Eosinophils % 0, Basophils % 0.1, Absolute Granulocytes 6.3, Segmented Neutrophils 59, Band Neutrophils 17 H, Absolute Lymphocytes 1.3, Lymphocytes 20 L, Monocytes 2, Absolute Monocytes 0 L, Absolute Eosinophils 0, Absolute Basophils 0, Metamyelocytes 1, Myelocytes 1 H, Platelet Estimate ADEQUATE, Hypochromic-Microcytic 2+, Anisocytosis 2+ 10/15/17 1530: Troponin I 0.11 *H Microbiology 10/16 2011 UPPER RESP: Surveillance Culture - RECD 10/15 1954 URINE ROUT: Legionella Antigen - COMP 10/15 1954 URINE ROUT: Streptococcus pneumoniae Antigen (M - COMP 10/15 1948 LOWER RESP: Respiratory Culture - COLB 10/15 1948 LOWER RESP: Gram Stain - COLB Problems: 1. Pneumonia; likely secondary to gram-negative pathogen. Patient grew Pseudomonas in the past 2. Sepsis; secondary to above 3. Non-ST elevation myocardial infarction secondary to demand mismatch. 4. Anemia secondary to myelodysplastic syndrome 5. Chronic hypoxic respiratory failure secondary to COPD 6. Hypertension 7. Lupus Plan: -Continue current antibiotic regimen. Follow-up nares surveillance culture for MRSA. If negative consider discontinuing vancomycin. -We will repeat swallow evaluation during this admission. -Continue stress dosing of steroids. She will receive hydrocortisone 50 mg every 8 hours today and then 25 mg every 8 hours starting tomorrow. -Follow recommendations of the cardiology service. -H&H appears to be trending down again. Please ensure his stool guaiac is checked. If positive would recommend GI consultation. -Please schedule family meeting to discuss goals of care.
--- NOTE | 2017-10-16 08:41 | PN- Hematology ---
Subjective Subjective: Feeling better, 12 point review of systems otherwise unchanged Objective Vital Signs and I&Os Vital Signs Date Time Temp Pulse Resp B/P B/P Pulse O2 O2 Flow FiO2 Mean Ox Delivery Rate 10/16 806 95 Nasal 3.0L Cannula 10/17 799 Nasal 3.0L Cannula 10/16 0000 97 Nasal 3.0L Cannula 10/16 0000 99.9 86 18 104/50 97 Nasal 3.0L Cannula 10/15 2200 98.9 92 18 110/62 94 Nasal 3.0L Cannula 10/15 1619 98 Nasal 2.0L Cannula 10/15 1600 97 Nasal 2.0L Cannula 10/15 1600 98.7 87 18 102/58 97 Nasal 2.0L Cannula 10/15 1200 95 Nasal 3.0L Cannula 10/15 0929 98.1 92 18 94/58 96 Nasal 3.0L Cannula 10/15 0914 Nasal 3.0L Cannula Intake & Output 10/16 1600 10/16 0810/16 0000 10/15 1600 10/15 0810/15 0000 Intake Total 490 80 320 2450 2000 Output Total 1 150 Balance 490 79 320 2300 1999 Intake, Blood 350 Product Intake, IV 290 1850 1999 Intake, Oral 200 80 320 250 0 Number 1 1 1 Bowel Movements Output, Stool 1 Output, Urine 150 Patient 96 lb 15.98 oz 97 lb 94 lb 15.99 oz Weight Weight Bed scale Measurement Method Gen.: in NAD ENT: Sclera anicteric Chest: Normal respiratory effort, decrease breath sounds Cor: RRR, no extra sounds Abdomen: Soft, bowel sounds present, no tenderness, no rebound Extremities: Without clubbing, cyanosis, or asymmetric edema Neurology: Alert and oriented 3, no gross deficit Current Medications: Current Medications Sig/Zeb Start time Last Medication Dose Route Stop Time Status Admin Acetaminophen 325 MG Q6 PRN 10/15 0100 AC PO Albuterol Sulfate 3 ML EVERY 4 HRS/AWAKE 10/15 929 AC 10/16 INH 0803 Ceftazidime 1,000 MG Q24H 10/15 2099 AC 10/15 IV 2100 Enoxaparin Sodium 30 MG DAILY 10/15 899 AC 10/16 SC 0806 Hydrocortisone 25 MG Q8 10/17 06 AC Sodium Succinate IV Hydrocortisone 50 MG Q8 10/16 599 AC 10/16 Sodium Succinate IV 10/17 0500 0516 Hydroxychloroquine 200 MG DAILY 10/15 899 AC 10/16 Sulfate PO 0806 Lidocaine 1 PAT DAILY@1300 05 1300 AC EXT Magnesium Oxide 400 MG ONE ONE 10/16 744 DC 10/16 PO 10/16 745 08 Magnesium Sulfate 1 GM ONCE ONE 10/16 644 AC 10/16 Dextrose/Water 100 ML IV 10/16 1044 0814 Omeprazole 20 MG DAILY AC 10/15 0700 AC 10/16 PO 0625 Potassium Chloride 40 MEQ ONCE ONE 10/17 0715 DC 10/16 PO 10/16 0816 0820 Potassium Chloride 10 MEQ Q1H 10/16 644 DC 10/16 IV 10/16 0646 0805 Potassium Chloride 40 MEQ ONCE ONE 10/16 644 DC 10/16 PO 10/16 645 0658 Potassium Chloride 40 MEQ .STK-MED ONE 10/15 906 DC PO 10/15 0908 Prednisone 10 MG DAILY 10/15 899 DC 10/15 PO 1110 Tramadol HCl 50 MG Q6-PRN PRN 10/15 0300 AC 10/15 PO 0309 Vancomycin HCl 750 MG 2100 10/15 2100 AC 10/15 Sodium Chloride 250 ML IV 2355 Results Last 24 Hours of Lab Results: Laboratory Tests 10/16 10/16 0600 0430 Chemistry Sodium (137 - 145 mmol/L) 137 Potassium (3.5 - 5.1 mmol/L) 2.7 *L Chloride (98 - 107 mmol/L) 102 Carbon Dioxide (22 - 30 mmol/L) 25 Anion Gap (5 - 16) 9 BUN (7 - 17 mg/dL) 12 Creatinine (0.5 - 1.0 mg/dL) 0.5 Estimated GFR (>60 ml/min) > 60 Glucose (65 - 99 mg/dL) 87 Calcium (8.4 - 10.2 mg/dL) 7.4 L Phosphorus (2.5 - 4.5 mg/dL) 2.5 Magnesium (1.6 - 2.3 mg/dL) 1.4 L Total Bilirubin (0.2 - 1.3 mg/dL) 0.5 AST (14 - 36 U/L) 26 ALT (9 - 52 U/L) 41 Albumin (3.5 - 5.0 g/dL) 2.4 L 25-OH Vitamin D Total (30 - 100 ng/ml) Pending Free T4 (0.85 - 1.93 ng/dL) 1.52 Total T3 (0.97 - 1.69 ng/mL) 0.59 L TSH &T3 &Free T4 Intrp (0.270 - 4.20 uIU/mL) Cancelled 4.980 H Hematology CBC w Diff MAN DIFF ORDERED WBC (4.8 - 10.8 /CUMM) 5.3 RBC (4.20 - 5.40 /CUMM) 3.02 L Hgb (12.0 - 16.0 G/DL) 8.3 L Hct (37 - 47 %) 25.8 L MCV (81.0 - 99.0 FL) 85.3 MCH (27.0 - 31.0 PG) 27.3 MCHC (33.0 - 37.0 G/DL) 32.0 L RDW (11.5 - 14.5 %) 21.8 H Plt Count (130 - 400 /CUMM) 146 MPV (7.4 - 10.4 FL) 8.4 Gran % (42.2 - 75.2 %) 72.1 Lymphocytes % (20.5 - 51.1 %) 27.3 Monocytes % (1.7 - 9.3 %) 0.6 L Eosinophils % (0 - 5 %) 0 Basophils % (0.0 - 2.0 %) 0 Absolute Granulocytes (1.4 - 6.5 /CUMM) 3.9 Segmented Neutrophils (42.2 - 75.2 %) 65 Band Neutrophils (0.0 - 5.0 %) 2 Absolute Lymphocytes (1.2 - 3.4 /CUMM) 1.5 Lymphocytes (20.5 - 51.1 %) 28 Monocytes (1.7 - 9.3 %) 5 Absolute Monocytes (0.10 - 0.60 /CUMM) 0 L Absolute Eosinophils (0.0 - 0.7 /CUMM) 0 Absolute Basophils (0.0 - 0.2 /CUMM) 0 Nucleated RBCs (0.0 - 0.0 /100WBC) 3 H Platelet Estimate (ADEQUATE) ADEQUATE Polychromasia 1+ Hypochromic-Microcytic 1+ Poikilocytosis 2+ Anisocytosis 1+ Macrocytic Cells 1+ Ovalocytes 1+ Elliptocytes 1+ Other Body Source Fld Total RBCs Counted (%) 100 08 10/15 9685 1530 Chemistry Troponin I (< 0.11 ng/ml) 0.11 *H Hematology CBC w Diff MAN DIFF ORDERED WBC (4.8 - 10.8 /CUMM) 7.7 RBC (4.20 - 5.40 /CUMM) 3.37 L Hgb (12.0 - 16.0 G/DL) 9.2 L Hct (37 - 47 %) 28.8 L MCV (81.0 - 99.0 FL) 85.4 MCH (27.0 - 31.0 PG) 27.2 MCHC (33.0 - 37.0 G/DL) 31.8 L RDW (11.5 - 14.5 %) 23.2 H Plt Count (130 - 400 /CUMM) 164 MPV (7.4 - 10.4 FL) 7.8 Gran % (42.2 - 75.2 %) 82.7 H Lymphocytes % (20.5 - 51.1 %) 17.0 L Monocytes % (1.7 - 9.3 %) 0.2 L Eosinophils % (0 - 5 %) 0 Basophils % (0.0 - 2.0 %) 0.1 Absolute Granulocytes (1.4 - 6.5 /CUMM) 6.3 Segmented Neutrophils (42.2 - 75.2 %) 59 Band Neutrophils (0.0 - 5.0 %) 17 H Absolute Lymphocytes (1.2 - 3.4 /CUMM) 1.3 Lymphocytes (20.5 - 51.1 %) 20 L Monocytes (1.7 - 9.3 %) 2 Absolute Monocytes (0.10 - 0.60 /CUMM) 0 L Absolute Eosinophils (0.0 - 0.7 /CUMM) 0 Absolute Basophils (0.0 - 0.2 /CUMM) 0 Metamyelocytes (0.0 - 1.0 %) 1 Myelocytes (0 - 0 %) 1 H Platelet Estimate (ADEQUATE) ADEQUATE Hypochromic-Microcytic 2+ Anisocytosis 2+ Cultures-negative thus far Assessment/Plan Hematology Assessment/Recommendations: 1. fever-patient clinically improved As per ID 2. MDS-transfusion parameters outlined
--- NOTE | 2017-10-16 11:34 | PN- Infect Dx ---
Subjective Subjective: Afebrile on steroids. She feels well with no complaints. Her cough has improved and it remains nonproductive. Objective Last 24 Hrs of Vital Signs/I&O Vital Signs Date Time Temp Pulse Resp B/P B/P Pulse O2 O2 Flow FiO2 Mean Ox Delivery Rate 10/16 0807 95 Nasal 3.0L Cannula 10/16 08 Nasal 3.0L Cannula 10/16 0000 97 Nasal 3.0L Cannula 10/16 0000 99.9 86 18 104/50 97 Nasal 3.0L Cannula 10/15 2200 98.9 92 18 110/62 94 Nasal 3.0L Cannula 10/15 1619 98 Nasal 2.0L Cannula 10/15 1600 97 Nasal 2.0L Cannula 10/15 1600 98.7 87 18 102/58 97 Nasal 2.0L Cannula 10/15 1200 95 Nasal 3.0L Cannula Intake & Output 10/16 1600 10/16 0800 10/16 0000 Intake Total 490 80 Output Total 1 Balance 490 79 Intake, IV 290 Intake, Oral 200 80 Number 1 1 Bowel Movements Output, Stool 1 Patient 96 lb 15.98 oz 97 lb Weight Physical Exam Other Physical Findings: She appears comfortable in no acute distress Lungs bibasilar crackles, right greater than left Heart regular rhythm with no murmur Abdomen soft, nontender with positive bowel sounds Extremities no cyanosis, clubbing or edema Results Last 24 Hours of Lab Results: Laboratory Tests 10/16 10/16 0600 0430 Chemistry Sodium (137 - 145 mmol/L) 137 Potassium (3.5 - 5.1 mmol/L) 2.7 *L Chloride (98 - 107 mmol/L) 102 Carbon Dioxide (22 - 30 mmol/L) 25 Anion Gap (5 - 16) 9 BUN (7 - 17 mg/dL) 12 Creatinine (0.5 - 1.0 mg/dL) 0.5 Estimated GFR (>60 ml/min) > 60 Glucose (65 - 99 mg/dL) 87 Calcium (8.4 - 10.2 mg/dL) 7.4 L Phosphorus (2.5 - 4.5 mg/dL) 2.5 Magnesium (1.6 - 2.3 mg/dL) 1.4 L Total Bilirubin (0.2 - 1.3 mg/dL) 0.5 Direct Bilirubin (< 0.4 mg/dL) 0.2 AST (14 - 36 U/L) 26 ALT (9 - 52 U/L) 41 Alkaline Phosphatase (<127 U/L) 133 H Total Protein (6.3 - 8.2 g/dL) 6.2 L Albumin (3.5 - 5.0 g/dL) 2.4 L 25-OH Vitamin D Total (30 - 100 ng/ml) Pending Free T4 (0.85 - 1.93 ng/dL) 1.52 Total T3 (0.97 - 1.69 ng/mL) 0.59 L TSH &T3 &Free T4 Intrp (0.270 - 4.20 uIU/mL) Cancelled 4.980 H PTH Intact (18.4 - 80.1 pg/ML) Pending Hematology CBC w Diff MAN DIFF ORDERED WBC (4.8 - 10.8 /CUMM) 5.3 RBC (4.20 - 5.40 /CUMM) 3.02 L Hgb (12.0 - 16.0 G/DL) 8.3 L Hct (37 - 47 %) 25.8 L MCV (81.0 - 99.0 FL) 85.3 MCH (27.0 - 31.0 PG) 27.3 MCHC (33.0 - 37.0 G/DL) 32.0 L RDW (11.5 - 14.5 %) 21.8 H Plt Count (130 - 400 /CUMM) 146 MPV (7.4 - 10.4 FL) 8.4 Gran % (42.2 - 75.2 %) 72.1 Lymphocytes % (20.5 - 51.1 %) 27.3 Monocytes % (1.7 - 9.3 %) 0.6 L Eosinophils % (0 - 5 %) 0 Basophils % (0.0 - 2.0 %) 0 Absolute Granulocytes (1.4 - 6.5 /CUMM) 3.9 Segmented Neutrophils (42.2 - 75.2 %) 65 Band Neutrophils (0.0 - 5.0 %) 2 Absolute Lymphocytes (1.2 - 3.4 /CUMM) 1.5 Lymphocytes (20.5 - 51.1 %) 28 Monocytes (1.7 - 9.3 %) 5 Absolute Monocytes (0.10 - 0.60 /CUMM) 0 L Absolute Eosinophils (0.0 - 0.7 /CUMM) 0 Absolute Basophils (0.0 - 0.2 /CUMM) 0 Nucleated RBCs (0.0 - 0.0 /100WBC) 3 H Platelet Estimate (ADEQUATE) ADEQUATE Polychromasia 1+ Hypochromic-Microcytic 1+ Poikilocytosis 2+ Anisocytosis 1+ Macrocytic Cells 1+ Ovalocytes 1+ Elliptocytes 1+ Other Body Source Fld Total RBCs Counted (%) 100 10/15 10/15 2115 1530 Chemistry Troponin I (< 0.11 ng/ml) 0.11 *H Hematology CBC w Diff MAN DIFF ORDERED WBC (4.8 - 10.8 /CUMM) 7.7 RBC (4.20 - 5.40 /CUMM) 3.37 L Hgb (12.0 - 16.0 G/DL) 9.2 L Hct (37 - 47 %) 28.8 L MCV (81.0 - 99.0 FL) 85.4 MCH (27.0 - 31.0 PG) 27.2 MCHC (33.0 - 37.0 G/DL) 31.8 L RDW (11.5 - 14.5 %) 23.2 H Plt Count (130 - 400 /CUMM) 164 MPV (7.4 - 10.4 FL) 7.8 Gran % (42.2 - 75.2 %) 82.7 H Lymphocytes % (20.5 - 51.1 %) 17.0 L Monocytes % (1.7 - 9.3 %) 0.2 L Eosinophils % (0 - 5 %) 0 Basophils % (0.0 - 2.0 %) 0.1 Absolute Granulocytes (1.4 - 6.5 /CUMM) 6.3 Segmented Neutrophils (42.2 - 75.2 %) 59 Band Neutrophils (0.0 - 5.0 %) 17 H Absolute Lymphocytes (1.2 - 3.4 /CUMM) 1.3 Lymphocytes (20.5 - 51.1 %) 20 L Monocytes (1.7 - 9.3 %) 2 Absolute Monocytes (0.10 - 0.60 /CUMM) 0 L Absolute Eosinophils (0.0 - 0.7 /CUMM) 0 Absolute Basophils (0.0 - 0.2 /CUMM) 0 Metamyelocytes (0.0 - 1.0 %) 1 Myelocytes (0 - 0 %) 1 H Platelet Estimate (ADEQUATE) ADEQUATE Hypochromic-Microcytic 2+ Anisocytosis 2+ Last 24 Hours of Red Results: Blood cultures October 14 negative Urine culture October 14 negative Urine strep pneumo antigen and Legionella antigen October 15 negative Assessment/Plan ID Impression: Improving, with temperatures now normal (on steroids) and with her white blood cell count remaining normal despite steroids, 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 She has no other obvious source of sepsis. Suggestion: 1. Would attempt to obtain a sputum culture 2. Add a random Vancomycin level to this morning's labs 3. Follow-up nares surveillance culture for MRSA 4. Further doses of Vancomycin based on above 5. Continue Ceftazidime
[2017-10-16 13:02] VITALS: BP 112/50
--- NOTE | 2017-10-16 13:33 | Discharge Summary ---
Visit Information Visit Dates Admission Date: 10/15/17 Discharge Date: 10/21/2017 Hospital Course Course Attending Physician: Felice Lopez MD Primary Care Physician: Lauryn PROCTOR,Rio Bain Hospital Course: Ms Aguirre is an 86 year old female with past medical history significant for COPD on 2 L oxygen at night, lupus, MDS, hypertension and dyslipidemia was admitted to [facility] with chief complaint of lethargy, confusion, fever and chills found to have pneumonia, type II TX, and anemia with + stool guaiac. At the time of admission temperature 103, pulse 116, respiration 24, saturating 94% on 3L via nasal cannula. WBC 4.2. H&H 7/22.0. Sodium 136, potassium 5.1. When necessary 18. Creatinine 0.8. Lactic acid 4.5. Alk Phos 128. She was initially admitted to general medicine but transferred to telemetry given her elevated troponins. Once managed with input of cardiology she was subsequently transferred back to the Gen. medical service. Below is a summary of the care she received under us. #Sepsis due to Presumed Pneumonia The patient presented with lethargy, confusion, fever and lactic acidosis. CT found patchy opacities at the lung bases, particularly at the left base representing atelectasis/pneumonia. Flu and urinary strep pneumo/leigonaella were negative. CT abd was negative for any sources of sepsis. She did not present with leukocytosis but she has a history of MDS. She was started on vancomycin and ceftaz for HCAP coverage as she was recently hospitalized from July 29- August 23 for pneumonia. Her lactic acidosis improved after fluids.We obtained an infectious disease consultation. On 10/18/2017 we change the patient's antibiotic to levofloxacin. She was subsequently discharged to continue levofloxacin for a total of 10 days of antibiotic coverage. Nares surveillance was also positive for MRSA. Neutropenic and contact precautions were maintained. #Type II TX Troponins peaked at .17. Her troponins jose david in the setting of sinus tachy, anemia, and resptory distress due to presumed pneumonia. Cardiology did not believe this was an acute event. and prior echocardiogram showed a decreased EF with a regional wall motion abnormality. She was treated medically with NTG paste and lipitor. Discharged home with Lipitor & Nitroglycerine Paste/Ointment Q 6 Hours and instructions to follow-up with the radio communications superintendent as outpatient within one week. #COPD The patient has a history of COPD. She was treated with [facility] durign admission. CT found severe emphsema with possible superimposed mild edema. An Incentive spirometer was also provided. #Hypotension The patient presented with hypotension most likely of multifactorial origin related to sepsis vs adreanal insuffiency vs anemia. The patient who is on prednisone chronically for her lupus. TSH was was 4.98 (high), total t3 0.59 ( low), and free t4 1.5 (normal). She was started on hydrocorotisone IV and given these as a stress dose steroids. This was subsequently titrated down patient was continued on prednisone 10 mg by mouth to be continued as an outpatient. #GI bleed in the setting MDS with chronic anemia Initially presented with Hgb of 7.0. Patient initially received 2 units of prbc and hgb jose david to 9.2. Over the admission she received 1 more unit of PRBCs making the total transfused units 3. She remained asymptomatic over the course of her admission. A CBC was ordered for followed up in a week. #Mild ALP elevation At the time of presentation the patient did have an elevation of alkaline phosphatase. Other LFTs were within normal limits. She was advised to check an ALK Phosphatase as an outpatient under the care of her primary care physician. #Electrolyte abnomalities Patients electrolytes were routinely monitored and topped up as needed. She remained asymptomatic course of admission. #Hx of GERD She was continued on omeprazole during the course of admission. #Hx of Lupus We continued hydroxychloroquine 200 mg. time of discharge she was also instructions to follow-up with her steroids of prednisone 5 mg twice a day. During initial admission patient was a full code however this was changed to a DNR after subsequent conversation with the patient and her daughter. Allergies: Coded Allergies: NO KNOWN ALLERGIES (06/06/15) Pertinent Lab Results: SERVICE DATE: 10/14/17-2020 EXAM TYPE: RAD - XRY-PORTABLE CHEST XRAY EXAMINATION: XR PORTABLE CHEST CLINICAL INFORMATION: Fever and confusion COMPARISON: 08/06/2017 and 08/10/2017 TECHNIQUE: Portable frontal view of the chest was obtained. FINDINGS: Interval improvement compared to the prior chest radiographs. Chronic pulmonary emphysema and apparent chronic thickening of the bronchial castro, as well. Patchy groundglass opacities previously observed within the right mid and lower lung appear resolved. No new pulmonary infiltrates. No pneumothorax or pleural effusion. Cardiac silhouette is normal in size. Atherosclerotic calcification of the aorta. Skeletal findings include multiple old left-sided rib fractures. IMPRESSION: 1. Chronic obstructive pulmonary disease. 2. No new pulmonary findings compared to 08/10/2017. In fact, there is interval improvement, with apparent resolution of the previously noted groundglass pulmonary opacities. DICTATED BY: Nick Swain MD SERVICE DATE: 10/14/17 EXAM TYPE: CAT - CT ABD & PELVIS W IV CONTRAST; CT CHEST W IV CONTRAST EXAMINATION: CT CHEST WITH CONTRAST CT ABDOMEN AND PELVIS WITH CONTRAST CLINICAL INFORMATION: Sepsis. COMPARISON: 07/31/2017 TECHNIQUE: Multidetector volumetric imaging was performed through the chest, abdomen and pelvis following the administration of 95 mL of Optiray 320 intravenous contrast. Sagittal and coronal reformatted images were obtained on the technologist's workstation. Axial MIP volume rendering provided. DLP: 300 mGy-cm. FINDINGS: CHEST: Lungs: The central airways are patent. There is severe emphysema, greatest in the upper lobes with centrilobular and paraseptal components. There is bibasilar patchy opacity, left greater than right. Additional patchy opacity in the lingula at the base. Prominent interlobular septal thickening. This is similar to prior. No significant pleural effusion. No pneumothorax. Mediastinum: The heart is normal in size. No pericardial effusion. Small mediastinal lymph nodes are present, which are similar to prior. No pathologic enlargement. Chest Wall/Axilla: No lymphadenopathy. No chest wall mass. ABDOMEN/PELVIS: Liver, Gallbladder, Biliary Tree: The liver is normal in size, shape, and attenuation. No focal hepatic lesion or biliary ductal dilatation is present. The gallbladder is unremarkable with no evidence of radiopaque gallstones, gallbladder wall thickening, or pericholecystic inflammatory changes. Pancreas: Unremarkable. Spleen: Unremarkable. Adrenal Glands: Unremarkable. Kidneys and Ureters: The kidneys are normal in size, shape, and attenuation. No hydronephrosis, hydroureter or calculi seen. No perinephric stranding. Bladder: Unremarkable. Gastrointestinal Tract: The stomach is unremarkable. The small bowel is normal in caliber. There is no obstruction. No colonic wall thickening or inflammatory change. No free air or free fluid. The appendix is unremarkable. Abdominal Wall: No hernia is demonstrated. Lymphovascular Structures: Lymph nodes: Normal. Vascular: Normal caliber aorta with moderate atherosclerotic calcifications. Pelvic Viscera: Pessary in place. No adnexal mass. OSSEOUS STRUCTURES: No suspicious sclerotic or lytic bone lesions are identified. Scoliotic curvature of the spine. Multilevel degenerative changes. Mild degenerative changes of the hips. IMPRESSION: 1. Patchy opacities at the lung bases, particularly at the left base. This could represent atelectasis or pneumonia. 2. Severe emphysema. There is interlobular septal thickening which may be chronic, although superimposed mild edema is possible. 3. No acute inflammatory changes of the abdomen or pelvis. Disposition Summary Disposition Principal Diagnosis: Sepsis presumed to be caused by Pneumonia Additional Diagnosis: MDS HLD HTN Discharge Disposition: SNF Discharge Instructions General Discharge Information Code Status: Do Not Resucitate Patient's Diet: Heart Health Patient's Activity: As Tolerated Follow-Up Instructions/Appts: Please follow up with your primary care physician within 7 days. Please follow-up with assurance senior manager insurance/oncologist within 7 days. While you were in the hospital your Darbepoetin Delmar was not given, please follow up as an outpatient to get this. Please follow-up with a radio communications superintendent within 7 days, we have provided you with a referral. Medications at Discharge Discharge Medications: Stop taking the following medications: Prednisone (Prednisone) 10 MG TABLET ORAL DAILY Qty = 3 Prednisone (Prednisone) 10 MG TABLET ORAL DAILY Qty = 6 Prednisone (Prednisone) 20 MG TABLET ORAL DAILY Qty = 3 Continue taking these medications: Hydroxychloroquine Sulfate (Hydroxychloroquine Sulfate) 200 MG TABLET 1 Tablet ORAL DAILY Qty = 60 Comments: Last Taken: 10/21/17 Time: 0845 AM Prednisone (Prednisone) 5 MG TABLET 1 Tablet ORAL TWICE DAILY Qty = 100 Instructions: Start taking on 08/30 after the taper is complete Comments: Last Taken: 10/19/17 Time: 0900 AM Cholecalciferol (Vitamin D3) (Vitamin D3) 2,000 UNIT TABLET 1 Tablet ORAL DAILY Comments: NOT GIVEN IN HOSPITAL Omeprazole Magnesium (Prilosec Otc) 20 MG TABLET.DR 1 20MG ORAL DAILY Comments: Last Taken: 10/21/17 Time: 0600 AM Lidocaine (Lidoderm) 5 % ADH..PATCH 1 Patch ON SKIN DAILY Qty = 10 Comments: Last Taken: 10/19/17 Time: 1:00 PM Acetaminophen (Tylenol Extra Strength) 500 MG TABLET 1 Tablet ORAL THREE TIMES DAILY Qty = 10 Comments: Last Taken: 10/16/17 Time: 9 PM Potassium Chloride (Potassium Chloride) 10 MEQ TABLET.ER 1 Tablet ORAL TWICE DAILY Qty = 30 Comments: DID NOT ADMINISTER IN HOSPITAL Start taking the following new medications: Atorvastatin Calcium (Atorvastatin Calcium) 20 MG TABLET 20 Milligram ORAL 5 PM Qty = 30 No Refills Comments: Last Taken: 10/20/17 Time: 5 PM Nitroglycerin (Nitro-Bid) 2 % OINT...G. 0.5 Gram On the skin EVERY SIX HOURS Qty = 2 No Refills Comments: Last Taken: 10/21/17 Time: 1255 PM Levofloxacin (Levofloxacin) 250 MG TABLET 1 Tablet ORAL DAILY Qty = 3 No Refills Comments: Last Taken: 10/21/17 Time: 1255 PM Copies To: Jessica PROCTOR,Felice; Lauryn PROCTOR,Rio Thompson MD,Niranjan Saunders; May PROCTOR,Ravinder Snider; Niko PROCTOR PHD,Jeronimo Frausto
[2017-10-16 14:31] VITALS: BP 100/56
--- NOTE | 2017-10-16 14:42 | PN- Cardiology ---
Subjective Subjective: * Breathing is improved. No chest pain. Patient is too weak to stand. * sinus rhythm * persistent moderate to severe anemia Objective Vital Signs and I&Os Vital Signs Date Time Temp Pulse Resp B/P B/P Pulse O2 O2 Flow FiO2 Mean Ox Delivery Rate 10/16 1431 98.0 83 18 100/56 95 Nasal 4.0L Cannula 10/16 1302 97.7 85 18 112/50 97 Nasal 3.0L Cannula 10/16 1232 Nasal 3.0L Cannula 10/16 0807 95 Nasal 3.0L Cannula 10/16 0800 Nasal 3.0L Cannula 10/16 08 98.9 84 20 128/60 94 Nasal 3.0L Cannula 10/16 0000 97 Nasal 3.0L Cannula 10/16 0000 99.9 86 18 104/50 97 Nasal 3.0L Cannula 10/15 2200 98.9 92 18 110/62 94 Nasal 3.0L Cannula 10/15 1619 98 Nasal 2.0L Cannula 10/15 1600 97 Nasal 2.0L Cannula 10/15 1600 98.7 87 18 102/58 97 Nasal 2.0L Cannula Intake & Output 10/16 1600 10/16 0800 05/09 0000 /08 1600 10/15 0800 05/08 0000 Intake Total 490 80 320 2450 2000 Output Total 1 150 Balance 490 79 320 2300 2000 Intake, Blood 350 Product Intake, IV 290 1850 2000 Intake, Oral 200 80 320 250 0 Number 1 1 1 Bowel Movements Output, Stool 1 Output, Urine 150 Patient 96 lb 15.98 oz 97 lb 94 lb 15.99 oz Weight Weight Bed scale Measurement Method Physical Exam: General: WD/WN female in NAD; alert and oriented x 3 HEENT: NC/AT, PERRL, EOMI Neck: no JVD, no carotid bruit Heart: RRR w/o murmur Lungs: No crackles or wheezing Abdomen: soft, NT, +ve bowel sounds Extremities; no edema with venous stasis changes, legs are ecchymotic Assessment/Plan Assessment/Plan * This patient had a mildly elevated troponin that trended downward. It jose david in the setting of sinus tachycardia at about 120bpm with severe anemia and respiratory distress with low oxygen saturation. I have no doubt that this patient has myocardial ischemia and, in fact, her prior echocardiogram showed a decreased EF with a regional wall motion abnormality. I do not think that this is an acute event or that it is a manifestation of an acute ruptured intracoronary plaque with thrombus. As such, I do not feel compelled to begin anticoagulation which would be problematic in this patient with evidence of a low H/H and bleeding. This is rather a type 2 AR related to supply demand mismatch in the setting of otherwise stable but significant coronary artery disease. We will treat this medically. She is not a reasonable and safe candidate for acute intervention due to her breathing issues, inability to lie flat and very low platelets with bleeding. There is no acute injury current on her ECG and she is pain free. We will continue medical therapy with NTG paste 1/ 2 inch Q6 hrs or as tolerated by blood pressure. Maintain an H/H of approximately 04/06. Ensure adequate oxygenation. Monitor on telemetry in the CCU. Continue Lipitor 20mg daily. * This patient's blood pressue was borderline but is now improved. Her prior hypotension may have been related to sepsis, volume loss in the setting of bleeding or adrenal insufficiency due to being on prolonged steroid therapy. I do not think she is currently septic. Her congested cough is likely due to a bronchitis although a pneumonia cannot be unequivocally ruled out. Consider aspiration. Continue antibiotic therapy as recommended by infectious disease and continue steroids. Continue telemetry? Yes
[2017-10-16 22:40] VITALS: BP 120/76
[2017-10-17 06:47] VITALS: BP 140/70
--- NOTE | 2017-10-17 07:11 | PN- Housestaff ---
Manisha PROCTOR,[facility] 10/17/17 0711: Subjective Follow-up For: PNA Subjective: Ms Aguirre was seen and examined this morning. She is resting comfrotably in bed and endorses no issues ovenight. She was able to get some rest and is tolerating PO intake well. She denies any fever, chills, nausea or vomiting. She continues to be on supplemental oxygen. Review of Systems Constitutional: Reports: see HPI. Objective Last 24 Hrs of Vital Signs/I&O Vital Signs Date Time Temp Pulse Resp B/P B/P Pulse O2 O2 Flow FiO2 Mean Ox Delivery Rate 10/17 1514 Nasal 3.0L Cannula 10/17 1452 97.7 69 20 126/60 96 Nasal 3.0L Cannula 10/17 0847 97 Nasal 2.0L Cannula 10/17 0800 95 Nasal 2.0L Cannula 10/17 0647 98.6 70 20 140/70 99 Nasal 2.0L Cannula 10/17 0000 94 Nasal 2.0L Cannula 10/16 2240 98.5 82 18 120/76 91 Intake & Output 10/17 1600 10/17 0800 05 0000 Intake Total 480 115 370 Output Total Balance 480 115 370 Intake, IV 15 250 Intake, Oral 480 100 120 Number 1 Bowel Movements Patient 42.638 kg Weight Physical Exam General Appearance: Alert, Oriented X3, Cooperative Cardiovascular: Normal S1, Normal S2 Lungs: Clear to Auscultation, Normal Air Movement Abdomen: Normal Bowel Sounds, Soft, No Tenderness Neurological: Normal Speech Extremities: No Clubbing, No Edema, Extensive Eccdymoses Noted bilaterally Vascular: Normal Pulses Current Medications: Current Medications Sig/Zeb Start time Last Medication Dose Route Stop Time Status Admin Acetaminophen 325 MG .STK-MED ONE 10/16 2113 DC PO 10/16 2114 Acetaminophen 325 MG Q6 PRN 10/15 0100 AC 10/16 PO 211 Albuterol Sulfate 3 ML EVERY 4 HRS/AWAKE 10/15 0930 AC 10/17 INH 1627 Atorvastatin Calcium 20 MG 1700 10/16 1700 AC 10/16 PO 1726 Ceftazidime 1,000 MG Q24H 10/15 2100 AC 10/16 IV 2116 Hydrocortisone 25 MG Q8 10/17 0600 AC 10/17 Sodium Succinate IV 1341 Hydrocortisone 50 MG Q8 10/16 0600 DC 10/16 Sodium Succinate IV 10/17 0500 2115 Hydroxychloroquine 200 MG DAILY 10/15 0900 AC 10/17 Sulfate PO 0829 Lidocaine 1 PAT DAILY@1300 10/15 1300 AC 10/17 EXT 1236 Nitroglycerin 0.5 GM Q6 10/16 1200 AC 10/17 TOP 1236 Omeprazole 20 MG DAILY AC 10/15 0700 AC 10/17 PO 0604 Patient Medication 1 ED ONE ONE 10/17 1645 DC Teaching ED 10/17 1646 Tramadol HCl 50 MG Q6-PRN PRN 10/15 0300 AC 10/15 PO 0309 Vancomycin HCl 750 MG 2100 10/15 2100 AC 10/16 Sodium Chloride 250 ML IV 2114 Last 24 Hrs of Lab/Red Results Last 24 Hrs of Labs/Mics: Laboratory Tests 10/17/17 06: Anion Gap 10, Estimated GFR > 60, BUN/Creatinine Ratio 18.0, Calcium 8.1 L, Phosphorus 2.5, Magnesium 1.9, Alkaline Phosphatase 141 H, CBC w Diff MAN DIFF ORDERED, RBC 2.99 L, MCV 84.7, MCH 27.0, MCHC 31.8 L, RDW 23.5 H, MPV 8.7, Segmented Neutrophils 44, Band Neutrophils 3, Lymphocytes 46, Monocytes 5, Metamyelocytes 1, Myelocytes 1 H, Nucleated RBCs 8 H, Platelet Estimate VERIFIED BY SMEAR, Poikilocytosis FEW, Anisocytosis 2+, Macrocytic Cells FEW, Ovalocytes FEW Assessment/Plan Assessment: 86 year old female with past medical history significant for COPD on 2 L oxygen at night, lupus, MDS, hypertension and dyslipidemia was admitted overnight with chief complaint of lethargy, confusion, fever and chills found to have pneumonia , type II MD, and anemia with + stool guaiac Respiratory #COPD CT found severe emphsema with possible superimposed mild edema -cont trc nebs Infection: #Sepsis due to HCAP Presenting T-max 103, pulse 125, RR 26, blood pressure 106/51, saturating 95% on 2.[address] found patchy opacities at the lung bases, particularly at the left base representing atelectasis or pneumonia. CT abd was negative for any sources of sepsis. Continues to have no leukocytosis but patient has MDS. Flu and urinary strep pneumo/leigonaella negative. Nares + MRSA -f/u cultures -cont vanc and ceftaz -vanc trough to be drawn 10/17 #Positive ucx Ucx growing 40k of enterococcus. Pt asymptomatic. -con to monitor for sings of infection Cardiac: #Type II MD Troponins peaked at .17. She was seen by cardiology. Prior echocardiogram showed a decreased EF with a regional wall motion abnormality. -cont NTG paste -cont lipitor -cont cardiology recs -monitor H/H in the AM, may consider additional transfusion. #Hypotension Hypotension possibly related to sepsis vs adreanal insuffiency vs anemia. TSH was was 4,98 (high), total t3 0.59 (low), and free t4 1.5 (normal). -cont abx -cont hydrocortisione taper for lupus Heme onc #MDS and anemia Initially presented with Hgb of 7.0. Patient has received 2 units of prbc thus far and hgb jose david to 9.2. Current Hgb 8.1 Stool guaiac positive -cont monitoring H/H -f/u GI consult -cont heme onc recs who recommends HCT>25% -f/u stool guaiac Metabolic #Electrolyte abnomaltieis K 4.2 Mg 1.9, Ca 8.1 -consider restarting home vit D Alimentary #Hx of gerd -cont omeprazole #Mild ALP elevation Initial and repeat ALP elevated. other LFT WNL. -cont to monitor -conisder GGT Neuro #Hx of Lupus -cont hydroxychloroquine -cont IV steroid taper House: DVT prophylaxis: mechanical for GI bleed Diet: Heart healthy diet Code: FC, will consider Family meeting for goals in AM Problem List: 1. GI bleed 2. Anemia 3. MDS (myelodysplastic syndrome) 4. Hypotension 5. HCAP (healthcare-associated pneumonia) Pain Ratin Pain Location: NA Pain Goal: Remain pain free Pain Plan: Tylenol Tomorrow's Labs & Rationales: CBC: monito CBC in the setting of low H/H BEP: Monitor electrolytes in the setting of acutely ill patient Felice Lopez 10/17/17 1055: Attending MD Review Statement Attending Statement Attending MD Statement: examined this patient, discuss w/resident/PA/HAT COPYIST, agreed w/resident/PA/HAT COPYIST, discussed with family, reviewed EMR data (avail), discussed with nursing, discussed with case mgmt, reviewed images, amended to note Attending Assessment/Plan: Patient with leukopenia today. She is afebrile. Patient transferred to telemetry for elevated cardiac enzymes likley type 2 MD. She is being treated for pneumonia on broad spectrum antibitoics. ID on board and titrate antibitoics as per ID. Anemia stable MDS.
[2017-10-17 07:41] LABS: HEMATOCRIT 25.3 % (37-47)
[2017-10-17 08:00] LABS: MEAN CORPUSCULAR HGB CONC 31.8 G/DL (33.0-37.0); MEAN CORPUSCULAR VOLUME 84.7 FL (81.0-99.0); MEAN PLATELET VOLUME 8.7 FL (7.4-10.4); PLATELET COUNT 130 /CUMM (130-400); RBC DISTRIBUTION WIDTH 23.5 % (11.5-14.5); RED BLOOD CELL CT 2.99 /CUMM (4.20-5.40)
[2017-10-17 08:38] LABS: WHITE BLOOD CELL COUNT 1.8 /CUMM (4.8-10.8)
--- NOTE | 2017-10-17 13:23 | PN- Infect Dx ---
Subjective Subjective: Afebrile on steroids. She feels well with no complaints. Objective Last 24 Hrs of Vital Signs/I&O Vital Signs Date Time Temp Pulse Resp B/P B/P Pulse O2 O2 Flow FiO2 Mean Ox Delivery Rate 10/17 0847 97 Nasal 2.0L Cannula 10/17 0647 98.6 70 20 140/70 99 Nasal 2.0L Cannula 10/17 0000 94 Nasal 2.0L Cannula 10/16 2240 98.5 82 18 120/76 91 10/16 1617 97 Nasal 3.0L Cannula 10/16 1600 Nasal 2.0L Cannula 10/16 1431 98.0 83 18 100/56 95 Nasal 4.0L Cannula Intake & Output 10/17 1600 10/17 0800 10/17 0000 Intake Total 115 370 Output Total Balance 115 370 Intake, IV 15 250 Intake, Oral 100 120 Number 1 Bowel Movements Patient 94 lb Weight Physical Exam Other Physical Findings: She appears comfortable in no acute distress Lungs crackles at the right base; decreased breath sounds at the left base Heart regular rhythm with a 2/6 systolic ejection murmur Extremities diffuse ecchymoses both lower and upper extremities, with no cyanosis, clubbing or edema Results Last 24 Hours of Lab Results: Laboratory Tests 10/17 621 Chemistry Sodium (137 - 145 mmol/L) 140 Potassium (3.5 - 5.1 mmol/L) 4.2 Chloride (98 - 107 mmol/L) 106 Carbon Dioxide (22 - 30 mmol/L) 24 Anion Gap (5 - 16) 10 BUN (7 - 17 mg/dL) 9 Creatinine (0.5 - 1.0 mg/dL) 0.5 Estimated GFR (>60 ml/min) > 60 BUN/Creatinine Ratio (7 - 25 %) 18.0 Calcium (8.4 - 10.2 mg/dL) 8.1 L Phosphorus (2.5 - 4.5 mg/dL) 2.5 Magnesium (1.6 - 2.3 mg/dL) 1.9 Alkaline Phosphatase (<127 U/L) 141 H Hematology CBC w Diff MAN DIFF ORDERED WBC (4.8 - 10.8 /CUMM) 1.8 L RBC (4.20 - 5.40 /CUMM) 2.99 L Hgb (12.0 - 16.0 G/DL) 8.1 L Hct (37 - 47 %) 25.3 L MCV (81.0 - 99.0 FL) 84.7 MCH (27.0 - 31.0 PG) 27.0 MCHC (33.0 - 37.0 G/DL) 31.8 L RDW (11.5 - 14.5 %) 23.5 H Plt Count (130 - 400 /CUMM) 130 MPV (7.4 - 10.4 FL) 8.7 Segmented Neutrophils (42.2 - 75.2 %) 44 Band Neutrophils (0.0 - 5.0 %) 3 Lymphocytes (20.5 - 51.1 %) 46 Monocytes (1.7 - 9.3 %) 5 Metamyelocytes (0.0 - 1.0 %) 1 Myelocytes (0 - 0 %) 1 H Nucleated RBCs (0.0 - 0.0 /100WBC) 8 H Platelet Estimate (ADEQUATE) VERIFIED BY SMEAR Poikilocytosis FEW Anisocytosis 2+ Macrocytic Cells FEW Ovalocytes FEW Last 24 Hours of Red Results: Blood cultures October 14 negative Urine culture October 14 approximately 40,000 colonies of Enterococcus casselifrlavus , sensitive to Ampicillin but (intrinsically) resistant to Vancomycin Nares culture October 15 positive for MRSA Assessment/Plan ID Impression: Clinically stable, with temperatures remaining normal (on steroids) but with her white blood cell count decreasing, now neutropenic, possibly related to her infection superimposed on her underlying myelodysplastic syndrome. She remains on Vancomycin and Ceftazidime Day 3 for possible pneumonia, with the recent CT of the chest revealing patchy opacities at the lung bases, though her respiratory status is stable and she had no new respiratory symptoms. The isolation of MRSA from her nares increases her risk for MRSA pneumonia; therefore may need to continue her on Vancomycin, particularly given her neutropenia. The Enterococcus isolated from her urine culture is intrinsically resistant to Vancomycin but likely represents contamination and, therefore, should not require treatment. Suggestion: 1. Neutropenic precautions 2. Contact precautions 3. Vancomycin trough level before tonight's dose 4. Continue Vancomycin and Ceftazidime
[2017-10-17 14:52] VITALS: BP 126/60
--- NOTE | 2017-10-17 19:32 | PN- Cardiology ---
Subjective Subjective: * No complaints. No shortness of breath but she remains weak. * Neutropenic and growing MRSA and Enterococcus * sinus rhythm Objective Vital Signs and I&Os Vital Signs Date Time Temp Pulse Resp B/P B/P Pulse O2 O2 Flow FiO2 Mean Ox Delivery Rate 10/17 1628 99 Nasal 2.0L Cannula 10/17 1514 Nasal 3.0L Cannula 10/17 1452 97.7 69 20 126/60 96 Nasal 3.0L Cannula 10/17 0847 97 Nasal 2.0L Cannula 10/17 0800 95 Nasal 2.0L Cannula 10/17 0647 98.6 70 20 140/70 99 Nasal 2.0L Cannula 10/17 0000 94 Nasal 2.0L Cannula 10/16 2240 98.5 82 18 120/76 91 Intake & Output 10/17 1600 10/17 0800 10/17 0000 10/16 1600 10/16 0810/16 0000 Intake Total 480 115 370 200 490 425 Output Total 1 Balance 480 115 370 200 490 424 Intake, IV 15 250 290 225 Intake, Oral 480 100 120 200 200 200 Number 1 1 1 1 Bowel Movements Output, Stool 1 Patient 94 lb 96 lb 15.98 oz 97 lb Weight Physical Exam: General: WD/WN female in NAD; alert and oriented x 3 HEENT: NC/AT, PERRL, EOMI Neck: no JVD, no carotid bruit Heart: RRR w/o murmur Lungs: No crackles or wheezing Abdomen: soft, NT, +ve bowel sounds Extremities; no edema with venous stasis changes, legs are ecchymotic Assessment/Plan Assessment/Plan * This patient had a mildly elevated troponin that trended downward. It jose david in the setting of sinus tachycardia at about 120bpm with severe anemia and respiratory distress with low oxygen saturation. I have no doubt that this patient has myocardial ischemia and, in fact, her prior echocardiogram showed a decreased EF with a regional wall motion abnormality. I do not think that this is an acute event or that it is a manifestation of an acute ruptured intracoronary plaque with thrombus. As such, I do not feel compelled to begin anticoagulation which would be problematic in this patient with evidence of a low H/H and bleeding. This is rather a type 2 LA related to supply demand mismatch in the setting of otherwise stable but significant coronary artery disease. We will treat this medically. She is not a reasonable and safe candidate for acute intervention due to her breathing issues, inability to lie flat and very low platelets with bleeding. There is no acute injury current on her ECG and she is pain free. We will continue medical therapy with NTG paste 1/ 2 inch Q6 hrs or as tolerated by blood pressure. Maintain an H/H of approximately 04/06. Ensure adequate oxygenation. Monitor on telemetry in the CCU. Continue Lipitor 20mg daily. * This patient's blood pressue was borderline but is now improved. Her prior hypotension may have been related to sepsis, volume loss in the setting of bleeding or adrenal insufficiency due to being on prolonged steroid therapy. I do not think she is currently septic although she is infected and neutropenic. Continue antibiotic therapy as recommended by Dr. Olvera. Continue telemetry? No
[2017-10-17 22:34] VITALS: BP 118/60
[2017-10-18 06:55] VITALS: BP 144/66
[2017-10-18 08:02] LABS: ABSOLUTE BASOPHIL COUNT 0 /CUMM (0.0-0.2); ABSOLUTE EOSINOPHIL COUNT 0 /CUMM (0.0-0.7); ABSOLUTE GRANULOCYTE CT 0.8 /CUMM (1.4-6.5); ABSOLUTE MONOCYTE COUNT 0 /CUMM (0.10-0.60); BASOPHIL % 0.3 % (0.0-2.0); EOSINOPHIL % 0.1 % (0-5); HEMATOCRIT 24.8 % (37-47); MEAN CORPUSCULAR HGB 27.1 PG (27.0-31.0); MEAN CORPUSCULAR HGB CONC 32.2 G/DL (33.0-37.0); MEAN CORPUSCULAR VOLUME 84.2 FL (81.0-99.0); MEAN PLATELET VOLUME 8.4 FL (7.4-10.4); PLATELET COUNT 117 /CUMM (130-400); RED BLOOD CELL CT 2.95 /CUMM (4.20-5.40); WHITE BLOOD CELL COUNT 1.8 /CUMM (4.8-10.8)
--- NOTE | 2017-10-18 08:21 | PN- Housestaff ---
Manisha PROCTOR,[facility] 10/18/17 0820: Subjective Follow-up For: PNA Subjective: Ms Aguirre was seen and examined this morning. She is resting comfortably in bed, states that she feels better. She was not too enthusiastic about her new room (states that she feels very isolated). Jennie Khan presented at bedside and was updated on the plan of care. Review of Systems Constitutional: Reports: see HPI. Objective Last 24 Hrs of Vital Signs/I&O Vital Signs Date Time Temp Pulse Resp B/P B/P Pulse O2 O2 Flow FiO2 Mean Ox Delivery Rate 10/18 0751 96 Nasal 1.0L Cannula 10/18 0655 98.2 72 18 144/66 96 Nasal Cannula 10/18 0000 Nasal 2.0L Cannula 10/17 2234 97.9 68 18 118/60 97 10/17 1628 99 Nasal 2.0L Cannula 10/17 1600 Nasal 3.0L Cannula 10/17 1514 Nasal 3.0L Cannula 10/17 1452 97.7 69 20 126/60 96 Nasal 3.0L Cannula Intake & Output 10/18 1600 10/18 0800 10/18 0000 Intake Total 120 200 Output Total Balance 120 200 Intake, Oral 120 200 Patient 42.184 kg Weight Weight Bed scale Measurement Method Physical Exam General Appearance: Alert, Oriented X3 HEENT: Mucous Membr. moist/pink Cardiovascular: Regular Rate, Normal S1, Normal S2 Lungs: Normal Air Movement, Mild Crackles Noted Abdomen: Normal Bowel Sounds, Soft, No Tenderness Neurological: Normal Gait, Normal Speech Extremities: No Clubbing, No Cyanosis, No Edema Vascular: Normal Pulses Current Medications: Current Medications Sig/Zeb Start time Last Medication Dose Route Stop Time Status Admin Acetaminophen 325 MG Q6 PRN 10/15 0100 AC 10/16 PO 2116 Albuterol Sulfate 3 ML EVERY 4 HRS/AWAKE 10/15 0930 AC 10/18 INH 0750 Atorvastatin Calcium 20 MG 1700 10/16 1700 AC 10/17 PO 1711 Ceftazidime 1,000 MG Q24H 10/15 2100 AC 10/17 IV 2137 Hydrocortisone 25 MG Q8 10/17 0600 AC 10/18 Sodium Succinate IV 0545 Hydroxychloroquine 200 MG DAILY 10/15 09 AC 10/18 Sulfate PO 0838 Lidocaine 1 PAT DAILY@1300 10/15 1300 AC 05/10 EXT 1236 Nitroglycerin 0.5 GM Q6 10/16 1200 AC 10/18 TOP 0545 Omeprazole 20 MG DAILY AC 10/15 0700 AC 10/18 PO 0545 Patient Medication 1 ED ONE ONE 10/17 1645 DC Teaching ED 10/17 1646 Potassium Chloride 40 MEQ ONCE ONE 10/18 0900 DC PO 10/18 0901 Tramadol HCl 50 MG Q6-PRN PRN 10/15 0300 AC 10/15 PO 0309 Vancomycin HCl 750 MG 2100 10/15 2099 AC 10/17 Sodium Chloride 250 ML IV 2138 Last 24 Hrs of Lab/Red Results Last 24 Hrs of Labs/Mics: Laboratory Tests 10/18/17 0622: Anion Gap 10, Estimated GFR > 60, BUN/Creatinine Ratio 22.0, Magnesium 1.7, CBC w Diff MAN DIFF ORDERED, RBC 2.95 L, MCV 84.2, MCH 27.1, MCHC 32.2 L, RDW 24.0 H, MPV 8.4, Gran % 43.0, Lymphocytes % 56.1 H, Monocytes % 0.5 L, Eosinophils % 0.1, Basophils % 0.3, Absolute Granulocytes 0.8 L, Segmented Neutrophils 37 L, Band Neutrophils 2, Absolute Lymphocytes 1.0 L, Lymphocytes 55 H, Monocytes 6, Absolute Monocytes 0 L, Absolute Eosinophils 0, Absolute Basophils 0, Nucleated RBCs 4 H, Platelet Estimate VERIFIED BY SMEAR, Hypochromic-Microcytic 1+, Anisocytosis 1+, Macrocytic Cells FEW, Ovalocytes FEW 10/17/172007: Vancomycin Trough 8.1 L Assessment/Plan Assessment: 86 year old female with past medical history significant for COPD on 2 L oxygen at night, lupus, MDS, hypertension and dyslipidemia was admitted overnight with chief complaint of lethargy, confusion, fever and chills found to have pneumonia , type II DE, and anemia with + stool guaiac Respiratory #COPD CT found severe emphsema with possible superimposed mild edema -cont trc nebs Infection: #Sepsis due to HCAP Presenting T-max 103, pulse 125, RR 26, blood pressure 106/51, saturating 95% on 2.[address] found patchy opacities at the lung bases, particularly at the left base representing atelectasis or pneumonia. CT abd was negative for any sources of sepsis. Continues to have no leukocytosis but patient has MDS. Flu and urinary strep pneumo/leigonaella negative. Nares + MRSA -f/u cultures -cont vanc and ceftaz-->Levofloxacin 500 mg 10/18 and then 250 mg from 10/19 -vanc trough to be drawn 10/17: 8.1 #Positive ucx Ucx growing 40k of enterococcus. Pt asymptomatic. -con to monitor for sings of infection Cardiac: #Type II DE Troponins peaked at .17. She was seen by cardiology. Prior echocardiogram showed a decreased EF with a regional wall motion abnormality. -cont NTG paste -cont lipitor -cont cardiology recs -monitor H/H in the AM, may consider additional transfusion, if H/H falls further. #Hypotension Hypotension possibly related to sepsis vs adreanal insuffiency vs anemia. TSH was was 4,98 (high), total t3 0.59 (low), and free t4 1.5 (normal). -cont abx -cont hydrocortisione taper for lupus Heme onc #MDS and anemia Initially presented with Hgb of 7.0. Patient has received 2 units of prbc thus far and hgb jose david to 9.2. Current Hgb 8.0 Stool guaiac positive -cont monitoring H/H -cont heme onc recs who recommends HCT>25% -f/u stool guaiac Metabolic #Electrolyte abnomaltieis K 3.2 Mg 1.7, Ca 8.1 Alimentary #Hx of gerd -cont omeprazole #Mild ALP elevation Initial and repeat ALP elevated. other LFT WNL. -cont to monitor -conisder GGT Neuro #Hx of Lupus -cont hydroxychloroquine -cont IV steroid taper House: DVT prophylaxis: mechanical for GI bleed Diet: Heart healthy diet Code: FC, daughter will speak to patient about goals of care and revert to housestaff. Problem List: 1. Anemia 2. MDS (myelodysplastic syndrome) 3. HCAP (healthcare-associated pneumonia) Pain Ratin Pain Location: No Pain Pain Goal: Remain pain free Pain Plan: Tylmontserrat PRN Tomorrow's Labs & Rationales: BEP: Monitor K in the setting of hypokalemia CBC: Monitor H.H in the setting of MDS Felice Lopez 10/18/17 1118: Attending MD Review Statement Attending Statement Attending MD Statement: examined this patient, discuss w/resident/PA/GILL BOX OPERATOR, agreed w/resident/PA/GILL BOX OPERATOR, discussed with family, reviewed EMR data (avail), discussed with nursing, discussed with case mgmt, reviewed images, amended to note Attending Assessment/Plan: Patient with neutropenia. She is afebrile. Patient is on 1-2 l of oxygen supplementation without overt use of accessory muscles. Patient transferred to telemetry for elevated cardiac enzymes likley type 2 DE. She is being treated for pneumonia on broad spectrum antibitoics. ID on board and titrate antibitoics as per ID. Anemia stable MDS. Hematology in past recommended to keep Hct >25 for blood transfusion. Discontinue telemetry if ok with cardiolgoy and transfer to [facility].
--- NOTE | 2017-10-18 11:19 | PN- Infect Dx ---
See Addendum Subjective Subjective: Afebrile on steroids without complaints. She does continue to have a cough, which is nonproductive, but denies any shortness of breath or chest pain. Objective Last 24 Hrs of Vital Signs/I&O Vital Signs Date Time Temp Pulse Resp B/P B/P Pulse O2 O2 Flow FiO2 Mean Ox Delivery Rate 10/18 0751 96 Nasal 1.0L Cannula 10/18 0655 98.2 72 18 144/66 96 Nasal Cannula 10/18 0000 Nasal 2.0L Cannula 10/17 2234 97.9 68 18 118/60 97 10/17 1628 99 Nasal 2.0L Cannula 10/17 1600 Nasal 3.0L Cannula 10/17 1514 Nasal 3.0L Cannula 10/17 1452 97.7 69 20 126/60 96 Nasal 3.0L Cannula Intake & Output 10/18 1600 10/18 0800 10/18 0000 Intake Total 120 200 Output Total Balance 120 200 Intake, Oral 120 200 Patient 93 lb Weight Weight Bed scale Measurement Method Physical Exam Other Physical Findings: She appears comfortable in no acute distress Lungs bibasilar crackles Heart regular rhythm with a 1/6 systolic ejection murmur Extremities no cyanosis, clubbing or edema Results Last 24 Hours of Lab Results: Laboratory Tests 10/18 Chemistry Sodium (137 - 145 mmol/L) 138 Potassium (3.5 - 5.1 mmol/L) 3.2 L Chloride (98 - 107 mmol/L) 102 Carbon Dioxide (22 - 30 mmol/L) 26 Anion Gap (5 - 16) 10 BUN (7 - 17 mg/dL) 11 Creatinine (0.5 - 1.0 mg/dL) 0.5 Estimated GFR (>60 ml/min) > 60 BUN/Creatinine Ratio (7 - 25 %) 22.0 Magnesium (1.6 - 2.3 mg/dL) 1.7 Hematology CBC w Diff MAN DIFF ORDERED WBC (4.8 - 10.8 /CUMM) 1.8 L RBC (4.20 - 5.40 /CUMM) 2.95 L Hgb (12.0 - 16.0 G/DL) 8.0 L Hct (37 - 47 %) 24.8 L MCV (81.0 - 99.0 FL) 84.2 MCH (27.0 - 31.0 PG) 27.1 MCHC (33.0 - 37.0 G/DL) 32.2 L RDW (11.5 - 14.5 %) 24.0 H Plt Count (130 - 400 /CUMM) 117 L MPV (7.4 - 10.4 FL) 8.4 Gran % (42.2 - 75.2 %) 43.0 Lymphocytes % (20.5 - 51.1 %) 56.1 H Monocytes % (1.7 - 9.3 %) 0.5 L Eosinophils % (0 - 5 %) 0.1 Basophils % (0.0 - 2.0 %) 0.3 Absolute Granulocytes (1.4 - 6.5 /CUMM) 0.8 L Segmented Neutrophils (42.2 - 75.2 %) 37 L Band Neutrophils (0.0 - 5.0 %) 2 Absolute Lymphocytes (1.2 - 3.4 /CUMM) 1.0 L Lymphocytes (20.5 - 51.1 %) 55 H Monocytes (1.7 - 9.3 %) 6 Absolute Monocytes (0.10 - 0.60 /CUMM) 0 L Absolute Eosinophils (0.0 - 0.7 /CUMM) 0 Absolute Basophils (0.0 - 0.2 /CUMM) 0 Nucleated RBCs (0.0 - 0.0 /100WBC) 4 H Platelet Estimate (ADEQUATE) VERIFIED BY SMEAR Hypochromic-Microcytic 1+ Anisocytosis 1+ Macrocytic Cells FEW Ovalocytes FEW Toxicology Vancomycin Trough (10.0 - 20.0 ug/mL) 8.1 L Last 24 Hours of Red Results: No recent cultures Assessment/Plan ID Impression: Clinically stable, with temperatures remaining normal (on steroids) and with her respiratory status stable, now on just 1 L of oxygen, but now neutropenic ( despite steroids) with her platelet count also decreasing, possibly secondary to medications (for example Vancomycin) or infection superimposed on her underlying myelodysplastic syndrome. She remains on Vancomycin and Ceftazidime Day 4 for possible pneumonia, with the recent CT of the chest revealing patchy opacities at the lung bases, though she has had no new respiratory symptoms and her respiratory status has remained stable. MRSA was isolated from her nares but, as I am not convinced she has pneumonia and am concerned about the neutropenia, feel that the Vancomycin should be discontinued. The Enterococcus isolated from her urine culture is intrinsically resistant to Vancomycin but likely represents contamination, with no urinary symptoms and a negative urinalysis, and, therefore, it should not require treatment. Suggestion: 1. Discontinue Vancomycin 2. Begin Levaquin 500 mg p.o. today, followed by 250 mg p.o. every [address] Edwards will be covering over the weekend
--- NOTE | 2017-10-18 11:29 | Patient Discharge Instructions ---
Discharge Instructions General Discharge Information You were seen/treated for: Pneumonia Special Instructions: Please follow up with your primary care physician within 7 days. Please follow-up with captain waiter/oncologist within 7 days. While you were in the hospital your Darbepoetin Delmar was not given, please follow up as an outpatient to get this. Please follow-up with a cashier and waiter/waitress within 7 days, we have provided you with a referral. Diet Continue normal diet: Yes Activity Full Activity/No Limits: No Activity Self Limited: Yes (As Tolerated ) Acute Coronary Syndrome Inclusion Criteria At DC or during hospital stay patient has or had the following: ACS DIAGNOSIS No Discharge Core Measures Meds if any: Prescribed or Continued at Discharge Meds if any: NOT Prescribed or Continued at Discharge Congestive Heart Failure Inclusion Criteria At DC or during hospital stay patient has or had the following: CHF DIAGNOSIS No Discharge Core Measures Meds if any: Prescribed or Continued at Discharge Meds if any: NOT Prescribed or Continued at Discharge Cerebrovascular accident Inclusion Criteria At DC or during hospital stay patient has or had the following: CVA/TIA Diagnosis No Discharge Core Measures Meds if any: Prescribed or Continued at Discharge Meds if any: NOT Prescribed or Continued at Discharge Venous thromboembolism Inclusion Criteria VTE Diagnosis No VTE Type NONE VTE Confirmed by (Test) NONE Discharge Core Measures - Per Current guidelines, there needs to be overlap - treatment for the first 5 days of Warfarin therapy. - If discharged on Warfarin prior to 5 days of - overlap therapy, the patient will need to be - assessed for post discharge needs including - *Post discharge parental anticoagulation - *Warfarin and/or parental anticoagulation education - *Follow up date to check INR post discharge At least 5 days overlap therapy as Inpatient No Meds if any: Prescribed or Continued at Discharge Note: Overlap Therapy is Warfarin and Anticoagulant Meds if any: NOT Prescribed or Continued at Discharge
[2017-10-18 14:08] VITALS: BP 140/74
--- NOTE | 2017-10-18 17:29 | PN- Cardiology ---
Subjective Subjective: * No chest discomfort or shortness of breath. She continues to have a congested cough. * Sinus rhythm with ectopy. * Patient continues to feel weak. * potassium 3.2 * Moderate anemia with neutropenia Objective Vital Signs and I&Os Vital Signs Date Time Temp Pulse Resp B/P B/P Pulse O2 O2 Flow FiO2 Mean Ox Delivery Rate 10/18 1634 96 Nasal 1.0L Cannula 10/18 1408 98.6 68 20 140/74 97 Nasal Cannula 10/18 0800 95 Nasal 2.0L Cannula 10/18 0751 96 Nasal 1.0L Cannula 10/18 0655 98.2 72 18 144/66 96 Nasal Cannula 10/18 0000 Nasal 2.0L Cannula 10/17 2234 97.9 68 18 118/60 97 Intake & Output 10/18 1600 10/18 0800 10/18 0000 10/17 1600 10/17 0810/17 0000 Intake Total 500 120 200 480 115 370 Output Total 500 Balance 0 120 200 480 115 370 Intake, IV 50 15 250 Intake, Oral 450 120 200 480 100 120 Number 1 Bowel Movements Output, Urine 500 Patient 93 lb 94 lb Weight Weight Bed scale Measurement Method Physical Exam: General: WD/WN female in NAD; alert and oriented x 3 HEENT: NC/AT, PERRL, EOMI Neck: no JVD, no carotid bruit Heart: RRR w/o murmur Lungs: No crackles or wheezing Abdomen: soft, NT, +ve bowel sounds Extremities; no edema with venous stasis changes, legs are ecchymotic Assessment/Plan Assessment/Plan * This patient had a mildly elevated troponin that trended downward. It jose david in the setting of sinus tachycardia at about 120bpm with severe anemia and respiratory distress with low oxygen saturation. I have no doubt that this patient has myocardial ischemia and, in fact, her prior echocardiogram showed a decreased EF with a regional wall motion abnormality. I do not think that this is an acute event or that it is a manifestation of an acute ruptured intracoronary plaque with thrombus. As such, I do not feel compelled to begin anticoagulation which would be problematic in this patient with evidence of a low H/H and bleeding. This is rather a type 2 LA related to supply demand mismatch in the setting of otherwise stable but significant coronary artery disease. We will treat this medically. She is not a reasonable and safe candidate for acute intervention due to her breathing issues, inability to lie flat and very low platelets with bleeding. There is no acute injury current on her ECG and she is pain free. We will continue medical therapy with NTG paste 1/ 2 inch Q6 hrs or as tolerated by blood pressure. Maintain an H/H of approximately 04/06. Ensure adequate oxygenation. Monitor on telemetry in the CCU. Continue Lipitor 20mg daily. * This patient's blood pressue was borderline but is now improved. Her prior hypotension may have been related to sepsis, volume loss in the setting of bleeding or adrenal insufficiency due to being on prolonged steroid therapy. I do not think she is currently septic although she is infected and neutropenic. She does have a congested cough. Continue antibiotic therapy as recommended by Dr. Olvera. * Replete potassium. Continue telemetry? Yes
--- NOTE | 2017-10-18 17:44 | Event Note ---
Event Note Event Note: S: Goals of care discussion B: 86 year old female with past medical history significant for COPD on 2 L oxygen at night, lupus, MDS, hypertension and dyslipidemia was admitted overnight with chief complaint of lethargy, confusion, fever and chills found to have pneumonia , type II NE, and anemia with + stool guaiac Spoke with Ms Aguirre in the company of her Daughter (Rosalinda) and Son (Ed). Patient would like to change from a FC to a DNR. She would be willing to be intubated if need be. A/R: Changed Code Status. Informed the night team.
[2017-10-18 21:34] VITALS: BP 142/60
[2017-10-19 06:42] VITALS: BP 158/66
[2017-10-19 08:23] LABS: ABSOLUTE BASOPHIL COUNT 0 /CUMM (0.0-0.2); ABSOLUTE EOSINOPHIL COUNT 0 /CUMM (0.0-0.7); ABSOLUTE GRANULOCYTE CT 0.9 /CUMM (1.4-6.5); ABSOLUTE LYMPH COUNT 1.8 /CUMM (1.2-3.4); ABSOLUTE MONOCYTE COUNT 0 /CUMM (0.10-0.60); BASOPHIL % 0.4 % (0.0-2.0); EOSINOPHIL % 0.1 % (0-5); GRANULOCYTE % 34.3 % (42.2-75.2); MEAN CORPUSCULAR HGB 27.6 PG (27.0-31.0); MEAN PLATELET VOLUME 8.4 FL (7.4-10.4); PLATELET COUNT 110 /CUMM (130-400); RBC DISTRIBUTION WIDTH 20.5 % (11.5-14.5)
[2017-10-19 09:02] LABS: RED BLOOD CELL CT 3.95 /CUMM (4.20-5.40); WHITE BLOOD CELL COUNT 2.8 /CUMM (4.8-10.8)
--- NOTE | 2017-10-19 10:26 | PN- Housestaff ---
Subjective Follow-up For: PNA Subjective: Patient was seen and examined this morning. She was resting comfortably in her bed on oxygen. No complaints. She denies shortness of breath, chest pain, nausea, fever. Review of Systems Constitutional: Reports: see HPI. Objective Last 24 Hrs of Vital Signs/I&O Vital Signs Date Time Temp Pulse Resp B/P B/P Pulse O2 O2 Flow FiO2 Mean Ox Delivery Rate 10/19 1131 94 Nasal 2.0L Cannula 10/19 0800 97 Nasal 2.0L Cannula 10/19 0735 95 Nasal 1.0L Cannula 10/19 0642 97.7 59 20 158/66 97 10/19 0000 Nasal 2.0L Cannula 10/18 2134 97.4 67 19 142/60 93 Nasal 2.0L Cannula 10/18 1634 96 Nasal 1.0L Cannula 10/18 1600 Nasal 2.0L Cannula 10/18 1408 98.6 68 20 140/74 97 Nasal Cannula Intake & Output 10/19 1600 10/19 0800 10/19 0000 Intake Total 300 Output Total 200 Balance -200 300 Intake, IV 300 Output, Urine 200 Physical Exam General Appearance: Alert, Oriented X3, Cooperative, No Acute Distress Cardiovascular: Regular Rate, Normal S1, Normal S2, No Murmurs Lungs: Clear to Auscultation Abdomen: Soft, No Tenderness, No Hepatospenomegaly Neurological: Normal Speech, Strength at 5/5 X4 Ext, Normal Tone, Sensation Intact Extremities: No Cyanosis, No Edema, Normal Pulses, right knee dressing intact. Current Medications: Current Medications Sig/Zeb Start time Last Medication Dose Route Stop Time Status Admin Acetaminophen 325 MG Q6 PRN 10/15 0100 AC 10/16 PO 2116 Albuterol Sulfate 3 ML EVERY 4 HRS/AWAKE 10/15 0830 AC 10/19 INH 1130 Atorvastatin Calcium 20 MG 1700 10/16 1700 AC 10/18 PO 1721 Ceftazidime 1,000 MG Q24H 10/15 2100 DC 10/17 IV 2137 Hydrocortisone 25 MG Q8 10/17 0600 DC 10/18 Sodium Succinate IV 1306 Hydroxychloroquine 200 MG DAILY 10/15 0900 AC 10/19 Sulfate PO 0906 Levofloxacin 250 MG Q24H 10/19 1200 AC PO Lidocaine 1 PAT DAILY@1300 10/15 1300 AC 10/17 EXT 1236 Magnesium Oxide 400 MG ONE ONE 10/18 1600 DC 10/18 PO 10/18 1601 1721 Nitroglycerin 0.5 GM Q6 10/16 1200 AC 10/19 TOP 0556 Omeprazole 20 MG DAILY AC 10/15 0700 10/19 PO 0556 Patient Medication 1 ED ONE ONE 10/18 1345 DC Teaching ED 10/18 1346 Potassium Chloride 60 MEQ ONCE ONE 10/19 0900 DC 10/19 PO 10/19 900 09 Prednisone 10 MG ONCE ONE 10/21 899 AC PO 10/21 900 Prednisone 30 MG ONCE ONE 10/20 09 AC PO 10/20 900 Prednisone 40 MG DAILY 10/19 09 AC 10/19 PO 09 Tramadol HCl 50 MG Q6-PRN PRN 10/15 0300 AC 10/15 PO 0309 Last 24 Hrs of Lab/Red Results Last 24 Hrs of Labs/Mics: Laboratory Tests 10/19/17 0715: Anion Gap 12, Estimated GFR > 60, BUN/Creatinine Ratio 18.0, CBC w Diff MAN DIFF ORDERED, RBC 3.95 L, MCV 86.0, MCH 27.6, MCHC 32.0 L, RDW 20.5 H, MPV 8.4, Gran % 34.3 L, Lymphocytes % 63.8 H, Monocytes % 1.4 L, Eosinophils % 0.1, Basophils % 0.4, Absolute Granulocytes 0.9 L, Absolute Lymphocytes 1.8, Absolute Monocytes 0 L, Absolute Eosinophils 0, Absolute Basophils 0, Platelet Estimate DECREASED, Polychromasia 1+, Poikilocytosis 1+, Anisocytosis 2+, Target Cells , Ovalocytes Assessment/Plan Assessment: 86 year old female with past medical history significant for COPD on 2 L oxygen at night, lupus, MDS, hypertension and dyslipidemia was admitted overnight with chief complaint of lethargy, confusion, fever and chills found to have pneumonia , type II [place], and anemia with + stool guaiac Assessment and plan Respiratory #COPD CT found severe emphsema with possible superimposed mild edema -cont trc nebs Infection: #Sepsis due to HCAP Presenting T-max 103, pulse 125, RR 26, blood pressure 106/51, saturating 95% on [address] found patchy opacities at the lung bases, particularly at the left base representing atelectasis or pneumonia. CT abd was negative for any sources of sepsis. Continues to have no leukocytosis but patient has MDS. Flu and urinary strep pneumo/leigonaella negative. Nares + MRSA -f/u cultures -cont vanc and ceftaz-->Levofloxacin 500 mg 10/18 and then 250 mg from 10/19 -vanc trough to be drawn 10/17: 8.1 #Positive ucx Ucx growing 40k of enterococcus. Pt asymptomatic. -con to monitor for sings of infection Cardiac: #Type II [place] Troponins peaked at .17. She was seen by cardiology. Prior echocardiogram showed a decreased EF with a regional wall motion abnormality. -cont NTG paste -cont lipitor -cont cardiology recs #Hypotension Hypotension possibly related to sepsis vs adreanal insuffiency vs anemia. TSH was was 4,98 (high), total t3 0.59 (low), and free t4 1.5 (normal). -cont abx -cont hydrocortisione taper for lupus Heme onc #MDS and anemia Initially presented with Hgb of 7.0. Patient has received 2 units of prbc, far and hgb INCREASED to 9.2. Current Hgb 8.0 Stool guaiac positive -cont monitoring H/H -cont heme onc recs who recommends HCT>25% -f/u stool guaiac Metabolic #Electrolyte abnomaltieis K 3.2 Mg 1.7, Ca 8.1 Alimentary #Hx of gerd -cont omeprazole #Mild ALP elevation Initial and repeat ALP elevated. other LFT WNL. -cont to monitor -conisder GGT Neuro #Hx of Lupus -cont hydroxychloroquine -cont IV steroid taper House: DVT prophylaxis: mechanical for GI bleed Diet: Heart healthy diet Problem List: 1. Anemia 2. MDS (myelodysplastic syndrome) 3. Hypotension 4. HCAP (healthcare-associated pneumonia) Pain Ratin Pain Location: none Pain Goal: Remain pain free Pain Plan: tylenol Tomorrow's Labs & Rationales: cbc,bep
--- NOTE | 2017-10-19 13:09 | PN- Infect Dx ---
Subjective Subjective: This is an 86-year-old woman with a significant past medical history for COPD, lupus, myelodysplastic syndrome, hospitalized nearly 3 months prior to admission with sepsis, felt to be secondary to pneumonia, with her hospital course complicated by possible pseudomonas pneumonia, treated with 5 days of Ceftazidime, which was discontinued when she was made comfort measures, discharged to a rehab facility after 1 month, with reversal of the comfort measures decision and discharged home 1 week prior to admission, with a chronic, nonproductive cough for several months, admitted on October 14 after she was brought to the emergency room because of hypoxia, weakness and confusion. On admission she was febrile to 103 and a white blood cell count of 4000. Chest x-ray revealed improvement from the previous study with resolution of the groundglass opacities. CT of the chest, abdomen and pelvis revealed patchy opacities at the lung bases, with no acute abdominal or pelvic process. She was given 3 L of normal saline and begun on Vancomycin and Ceftazidime. She feels well today and has no complaints. Review of Systems Constitutional: Reports: no symptoms. EENTM: Reports: no symptoms. Cardiovascular: Reports: no symptoms. Respiratory: Reports: no symptoms. Gastrointestinal: Reports: no symptoms. Genitourinary: Reports: no symptoms. Musculoskeletal: Reports: no symptoms. Skin: Reports: no symptoms. Neurological/Psychological: Reports: no symptoms. Objective Last 24 Hrs of Vital Signs/I&O Vital Signs Date Time Temp Pulse Resp B/P B/P Pulse O2 O2 Flow FiO2 Mean Ox Delivery Rate 10/19 1131 94 Nasal 2.0L Cannula 10/19 0800 97 Nasal 2.0L Cannula 10/19 0735 95 Nasal 1.0L Cannula 10/19 0642 97.7 59 20 158/66 97 10/19 0000 Nasal 2.0L Cannula 10/18 2134 97.4 67 19 142/60 93 Nasal 2.0L Cannula 10/18 1634 96 Nasal 1.0L Cannula 10/18 1600 Nasal 2.0L Cannula 10/18 1408 98.6 68 20 140/74 97 Nasal Cannula Intake & Output 10/19 1600 10/19 0800 10/19 0000 Intake Total 300 Output Total 200 Balance -200 300 Intake, IV 300 Output, Urine 200 Physical Exam General Appearance: well developed/nourished, no apparent distress, alert Head: atraumatic Neck: normal inspection, supple Cardiovascular: regular rate/rhythm Respiratory: normal breath sounds, no respiratory distress Abdomen: normal bowel sounds, soft, non-tender Extremities: normal inspection Neurologic/Psychiatric: awake, alert Results Last 24 Hours of Lab Results: Laboratory Tests 10/19 0715 Chemistry Sodium (137 - 145 mmol/L) 139 Potassium (3.5 - 5.1 mmol/L) 2.5 *L Chloride (98 - 107 mmol/L) 97 L Carbon Dioxide (22 - 30 mmol/L) 31 H Anion Gap (5 - 16) 12 BUN (7 - 17 mg/dL) 9 Creatinine (0.5 - 1.0 mg/dL) 0.5 Estimated GFR (>60 ml/min) > 60 BUN/Creatinine Ratio (7 - 25 %) 18.0 Hematology CBC w Diff MAN DIFF ORDERED WBC (4.8 - 10.8 /CUMM) 2.8 L RBC (4.20 - 5.40 /CUMM) 3.95 L Hgb (12.0 - 16.0 G/DL) 10.9 L Hct (37 - 47 %) 34.0 L MCV (81.0 - 99.0 FL) 86.0 MCH (27.0 - 31.0 PG) 27.6 MCHC (33.0 - 37.0 G/DL) 32.0 L RDW (11.5 - 14.5 %) 20.5 H Plt Count (130 - 400 /CUMM) 110 L MPV (7.4 - 10.4 FL) 8.4 Gran % (42.2 - 75.2 %) 34.3 L Lymphocytes % (20.5 - 51.1 %) 63.8 H Monocytes % (1.7 - 9.3 %) 1.4 L Eosinophils % (0 - 5 %) 0.1 Basophils % (0.0 - 2.0 %) 0.4 Absolute Granulocytes (1.4 - 6.5 /CUMM) 0.9 L Absolute Lymphocytes (1.2 - 3.4 /CUMM) 1.8 Absolute Monocytes (0.10 - 0.60 /CUMM) 0 L Absolute Eosinophils (0.0 - 0.7 /CUMM) 0 Absolute Basophils (0.0 - 0.2 /CUMM) 0 Platelet Estimate (ADEQUATE) DECREASED Polychromasia 1+ Poikilocytosis 1+ Anisocytosis 2+ Target Cells Ovalocytes Last 24 Hours of Red Results: No new culture results Recent Imaging Studies: Reviewed Assessment/Plan ID Impression: This patient is an 86-year-old white female with an extensive past medical history as noted above she has currently clinically stable, with temperatures remaining normal (on steroids) and normalized white blood cell count. Currently on levofloxacin for a course of therapy. Suggestion: Continue course of levofloxacin to complete a seven-day course. Call with any further questions [phone]
[2017-10-19 13:30] VITALS: BP 142/64
[2017-10-19 21:56] VITALS: BP 124/61
[2017-10-20 06:06] VITALS: BP 156/58
[2017-10-20 10:22] LABS: ABSOLUTE BASOPHIL COUNT 0 /CUMM (0.0-0.2); ABSOLUTE EOSINOPHIL COUNT 0 /CUMM (0.0-0.7); ABSOLUTE GRANULOCYTE CT 0.5 /CUMM (1.4-6.5); ABSOLUTE MONOCYTE COUNT 0.1 /CUMM (0.10-0.60); BASOPHIL % 0.1 % (0.0-2.0); EOSINOPHIL % 0.1 % (0-5); GRANULOCYTE % 17.9 % (42.2-75.2); HEMATOCRIT 35.3 % (37-47); MEAN CORPUSCULAR HGB 27.7 PG (27.0-31.0); MEAN CORPUSCULAR HGB CONC 32.4 G/DL (33.0-37.0); MEAN CORPUSCULAR VOLUME 85.4 FL (81.0-99.0); PLATELET COUNT 83 /CUMM (130-400); RBC DISTRIBUTION WIDTH 20.8 % (11.5-14.5); RED BLOOD CELL CT 4.13 /CUMM (4.20-5.40); WHITE BLOOD CELL COUNT 2.6 /CUMM (4.8-10.8)
--- NOTE | 2017-10-20 11:53 | PN- Housestaff ---
Jalyn Dean 10/20/17 1153: Subjective Follow-up For: PNA, Subjective: Patient is seen and examined. She is doing well. Breathing has improved but continues to be on 2 L NC. (at home she is only on nocturnal oxygen). denies any chest pain, headache, dizziness etc. Review of Systems Constitutional: Reports: see HPI. Objective Last 24 Hrs of Vital Signs/I&O Vital Signs Date Time Temp Pulse Resp B/P B/P Pulse O2 O2 Flow FiO2 Mean Ox Delivery Rate 10/20 0800 93 Nasal 2.0L Cannula 10/20 0606 97.7 61 20 156/58 93 10/20 0000 Nasal 2.0L Cannula 10/19 2156 97.6 78 18 124/61 91 10/19 1631 94 Nasal 1.0L Cannula 10/19 1600 94 Nasal 2.0L Cannula 10/19 1330 98.0 77 18 142/64 94 Nasal 2.0L Cannula Intake & Output 10/20 1600 10/20 0800 10/20 0000 Intake Total Output Total 75 Balance -75 Output, Urine 75 Physical Exam General Appearance: Alert, Oriented X3, Cooperative, No Acute Distress Skin: No Rashes, No Breakdown HEENT: Atraumatic Neck: Supple Cardiovascular: Regular Rate, Normal S1, Normal S2 Lungs: Clear to Auscultation, Normal Air Movement, crackles at left lung base Extremities: No Cyanosis, No Edema Current Medications: Current Medications Sig/Zeb Start time Last Medication Dose Route Stop Time Status Admin Acetaminophen 325 MG Q6 PRN 10/15 0100 AC 10/16 PO 2116 Albuterol Sulfate 3 ML EVERY 4 HRS/AWAKE 10/15 0930 AC 10/20 INH 0816 Atorvastatin Calcium 20 MG 1700 10/16 1700 AC 10/19 PO 1733 Enoxaparin Sodium 40 MG DAILY 10/20 1133 UNVr SC Hydroxychloroquine 200 MG DAILY 10/15 09 AC 10/20 Sulfate PO 0847 Levofloxacin 250 MG Q24H 10/19 1200 AC 10/19 PO 1253 Lidocaine 1 PAT DAILY@1300 /08 1300 AC 10/19 EXT 1254 Nitroglycerin 0.5 GM Q6 10/16 1200 AC 10/20 TOP 0703 Omeprazole 20 MG DAILY AC 10/15 0700 AC 10/20 PO 0703 Prednisone 10 MG ONCE ONE 10/21 0900 AC PO 05/14 0901 Prednisone 30 MG ONCE ONE 10/20 899 DC 10/20 PO 10/20 900 0848 Prednisone 40 MG DAILY 10/19 899 AC 10/19 PO 09 Tramadol HCl 50 MG Q6-PRN PRN 10/15 299 AC 10/15 PO 030 Last 24 Hrs of Lab/Red Results Last 24 Hrs of Labs/Mics: Laboratory Tests 10/20/17804: Anion Gap 9, Estimated GFR > 60, BUN/Creatinine Ratio 35.0 H, CBC w Diff MAN DIFF ORDERED, RBC 4.13 L, MCV 85.4, MCH 27.7, MCHC 32.4 L, RDW 20.8 H, MPV 9.0, Gran % 17.9 L, Lymphocytes % 77.9 H, Monocytes % 4.0, Eosinophils % 0.1, Basophils % 0.1, Absolute Granulocytes 0.5 L, Absolute Lymphocytes 2.0, Absolute Monocytes 0.1, Absolute Eosinophils 0, Absolute Basophils 0, Platelet Estimate DECREASED, Anisocytosis 1+ Assessment/Plan Assessment: Patient is 86 year old female with PMH of COPD on 2 L nocturnal oxygen, lupus, MDS, hypertension and dyslipidemia was admitted with chief complaint of lethargy , confusion, fever and chills found to have pneumonia, type II MS, and anemia with + stool guaiac 1. Pneumonia. Patient seems to be doing well. Afebrile in past 24 hours. She is on levofloxacin, po prednisone and trc nebs as needed. Patient is on 2 L of oxygen, when weaned to RA at rest, sat was 90% and when weaned on ambulation, patient desaturated to 81% and was grasping for air. Patient states that she does not feel at her baseline yet. Will keep for another day, possible discharge tomorrow. 2. Elevetaed troponins Considered to have type II MS, denies chest pain. will continue NTG paste, lipitor Cardiology consults ervice on board. 3. Hypotension Stable, will continue to monitor 4. Microcytic anemia HB improved to 11.4 on 10/20, will continue to monitor. 5. thrombocytopenia platelet count dropped on 10/18. it is 83 today ALPS for dvt ppx 6. Hypokalemia Improved since yesterday. Will give 40 meq today and continue to monitor. DNR/DNI Problem List: 1. Anemia 2. Respiratory failure Pain Ratin Pain Location: none Pain Goal: Pain 4 or less Pain Plan: none Tomorrow's Labs & Rationales: none Giovanni Acosta MD 10/20/17 1603: Attending MD Review Statement Attending Statement Attending MD Statement: examined this patient, discuss w/resident/PA/TRANSPORTATION DRIVER, agreed w/resident/PA/TRANSPORTATION DRIVER, discussed with nursing Attending Assessment/Plan: Ms. Aguirre is 86 year old female with PMH of COPD on 2 L nocturnal oxygen, lupus, MDS, hypertension and dyslipidemia was admitted with complaints of fever and is currently being treated for health care associated pneumonia On examination patient is afebrile, denies any specific complaints of chest pain shortness of breath or palpitation. Denies cough. Vital signs-blood pressure 138/70, heart rate of 68, afebrile, respiratory rate of 18/m 1. Health care associated pneumonia Patient seems to be doing well. Afebrile in past 24 hours Patient received vancomycin and ceftaz for 4 days. She is on levofloxacin, po prednisone and trc nebs as needed. Patient is on 2 L of oxygen, when weaned to RA at rest, sat was 90% and when weaned on ambulation, patient desaturated to 81 % and was gasping for air 2. Type II MS 3. Hypotension - resolved 4. Microcytic anemia - stable 5. Mild thrombocytopenia - Ok to continue DVT prophylaxis until platelets less than 50K or evidence of active bleeding 6. Hypokalemia - resolving Plan to wean down oxygen and reassess for discharge in the morning
[2017-10-20 13:06] VITALS: BP 138/70
[2017-10-20 21:24] VITALS: BP 126/66
[2017-10-21 06:24] VITALS: BP 146/66
--- NOTE | 2017-10-21 07:26 | PN- Housestaff ---
Manisha PROCTOR,[facility] 10/21/17 0726: Subjective Follow-up For: PNA Subjective: Ms Aguirre was seen and examined this am. She denies any symptoms this morning and is resting comfortably in bed. Denies issues overnight states she was able sleep well last night. She is curious to find out when she can be discharged. This morning she endorses mild upper extremity right arm discomfort. States the pain is rated a 5 out of 10 and is described as intermittent. Denies any trauma to the area. She denies any fever, chills, nausea, vomiting. Denies any shortness of breath or lightheadedness. Denies any cough or sputum production. Incentive spirometer at bedside. Review of Systems Constitutional: Reports: see HPI. Objective Last 24 Hrs of Vital Signs/I&O Vital Signs Date Time Temp Pulse Resp B/P B/P Pulse O2 O2 Flow FiO2 Mean Ox Delivery Rate 10/21 0901 94 Nasal 1.0L Cannula 10/21 0800 94 Nasal 1.0L Cannula 10/21 0624 98.6 67 18 146/66 94 10/21 0000 Nasal 1.0L Cannula 10/20 2124 97.6 87 18 126/66 91 10/20 2015 95 Nasal 2.0L Cannula 10/20 1600 93 Nasal 1.0L Cannula 10/20 1553 92 Nasal 1.0L Cannula Intake & Output 10/21 1600 10/21 0800 10/21 0000 Intake Total 240 250 Output Total Balance 240 250 Intake, IV 10 Intake, Oral 240 240 Number 0 0 Bowel Movements Patient 39.491 kg Weight Weight Bed scale Measurement Method Physical Exam General Appearance: Alert, Oriented X3, Cooperative HEENT: Atraumatic, Mucous Membr. moist/pink Lymphatic: Axillary nl Cardiovascular: Regular Rate, Normal S1, Normal S2 Lungs: Clear to Auscultation Abdomen: Normal Bowel Sounds, Soft, No Tenderness Neurological: Normal Speech Extremities: No Clubbing, No Cyanosis, No Edema, Normal Pulses, Right Arm movements WNL. No erythema, tenderness, redness swelling or discomfort. Current Medications: Current Medications Sig/Zeb Start time Last Medication Dose Route Stop Time Status Admin Acetaminophen 325 MG Q6 PRN 10/15 0100 AC 10/16 PO 2116 Albuterol Sulfate 3 ML EVERY 4 HRS/AWAKE 10/15 0930 AC 10/21 INH 1142 Atorvastatin Calcium 20 MG 1700 10/16 1700 AC 10/20 PO 1719 Enoxaparin Sodium 30 MG DAILY 10/20 1300 AC 10/21 SC 0845 Hydroxychloroquine 200 MG DAILY 10/15 0900 AC 10/21 Sulfate PO 0846 Levofloxacin 250 MG Q24H 10/19 1200 AC 10/21 PO 1255 Lidocaine 1 PAT DAILY@1300 /08 1300 AC 10/19 EXT 1254 Nitroglycerin 0.5 GM Q6 10/16 1200 AC 10/21 TOP 1255 Omeprazole 20 MG DAILY AC 10/15 0700 AC 10/21 PO 0551 Prednisone 10 MG ONCE ONE 10/21 0900 DC 10/21 PO 10/21 0901 1254 Prednisone 40 MG DAILY 10/19 0900 DC 10/19 PO 0906 Tramadol HCl 50 MG Q6-PRN PRN 10/15 0300 AC 10/15 PO 0309 Last 24 Hrs of Lab/Red Results Last 24 Hrs of Labs/Mics: Laboratory Tests 10/21/17 0630: Anion Gap 11, Estimated GFR > 60, BUN/Creatinine Ratio 30.0 H Assessment/Plan Assessment: 86 year old female with past medical history significant for COPD on 2 L oxygen at night, lupus, MDS, hypertension and dyslipidemia was admitted overnight with chief complaint of lethargy, confusion, fever and chills found to have pneumonia , type II [place], and anemia with + stool guaiac Assessment and plan Respiratory #COPD CT found severe emphsema with possible superimposed mild edema -cont trc nebs Infection: #Sepsis due to Pneumonia Presenting T-max 103, pulse 125, RR 26, blood pressure 106/51, saturating 95% on [address] found patchy opacities at the lung bases, particularly at the left base representing atelectasis or pneumonia. CT abd was negative for any sources of sepsis. Continues to have no leukocytosis but patient has MDS. Flu and urinary strep pneumo/leigonaella negative. Nares + MRSA -f/u cultures -cont vanc and ceftaz-->Levofloxacin 500 mg 10/18 and then 250 mg from 10/19, will be continued for another three days, totoal coverage 10 days. -vanc trough to be drawn 10/17: 8.1 #Positive ucx Ucx growing 40k of enterococcus. Pt asymptomatic. -con to monitor for sings of infection Cardiac: #Type II [place] Troponins peaked at .17. She was seen by cardiology. Prior echocardiogram showed a decreased EF with a regional wall motion abnormality. -cont NTG paste -cont lipitor -cont cardiology recs #Hypotension Hypotension possibly related to sepsis vs adreanal insuffiency vs anemia. TSH was was 4,98 (high), total t3 0.59 (low), and free t4 1.5 (normal). -cont abx -cont hydrocortisione taper for lupus Heme onc #MDS and anemia Initially presented with Hgb of 7.0. Patient has received 2 units of prbc, so far and hgb INCREASED to 9.2. Current Hgb 8.0 Stool guaiac positive -cont monitoring H/H -cont heme onc recs who recommends HCT>25% -f/u stool guaiac Metabolic #Electrolyte abnomaltieis K 3.2 Mg 1.7, Ca 8.1 Alimentary #Hx of gerd -cont omeprazole #Mild ALP elevation Initial and repeat ALP elevated. other LFT WNL. -cont to monitor -will repeat Alkaline phosphatase as an outpatient. Neuro #Hx of Lupus -cont hydroxychloroquine -cont PO Prednisone House: DVT prophylaxis: mechanical for GI bleed Diet: Heart healthy diet Code: DNR Problem List: 1. GI bleed 2. Anemia 3. MDS (myelodysplastic syndrome) 4. Pneumonia Pain Ratin Pain Location: Initially endorsed right arm pain, however during the second visit, she denied any pain Pain Goal: Remain pain free Pain Plan: Tylenol PRN Tomorrow's Labs & Rationales: Francis Hudson 10/21/17 1148: Attending MD Review Statement Attending Statement Attending MD Statement: examined this patient, discuss w/resident/PA/BELLING MACHINE OPERATOR, agreed w/resident/PA/BELLING MACHINE OPERATOR, reviewed EMR data (avail), discussed with nursing, discussed with case mgmt Attending Assessment/Plan: pt seen and examined at bedside. d/w pt the care plan. plan is to dc her today on po abx per ID recommendations. for her pneumonia. Pt f/u with Oncology clinic for her MDS . Will set her up to follow up with oncology clinic at discharge.
--- NOTE | 2017-10-21 11:48 | PN- Infect Dx ---
Subjective Subjective: Afebrile on steroids. She feels well with no complaints. Objective Last 24 Hrs of Vital Signs/I&O Vital Signs Date Time Temp Pulse Resp B/P B/P Pulse O2 O2 Flow FiO2 Mean Ox Delivery Rate 10/21 0901 94 Nasal 1.0L Cannula 10/21 0800 94 Nasal 1.0L Cannula 10/21 0624 98.6 67 18 146/66 94 10/21 0000 Nasal 1.0L Cannula 10/20 2124 97.6 87 18 126/66 91 10/20 2015 95 Nasal 2.0L Cannula 10/20 1600 93 Nasal 1.0L Cannula 10/20 1553 92 Nasal 1.0L Cannula 10/20 1350 93 Nasal 1.0L Cannula 10/20 1306 97.6 68 18 138/70 93 Nasal 2.0L Cannula Intake & Output 10/21 1600 10/21 0800 10/21 0000 Intake Total 240 250 Output Total Balance 240 250 Intake, IV 10 Intake, Oral 240 240 Number 0 0 Bowel Movements Patient 87 lb 1 oz Weight Weight Bed scale Measurement Method Physical Exam Other Physical Findings: She appears comfortable in no acute distress Lungs crackles at the left base Heart regular rhythm with a 1/6 systolic ejection murmur Extremities no cyanosis, clubbing or edema Results Last 24 Hours of Lab Results: Laboratory Tests 10/21 0630 Chemistry Sodium (137 - 145 mmol/L) 135 L Potassium (3.5 - 5.1 mmol/L) 3.8 Chloride (98 - 107 mmol/L) 94 L Carbon Dioxide (22 - 30 mmol/L) 31 H Anion Gap (5 - 16) 11 BUN (7 - 17 mg/dL) 15 Creatinine (0.5 - 1.0 mg/dL) 0.5 Estimated GFR (>60 ml/min) > 60 BUN/Creatinine Ratio (7 - 25 %) 30.0 H Last 24 Hours of Red Results: No recent cultures Assessment/Plan ID Impression: Stable, with temperatures remaining normal (on steroids) and with her respiratory status stable, though she remains neutropenic (despite steroids) with her platelet count also decreasing, suggesting a worsening of her underlying myelodysplastic syndrome. She is now on Levaquin, Day 7 of treatment for possible pneumonia, with the CT of the chest revealing patchy opacities at the lung bases. Suggestion: 1. Continue Levaquin for 3 more days
[2017-10-21] MEDS ORDERED: LEVOFLOXACIN250 M1 PO (12:48)
[2017-10-21] MEDS ORDERED: ATORVASTATIN CA20 M1 PO (13:33)
[2017-10-21] MEDS ORDERED: NITRO-BID1 GM TOP (13:43)
[2017-10-21 14:11] VITALS: BP 110/60
[2017-10-21 14:54] VITALS: BP 110/60
== END 2017-10-21 15:55 | DRG 871 ==
LOC: ERH 20:07 → CRI 10-15 00:33 → 2NB 10-15 00:33 → ERHI 10-15 00:33 → 1NO 10-15 00:33 → ENRESERV 10-15 01:07 → CRI 10-15 01:23 → 2NB 10-15 01:41 → CRI 10-15 10:32 → ENTRNSPT 10-16 12:13 → EDTRNSPT 10-16 12:16 → EDTRNSPTSTS 10-16 12:16 → 1NO 10-16 12:29 → CMPTRNSPT 10-16 12:31 → 1NO 10-17 08:34 → ENTRNSPT 10-18 19:03 → EDTRNSPTSTS 10-18 19:15 → EDTRNSPT 10-18 19:15 → CMPTRNSPT 10-18 19:27 → 2NB 10-18 19:37
PROVIDERS: Emergency Medicine; Student in an Organized Health Care Education/Training Program
PROC: 30233N1 Transfusion of Nonautologous Red Blood Cells into Peripheral Vein, Percutaneous Approach (ICD-10-PCS; principal; 2017-10-18)
DX: A41.9 Sepsis, unspecified organism (principal); I21.A1 Myocardial infarction type 2; J15.6 Pneumonia due to other Gram-negative bacteria; J96.11 Chronic respiratory failure with hypoxia; I95.9 Hypotension, unspecified; R64 Cachexia; D70.9 Neutropenia, unspecified; E87.2 Acidosis; K92.2 Gastrointestinal hemorrhage, unspecified; Z68.1 Body mass index [BMI] 19.9 or less, adult; M32.9 Systemic lupus erythematosus, unspecified; Z99.81 Dependence on supplemental oxygen; R65.20 Severe sepsis without septic shock; D63.8 Anemia in other chronic diseases classified elsewhere; K21.9 Gastro-esophageal reflux disease without esophagitis; D46.9 Myelodysplastic syndrome, unspecified; J44.9 Chronic obstructive pulmonary disease, unspecified; Z22.322 Carrier or suspected carrier of Methicillin resistant Staphylococcus aureus; E87.6 Hypokalemia; E83.42 Hypomagnesemia; E83.51 Hypocalcemia; E78.5 Hyperlipidemia, unspecified; I10 Essential (primary) hypertension; Z79.52 Long term (current) use of systemic steroids; Z91.81 History of falling; B95.2 Enterococcus as the cause of diseases classified elsewhere
CPT/HCPCS: 1NP; 1NSP; 2NBP; CCU; 36415; 36592; 71045; 74177; 81001; 82436; 86920; 87040; 87070; 87086; 87147; 87449; 87450; 87804; 87804-59; 93005; 93010; 96365; 96375; 97110-GO; 97116-GO; 97161-GP; 97530-GO; 99291; J0131; J0713; J1650; J1720; J1940; J3370; J7040; J7512; P9016

== ENCOUNTER 2017-12-23 14:37 | Inpatient (IN) | payer OTHER, MEDICARE ==
[~2017-12-23] VITALS: Ht 147.3 cm; Wt 48.5 kg
[~2017-12-23 14:37] MED LIST changes: +ATORVASTATIN CA20 M1 PO; +LEVOFLOXACIN250 M1 PO; +NITRO-BID1 GM TOP
[2017-12-23 16:02] LABS: ABSOLUTE BASOPHIL COUNT 0 /CUMM (0.0-0.2); ABSOLUTE EOSINOPHIL COUNT 0 /CUMM (0.0-0.7); ABSOLUTE GRANULOCYTE CT 0.2 /CUMM (1.4-6.5); ABSOLUTE LYMPH COUNT 0.8 /CUMM (1.2-3.4); ABSOLUTE MONOCYTE COUNT 0.1 /CUMM (0.10-0.60); BASOPHIL % 0 % (0.0-2.0); EOSINOPHIL % 0.3 % (0-5); GRANULOCYTE % 15.1 % (42.2-75.2); HEMATOCRIT 20.7 % (37-47); MEAN CORPUSCULAR HGB 29.8 PG (27.0-31.0); MEAN CORPUSCULAR HGB CONC 31.3 G/DL (33.0-37.0); MEAN CORPUSCULAR VOLUME 95.4 FL (81.0-99.0); MEAN PLATELET VOLUME 7.9 FL (7.4-10.4); PLATELET COUNT 194 /CUMM (130-400); RBC DISTRIBUTION WIDTH 29.9 % (11.5-14.5); RED BLOOD CELL CT 2.17 /CUMM (4.20-5.40)
[2017-12-23 16:37] LABS: WHITE BLOOD CELL COUNT 1.2 /CUMM (4.8-10.8)
--- NOTE | 2017-12-23 16:40 | RADIOLOGY REPORT ---
EXAMINATION: CHEST 2 VIEWS CLINICAL INFORMATION: Chest pain. COMPARISON: 12/02/2017. TECHNIQUE: PA and lateral views of the chest were obtained. FINDINGS: The cardiac silhouette is stable. The mediastinal and hilar contours are unremarkable. There is stable interstitial prominence present throughout both lungs. There is streaky opacification within the posterior right lung base. The osseous structures are stable with multiple healed bilateral rib fractures identified. IMPRESSION: Streaky opacification within the posterior right lung base. This is nonspecific, though could correspond to atelectasis or developing infiltrate. Recommendation is for a followup chest series to be obtained following treatment and/or resolution of symptoms to assure resolution of this appearance.
--- NOTE | 2017-12-23 17:35 | ED NECK/BACK PAIN COMPLAINT ---
See Addendum History of Present Illness General Chief Complaint: General Adult Stated Complaint: BILATERAL FLANK PAIN Source: patient Exam Limitations: no limitations Vital Signs & Intake/Output Vital Signs & Intake/Output Vital Signs Date Time Temp Pulse Resp B/P B/P Pulse O2 O2 Flow FiO2 Mean Ox Delivery Rate 12/24 0401 97.9 78 20 157/70 95 Nasal 2.0L Cannula 12/24 0200 97.1 75 20 140/88 95 Nasal 2.0L Cannula 12/24 0140 97.1 82 20 138/66 94 Nasal 2.0L Cannula 12/23 2357 97.3 84 24 162/70 94 Nasal 2.0L Cannula 12/23 2117 97.7 88 18 160/72 94 Nasal 2.0L Cannula 12/23 1930 97.0 80 20 145/70 95 Nasal 2.0L Cannula 12/23 1800 91 Nasal 2.0L Cannula 12/23 1800 91 Nasal 2.0L Cannula 12/23 1742 88 18 192/73 95 Nasal 2.0L Cannula 12/23 1531 98.6 91 20 129/49 92 ED Intake and Output 12/24 0000 12/23 1200 Intake Total 500 Output Total Balance 500 Intake, IV 500 Patient 90 lb Weight Weight Reported by Patient Measurement Method Allergies Coded Allergies: NO KNOWN ALLERGIES (06/06/15) Reconcile Medications Acetaminophen (Tylenol Extra Strength) 500 MG TABLET 1 TAB PO TID Pain Atorvastatin Calcium 20 MG TABLET 20 MG PO 1700 HLD Cholecalciferol (Vitamin D3) (Vitamin D3) 2,000 UNIT TABLET 1 TAB PO DAILY VITAMIN SUPPORT (Reported) Hydroxychloroquine Sulfate 200 MG TABLET 1 TAB PO DAILY LUPUS (Reported) Levofloxacin 250 MG TABLET 1 TAB PO DAILY PNA Lidocaine (Lidoderm) 5 % ADH..PATCH 1 PAT EXT DAILY@1300 pain Nitroglycerin (Nitro-Bid) 2 % OINT...G. 0.5 GM TOP Q6 ACS Omeprazole Magnesium (Prilosec Otc) 20 MG TABLET.DR 1 20MG PO DAILY ACID REFLUX (Reported) Potassium Chloride 10 MEQ TABLET.ER 1 TAB PO BID SUPPLEMENT Prednisone 5 MG TABLET 1 TAB PO BID LUPUS (Reported) Start taking on 08/30 after the taper is complete Triage Note: PT STATES SHE HAS BILAT BACK PAIN THAT STARTED SATURDAY AFTERNOON. PT DENIES URINARY S/S PT IS A/O Triage Nurses Notes Reviewed? yes HPI: Patient presents for evaluation of bilateral back pain. The pain began abruptly Saturday after loading the faceter. It is described as a sharp lower back pain without radiation. Pain worsens with certain movements. Patient tried a prior prescription of Toradol over the weekend without improvement. Patient denies any urinary or fecal incontinence or urinary retention. She likewise denies saddle paresthesias. (Aydee PROCTOR,[place]) Past History Travel History Traveled to [place] past 21 day No Medical History Any Pertinent Medical History? see below for history Neurological: NONE EENT: NONE Cardiovascular: hypertension, hyperlipidemia Respiratory: COPD Gastrointestinal: GERD (dependent on OTC Prilosec xyrs) Hepatic: NONE Renal: urinary incontinence Musculoskeletal: degen joint disease, falls, SLE Psychiatric: NONE Endocrine: osteopenia SLE Blood Disorders: anemia, MYELODYSPLASIA Cancer(s): NONE [employer]/Reproductive: NONE History of MRSA: Yes History of VRE: No History of CDIFF: No Surgical History Surgical History: SKIN GRAFT RIGHT LEG POST FALL Psychosocial History Who do you live with Significant Other Services at Home None What is your primary language Czech Tobacco Use: Quit >30 days ago ETOH Use: denies use Illicit Drug Use: denies illicit drug use Family History Family History, If Any: FATHER (Hx "liver ca" (? if primary vs. met); non-cirrhotic.). , Age 60+ ; Cause: Postoperative complication. MOTHER, , Age 60+; Cause: Unknown cause of morbidity or mortality. SON, , Age 30-40; Cause: MVA (motor vehicle accident). Hx Contributory? No (Aydee PROCTOR,[place]) Review of Systems Review of Systems Constitutional: Reports: no symptoms. Eyes: Reports: no symptoms. Ears, Nose, Throat, Mouth: Reports: no symptoms. Respiratory: Reports: no symptoms. Cardiovascular: Reports: no symptoms. Gastrointestinal/Abdominal: Reports: no symptoms. Musculoskeletal: Reports: see HPI. Skin: Reports: no symptoms. Neurological/Psychological: Reports: no symptoms. All Other Systems: Reviewed and Negative (Aydee PROCTOR,[place]) Physical Exam Physical Exam Neck: SEE BELOW Comments: Gen.: Well-nourished, well-developed, no acute respiratory distress. Mild to moderate distress while at rest secondary to back pain. Pain worsens with movement. Head: Normocephalic, atraumatic. Eyes: Normal inspection bilaterally Ears: Normal inspection bilaterally Nose: Normal inspection Throat/mouth : Moist mucosa Neck: Supple, full range of motion, no goiter Lungs: Quiet respirations Back: Decreased range of motion secondary to pain. Tenderness over the lumbosacral spine without associated soft tissue swelling ecchymoses or erythema. Tenderness over the left paraspinal musculature as well. Extremities: Normal range of motion grossly, lower extremities: No straight leg raise sign, sensation intact bilaterally (no saddle paresthesias), deep tendon reflexes normal bilaterally, sensation to light touch intact bilaterally. Neurologic: Cranial nerves grossly intact, speech is clear Skin: warm and dry Psychiatric: Calm, cooperative, no apparent delusions or hallucinations Core Measures CVA/TIA Diagnosis: No (Aydee PROCTOR,[place]) Progress Differential Diagnosis: MUSCLE SPASM, SHINGLES, MUSCLE STRAIN, COMPRESSION FRACTURE, copd, PNEUMONIA, ANEMIA, ELECTRONIC ABNORMALITY Plan of Care: Orders Procedure Date/time Status Intake & Output 12/23 2356 Active BLOOD PRODUCT PICKUP 12/[address] in observation 12/23 1934 Active Patient Data 12/23 1934 Active BLOOD PRODUCT PICKUP 12/23 193 Active TYPE & SCREEN (NOT X-MATCH) 12/23 183 Complete LEUKOCYTE POOR (PACKED CELLS) 12/23 1831 Active URINALYSIS 12/23 1532 Complete TROPONIN LEVEL 12/23 1532 Complete LIPASE 12/23 1532 Complete COMPREHENSIVE METABOLIC PANEL 12/23 1532 Complete CBC WITHOUT DIFFERENTIAL 12/23 1532 Complete Laboratory Tests 12/23/17 1806: Urinalysis HEAVY H, Urine Color YEL, Urine Clarity HAZY H, Urine pH 7.0, Ur Specific [place] 1.020, Urine Protein TRACE H, Urine Ketones NEG, Urine Nitrite POS H, Urine Bilirubin NEG, Urine Urobilinogen 0.2, Ur Leukocyte Esterase MOD H, Ur Microscopic SEDIMENT EXAMINED, Urine RBC 1-3, Urine WBC 5-10 H, Ur Epithelial Cells MANY H, Urine Bacteria MANY H, Urine Hemoglobin TRACE-INTACT, Urine Glucose NEG 12/23/17 1536: Anion Gap 12, Estimated GFR > 60, BUN/Creatinine Ratio 37.1 H, Glucose 108 H, Calcium 9.6, Total Bilirubin 0.5, AST 22, ALT 23, Alkaline Phosphatase 118, Troponin I < 0.01, Total Protein 8.7 H, Albumin 3.8, Globulin 4.9 H, Albumin/ Globulin Ratio 0.8 L, Lipase 39, CBC w Diff NO MAN DIFF REQ, RBC 2.17 L, MCV 95.4, MCH 29.8, MCHC 31.3 L, RDW 29.9 H, MPV 7.9, Gran % 15.1 L, Lymphocytes % 72.8 H, Monocytes % 11.8 H, Eosinophils % 0.3, Basophils % 0, Absolute Granulocytes 0.2 L, Absolute Lymphocytes 0.8 L, Absolute Monocytes 0.1, Absolute Eosinophils 0, Absolute Basophils 0 Diagnostic Imaging: Discussed w/RAD: Radiology Read. CXR Impression: PATIENT: GRUPO HOANG PRESENT AGE: 87 PATIENT ACCOUNT NO: [id number] : 29 LOCATION: [facility] ORDERING PHYSICIAN: Xavi Kulkarni PA-C SERVICE DATE: 12/23/17 EXAM TYPE: RAD - XRY-CHEST XRAY , TWO VIEWS EXAMINATION: CHEST 2 VIEWS CLINICAL INFORMATION: Chest pain. COMPARISON: 12/02/2017. TECHNIQUE: PA and lateral views of the chest were obtained. FINDINGS: The cardiac silhouette is stable. The mediastinal and hilar contours are unremarkable. There is stable interstitial prominence present throughout both lungs. There is streaky opacification within the posterior right lung base. The osseous structures are stable with multiple healed bilateral rib fractures identified. IMPRESSION: Streaky opacification within the posterior right lung base. This is nonspecific, though could correspond to atelectasis or developing infiltrate. Recommendation is for a followup chest series to be obtained following treatment and/or resolution of symptoms to assure resolution of this appearance. DICTATED BY: Ramon Bermeo MD DATE/TIME DICTATED:12/23/171631 DRUG ROOM OPERATOR:CHUY DATE/TIME TRANSCRIBED:12/23/171631 CONFIDENTIAL, DO NOT COPY WITHOUT APPROPRIATE AUTHORIZATION. 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 PORTER. Return if symptoms worsen or for any concerns. (Isaura PROCTOR,Ruddy Cox) ED Attending Observation Initial Observation Note: I have seen and personally examined GRUPO HOANG on 12/23/17 at 1936. I agree with the current emergency department documentation. The disposition (admission or discharge) is uncertain at this time, she needs a period of observation for the following reason(s): Patient will require a blood transfusion and reevaluation to assess for improvement in blood counts and overall clinical condition. The ED Nurse caring for this patient has been personally informed as to what the patient is being observed for. (Aydee PROCTOR,[place]) Observation Re-Evaluation: I have reevaluated GRUPO HOANG on 12/23/17 at 2315. The physical findings that support the continued need to observe this patient include [patient is resting comfortably. Transfusion is going in without difficulty or reactive. We'll continue to monitor.]. Observation Discharge: I have reevaluated GRUPO HOANG on 12/24/17 at 0643. The patient is: ([X]): Stable for discharge (): To be admitted to Nursing Floor (): To be placed in Observation on Nursing Floor (): For transfer to other facility The patient was being observed for [anemia requiring a blood transfusion] As a result of that observation, I have determined [stable for discharge]. (Ruddy Delarosa MD)
--- NOTE | 2017-12-23 19:33 | RADIOLOGY REPORT ---
EXAMINATION: XR THORACOLUMBAR SPINE CLINICAL INFORMATION: Back pain. COMPARISON: None TECHNIQUE: 2 views of the thoracolumbar spine were obtained. FINDINGS: There is moderate S-shaped curvature to the thoracolumbar spine. There are no acute fractures. There is disc height loss at and L2/L3, L3/L4 and L4/L5. There are no acute fractures. Incidental note is made of a large amount of stool within the colon. IMPRESSION: Degenerative change as stated above. No evidence for acute injury. Large amount stool within the colon.
[2017-12-24] MEDS ORDERED: POTASSIUM CHLO10 ME5 PO (08:31)
--- NOTE | 2017-12-24 10:50 | History & Physical ---
Liz Lowery MD 12/24/17 1049: General Information and HPI MD Statement: I have seen and personally examined GRUPO HOANG and documented this H&P. The patient is a 87 year old F who presented with a patient stated chief complaint of severe shoulder pain Source of Information: patient, old records Exam Limitations: no limitations History of Present Illness: This is an 87-year-old female with a past medical history significant for hypertension, hyperlipidemia, COPD on nighttime oxygen, GERD, urinary incontinence, degenerative joint disease, SLE on chronic prednisone and hydroxychloroquine, osteopenia, myelodysplasia with chronic anemia that comes to see us for severe back and shoulder pain. 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 She could not pinpoint one particular movement that caused the injury. She has never had pain like this before and prior to the incident, was pain-free. She notes that the pain is worse when she takes a deep breath. She can pinpoint the pain in the mid lower back and also in the anterior part of her left shoulder joint. She also has pain on the right shoulder but not as severe. She notes that the pain in the left shoulder is at a 10/10 and has been worsening since the injury. It is worse on movement. Because of the pain, she has not eaten anything since Saturday. She arrived at the ER on Saturday but was held as an ED obs until it was found that she desaturated to 79% on ambulation. She notes not actually feeling short of breath at the time. No cough, no chest pain. While in the ED, the patient also complained of muscle spasm and was given Flexeril which she notes "did not really help". She denies any weakness, focal neuro deficits, headache, urinary symptoms, bowel symptoms, fever, chills, nausea, vomiting. She has not recently traveled and has no sick contacts. She is not on blood thinners and has not noticed any increased bleeding rectally. Prior to Saturday, she notes that she had been eating well and had a good appetite. The patient lives in an apartment with her daughter and uses a cane for ambulation normally. She is usually independent in her activities of daily living. She has noted no recent falls or injuries. Her last fall was 1 year ago while she was at rehab. It was mechanical fall and she had no loss of consciousness or injury. She required a skin graft after the fall. Her PCP is Dr. Combs and she sees Dr. Gibbons for her myelodysplasia and anemia. She has never had any other neoplasias, no chemo, no radiation. The patient denies any alcohol use or drug use. She smoked for about 30 years but quit around 20 years ago. 1.5 packs per day at that time. Allergies/Medications Allergies: Coded Allergies: NO KNOWN ALLERGIES (NONE 12/24/17) Home Med list Atorvastatin Calcium 20 MG TABLET 20 MG PO 1700 HLD Cholecalciferol (Vitamin D3) (Vitamin D3) 2,000 UNIT TABLET 1 TAB PO DAILY VITAMIN SUPPORT (Reported) Hydroxychloroquine Sulfate 200 MG TABLET 1 TAB PO DAILY LUPUS (Reported) Nitroglycerin (Nitro-Bid) 2 % OINT...G. 0.5 GM TOP Q6 ACS Omeprazole Magnesium (Prilosec Otc) 20 MG TABLET.DR 1 20MG PO DAILY ACID REFLUX (Reported) Potassium Chloride 10 MEQ TAB.ER.PRT 2 TAB PO BID SUPPLEMENT (Reported) Prednisone 5 MG TABLET 1 TAB PO BID LUPUS (Reported) Start taking on 08/30 after the taper is complete Compliance With Home Meds: GOOD Past History Travel History Traveled to [place] past 21 day No Medical History Blood Transfusion Hx: Yes Neurological: NONE EENT: NONE Cardiovascular: hypertension, hyperlipidemia Respiratory: COPD Gastrointestinal: GERD (dependent on OTC Prilosec xyrs) Hepatic: NONE Renal: urinary incontinence Musculoskeletal: degen joint disease, falls, SLE Psychiatric: NONE Endocrine: osteopenia SLE Blood Disorders: anemia, MYELODYSPLASIA Cancer(s): NONE 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 Psychosocial History Who Do You Live With? spouse (in law apt next to dtr), self Services at Home: None Primary Language: Tanzanian Smoking Status: Former Smoker ETOH Use: denies use Illicit Drug Use: denies illicit drug use Living Will? no Power of Art Tracer/HCP? no Functional Ability ADLs Independent: dressing, eating, toileting, bathing. Ambulation: cane IADLs Independent: shopping, housework, finances, food prep, telephone, transportation , medication admin. Review of Systems Review of Systems Constitutional: Reports: weakness. EENTM: Reports: no symptoms. Cardiovascular: Reports: no symptoms. Respiratory: Reports: see HPI. GI: Reports: no symptoms. Genitourinary: Reports: no symptoms. Musculoskeletal: Reports: back pain, joint pain. Skin: Reports: no symptoms. Neurological/Psychological: Reports: no symptoms. Hematologic/Endocrine: Reports: no symptoms. Immunologic/Allergic: Reports: no symptoms. Exam & Diagnostic Data Last 24 Hrs of Vital Signs/I&O Vital Signs Date Time Temp Pulse Resp B/P B/P Pulse O2 O2 Flow FiO2 Mean Ox Delivery Rate 12/24 1250 98.1 93 18 181/72 91 12/24 1218 97.8 72 21 152/64 95 Nasal 3.0L Cannula 12/24 1015 98.1 76 20 140/60 92 Nasal 3.0L Cannula 12/24 0758 98.0 82 20 140/72 94 Room Air 12/24 0657 97.6 76 18 151/78 95 Nasal 2.0L Cannula 12/24 0401 97.9 78 20 157/70 95 Nasal 2.0L Cannula 12/24 0200 97.1 75 20 140/88 95 Nasal 2.0L Cannula 12/24 0140 97.1 82 20 138/66 94 Nasal 2.0L Cannula 12/23 2357 97.3 84 24 162/70 94 Nasal 2.0L Cannula 12/23 2117 97.7 88 18 160/72 94 Nasal 2.0L Cannula 12/23 1930 97.0 80 20 145/70 95 Nasal 2.0L Cannula 12/23 1800 91 Nasal 2.0L Cannula 12/23 1800 91 Nasal 2.0L Cannula 12/23 1742 88 18 192/73 95 Nasal 2.0L Cannula 12/23 1531 98.6 91 20 129/49 92 Intake & Output 12/24 1600 12/24 0800 12/24 0000 Intake Total 500 Output Total Balance 500 Intake, IV 500 Patient 90 lb Weight Physical Exam General Appearance Alert, Oriented X3, Cooperative, Moderate Distress Skin No Rashes, patient has scattered hematomas, notes they are chronic. lower extremity CVS changes. Skin Temp/Moisture Exam: Warm/Dry Sepsis Skin Exam (color): Normal for Ethnicity HEENT Atraumatic, PERRLA, EOMI, Mucous Membr. moist/pink Neck Supple, No JVD Cardiovascular Regular Rate, Normal S1, Normal S2, No Murmurs Lungs Clear to Auscultation, Normal Air Movement Abdomen Normal Bowel Sounds, Soft, No Tenderness Neurological Normal Speech, Sensation Intact, Cranial Nerves 3-12 NL, strength decreased in her upper extremities secondary to pain, strength good in lower extremities. Extremities No Clubbing, No Cyanosis, No Edema, Normal Pulses, No Tenderness/ Swelling Vascular Normal Pulses, Pulses Symmetrical Last 24 Hrs of Labs/Red: Laboratory Tests 12/24/17 1130: Anion Gap 9, Estimated GFR > 60, BUN/Creatinine Ratio 24.3, PT 13.6 H, INR 1.24 H, CBC w Diff MAN DIFF ORDERED, RBC 3.10 L, MCV 89.1, MCH 28.7, MCHC 32.2 L, RDW 27.3 H, MPV 7.9, Gran % 11.1 L, Lymphocytes % 58.9 H, Monocytes % 30.0 H , Eosinophils % 0, Basophils % 0, Absolute Granulocytes 0.3 L, Segmented Neutrophils 13 L, Band Neutrophils 1, Absolute Lymphocytes 1.5, Lymphocytes 54 H, Monocytes 32 H, Absolute Monocytes 0.7 H, Absolute Eosinophils 0, Absolute Basophils 0, Nucleated RBCs 1 H, Platelet Estimate ADEQUATE, Hypochromic- Microcytic 2+, Poikilocytosis 2+, Anisocytosis 2+ 12/23/17 1806: Urinalysis HEAVY H, Urine Color YEL, Urine Clarity HAZY H, Urine pH 7.0, Ur Specific [place] 1.020, Urine Protein TRACE H, Urine Ketones NEG, Urine Nitrite POS H, Urine Bilirubin NEG, Urine Urobilinogen 0.2, Ur Leukocyte Esterase MOD H, Ur Microscopic SEDIMENT EXAMINED, Urine RBC 1-3, Urine WBC 5-10 H, Ur Epithelial Cells MANY H, Urine Bacteria MANY H, Urine Hemoglobin TRACE-INTACT, Urine Glucose NEG 12/23/17 1536: Anion Gap 12, Estimated GFR > 60, BUN/Creatinine Ratio 37.1 H, Glucose 108 H, Calcium 9.6, Total Bilirubin 0.5, AST 22, ALT 23, Alkaline Phosphatase 118, Troponin I < 0.01, Total Protein 8.7 H, Albumin 3.8, Globulin 4.9 H, Albumin/ Globulin Ratio 0.8 L, Lipase 39, CBC w Diff NO MAN DIFF REQ, RBC 2.17 L, MCV 95.4, MCH 29.8, MCHC 31.3 L, RDW 29.9 H, MPV 7.9, Gran % 15.1 L, Lymphocytes % 72.8 H, Monocytes % 11.8 H, Eosinophils % 0.3, Basophils % 0, Absolute Granulocytes 0.2 L, Absolute Lymphocytes 0.8 L, Absolute Monocytes 0.1, Absolute Eosinophils 0, Absolute Basophils 0 Microbiology 12/24 1152 URINE ROUT: Urine Culture - COLB Assessment/Plan Assessment: This is an 87-year-old female with a past medical history significant for hypertension, hyperlipidemia, COPD on nighttime oxygen, GERD, urinary incontinence, degenerative joint disease, SLE on chronic prednisone and hydroxychloroquine, osteopenia, myelodysplasia with chronic anemia that comes to see us for severe back and shoulder pain. 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 She is usually fairly independent and ambulates with a walker. However this pain is hindering her from moving in any way. The patient was found on CBCs to have acute anemia with a hemoglobin of 6.5 down from her baseline of 8-10. She was given 2 units of blood in the ED and held as an observation patient but was found to desaturate to 79% on ambulation so is being admitted. Patient had an echocardiogram done in July of this year which showed mildly decreased EF of 40% with mid to distal anteroseptal wall hypokinesis and impaired LV relaxation, mild mitral regurgitation and trace aortic insufficiency. Of note, patient sees Dr. Gibbons for her myelodysplasia. In the ED, vitals were temperature 98.1, heart rate 76, respiratory rate 20, blood pressure 140/60, 92% oxygen saturation on 3 L up from 79% on room air during ambulation. Patient's labs showed WBC of 1.2 down from her baseline of 2-3, hemoglobin of 6.5, patient given 2 units of blood, normal platelets. Her potassium is found to be 5.2. Her creatinine is normal. Her liver function tests are normal. Her UA showed evidence of infection with positive nitrites and leukocyte esterase. Chest x-ray showed a streaky opacity in the posterior right lung base. CT thoracolumbar spine showed degenerative changes with no evidence of acute injury. In the ED, the patient was given morphine 2 mg IV x2 and Flexeril 5 mg p.o. x1. She was also given Prilosec for her GERD as she was there overnight and albuterol with supplemental oxygen for her breathing. Assessment Acute on chronic anemia status post 2 units of blood secondary to myelodysplasia Acute hypoxic respiratory failure with desaturation on ambulation to 79% most probably secondary to her COPD with possibility of pneumonia on chest x-ray, does not meet criteria for SIRS. Patient has no wheezing on exam. She is on oxygen at night at home. Other possibilities could be pulmonary embolism, her significant anemia, or atelectasis. Severe left shoulder and back pain with unclear origin as patient has pain out of proportion to history, no injury and no chronic pain issues. Mild hyperkalemia History of SLE Plan -Admit patient to general medical floors for evaluation and treatment. -Left shoulder x-ray -For pain control we will give scheduled Tylenol 650 mg every 6 for mild pain and oxycodone 5 mg every 6 for moderate to severe pain. -CTA to rule out PE as patient's cause for hypoxia -TRC nebs -Hold off antibiotics even though patient has evidence of UTI on UA as well as streaky opacity in the lung. Patient is asymptomatic. Will do urine cultures. -Physical therapy and case management for potential placement down the line once the patient's pain resolves -Start patient's medications including prednisone and hydroxychloroquine but hold her home potassium as she has mild hyperkalemia at the moment. -Repeat CBCs today status post 2 units of blood -CBCs and BEP tomorrow -Consult with wool shearer Dr. Gibbons -Stool guaiac DVT prophylaxis with alps and subcutaneous heparin Patient is DNR/DNI Regular diet As Ranked By This Provider Problem List: 1. 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 MDS (myelodysplastic syndrome) 3. Hypoxia 4. Back pain, acute 5. Shoulder pain, acute Core Measures/Misc (02/24) Acute Coronary Syndrome ACS Diagnosis: No Congestive Heart Failure Congestive Heart Failure Diagnosis No Cerebrovascular Accident CVA/TIA Diagnosis: No VTE (View Protocol) VTE Risk Factors Acute Medical Illness No Mechanical [facility] Pharm Prophylaxis d/t Medical Contraindication Sepsis (View protocol) Sepsis Present: No If YES complete Sepsis Event Note If YES complete Sepsis Event Note Steph Boston MD 12/24/17 1117: Core Measures/Misc (02/24) Sepsis (View protocol) If YES complete Sepsis Event Note If YES complete Sepsis Event Note Attending MD Review Statement Attending Statement Attending MD Statement: examined this patient, discuss w/resident/PA/DEBRIDGING MACHINE OPERATOR, agreed w/resident/PA/DEBRIDGING MACHINE OPERATOR, reviewed EMR data (avail), discussed with nursing, reviewed images, amended to note Attending Assessment/Plan: 87 y/o F with PMh sig for COPD w/ 2L nocturnal O2, HLD, HTN, Myelodysplasia w/ injection of Darbipoient every other week , lupus on hydroxychloroquine 200mg daily and prednisone 10, GERD, DJD, presented to the emergency room yesterday with complaints of left shoulder pain. 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 She was taking Toradol at home for the pain management but the pain did not improve. Patient came into the emergency room and was given pain medications. Apparently her oxygen saturations dropped when she was ambulating. She was also found to be anemic and required 2 units of RBC transfusion. Her white blood cell count was also found to be low. The decision was made to admit the patient secondary to her hypoxia. Patient continues to complain of this left shoulder pain. Her chest x-ray and thoracolumbar spine x-rays were obtained. There is no evidence of fracture. There is some atelectasis. Patient denies any coughing, fevers, chills. She denies feeling short of breath as such. She denies any chest pain. Vital Signs Date Time Temp Pulse Resp B/P B/P Pulse O2 O2 Flow FiO2 Mean Ox Delivery Rate 12/24 1015 98.1 76 20 140/60 92 Nasal 3.0L Cannula 12/24 0758 98.0 82 20 140/72 94 Room Air 12/24 0657 97.6 76 18 151/78 95 Nasal 2.0L Cannula 12/24 0401 97.9 78 20 157/70 95 Nasal 2.0L Cannula 12/24 0200 97.1 75 20 140/88 95 Nasal 2.0L Cannula 12/24 0140 97.1 82 20 138/66 94 Nasal 2.0L Cannula 12/23 2357 97.3 84 24 162/70 94 Nasal 2.0L Cannula 12/23 2117 97.7 88 18 160/72 94 Nasal 2.0L Cannula 12/23 1930 97.0 80 20 145/70 95 Nasal 2.0L Cannula 12/23 1800 91 Nasal 2.0L Cannula 12/23 1800 91 Nasal 2.0L Cannula 12/23 1742 88 18 192/73 95 Nasal 2.0L Cannula 12/23 1531 98.6 91 20 129/49 92 on exam; aox3, nad. cv; s1,s2, rrr resp; decrease bs at b/l bases. abd; soft, nt, bs+ ext; no edema. Laboratory Tests 12/23 12/23 1806 1536 Chemistry Sodium (137 - 145 mmol/L) 137 Potassium (3.5 - 5.1 mmol/L) 5.2 H Chloride (98 - 107 mmol/L) 98 Carbon Dioxide (22 - 30 mmol/L) 27 Anion Gap (5 - 16) 12 BUN (7 - 17 mg/dL) 26 H Creatinine (0.5 - 1.0 mg/dL) 0.7 Estimated GFR (>60 ml/min) > 60 BUN/Creatinine Ratio (7 - 25 %) 37.1 H Glucose (65 - 99 mg/dL) 108 H Calcium (8.4 - 10.2 mg/dL) 9.6 Total Bilirubin (0.2 - 1.3 mg/dL) 0.5 AST (14 - 36 U/L) 22 ALT (9 - 52 U/L) 23 Alkaline Phosphatase (<127 U/L) 118 Troponin I (< 0.11 ng/ml) < 0.01 Total Protein (6.3 - 8.2 g/dL) 8.7 H Albumin (3.5 - 5.0 g/dL) 3.8 Globulin (1.9 - 4.2 gm/dL) 4.9 H Albumin/Globulin Ratio (1.1 - 2.2 %) 0.8 L Lipase (23 - 300 U/L) 39 Hematology CBC w Diff NO MAN DIFF REQ WBC (4.8 - 10.8 /CUMM) 1.2 *L RBC (4.20 - 5.40 /CUMM) 2.17 L Hgb (12.0 - 16.0 G/DL) 6.5 *L Hct (37 - 47 %) 20.7 L MCV (81.0 - 99.0 FL) 95.4 MCH (27.0 - 31.0 PG) 29.8 MCHC (33.0 - 37.0 G/DL) 31.3 L RDW (11.5 - 14.5 %) 29.9 H Plt Count (130 - 400 /CUMM) 194 MPV (7.4 - 10.4 FL) 7.9 Gran % (42.2 - 75.2 %) 15.1 L Lymphocytes % (20.5 - 51.1 %) 72.8 H Monocytes % (1.7 - 9.3 %) 11.8 H Eosinophils % (0 - 5 %) 0.3 Basophils % (0.0 - 2.0 %) 0 Absolute Granulocytes (1.4 - 6.5 /CUMM) 0.2 L Absolute Lymphocytes (1.2 - 3.4 /CUMM) 0.8 L Absolute Monocytes (0.10 - 0.60 /CUMM) 0.1 Absolute Eosinophils (0.0 - 0.7 /CUMM) 0 Absolute Basophils (0.0 - 0.2 /CUMM) 0 Urines Urinalysis HEAVY H Urine Color (YEL,AMB,STR) YEL Urine Clarity (CLEAR) HAZY H Urine pH (5.0 - 8.0) 7.0 Ur Specific [place] (1.001 - 1.035) 1.020 Urine Protein (NEG,<30 MG/DL) TRACE H Urine Ketones (NEG) NEG Urine Nitrite (NEG) POS H Urine Bilirubin (NEG) NEG Urine Urobilinogen (0.1 - 1.0 EU/dl) 0.2 Ur Leukocyte Esterase (NEG) MOD H Ur Microscopic SEDIMENT EXAMINED Urine RBC (0 - 5 /HPF) 1-3 Urine WBC (0 - 2 /HPF) 5-10 H Ur Epithelial Cells (NONE,FEW) MANY H Urine Bacteria (NEG/NONE) MANY H Urine Hemoglobin (NEG) TRACE-INTACT Urine Glucose (N MG/DL) NEG A/P; 87 y/o F with PMh sig for COPD w/ 2L nocturnal O2, HLD, HTN, Myelodysplasia w/ injection of Darbipoient every other week , lupus on hydroxychloroquine 200mg daily and prednisone 10, GERD, DJD admitted with left shoulder pain likley 2/2 to [facility]. She was also found to be hypoxic, acute on chronic anemia and leukopenia. Patient admitted to medicine. We have ordered a repeat blood work including CBC and BP. Patient has received 2 units of transfusion and we want to follow-up on the H&H. Please order stool for guaiac. Please order EKG. Her chest x-ray yesterday shows possibility of atelectasis versus infiltrate. Patient has no symptoms of cough or fever. She is afebrile here. Will hold off on further antibiotics. Will obtain another CXR o see if ther is any fluid overload from blood transfusions that she received. If there is anuy evidence of fluid overload on CXR, she should receive small dose of IV lasix. She is requiring 3 L of oxygen which is higher than her baseline. She only requires nocturnal oxygen at home. Please consult hematology. Will also obtain a shoulder x-ray for the left shoulder as her pain is mostly in the left shoulder. She has bilateral shoulder pain but left more than right. Her pain will be managed with Tylenol and low-dose oxycodone. Please continue the rest of her home medications. DVT prophylaxis: Heparin subcu. She is a DNR/DNI.
[2017-12-24] MEDS ORDERED: NITRO-BID1 GM TOP (11:35)
[2017-12-24 11:48] LABS: ABSOLUTE BASOPHIL COUNT 0 /CUMM (0.0-0.2); ABSOLUTE EOSINOPHIL COUNT 0 /CUMM (0.0-0.7); BASOPHIL % 0 % (0.0-2.0); EOSINOPHIL % 0 % (0-5); MEAN PLATELET VOLUME 7.9 FL (7.4-10.4)
[2017-12-24 11:51] LABS: ABSOLUTE GRANULOCYTE CT 0.3 /CUMM (1.4-6.5); ABSOLUTE LYMPH COUNT 1.5 /CUMM (1.2-3.4); ABSOLUTE MONOCYTE COUNT 0.7 /CUMM (0.10-0.60); GRANULOCYTE % 11.1 % (42.2-75.2); MEAN CORPUSCULAR HGB 28.7 PG (27.0-31.0); MEAN CORPUSCULAR HGB CONC 32.2 G/DL (33.0-37.0); PLATELET COUNT 149 /CUMM (130-400); RBC DISTRIBUTION WIDTH 27.3 % (11.5-14.5)
[2017-12-24 11:56] LABS: PT 13.6 SEC (9.4-12.5)
[2017-12-24 12:01] LABS: WHITE BLOOD CELL COUNT 2.5 /CUMM (4.8-10.8)
[2017-12-24 12:02] LABS: HEMATOCRIT 27.6 % (37-47); MEAN CORPUSCULAR VOLUME 89.1 FL (81.0-99.0)
--- NOTE | 2017-12-24 15:57 | RADIOLOGY REPORT ---
EXAMINATION: XR SHOULDER, LEFT CLINICAL INFORMATION: Severe left shoulder pain. COMPARISON: Several prior chest x-rays, most recent of which is dated 12/23/2017. TECHNIQUE: Three views of the left shoulder were obtained portably. FINDINGS: Evaluation is limited due to nonstandard positioning. Diffuse osteopenia is seen. No acute fracture or dislocation. There is mild degenerative change in the glenohumeral and acromioclavicular joints with joint space narrowing and mild spurring and cystic changes seen. Small calcific density is seen adjacent to the greater tuberosity of the humeral head, likely within the rotator cuff tendons. Superior subluxation of the left humeral head is seen, suggesting underlying rotator cuff disease. Several old healed fracture deformities of the lateral left ribs is seen with associated pleural thickening, unchanged. Chronic diffuse reticular opacities in the left lung are also unchanged. IMPRESSION: 1. Diffuse osteopenia. No acute fracture. 2. Mild degenerative changes in the glenohumeral and acromioclavicular joints. 3. Suspect underlying chronic rotator cuff disease. Clinical correlation requested. 4. Old healed fracture deformities of the left lateral ribs. 5. Chronic interstitial changes in the left lung.
--- NOTE | 2017-12-24 15:58 | RADIOLOGY REPORT ---
EXAMINATION: CHEST 1 VIEW CLINICAL INFORMATION: Shortness of breath. COMPARISON: 12/23/2017. TECHNIQUE: An AP view of the chest is provided. FINDINGS: The cardiac silhouette is stable. There is bibasilar airspace disease. Airspace disease within the right base is stable with new opacification in the left lung base. Again identified are lateral left rib fractures, likely chronic. There are no discernible pleural effusions or pneumothoraces. IMPRESSION: Bibasilar airspace disease, increased from prior exam. Chronic lateral left rib fractures again identified.
[2017-12-24 16:41] VITALS: BP 146/70
[2017-12-24 22:34] VITALS: BP 130/80
[2017-12-25 06:49] VITALS: BP 140/60
--- NOTE | 2017-12-25 07:44 | Cons- Hematology ---
General Information and HPI Consulting Request Date of Consult: 12/25/17 Requested By: Aydee PROCTOR,[place] Reason for Consult: MDS, anemia Source of Information: patient, old records Exam Limitations: no limitations History of Present Illness: Ms. 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 Pain has been on going since last Saturday. She state the pain is worse on the left shoulder. She denies any injury. She does have pain normally but this is worse than usual. Pain in the left shoulder is 10/10. There is no radiation. Pain is worse with moment. Pain is better with rest. She denies any worsening shortness of breath or chest pain. She denies any nausea or vomiting. She denies any fever or chills. On presentation, she was noted to have oxygen saturation of 92% on 2L NC. WBC was 1200. Hemoglobin was 6.5 with hematocrit of 20.7. Platelet count is normal at 194,000. She was transfused with 2 unit pRBC. She was placed on oxygen. Chest x-ray demonstrated streaky opacification within the posterior right lung base. She has felt better since admission. Pain is still in her shoulder but is back to her baseline. Allergies/Medications Allergies: Coded Allergies: NO KNOWN ALLERGIES (NONE 12/24/17) Home Med List: Atorvastatin Calcium 20 MG TABLET 20 MG PO 1700 HLD Cholecalciferol (Vitamin D3) (Vitamin D3) 2,000 UNIT TABLET 1 TAB PO DAILY VITAMIN SUPPORT (Reported) Hydroxychloroquine Sulfate 200 MG TABLET 1 TAB PO DAILY LUPUS (Reported) Nitroglycerin (Nitro-Bid) 2 % OINT...G. 0.5 GM TOP Q6 ACS Omeprazole Magnesium (Prilosec Otc) 20 MG TABLET.DR 1 20MG PO DAILY ACID REFLUX (Reported) Potassium Chloride 10 MEQ TAB.ER.PRT 2 TAB PO BID SUPPLEMENT (Reported) Prednisone 5 MG TABLET 1 TAB PO BID LUPUS (Reported) Start taking on 08/30 after the taper is complete Current Medications: Current Medications Sig/Zeb Start time Last Medication Dose Route Stop Time Status Admin Acetaminophen 0 .STK-MED ONE 12/24 1225 DC PO Acetaminophen 650 MG Q6 12/24 1200 AC 12/25 PO 0502 Atorvastatin Calcium 20 MG 1700 12/24 1700 AC 12/24 PO 1801 Cholecalciferol 2,000 IU DAILY 12/24 1133 AC 12/24 PO 1428 Heparin Sodium 0 .STK-MED ONE 12/24 1619 DC (Porcine) .ROUTE Heparin Sodium 5,000 UNIT Q8 12/24 1425 AC 12/25 (Porcine) SC 0503 Hydroxychloroquine 200 MG DAILY 12/24 1133 AC 12/24 Sulfate PO 1428 Morphine Sulfate 2 MG ONCE ONE 12/24 0900 DC 12/24 IV 12/24 0901 0825 Morphine Sulfate 0 .STK-MED ONE 12/24 0821 DC .ROUTE Multivitamins 0 .STK-MED ONE 12/24 1226 DC PO Multivitamins 1 TAB DAILY 12/24 1129 AC 12/24 PO 1248 Omeprazole 0 .STK-MED ONE 12/24 1226 DC PO Omeprazole 20 MG DAILY AC 12/24 1145 AC 12/25 PO 0634 Oxycodone HCl 5 MG Q6P PRN 12/24 1200 AC PO Prednisone 0 .STK-MED ONE 12/24 1225 DC PO Prednisone 5 MG BID 12/24 1134 AC 12/24 PO 2118 Review of Systems Review of Systems Constitutional: Denies: chills, fever, weakness. Cardiovascular: Denies: chest pain, orthopena, palpitations. Respiratory: Denies: cough, hemoptysis, short of breath, sputum production. GI: Denies: abdominal pain, constipation, diarrhea, nausea, bloody stool, vomiting. Genitourinary: Denies: dysuria. Musculoskeletal: Reports: back pain, joint pain. Denies: muscle pain, muscle stiffness. Neurological/Psychological: Denies: ataxia. Hematologic/Endocrine: Denies: bruising, bleeding. 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 if primary vs. met); non-cirrhotic.). , Age 60+ ; Cause: Postoperative complication. MOTHER, , Age 60+; Cause: Unknown cause of morbidity or mortality. SON, , Age 30-40; Cause: MVA (motor vehicle accident). Psychosocial History Who Do You Live With? spouse (in law apt next to dtr), self Services at Home: None Primary Language: Djib[place]ian Smoking Status: Former Smoker ETOH Use: denies use Illicit Drug Use: denies illicit drug use Living Will? no Power of Interior Specialist/HCP? no Functional Ability ADLs Independent: dressing, eating, toileting, bathing. Ambulation: cane IADLs Independent: shopping, housework, finances, food prep, telephone, transportation , medication admin. Exam & Diagnostic Data Vital Signs and I&O Vital Signs Date Time Temp Pulse Resp B/P B/P Pulse O2 O2 Flow FiO2 Mean Ox Delivery Rate 12/25 0649 99.1 58 20 140/60 98 Nasal 4.0L Cannula 12/25 0000 Nasal 4.0L Cannula 12/24 2234 99.0 69 18 130/80 94 Nasal Cannula 12/24 1641 99.2 87 18 146/70 94 Nasal 4.0L Cannula 12/24 1630 94 Nasal 4.0L Cannula 12/24 1428 78 17 174/80 100 Room Air 12/24 1250 98.1 93 18 181/72 91 12/24 1218 97.8 72 21 152/64 95 Nasal 3.0L Cannula 12/24 1015 98.1 76 20 140/60 92 Nasal 3.0L Cannula 12/24 0758 98.0 82 20 140/72 94 Room Air Intake & Output 12/25 0800 12/25 0000 12/24 1600 Intake Total 120 Output Total 300 Balance -180 Intake, Oral 120 Output, Urine 300 Patient 48.223 kg 40.823 kg Weight Weight Bed scale Reported by Patient Measurement Method Physical Exam General Appearance: well developed/nourished, no apparent distress, alert, awake , comfortable, thin Head: atraumatic, normal appearance Eyes: Bilateral: PERRL, EOMI. Ears, Nose, Throat: normal pharynx Neck: normal inspection Respiratory: chest non-tender, no respiratory distress, quiet respiration Cardiovascular: regular rate/rhythm Gastrointestinal: normal bowel sounds, soft, non-tender Extremities: no edema Neurologic/Psych: awake, alert, oriented x 3 Skin: hyperpigmented lower extremity Last 48 Hours of Lab Results: Laboratory Tests 12/25 12/24 0639 1130 Chemistry Sodium (137 - 145 mmol/L) Pending 135 L Potassium (3.5 - 5.1 mmol/L) Pending 4.3 Chloride (98 - 107 mmol/L) Pending 96 L Carbon Dioxide (22 - 30 mmol/L) Pending 30 Anion Gap (5 - 16) Pending 9 BUN (7 - 17 mg/dL) Pending 17 Creatinine (0.5 - 1.0 mg/dL) Pending 0.7 Estimated GFR (>60 ml/min) > 60 BUN/Creatinine Ratio (7 - 25 %) Pending 24.3 Coagulation PT (9.4 - 12.5 SEC) 13.6 H INR (0.90 - 1.19) 1.24 H Hematology CBC w Diff Pending MAN DIFF ORDERED WBC (4.8 - 10.8 /CUMM) Pending 2.5 L RBC (4.20 - 5.40 /CUMM) Pending 3.10 L Hgb (12.0 - 16.0 G/DL) Pending 8.9 L Hct (37 - 47 %) Pending 27.6 L MCV (81.0 - 99.0 FL) Pending 89.1 MCH (27.0 - 31.0 PG) Pending 28.7 MCHC (33.0 - 37.0 G/DL) Pending 32.2 L RDW (11.5 - 14.5 %) Pending 27.3 H Plt Count (130 - 400 /CUMM) Pending 149 MPV (7.4 - 10.4 FL) Pending 7.9 Gran % (42.2 - 75.2 %) 11.1 L Lymphocytes % (20.5 - 51.1 %) 58.9 H Monocytes % (1.7 - 9.3 %) 30.0 H Eosinophils % (0 - 5 %) 0 Basophils % (0.0 - 2.0 %) 0 Absolute Granulocytes (1.4 - 6.5 /CUMM) 0.3 L Segmented Neutrophils (42.2 - 75.2 %) 13 L Band Neutrophils (0.0 - 5.0 %) 1 Absolute Lymphocytes (1.2 - 3.4 /CUMM) 1.5 Lymphocytes (20.5 - 51.1 %) 54 H Monocytes (1.7 - 9.3 %) 32 H Absolute Monocytes (0.10 - 0.60 /CUMM) 0.7 H Absolute Eosinophils (0.0 - 0.7 /CUMM) 0 Absolute Basophils (0.0 - 0.2 /CUMM) 0 Nucleated RBCs (0.0 - 0.0 /100WBC) 1 H Platelet Estimate (ADEQUATE) ADEQUATE Hypochromic-Microcytic 2+ Poikilocytosis 2+ Anisocytosis 2+ 12/23 12/23 1806 1536 Chemistry Sodium (137 - 145 mmol/L) 137 Potassium (3.5 - 5.1 mmol/L) 5.2 H Chloride (98 - 107 mmol/L) 98 Carbon Dioxide (22 - 30 mmol/L) 27 Anion Gap (5 - 16) 12 BUN (7 - 17 mg/dL) 26 H Creatinine (0.5 - 1.0 mg/dL) 0.7 Estimated GFR (>60 ml/min) > 60 BUN/Creatinine Ratio (7 - 25 %) 37.1 H Glucose (65 - 99 mg/dL) 108 H Calcium (8.4 - 10.2 mg/dL) 9.6 Total Bilirubin (0.2 - 1.3 mg/dL) 0.5 AST (14 - 36 U/L) 22 ALT (9 - 52 U/L) 23 Alkaline Phosphatase (<127 U/L) 118 Troponin I (< 0.11 ng/ml) < 0.01 Total Protein (6.3 - 8.2 g/dL) 8.7 H Albumin (3.5 - 5.0 g/dL) 3.8 Globulin (1.9 - 4.2 gm/dL) 4.9 H Albumin/Globulin Ratio (1.1 - 2.2 %) 0.8 L Lipase (23 - 300 U/L) 39 Hematology CBC w Diff NO MAN DIFF REQ WBC (4.8 - 10.8 /CUMM) 1.2 *L RBC (4.20 - 5.40 /CUMM) 2.17 L Hgb (12.0 - 16.0 G/DL) 6.5 *L Hct (37 - 47 %) 20.7 L MCV (81.0 - 99.0 FL) 95.4 MCH (27.0 - 31.0 PG) 29.8 MCHC (33.0 - 37.0 G/DL) 31.3 L RDW (11.5 - 14.5 %) 29.9 H Plt Count (130 - 400 /CUMM) 194 MPV (7.4 - 10.4 FL) 7.9 Gran % (42.2 - 75.2 %) 15.1 L Lymphocytes % (20.5 - 51.1 %) 72.8 H Monocytes % (1.7 - 9.3 %) 11.8 H Eosinophils % (0 - 5 %) 0.3 Basophils % (0.0 - 2.0 %) 0 Absolute Granulocytes (1.4 - 6.5 /CUMM) 0.2 L Absolute Lymphocytes (1.2 - 3.4 /CUMM) 0.8 L Absolute Monocytes (0.10 - 0.60 /CUMM) 0.1 Absolute Eosinophils (0.0 - 0.7 /CUMM) 0 Absolute Basophils (0.0 - 0.2 /CUMM) 0 Urines Urinalysis HEAVY H Urine Color (YEL,AMB,STR) YEL Urine Clarity (CLEAR) HAZY H Urine pH (5.0 - 8.0) 7.0 Ur Specific [place] (1.001 - 1.035) 1.020 Urine Protein (NEG,<30 MG/DL) TRACE H Urine Ketones (NEG) NEG Urine Nitrite (NEG) POS H Urine Bilirubin (NEG) NEG Urine Urobilinogen (0.1 - 1.0 EU/dl) 0.2 Ur Leukocyte Esterase (NEG) MOD H Ur Microscopic SEDIMENT EXAMINED Urine RBC (0 - 5 /HPF) 1-3 Urine WBC (0 - 2 /HPF) 5-10 H Ur Epithelial Cells (NONE,FEW) MANY H Urine Bacteria (NEG/NONE) MANY H Urine Hemoglobin (NEG) TRACE-INTACT Urine Glucose (N MG/DL) NEG Imaging/Other Studies: X-ray left shoulder 12/24/2017: 1. Diffuse osteopenia. No acute fracture. 2. Mild degenerative changes in the glenohumeral and acromioclavicular joints. 3. Suspect underlying chronic rotator cuff disease. Clinical correlation requested. 4. Old healed fracture deformities of the left lateral ribs. 5. Chronic interstitial changes in the left lung. CXR 12/24/2017: Bibasilar airspace disease, increased from prior exam. Chronic lateral left rib fractures again identified. Assessment/Plan Assessment: Ms. 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 She has significant pain in the left shoulder and back since last Saturday. On presentation, she had a WBC of 1200, hemoglobin of 6.5, and hematocrit of 20.7. Chest x-ray and shoulder x-ray demonstrated no acute process. She does have osteopenia and old left lateral ribs fracture. There is mild degenerative changes in the glenohumeral and acromioclavicular joints. She received 2 units of pRBC and hemoglobin improved to 8.9 with hematocrit [place] 27[place] [address]. She feels over all better and at baseline. She remains on 4L NC for unclear reason. She should be tapered down to her baseline. Recommendations: MDS with anemia: -goal hematocrit of >25% -follow up as outpatient with Dr. Thompson COPD with hypoxia: -taper down oxygen to baseline (2L at night) -limit excessive oxygen SLE: -continue prednisone 10 mg daily Problem List: 1. Shoulder pain, acute 2. Back pain, acute 3. Anemia 4. MDS (myelodysplastic syndrome) 5. Hypoxia 6. Chronic anemia 7. COPD (chronic obstructive pulmonary disease) Other Findings/Comments: Please call [phone] with any questions or concerns. Consult Acknowledgment - Thank you for your consult request.
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
[2017-12-25 08:26] LABS: ABSOLUTE BASOPHIL COUNT 0 /CUMM (0.0-0.2); ABSOLUTE EOSINOPHIL COUNT 0 /CUMM (0.0-0.7); ABSOLUTE GRANULOCYTE CT 0.4 /CUMM (1.4-6.5); ABSOLUTE LYMPH COUNT 0.7 /CUMM (1.2-3.4); ABSOLUTE MONOCYTE COUNT 0.2 /CUMM (0.10-0.60); BASOPHIL % 0 % (0.0-2.0); EOSINOPHIL % 0 % (0-5); HEMATOCRIT 27.1 % (37-47); MEAN CORPUSCULAR HGB 28.2 PG (27.0-31.0); MEAN CORPUSCULAR HGB CONC 31.8 G/DL (33.0-37.0); MEAN CORPUSCULAR VOLUME 88.5 FL (81.0-99.0); MEAN PLATELET VOLUME 8.3 FL (7.4-10.4); PLATELET COUNT 129 /CUMM (130-400); RBC DISTRIBUTION WIDTH 28.3 % (11.5-14.5); RED BLOOD CELL CT 3.06 /CUMM (4.20-5.40)
[2017-12-25 10:09] LABS: WHITE BLOOD CELL COUNT 1.3 /CUMM (4.8-10.8)
--- NOTE | 2017-12-25 12:09 | PN- Att Addend ---
Attending Addendum Attending Brief Note Patient seen and examined, says that her shoulder pain is better. She was still complaining of mild back pain but tolerable. Vital Signs Date Time Temp Pulse Resp B/P B/P Pulse O2 O2 Flow FiO2 Mean Ox Delivery Rate 12/25 0649 99.1 58 20 140/60 98 Nasal 4.0L Cannula 12/25 0000 Nasal 4.0L Cannula 12/24 2234 99.0 69 18 130/80 94 Nasal Cannula 12/24 1641 99.2 87 18 146/70 94 Nasal 4.0L Cannula 12/24 1630 94 Nasal 4.0L Cannula 12/24 1428 78 17 174/80 100 Room Air 12/24 1250 98.1 93 18 181/72 91 12/24 1218 97.8 72 21 152/64 95 Nasal 3.0L Cannula on exam; aox3, nad. cv; s1, s2, rrr resp: clear bs with overll decreased bs at bases. abd; soft, nt, bs+ ext; no edema Laboratory Tests 12/25 0639 Chemistry Sodium (137 - 145 mmol/L) 135 L Potassium (3.5 - 5.1 mmol/L) 4.1 Chloride (98 - 107 mmol/L) 98 Carbon Dioxide (22 - 30 mmol/L) 28 Anion Gap (5 - 16) 9 BUN (7 - 17 mg/dL) 18 H Creatinine (0.5 - 1.0 mg/dL) 0.6 Estimated GFR (>60 ml/min) > 60 BUN/Creatinine Ratio (7 - 25 %) 30.0 H Hematology CBC w Diff MAN DIFF ORDERED WBC (4.8 - 10.8 /CUMM) 1.3 *L RBC (4.20 - 5.40 /CUMM) 3.06 L Hgb (12.0 - 16.0 G/DL) 8.6 L Hct (37 - 47 %) 27.1 L MCV (81.0 - 99.0 FL) 88.5 MCH (27.0 - 31.0 PG) 28.2 MCHC (33.0 - 37.0 G/DL) 31.8 L RDW (11.5 - 14.5 %) 28.3 H Plt Count (130 - 400 /CUMM) 129 L MPV (7.4 - 10.4 FL) 8.3 Gran % (42.2 - 75.2 %) 30.0 L Lymphocytes % (20.5 - 51.1 %) 54.7 H Monocytes % (1.7 - 9.3 %) 15.3 H Eosinophils % (0 - 5 %) 0 Basophils % (0.0 - 2.0 %) 0 Absolute Granulocytes (1.4 - 6.5 /CUMM) 0.4 L Absolute Lymphocytes (1.2 - 3.4 /CUMM) 0.7 L Absolute Monocytes (0.10 - 0.60 /CUMM) 0.2 Absolute Eosinophils (0.0 - 0.7 /CUMM) 0 Absolute Basophils (0.0 - 0.2 /CUMM) 0 Platelet Estimate (ADEQUATE) DECREASED Anisocytosis 1+ A/P; 87 y/o F with PMh sig for ch resp failure, COPD w/ 2L nocturnal O2, HLD, HTN, Myelodysplasia w/ injection of Darbipoient every other week , lupus on hydroxychloroquine 200mg daily and prednisone 10, GERD, [facility]. She was also found to be hypoxic, Acute drop in H&H on top of chronic anemia from Myelodysplatic syndrome. Drop in H&H is also secondary to Myelodysplastic syndrome. Patient remains hypoxic. Yesterday chest x-ray did not show any evidence of fluid overload. Her H&H has improved posttransfusion. She remains leukopenic and neutropenic. We'll discuss with hematology if she needs any colony boosting agents such as Neupogen. Will obtain a chest CTA to rule out pulmonary embolism. Patient will be seen by physical therapy and outpatient therapy. Continue the rest of the management. I have resumed her Nitro-Bid which she takes every day. DVT px; Hep sq. Pt on scheduled tylenol and prn oxycodone for pain Mx. Discussed with her daughter over the phone.
--- NOTE | 2017-12-25 12:11 | CT SCAN REPORT ---
EXAMINATION: CT CHEST PE STUDY CLINICAL INFORMATION: Increasing oxygen requirement. Presumptive diagnosis of PE. Wells score greater than 6. COMPARISON: Chest x-ray dated 12/24/2017. CT scan of the chest, abdomen and pelvis dated 10/14/2017 and 07/30/2017. CTA of the chest dated 07/31/2017. TECHNIQUE: Prior to contrast administration, localization images were obtained. After the administration of 95 mL of intravenous Optiray 320, multidetector CT volume acquisition of the chest was performed. 2-D postprocessing was performed with multiplanar reconstructions and MIP images obtained at the acquisition workstation under concurrent physician supervision. DLP: 241.15 mGy-cm. FINDINGS: Please note, approximately 15 mL of the initial Optiray 320 contrast bolus extravasated into the left wrist, resulting in a soft palpable lump in the left wrist and mild tenderness. No compromise to the perfusion of the left hand was noted and patient denied dysesthesias in the left hand and fingers. An ice pack was applied to the site of contrast extravasation and the patient was educated about the occurrence and instructed to inform her nurse if she feels any changes to the site or numbness or tingling in the left hand. Pulmonary arteries: The bolus timing on this study was acceptable for visualization of the pulmonary arterial tree. There are no intraluminal pulmonary arterial filling defects present to suggest pulmonary embolism in the main pulmonary artery, right and left main pulmonary artery, lobar and segmental branches. Lungs: There is moderate centrilobular emphysema and mild paraseptal emphysema with patchy areas of air trapping seen throughout the lungs. Biapical pleural-based reticular nodular opacities are seen, consistent with scarring. Scattered subpleural regions of reticular nodular opacities are seen, most likely related to scarring and atelectasis. There is volume loss and dependent atelectatic change versus consolidation in both lower lobes, right more than left with subtle air bronchograms seen. Trace bilateral pleural effusions are seen. Aorta and heart: The heart is normal in size. No evidence of right heart strain is seen on imaging. Slight ectasia of the aorta is seen with moderate soft and hard plaque seen. Mild coronary artery calcifications and moderate bilateral renal artery calcifications also seen. There is no pericardial effusion Lymphatic structures: There is no lymphadenopathy. Upper abdomen: Limited evaluation of the upper abdominal viscera demonstrates no focal abnormality. Bones: There are multiple bilateral old and subacute healing fractures of the ribs. Several of the subacute right rib fractures are fractured in 2 places. These right-sided rib fractures are new compared to 10/14/2017. Some of the left rib fractures are ununited with deformity of the rib cage seen. There is diffuse osteopenia. There is a moderate T7 compression deformity, new when compared to 10/14/2017. No suspicious focal findings. IMPRESSION: 1. No evidence of pulmonary embolism. 2. Moderate emphysema with multifocal areas of subpleural scarring/atelectasis and with dependent opacity in both lower lobes, possibly due to atelectatic change versus consolidation. 3. Trace bilateral pleural effusions. 4. Ectatic aorta with moderate atherosclerotic changes, which also involve the branch vessels, including the coronary arteries and renal arteries. 5. T7 compression deformity compared to 10/14/2017. Multiple bilateral rib fractures are seen, old on the left side and subacute on the right side, new from 10/14/2017. 6. Of note, approximately 15 mL of intravenous Optiray 320 infiltrated into the patient's left wrist without immediate untoward effect. Close clinical monitoring is recommended with low threshold for vascular consult should the clinical need arise. VTE: Negative.
[2017-12-25 14:37] VITALS: BP 135/70
[2017-12-25 22:39] VITALS: BP 130/60
[2017-12-26 06:55] VITALS: BP 142/60
--- NOTE | 2017-12-26 07:39 | PN- Hematology ---
Subjective Subjective: She denies any new pain this morning. She has no fever or chills. Her breathing is about the same. She did get CTA for new oxgyen requirement with IV infiltration. Her left wrist is swollen this morning but not painful. Review of Systems Constitutional: Denies: chills, fever. Cardiovascular: Denies: chest pain. Respiratory: Reports: short of breath (stable). Gastrointestinal: Denies: abdominal pain. Genitourinary: Denies: dysuria. Musculoskeletal: Reports: back pain, joint pain (shoulders), joint swelling (left wrist). Hematologic/Endocrine: Reports: bruising. All Other Systems: Reviewed and Negative Objective Vital Signs and I&Os Vital Signs Date Time Temp Pulse Resp B/P B/P Pulse O2 O2 Flow FiO2 Mean Ox Delivery Rate 12/26 0655 98.2 67 20 142/60 93 Room Air 12/26 0000 Nasal 2.0L Cannula 12/25 2239 97.9 63 22 130/60 97 Nasal Cannula 12/25 2001 95 Nasal 2.0L Cannula 12/25 1600 Nasal 2.0L Cannula 12/25 1437 98.5 61 21 135/70 96 Nasal Cannula 12/25 1350 Nasal 1.0L Cannula 12/25 0800 97 Nasal 2.0L Cannula Intake & Output 12/26 0800 12/26 0000 12/25 1600 12/25 0800 12/25 0000 12/24 1600 Intake Total 100 120 Output Total 300 Balance 100 -180 Intake, Oral 100 120 Output, Urine 300 Patient 48.223 kg 40.823 kg Weight Weight Bed scale Reported by Patient Measurement Method Physical Exam: General Appearance: well developed/nourished, no apparent distress, alert, awake , comfortable, thin Head: atraumatic, normal appearance Eyes: Bilateral: PERRL, EOMI. Ears, Nose, Throat: normal pharynx Respiratory: chest non-tender, no respiratory distress, quiet respiration Cardiovascular: regular rate/rhythm Gastrointestinal: normal bowel sounds, soft, non-tender Extremities: edema in left wrist, non-tender Neurologic/Psych: awake, alert, oriented x 3 Skin: hyperpigmented lower extremity, multiple ecchymoses in her upper extremity , edema in the left wrist with ecchymoses Current Medications: Current Medications Sig/Zeb Start time Last Medication Dose Route Stop Time Status Admin Acetaminophen 650 MG Q6 12/24 1200 AC 12/26 PO 0620 Albuterol Sulfate 3 ML Q4P PRN 12/25 1400 AC INH Atorvastatin Calcium 20 MG 1700 12/24 1700 AC 12/25 PO 1852 Cholecalciferol 2,000 IU DAILY 12/24 1133 AC 12/25 PO 0856 Heparin Sodium 5,000 UNIT Q8 12/24 1425 AC 12/26 (Porcine) SC 0621 Hydroxychloroquine 200 MG DAILY 12/24 1133 AC 12/25 Sulfate PO 0857 Morphine Sulfate 2 MG ONCE ONE 12/25 1000 CAN IV 12/25 1001 Multivitamins 1 TAB DAILY 12/24 1129 AC 12/25 PO 0857 Nitroglycerin 1 GM .STK-MED ONE 12/25 1221 DC TOP 12/25 1222 Nitroglycerin 0.5 GM Q6H 12/25 1215 AC 12/26 TOP 0621 Omeprazole 20 MG DAILY AC 12/24 1145 AC 12/26 PO 0620 Oxycodone HCl 5 MG Q6P PRN 12/24 1200 AC 12/25 PO 2219 Prednisone 5 MG BID 12/24 1134 AC 12/25 PO 2032 Results Last 24 Hours of Lab Results: Laboratory Tests 12/26 0638 Hematology CBC w Diff Pending WBC Pending RBC Pending Hgb Pending Hct Pending MCV Pending MCH Pending MCHC Pending RDW Pending Plt Count Pending MPV Pending Recent Imaging Studies: CTA chest 12/25/2017: 1. No evidence of pulmonary embolism. 2. Moderate emphysema with multifocal areas of subpleural scarring/atelectasis and with dependent opacity in both lower lobes, possibly due to atelectatic change versus consolidation. 3. Trace bilateral pleural effusions. 4. Ectatic aorta with moderate atherosclerotic changes, which also involve the branch vessels, including the coronary arteries and renal arteries. 5. T7 compression deformity compared to 10/14/2017. Multiple bilateral rib fractures are seen, old on the left side and subacute on the right side, new from 10/14/2017. 6. Of note, approximately 15 mL of intravenous Optiray 320 infiltrated into the patient's left wrist without immediate untoward effect. Close clinical monitoring is recommended with low threshold for vascular consult should the clinical need arise. Assessment/Plan Hematology Assessment/Recommendations: Ms. 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 She has significant pain in the left shoulder and back since last Saturday. On presentation, she had a WBC of 1200, hemoglobin of 6.5, and hematocrit of 20.7. Chest x-ray and shoulder x-ray demonstrated no acute process. She does have osteopenia and old left lateral ribs fracture. There is mild degenerative changes in the glenohumeral and acromioclavicular joints. She received 2 units of pRBC and hemoglobin improved to 8.9 with hematocrit [place] 27[place] [address]. She continues to feel about the same and at baseline. Oxygen requirement is down to 2L NC. She has no PE on CTA. She did have IV infiltration with contrast. She should have this area monitored closedly. Her counts are at baseline. MDS with anemia and leukopenia: -goal hematocrit of >25% -no need for G-CSF -follow up as outpatient with Dr. Thompson COPD with hypoxia: -limit excessive oxygen supplementation -continue baseline oxygen supplementation SLE: -continue prednisone 10 mg daily Please call [phone] with any questions or concerns. Problem List: 1. Hypoxia 2. Shoulder pain, acute 3. Anemia 4. MDS (myelodysplastic syndrome)
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
[2017-12-26 08:37] LABS: ABSOLUTE BASOPHIL COUNT 0 /CUMM (0.0-0.2); ABSOLUTE EOSINOPHIL COUNT 0 /CUMM (0.0-0.7); ABSOLUTE GRANULOCYTE CT 0.1 /CUMM (1.4-6.5); ABSOLUTE LYMPH COUNT 1.2 /CUMM (1.2-3.4); ABSOLUTE MONOCYTE COUNT 0.1 /CUMM (0.10-0.60); BASOPHIL % 0 % (0.0-2.0); EOSINOPHIL % 0.1 % (0-5); HEMATOCRIT 27.7 % (37-47); MEAN CORPUSCULAR HGB 28.1 PG (27.0-31.0); MEAN CORPUSCULAR HGB CONC 31.4 G/DL (33.0-37.0); MEAN CORPUSCULAR VOLUME 89.3 FL (81.0-99.0); MEAN PLATELET VOLUME 8.3 FL (7.4-10.4); PLATELET COUNT 135 /CUMM (130-400); RBC DISTRIBUTION WIDTH 28.7 % (11.5-14.5)
--- NOTE | 2017-12-26 08:46 | Patient Discharge Instructions ---
Discharge Instructions General Discharge Information You were seen/treated for: ANEMIA HYPOXIA SHOULDER AND BACK PAIN Special Instructions: 1. PLEASE FOLLOW UP WITH YOUR PCP IN ONE WEEK 2. PLEASE FOLLOW UP WITH DR. CRUZ IN ONE WEEK Diet Continue normal diet: Yes Activity Full Activity/No Limits: Yes ( TOLERATED) Acute Coronary Syndrome Inclusion Criteria At DC or during hospital stay patient has or had the following: ACS DIAGNOSIS No Discharge Core Measures Meds if any: Prescribed or Continued at Discharge Meds if any: NOT Prescribed or Continued at Discharge Congestive Heart Failure Inclusion Criteria At DC or during hospital stay patient has or had the following: CHF DIAGNOSIS No Discharge Core Measures Meds if any: Prescribed or Continued at Discharge Meds if any: NOT Prescribed or Continued at Discharge Cerebrovascular accident Inclusion Criteria At DC or during hospital stay patient has or had the following: CVA/TIA Diagnosis No Discharge Core Measures Meds if any: Prescribed or Continued at Discharge Meds if any: NOT Prescribed or Continued at Discharge Venous thromboembolism Inclusion Criteria VTE Diagnosis No VTE Type NONE VTE Confirmed by (Test) NONE Discharge Core Measures - Per Current guidelines, there needs to be overlap - treatment for the first 5 days of Warfarin therapy. - If discharged on Warfarin prior to 5 days of - overlap therapy, the patient will need to be - assessed for post discharge needs including - *Post discharge parental anticoagulation - *Warfarin and/or parental anticoagulation education - *Follow up date to check INR post discharge At least 5 days overlap therapy as Inpatient No Meds if any: Prescribed or Continued at Discharge Note: Overlap Therapy is Warfarin and Anticoagulant Meds if any: NOT Prescribed or Continued at Discharge
[2017-12-26 08:56] LABS: GRANULOCYTE % 8.5 % (42.2-75.2)
[2017-12-26 08:58] LABS: WHITE BLOOD CELL COUNT 1.4 /CUMM (4.8-10.8)
[2017-12-26] MEDS ORDERED: ALBUTEROL2.5 MG/3 M INH (09:04)
[2017-12-26] MEDS ORDERED: OXYCODONE HCL5 M1 PO (09:04)
--- NOTE | 2017-12-26 11:34 | PN- Att Addend ---
Attending Addendum Attending Brief Note Patient seen and examined, continues to complain of back pain. Her chest CT was negative for any acute pulmonary embolism but it did show T7 compression deformity as well as oild and subacute rib fractures. Vital Signs Date Time Temp Pulse Resp B/P B/P Pulse O2 O2 Flow FiO2 Mean Ox Delivery Rate 12/26 0800 94 Nasal 1.0L Cannula 12/26 0655 98.2 67 20 142/60 93 Room Air 12/26 0000 Nasal 2.0L Cannula 12/25 2239 97.9 63 22 130/60 97 Nasal Cannula 12/25 2001 95 Nasal 2.0L Cannula 12/25 1600 Nasal 2.0L Cannula 12/25 1437 98.5 61 21 135/70 96 Nasal Cannula 12/25 1350 Nasal 1.0L Cannula on exam; aox3, nad. cv; s1, s2, rrr resp: clear bs with overll decreased bs at bases. abd; soft, nt, bs+ ext; no edema ms: + point tenderness in mid upper back. Laboratory Tests 12/26 12/26 1025 0638 Chemistry Sodium Pending Potassium Pending Chloride Pending Carbon Dioxide Pending Anion Gap Pending BUN Pending Creatinine Pending BUN/Creatinine Ratio Pending Hematology CBC w Diff MAN DIFF ORDERED WBC (4.8 - 10.8 /CUMM) 1.4 *L RBC (4.20 - 5.40 /CUMM) 3.10 L Hgb (12.0 - 16.0 G/DL) 8.7 L Hct (37 - 47 %) 27.7 L MCV (81.0 - 99.0 FL) 89.3 MCH (27.0 - 31.0 PG) 28.1 MCHC (33.0 - 37.0 G/DL) 31.4 L RDW (11.5 - 14.5 %) 28.7 H Plt Count (130 - 400 /CUMM) 135 MPV (7.4 - 10.4 FL) 8.3 Gran % (42.2 - 75.2 %) 8.5 L Lymphocytes % (20.5 - 51.1 %) 85.8 H Monocytes % (1.7 - 9.3 %) 5.6 Eosinophils % (0 - 5 %) 0.1 Basophils % (0.0 - 2.0 %) 0 Absolute Granulocytes (1.4 - 6.5 /CUMM) 0.1 L Segmented Neutrophils (42.2 - 75.2 %) 20 L Absolute Lymphocytes (1.2 - 3.4 /CUMM) 1.2 Lymphocytes (20.5 - 51.1 %) 72 H Monocytes (1.7 - 9.3 %) 8 Absolute Monocytes (0.10 - 0.60 /CUMM) 0.1 Absolute Eosinophils (0.0 - 0.7 /CUMM) 0 Absolute Basophils (0.0 - 0.2 /CUMM) 0 Platelet Estimate (ADEQUATE) VERIFIED BY SMEAR Normocytic RBCs VERIFIED Normochromic RBCs VERIFIED A/P; 87 y/o F with PMh sig for ch resp failure, COPD w/ 2L nocturnal O2, HLD, HTN, Myelodysplasia w/ injection of Darbipoient every other week , lupus on hydroxychloroquine 200mg daily and prednisone 10, GERD, DJD admitted with left shoulder pain/back pain likley 2/2 to [facility]. She was also found to be hypoxic, Acute drop in H&H on top of chronic anemia from Myelodysplatic syndrome. Drop in H&H is also secondary to Myelodysplastic syndrome. CT negative for acute pulmonary embolism but did show T7 compression deformity as well as subacute and old rib fractures. Will obtain orthopedic consult to see if she would benefit from getting a chest brace. Her H&H has been stable. As discussed yesterday with hematology, no need to give G-CSF. Continue standing Tylenol, as needed oxycodone. We will also add Lidoderm patch. We did start the patient on nitro ointment yesterday after I discussed with patient's daughter. Continue the rest of the management. PT cleared her for home. After she is seen by ortho and if they recommend a brace, will arrange for one. DVt px; hep sq. Discharge planning.
[2017-12-26] MEDS ORDERED: NITRO-BID1 GM TOP ×2 (14:25→14:27)
[2017-12-26 14:50] VITALS: BP 120/60
--- NOTE | 2017-12-26 18:24 | PN- Orthopedic ---
Surgical Brief Attending Note Brief Attending Note: Reason for consult: I was asked to evaluate this 87-year-old female for a thoracic vertebral body compression fracture with respect to treatment recommendations and more specifically whether or not she would benefit from a brace. History: The patient appears to be a somewhat poor historian and does not recall having sustained any specific trip and fall. That being said, she clearly has had injuries as she does have bilateral multiple rib fractures in varying stages of acuity and healing. The patient does complain of some upper back pain. During her hospitalization at [facility] she did undergo a CAT scan of the spine. This was compared to multiple prior CAT scans that she has in the system and a "fresh" T7 vertebral body compression fracture was identified on this CAT scan which was not identified on prior CAT scan I believe of Oct, 2017. The patient presently complains of only mild upper back pain. She states that this is generally tolerable. She does notice this as she tries to transition to get up and walk. Once up walking she is fine denying any pain. She also denies pain at rest. She denies pain felt with moving around in bed. She denies numbness or tingling today in any of the extremities. Examination: On clinical examination the patient is a pleasant, cooperative, well-nourished and well-developed thin generally frail-appearing elderly white female looking her reported age. She is sitting comfortably semiupright in bed. Vital signs are stable and she is afebrile. Both upper extremities show multiple areas of ecchymosis and several areas of minor skin breakdown. The patient is able to sit up easily without complaints of pain. She does have some increased thoracic kyphosis in the sagittal plane appreciated on visual inspection. No gross coronal plane deformity appreciated and her shoulders are reasonably level and her head is held slightly anterior to the plumbline. The back itself shows no swelling, ecchymosis, erythema, or muscle atrophy. The skin about the back is intact and in good condition. No tenderness to palpation about the upper back or about the bilateral shoulder girdles. There is mild to moderate discomfort on thumping along the mid to lower thoracic spine at the midline. No real discomfort on thumping anywhere else about the back. The patient moves quite easily in bed without complaints of pain. This includes left and right lateral bending and forward flexion and extension again all without complaints of pain. She demonstrates active motion of the bilateral lower extremities. Motor and sensory function to the bilateral lower extremities appears to be grossly intact. Imaging: Review of the CAT scan of the patient's thoracic spine does show a T7 vertebral compression fracture with loss of about 50% of the anterior vertebral body height.This does correlate with some mild focal segmental thoracic kyphosis across this vertebral body level. The vertebral body heights are otherwise well maintained. There are some degenerative changes noted at the disc space levels. There is scoliotic curvature, presumably somewhat degenerative appreciated. Assessment: 87-year-old female with seemingly relatively acute T7 anterior vertebral body compression fracture with minor wedging and some focally increased segmental thoracic kyphosis but with relatively benign exam and with reported only minor symptoms at the level of the thoracic spine. Plan: Management options were discussed with the patient at length. We did discuss doing nothing at all which is probably the best answer. Answer for the patient as her symptoms are relatively mild including discomfort only felt with initial mobilization out of bed but not at rest or rolling or moving in bed. We did discuss bracing for the vertebral body compression fracture. I did indicate to the patient that I suspected that she would not tolerate this due to pressure by the brace on the rib fractures the chest wall likely increasing discomfort associated with her bilateral multiple rib fractures. I did also indicate to the patient that I doubted that she would wish to continue to wear the brace given that her symptoms are relatively minor overall. Lastly, we did discuss whether or not they would be any benefit to have her undergo cement augmentation by the interventional radiology department for her vertebral compression fracture. I did indicate to the patient that since her symptoms do seem to be well tolerated and overall relatively mild that I did not believe that cement augmentation benefits would be worth the risks. The patient from my standpoint could be mobilized out of bed with physical therapy as tolerated. She does not require further orthopedic monitoring or supervision or follow-up. In the event that she does feel that she needs to be seen again for orthopedic follow-up she can certainly contact my office and I would be happy to see her.
[2017-12-26 22:13] VITALS: BP 124/70
[2017-12-27 06:07] VITALS: BP 168/60
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
--- NOTE | 2017-12-27 07:33 | PN- Hematology ---
Subjective Subjective: She feels well. She does not left arm pain. She has a new swelling in the left arm. She has no fever or chills. Review of Systems Constitutional: Denies: chills, fever. Cardiovascular: Denies: chest pain. Gastrointestinal: Denies: abdominal pain. Genitourinary: Denies: dysuria. Musculoskeletal: Reports: back pain, joint pain, joint swelling, muscle pain. Hematologic/Endocrine: Reports: bruising. Denies: bleeding. All Other Systems: Reviewed and Negative Objective Vital Signs and I&Os Vital Signs Date Time Temp Pulse Resp B/P B/P Pulse O2 O2 Flow FiO2 Mean Ox Delivery Rate 12/27 0607 97.7 62 18 168/60 95 Nasal 2.0L Cannula 12/27 0000 Nasal 2.0L Cannula 12/26 2213 97.8 68 20 124/70 96 12/26 1950 96 Nasal 2.0L Cannula 12/26 1600 93 Nasal 2.0L Cannula 12/26 1450 98.0 63 20 120/60 92 12/26 1312 95 Nasal 2.0L Cannula 12/26 0800 94 Nasal 1.0L Cannula Intake & Output 12/27 0800 12/27 0000 12/26 1600 12/26 0800 12/26 0000 12/25 1600 Intake Total 120 480 850 100 100 Output Total 202 Balance 120 278 850 100 100 Intake, IV 10 Intake, Oral 120 480 840 100 100 Number 1 Bowel Movements Output, Stool 2 Output, Urine 200 Patient 48.534 kg 48.563 kg Weight Weight Bed scale Bed scale Measurement Method Physical Exam: General Appearance: well developed/nourished, no apparent distress, alert, awake , comfortable, thin Head: atraumatic, normal appearance Eyes: Bilateral: PERRL, EOMI. Ears, Nose, Throat: normal pharynx Respiratory: chest non-tender, no respiratory distress, quiet respiration Cardiovascular: regular rate/rhythm Gastrointestinal: normal bowel sounds, soft, non-tender Extremities: edema in left wrist, non-tender Neurologic/Psych: awake, alert, oriented x 3 Skin: hyperpigmented lower extremity, multiple ecchymoses in her upper extremity , edema in the left wrist with ecchymoses, firm mass on the left wrist (3 x 6 cm ) Current Medications: Current Medications Sig/Zeb Start time Last Medication Dose Route Stop Time Status Admin Acetaminophen 650 MG Q6 12/24 1200 AC 12/27 PO 0601 Albuterol Sulfate 3 ML Q4P PRN 12/25 1400 AC INH Atorvastatin Calcium 20 MG 1700 12/24 1700 AC 12/26 PO 1813 Cholecalciferol 2,000 IU DAILY 12/24 1133 AC 12/26 PO 0848 Heparin Sodium 5,000 UNIT Q8 12/24 1425 AC 12/27 (Porcine) SC 0600 Hydroxychloroquine 200 MG DAILY 12/24 1133 AC 12/26 Sulfate PO 0849 Lidocaine 1 PAT Q72 12/29 0900 AC TOP Multivitamins 1 TAB DAILY 12/24 1129 AC 12/26 PO 0849 Nitroglycerin 0.5 GM Q6 12/26 1200 AC 12/27 TOP 0600 Nitroglycerin 0.5 GM Q6H 12/25 1215 DC 12/26 TOP 0621 Omeprazole 20 MG DAILY AC 12/24 1145 AC 12/27 PO 0601 Oxycodone HCl 5 MG Q6P PRN 12/24 1200 AC 12/25 PO 2219 Patient Medication 1 ED ONE ONE 12/26 1800 AK 12/26 Teaching ED 12/26 1801 1855 Prednisone 5 MG BID 12/24 1134 AC 12/26 PO 2040 Results Last 24 Hours of Lab Results: Laboratory Tests 12/26 1025 Chemistry Sodium (137 - 145 mmol/L) 134 L Potassium (3.5 - 5.1 mmol/L) 5.0 Chloride (98 - 107 mmol/L) 97 L Carbon Dioxide (22 - 30 mmol/L) 28 Anion Gap (5 - 16) 9 BUN (7 - 17 mg/dL) 16 Creatinine (0.5 - 1.0 mg/dL) 0.9 Estimated GFR (>60 ml/min) 59 L BUN/Creatinine Ratio (7 - 25 %) 17.8 Assessment/Plan Hematology Assessment/Recommendations: Ms. 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 She has significant pain in the left shoulder and back since last Saturday. On presentation, she had a WBC of 1200, hemoglobin of 6.5, and hematocrit of 20.7. Chest x-ray and shoulder x-ray demonstrated no acute process. She does have osteopenia and old left lateral ribs fracture. There is mild degenerative changes in the glenohumeral and acromioclavicular joints. She received 2 units of pRBC and hemoglobin improved to 8.9 with hematocrit of 27.6. Her blood counts are stable. She is back to baseline. She has a new left wrist mass. This is likely related to the IV infiltration with contrast. This should be monitored closely. She may need drainage. Left arm mass: -monitor closely -may need US and drainage if worsening MDS with anemia and leukopenia: -goal hematocrit of >25% -no need for G-CSF -follow up as outpatient with Dr. Thompson COPD with hypoxia: -continue baseline oxygen supplementation SLE: -continue prednisone 10 mg daily Please call [phone] with any questions or concerns. Problem List: 1. MDS (myelodysplastic syndrome) 2. COPD (chronic obstructive pulmonary disease)
[2017-12-27] MEDS ORDERED: OXYCODONE HCL5 M1 PO (08:56)
[2017-12-27] MEDS ORDERED: LIDODERM1 EACH TOP (08:56)
[2017-12-27] MEDS ORDERED: TYLENOL EXTRA500 M2 PO (09:02)
--- NOTE | 2017-12-27 10:00 | PN- Att Addend ---
See Addendum Attending Addendum Attending Brief Note Patient seen and examined, overall doing better. Her pain is better controlled with the Lidoderm patch. Patient also getting Tylenol and oxycodone. Appreciate orthopedic input. Vital Signs Date Time Temp Pulse Resp B/P B/P Pulse O2 O2 Flow FiO2 Mean Ox Delivery Rate 12/27 0800 Nasal 2.0L Cannula 12/27 0607 97.7 62 18 168/60 95 Nasal 2.0L Cannula 12/27 0000 Nasal 2.0L Cannula 12/26 2213 97.8 68 20 124/70 96 12/26 1950 96 Nasal 2.0L Cannula 12/26 1600 93 Nasal 2.0L Cannula 12/26 1450 98.0 63 20 120/60 92 12/26 1312 95 Nasal 2.0L Cannula on exam; aox3, nad. cv; s1, s2, rrr resp; clear but decreased bs at bases. abd soft, nt, bs+ ext; no edema skin: swollen area left [facility] due to infiltrated IV. Laboratory Tests 12/26 1025 Chemistry Sodium (137 - 145 mmol/L) 134 L Potassium (3.5 - 5.1 mmol/L) 5.0 Chloride (98 - 107 mmol/L) 97 L Carbon Dioxide (22 - 30 mmol/L) 28 Anion Gap (5 - 16) 9 BUN (7 - 17 mg/dL) 16 Creatinine (0.5 - 1.0 mg/dL) 0.9 Estimated GFR (>60 ml/min) 59 L BUN/Creatinine Ratio (7 - 25 %) 17.8 A/P: 87 y/o F with PMh sig for ch resp failure, COPD w/ 2L nocturnal O2, HLD, HTN, Myelodysplasia w/ injection of Darbipoient every other week , lupus on hydroxychloroquine 200mg daily and prednisone 10, GERD, DJD admitted with left shoulder pain/back pain likley 2/2 to [facility]. She was also found to be hypoxic, Acute drop in H&H on top of chronic anemia from Myelodysplatic syndrome. Drop in H&H is also secondary to Myelodysplastic syndrome. Her H&H has remained stable after the transfusion. She does have chronic leukopenia from her MDS and as per hematology there is no need for G-CSF. Appreciate orthopedic input. Patient will likely not benefit from base or cement augmentation per orthopedic. At this point it will be the pain management and physical therapy. She is otherwise medically stable for discharge home today. Will give her the prescription for Lidoderm patch as well as oxycodone. I called patient's daughter and she is requesting also the prescription for prednisone as patient is running out of it. She is otherwise medically stable for discharge home today with visiting nurses and home physical therapy. She should follow-up with her primary care doctor and Dr. Thompson as an outpatient. Patient encouraged to just be cautious when she moves, turns or bends. She is already on vitamin D. D/W daughter over the phone.
[2017-12-27] MEDS ORDERED: PREDNISONE5 M1 PO (11:01)
[2017-12-27 13:37] VITALS: BP 140/70
== END 2017-12-27 15:05 | disposition home health service (06) | DRG 811 ==
LOC: ERH 14:37 → ERHI 19:35 → 2NA 12-24 08:31 → ERHI 12-24 08:31 → EDBEDREQ 12-24 08:51 → EDBEDREQTM 12-24 08:51 → EDBEDREQDT 12-24 08:51 → ERHI 12-24 08:56 → ENRESERV 12-24 13:59 → ENTRNSPT 12-24 16:01 → 2NA 12-24 16:29 → CMPTRNSPT 12-24 16:34 → 2NA 12-25 07:47 → ENPENDDIS 12-27 10:00 → ENTRNSPT 12-27 15:03 → 2NA 12-27 15:05 → CMPTRNSPT 12-27 15:11
PROVIDERS: Hospitalist; Physician Assistant; Student in an Organized Health Care Education/Training Program
PROC: 30233N1 Transfusion of Nonautologous Red Blood Cells into Peripheral Vein, Percutaneous Approach (ICD-10-PCS; principal; 2017-12-23)
DX: D46.9 Myelodysplastic syndrome, unspecified (principal); J96.01 Acute respiratory failure with hypoxia; J96.10 Chronic respiratory failure, unspecified whether with hypoxia or hypercapnia; D63.8 Anemia in other chronic diseases classified elsewhere; I10 Essential (primary) hypertension; E78.5 Hyperlipidemia, unspecified; K21.9 Gastro-esophageal reflux disease without esophagitis; M32.9 Systemic lupus erythematosus, unspecified; M85.80 Other specified disorders of bone density and structure, unspecified site; Z99.81 Dependence on supplemental oxygen; E87.5 Hyperkalemia; M54.9 Dorsalgia, unspecified; M25.512 Pain in left shoulder; M19.90 Unspecified osteoarthritis, unspecified site; Z66 Do not resuscitate; J44.9 Chronic obstructive pulmonary disease, unspecified; R32 Unspecified urinary incontinence; Z79.52 Long term (current) use of systemic steroids; Z91.81 History of falling
CPT/HCPCS: 2NAP; 36592; 71045; 71046; 72080; 73030-LT; 81001; 82436; 86920; 87086; 93005; 93010; 96365; 96366; 96375; 97112-GO; 97116-GO; 97161-GP; 97530-GO; J1644; J7512; P9016

== ENCOUNTER 2018-01-25 20:11 | Inpatient (IN) | payer OTHER, MEDICARE ==
[~2018-01-25] VITALS: Ht 152.4 cm; Wt 41.1 kg
[~2018-01-25 20:11] MED LIST changes: +ALBUTEROL2.5 MG/3 M INH; +LIDODERM1 EACH TOP; +OXYCODONE HCL5 M1 PO; +POTASSIUM CHLO10 ME5 PO
[2018-01-25 22:43] LABS: ABSOLUTE BASOPHIL COUNT 0 /CUMM (0.0-0.2); ABSOLUTE EOSINOPHIL COUNT 0 /CUMM (0.0-0.7); ABSOLUTE GRANULOCYTE CT 1.4 /CUMM (1.4-6.5); ABSOLUTE LYMPH COUNT 1.7 /CUMM (1.2-3.4); ABSOLUTE MONOCYTE COUNT 1.1 /CUMM (0.10-0.60); BASOPHIL % 0.3 % (0.0-2.0); EOSINOPHIL % 0 % (0-5); HEMATOCRIT 29.3 % (37-47); MEAN CORPUSCULAR HGB 29.5 PG (27.0-31.0); MEAN CORPUSCULAR VOLUME 92.1 FL (81.0-99.0); MEAN PLATELET VOLUME 8.2 FL (7.4-10.4); PLATELET COUNT 137 /CUMM (130-400); RBC DISTRIBUTION WIDTH 24.8 % (11.5-14.5); RED BLOOD CELL CT 3.18 /CUMM (4.20-5.40); WHITE BLOOD CELL COUNT 4.2 /CUMM (4.8-10.8)
[2018-01-25 22:54] LABS: PT 14.1 SEC (9.4-12.5); PTT 26 SEC (25-37)
--- NOTE | 2018-01-25 23:28 | ED GENERAL ADULT ---
History of Present Illness General Chief Complaint: Lower Extremity Problems Stated Complaint: "PAIN IN RT LEG" Source: patient, family Exam Limitations: no limitations Vital Signs & Intake/Output Vital Signs & Intake/Output Vital Signs Date Time Temp Pulse Resp B/P B/P Pulse O2 O2 Flow FiO2 Mean Ox Delivery Rate 01/26 0012 99.1 96 20 159/74 95 Nasal 2.0L Cannula 01/25 2018 98.0 102 20 173/62 90 Nasal 2.0L Cannula Allergies Coded Allergies: NO KNOWN ALLERGIES (NONE 12/24/17) Reconcile Medications Acetaminophen (Tylenol Extra Strength) 500 MG TABLET 1 TAB PO Q6 PRN PAIN Albuterol Sulfate 2.5 MG/3 ML (0.083 %) VIAL.NEB 3 ML INH Q4P PRN SHORTNESS OF BREATH Atorvastatin Calcium 20 MG TABLET 20 MG PO 1700 HLD Cholecalciferol (Vitamin D3) (Vitamin D3) 2,000 UNIT TABLET 1 TAB PO DAILY VITAMIN SUPPORT (Reported) Hydroxychloroquine Sulfate 200 MG TABLET 1 TAB PO DAILY LUPUS (Reported) Lidocaine (Lidoderm) 5 % ADH..PATCH 1 PAT TOP Q24 PRN PAIN PLEASE LEAVE ON 12 HOURS AND THEN TAKE OFF FOR 12 HOURS EVERY DAY FOR PAIN Nitroglycerin (Nitro-Bid) 2 % OINT...G. 0.5 GM TOP Q6 PRN CHEST PAIN ( Reported) Omeprazole Magnesium (Prilosec Otc) 20 MG TABLET.DR 1 20MG PO DAILY ACID REFLUX (Reported) Oxycodone HCl 5 MG TABLET 5 MG PO Q6P PRN PAIN SCALE 4-6 (MODERATE) Potassium Chloride 10 MEQ TAB.ER.PRT 2 TAB PO BID SUPPLEMENT (Reported) Prednisone 5 MG TABLET 1 TAB PO BID LUPUS Triage Note: PT TO TRIAGE C/O R LEG PAIN TO R THIGH AND GROIN THAT SHE WOKE UP WITH THIS MORNING. DENIES FALL/INJURY. PT BASELINE AMBULATES WITH WALKER, WAS UNABLE TO DO SO TODAY PER FAMILY. NO OBVIOUS DEFORMITY NOTED. THIGH COVERED WITH CLOTHING IN TRIAGE. +PEDAL PULSES. PER FAMILY PT TOOK TYLENOL AND 5MG OXYCODONE AT 5PM WITH NO EFFECT. PT BASELINE 2L NC SATTING 90%, PT DENIES ANY SHORTNESS OF BREATH Triage Nurses Notes Reviewed? yes Onset: Gradual Duration: hour(s): Timing: constant HPI: 87-year-old female with a history of hypertension, hyperlipidemia, COPD (on baseline 2 L supplemental oxygen), lupus, osteopenia (status post multiple pelvic fractures), anemia, myelodysplasia presenting with atraumatic right lower extremity pain since this morning. Patient states that the pain first started when she woke up this morning. States that the entire leg is painful from her lower leg up to her hip. There was no known trauma or falls. Denies numbness or paresthesias. Patient normally ambulates with a walker at baseline, but states that she has had progressively worsening difficulty with ambulation. Now is unable to ambulate at all. (Krystyna Botello) Past History Travel History Traveled to [facility] past 21 day No Medical History Any Pertinent Medical History? see below for history Neurological: NONE EENT: NONE Cardiovascular: hypertension, hyperlipidemia Respiratory: COPD Gastrointestinal: GERD (dependent on OTC Prilosec xyrs) Hepatic: NONE Renal: urinary incontinence Musculoskeletal: degen joint disease, falls, SLE Psychiatric: NONE Endocrine: osteopenia SLE Blood Disorders: anemia, MYELODYSPLASIA Cancer(s): NONE [employer] [place]/Reproductive: NONE History of MRSA: Yes History of VRE: No History of CDIFF: No Surgical History Surgical History: SKIN GRAFT RIGHT LEG POST FALL Psychosocial History Who do you live with Significant Other Services at Home None What is your primary language E[place]an Tobacco Use: Quit >30 days ago ETOH Use: denies use Family History Family History, If Any: FATHER (Hx "liver ca" (? if primary vs. met); non-cirrhotic.). , Age 60+ ; Cause: Postoperative complication. MOTHER, , Age 60+; Cause: Unknown cause of morbidity or mortality. SON, , Age 30-40; Cause: MVA (motor vehicle accident). Hx Contributory? No (Krystyna Botello) Review of Systems Review of Systems Constitutional: Reports: no symptoms. EENTM: Reports: no symptoms. Respiratory: Reports: no symptoms. Cardiovascular: Reports: no symptoms. GI: Reports: no symptoms. Genitourinary: Reports: no symptoms. Musculoskeletal: Reports: see HPI. Skin: Reports: no symptoms. Neurological/Psychological: Reports: no symptoms. Hematologic/Endocrine: Reports: no symptoms. Immunologic/Allergic: Reports: no symptoms. All Other Systems: Reviewed and Negative (Krystyna Botello) Physical Exam Physical Exam General Appearance: well developed/nourished, no apparent distress, alert, awake Comments: Gen.: Well-nourished, well-developed, no acute distress. Head: Normocephalic, atraumatic. Eyes: Normal inspection bilaterally Ears: Normal inspection bilaterally Nose: Normal inspection Neck: Normal inspection Lungs: Trace scattered wheezes Heart: regular rate and rhythm Abdomen: soft and non-tender Extremities: Right lower extremity Inspection: No erythema, edema, or increased warmth. Palpation: Tender to palpation over the right calf muscle and the right hip joint ROM: Unrestricted range of motion at the ankle joint, but unable to range the knee or hip joint Sensation: intact Motor strength: 0/5 motor strength in the right lower extremity, unable to lift her leg against gravity Pulse: Dorsalis pedis and posterior tibialis pulses not palpable on the right, but both were audible with Doppler Neurologic: alert and oriented x3, steady gait Skin: warm and dry Psychiatric: Normal mood and affect, no apparent delusions or hallucinations, behavior appropriate Core Measures ACS in differential dx? No CVA/TIA Diagnosis: No Sepsis Present: No Sepsis Focused Exam Completed? No (Cale BILLS,Krystyna) Progress Differential Diagnoses I considered the following diagnoses in my evaluation of the patient: [Fracture versus DVT versus lupus flare, low concern for arterial thrombus] Plan of Care: Orders Procedure Date/time Status Nothing by Mouth 01/26 B Active US-DUPLEX VENOUS EXTREM UNI 01/26 09 Active CBC WITHOUT DIFFERENTIAL 01/26 06 Active BASIC ELECTROLYTES PLUS BUN&CR 01/26 0600 Active Pathway - chart 01/26 143 Active House Staff 01/26 014 Active Patient Data 01/26 014 Active Code Status 01/26 014 Active TYPE & SCREEN (NOT X-MATCH) 01/26 014 Complete Patient Data 01/26 004 Active OXYGEN SETUP (GEN) 01/26 004 Active Saline Lock 01/26 004 Active Admit to inpatient 01/26 0043 Active Vital Signs 01/26 004 Active Activity/Ambulation 01/26 004 Active Code Status 01/26 0043 Complete VTE Mechanical Prophylaxis 01/26 UNK Active Vital Signs 01/26 UNK Active Activity/Ambulation 01/26 UNK Active Intake & Output 01/25 2304 Active PARTIAL THROMBOPLASTIN TIME 01/25 2220 Complete PROTHROMBIN TIME 01/25 2220 Complete HIGH SENSITIVITY CRP 08/18 2220 Complete WESTERGREN SED RATE 01/26 2220 Complete COMPREHENSIVE METABOLIC PANEL 01/26 2220 Complete CREATINE PHOSPHOKINASE 01/26 2220 Complete CBC WITHOUT DIFFERENTIAL 01/26 2220 Complete Current Medications Sig/Zeb Start time Last Medication Dose Stop Time Status Admin Atorvastatin Calcium 20 MG 1700 01/26 1700 UNVr (Lipitor) Heparin Sodium 5,000 UNIT Q8 01/26 1400 UNVr (Porcine) Hydroxychloroquine 200 MG DAILY 01/26 09 UNVr Sulfate (Plaquenil 200MG Tab) Prednisone 5 MG BID 01/26 09 UNVr Omeprazole 20 MG DAILY AC 01/26 0700 UNVr (Prilosec) Acetaminophen 650 MG Q6P PRN 01/26 014 UNVr (Tylenol) Acetaminophen 1,000 MG Q8P PRN 01/26 0145 UNVr 01/26 (Ofirmev) 0313 Albuterol Sulfate 3 ML Q4P PRN 01/26 0145 UNVr (Proventil) Hydromorphone HCl 0.5 MG Q4P PRN 01/26 0145 UNVr (Dilaudid) Oxycodone HCl 5 MG Q6P PRN 01/26 0145 UNVr (Roxicodone) Sodium Chloride 1,000 ML .[id number] 01/26 014 UNVr (Normal Saline 0.9%) 01/27 0424 Laboratory Tests 01/25/182234: Anion Gap 9, Estimated GFR > 60, BUN/Creatinine Ratio 38.6 H, Glucose 138 H, Calcium 8.8, Total Bilirubin 0.5, AST 30, ALT 23, Alkaline Phosphatase 160 H, Creatine Kinase 33, C-React Prot High Sens 7.3 H, Total Protein 8.6 H, Albumin 3.5, Globulin 5.1 H, Albumin/Globulin Ratio 0.7 L, PT 14.1 H, INR 1.29 H, APTT 26, CBC w Diff MAN DIFF ORDERED, RBC 3.18 L, MCV 92.1, MCH 29.5, MCHC 32.0 L, RDW 24.8 H, MPV 8.2, Gran % 34.0 L, Lymphocytes % 39.7, Monocytes % 26.0 H, Eosinophils % 0, Basophils % 0.3, Absolute Granulocytes 1.4, Segmented Neutrophils 23 L, Absolute Lymphocytes 1.7, Lymphocytes 49, Monocytes 28 H, Absolute Monocytes 1.1 H, Absolute Eosinophils 0, Absolute Basophils 0, Platelet Estimate VERIFIED BY SMEAR, Normochromic RBCs VERIFIED, Anisocytosis 2+ , ESR Westergren 44 H, Fld Total RBCs Counted 100 XR 1. Displaced fracture of the RIGHT femoral neck, cephalad migration of the femoral shaft. 2. Probably subacute fractures of both superior and inferior pubic rami. 3. Mild DJD of the knee. 4. Heavy vascular calcifications of the SFA. 5. Tibia and fibula are intact. Findings were discussed with the family and patient. Discussed with orthopedics and surgical PA. Patient will be admitted to general medicine. Patient should have inpatient ultrasound to evaluate for DVT as she had calf tenderness on exam. Initial ED EKG: none (Krystyna Botello) Departure Departure Disposition: STILL A PATIENT Condition: Stable Clinical Impression Primary Impression: Closed right hip fracture Referrals: Rio Combs MD (PCP/Family) Departure Forms: Customer Survey General Discharge Information Admission Note Spoke With: Damon Edwards MD Documentation of Exam: Documentation of any treatments & extenuating circumstances including Concerns Regarding Discharge (functional status, medication knowledge or non-compliance, living conditions, etc.) that warrant an admission rather than observation: [ Orthopedic consultation, pain control, case management consult, PT evaluation] (Krystyna Botello) PA/NURSING CONSULTANT Co-Sign Statement Statement: ED Attending supervision documentation- x I saw and evaluated the patient. I have also reviewed all the pertinent lab results and diagnostic results. I agree with the findings and the plan of care as documented in the PA's/NURSING CONSULTANT's documentation. RLE pain, unable to ambulate, no known trauma. XR with hip fx [] I have reviewed the ED Record and agree with the PA's/NURSING CONSULTANT's documentation. [] Additions or exceptions (if any) to the PAs/NURSING CONSULTANT's note and plan are summarized below: [] (Gracy PROCTOR,Octavio) Critical Care Note Critical Care Note Critical Care Time: 30-74 min (Krystyna Botello)
--- NOTE | 2018-01-26 00:02 | RADIOLOGY REPORT ---
EXAMINATION: Right hip, RIGHT femur, RIGHT tibia-fibula. CLINICAL INFORMATION: Fracture pain COMPARISON: October 2017 TECHNIQUE: Two views of the right hip, 2 views RIGHT femur, 2 views RIGHT tibia-fibula.. FINDINGS: There is a fracture of the RIGHT femoral neck, there is cephalad migration of the femur at the fracture site by approximately 3.5 cm. Femoral trochanters and intertrochanteric bone are intact. There are fractures of the adjacent pubic rami both the superior and inferior pubic ramus are fractured. This fracture might be old. There is periosteal reaction/bone remodeling and new bone formation. Femoral diaphysis and femoral condyles are intact. There are mild degenerative osteoarthritic changes of the knee evident by narrowing of medial and lateral joint spaces, Both tibia and fibula are intact. No fracture or dislocations. There are heavy vascular calcifications. IMPRESSION: 1. Displaced fracture of the RIGHT femoral neck, cephalad migration of the femoral shaft. 2. Probably subacute fractures of both superior and inferior pubic rami. 3. Mild DJD of the knee. 4. Heavy vascular calcifications of the SFA. 5. Tibia and fibula are intact. This critical result was discussed with Krystyna Madsen by telephone at 01/25/2018 11:53 PM and it was ascertained that the content and urgency of the report was understood at the time of direct communication.
--- NOTE | 2018-01-26 01:10 | History & Physical ---
Juanjo Garcia 01/26/18 0110: General Information and HPI MD Statement: I have seen and personally examined GRUPO HOANG and documented this H&P. 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 She presented with atraumatic right lower extremity pain since this morning. Patient states that the pain first started when she woke up this morning. States that the entire leg is painful from her lower leg up to her hip. There was no known trauma or falls. Denies numbness or paresthesias. Patient normally ambulates with a walker at baseline, but states that she has had progressively worsening difficulty with ambulation. Now she is unable to ambulate at all. She denies any fever, chills, chest pain, palpitations, short of breath, cough, nausea, vomiting, abdominal pain, change in bladder or bowel habits. She denies smoking, alcohol abuse, illicit drug abuse. She was admitted to [facility] in January 2018 for back pain and shoulder pain, she was found to have chronic rotator cuff injury. She was given 2 units of blood transfusion for acute on chronic anemia. She was treated for acute hypoxic respiratory failure secondary to pneumonia. Pulmonary embolism was ruled out. Allergies/Medications Allergies: Coded Allergies: NO KNOWN ALLERGIES (NONE 12/24/17) Compliance With Home Meds: GOOD Past History Travel History Traveled to [place] past 21 day No Medical History Neurological: NONE EENT: NONE Cardiovascular: hypertension, hyperlipidemia Respiratory: COPD Gastrointestinal: GERD (dependent on OTC Prilosec xyrs) Hepatic: NONE Renal: urinary incontinence Musculoskeletal: degen joint disease, falls, SLE Psychiatric: NONE Endocrine: osteopenia SLE Blood Disorders: anemia, MYELODYSPLASIA Cancer(s): NONE ENGINEERING SPECIALIST/Reproductive: NONE History of MRSA: Yes History of VRE: No History of CDIFF: No Surgical History Surgical History: SKIN GRAFT RIGHT LEG POST FALL Past Family/Social History Family History Relations & Conditions if any FATHER (Hx "liver ca" (? if primary vs. met); non-cirrhotic.). , Age 60+ ; Cause: Postoperative complication. MOTHER, , Age 60+; Cause: Unknown cause of morbidity or mortality. SON, , Age 30-40; Cause: MVA (motor vehicle accident). Psychosocial History Who Do You Live With? spouse (in law apt next to dtr), self Services at Home: None Primary Language: Frisian Smoking Status: Never Smoked ETOH Use: denies use Illicit Drug Use: denies illicit drug use Living Will? no Power of Control Systems Technician/HCP? no Functional Ability ADLs Independent: dressing, eating, toileting, bathing. Ambulation: cane IADLs Independent: shopping, housework, finances, food prep, telephone, transportation , medication admin. Review of Systems Review of Systems Constitutional: Denies: chills, diaphoresis, fever, malaise, weakness, unexplained weight loss. EENTM: Denies: blurred vision, double vision. Cardiovascular: Denies: chest pain, edema, orthopena, palpitations, peripheral edema. Respiratory: Denies: cough, hemoptysis, orthopnea, short of breath, sputum production. GI: Denies: abdominal pain, bloating. Genitourinary: Denies: discharge, dysuria. Musculoskeletal: Reports: back pain, joint pain. Neurological/Psychological: Denies: anxiety, depressed, emotional problems. Exam & Diagnostic Data Last 24 Hrs of Vital Signs/I&O Vital Signs Date Time Temp Pulse Resp B/P B/P Pulse O2 O2 Flow FiO2 Mean Ox Delivery Rate 01/26 0012 99.1 96 20 159/74 95 Nasal 2.0L Cannula 01/25 2018 98.0 102 20 173/62 90 Nasal 2.0L Cannula Intake & Output 01/26 0800 01/26 0000 01/25 1600 Intake Total Output Total 200 Balance -200 Output, Urine 200 Physical Exam General Appearance Alert, Oriented X3, Cooperative, Mild Distress Skin No Rashes, No Breakdown, No Significant Lesion Skin Temp/Moisture Exam: Warm/Dry Sepsis Skin Exam (color): Normal for Ethnicity HEENT Atraumatic, PERRLA, EOMI, Mucous Membr. moist/pink Neck Supple, No JVD Lymphatic Axillary nl, Cervical nl Cardiovascular Regular Rate, Normal S1, Normal S2, No Murmurs Lungs Clear to Auscultation, Normal Air Movement Abdomen Normal Bowel Sounds, Soft, No Tenderness Extremities No Clubbing, No Cyanosis, No Edema, Normal Pulses, tender on exam overright hip joint nad in thr right calf region, unable to lift right leg. Vascular Normal Pulses, Pulses Symmetrical Last 24 Hrs of Labs/Red: Laboratory Tests 01/25/18 2235: Anion Gap 9, Estimated GFR > 60, BUN/Creatinine Ratio 38.6 H, Glucose 138 H, Calcium 8.8, Total Bilirubin 0.5, AST 30, ALT 23, Alkaline Phosphatase 160 H, Creatine Kinase 33, C-React Prot High Sens 7.3 H, Total Protein 8.6 H, Albumin 3.5, Globulin 5.1 H, Albumin/Globulin Ratio 0.7 L, PT 14.1 H, INR 1.29 H, APTT 26, CBC w Diff MAN DIFF ORDERED, RBC 3.18 L, MCV 92.1, MCH 29.5, MCHC 32.0 L, RDW 24.8 H, MPV 8.2, Gran % 34.0 L, Lymphocytes % 39.7, Monocytes % 26.0 H, Eosinophils % 0, Basophils % 0.3, Absolute Granulocytes 1.4, Segmented Neutrophils 23 L, Absolute Lymphocytes 1.7, Lymphocytes 49, Monocytes 28 H, Absolute Monocytes 1.1 H, Absolute Eosinophils 0, Absolute Basophils 0, Platelet Estimate VERIFIED BY SMEAR, Normochromic RBCs VERIFIED, Anisocytosis 2+ , ESR Westergren 44 H, Fld Total RBCs Counted 100 Assessment/Plan Assessment: This is a 87-year-old female with past medical history significant for COPD on nocturnal oxygen, hypertension tension, hyperlipidemia, SLE on hydroxychloroquine and prednisone, chronic back pain, GERD, degenerative joint disease, multiple falls, osteopenia, anemia, MDS, urine incontinence was brought in by ambulance to the hospital for 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 -------- Vitals afebrile, heart rate 102, respiratory 20, blood pressure 173/62, saturating at 90 on 2 L oxygen Labs WBC 4.2, hemoglobin 9.4 and hematocrit 29, platelets 137 INR 1.29 Sodium 133, potassium 3.9, BUN 27, creatinine 0.7. She received IV morphine in the emergency room. Tibia-fibula x-ray/hip x-ray 1. Displaced fracture of the RIGHT femoral neck, cephalad migration of the femoral shaft. 2. Probably subacute fractures of both superior and inferior pubic rami. 3. Mild DJD of the knee. 4. Heavy vascular calcifications of the SFA. 5. Tibia and fibula are intact. --- 1. Displaced fracture of right femoral neck She presented with atraumatic right lower extremity pain when she woke up this morning. States that the entire leg is painful from her lower leg up to her hip. There was no known trauma or falls. Denies numbness or paresthesias. Unable to ambulate in the emergency room. Hip and pelvic x-ray showed displaced fracture of right femoral neck, subacute fractures of both superior and inferior pubic Rami. Tibia and fibula were intact. * Admit to [facility] med * Monitor vitals every shift * Right hip pain and right lower extremity pain from displaced fracture of right femoral neck * Ortho was consulted * Patient is n.p.o. * Follow-up Ortho recommendations * Will continue IV fluids * Pain management Tylenol, oxycodone, Dilaudid for mild/moderate and severe pain * Type and screen 2. Right calf pain Patient also reported right calf pain, noted to have tenderness on exam.. Will get ultrasound venous Doppler to rule out deep vein thrombosis * Follow-up venous Doppler right lower extremity * Tibial and fibula intact Chronic medical conditions COPD-albuterol and nocturnal oxygen Hyperlipidemia-Lipitor 20 daily SLE hydroxy chloroquine 200 daily and prednisone 5-twice daily Chronic back pain-continue home medication oxycodone 5 mg every 6 hours as needed GERD-continue omeprazole 20 daily Myelodysplastic ftbonfet-[id number]-[id number] threshold for blood transfusions Patient is full code N.p.o. pending Ortho evaluation DVT prophylaxis subcu heparin and alps, please discontinue heparin if her platelets drop pain pathway ordered As Ranked By This Provider Problem List: 1. Closed right hip fracture Core Measures/Misc (02/24) Acute Coronary Syndrome ACS Diagnosis: No Congestive Heart Failure Congestive Heart Failure Diagnosis No Cerebrovascular Accident CVA/TIA Diagnosis: No VTE (View Protocol) VTE Risk Factors Acute Medical Illness No Mechanical VTE Prophylaxis d/t Medical Contraindication No VTE Pharm Prophylaxis d/t Medical Contraindication Sepsis (View protocol) Sepsis Present: No If YES complete Sepsis Event Note If YES complete Sepsis Event Note Damon Edwards MD 01/26/18 6931: General Information and HPI MD Statement: I have seen and personally examined GRUPO HOANG and documented this H&P. The patient is a 87 year old F who presented with a patient stated chief complaint of [hip fracture]. Source of Information: patient Exam Limitations: no limitations Allergies/Medications Home Med list Acetaminophen (Tylenol Extra Strength) 500 MG TABLET 1 TAB PO Q6 PRN PAIN Albuterol Sulfate 2.5 MG/3 ML (0.083 %) VIAL.NEB 3 ML INH Q4P PRN SHORTNESS OF BREATH Atorvastatin Calcium 20 MG TABLET 20 MG PO 1700 HLD Cholecalciferol (Vitamin D3) (Vitamin D3) 2,000 UNIT TABLET 1 TAB PO DAILY VITAMIN SUPPORT (Reported) Hydroxychloroquine Sulfate 200 MG TABLET 1 TAB PO DAILY LUPUS (Reported) Lidocaine (Lidoderm) 5 % ADH..PATCH 1 PAT TOP Q24 PRN PAIN PLEASE LEAVE ON 12 HOURS AND THEN TAKE OFF FOR 12 HOURS EVERY DAY FOR PAIN Nitroglycerin (Nitro-Bid) 2 % OINT...G. 0.5 GM TOP Q6 PRN CHEST PAIN ( Reported) Omeprazole Magnesium (Prilosec Otc) 20 MG TABLET.DR 1 20MG PO DAILY ACID REFLUX (Reported) Oxycodone HCl 5 MG TABLET 5 MG PO Q6P PRN PAIN SCALE 4-6 (MODERATE) Potassium Chloride 10 MEQ TAB.ER.PRT 2 TAB PO BID SUPPLEMENT (Reported) Prednisone 5 MG TABLET 1 TAB PO BID LUPUS Past History Medical History Cardiovascular: hypertension, hyperlipidemia Respiratory: COPD Gastrointestinal: GERD Renal: urinary incontinence Musculoskeletal: degen joint disease, falls Endocrine: osteopenia SLE Blood Disorders: anemia, MYELODYSPLASIA Past Family/Social History Psychosocial History Smoking Status: Never Smoked ETOH Use: denies use Illicit Drug Use: denies illicit drug use Employment History Employment Retired Review of Systems Review of Systems Constitutional: Reports: see HPI. Exam & Diagnostic Data Last 24 Hrs of Vital Signs/I&O Vital Signs Date Time Temp Pulse Resp B/P B/P Pulse O2 O2 Flow FiO2 Mean Ox Delivery Rate 01/26 0523 100 Nasal 2.0L Cannula 01/26 0413 98.3 92 20 100/62 100 Nasal 2.0L Cannula 01/26 0301 98.7 92 18 155/74 94 Nasal 2.0L Cannula 01/26 0012 99.1 96 20 159/74 95 Nasal 2.0L Cannula 01/25 2018 98.0 102 20 173/62 90 Nasal 2.0L Cannula Intake & Output 01/26 0800 01/26 0000 01/25 1600 Intake Total Output Total 200 Balance -200 Output, Urine 200 Patient 90 lb 8 oz Weight Weight Bed scale Measurement Method Physical Exam General Appearance Alert, Oriented X3, Cooperative, Mild Distress Skin No Rashes, No Breakdown, No Significant Lesion Skin Temp/Moisture Exam: Warm/Dry Sepsis Skin Exam (color): Normal for Ethnicity HEENT Atraumatic, PERRLA, EOMI, Mucous Membr. moist/pink Neck Supple, No JVD Lymphatic Axillary nl, Cervical nl Cardiovascular Regular Rate, Normal S1, Normal S2, No Murmurs Lungs Clear to Auscultation, Normal Air Movement Abdomen Normal Bowel Sounds, Soft, No Tenderness, No Hepatospenomegaly Extremities No Clubbing, No Cyanosis Vascular Normal Pulses, Pulses Symmetrical Last 24 Hrs of Labs/Red: Laboratory Tests 01/25/182234: Anion Gap 9, Estimated GFR > 60, BUN/Creatinine Ratio 38.6 H, Glucose 138 H, Calcium 8.8, Total Bilirubin 0.5, AST 30, ALT 23, Alkaline Phosphatase 160 H, Creatine Kinase 33, C-React Prot High Sens 7.3 H, Total Protein 8.6 H, Albumin 3.5, Globulin 5.1 H, Albumin/Globulin Ratio 0.7 L, PT 14.1 H, INR 1.29 H, APTT 26, CBC w Diff MAN DIFF ORDERED, RBC 3.18 L, MCV 92.1, MCH 29.5, MCHC 32.0 L, RDW 24.8 H, MPV 8.2, Gran % 34.0 L, Lymphocytes % 39.7, Monocytes % 26.0 H, Eosinophils % 0, Basophils % 0.3, Absolute Granulocytes 1.4, Segmented Neutrophils 23 L, Absolute Lymphocytes 1.7, Lymphocytes 49, Monocytes 28 H, Absolute Monocytes 1.1 H, Absolute Eosinophils 0, Absolute Basophils 0, Platelet Estimate VERIFIED BY SMEAR, Normochromic RBCs VERIFIED, Anisocytosis 2+ , ESR Westergren 44 H, Fld Total RBCs Counted 100 Core Measures/Misc (02/24) Sepsis (View protocol) If YES complete Sepsis Event Note If YES complete Sepsis Event Note Attending MD Review Statement Attending Statement Attending MD Statement: examined this patient, discuss w/resident/PA/MEDICAL INSURANCE CODING SPECIALIST, agreed w/resident/PA/MEDICAL INSURANCE CODING SPECIALIST, reviewed EMR data (avail), reviewed images Attending Assessment/Plan: This patient is an 87-year-old female with significant past medical history for frequent admissions, COPD on nocturnal oxygen, hypertension, hyperlipidemia, SLE on hydroxychloroquine and prednisone, chronic back pain, GERD, degenerative joint disease, multiple falls, osteopenia, anemia, MDS, urine incontinence was brought in by ambulance to the hospital for evaluation of right leg pain. She presented with atraumatic right lower extremity pain the morning of admission. The entire leg is painful from her lower leg up to her hip. Patient normally ambulates with a walker at baseline, but states that she has had progressively worsening difficulty with ambulation. Now she is unable to ambulate at all. She was last admitted to [facility] in January 2018 for back pain and shoulder pain, she was found to have chronic rotator cuff injury. She was given 2 units of blood transfusion for acute on chronic anemia. She was treated for acute hypoxic respiratory failure secondary to pneumonia. Upon evaluation in the emergency department satting at 100% on 2 L, vital signs stable, white blood cell count 4.2, hemoglobin 9.4, INR 1.29, hyponatremia 133, BUN 27, alkaline phosphatase 160, extremity x-rays 1. Displaced fracture of the RIGHT femoral neck, cephalad migration of the femoral shaft. 2. Probably subacute fractures of both superior and inferior pubic rami. The patient will be admitted to [facility] for pain control and management of chronic illness. This patient is tenuous at baseline which could be worse with underlying fracture. Orthopedics to evaluate in the a.m. for intervention. Given the patients multiple comorbidities she is at high risk for surgery. Will need an EKG this morning. FULL CODE
[2018-01-26 04:13] VITALS: BP 100/62
[2018-01-26 09:30] LABS: ABSOLUTE BASOPHIL COUNT 0 /CUMM (0.0-0.2); ABSOLUTE EOSINOPHIL COUNT 0 /CUMM (0.0-0.7); ABSOLUTE GRANULOCYTE CT 0.9 /CUMM (1.4-6.5); ABSOLUTE LYMPH COUNT 2.1 /CUMM (1.2-3.4); ABSOLUTE MONOCYTE COUNT 2.2 /CUMM (0.10-0.60); BASOPHIL % 0.4 % (0.0-2.0); EOSINOPHIL % 0.2 % (0-5); GRANULOCYTE % 17.5 % (42.2-75.2); HEMATOCRIT 28.3 % (37-47); MEAN CORPUSCULAR HGB 29.4 PG (27.0-31.0); MEAN CORPUSCULAR VOLUME 91.7 FL (81.0-99.0); MEAN PLATELET VOLUME 8.3 FL (7.4-10.4); PLATELET COUNT 120 /CUMM (130-400); RBC DISTRIBUTION WIDTH 24.5 % (11.5-14.5); RED BLOOD CELL CT 3.08 /CUMM (4.20-5.40); WHITE BLOOD CELL COUNT 5.2 /CUMM (4.8-10.8)
--- NOTE | 2018-01-26 11:42 | ULTRASOUND REPORT ---
EXAMINATION: US TRIPLEX LOWER EXTREMITY, RIGHT CLINICAL INFORMATION: Right calf pain. COMPARISON: None TECHNIQUE: Color-flow triplex imaging with spectral analysis and compression Doppler were performed on the lower extremity. FINDINGS: Respiratory variation, normal compression and augmented flow are noted throughout the lower extremity. The visualized common femoral vein, superficial femoral vein, profunda femoral vein, popliteal vein and midcalf peroneal and posterior tibial venous segments show no evidence of deep venous thrombosis. There is no Marquez's cyst. IMPRESSION: No evidence of deep venous thrombosis involving the right lower extremity.
--- NOTE | 2018-01-26 14:07 | Cons- Cardiology ---
General Information and HPI Consulting Request Date of Consult: 01/26/18 Requested By: Damon Edwards MD History of Present Illness: Ms. Aguirre is an 87 year old female with history of hypertension, dyslipidemia, myelodysplastic syndrome, Lupus and COPD. She also carries a history of multiple falls. She has had chronic anemia with blood transfusions. Flavia was brought in by ambulance to the hospital for evaluation of right leg discomfort and was found to have a displaced right femoral neck fracture with subacute fractues of the inferior and superior pubic rami. A fall is denied. At baseline, this patient can normally walk with a walker. She denies any chest pain, pressure, tightness, shortness of breath, lightheadedness or palpitations. To review this patient's history, Flavia was found to be profoundly anemic with sinus tachycardia at approximately 120bpm when seen in October. In this setting she demonstrated a small rise in cardiac enzymes. The patient denied chest discomfort of any kind but did have some mild shortness of breath. Her event was though to be related to increased demand from a combination of anemia and tachycardia. I have no doubt that this patient has myocardial ischemia and, in fact, her prior echocardiogram showed a decreased EF with a regional wall motion abnormality. We opted to treat this medically. She was not thought to be a reasonable and safe candidate for acute intervention due to her breathing issues , inability to lie flat and very low platelets with bleeding at that time. It may be recalled that on a recent prior hospital admission in July this patient was hypotensive and was noted to have guaiac positive stool with a profoundly low H/H and platelets. Allergies/Medications Allergies: Coded Allergies: NO KNOWN ALLERGIES (NONE 12/24/17) Home Med List: Acetaminophen (Tylenol Extra Strength) 500 MG TABLET 1 TAB PO Q6 PRN PAIN Albuterol Sulfate 2.5 MG/3 ML (0.083 %) VIAL.NEB 3 ML INH Q4P PRN SHORTNESS OF BREATH Atorvastatin Calcium 20 MG TABLET 20 MG PO 1700 HLD Cholecalciferol (Vitamin D3) (Vitamin D3) 2,000 UNIT TABLET 1 TAB PO DAILY VITAMIN SUPPORT (Reported) Hydroxychloroquine Sulfate 200 MG TABLET 1 TAB PO DAILY LUPUS (Reported) Lidocaine (Lidoderm) 5 % ADH..PATCH 1 PAT TOP Q24 PRN PAIN PLEASE LEAVE ON 12 HOURS AND THEN TAKE OFF FOR 12 HOURS EVERY DAY FOR PAIN Nitroglycerin (Nitro-Bid) 2 % OINT...G. 0.5 GM TOP Q6 PRN CHEST PAIN ( Reported) Omeprazole Magnesium (Prilosec Otc) 20 MG TABLET.DR 1 20MG PO DAILY ACID REFLUX (Reported) Oxycodone HCl 5 MG TABLET 5 MG PO Q6P PRN PAIN SCALE 4-6 (MODERATE) Potassium Chloride 10 MEQ TAB.ER.PRT 2 TAB PO BID SUPPLEMENT (Reported) Prednisone 5 MG TABLET 1 TAB PO BID LUPUS Review of Systems Review of Systems: a review of systems is unremarkable Past History Travel History Traveled to [place] past 21 day No Medical History Blood Transfusion Hx: Yes Neurological: NONE EENT: NONE Cardiovascular: hypertension, hyperlipidemia Respiratory: COPD Gastrointestinal: GERD Hepatic: NONE Renal: urinary incontinence Musculoskeletal: degen joint disease, falls Psychiatric: NONE Endocrine: osteopenia SLE Blood Disorders: anemia, MYELODYSPLASIA Cancer(s): NONE CISCO CONSULTANT/Reproductive: NONE Surgical History Surgical History: SKIN GRAFT RIGHT LEG POST FALL Family History Relations & Conditions If Any: FATHER (Hx "liver ca" (? if primary vs. met); non-cirrhotic.). , Age 60+ ; Cause: Postoperative complication. MOTHER, , Age 60+; Cause: Unknown cause of morbidity or mortality. SON, , Age 30-40; Cause: MVA (motor vehicle accident). Psychosocial History Who Do You Live With? spouse (in law apt next to dtr), self Services at Home: None Primary Language: Armenian Smoking Status: Never Smoked ETOH Use: denies use Illicit Drug Use: denies illicit drug use Living Will? no Power of Basket Bottom Machine Operator/HCP? no Functional Ability ADLs Independent: dressing, eating, toileting, bathing. Ambulation: cane IADLs Independent: shopping, housework, finances, food prep, telephone, transportation , medication admin. Employment History Employment: Retired Exam & Diagnostic Data Vital Signs and I&O Vital Signs Date Time Temp Pulse Resp B/P B/P Pulse O2 O2 Flow FiO2 Mean Ox Delivery Rate 01/26 0800 Nasal 2.0L Cannula 01/26 0523 100 Nasal 2.0L Cannula 01/26 0413 98.3 92 20 100/62 100 Nasal 2.0L Cannula 01/26 0301 98.7 92 18 155/74 94 Nasal 2.0L Cannula 01/26 0012 99.1 96 20 159/74 95 Nasal 2.0L Cannula 01/25 2018 98.0 102 20 173/62 90 Nasal 2.0L Cannula Intake & Output 01/26 0000 01/25 0000 Intake Total 150 Output Total 200 Balance -50 Intake, IV 150 Output, Urine 200 Patient 90 lb 8 oz Weight Weight Bed scale Measurement Method Physical Exam: General: WD/WN female in NAD; alert and oriented x 3 HEENT: NC/AT, PERRL, EOMI Neck: no JVD, no carotid bruit Heart: RRR w/o murmur Lungs: No crackles or wheezing Abdomen: soft, NT, +ve bowel sounds Extremities; no edema with venous stasis changes, legs are ecchymotic Assessment/Plan Assessment/Plan * This patient is without symptoms at a very low level of physical activity but nevertheless had an MS three months ago. The [facility] feels that non-elective surgery is reasonable six weeks post MS although it is not without some risk. 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 Continue NTG during the perioperative period. I would not recommend a beta tomasz due to her borderline blood pressure. Consult Acknowledgment - Thank you for your consult request.
--- NOTE | 2018-01-26 16:21 | PN- Att Addend ---
Attending Addendum Attending Brief Note Rt femoral neck fracture- with rt leg pain . pt seen by cardio- pt recent echo showed ef of 40% and some hypokinesis. Pt also had type 2 [place] in october of this year. Cardiology consult appreciated and pt will be ok to go for surgery with increased risk given her benefit from the surgery. Pt does have other risks for the surgery like COPD for which she is on nocturnal oxygen, HTN, HLD and SLE. Will see how she does after surgery. Cardio recommending continuing her on NTG in peroperative period.
--- NOTE | 2018-01-26 20:36 | Operative Report ---
Operative/Inv Procedure Report Surgery Date: 01/26/18 Name of Procedure: Right hip hemiarthroplasty using the [employer] Accolade system size 5 stem cemented 43 mm outer diameter head and a -5 neck. Pre-Operative Diagnosis: Displaced right femoral neck fracture Post-Operative Diagnosis: Displaced right femoral neck fracture Estimated Blood Loss: 250cc Surgeon/Him Assistant: Farrah ramírez/lilliam tadeo pac Anesthesia: laryngeal mask airway Operative/Procedure Note Note: Patient was brought to the operating room and given a spinal anesthetic while in her bed. She was then gently transferred to the operating table placed in the lateral decubitus position with left side down. All bony extremities were padded. An axillary roll was placed. She did have a Muir catheter placed before the procedure. She did receive a gram of Kefzol antibiotics per right lower extremity was prepped and draped in usual sterile fashion. An 8 cm incision was carried out directly laterally over the proximal third of the femur and extending proximally. Took the incision down to the fascia mayra. Fascia mayra was split and extended proximally through the gluteus michael. We then identified the gluteus medius placed a Charnley retractor in place under the fascia mayra. We then took the anterior one third of the gluteus medius and the vastus lateralis did write down the middle. We took that whole sheet office and anterior flap. We exposed the lesser trochanter we used a template and made a cut on the femoral neck 1 fingerbreadth above the lesser trochanter. After completing that the femoral head was identified was removed removed with a corkscrew and skid. That was sized to a size 43. Thorough irrigation in the acetabulum was carried out we removed the soft tissue in the acetabulum. We then addressed the femur placed the femur across the body into a bag anteriorly with external rotation. We used a box osteotome to lateralize our canal. We then use an initial canal reamer and broached up to a size 5. With the size [address] we did a trial in a 43 out of outer diameter head with a -5 neck seem to give her excellent stability and good leg length. There was no shuck either. After doing the appropriate trials were then went ahead and placed our canal restrictor down the canal pulse irrigated the canal mixed our cement placed a cement in a doughy fashion down the canal under pressure placed the a component with slight anteversion held in place until cement cured removed removed any extraneous cement. We then put the final components on using a 43 outer diameter head -5 neck reduce the femur into the acetabulum she had excellent range of motion and excellent stability. Thorough pulsed irrigation was carried out we did pass some sutures through the greater trochanter to grab the gluteus medius and anterior flap due to the softness of her bone. 2 FiberWire sutures were used for this. We then closed the wound in layered fashion closing the fascia mayra closing the capsule first and the gluteus medius this all came together very nicely. Irrigation was carried out between layers the rest of the wound was closed in a layered fashion with sonu in the skin dry sterile dressings were applied and she was sent back to recovery room with a regular bed pillow between the legs. No complications all needle and instrument counts correct. She did require 2 units of blood during the surgery.
--- NOTE | 2018-01-26 22:05 | Event Note ---
Event Note Event Note: This is a 87-year-old female with past medical history significant for COPD on nocturnal oxygen, hypertension tension, hyperlipidemia, SLE on hydroxychloroquine and prednisone, chronic back pain, GERD, degenerative joint disease, multiple falls, osteopenia, anemia, MDS, urine incontinence admitted to hospital on 01/26/2018 for right hip pain and she was found to have displaced fracture of right femoral neck. She was seen by Dr. Pope this afternoon for clearance, off note she is at 5% risk for recurrent type II ID and postoperative complications given her risk factors. She is status post right hip hemiarthroplasty. Estimated blood loss was 600 mL. She required 2 units of blood transfusion during surgery. Postoperatively, when i saw her in PACU she is afebrile, sinus tachycardia 100- 120, systolic blood pressure ranging in between 65-95, hypoxic requiring nonrebreather mask. Plan is to transfer to ICU given her borderline blood pressure. Plan -She was started on peripheral phenylephrine drip in PACU given her systolic blood pressure in between 60-80. -Central line placement -start vasopressors through central line given her hemorrhagic shock. -Follow-up CBCs, transfuse to maintain hemoglobin above 8. -3 out of 5 PRBCs transfused. -Continue to follow-up platelet count. -Follow-up surgical recommendations regarding DVT prophylaxis. -Follow-up Ortho note. -Please recheck CBCs, BEP, troponin, EKG, lactic acid. -Discussed with Dr. Trino Jose. signed out to ICU team I spoke with patient daughter Rosalinda over phone regarding central line placement and starting vasopressors to improve blood pressure. Rosalinda agreed with the plan.
--- NOTE | 2018-01-26 22:09 | RADIOLOGY REPORT ---
EXAMINATION: XR HIP, RIGHT CLINICAL INFORMATION: Hemiarthroplasty COMPARISON: 1 day earlier TECHNIQUE: Single frontal view of the right hip. FINDINGS: Right hip prosthesis device now in place properly positioned within the acetabulum. Bone alignments are satisfactory. Subcutaneous emphysema related to surgery. There are vascular calcifications. Redemonstrated are fractures of the adjacent pubic rami. IMPRESSION: Right femoral head replacement prosthesis hemiarthroplasty.
--- NOTE | 2018-01-26 23:58 | RADIOLOGY REPORT ---
EXAMINATION: XR PORTABLE CHEST CLINICAL INFORMATION: Line placement COMPARISON: 12/24/2017 TECHNIQUE: Portable frontal view of the chest was obtained. FINDINGS: Newly positioned RIGHT central line catheter the tip of which projecting over the SVC/RA junction. There is otherwise no significant change. The lung apices are obscured from the film margin. Consider repeat follow-up chest x-ray. There are multiple LEFT lateral rib fractures. Pulmonary infiltrates is improving. IMPRESSION: 1. Line in place properly positioned. 2. The lung apices are obscured from the film margin, consider repeat chest x-ray if there is need for exclusion of pneumothorax. 3. Improving infiltrates at LEFT base.
[2018-01-27] VITALS: BP 80/0
[2018-01-27 00:58] LABS: ABSOLUTE BASOPHIL COUNT 0 /CUMM (0.0-0.2); ABSOLUTE EOSINOPHIL COUNT 0 /CUMM (0.0-0.7); ABSOLUTE GRANULOCYTE CT 3.3 /CUMM (1.4-6.5); ABSOLUTE LYMPH COUNT 1.8 /CUMM (1.2-3.4); ABSOLUTE MONOCYTE COUNT 0.9 /CUMM (0.10-0.60); BASOPHIL % 0.5 % (0.0-2.0); EOSINOPHIL % 0 % (0-5); HEMATOCRIT 33.1 % (37-47); MEAN CORPUSCULAR HGB 30.1 PG (27.0-31.0); MEAN CORPUSCULAR HGB CONC 32.9 G/DL (33.0-37.0); MEAN CORPUSCULAR VOLUME 91.7 FL (81.0-99.0); MEAN PLATELET VOLUME 8.6 FL (7.4-10.4); PLATELET COUNT 99 /CUMM (130-400); RBC DISTRIBUTION WIDTH 17.2 % (11.5-14.5); RED BLOOD CELL CT 3.61 /CUMM (4.20-5.40)
[2018-01-27 01:05] LABS: GRANULOCYTE % 54.9 % (42.2-75.2)
--- NOTE | 2018-01-27 02:00 | Proc Note Internal Medicine ---
Medicine Procedure Procedure Date: 01/27/18 Medical Procedure(s): central venous cath place Pre-Operative Diagnosis: hypotension Post-Operative Diagnosis: hypotension Estimated Blood Loss: scant Anesthesia: none Procedure Findings: A time-out was completed, verifying correct patient, procedure, site, and positioning. Patients right IJ area was prepped and draped in usual sterile fashion. 2% Lidocaine was used to anesthetize the area. A Triple lumen central line was introduced over a wire via the Seldinger technique, then sutured in place. Good blood flow was noted from all ports. The patient tolerated the procedure well. Chest x-ray was ordered to assess for pneumothorax and catheter placement. Complications: None Blood loss: Minimal
[2018-01-27 04:11] VITALS: BP 92/56
--- NOTE | 2018-01-27 05:21 | PN- Orthopedic ---
Subjective Subjective: Patient is alert this morning and answers brief questions she complains of moderate right hip pain and tenderness. Her family is present. Review of Systems: No fevers or chills Objective Vital Signs and I&Os Vital Signs Date Time Temp Pulse Resp B/P B/P Pulse O2 O2 Flow FiO2 Mean Ox Delivery Rate 01/27 0411 96.2 138 20 92/56 01/27 0345 100 Non 100% ReBreather 01/27 0042 123 70/00 01/26 1600 Nasal 2.0L Cannula 01/26 08 Nasal 2.0L Cannula 01/26 0523 100 Nasal 2.0L Cannula Intake & Output 01/27 0801/27 0000 01/26 1600 01/26 0800 01/26 0000 01/25 1600 Intake Total 585 150 Output Total 300 200 Balance 285 -50 Intake, IV 525 150 Intake, Oral 60 Output, Urine 300 200 Patient 90 lb 8 oz Weight Weight Bed scale Measurement Method Physical Exam: Physical examination patient is alert answers questions she is at her baseline Chest clear to auscultation symmetric without rales rhonchi or wheeze Heart tachycardic regular rhythm without murmurs rubs gallops Abdomen is flat without distention nontender to palpation Muir catheter output 12 mL to 60 mL every hour overnight Right hip moderate thigh edema with dressing clean dry and intact extremities cool with dorsalis pedis 1+. Skin moderate ecchymosis over extremities. Current Medications: Current Medications Sig/Zeb Start time Last Medication Dose Route Stop Time Status Admin Acetaminophen 0 .STK-MED ONE 01/27 0418 DC IV Acetaminophen 0 .STK-MED ONE 01/26 1720 DC IV Acetaminophen 650 MG Q6P PRN 01/26 0145 AC PO Acetaminophen 1,000 MG Q8P PRN 01/26 0145 AC 01/27 IV 0419 Albuterol Sulfate 3 ML Q4P PRN 01/26 0145 AC INH Atorvastatin Calcium 20 MG 1700 01/26 1700 AC PO Calcium Gluconate 0 .STK-MED ONE 01/27 0131 DC IV Calcium Gluconate 1 GM ONCE ONE 01/27 0130 DC 01/27 Sodium Chloride 100 ML IV 01/27 022 0137 Fentanyl Citrate 0 .STK-MED ONE 01/26 1720 DC .ROUTE Heparin Sodium 5,000 UNIT Q8 01/26 1400 AC 01/26 (Porcine) SC 1345 Hydromorphone HCl 0 .STK-MED ONE 01/26 0834 DC .ROUTE Hydromorphone HCl 0.5 MG Q4P PRN 01/26 0145 AC 01/27 IV 0508 Hydroxychloroquine 200 MG DAILY 01/26 0900 AC 01/26 Sulfate PO 0752 Morphine Sulfate 0 .STK-MED ONE 01/26 1721 DC .ROUTE Nitroglycerin 0.5 GM Q6 PRN 01/26 1945 AC TOP Norepinephrine 0 .STK-MED ONE 01/27 0318 DC IV Norepinephrine 4 MG Q24H 01/27 0030 AC 01/27 Sodium Chloride 250 ML IV 0411 Norepinephrine 0 .STK-MED ONE 01/27 0010 DC IV Omeprazole 20 MG DAILY AC 01/26 0700 AC 01/26 PO 0751 Oxycodone HCl 0 .STK-MED ONE 01/26 0748 DC PO Oxycodone HCl 5 MG Q6P PRN 01/26 0145 AC 01/26 PO 1346 Phenylephrine HCl 40 MG Q24H 01/26 2330 AC 01/27 Dextrose/Water 250 ML IV 0406 Phenylephrine HCl 0 .STK-MED ONE 01/26 2242 DC .ROUTE Prednisone 5 MG BID 01/26 09 AC 01/26 PO 0752 Sodium Chloride 1,000 ML BOLUS ONE 01/27 0130 DC 01/27 IV 01/27 0329 0145 Sodium Chloride 1,000 ML BOLUS ONE 01/27 0030 DC 01/27 IV 01/27 0229 0042 Sodium Chloride 1,000 ML Q20H 01/26 1030 DC IV Sodium Chloride 1,000 ML .[id number] 01/26 0145 DC 01/27 IV 01/27 0424 0357 Vasopressin 40 UNITS Q16H 01/27 0115 AC 01/27 Dextrose/Water 100 ML IV 0115 Results Last 48 Hours of Labs: Laboratory Tests 01/27 01/27 01/27 0400 0400 0340 Blood Gas pH (7.35 - 7.45 PH) 7.14 *L pCO2 (35 - 45 TORR) 32 L pO2 (80 - 100 TORR) 192 H HCO3 (21 - 28 MEQ/L) 11 L ABG O2 Sat (Measured) (>96.0 %) 98.0 P-50 (Temp Corrected) Y Carboxyhemoglobin (1.5 - 5.0 %) 0.3 L O2 Concentration % 100% Temperature (97.0 - 100.0 FARH) 96.2 L O2 Delivery Method NRB Chemistry Sodium Pending Potassium Pending Chloride Pending Carbon Dioxide Pending Anion Gap Pending BUN Pending Creatinine Pending BUN/Creatinine Ratio Pending Lactic Acid Pending Miscellaneous Phlebotomy Draw Site RIGHT RADIAL 01/27 2054 Chemistry Sodium (137 - 145 mmol/L) 136 L Potassium (3.5 - 5.1 mmol/L) 7.4 *H Chloride (98 - 107 mmol/L) 110 H Carbon Dioxide (22 - 30 mmol/L) 13 L Anion Gap (5 - 16) 13 BUN (7 - 17 mg/dL) 34 H Creatinine (0.5 - 1.0 mg/dL) 1.1 H Estimated GFR (>60 ml/min) 47 L Glucose (65 - 99 mg/dL) 93 Lactic Acid (0.7 - 2.1 mmol/L) 6.9 H Calcium (8.4 - 10.2 mg/dL) 7.5 L Phosphorus (2.5 - 4.5 mg/dL) 11.0 H Magnesium (1.6 - 2.3 mg/dL) 2.2 Total Bilirubin (0.2 - 1.3 mg/dL) 0.8 AST (14 - 36 U/L) 46 H ALT (9 - 52 U/L) 38 Troponin I (< 0.11 ng/ml) 0.05 Albumin (3.5 - 5.0 g/dL) 2.3 L Hematology CBC w Diff MAN DIFF ORDERED Cancelled WBC (4.8 - 10.8 /CUMM) 6.0 Cancelled RBC (4.20 - 5.40 /CUMM) 3.61 L Cancelled Hgb (12.0 - 16.0 G/DL) 10.9 L Cancelled Hct (37 - 47 %) 33.1 L Cancelled MCV (81.0 - 99.0 FL) 91.7 Cancelled MCH (27.0 - 31.0 PG) 30.1 Cancelled MCHC (33.0 - 37.0 G/DL) 32.9 L Cancelled RDW (11.5 - 14.5 %) 17.2 H Cancelled Plt Count (130 - 400 /CUMM) 99 L Cancelled MPV (7.4 - 10.4 FL) 8.6 Cancelled Gran % (42.2 - 75.2 %) 54.9 Lymphocytes % (20.5 - 51.1 %) 29.8 Monocytes % (1.7 - 9.3 %) 14.8 H Eosinophils % (0 - 5 %) 0 Basophils % (0.0 - 2.0 %) 0.5 Absolute Granulocytes (1.4 - 6.5 /CUMM) 3.3 Segmented Neutrophils (42.2 - 75.2 %) 50 Band Neutrophils (0.0 - 5.0 %) 1 Absolute Lymphocytes (1.2 - 3.4 /CUMM) 1.8 Lymphocytes (20.5 - 51.1 %) 33 Monocytes (1.7 - 9.3 %) 16 H Absolute Monocytes (0.10 - 0.60 /CUMM) 0.9 H Absolute Eosinophils (0.0 - 0.7 /CUMM) 0 Absolute Basophils (0.0 - 0.2 /CUMM) 0 Nucleated RBCs (0.0 - 0.0 /100WBC) 3 H Platelet Estimate (ADEQUATE) DECREASED Polychromasia 1+ 01/26 0800 Chemistry Sodium (137 - 145 mmol/L) 134 L Potassium (3.5 - 5.1 mmol/L) 4.0 Chloride (98 - 107 mmol/L) 97 L Carbon Dioxide (22 - 30 mmol/L) 28 Anion Gap (5 - 16) 8 BUN (7 - 17 mg/dL) 26 H Creatinine (0.5 - 1.0 mg/dL) 0.7 Estimated GFR (>60 ml/min) > 60 BUN/Creatinine Ratio (7 - 25 %) 37.1 H Hematology CBC w Diff Cancelled MAN DIFF ORDERED WBC (4.8 - 10.8 /CUMM) Cancelled 5.2 RBC (4.20 - 5.40 /CUMM) Cancelled 3.08 L Hgb (12.0 - 16.0 G/DL) Cancelled 9.1 L Hct (37 - 47 %) Cancelled 28.3 L MCV (81.0 - 99.0 FL) Cancelled 91.7 MCH (27.0 - 31.0 PG) Cancelled 29.4 MCHC (33.0 - 37.0 G/DL) Cancelled 32.0 L RDW (11.5 - 14.5 %) Cancelled 24.5 H Plt Count (130 - 400 /CUMM) Cancelled 120 L MPV (7.4 - 10.4 FL) Cancelled 8.3 Gran % (42.2 - 75.2 %) 17.5 L Lymphocytes % (20.5 - 51.1 %) 40.5 Monocytes % (1.7 - 9.3 %) 41.4 H Eosinophils % (0 - 5 %) 0.2 Basophils % (0.0 - 2.0 %) 0.4 Absolute Granulocytes (1.4 - 6.5 /CUMM) 0.9 L Absolute Lymphocytes (1.2 - 3.4 /CUMM) 2.1 Absolute Monocytes (0.10 - 0.60 /CUMM) 2.2 H Absolute Eosinophils (0.0 - 0.7 /CUMM) 0 Absolute Basophils (0.0 - 0.2 /CUMM) 0 Platelet Estimate (ADEQUATE) DECREASED Hypochromic-Microcytic 2+ Anisocytosis 1+ 01/25 2235 Chemistry Sodium (137 - 145 mmol/L) 133 L Potassium (3.5 - 5.1 mmol/L) 3.9 Chloride (98 - 107 mmol/L) 95 L Carbon Dioxide (22 - 30 mmol/L) 28 Anion Gap (5 - 16) 9 BUN (7 - 17 mg/dL) 27 H Creatinine (0.5 - 1.0 mg/dL) 0.7 Estimated GFR (>60 ml/min) > 60 BUN/Creatinine Ratio (7 - 25 %) 38.6 H Glucose (65 - 99 mg/dL) 138 H Calcium (8.4 - 10.2 mg/dL) 8.8 Total Bilirubin (0.2 - 1.3 mg/dL) 0.5 AST (14 - 36 U/L) 30 ALT (9 - 52 U/L) 23 Alkaline Phosphatase (<127 U/L) 160 H Creatine Kinase (30 - 135 U/L) 33 C-React Prot High Sens (1.0 - 3.0 mg/L) 7.3 H Total Protein (6.3 - 8.2 g/dL) 8.6 H Albumin (3.5 - 5.0 g/dL) 3.5 Globulin (1.9 - 4.2 gm/dL) 5.1 H Albumin/Globulin Ratio (1.1 - 2.2 %) 0.7 L Coagulation PT (9.4 - 12.5 SEC) 14.1 H INR (0.90 - 1.19) 1.29 H APTT (25 - 37 SEC) 26 Hematology CBC w Diff MAN DIFF ORDERED WBC (4.8 - 10.8 /CUMM) 4.2 L RBC (4.20 - 5.40 /CUMM) 3.18 L Hgb (12.0 - 16.0 G/DL) 9.4 L Hct (37 - 47 %) 29.3 L MCV (81.0 - 99.0 FL) 92.1 MCH (27.0 - 31.0 PG) 29.5 MCHC (33.0 - 37.0 G/DL) 32.0 L RDW (11.5 - 14.5 %) 24.8 H Plt Count (130 - 400 /CUMM) 137 MPV (7.4 - 10.4 FL) 8.2 Gran % (42.2 - 75.2 %) 34.0 L Lymphocytes % (20.5 - 51.1 %) 39.7 Monocytes % (1.7 - 9.3 %) 26.0 H Eosinophils % (0 - 5 %) 0 Basophils % (0.0 - 2.0 %) 0.3 Absolute Granulocytes (1.4 - 6.5 /CUMM) 1.4 Segmented Neutrophils (42.2 - 75.2 %) 23 L Absolute Lymphocytes (1.2 - 3.4 /CUMM) 1.7 Lymphocytes (20.5 - 51.1 %) 49 Monocytes (1.7 - 9.3 %) 28 H Absolute Monocytes (0.10 - 0.60 /CUMM) 1.1 H Absolute Eosinophils (0.0 - 0.7 /CUMM) 0 Absolute Basophils (0.0 - 0.2 /CUMM) 0 Platelet Estimate (ADEQUATE) VERIFIED BY SMEAR Normochromic RBCs VERIFIED Anisocytosis 2+ ESR Westergren (0 - 20 MM) 44 H Other Body Source Fld Total RBCs Counted (%) 100 Recent Imaging Studies: Postoperative x-ray reveals good position of the hardware Assessment/Plan Assessment/Plan Postop day 1 after right hip hemiarthroplasty currently on 3 vasopressors to maintain her blood pressure. Waiting a.m. labs to maintain her hemoglobin above 8 repeat BEP K hemolyzed She will need to doses of IV Ancef postop Advance diet slowly to clears DVT prophylaxis Alps and start hep subq Core Measures Venous Thromboembolism VTE Risk Factors Acute Medical Illness No Mechanical VTE Prophylaxis d/t Medical Contraindication No VTE Pharm Prophylaxis d/t Medical Contraindication
--- NOTE | 2018-01-27 05:50 | Event Note ---
Event Note Event Note: 87 year old female transferred to ICU postoperatively s/p right hip hemiarthroplasty with an EBL of 600cc. She was given 4 units of blood transfusion perioperatively and an additional one unit in the ICU. She was tachycardic, hypotensive, cold, and clammy concerning for hypovolemic shock from acute blood loss anemia. A R IJ central venous line was placed and the patient was started on norepinephrine, phenylephrine, and vasopressin to support her blood pressure. She was placed on a non rebreather mask and had numerous electrolyte abnormalities notably metabolic acidosis, lactic acidemia and hyperkalemia treated with calcium gluconate. The patient's lactic acidemia improved with fluid resuscitation but she remains hypotensive, hypoxic, oliguric , and less responsive than previously. Her respiratory rate is beginning to slow down and she seems no longer able to compensate for her metabolic acidosis. Her declining clinical condition was discussed with family at the bedside and they want her to be DNR/DNI in case she continues to worsen they do not want any chest compression or mechanical ventilation. Plan -She was started on peripheral phenylephrine drip in PACU given her systolic blood pressure in between 60-80. -Central line placement -start vasopressors through central line given her hemorrhagic shock. -Follow-up CBCs, transfuse to maintain hemoglobin above 8. -3 out of 5 PRBCs transfused. -Continue to follow-up platelet count. -Follow-up surgical recommendations regarding DVT prophylaxis. -Follow-up Ortho note. -Please recheck CBCs, BEP, troponin, EKG, lactic acid. -Discussed with Dr. Trino Jose. signed out to ICU team
--- NOTE | 2018-01-27 05:58 | Event Note ---
Event Note Event Note: This patient is an 87-year-old female admitted 01/26/18 with a displaced fracture of the RIGHT femoral neck, cephalad migration of the femoral shaft. Status post- surgical repair on 01/26/18 evening. The patient had approximately 600 mL of blood loss during the procedure and was hypotensive in the PACU. She was started on pressors and brought to the intensive care unit. Overnight a central line was placed, high flow oxygen was administered and pressors were added to maintain adequate critical organ perfusion. She received blood and fluids throughout the night however she remains tachycardic with a low blood pressure on three pressors. Her H&H has normalized and she is making urine. The patients daughter is at the bedside and is aware of the critical nature of the patients current situation and possible sequela. The daughter is under the impression that the patient is a DNI however it is documented that she is a full code. The family is okay with the plan to hold off intubation for now to see if she turns around and to get input from the day team. The family is aware that her overall prognosis is poor.
--- NOTE | 2018-01-27 07:22 | PN- Resident CRCU ---
Subjective HPI/CRCU Issues: Cardiopulmonary arrest Objective Vital Signs & I&O Last 8 Hrs of Vitals and I&O: Laboratory Tests 01/27 01/27 01/27 0600 0600 0400 Chemistry Sodium (137 - 145 mmol/L) Cancelled 136 L Potassium (3.5 - 5.1 mmol/L) Cancelled 7.6 *H Chloride (98 - 107 mmol/L) Cancelled 112 H Carbon Dioxide (22 - 30 mmol/L) Cancelled 16 L Anion Gap (5 - 16) Cancelled 7 BUN (7 - 17 mg/dL) Cancelled 33 H Creatinine (0.5 - 1.0 mg/dL) Cancelled 1.2 H Estimated GFR (>60 ml/min) 42 L BUN/Creatinine Ratio Cancelled Glucose (65 - 99 mg/dL) 130 H Lactic Acid (0.7 - 2.1 mmol/L) 8.3 H 4.8 H Calcium (8.4 - 10.2 mg/dL) 7.0 L Phosphorus (2.5 - 4.5 mg/dL) 13.1 H Magnesium (1.6 - 2.3 mg/dL) 2.2 Total Bilirubin (0.2 - 1.3 mg/dL) 0.4 AST (14 - 36 U/L) 475 H ALT (9 - 52 U/L) 470 H Albumin (3.5 - 5.0 g/dL) 1.4 L Coagulation PT (9.4 - 12.5 SEC) 34.1 H INR (0.90 - 1.19) 3.09 H APTT (25 - 37 SEC) 75 H Hematology CBC w Diff MAN DIFF ORDERED WBC (4.8 - 10.8 /CUMM) 9.4 RBC (4.20 - 5.40 /CUMM) 2.58 L Hgb (12.0 - 16.0 G/DL) 7.7 L Hct (37 - 47 %) 24.2 L MCV (81.0 - 99.0 FL) 93.8 MCH (27.0 - 31.0 PG) 29.7 MCHC (33.0 - 37.0 G/DL) 31.7 L RDW (11.5 - 14.5 %) 17.4 H Plt Count (130 - 400 /CUMM) 67 L MPV (7.4 - 10.4 FL) 8.7 Segmented Neutrophils (42.2 - 75.2 %) 21 L Band Neutrophils (0.0 - 5.0 %) 1 Lymphocytes (20.5 - 51.1 %) 24 Monocytes (1.7 - 9.3 %) 54 H Nucleated RBCs (0.0 - 0.0 /100WBC) 4 H Platelet Estimate (ADEQUATE) DECREASED Polychromasia 1+ Poikilocytosis 2+ Anisocytosis 1+ Bhargav Cells 2+ 01/27 01/27 0400 0340 Blood Gas pH (7.35 - 7.45 PH) 7.14 *L pCO2 (35 - 45 TORR) 32 L pO2 (80 - 100 TORR) 192 H HCO3 (21 - 28 MEQ/L) 11 L ABG O2 Sat (Measured) (>96.0 %) 98.0 P-50 (Temp Corrected) Y Carboxyhemoglobin (1.5 - 5.0 %) 0.3 L O2 Concentration % 100% Temperature (97.0 - 100.0 FARH) 96.2 L O2 Delivery Method NRB Chemistry Sodium (137 - 145 mmol/L) 137 Potassium (3.5 - 5.1 mmol/L) 5.0 Chloride (98 - 107 mmol/L) 113 H Carbon Dioxide (22 - 30 mmol/L) 12 L Anion Gap (5 - 16) 12 BUN (7 - 17 mg/dL) 34 H Creatinine (0.5 - 1.0 mg/dL) 1.0 Estimated GFR (>60 ml/min) 52 L BUN/Creatinine Ratio (7 - 25 %) 34.0 H Miscellaneous Phlebotomy Draw Site RIGHT RADIAL 01/27 Chemistry Sodium (137 - 145 mmol/L) 136 L Potassium (3.5 - 5.1 mmol/L) 7.4 *H Chloride (98 - 107 mmol/L) 110 H Carbon Dioxide (22 - 30 mmol/L) 13 L Anion Gap (5 - 16) 13 BUN (7 - 17 mg/dL) 34 H Creatinine (0.5 - 1.0 mg/dL) 1.1 H Estimated GFR (>60 ml/min) 47 L Glucose (65 - 99 mg/dL) 93 Lactic Acid (0.7 - 2.1 mmol/L) 6.9 H Calcium (8.4 - 10.2 mg/dL) 7.5 L Phosphorus (2.5 - 4.5 mg/dL) 11.0 H Magnesium (1.6 - 2.3 mg/dL) 2.2 Total Bilirubin (0.2 - 1.3 mg/dL) 0.8 AST (14 - 36 U/L) 46 H ALT (9 - 52 U/L) 38 Troponin I (< 0.11 ng/ml) 0.05 Albumin (3.5 - 5.0 g/dL) 2.3 L Hematology CBC w Diff MAN DIFF ORDERED Cancelled WBC (4.8 - 10.8 /CUMM) 6.0 Cancelled RBC (4.20 - 5.40 /CUMM) 3.61 L Cancelled Hgb (12.0 - 16.0 G/DL) 10.9 L Cancelled Hct (37 - 47 %) 33.1 L Cancelled MCV (81.0 - 99.0 FL) 91.7 Cancelled MCH (27.0 - 31.0 PG) 30.1 Cancelled MCHC (33.0 - 37.0 G/DL) 32.9 L Cancelled RDW (11.5 - 14.5 %) 17.2 H Cancelled Plt Count (130 - 400 /CUMM) 99 L Cancelled MPV (7.4 - 10.4 FL) 8.6 Cancelled Gran % (42.2 - 75.2 %) 54.9 Lymphocytes % (20.5 - 51.1 %) 29.8 Monocytes % (1.7 - 9.3 %) 14.8 H Eosinophils % (0 - 5 %) 0 Basophils % (0.0 - 2.0 %) 0.5 Absolute Granulocytes (1.4 - 6.5 /CUMM) 3.3 Segmented Neutrophils (42.2 - 75.2 %) 50 Band Neutrophils (0.0 - 5.0 %) 1 Absolute Lymphocytes (1.2 - 3.4 /CUMM) 1.8 Lymphocytes (20.5 - 51.1 %) 33 Monocytes (1.7 - 9.3 %) 16 H Absolute Monocytes (0.10 - 0.60 /CUMM) 0.9 H Absolute Eosinophils (0.0 - 0.7 /CUMM) 0 Absolute Basophils (0.0 - 0.2 /CUMM) 0 Nucleated RBCs (0.0 - 0.0 /100WBC) 3 H Platelet Estimate (ADEQUATE) DECREASED Polychromasia 1+ 01/26 2045 Hematology CBC w Diff Cancelled WBC Cancelled RBC Cancelled Hgb Cancelled Hct Cancelled MCV Cancelled MCH Cancelled MCHC Cancelled RDW Cancelled Plt Count Cancelled MPV Cancelled Vital Signs Date Time Temp Pulse Resp B/P B/P Pulse O2 O2 Flow FiO2 Mean Ox Delivery Rate 01/27 0411 96.2 138 20 92/56 01/27 0400 100 Non 100% ReBreather 01/27 0345 100 Non 100% ReBreather 01/27 0042 123 70/00 01/27 0000 100 Non 100% ReBreather 01/27 0000 95.4 112 28 80/0 100 Non 100% ReBreather Intake & Output 01/27 1600 01/27 0800 01/27 0000 Intake Total Output Total 159 Balance -159 Output, Urine 159 Exam General Appearance: cachetic, moderate distress, severe distress Head: atraumatic Respiratory: on non rebreather Current Medications: Current Medications Sig/Zeb Start time Last Medication Dose Route Stop Time Status Admin Acetaminophen 0 .STK-MED ONE 01/27 0418 DC IV Acetaminophen 0 .STK-MED ONE 01/26 1720 DC IV Acetaminophen 650 MG Q6P PRN 01/26 0145 DCD PO Acetaminophen 1,000 MG Q8P PRN 01/26 0145 DCD 01/27 IV 0419 Albuterol Sulfate 3 ML Q4P PRN 01/26 0145 DCD INH Atorvastatin Calcium 20 MG 1700 01/26 1700 DCD PO Calcium Gluconate 0 .STK-MED ONE 01/27 0131 DC IV Calcium Gluconate 1 GM ONCE ONE 01/27 0130 DC 01/27 Sodium Chloride 100 ML IV 01/27 0229 0137 Cefazolin Sodium 1,000 MG IQ8 01/27 0800 DCD IV 01/27 1601 Fentanyl Citrate 0 .STK-MED ONE 01/26 1720 DC .ROUTE Heparin Sodium 5,000 UNIT Q8 01/27 0600 DCD (Porcine) SC Heparin Sodium 5,000 UNIT Q8 01/26 1400 DCD 01/27 (Porcine) SC 0615 Hydromorphone HCl 0.5 MG Q4P PRN 01/26 0145 DCD 01/27 IV 0508 Hydroxychloroquine 200 MG DAILY 01/26 0900 DCD 01/26 Sulfate PO 0752 Morphine Sulfate 0 .STK-MED ONE 01/26 1721 DC .ROUTE Nitroglycerin 0.5 GM Q6 PRN 01/26 1945 DCD TOP Norepinephrine 0 .STK-MED ONE 01/27 0318 DC IV Norepinephrine 4 MG Q24H 01/27 0030 DCD 01/27 Sodium Chloride 250 ML IV 0411 Norepinephrine 0 .STK-MED ONE 01/27 0010 DC IV Omeprazole 20 MG DAILY AC 01/26 0700 DCD 01/26 PO 0751 Oxycodone HCl 5 MG Q6P PRN 01/26 0145 DCD 01/26 PO 1346 Phenylephrine HCl 40 MG Q24H 01/26 2330 DCD 01/27 Dextrose/Water 250 ML IV 0406 Phenylephrine HCl 0 .STK-MED ONE 01/26 2242 DC .ROUTE Prednisone 5 MG BID 01/26 0900 DCD 01/26 PO 0752 Sodium Chloride 1,000 ML BOLUS ONE 01/27 0600 DC 01/27 IV 01/27 0759 0612 Sodium Chloride 1,000 ML BOLUS ONE 01/27 0130 DC 01/27 IV 01/27 0329 0145 Sodium Chloride 1,000 ML BOLUS ONE 01/27 0030 DC 01/27 IV 01/27 0229 0042 Sodium Chloride 1,000 ML .[id number] 01/26 0145 DC 01/27 IV 01/27 0424 0357 Vasopressin 40 UNITS Q16H 01/27 0115 DCD 01/27 Dextrose/Water 100 ML IV 0115 Impression/Plan Impression/Problem List Impression: The patient is a 87-year-old female with past medical history significant for COPD on nocturnal oxygen, hypertension tension, hyperlipidemia, SLE on hydroxychloroquine and prednisone, chronic back pain, GERD, degenerative joint disease, multiple falls, osteopenia, anemia, MDS, urine incontinence was brought in by ambulance to the hospital for 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 Displaced fracture of the RIGHT femoral neck, cephalad migration of the femoral shaft. 2. Probably subacute fractures of both superior and inferior pubic rami. 3. Mild DJD of the knee. 4. Heavy vascular calcifications of the SFA. 5. Tibia and fibula are intact. The patient was admitted to general medical floor for displaced fracture of right femoral neck. Patient was found to undergo right hip hemiarthroplasty. She was seen by cardiology and was noted to have 5% risk of recurrent type II OH and postop complication given her risk factors. She underwent right hip alan- arthroplasty with estimated blood loss of 600 mL requiring 2 units of blood transfusions during the surgery. The patient was evaluated by resident in PACU was found to be afebrile sinus tachycardia 100-120 and systolic blood pressure ranging between 65-90, hypoxic requiring nonrebreather. She was transferred to ICU for management of circulatory shock. She was started on peripheral phenylephrine drip in PACU. She was transfused 3 more units making total of 5 units packed RBCs. She underwent central line placement and was started on norepinephrine, phenylephrine, and vasopressin to support her blood pressure. As per documentation patient was tachycardic, hypotensive,: Calamine concerning for hypovolemic shock secondary to acute blood loss anemia. He was also placed on nonrebreather mask. Repeat labs showed numerous electrolyte abnormalities with metabolic acidosis lactic acidemia and hyperkalemia. She received calcium gluconate. Her lactic acidosis improved with fluid resuscitation but however she remained hypotensive hypoxic and oliguric and became less responsive. Family was contacted. Patient was made DNR/DNI. His sclerae her clinical condition continued to deteriorate. 100 respiratory rate continued to go up on nonrebreather and so did her heart rate. Patient underwent cardiopulmonary arrest at 7:20 AM on 01/27/2018. I pronounced the patient and notified the family. They were at her bedside. Autopsy was offered however they declined. Problem List: 1. Closed right hip fracture Pain Ratin Tomorrow's Labs & Rationales: none Plan DVT/Prophylaxis: mechanical
--- NOTE | 2018-01-27 07:22 | Event Note ---
Event Note Event Note: S B AP -pt at 6
[2018-01-27 08:16] LABS: MEAN CORPUSCULAR HGB 29.7 PG (27.0-31.0); MEAN CORPUSCULAR HGB CONC 31.7 G/DL (33.0-37.0); MEAN CORPUSCULAR VOLUME 93.8 FL (81.0-99.0); MEAN PLATELET VOLUME 8.7 FL (7.4-10.4); RBC DISTRIBUTION WIDTH 17.4 % (11.5-14.5)
[2018-01-27 08:23] LABS: PT 34.1 SEC (9.4-12.5); PTT 75 SEC (25-37)
[2018-01-27 08:44] LABS: HEMATOCRIT 24.2 % (37-47); RED BLOOD CELL CT 2.58 /CUMM (4.20-5.40); WHITE BLOOD CELL COUNT 9.4 /CUMM (4.8-10.8)
[2018-01-27 09:46] LABS: PLATELET COUNT 67 /CUMM (130-400)
--- NOTE | 2018-01-27 17:03 | Discharge Summary ---
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 Displaced fracture of the RIGHT femoral neck, cephalad migration of the femoral shaft. 2. Probably subacute fractures of both superior and inferior pubic rami. 3. Mild DJD of the knee. 4. Heavy vascular calcifications of the SFA. 5. Tibia and fibula are intact. The patient was admitted to general medical floor for displaced fracture of right femoral neck. Patient was planned to undergo right hip hemiarthroplasty. She was seen by cardiology and was noted to have 5% risk of recurrent type II CA and postop complication given her risk factors. She underwent right hip alan- arthroplasty with estimated blood loss of 600 mL requiring 2 units of blood transfusions during the surgery. The patient was evaluated by resident in PACU was found to be afebrile sinus tachycardia 100-120 and systolic blood pressure ranging between 65-90, hypoxic requiring nonrebreather. She was transferred to ICU for management of circulatory shock. She was started on peripheral phenylephrine drip in PACU. She was transfused 3 more units making total of 5 units packed RBCs. She underwent central line placement and was started on norepinephrine, phenylephrine, and vasopressin to support her blood pressure. As per documentation patient was tachycardic, hypotensive, cold, calmy concerning for hypovolemic shock secondary to acute blood loss anemia. She was also placed on nonrebreather mask. Repeat labs showed numerous electrolyte abnormalities with metabolic acidosis lactic acidemia and hyperkalemia. She received calcium gluconate. Her lactic acidosis improved with fluid resuscitation but however she remained hypotensive hypoxic and oliguric and became less responsive. Family was contacted. Patient was made DNR/DNI. Her clinical condition continued to deteriorate. Her respiratory rate continued to go down on nonrebreather and so did her heart rate. Patient underwent cardiopulmonary arrest at 7:20 AM on 01/27/2018. Resuscitation was performed in setting of DNR/DNI CODE STATUS .I pronounced the patient and notified the family. They were at her bedside. Autopsy was offered however they declined. Allergies: Coded Allergies: NO KNOWN ALLERGIES (NONE 12/24/17) Disposition Summary Disposition Principal Diagnosis: s/p right hip hemiarthroplasty Additional Diagnosis: Acute blood loss anemia resulting in hemorrhagic shock Discharge Disposition: Discharge Instructions General Discharge Information Code Status: Do Not Resucitate/Intubat Patient's Diet: none Patient's Activity: none Follow-Up Instructions/Appts: none Copies To: Lauryn PROCTOR,[place] Bain Attending Review Statement Documenting Attending: Martha PROCTOR,Clint Frausto Other Findings: ABOVE MANGAGED BY OVERNIGHT TEAM PT WAS DNR AND DNI DID NOT RESPOND TO AGG RESUSITATION AND AT THE TIME OF SIGN OUT TO MY SERVICE
== END 2018-01-27 07:20 | disposition expired | DRG 469 ==
LOC: ERH 20:11 → CRI 01-26 00:43 → ERHI 01-26 00:43 → ENRESERV 01-26 02:47 → 2NA 01-26 04:04 → CRI 01-26 21:39 → ENTRNSPT 01-26 22:14 → EDTRNSPT 01-26 22:32 → EDTRNSPTSTS 01-26 22:32 → CMPTRNSPT 01-26 22:40 → CRI 01-27 07:20 → ENTRNSPT 01-27 08:52 → EDTRNSPTSTS 01-27 09:17 → EDTRNSPT 01-27 09:17 → CMPTRNSPT 01-27 09:47
PROVIDERS: General Practice; Hospitalist; Physician Assistant
PROC: 30233N1 Transfusion of Nonautologous Red Blood Cells into Peripheral Vein, Percutaneous Approach (ICD-10-PCS; principal; 2018-01-26)
PROC: 0SRR0J9 Replacement of Right Hip Joint, Femoral Surface with Synthetic Substitute, Cemented, Open Approach (ICD-10-PCS; 2018-01-26)
PROC: 02HV33Z Insertion of Infusion Device into Superior Vena Cava, Percutaneous Approach (ICD-10-PCS; 2018-01-26)
DX: M84.459A Pathological fracture, hip, unspecified, initial encounter for fracture (principal); T81.19XA Other postprocedural shock, initial encounter; D62 Acute posthemorrhagic anemia; E87.2 Acidosis; I97.121 Postprocedural cardiac arrest following other surgery; J44.9 Chronic obstructive pulmonary disease, unspecified; Z99.81 Dependence on supplemental oxygen; E78.5 Hyperlipidemia, unspecified; I10 Essential (primary) hypertension; Z91.81 History of falling; M32.9 Systemic lupus erythematosus, unspecified; Z79.52 Long term (current) use of systemic steroids; M54.9 Dorsalgia, unspecified; K21.9 Gastro-esophageal reflux disease without esophagitis; M85.80 Other specified disorders of bone density and structure, unspecified site; D46.9 Myelodysplastic syndrome, unspecified; R32 Unspecified urinary incontinence; Z79.51 Long term (current) use of inhaled steroids; M84.454A Pathological fracture, pelvis, initial encounter for fracture; I25.2 Old myocardial infarction; R00.0 Tachycardia, unspecified; M17.11 Unilateral primary osteoarthritis, right knee; Z66 Do not resuscitate; Y83.8 Other surgical procedures as the cause of abnormal reaction of the patient, or of later complication, without mention of misadventure at the time of the procedure; Y92.239 Unspecified place in hospital as the place of occurrence of the external cause; R09.02 Hypoxemia; E87.5 Hyperkalemia
CPT/HCPCS: CCU; 36415; 36592; 71045; 73501; 73502-RT; 73552; 73590-RT; 82436; 86920; 87071; 87086; 93005; 93010; 96374; C1713; J0131; J0610; J0690; J1644; J7040; J7060; J7512; P9016